=== PATIENT | female | born 1950 | race Caucasian/White ===

== ENCOUNTER 2016-10-10 14:32 | Inpatient (IN) | payer OTHER ==
--- NOTE | 2016-10-10 15:12 | PDOC ---
Attending Attestation - Resident Resident Name: Tj Carvajalson - ED Attending Attestation I have performed the following: I have examined & evaluated the patient, The case was reviewed & discussed with the resident, I agree w/resident's findings & plan, Exceptions are as noted - HPI HPI: 66 yo F history ESRD on HD (, , ), CVA, HTN, HL, GERD, prior kidney transplant (failed in 2011, back on dialysis since then) presents with elevated potassium. She states she was at [facility] yesterday for routine outpatient follow-up , had blood drawn. She was called back this morning with an abnormal value of 7. She states she is asymptomatic. She is due for dialysis tomorrow, but states she does not feel fluid-overloaded. Denies fever, cp, recent illness. - Physicial Exam PE: GENERAL: Awake, alert, and fully oriented, in no acute distress HEAD: No signs of trauma EYES: PERRLA, EOMI, sclera anicteric, conjunctiva clear ENT: Auricles normal inspection, hearing grossly normal, nares patent, oropharynx clear without exudates. Moist mucosa NECK: Normal ROM, supple, no lymphadenopathy, JVD, or masses LUNGS: Breath sounds equal, clear to auscultation bilaterally. No wheezes, and no crackles HEART: Regular rate and rhythm, normal S1 and S2, no murmurs, rubs or gallops ABDOMEN: Soft, nontender, normoactive bowel sounds. No guarding, no rebound. No masses EXTREMITIES: L upper arm with AV fistula, +thrill. Remainder of extremities with normal range of motion, no edema. No clubbing or cyanosis. No cords, erythema, or tenderness NEUROLOGICAL: Cranial nerves II through XII grossly intact. Normal speech, normal gait SKIN: Warm, Dry, normal turgor, no rashes or lesions noted. - Medical Decision Making Pt presents with elevated potassium on outpatient labs. EKG is normal sinus rhythm, possibly slight peaking in V3. Will send labs to recheck electrolytes. If K is elevated, will treat medically and call Dr. Fletcher for HD. Heart Score/ECG Review - ECG Impressions Comment:: EKG read 15:28- NSR 66 bpm, no ST elevations/depression. Slight peaking of T wave in V3.
[2016-10-10 16:06] LABS: MCH 28.2 pg (25.7-33.7); MCHC 31.3 g/dl (32.0-36.0); MEAN CELL VOLUME 90.3 fl (80-96); MEAN PLT VOLUME 8.5 fl (7.5-11.1); PLATELET COUNT 116 K/MM3 (134-434); RDW 15.3 % (11.6-15.6); WHITE BLOOD COUNT 5.5 K/mm3 (4.0-10.0)
--- NOTE | 2016-10-10 16:31 | PDOC ---
History of Present Illness - General Chief Complaint: Revisit, Lab Variance Stated Complaint: POTASSIUM IS VERY HIGH/SENT BY PCP Time Seen by Provider: 10/10/16 15:09 - History of Present Illness Initial Comments: 10/10/16 16:24 66 yo F with HTN, CAD, ESRD, on HD, and s/p right renal kidney transplant ( 2006 ) who presents with hyperkalemia. Pt. reports that she was at [facility] for conference regarding left kidney transplant following transplant kidney failure 2014. and had laboratory blood draw. When she arrived home she received telephone notification that her potassium levels were elevated ( K+ 7 ) and she should go to ED. She is currently asymptomatic and denies N/V, fatigue , SOB, chest pain, blurred vision, DAVILA, urinary, or abdominal complaints. Undergoes dialysis Monday, , and Monday. Takes 2 Units Insulin at night. Past History - Past Medical History Allergies/Adverse Reactions: Allergies Allergy/AdvReac Type Severity Reaction Status Date / Time codeine Allergy Verified 10/10/16 15:00 promethazine HCl Allergy Verified 10/10/16 15:00 [From Phenergan] Home Medications: Ambulatory Orders Atorvastatin Ca [Lipitor] 20 mg PO HS 11/12/15 Insulin Aspart [Novolog Flexpen] 0 unit SQ DAILY 11/12/15 Pantoprazole Sodium [Protonix] 20 mg PO DAILY 11/12/15 Levetiracetam [Keppra -] 250 mg PO BID 30 Days 11/16/15 Aspirin [ASA -] 81 mg PO DAILY #30 tab.chew 11/17/15 Clopidogrel Bisulfate [Plavix -] 75 mg PO DAILY tablet 11/17/15 Metoprolol Tartrate [Lopressor -] 50 mg PO BID #60 tablet 11/17/15 Calcium Acetate [Phoslo -] 667 mg PO TIDCM 12/01/15 Insulin Degludec [Tresiba Flextouch U-100] 10 unit SQ ACBK 12/01/15 Nifedipine [Nifedipine ER] 60 mg PO HS 12/01/15 Anemia: Yes Cancer: No Cardiac Disorders: No CVA: Yes (L sided weakness) COPD: No CHF: No Dementia: No Diabetes: Yes Dialysis: Yes (FISTULA L UPPER ARM, KIDNEY TRANSPLANT) GI Disorders: Yes (GERD) Disorders: No HTN: Yes Hypercholesterolemia: Yes Liver Disease: No Seizures: No Thyroid Disease: No - Surgical History Abdominal Surgery: Yes Appendectomy: Yes Neurologic Surgery: No - Immunization History Immunization Up to Date: Yes - Psycho/Social/Smoking Cessation Hx Anxiety: No Suicidal Ideation: No Smoking Status: No Smoking History: Never smoked Have you smoked in the past 12 months: No Number of Cigarettes Smoked Daily: 0 Hx Alcohol Use: No Drug/Substance Use Hx: No Substance Use Type: None Hx Substance Use Treatment: No Review of Systems - Review of Systems Comments:: 10/10/16 16:32 GENERAL/CONSTITUTIONAL: No fever or chills. No weakness. HEAD, EYES, EARS, NOSE AND THROAT: No change in vision. No ear pain or discharge. No sore throat. CARDIOVASCULAR: No chest pain or shortness of breath RESPIRATORY: No cough, wheezing, or hemoptysis. GASTROINTESTINAL: No nausea, vomiting, diarrhea or constipation. GENITOURINARY: No dysuria, frequency, or change in urination. MUSCULOSKELETAL: No joint or muscle swelling or pain. No neck or back pain. SKIN: No rash NEUROLOGIC: No headache, vertigo, loss of consciousness, or change in strength/ sensation. ENDOCRINE: No increased thirst. No abnormal weight change HEMATOLOGIC/LYMPHATIC: No anemia, easy bleeding, or history of blood clots. ALLERGIC/IMMUNOLOGIC: No hives or skin allergy. *Physical Exam - Vital Signs Last Vital Signs Temp Pulse Resp BP Pulse Ox 97.9 F 66 19 190/87 98 10/10/16 15:00 10/10/16 15:00 10/10/16 15:00 10/10/16 15:00 10/10/16 15:56 - Physical Exam Comments: 10/10/16 16:32 GENERAL: Awake, alert, and fully oriented, in no acute distress HEAD: No signs of trauma, normocephalic, atraumatic EYES: PERRLA, EOMI, sclera anicteric, conjunctiva clear ENT: Auricles normal inspection, hearing grossly normal, nares patent, oropharynx clear without exudates. Moist mucosa NECK: Normal ROM, supple, no lymphadenopathy, JVD, or masses LUNGS: No distress, speaks full sentences, clear to auscultation bilaterally HEART: Regular rate and rhythm, normal S1 and S2, no murmurs, rubs or gallops, peripheral pulses normal and equal bilaterally. ABDOMEN: Soft, nontender, normoactive bowel sounds. No guarding, no rebound. No masses EXTREMITIES: + AV fistula intact left sided antecubital fossa.Normal inspection , Normal range of motion, no edema. No clubbing or cyanosis. NEUROLOGICAL: Cranial nerves II through XII grossly intact. Normal speech, normal gait, no focal sensorimotor deficits SKIN: Warm, Dry, normal turgor, no rashes or lesions noted. Heart Score/ECG Review - History History: Slightly suspicious - Electrocardiogram EKG: Normal - Age Age: 45-65 - Risk Factors Risk Factors Heart Score: Yes Hx Hypercholesterolemia, Yes Hx Hypertension, Yes Hx Diabetes Based on the list above the patient has:: >/=3 risk factors or Hx atherosclerotic disease - ECG Intrepretation Rhythm: Regular Rhythm - [place]: Normal - P and [place] Delta Wave(s) Present: No WPW: No - ST and T T Wave Elevation Suggest: Electrolyte Imbalance Comment:: 10/10/16 17:21 Peaked T wave in V3 - ECG Impressions Normal ECG: No Bradycardia: No Torsades gia Pointes: No WPW: No ED Treatment Course - LABORATORY CBC & Chemistry Diagram: 10/10/16 15:56 10/10/16 15:56 - ADDITIONAL ORDERS Additional order review: 10/10/16 15:56 RBC 4.24 MCV 90.3 MCHC 31.3 L RDW 15.3 D MPV 8.5 Neutrophils % Y Lymphocytes % Y Medical Decision Making - Medical Decision Making 10/10/16 16:33 66 yo F with h/o CAD, HTN, ESRD on HD ( , , ) , S/P renal right sided renal transplant ( 2006) who presents with hyperkalemia. Currently asymptomatic. ED Course: EKG : Peaked T wave in V3 10/10/16 16:38 CBC- Unremarkable 10/10/16 17:00 CMP: K+ 6.6, Cr Calcium Gluconate, Insulin 6 units, Sodium Bicarbonate 10/10/16 17:22 Contacted Nephrology: Dialysis and admit to Med/Tele 10/10/16 17:22 *DC/Admit/Observation/Transfer Diagnosis at time of Disposition: Acute hyperkalemia, ESRD (end stage renal disease) on dialysis, Abnormal ECG - Discharge Dispostion Condition at time of disposition: Good
[2016-10-10 16:35] LABS: PLATELET ESTIMATE DECREASED (NORMAL)
[2016-10-10 16:43] LABS: ALBUMIN 3.8 g/dl (3.4-5.0); ALK PHOS 68 U/L (45-117); ANION GAP 9 (8-16); BILIRUBIN,TOTAL 0.3 mg/dL (0.2-1.0); CALCIUM 8.9 mg/dL (8.5-10.1); CO2 25 mmol/L (21-32); GLUCOSE,RANDOM 150 mg/dL (74-106); SGOT/AST 25 U/L (15-37); SGPT/ALT 29 U/L (12-78); TOT PROT 8.8 g/dl (6.4-8.2)
[2016-10-10] MEDS ORDERED: CALCIUM GLUCONATE 10% - 1,000 MG/10 ML VIAL IVPUSH ONE (16:56)
[2016-10-10] MEDS ORDERED: SODIUM BICARBONATE 8.4% 50 MEQ/50 ML DISP.SYRIN IVPUSH ONE (16:57)
[2016-10-10] MEDS ORDERED: INSULIN REGULAR HUMAN 100 UNITS/ML *VIAL IVPUSH ONE (16:57)
[2016-10-10] MEDS ORDERED: DEXTROSE 50%-WATER - 25 GM/50 ML VIAL IVPUSH ONE (16:58)
[2016-10-10] MEDS ORDERED: DEXTROSE 50%-WATER - 25 GM/50 ML VIAL ONE (17:18)
[2016-10-10] MEDS ORDERED: CALCIUM GLUCONATE 10% - 1,000 MG/10 ML VIAL ONE (17:19)
[2016-10-10] MEDS ORDERED: INSULIN REGULAR HUMAN 100 UNITS/ML *VIAL ONE (17:19)
[2016-10-10] MEDS ORDERED: SODIUM BICARBONATE 8.4% 50 MEQ/50 ML VIAL ONE (17:19)
--- NOTE | 2016-10-10 18:08 | PDOC ---
*Physical Exam - Vital Signs Last Vital Signs Temp Pulse Resp BP Pulse Ox 97.9 F 66 19 190/87 98 10/10/16 15:00 10/10/16 15:00 10/10/16 15:00 10/10/16 15:00 10/10/16 15:56 ED Treatment Course - LABORATORY CBC & Chemistry Diagram: 10/10/16 15:56 10/10/16 15:56 - ADDITIONAL ORDERS Additional order review: Laboratory Results 10/10/16 15:56 Sodium 133 L Potassium 6.4 H* D Chloride 99 Carbon Dioxide 25 Anion Gap 9 BUN 38 H D Creatinine 8.0 H* Creat Clearance w eGFR 5.07 Random Glucose 150 H Calcium 8.9 D Total Bilirubin 0.3 D AST 25 ALT 29 D Alkaline Phosphatase 68 Total Protein 8.8 H Albumin 3.8 10/10/16 15:56 RBC 4.24 MCV 90.3 MCHC 31.3 L RDW 15.3 D MPV 8.5 Neutrophils % 42.0 L D Lymphocytes % 30.0 Monocytes % 6.0 Eosinophils % 22.0 H* - Medications Given in the ED: ED Medications Discontinued Medications Generic Name Dose Route Start Last Admin Trade Name Freq PRN Reason Stop Dose Admin Calcium Gluconate 1,000 mg 10/10/16 16:56 10/10/16 17:33 Calcium Gluconate 10% - IVPUSH 10/10/16 16:57 1,000 mg ONCE ONE Administration Dextrose 50 gm 10/10/16 16:58 10/10/16 17:33 D50w (Vial) - IVPUSH 10/10/16 16:59 50 gm NOW ONE Administration Insulin Human Regular 6 units 10/10/16 16:57 10/10/16 17:33 Novolin R Vial *For Ivpush Or Iv Drip Only* IVPUSH 10/10/16 16:58 6 units ONCE ONE Administration Sodium Bicarbonate 50 meq 10/10/16 16:57 10/10/16 17:33 Sodium Bicarbonate 8.4% - IVPUSH 10/10/16 16:58 50 meq ONCE ONE Administration *DC/Admit/Observation/Transfer Diagnosis at time of Disposition: Acute hyperkalemia, ESRD (end stage renal disease) on dialysis, Abnormal ECG - Discharge Dispostion Condition at time of disposition: Good Admit: Yes
--- NOTE | 2016-10-10 18:27 | HP ---
Admitting History and Physical - Admission Chief Complaint: hyperkalemia History of Present Illness: This is a 66 year old female with HTN, HLD, TIA x2 in 2016 ( no deficits), ESRD on HD , , , kidney transplant 2006, (failed in 2014 resumed HD). Today she was at [place] when [place] were drawn. Following her appt she went home and was called to go to hospital due to hyperkalemia from afternoon blood draw. She denies palpitations, lightheadedness, muscle weakness , weakness. She is very hungry. In may 2016 she was on operating table to receive second transplant when canceled due to cancer found in organ. History Source: Patient, Family Member - Past Medical History BRICK BAKER: Yes: CVA, TIA Cardiovascular: Yes: HTN, Hyperlipdemia Gastrointestinal: Yes: Other Renal/: Yes: Renal Failure (on HD ()), Other (s/p DDRT 2006) Heme/Onc: Yes: Anemia Endocrine: Yes: Diabetes Mellitus - Past Surgical History Past Surgical History: Yes: Appendectomy, , Hysterectomy, Kidney Transplant (2006 DDKT) - Smoking History Smoking history: Never smoked Have you smoked in the past 12 months: No Aproximately how many cigarettes per day: 0 - Alcohol/Substance Use Hx Alcohol Use: No - Social History ADL: Independent History of Recent Travel: No (traveled to [place] in August 2013) Home Medications - Allergies Allergies/Adverse Reactions: Allergies Allergy/AdvReac Type Severity Reaction Status Date / Time codeine Allergy Verified 10/10/16 15:00 promethazine HCl Allergy Verified 10/10/16 15:00 [From Phenergan] - Home Medications Home Medications: Ambulatory Orders Atorvastatin Ca [Lipitor] 20 mg PO HS 11/12/15 Insulin Aspart [Novolog Flexpen] 0 unit SQ DAILY 11/12/15 Pantoprazole Sodium [Protonix] 20 mg PO DAILY 11/12/15 Levetiracetam [Keppra -] 250 mg PO BID 30 Days 11/16/15 Aspirin [ASA -] 81 mg PO DAILY #30 tab.chew 11/17/15 Clopidogrel Bisulfate [Plavix -] 75 mg PO DAILY tablet 11/17/15 Metoprolol Tartrate [Lopressor -] 50 mg PO BID #60 tablet 11/17/15 Calcium Acetate [Phoslo -] 667 mg PO TIDCM 12/01/15 Insulin Degludec [Tresiba Flextouch U-100] 10 unit SQ ACBK 12/01/15 Nifedipine [Nifedipine ER] 60 mg PO HS 12/01/15 Family Disease History - Family Disease History Family Disease History: Diabetes: Mother, Brother, Sister Review of Systems - Review of Systems Constitutional: reports: No Symptoms Eyes: reports: No Symptoms HENT: reports: No Symptoms Neck: reports: No Symptoms Cardiovascular: reports: No Symptoms Respiratory: reports: No Symptoms Gastrointestinal: reports: No Symptoms Genitourinary: reports: No Symptoms Breasts: reports: No Symptoms Reported Musculoskeletal: reports: No Symptoms Integumentary: reports: No Symptoms Neurological: reports: No Symptoms Endocrine: reports: No Symptoms Hematology/Lymphatic: reports: No Symptoms Psychiatric: reports: No Symptoms Physical Examination Vital Signs: Vital Signs Temperature 97.9 F 10/10/16 15:00 Pulse Rate 66 10/10/16 15:00 Respiratory Rate 19 10/10/16 15:00 Blood Pressure 190/87 10/10/16 15:00 O2 Sat by Pulse Oximetry (%) 98 10/10/16 15:56 Constitutional: Yes: No Distress Eyes: Yes: Conjunctiva Clear HENT: Yes: Atraumatic Neck: Yes: Supple Cardiovascular: Yes: Regular Rate and Rhythm, S1, S2 Respiratory: Yes: Regular, CTA Bilaterally Gastrointestinal: Yes: Normal Bowel Sounds, Soft Renal/: Yes: Anuria Musculoskeletal: Yes: WNL Extremities: Yes: WNL, Other (LUE AVF + thrill) Edema: No Peripheral Pulses WNL: Yes Integumentary: Yes: WNL Neurological: Yes: Alert, Oriented, Cran Nerves II-XII Intact Psychiatric: Yes: Alert, Oriented Labs: CBC, BMP 10/10/16 15:56 10/10/16 15:56 Imaging - Results EKG: Other (per ED reading slight peaked T in V3) Problem List - Problems (1) ESRD (end stage renal disease) on dialysis Code(s): N18.6 - END STAGE RENAL DISEASE Z99.2 - DEPENDENCE ON RENAL DIALYSIS (2) HLD (hyperlipidemia) Code(s): E78.5 - HYPERLIPIDEMIA, UNSPECIFIED (3) Diabetes mellitus Code(s): E11.9 - TYPE 2 DIABETES MELLITUS WITHOUT COMPLICATIONS Qualifiers: (4) Hyperkalemia Code(s): E87.5 - HYPERKALEMIA (5) Hypertension Code(s): I10 - ESSENTIAL (PRIMARY) HYPERTENSION (6) Kidney transplant failure Code(s): T86.12 - KIDNEY TRANSPLANT FAILURE (7) TIA (transient ischemic attack) Code(s): G45.9 - TRANSIENT CEREBRAL ISCHEMIC ATTACK, UNSPECIFIED Qualifiers: Transient cerebral ischemia type: carotid artery syndrome (hemispheric) Qualified Code(s): G45.1 - Carotid artery syndrome (hemispheric) Assessment/Plan Assessment: 66 year old female ESRD on HD admitted with hyperkalemia Plan: 1. Hyperkalemia - Insulin, dextrose bicarb, ca gluconate given in ED - For emergent HD tonight - Follow EKG - Admit telemetry - Dr. León nephrology aware 2. ESRD on chronic HD T - Continue HD per renal service - Phos TID 667 TID - 3. HTN - Procardia 60mg HS - Lopressor 50mg TID 4. TIA - Keppra 250mg BID - pt unclear why she takes it, ?empiric seizures - Plavix 75mg daily - ASA 81mg 5. HLD - Lipitor 20mg HS 6. DM II - ISS, BGM ACHS - Levemir 10units AM Visit type - Emergency Visit Emergency Visit: Yes ED Registration Date: 10/10/16 Care time: The patient presented to the Emergency Department on the above date and was hospitalized for further evaluation of their emergent condition. - New Patient This patient is new to me today: Yes Date on this admission: 10/11/16 - Critical Care Critical Care patient: No
[2016-10-10] MEDS ORDERED: METOPROLOL TARTRATE 50 MG TABLET (FP) PO ONE (18:30)
[2016-10-10] MEDS ORDERED: METOPROLOL TARTRATE 50 MG TABLET (FP) ONE (18:50)
[2016-10-10] MEDS: HEPARIN NA (PORCINE) 5,000 UNITS/ML 1ML VIAL SQ SCH (22:00)
[2016-10-10] MEDS ORDERED: NIFEdipine E.R 60 MG TABLET (UD) PO SCH (22:00)
[2016-10-10] MEDS: METOPROLOL TARTRATE 50 MG TABLET (FP) PO SCH (22:00)
[2016-10-10] MEDS ORDERED: ATORVASTATIN CA 20 MG TABLET (FP) PO SCH (22:00)
[2016-10-11] MEDS: INSULIN SLIDING SCALE (NOVOLOG) 1 VIAL SQ SCH ×3 (02:06→11:17)
[2016-10-11] MEDS: levETIRAcetam 250 MG TABLET (FP) PO SCH ×2 (02:08→11:15)
[2016-10-11] MEDS: HEPARIN NA (PORCINE) 5,000 UNITS/ML 1ML VIAL SQ SCH (06:36)
[2016-10-11] MEDS ORDERED: INSULIN DETEMIR 100 UNITS/ML MDV SQ SCH (07:00)
[2016-10-11 08:04] LABS: BASOPHIL 2.4 % (0-2.0); EOSINOPHIL 15.6 % (0-4.5); MCHC 32.4 g/dl (32.0-36.0); MEAN CELL VOLUME 89.5 fl (80-96); MEAN PLT VOLUME 8.8 fl (7.5-11.1); NEUTROPHILS 54.5 % (42.8-82.8); PLATELET COUNT 110 K/MM3 (134-434); RDW 15.5 % (11.6-15.6); WHITE BLOOD COUNT 5.2 K/mm3 (4.0-10.0)
[2016-10-11 08:33] LABS: ANION GAP 10 (8-16); CALCIUM 8.8 mg/dL (8.5-10.1); CO2 29 mmol/L (21-32); CREATININE 4.5 mg/dL (0.55-1.02); GLUCOSE,RANDOM 125 mg/dL (74-106); MAGNESIUM 1.8 mg/dL (1.8-2.4)
[2016-10-11 08:35] LABS: PHOSPHOROUS 3.4 mg/dL (2.5-4.9)
[2016-10-11] MEDS ORDERED: ASPIRIN 81 MG CHEWABLE TABLETS PO SCH (10:00)
[2016-10-11] MEDS ORDERED: PANTOPRAZOLE 20 MG TABLET (FP) PO SCH (10:00)
[2016-10-11] MEDS ORDERED: CLOPIDOGREL BISULFATE 75 MG TABLET (FP) PO SCH (10:00)
[2016-10-11 11:02] VITALS: BP 194/78; PULSE 63; TEMP 97.9
[2016-10-11] MEDS: METOPROLOL TARTRATE 50 MG TABLET (FP) PO SCH (11:14)
[2016-10-11] MEDS: CALCIUM ACETATE 667 MG CAPSULE (FP) PO SCH ×2 (11:15)
[2016-10-11 11:21] VITALS: BMI 25.0
--- NOTE | 2016-10-11 11:21 | CON.NEP ---
Consult Consult Specialty:: Nephrology Referred by:: Dr. Mcdermott Reason for Consultation:: ESRD on HD, Hyperkalemia - History of Present Illness Chief Complaint: Hyperkalemia History of Present Illness: 66 year old woman with PMhx of ESRD on HD, Hx of Renal transplant s/p chronic rejection, Hypertension, Hyperlipidemia who was called to come to the ER by her transplant director of public works because her outpatient labs showed K of 7. Pt had dialysis on Monday w/o any issues. Pt reports having some food at her mothers house that she feels may have had high potassium ingredients but she is not sure. Pt had peaked t waves on admission. s/p urgent HD last night. Pt currently denies any CP, DAVILA, SOB, N/V/D, Muscle weakness. - History Source History Provided By: Patient Limitations to Obtaining History: No Limitations - Past Medical History CUTTER GAS: Yes: CVA, TIA Cardio/Vascular: Yes: HTN, Hyperlipdemia Gastrointestinal: Yes: Other Renal/: Yes: Renal Failure (on HD ()), Other (s/p DDRT 2006) ...: No Endocrine: Yes: Diabetes Mellitus - Past Surgical History Past Surgical History: Yes: Appendectomy, , Hysterectomy, Kidney Transplant (2006 DDKT) - Alcohol/Substance Use Hx Alcohol Use: No - Smoking History Smoking history: Never smoked Have you smoked in the past 12 months: No Aproximately how many cigarettes per day: 0 - Social History Usual Living Arrangement: With Significant Other ADL: Independent History of Recent Travel: No (traveled to [place] in August 2013) Home Medications - Allergies Allergies/Adverse Reactions: Allergies Allergy/AdvReac Type Severity Reaction Status Date / Time codeine Allergy Verified 10/10/16 15:00 promethazine HCl Allergy Verified 10/10/16 15:00 [From Phenergan] - Home Medications Home Medications: Ambulatory Orders Atorvastatin Ca [Lipitor] 20 mg PO HS 11/12/15 Insulin Aspart [Novolog Flexpen] 0 unit SQ DAILY 11/12/15 Pantoprazole Sodium [Protonix] 20 mg PO DAILY 11/12/15 Levetiracetam [Keppra -] 250 mg PO BID 30 Days 11/16/15 Aspirin [ASA -] 81 mg PO DAILY #30 tab.chew 11/17/15 Clopidogrel Bisulfate [Plavix -] 75 mg PO DAILY tablet 11/17/15 Metoprolol Tartrate [Lopressor -] 50 mg PO BID #60 tablet 11/17/15 Calcium Acetate [Phoslo -] 667 mg PO TIDCM 12/01/15 Insulin Degludec [Tresiba Flextouch U-100] 10 unit SQ ACBK 12/01/15 Nifedipine [Nifedipine ER] 60 mg PO HS 12/01/15 Family Disease History - Family Disease History Family Disease History: Diabetes: Mother, Brother, Sister Review of Systems - Review of Systems Constitutional: reports: No Symptoms Eyes: reports: No Symptoms HENT: reports: No Symptoms, Ocular Prosthesis Cardiovascular: reports: No Symptoms Respiratory: reports: No Symptoms Gastrointestinal: reports: No Symptoms Genitourinary: reports: No Symptoms Musculoskeletal: reports: No Symptoms Integumentary: reports: No Symptoms Neurological: reports: No Symptoms Nephrology Consult - Height Height: 5 ft 4 in - Weight Weight: 145 lb 12.8 oz - BMI Body Mass Index (BMI): 25.0 - Lab Results CBC,BMP: CBC, BMP 10/11/16 05:35 10/11/16 08:15 Anion Gap: Anion Gap Anion Gap 10 (8-16) 10/11/16 08:15 - Imaging Chest X-ray: Report Reviewed - Physical Examination Vital Signs: Vital Signs Temperature 97.9 F 10/11/16 08:00 Pulse Rate 63 10/11/16 08:00 Respiratory Rate 18 10/11/16 08:00 Blood Pressure 194/78 10/11/16 08:00 O2 Sat by Pulse Oximetry (%) 98 10/10/16 23:00 Constitutional: Yes: Well Nourished, No Distress HENT: Yes: Atraumatic Neck: Yes: Supple Cardiovascular: Yes: Regular Rate and Rhythm, Murmur, S1, S2. No: JVD Respiratory: Yes: Regular, CTA Bilaterally Gastrointestinal: Yes: Normal Bowel Sounds, Soft Extremities: No: Cold, Cool, Cyanosis Edema: No Neurological: Yes: Alert, Oriented Assessment/Plan 66 year old woman with PMhx of ESRD on HD, Hx of Renal transplant s/p chronic rejection, Hypertension, Hyperlipidemia who was called to come to the ER by her transplant director of public works because her outpatient labs showed K of 7. #ESRD on HD with Hyperkalemia hyperkalemia likely due to dietary indiscretion Access flow during HD was normal and thus less likely a problem with AVF Pt counseled regarding importance of adherence to low k diet s/p HD last night, no indication for further tx today to resume outpatient HD on #Hypertension Continue Nifedipine and Metoprolol #CVA on ASA/Plavix #Renal Osteodystrphy continue phoslo with meals low phos diet Thank you Nicolas Campoverde DO
--- NOTE | 2016-10-11 12:21 | DS ---
Physical Exam: SUBJECTIVE: Patient seen and examined. She tolerated HD overnight, completed around 2-230am. She says she thinks her mother gave her food and thats what made her potassium go up, it was the only change. Currently denies palpitations , sob, weakness. OBJECTIVE: Vital Signs Period Temp Pulse Resp BP Sys/Travis Pulse Ox Last 24 Hr 97.5 F-98.1 F 59-66 16-20 117-222/58-113 96-100 PE Neuro: alert, awake, cn 2-12intact Pulm: left base crackles, no wheezing CV: s1 s2 rrr no mrg Abd: s nt nd +bs Ext: LUE AVF + thrill, no le edema Laboratory Results - last 24 hr 10/10/16 10/11/16 10/11/16 18:47 05:35 05:35 WBC 5.2 RBC 4.03 Hgb 11.7 Hct 36.1 MCV 89.5 MCH 29.0 MCHC 32.4 RDW 15.5 Plt Count 110 L MPV 8.8 Neutrophils % 54.5 D Lymphocytes % 19.0 D Monocytes % 8.5 Eosinophils % 15.6 H Basophils % 2.4 H Sodium Potassium Chloride Carbon Dioxide Anion Gap BUN Creatinine POC Glucometer [phone] Random Glucose Calcium Phosphorus Magnesium Cancelled Triglycerides Cholesterol Total LDL Cholesterol HDL Cholesterol 10/11/16 10/11/16 10/11/16 06:37 08:15 08:15 WBC RBC Hgb Hct MCV MCH MCHC RDW Plt Count MPV Neutrophils % Lymphocytes % Monocytes % Eosinophils % Basophils % Sodium 137 Potassium 4.4 D Chloride 98 Carbon Dioxide 29 Anion Gap 10 BUN 15 D Creatinine 4.5 H D POC Glucometer 118 Random Glucose 125 H Calcium 8.8 Phosphorus 3.4 Magnesium 1.8 Triglycerides 102 D Cholesterol 104 Total LDL Cholesterol 51 HDL Cholesterol 41 HOSPITAL COURSE: Date of Admission:10/10/16 Date of Discharge: 10/11/16 Minutes to complete discharge: 37 Discharge Summary Reason For Visit: END STAGE RENAL FAILURE; DIABETES; HYPERTENSION Current Active Problems Abnormal ECG (Acute) Abnormal blood pressure (Acute) Acute hyperkalemia (Acute) DVT prophylaxis (Acute) ESRD (end stage renal disease) on dialysis (Acute) HLD (hyperlipidemia) (Acute) Valvular heart disease (Acute) Hospital Course: Initial Hospital Course: Briefly, this 66 year old female with HTN, HLD, TIA x2 in 2016 ( no deficits), ESRD on HD T, , S, kidney transplant 2006, (failed in 2014 resumed HD). presented to ED after transplant labs reveled K of 7, needing emergent dialysis. This is her first emergency 1 year. Subsequent Hospital Course/Progress Note/Discharge Summary: Plan: 1. ESRD on HD with hyperkalemia - Hyperkalemia resolved - Tolerated emergent HD - Per Renal flow normal, no issues with fistula - Resume HD on as outpt, no HD today 2. HTN - Continue Nifedipine - Continue Metoprolol 3. CVA/TIA - Continue ASA/Plavix - Keppra 250mg BID 4. Renal Osteodystrphy - Phoslo with meals 5. DM II - Resume home insulin 6. HLD - Statin Dispo: - Home with HD as outpt - PT aware and agrees to above plan Condition: Stable - Instructions Diet, Activity, Other Instructions: Please return to the ED for any new, persistent, or worsening symptoms. Follow up with your PCP in 1 week. Keep scheduled HD appt this Keep away from potassium enriched foods Take home medications as directed on home medication list Follow up with Transplant kidney doctor on and make sure they check your blood levels again Referrals: Loren Lutz MD [Primary Care Provider] - Nicolas Campoverde MD [Staff Physician] - Disposition: HOME - Home Medications Comprehensive Discharge Medication List: Ambulatory Orders Atorvastatin Ca [Lipitor] 20 mg PO HS 11/12/15 Insulin Aspart [Novolog Flexpen] 0 unit SQ DAILY 11/12/15 Pantoprazole Sodium [Protonix] 20 mg PO DAILY 11/12/15 Levetiracetam [Keppra -] 250 mg PO BID 30 Days 11/16/15 Aspirin [ASA -] 81 mg PO DAILY #30 tab.chew 11/17/15 Clopidogrel Bisulfate [Plavix -] 75 mg PO DAILY tablet 11/17/15 Metoprolol Tartrate [Lopressor -] 50 mg PO BID #60 tablet 11/17/15 Calcium Acetate [Phoslo -] 667 mg PO TIDCM 12/01/15 Insulin Degludec [Tresiba Flextouch U-100] 10 unit SQ ACBK 12/01/15 Nifedipine [Nifedipine ER] 60 mg PO HS 12/01/15 Problem List - Problems (1) ESRD (end stage renal disease) on dialysis Code(s): N18.6 - END STAGE RENAL DISEASE Z99.2 - DEPENDENCE ON RENAL DIALYSIS (2) HLD (hyperlipidemia) Code(s): E78.5 - HYPERLIPIDEMIA, UNSPECIFIED (3) Diabetes mellitus Code(s): E11.9 - TYPE 2 DIABETES MELLITUS WITHOUT COMPLICATIONS Qualifiers: (4) Hyperkalemia Code(s): E87.5 - HYPERKALEMIA (5) Hypertension Code(s): I10 - ESSENTIAL (PRIMARY) HYPERTENSION (6) Kidney transplant failure Code(s): T86.12 - KIDNEY TRANSPLANT FAILURE (7) TIA (transient ischemic attack) Code(s): G45.9 - TRANSIENT CEREBRAL ISCHEMIC ATTACK, UNSPECIFIED Qualifiers: Transient cerebral ischemia type: carotid artery syndrome (hemispheric) Qualified Code(s): G45.1 - Carotid artery syndrome (hemispheric) This patient is new to me today: No Emergency Visit: Yes ED Registration Date: 10/10/16 Care time: The patient presented to the Emergency Department on the above date and was hospitalized for further evaluation of their emergent condition. Critical Care patient: No - Discharge Referral Referred to [facility] No
--- NOTE | 2016-10-11 13:58 | EKG ---
Test Reason : Blood Pressure : / mmHG Vent. Rate : 067 BPM Atrial Rate : 067 BPM P-R Int : 182 ms QRS Dur : 094 ms QT Int : 474 ms P-R-T Axes : 012 011 069 degrees QTc Int : 500 ms NORMAL SINUS RHYTHM PROLONGED QT AND U WAVES NON SPECIFIC T WAVE ABNORMALITIES IN aVL ABNORMAL ECG WHEN COMPARED WITH ECG OF 10-OCT-2016 18:58, NO MAJOR CHANGES SEEN Confirmed by PASTORA SHETH MD ([id number]) on 10/11/2016 1:58:17 PM Referred By: Akua PINTO Confirmed By:PASTORA SHETH MD
--- NOTE | 2016-10-11 20:49 | EKG ---
Test Reason : Blood Pressure : / mmHG Vent. Rate : 066 BPM Atrial Rate : 066 BPM P-R Int : 196 ms QRS Dur : 098 ms QT Int : 456 ms P-R-T Axes : 045 021 067 degrees QTc Int : 478 ms NORMAL SINUS RHYTHM NORMAL ECG WHEN COMPARED WITH ECG OF 27-DEC-2015 09:28, T WAVES ARE MORE INVERTED IN aVL REPEAT EKG IF CLINICALLY INDICATED Confirmed by PASTORA SHETH MD ([id number]) on 10/11/2016 8:48:49 PM Referred By: Confirmed By:PASTORA SHETH MD
--- NOTE | 2016-10-12 12:57 | EKG ---
Test Reason : Blood Pressure : / mmHG Vent. Rate : 070 BPM Atrial Rate : 070 BPM P-R Int : 192 ms QRS Dur : 098 ms QT Int : 450 ms P-R-T Axes : 036 011 050 degrees QTc Int : 486 ms NORMAL SINUS RHYTHM NORMAL ECG WHEN COMPARED WITH ECG OF 10-OCT-2016 15:22, NO SIGNIFICANT CHANGE WAS FOUND Confirmed by JOSE WOLF MD ([id number]) on 10/12/2016 12:57:02 PM Referred By: Confirmed By:JOSE WOLF MD
[2016-10-12 14:14] LABS: HEP B SURFACE AB Reactive (.)
== END 2016-10-11 13:38 | disposition home or self-care (01) | DRG 425 ==
LOC: JER 14:32 → JERBED 18:08 → J4W 21:53
PROVIDERS: ADMIT Internal Medicine; ATTEND Nurse Practitioner Acute Care
PROC: 5A1D00Z (ICD-10-PCS; principal; 2016-10-10)
DX: E87.5 Hyperkalemia (principal); I12.0 Hypertensive chronic kidney disease with stage 5 chronic kidney disease or end stage renal disease; E11.22 Type 2 diabetes mellitus with diabetic chronic kidney disease; N18.6 End stage renal disease; D64.9 Anemia, unspecified; E78.5 Hyperlipidemia, unspecified; T86.12 Kidney transplant failure; I25.10 Atherosclerotic heart disease of native coronary artery without angina pectoris; Z94.0 Kidney transplant status; R94.31 Abnormal electrocardiogram [ECG] [EKG]; Z99.2 Dependence on renal dialysis; Z86.73 Personal history of transient ischemic attack (TIA), and cerebral infarction without residual deficits
CPT/HCPCS: 36415; 80048; 80053; 80061; 83721; 83735; 84100; 84484; 85025; 86704; 86706; 86708; 86803; 87340; 93005; 93010; 99283-25; J1644

== ENCOUNTER 2016-10-31 10:40 | Inpatient (IN) | payer OTHER ==
[2016-10-31 10:47] VITALS: BMI 26.4
--- NOTE | 2016-10-31 11:26 | PDOC ---
History of Present Illness - General History Source: Patient Exam Limitations: No Limitations - History of Present Illness Initial Comments: 10/31/16 14:01 The patient is a 66 year old female, with a significant past medical history of HTN, CAD, DM, CVA in 2016 with no residual weakness, ESRD, on HD, who presents to the emergency department with right sided numbness, headache, yesterday at 12 :00pm that resolved. The patient also relates having the onset of nausea/ vomiting this morning. The patients family member notes having the patient has been lethargic and more fatigued today and just not herself. The patient reports having bilateral UE numbness/tingling accompanied by a left sided headache. She endorses right leg numbness and tingling upon ED arrival. She denies recent fevers, chills, or dizziness. She denies recent diarrhea or constipation. She denies recent dysuria, frequency, urgency or hematuria. She denies recent chest pain, back pain, neck pain, abdominlal pain. shortness of breath.She denies any vision changes, dizziness, denes any headache currently. Allergies: See Nursing Notes Past surgical history: Right kidney transplant (2006 and failed transplant in May). Social history: Nonsmoker. Denies EtOH use and recreational drug use. Primary Care Physician: Dr. Loren Hernandez <Keny Mai - Last Filed: 10/31/16 14:59> - General History Source: Patient Exam Limitations: No Limitations, Clinical Condition <Luis Escalona - Last Filed: 11/01/16 12:18> - General Chief Complaint: CVA/TIA Stated Complaint: LT SIDE NUMBNESS, SLURRED SPEECH Time Seen by Provider: 10/31/16 10:51 Past History <Keny Mai - Last Filed: 10/31/16 14:59> - Past Medical History Anemia: Yes Cancer: No Cardiac Disorders: No CVA: Yes (L sided weakness) COPD: No CHF: No Dementia: No Diabetes: Yes Dialysis: Yes (FISTULA L UPPER ARM, KIDNEY TRANSPLANT) GI Disorders: Yes (GERD) Disorders: No HTN: Yes Hypercholesterolemia: Yes Liver Disease: No Seizures: No Thyroid Disease: No - Surgical History Abdominal Surgery: Yes Appendectomy: Yes Neurologic Surgery: No - Immunization History Immunization Up to Date: Yes - Psycho/Social/Smoking Cessation Hx Anxiety: No Suicidal Ideation: No Smoking Status: No Smoking History: Never smoked Have you smoked in the past 12 months: No Number of Cigarettes Smoked Daily: 0 Hx Alcohol Use: No Drug/Substance Use Hx: No Substance Use Type: None Hx Substance Use Treatment: No <Luis Escalona - Last Filed: 11/01/16 12:18> - Past Medical History Allergies/Adverse Reactions: Allergies Allergy/AdvReac Type Severity Reaction Status Date / Time codeine Allergy Verified 10/31/16 10:47 promethazine HCl Allergy Verified 10/31/16 10:47 [From Phenergan] Home Medications: Ambulatory Orders Atorvastatin Ca [Lipitor] 20 mg PO HS 11/12/15 Insulin Aspart [Novolog Flexpen] 0 unit SQ DAILY PRN 11/12/15 Pantoprazole Sodium [Protonix] 20 mg PO DAILY 11/12/15 Levetiracetam [Keppra -] 250 mg PO BID 30 Days 11/16/15 Aspirin [ASA -] 81 mg PO DAILY #30 tab.chew 11/17/15 Clopidogrel Bisulfate [Plavix -] 75 mg PO DAILY tablet 11/17/15 Metoprolol Tartrate [Lopressor -] 50 mg PO BID #60 tablet 11/17/15 Calcium Acetate [Phoslo -] 667 mg PO TIDCM 12/01/15 Insulin Degludec [Tresiba Flextouch U-100] 10 unit SQ ACBK 12/01/15 Nifedipine [Nifedipine ER] 60 mg PO HS 12/01/15 Review of Systems - Review of Systems Able to Perform ROS?: Yes Comments:: 10/31/16 14:01 CONSTITUTIONAL: No reported: Fever, Chills, Diaphoresis, Generalized Weakness, Malaise, Loss of Appetite HEENT: No reported: Rhinorrhea, Nasal Congestion, Throat Pain, Throat Swelling, Difficulty Swallowing, Mouth Swelling, Ear Pain, Eye Pain, Visual Changes CARDIOVASCULAR: No reported: Chest Pain, Syncope, Palpitations, Irregular Heart Rate, Lightheadedness, Peripheral Edema RESPIRATORY: No reported: Cough, Shortness of Breath, SOB with Exertion, Orthopnea, Wheezing , Stridor, Hemoptysis GASTROINTESTINAL: +Nausea, Vomiting. No reported: Abdominal pain, Abdominal Distension, Diarrhea, Constipation, Melena, Hematochezia GENITOURINARY: No reported: Dysuria, Frequency, Urgency, Hesitancy, Flank Pain, Genital Pain MUSCULOSKELETAL: No reported: Myalgia, Arthralgia, Joint Swelling, Back pain, Neck Pain SKIN: No reported: Rash, Itching, Pallor HEMATOLOGIC/IMMUNOLOGIC: No reported: Easy Bleeding, Easy Bruising, Lymphadenopathy, Frequent infections ENDOCRINE: No reported: Unexplained Weight Gain, Unexplained Weight Loss, Heat Intolerance , Cold Intolerance NEUROLOGIC: +left sided numbness, Headache, and slurred speech.No reported: Vertigo, Lightheadedness, Unsteady Gait, Seizure, Mental Status Changes, Incontinence PSYCHIATRIC: No reported: Anxiety, Depression <Keny Mai - Last Filed: 10/31/16 14:59> *Physical Exam - Vital Signs Last Vital Signs Temp Pulse Resp BP Pulse Ox 98.6 F 76 16 154/83 100 10/31/16 10:44 10/31/16 10:44 10/31/16 10:44 10/31/16 10:44 10/31/16 10:44 - Physical Exam Comments: 10/31/16 14:01 GENERAL: The patient is awake, alert, and oriented x 2, Nontoxic - in no acute distress. HEAD: Normocephalic, atraumatic. EYES: extraocular movements intact, sclera anicteric, conjunctiva clear. ENT: Normal voice, Moist mucous membranes. NECK: Normal range of motion, supple LUNGS: Breath sounds equal, clear to auscultation bilaterally. No wheezes, no rhonchi, no rales. HEART: Regular rate and rhythm, normal S1 and S2 without murmur, rub or gallop. ABDOMEN: Soft, nontender, normoactive bowel sounds. No guarding, no rebound. . No CVA tenderness EXTREMITIES: Normal range of motion, no edema. No clubbing or cyanosis. No cords, erythema, or tenderness. PSYCH: Normal mood, normal affect. SKIN: Warm, Dry, normal turgor, NEURO: Mental status: The patient is oriented x2, L sided hemineglect, Cranial nerves: Cranial nerves II through XII are intact otherwise Motor: LUE 4/5, LLE 4/5 with mild drift, RUE/LUE 5/5, assistant county engineer strength 5/5 bilaterally Sensation: Sensation is intact to light touch throughout. romberg negative Cerebellar: Rnxnvf-[id number] is imprecise b/l. Gait: deferred <Keny Mai - Last Filed: 10/31/16 14:59> - Vital Signs Last Vital Signs Temp Pulse Resp BP Pulse Ox 98.6 F 76 16 154/83 100 10/31/16 10:44 10/31/16 10:44 10/31/16 10:44 10/31/16 10:44 10/31/16 10:44 <Luis Escalona - Last Filed: 11/01/16 12:18> NIH Stroke Scale - Last Known Well Date/Time & Onset Date Last Known Well: 10/30/16 Time Last Known Well: 12:00 - Initial Evaluation Level of consciousness: Alert Ask patient the month and their age: Answers both correctly Ask patient to open & close eyes; make fist and let go: Obeys both correctly Best gaze (horizontal eye movement): Normal Visual field testing: No visual field loss Facial paresis (Show teeth/raise eyebrows/close eyes tight): Normal symmetrical movement Motor Function: Left Arm: Normal Motor Function: Right Arm: Normal (extends arm 90 (or 45) degrees for 10 seconds without drift Motor Function: Left Leg: Drift Motor Function: Right Leg: Normal (extends leg 30 degrees for 5 seconds without drift) Limb Ataxia: Present in two limbs Sensory(Use pinprick test arms,legs,trunk,face/side to side): Normal Best language (Describe picture, name items, read sentences): No Aphasia Dysarthria (read several words): Normal articulation Extinction and Inattention: No abnormality - Total Score NIH Stroke Scale Score: 3 <Luis Escalona - Last Filed: 11/01/16 12:18> tPA Exclusion Checklist 0-3hr - Time Elapsed Date last known well: 10/30/16 Time last known well: 12:00 (elapsed time approx 1 day) Elaspsed time: 2 Day(s) and 0 Hour(s) and 18 Minutes - Thrombolytic Therapy Candidate Is the patient eligible for Thrombolytic Therapy?: No - Ineligibility reason(s) Reasons No tPA given: Outside of window - delayed arrival <Luis Escalona - Last Filed: 11/01/16 12:18> Heart Score/ECG Review - ECG Impressions Comment:: 10/31/16 11:35 Twelve-lead EKG was performed and reviewed by me. There is normal sinus rhythm with a normal rate. Rate 76 The axis is normal. QTc interval 492 There is normal R wave progression There are no ST or T wave abnormalities. <Luis Escalona - Last Filed: 11/01/16 12:18> Critical Care Time/MDM Note - Medical Decision Making Note: 10/31/16 14:02 Documentation prepared by Keny Mai, acting as medical office worker for Luis Escalona MD. 10/31/16 14:20 Call made to , awaiting call back. 10/31/16 14:58 Call made again to awaiting call back 10/31/16 14:59 Call back from , case discussed. <Keny Mai - Last Filed: 10/31/16 14:59> - Medical Decision Making Note: 10/31/16 11:24 10/31/16 13:40 66y F hx of HL, CVA (no residual deficits), DM, HTN, HL, s/p renal transplant (s /p rejection, currently back on dialysis, last idalysis on sat) presents with AMS. The family notes the pt had an episode of mild headache yesterday around noon associated with R sided arm numbness that resolved after a few hrs (time was incosistent, pt notes 10 min, family notes a few hrs, improved after oriental orthodox) . The pt was feeling fine during day, but family rought the pt back today as she didnt seem herself. On original exam , the pt was able to mvoe all 4 extremities and had EOMI, with perhaps very slighyt weakness of the LUE and LLE (4/5, mild LLE drift) however on repeat exam the pt appears to have some hemineglect of L side. pts CT head shows old infarct but nothing new concerned for possible evloving cva, although not TPA cnadidate due to symptoms that have een present for approx 24 hrs. pt given ASA will notify neurology and will discuss with dr. Hernandez regarding admission A portion of this note was documented by scribe services under my direction. I have reviewed the details of the note, within reason, and agree with the documentation with the following case summary and management plan written by me 10/31/16 15:[address] hernandez - agree with manageemnt, request consult from dr. Palmer , agreed with management and admission will eval patient will admit pt to noncardiac tele for cva Case discussed in detail with admitting physician including history, physical exam and ancillary studies. Admitting physician has assumed care for the patient, will follow all pending diagnostics and will complete the evaluation and treatment. <Luis Escalona - Last Filed: 11/01/16 12:18> Discharge Disposition <Keny Mai - Last Filed: 10/31/16 14:59> - Discharge Dispostion Last Admission D/C Date: 10/11/16 Admit: Yes <Luis Escalona - Last Filed: 11/01/16 12:18> - Diagnosis Mateus-neglect of left side, ESRD (end stage renal disease) on dialysis - Referrals
[2016-10-31] MEDS ORDERED: ONDANSETRON 4 MG/2 ML VIAL IVPB ONE ×2 (11:36→14:01)
[2016-10-31] MEDS ORDERED: ONDANSETRON 4 MG/2 ML VIAL ONE ×2 (11:37→14:05)
[2016-10-31 11:40] LABS: BASOPHIL 0.4 % (0-2.0); EOSINOPHIL 15.1 % (0-4.5); MCH 29.5 pg (25.7-33.7); MCHC 32.2 g/dl (32.0-36.0); MEAN CELL VOLUME 91.6 fl (80-96); MEAN PLT VOLUME 7.9 fl (7.5-11.1); NEUTROPHILS 54.3 % (42.8-82.8); PLATELET COUNT 207 K/MM3 (134-434); RDW 17.2 % (11.6-15.6); WHITE BLOOD COUNT 6.6 K/mm3 (4.0-10.0)
[2016-10-31 12:04] LABS: INR 1.01 (0.82-1.09); PROTHROMBIN TIME (PATIENT) 11.1 SEC (9.98-11.88)
[2016-10-31 12:35] LABS: ALBUMIN 3.9 g/dl (3.4-5.0); ANION GAP 16 (8-16); BILIRUBIN,TOTAL 0.9 mg/dL (0.2-1.0); CALCIUM 7.8 mg/dL (8.5-10.1); CO2 22 mmol/L (21-32); GLUCOSE,RANDOM 180 mg/dL (74-106); SGOT/AST 14 U/L (15-37); SGPT/ALT 24 U/L (12-78)
[2016-10-31 12:41] LABS: ALK PHOS 70 U/L (45-117); CPK 70 IU/L (26-192); TOT PROT 8.6 g/dl (6.4-8.2); TROPONIN I < 0.02 ng/ml (0.00-0.05)
[2016-10-31] MEDS: ASPIRIN 81 MG CHEWABLE TABLETS PO ONE ×2 (13:49→14:24)
[2016-10-31 13:56] LABS: CREATININE 8.4 mg/dL (0.55-1.02)
[2016-10-31] MEDS ORDERED: ASPIRIN 325 MG ENTERIC COATED TABLET (FP) ONE (14:05)
[2016-10-31] MEDS ORDERED: ACETAMINOPHEN 1000 MG/100 ML VIAL (NON FORMULARY) IVPB ONE (15:59)
[2016-10-31] MEDS: SODIUM POLYSTYRENE SULFONATE 15 GM/60 ML BOTTLE PO ONE ×2 (16:33→18:20)
[2016-10-31] MEDS ORDERED: SODIUM POLYSTYRENE SULFONATE 15 GM/60 ML BOTTLE ONE (16:38)
[2016-10-31 19:05] LABS: THYROID STIMULATING HORMONE 1.52 uIU/ml (0.358-3.74)
[2016-10-31] MEDS: levETIRAcetam 250 MG TABLET (FP) PO SCH (22:00)
[2016-10-31] MEDS: ATORVASTATIN CA 20 MG TABLET (FP) PO SCH (22:00)
[2016-10-31] MEDS: NIFEdipine E.R 60 MG TABLET (UD) PO SCH (22:00)
[2016-10-31] MEDS: METOPROLOL TARTRATE 50 MG TABLET (FP) PO SCH (22:00)
[2016-11-01] MEDS: levETIRAcetam 250 MG TABLET (FP) PO SCH ×3 (06:54→21:22)
[2016-11-01] MEDS: ATORVASTATIN CA 20 MG TABLET (FP) PO SCH ×2 (06:54→21:22)
[2016-11-01] MEDS: METOPROLOL TARTRATE 50 MG TABLET (FP) PO SCH ×3 (06:55→21:22)
[2016-11-01] MEDS: INSULIN SLIDING SCALE (NOVOLOG) 1 VIAL SQ SCH ×2 (06:55→16:40)
[2016-11-01 08:08] LABS: MCH 29.2 pg (25.7-33.7); MCHC 31.8 g/dl (32.0-36.0); MEAN CELL VOLUME 91.9 fl (80-96); MEAN PLT VOLUME 8.1 fl (7.5-11.1); PLATELET COUNT 196 K/MM3 (134-434); RDW 17.4 % (11.6-15.6); WHITE BLOOD COUNT 6.9 K/mm3 (4.0-10.0)
[2016-11-01 08:34] LABS: ALBUMIN 3.4 g/dl (3.4-5.0); ALK PHOS 61 U/L (45-117); ANION GAP 12 (8-16); CALCIUM 7.2 mg/dL (8.5-10.1); CO2 22 mmol/L (21-32); GLUCOSE,RANDOM 117 mg/dL (74-106); PHOSPHOROUS 8.2 mg/dL (2.5-4.9); SGOT/AST 14 U/L (15-37); SGPT/ALT 19 U/L (12-78); TOT PROT 7.8 g/dl (6.4-8.2)
[2016-11-01 08:40] LABS: BILIRUBIN,TOTAL 0.7 mg/dL (0.2-1.0)
[2016-11-01 08:59] LABS: CREATININE 9.9 mg/dL (0.55-1.02)
--- NOTE | 2016-11-01 10:39 | CON.NEURO ---
Consult Consult Specialty:: Neurology Referred by:: Dr. Lutz Reason for Consultation:: Transient Neurologic Deficit - History of Present Illness Chief Complaint: Patient offers no complaint, as per family, transient sensory deficit and altered mentation History of Present Illness: THe patient is a 66 year old female, with a significant past medical history of HTN, CAD, DM, CVA in 2016 with no residual weakness, ESRD, on HD, s/p renal transplant and subsequent rejection, who presents to the emergency department with right sided numbness, headache, the day prior to admission at 12:00pm that resolved. The patient currently is not aware why she is here, but reportedly also related having the onset of nausea/vomiting prior morning. The patients family member notes having the patient had been lethargic and more fatigued yesterday and just not herself. As per prior attending note: "The patient reports having bilateral UE numbness/ tingling accompanied by a left sided headache. She endorses right leg numbness and tingling upon ED arrival. She denies recent fevers, chills, or dizziness. She denies recent diarrhea or constipation. She denies recent dysuria, frequency, urgency or hematuria. She denies recent chest pain, back pain, neck pain, abdominlal pain. shortness of breath.She denies any vision changes, dizziness, denes any headache currently." She is unable to tell me much, and when I asked her about her prior stroke symptoms, she just said, "you know the typical, it just passed by" Although not noted in the chart, the patient is on levetiracetam, suggesting a history of prior seizures. I spoke with the patient's daughter who states that the patient had episodes of visual hallucinations during a prior hospitalization and a neurologist put her on that drug at the time for that reason. 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: Yes: CVA, Dementia, TIA Cardio/Vascular: Yes: HTN, Hyperlipdemia Gastrointestinal: Yes: Other Renal/: Yes: Renal Failure (on HD ()), Hemodialysis, Other (s/p DDRT 2006) Endocrine: Yes: Diabetes Mellitus - Past Surgical History Past Surgical History: Yes: Appendectomy, , Hysterectomy, Kidney Transplant (2006 [facility]) - Alcohol/Substance Use Hx Alcohol Use: No - Smoking History Smoking history: Never smoked Have you smoked in the past 12 months: No Aproximately how many cigarettes per day: 0 - Social History Usual Living Arrangement: With Significant Other ADL: Independent History of Recent Travel: No (traveled to [place] in August 2013) Home Medications - Allergies Allergies/Adverse Reactions: Allergies Allergy/AdvReac Type Severity Reaction Status Date / Time codeine Allergy Verified 10/31/16 10:47 promethazine HCl Allergy Verified 10/31/16 10:47 [From Phenergan] - Home Medications Home Medications: Ambulatory Orders Atorvastatin Ca [Lipitor] 20 mg PO HS 11/12/15 Insulin Aspart [Novolog Flexpen] 0 unit SQ DAILY PRN 11/12/15 Pantoprazole Sodium [Protonix] 20 mg PO DAILY 11/12/15 Levetiracetam [Keppra -] 250 mg PO BID 30 Days 11/16/15 Aspirin [ASA -] 81 mg PO DAILY #30 tab.chew 11/17/15 Clopidogrel Bisulfate [Plavix -] 75 mg PO DAILY tablet 11/17/15 Metoprolol Tartrate [Lopressor -] 50 mg PO BID #60 tablet 11/17/15 Calcium Acetate [Phoslo -] 667 mg PO TIDCM 12/01/15 Insulin Degludec [Tresiba Flextouch U-100] 10 unit SQ ACBK 12/01/15 Nifedipine [Nifedipine ER] 60 mg PO HS 12/01/15 Family Disease History - Family Disease History Family Disease History: Diabetes: Mother, Brother, Sister Physical Exam-Neuro Vital Signs: Vital Signs Temperature 98.8 F 11/01/16 06:40 Pulse Rate 78 11/01/16 09:15 Respiratory Rate 18 11/01/16 09:15 Blood Pressure 141/75 11/01/16 09:15 O2 Sat by Pulse Oximetry (%) 95 10/31/16 22:00 Labs: CBC, BMP 11/01/16 06:45 11/01/16 06:45 INR, PTT INR 1.01 (0.82-1.09) 10/31/16 11:27 - Neuro Exam Level Of Consciousness: Yes: Alert, Oriented to Person, Oriented to Place (she doens't know the date, and doesn't bother to gues) Speech: WNL Cranial Nerves II-XII Intact: Yes DTR's: 0 Left Achilles, 0 Right Achilles, 1+ Left Bicep, 1+ Right Bicep, 1+ Left Tricep, 1+ Right Tricep, 1+ Left Brachioradialis, 1+ Right Brachioradialis Babinski: Absent Response to light touch: Normal (no extinction to double simultaneous stimulation) Motor Strength: 5/5: Left Arm, Right Arm, Left Leg, Right Leg Gait: Deferred Imaging - Results Cat Scan: Report Reviewed, Image Reviewed (Old left UNHAIRING INSPECTOR infarction) Problem List - Problems (1) Mateus-neglect of left side Assessment/Plan: I am not finding this on my exam. Much of the reported deficits appear to be transient. The patient may have had a seizure or transient metabolic derangement that aggravated her old deficits. At this point, I am struck by her cognitive deficits, which I assume are baseline, but as I've not met her before, I cannot be certain. Her daughter will grudgingly acknowedge that she is not quite as sharp as she used to be but didn't readily admit to memory deficits. I would recommend observation, ruling out metabolic abnormalities, and getting an EEG. I'll leave the dose of Keppra as is for now. Code(s): R41.4 - NEUROLOGIC NEGLECT SYNDROME
[2016-11-01] MEDS: CALCIUM ACETATE 667 MG CAPSULE (FP) PO SCH ×3 (10:43→16:40)
--- NOTE | 2016-11-01 11:47 | CON.NEP ---
Consult Consult Specialty:: Nephrology (Ziyad/Gilles) Referred by:: Dr. Saenz Reason for Consultation:: ESRD on HD - History of Present Illness Chief Complaint: Unilateral upper extremity weakness History of Present Illness: This is a 66 year old woman with PMhx of ESRD on HD, Hx of Renal transplant s/p chronic rejection, Hypertension, DM who presented with compliants of unilateral arm weakness and found to have possible unilateral neglect in the ED admitted for r/o CVA. Pt last had dialysis on Monday prior to this AM in the hospital. Now reports symptoms have resolved. 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 Cardio/Vascular: Yes: HTN, Hyperlipdemia Gastrointestinal: Yes: Other Renal/: Yes: Renal Failure (on HD ()), Hemodialysis, Other (s/p DDRT 2006) Endocrine: Yes: Diabetes Mellitus - Past Surgical History Past Surgical History: Yes: Appendectomy, , Hysterectomy, Kidney Transplant (2006 [facility]) - Alcohol/Substance Use Hx Alcohol Use: No - Smoking History Smoking history: Never smoked Have you smoked in the past 12 months: No Aproximately how many cigarettes per day: 0 - Social History Usual Living Arrangement: With Significant Other ADL: Independent History of Recent Travel: No (traveled to [place] in August 2013) Home Medications - Allergies Allergies/Adverse Reactions: Allergies Allergy/AdvReac Type Severity Reaction Status Date / Time codeine Allergy Verified 10/31/16 10:47 promethazine HCl Allergy Verified 10/31/16 10:47 [From Phenergan] - Home Medications Home Medications: Ambulatory Orders Atorvastatin Ca [Lipitor] 20 mg PO HS 11/12/15 Insulin Aspart [Novolog Flexpen] 0 unit SQ DAILY PRN 11/12/15 Pantoprazole Sodium [Protonix] 20 mg PO DAILY 11/12/15 Levetiracetam [Keppra -] 250 mg PO BID 30 Days 11/16/15 Aspirin [ASA -] 81 mg PO DAILY #30 tab.chew 11/17/15 Clopidogrel Bisulfate [Plavix -] 75 mg PO DAILY tablet 11/17/15 Metoprolol Tartrate [Lopressor -] 50 mg PO BID #60 tablet 11/17/15 Calcium Acetate [Phoslo -] 667 mg PO TIDCM 12/01/15 Insulin Degludec [Tresiba Flextouch U-100] 10 unit SQ ACBK 12/01/15 Nifedipine [Nifedipine ER] 60 mg PO HS 12/01/15 Family Disease History - Family Disease History Family Disease History: Diabetes: Mother, Brother, Sister Review of Systems - Review of Systems Constitutional: reports: No Symptoms Eyes: reports: No Symptoms HENT: reports: No Symptoms Neck: reports: No Symptoms Cardiovascular: reports: No Symptoms Respiratory: reports: No Symptoms Gastrointestinal: reports: No Symptoms Genitourinary: reports: No Symptoms Musculoskeletal: reports: No Symptoms Neurological: reports: Weakness Nephrology Consult - Height Height: 5 ft 4 in - Weight Weight: 154 lb - BMI Body Mass Index (BMI): 26.4 - Lab Results CBC,BMP: CBC, BMP 11/01/16 06:45 11/01/16 06:45 Anion Gap: Anion Gap Anion Gap 12 (8-16) 11/01/16 06:45 - Imaging Chest X-ray: Report Reviewed Cat Scan: Report Reviewed - Physical Examination Vital Signs: Vital Signs Temperature 98.8 F 11/01/16 06:40 Pulse Rate 86 11/01/16 10:20 Respiratory Rate 18 11/01/16 10:20 Blood Pressure 130/78 11/01/16 10:20 O2 Sat by Pulse Oximetry (%) 95 10/31/16 22:00 Constitutional: Yes: Well Nourished, No Distress Eyes: Yes: Conjunctiva Clear HENT: Yes: Atraumatic Neck: Yes: Supple Cardiovascular: Yes: Regular Rate and Rhythm, S1, S2. No: JVD, Rub Respiratory: Yes: Regular, CTA Bilaterally Gastrointestinal: Yes: Normal Bowel Sounds, Soft Renal/: Yes: Anuria. No: Bladder Distention Access for Hemodialysis: AV Fistula Musculoskeletal: No: Back Pain Extremities: No: Cold, Cool, Cyanosis Edema: No Peripheral Pulses WNL: No Neurological: Yes: Alert, Oriented, Cran Nerves II-XII Intact. No: Facial Droop , Weakness Problem List - Problems (1) ESRD (end stage renal disease) on dialysis Code(s): N18.6 - END STAGE RENAL DISEASE Z99.2 - DEPENDENCE ON RENAL DIALYSIS (2) HLD (hyperlipidemia) Code(s): E78.5 - HYPERLIPIDEMIA, UNSPECIFIED (3) Mateus-neglect of left side Code(s): R41.4 - NEUROLOGIC NEGLECT SYNDROME (4) Acute hyperkalemia Code(s): E87.5 - HYPERKALEMIA (5) Cerebrovascular accident (CVA) Code(s): I63.9 - CEREBRAL INFARCTION, UNSPECIFIED Qualifiers: CVA mechanism: unspecified Qualified Code(s): I63.9 - Cerebral infarction, unspecified (6) Diabetes mellitus Code(s): E11.9 - TYPE 2 DIABETES MELLITUS WITHOUT COMPLICATIONS Qualifiers: (7) Hyperkalemia Code(s): E87.5 - HYPERKALEMIA Assessment/Plan 66 year old woman with PMhx of ESRD on HD, Hx of Renal transplant s/p chronic rejection, Hypertension, DM who presented with complaints of unilateral arm weakness and found to have possible unilateral neglect in the ED admitted for r/ o CVA. #ESRD on HD with hyperkalemia s/p dialysis this am with 2k bath that the patient tolerated well. Continue intermittent HD Renal Diet Not on JOSSIE/ARB because of history of hyperkalemia #Weakness r/o CVA Neurology consult noted f/u EEG continue Keppra #Hypertension Continue Nifedipine, Metoprolol Goal BP < 140/90 #CKD related Anemia Hgb is at goal no MARITZA at this time Thank you Nicolas Campoverde DO
--- NOTE | 2016-11-01 12:27 | CONSULT ---
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 Cardiovascular: Yes: HTN, Hyperlipdemia Gastrointestinal: Yes: Other Renal/: Yes: Renal Failure (on HD ()), Hemodialysis, Other (s/p DDRT 2006) Heme/Onc: Yes: Anemia Endocrine: Yes: Diabetes Mellitus - Past Surgical History Past Surgical History: Yes: Appendectomy, , Hysterectomy, Kidney Transplant (2006 [facility]) - Smoking History Smoking history: Never smoked Have you smoked in the past 12 months: No Aproximately how many cigarettes per day: 0 - Alcohol/Substance Use Hx Alcohol Use: No - Social History ADL: Independent History of Recent Travel: No (traveled to [place] in August 2013) History - Admission Reason For Visit: ROXANNE-NEGLECT OF LEFT SIDE, ESRF ON DIALYSIS - Diagnostics X-ray: Report Reviewed CT Scan: Report Reviewed - General Mental Status: Alert and Oriented ([facility]), Awake and Alert, Able to Follow Commands Attention: Intact Ability to Follow Directions: Excellent Head/Neck Control: WFL - Hearing Hearing: Normal Speech Evaluation - Communication Primary Language: [place] Communication: Yes: Within Normal Limits Oral Expression Ability: Yes: No Impairment - Speech Production Able to Make Needs Known: Yes: WNL Intelligibility: Yes: WNL - Speech Characteristics Voice Loudness: Normal Voice Pitch: Yes: Normal Voice Phonatory-based Quality: Yes: Normal Speech Pattern: Normal Speech Clarity: < 100% Nasal Resonance: Normal Articulation: Yes: Precise Rate of Speech: Intact - Language/Auditory Comprehension Follows: Yes: 1 Stage Simple Commands Observation: Able to respond to yes/no queries: Yes, Yes/No Confusion: No, Comprehends Conversational Speech: Yes - Language/Verbal Expression Able to Respond to Simple Queries: Yes: WNL Able to Communicate Wants and Needs: Yes: WNL Functional Communication Status: Yes: WNL - Swallow Evaluation/Bedside Assessment Current Nutritional Intake: Regular, Thin Liquids Oral Secretions: Yes: WFL Dentition: Yes: Edentulous Facial Symmetry at Rest: Symmetrical Facial Symmetry on Retraction: Symmetrical Facial Movement: Controlled Sensation: Normal Against Resistance Opening: Normal Against Resistance Closing: Normal Pucker Lips: Normal Smile: Normal Lingual Movement: Normal, Symmetric Lingual Speed of Movement: Normal Lingual Movement Strgth Against Opposition: Normal Lingual Movement Characteristics: Normal Velopharyngeal Movement: Normal Laryngeal Elevation: WFL Laryngeal Movement: Able to Palpate Rate of Intake: WFL Bolus Size: WFL Labial Seal: WFL Chewing: WFL (edentulous but functional) A-P Transit: WFL Pocketing: None Timing of Swallow: WFL Coughing/Throat Clear: No Change in Voice: No Recommendations - Speech Evaluation, Impression/Plan Impression: sp production,language, swallowing WNL. Grossly oriented. - Dysphagia Impressions/Plan Swallowing Skills: WFL Dysphagia Impressions: No Impairment *Silent aspiration: cannot be R/O at bedside Recommendations: Modified Barium Swallow (if congestion, cough, signs of dysphagia noted) - Recommendations Diet Consistency: Regular (soft) Medication Administration: Whole with water Liquids: Thin Liquids
[2016-11-01] MEDS: PANTOPRAZOLE 20 MG TABLET (FP) PO SCH (12:32)
[2016-11-01] MEDS: ASPIRIN 81 MG CHEWABLE TABLETS PO SCH (12:32)
[2016-11-01] MEDS: CLOPIDOGREL BISULFATE 75 MG TABLET (FP) PO SCH (12:32)
[2016-11-01] MEDS ORDERED: INSULIN (NOVOLOG) ASPART 100 UNITS/ML 10ML VIAL ONE (16:39)
--- NOTE | 2016-11-01 18:03 | CONSULT ---
Consult Consult Specialty:: Endocrinology Referred by:: Dr Lutz Reason for Consultation:: Hyperglycemia - History of Present Illness Chief Complaint: AMS History of Present Illness: This is a 66 year old female, with history of HTN, CAD, DM for more than 15 years, on Insulin for 'many" years, s/p amputation of left 3rd toe many years ago, CVA in 2016 with no residual weakness, ESRD, on HD, s/p rejection of renal transplant who presented to the emergency department with right sided numbness, headache, The patients family member notes having the patient has been lethargic and more fatigued yesterday and just not herself. Pt currently awake alert, denies any complaints. Pt referred for management of DM. FS at home 120 to 190. FS up to 60 one to two times per month. No visual symptoms. Saw Ophthalmology <one year ago. No h/o laser treatment or injections to eye. Pt not sure if the renal failure is related to her diabetes. Denies parasthesia of feet. Takes Tresiba 10 units daily in morning and Novolog 2 units TID with meals. Family h/o DM in mother. 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 Cardio/Vascular: Yes: HTN, Hyperlipdemia Gastrointestinal: Yes: Other Renal/: Yes: Renal Failure (on HD (TTS)), Hemodialysis, Other (s/p DDRT 2006) Endocrine: Yes: Diabetes Mellitus - Past Surgical History Past Surgical History: Yes: Appendectomy, , Hysterectomy, Kidney Transplant (2006 [facility]) - Alcohol/Substance Use Hx Alcohol Use: No - Smoking History Smoking history: Never smoked Have you smoked in the past 12 months: No Aproximately how many cigarettes per day: 0 - Social History Usual Living Arrangement: With Significant Other ADL: Independent History of Recent Travel: No (traveled to [place] in August 2013) Home Medications - Allergies Allergies/Adverse Reactions: Allergies Allergy/AdvReac Type Severity Reaction Status Date / Time codeine Allergy Verified 10/31/16 10:47 promethazine HCl Allergy Verified 10/31/16 10:47 [From Phenergan] - Home Medications Home Medications: Ambulatory Orders Atorvastatin Ca [Lipitor] 20 mg PO HS 11/12/15 Insulin Aspart [Novolog Flexpen] 0 unit SQ DAILY PRN 11/12/15 Pantoprazole Sodium [Protonix] 20 mg PO DAILY 11/12/15 Levetiracetam [Keppra -] 250 mg PO BID 30 Days 11/16/15 Aspirin [ASA -] 81 mg PO DAILY #30 tab.chew 11/17/15 Clopidogrel Bisulfate [Plavix -] 75 mg PO DAILY tablet 11/17/15 Metoprolol Tartrate [Lopressor -] 50 mg PO BID #60 tablet 11/17/15 Calcium Acetate [Phoslo -] 667 mg PO TIDCM 12/01/15 Insulin Degludec [Tresiba Flextouch U-100] 10 unit SQ ACBK 12/01/15 Nifedipine [Nifedipine ER] 60 mg PO HS 12/01/15 Family Disease History - Family Disease History Family Disease History: Diabetes: Mother, Brother, Sister Review of Systems - Review of Systems Constitutional: reports: No Symptoms Eyes: reports: No Symptoms HENT: reports: No Symptoms Neck: reports: No Symptoms Cardiovascular: reports: No Symptoms Respiratory: reports: No Symptoms Gastrointestinal: reports: No Symptoms Genitourinary: reports: No Symptoms Musculoskeletal: reports: No Symptoms Integumentary: reports: No Symptoms Neurological: reports: Headache Endocrine: reports: No Symptoms Physical Exam Vital Signs: Vital Signs Temperature 98.1 F 11/01/16 15:50 Pulse Rate 86 11/01/16 15:50 Respiratory Rate 18 11/01/16 15:50 Blood Pressure 140/55 11/01/16 15:50 O2 Sat by Pulse Oximetry (%) 98 11/01/16 10:00 Constitutional: Yes: No Distress, Calm Eyes: Yes: Conjunctiva Clear, EOM Intact HENT: Yes: Atraumatic, Normocephalic Neck: Yes: Supple, Trachea Midline Cardiovascular: Yes: Regular Rate and Rhythm Respiratory: Yes: Regular, CTA Bilaterally Gastrointestinal: Yes: Normal Bowel Sounds, Soft Musculoskeletal: Yes: WNL Extremities: Yes: Other (s/p amputation of left 3rd toe) Edema: No Neurological: Yes: Alert, Oriented Labs: CBC, BMP 11/01/16 06:45 11/01/16 06:45 Assessment/Plan AP: T2DM: ?TIA H/O CVA HTN S/P amputation Left 3rd toe Nutrition consult HBA1c start Levemir 8 units daily in the morning Novolog SS coverage Will f/u
[2016-11-01] MEDS: NIFEdipine E.R 60 MG TABLET (UD) PO SCH (21:22)
[2016-11-02] MEDS: INSULIN SLIDING SCALE (NOVOLOG) 1 VIAL SQ SCH ×3 (06:22→17:02)
[2016-11-02] MEDS: CALCIUM ACETATE 667 MG CAPSULE (FP) PO SCH ×3 (08:13→17:01)
[2016-11-02 08:51] LABS: ANION GAP 10 (8-16); CALCIUM 8.4 mg/dL (8.5-10.1); CO2 30 mmol/L (21-32); CREATININE 6.6 mg/dL (0.55-1.02); GLUCOSE,RANDOM 111 mg/dL (74-106); MAGNESIUM 2.3 mg/dL (1.8-2.4)
[2016-11-02] MEDS: PANTOPRAZOLE 20 MG TABLET (FP) PO SCH (09:31)
[2016-11-02] MEDS: INSULIN DETEMIR 100 UNITS/ML MDV SQ SCH (09:31)
[2016-11-02] MEDS: CLOPIDOGREL BISULFATE 75 MG TABLET (FP) PO SCH (09:31)
[2016-11-02] MEDS: levETIRAcetam 250 MG TABLET (FP) PO SCH ×2 (09:31→23:25)
[2016-11-02] MEDS: ASPIRIN 81 MG CHEWABLE TABLETS PO SCH (09:31)
[2016-11-02] MEDS: METOPROLOL TARTRATE 50 MG TABLET (FP) PO SCH ×2 (09:31→23:26)
--- NOTE | 2016-11-02 09:38 | PN ---
Progress Note (short form) - Note Progress Note: Denies any compaints going for EEG Vital Signs Period Temp Pulse Resp BP Sys/Travis Pulse Ox Last 24 Hr 97.6 F-98.6 F 63-86 18-20 123-147/55-78 97-98 PE: Awake alert Neck: Supple HEENT: EOMI Lungs: CTA CVS: S1S2 Abd: Benign Ext: No edema CMP Sodium 136 mmol/L (136-145) 11/02/16 06:00 Potassium 5.1 mmol/L (3.5-5.1) 11/02/16 06:00 Chloride 96 mmol/L (98-107) L 11/02/16 06:00 Carbon Dioxide 30 mmol/L (21-32) D 11/02/16 06:00 Anion Gap 10 (8-16) 11/02/16 06:00 BUN 27 mg/dL (7-18) H D 11/02/16 06:00 Creatinine 6.6 mg/dL (0.55-1.02) H D 11/02/16 06:00 Creat Clearance w eGFR 3.96 (>60) 11/01/16 06:45 POC Glucometer 156 UNITS (()) 11/02/16 16:31 Random Glucose 111 mg/dL (74-106) H 11/02/16 06:00 Hemoglobin A1c % 8.0 % (4.8-6.0) H D 11/02/16 06:00 Calcium 8.4 mg/dL (8.5-10.1) L 11/02/16 06:00 Phosphorus 8.2 mg/dL (2.5-4.9) H D 11/01/16 06:45 Magnesium 2.3 mg/dL (1.8-2.4) D 11/02/16 06:00 Total Bilirubin 0.7 mg/dL (0.2-1.0) D 11/01/16 06:45 AST 14 U/L (15-37) L 11/01/16 06:45 ALT 19 U/L (12-78) D 11/01/16 06:45 Alkaline Phosphatase 61 U/L (45-117) 11/01/16 06:45 Creatine Kinase 70 IU/L (26-192) 10/31/16 11:27 Troponin I < 0.02 ng/ml (0.00-0.05) 10/31/16 11:27 Total Protein 7.8 g/dl (6.4-8.2) 11/01/16 06:45 Albumin 3.4 g/dl (3.4-5.0) 11/01/16 06:45 TSH 1.52 uIU/ml (0.358-3.74) D 10/31/16 11:27 Current Medications Generic Name Dose Route Start Last Admin Trade Name Lars PRN Reason Stop Dose Admin Aspirin 81 mg 11/01/16 10:00 11/02/16 09:31 Asa - PO 81 mg DAILY NAJMA Administration Atorvastatin Calcium 20 mg 10/31/16 22:00 11/01/16 21:22 Lipitor - PO 20 mg HS NAJMA Administration Calcium Acetate 667 mg 11/01/16 08:00 11/02/16 17:01 Phoslo - PO 667 mg TIDCM NAJMA Administration Clopidogrel Bisulfate 75 mg 11/01/16 10:00 11/02/16 09:31 Plavix - PO 75 mg DAILY NAJMA Administration Insulin Aspart 1 vial 11/02/16 07:00 11/02/16 17:02 Novolog Vial Sliding Scale - SQ 2 units TIDAC NAJMA Administration Protocol Insulin Detemir 8 units 11/02/16 10:00 11/02/16 09:31 Levemir Vial SQ 8 units DAILY NAJMA Administration Levetiracetam 250 mg 10/31/16 22:00 11/02/16 09:31 Keppra - PO 250 mg BID NAJMA Administration Metoprolol Tartrate 50 mg 10/31/16 22:00 11/02/16 09:31 Lopressor - PO 50 mg BID NAJMA Administration Nifedipine 60 mg 10/31/16 22:00 11/01/16 21:22 Procardia Xl - PO 60 mg HS NAJMA Administration Pantoprazole Sodium 20 mg 11/01/16 10:00 11/02/16 09:31 Protonix - PO 20 mg DAILY NAJMA Administration AP: T2DM:A1c 8.0 ?TIA H/O CVA HTN S/P amputation Left 3rd toe Nutrition consult HBA1c Levemir 8 units daily in the morning Novolog SS coverage Will f/u
--- NOTE | 2016-11-02 09:57 | PN ---
Progress Note (short form) - Note Progress Note: 66 year old female, with a significant past medical history of HTN, CAD, DM, CVA in 2016 with no residual weakness, ESRD, on HD, s/p renal transplant and subsequent rejection, who present with right sided numbness, headache, the day prior to admission at 12:00pm that resolved. SX also associated with numbness of her limbs and DAVILA. Although not noted in the chart, the patient is on levetiracetam, suggesting a history of prior seizures. CT HD left parietal cortical infarct. 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 Cardio/Vascular: Yes: HTN, Hyperlipdemia Gastrointestinal: Yes: Other Renal/: Yes: Renal Failure (on HD (TTS)), Hemodialysis, Other (s/p DDRT 2006) Endocrine: Yes: Diabetes Mellitus - Past Surgical History Past Surgical History: Yes: Appendectomy, , Hysterectomy, Kidney Transplant (2006 [facility]) - Alcohol/Substance Use Hx Alcohol Use: No - Smoking History Smoking history: Never smoked Have you smoked in the past 12 months: No Aproximately how many cigarettes per day: 0 - Social History Usual Living Arrangement: With Significant Other ADL: Independent History of Recent Travel: No (traveled to [place] in August 2013) Home Medications - Allergies Allergies/Adverse Reactions: Allergies Allergy/AdvReac Type Severity Reaction Status Date / Time codeine Allergy Verified 10/31/16 10:47 promethazine HCl Allergy Verified 10/31/16 10:47 [From Phenergan] - Home Medications Home Medications: Ambulatory Orders Atorvastatin Ca [Lipitor] 20 mg PO HS 11/12/15 Insulin Aspart [Novolog Flexpen] 0 unit SQ DAILY PRN 11/12/15 Pantoprazole Sodium [Protonix] 20 mg PO DAILY 11/12/15 Levetiracetam [Keppra -] 250 mg PO BID 30 Days 11/16/15 Aspirin [ASA -] 81 mg PO DAILY #30 tab.chew 11/17/15 Clopidogrel Bisulfate [Plavix -] 75 mg PO DAILY tablet 11/17/15 Metoprolol Tartrate [Lopressor -] 50 mg PO BID #60 tablet 11/17/15 Calcium Acetate [Phoslo -] 667 mg PO TIDCM 12/01/15 Insulin Degludec [Tresiba Flextouch U-100] 10 unit SQ ACBK 12/01/15 Nifedipine [Nifedipine ER] 60 mg PO HS 12/01/15 Family Disease History - Family Disease History Family Disease History: Diabetes: Mother, Brother, Sister Physical Exam-Neuro Vital Signs: Vital Signs Temperature 98.2 F 11/02/16 06:00 Pulse Rate 66 11/02/16 06:00 Respiratory Rate 20 11/02/16 06:00 Blood Pressure 129/78 11/02/16 06:00 O2 Sat by Pulse Oximetry (%) 97 11/01/16 20:15 Labs: 11/01/16 06:45 11/02/16 06:00 - Neuro Exam Level Of Consciousness: Yes: Alert, Oriented to Person, Oriented to Place (she doens't know the date, and doesn't bother to gues) Speech: WNL Cranial Nerves II-XII Intact: Yes DTR's: 0 Left Achilles, 0 Right Achilles, 1+ Left Bicep, 1+ Right Bicep, 1+ Left Tricep, 1+ Right Tricep, 1+ Left Brachioradialis, 1+ Right Brachioradialis Babinski: Absent Response to light touch: Normal (no extinction to double simultaneous stimulation) Motor Strength: 5/5: Left Arm, Right Arm, Left Leg, Right Leg Gait: Deferred Imaging - Results Cat Scan: Report Reviewed, Image Reviewed (Old left GERIATRIC ASSISTANT infarction) Problem List - Problems (1) Mateus-neglect of left side Assessment/Plan: ? neglect sx-- though exam looks nonfocal may have mild dementia --vascular, old left sided stroke cont ASA, statin and DM control doubt she ahd seziure, maintain keppra for now, FU EEg as oupt neuro cleared Dr Palmer
--- NOTE | 2016-11-02 12:34 | PN ---
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 Tolerating well. verbal and appropriate.
--- NOTE | 2016-11-02 13:54 | PN ---
Progress Note (short form) - Note Progress Note: Renal Follow up for ESRD on HD Pt seen and examined at the bedside no acute complaints denies any weakness or sensory deficits s/p dialysis yesterday Vital Signs Temperature 98.2 F 11/02/16 06:00 Pulse Rate 66 11/02/16 06:00 Respiratory Rate 20 11/02/16 06:00 Blood Pressure 129/78 11/02/16 06:00 O2 Sat by Pulse Oximetry (%) 97 11/02/16 09:00 Intake & Output 10/30/16 10/31/16 11/01/16 11/02/16 23:59 23:59 23:59 23:59 Intake Total 700 Balance 700 Weight 154 lb 154 lb Gen: NAD CVS: RRR, No M/R Lungs: CTA, no rales or wheeze Abd: soft NT/ND Ext: trace to 1+ edema CBC, BMP 11/01/16 06:45 11/02/16 06:00 Current Medications Aspirin (Asa -) 81 mg PO DAILY [facility] Last Admin: 11/02/16 09:31 Dose: 81 mg Atorvastatin Calcium (Lipitor -) 20 mg PO HS [facility] Last Admin: 11/01/16 21:22 Dose: 20 mg Calcium Acetate (Phoslo -) 667 mg PO TIDCM [facility] Last Admin: 11/02/16 12:27 Dose: 667 mg Clopidogrel Bisulfate (Plavix -) 75 mg PO DAILY [facility] Last Admin: 11/02/16 09:31 Dose: 75 mg Insulin Aspart (Novolog Vial Sliding Scale -) 1 vial SQ TIDAC [facility] PRN Reason: Protocol Last Admin: 11/02/16 12:06 Dose: Not Given Insulin Detemir (Levemir Vial) 8 units SQ DAILY [facility] Last Admin: 11/02/16 09:31 Dose: 8 units Levetiracetam (Keppra -) 250 mg PO BID [facility] Last Admin: 11/02/16 09:31 Dose: 250 mg Metoprolol Tartrate (Lopressor -) 50 mg PO BID [facility] Last Admin: 11/02/16 09:31 Dose: 50 mg Nifedipine (Procardia Xl -) 60 mg PO HS [facility] Last Admin: 11/01/16 21:22 Dose: 60 mg Pantoprazole Sodium (Protonix -) 20 mg PO DAILY [facility] Last Admin: 08/16/17 09:31 Dose: 20 mg A/P 66 year old woman with PMhx of ESRD on HD, Hx of Renal transplant s/p chronic rejection, Hypertension, DM who presented with complaints of unilateral arm weakness and found to have possible unilateral neglect in the ED admitted for r/ o CVA. #ESRD on HD with hyperkalemia no acute indication for dialysis today next treatment in the AM, will UF as tolerated Renal diet #Weakness r/o CVA work up as per neurology #Hypertension Continue Nifedipine, Metoprolol Goal BP < 140/90 #CKD related Anemia Hgb is at goal no MARITZA at this time Thank you Nicolas Campoverde DO Problem List - Problems (1) ESRD (end stage renal disease) on dialysis Code(s): N18.6 - END STAGE RENAL DISEASE Z99.2 - DEPENDENCE ON RENAL DIALYSIS (2) HLD (hyperlipidemia) Code(s): E78.5 - HYPERLIPIDEMIA, UNSPECIFIED (3) Mateus-neglect of left side Code(s): R41.4 - NEUROLOGIC NEGLECT SYNDROME (4) Acute hyperkalemia Code(s): E87.5 - HYPERKALEMIA (5) Cerebrovascular accident (CVA) Code(s): I63.9 - CEREBRAL INFARCTION, UNSPECIFIED Qualifiers: CVA mechanism: unspecified Qualified Code(s): I63.9 - Cerebral infarction, unspecified (6) Diabetes mellitus Code(s): E11.9 - TYPE 2 DIABETES MELLITUS WITHOUT COMPLICATIONS Qualifiers: (7) Hyperkalemia Code(s): E87.5 - HYPERKALEMIA
--- NOTE | 2016-11-02 16:49 | EKG ---
Test Reason : Blood Pressure : / mmHG Vent. Rate : 076 BPM Atrial Rate : 076 BPM P-R Int : 188 ms QRS Dur : 098 ms QT Int : 438 ms P-R-T Axes : 037 015 063 degrees QTc Int : 492 ms NORMAL SINUS RHYTHM PROLONGED QT ABNORMAL ECG WHEN COMPARED WITH ECG OF 11-OCT-2016 09:02, NO SIGNIFICANT CHANGE WAS FOUND Confirmed by PASTORA SHETH MD ([id number]) on 11/02/2016 4:48:29 PM Referred By: Confirmed By:PASTORA SHETH MD
[2016-11-02] MEDS: ATORVASTATIN CA 20 MG TABLET (FP) PO SCH (23:25)
[2016-11-02] MEDS: NIFEdipine E.R 60 MG TABLET (UD) PO SCH (23:26)
[2016-11-03] MEDS: INSULIN SLIDING SCALE (NOVOLOG) 1 VIAL SQ SCH ×2 (06:10→12:20)
[2016-11-03] MEDS: CALCIUM ACETATE 667 MG CAPSULE (FP) PO SCH ×2 (08:00→12:16)
[2016-11-03 09:04] LABS: MCH 29.9 pg (25.7-33.7); MCHC 32.7 g/dl (32.0-36.0); MEAN CELL VOLUME 91.4 fl (80-96); MEAN PLT VOLUME 8.3 fl (7.5-11.1); PLATELET COUNT 192 K/MM3 (134-434); RDW 17.1 % (11.6-15.6); WHITE BLOOD COUNT 7.1 K/mm3 (4.0-10.0)
[2016-11-03 09:09] LABS: ANION GAP 13 (8-16); CALCIUM 7.5 mg/dL (8.5-10.1); CO2 27 mmol/L (21-32); GLUCOSE,RANDOM 147 mg/dL (74-106)
[2016-11-03 09:22] LABS: CREATININE 8.2 mg/dL (0.55-1.02)
[2016-11-03] MEDS: INSULIN DETEMIR 100 UNITS/ML MDV SQ SCH (12:16)
[2016-11-03] MEDS: CLOPIDOGREL BISULFATE 75 MG TABLET (FP) PO SCH (12:16)
[2016-11-03] MEDS: PANTOPRAZOLE 20 MG TABLET (FP) PO SCH (12:16)
[2016-11-03] MEDS: ASPIRIN 81 MG CHEWABLE TABLETS PO SCH (12:16)
[2016-11-03] MEDS: levETIRAcetam 250 MG TABLET (FP) PO SCH (12:16)
[2016-11-03] MEDS: METOPROLOL TARTRATE 50 MG TABLET (FP) PO SCH (12:16)
--- NOTE | 2016-11-03 12:52 | HP ---
Admitting History and Physical - Admission Chief Complaint: left sided weakness History of Present Illness: left sided weakness recurrent, every few months known vasculopath - Past Medical History CROP PEST CONTROL SPECIALIST: Yes: CVA, Dementia, TIA Cardiovascular: Yes: HTN, Hyperlipdemia Gastrointestinal: Yes: Other Renal/: Yes: Renal Failure (on HD ()), Hemodialysis, Other (s/p DDRT 2006) Heme/Onc: Yes: Anemia Endocrine: Yes: Diabetes Mellitus - Past Surgical History Past Surgical History: Yes: Appendectomy, , Hysterectomy, Kidney Transplant (2006 DDKT) - Smoking History Smoking history: Never smoked Have you smoked in the past 12 months: No Aproximately how many cigarettes per day: 0 - Alcohol/Substance Use Hx Alcohol Use: No - Social History ADL: Independent History of Recent Travel: No (traveled to [place] in August 2013) Home Medications - Allergies Allergies/Adverse Reactions: Allergies Allergy/AdvReac Type Severity Reaction Status Date / Time codeine Allergy Verified 10/31/16 10:47 promethazine HCl Allergy Verified 10/31/16 10:47 [From Phenergan] - Home Medications Home Medications: Ambulatory Orders Atorvastatin Ca [Lipitor] 20 mg PO HS 11/12/15 Insulin Aspart [Novolog Flexpen] 0 unit SQ DAILY PRN 11/12/15 Pantoprazole Sodium [Protonix] 20 mg PO DAILY 11/12/15 Levetiracetam [Keppra -] 250 mg PO BID 30 Days 11/16/15 Aspirin [ASA -] 81 mg PO DAILY #30 tab.chew 11/17/15 Clopidogrel Bisulfate [Plavix -] 75 mg PO DAILY tablet 11/17/15 Metoprolol Tartrate [Lopressor -] 50 mg PO BID #60 tablet 11/17/15 Calcium Acetate [Phoslo -] 667 mg PO TIDCM 12/01/15 Insulin Degludec [Tresiba Flextouch U-100] 10 unit SQ ACBK 12/01/15 Nifedipine [Nifedipine ER] 60 mg PO HS 12/01/15 Family Disease History - Family Disease History Family Disease History: Diabetes: Mother, Brother, Sister Physical Examination Vital Signs: Vital Signs Temperature 98.2 F 11/03/16 09:00 Pulse Rate 72 11/03/16 11:05 Respiratory Rate 16 11/03/16 11:05 Blood Pressure 125/70 11/03/16 11:05 O2 Sat by Pulse Oximetry (%) 97 11/02/16 21:00 Constitutional: Yes: Well Nourished, No Distress, Calm Eyes: Yes: WNL, Conjunctiva Clear, EOM Intact HENT: Yes: WNL, Atraumatic, Normocephalic Neck: Yes: WNL, Supple, Trachea Midline Cardiovascular: Yes: WNL, Regular Rate and Rhythm Respiratory: Yes: WNL, Regular, CTA Bilaterally Gastrointestinal: Yes: WNL, Normal Bowel Sounds Musculoskeletal: Yes: WNL Extremities: Yes: WNL Edema: No Integumentary: Yes: WNL Neurological: Yes: Loss of Sensation, Pre-Existing Deficit ...Motor Strength: WNL Psychiatric: Yes: WNL Labs: CBC, BMP 11/03/16 07:00 Assessment/Plan s/p left sided weakness s/p neuro w/u- no new cva s/p speech and swallow eval- tolerating soft reg diet and thin liquids ESRD on HD HTN Plan- d/c today
[2016-11-03 12:55] LABS: CREATININE 2.5 mg/dL (0.55-1.02)
--- NOTE | 2016-11-03 13:03 | PN ---
Progress Note (short form) - Note Progress Note: Renal Follow up for ESRD on HD Pt seen and examined at the bedside no complaints no sob, chest pain, abd pain s/p dialysis this am denies any weakness Vital Signs Temperature 98.2 F 11/03/16 09:00 Pulse Rate 72 11/03/16 11:05 Respiratory Rate 16 11/03/16 11:05 Blood Pressure 125/70 11/03/16 11:05 O2 Sat by Pulse Oximetry (%) 97 11/02/16 21:00 Intake & Output 10/31/16 11/01/16 11/02/16 11/03/16 23:59 23:59 23:59 23:59 Intake Total 700 750 Balance 700 750 Weight 154 lb 154 lb Gen: NAD CVS: RRR, No M/R Lungs: CTA, no rales or wheeze Abd: soft NT/ND Ext: trace to 1+ edema CBC, BMP 11/03/16 07:00 Current Medications Aspirin (Asa -) 81 mg PO DAILY [facility] Last Admin: 11/03/16 12:16 Dose: 81 mg Atorvastatin Calcium (Lipitor -) 20 mg PO HS [facility] Last Admin: 11/02/16 23:25 Dose: 20 mg Calcium Acetate (Phoslo -) 667 mg PO TIDCM [facility] Last Admin: 11/03/16 12:16 Dose: 667 mg Clopidogrel Bisulfate (Plavix -) 75 mg PO DAILY [facility] Last Admin: 11/03/16 12:16 Dose: 75 mg Insulin Aspart (Novolog Vial Sliding Scale -) 1 vial SQ TIDAC [facility] PRN Reason: Protocol Last Admin: 11/03/16 12:20 Dose: 6 units Insulin Detemir (Levemir Vial) 8 units SQ DAILY [facility] Last Admin: 11/03/16 12:16 Dose: 8 units Levetiracetam (Keppra -) 250 mg PO BID [facility] Last Admin: 11/03/16 12:16 Dose: 250 mg Metoprolol Tartrate (Lopressor -) 50 mg PO BID [facility] Last Admin: 11/03/16 12:16 Dose: 50 mg Nifedipine (Procardia Xl -) 60 mg PO HS [facility] Last Admin: 11/02/16 23:26 Dose: 60 mg Pantoprazole Sodium (Protonix -) 20 mg PO DAILY [facility] Last Admin: 11/03/16 12:16 Dose: 20 mg A/P 66 year old woman with PMhx of ESRD on HD, Hx of Renal transplant s/p chronic rejection, Hypertension, DM who presented with complaints of unilateral arm weakness and found to have possible unilateral neglect in the ED admitted for r/ o CVA. #ESRD on HD with hyperkalemia s/p dialysis this am w/o complication to continue HD on TTS schedule as outpatient #Weakness r/o CVA work up as per neurology as outpatient on keppra #Hypertension Continue Nifedipine, Metoprolol Goal BP < 140/90 #CKD related Anemia Hgb is at goal no MARITZA at this time Thank you Nicolas Campoverde DO Problem List - Problems (1) ESRD (end stage renal disease) on dialysis Code(s): N18.6 - END STAGE RENAL DISEASE Z99.2 - DEPENDENCE ON RENAL DIALYSIS (2) HLD (hyperlipidemia) Code(s): E78.5 - HYPERLIPIDEMIA, UNSPECIFIED (3) Mateus-neglect of left side Code(s): R41.4 - NEUROLOGIC NEGLECT SYNDROME (4) Acute hyperkalemia Code(s): E87.5 - HYPERKALEMIA (5) Cerebrovascular accident (CVA) Code(s): I63.9 - CEREBRAL INFARCTION, UNSPECIFIED Qualifiers: CVA mechanism: unspecified Qualified Code(s): I63.9 - Cerebral infarction, unspecified (6) Diabetes mellitus Code(s): E11.9 - TYPE 2 DIABETES MELLITUS WITHOUT COMPLICATIONS Qualifiers: (7) Hyperkalemia Code(s): E87.5 - HYPERKALEMIA
--- NOTE | 2016-11-03 13:11 | DS ---
Physical Examination Vital Signs: Vital Signs Temperature 98.2 F 11/03/16 09:00 Pulse Rate 72 11/03/16 11:05 Respiratory Rate 16 11/03/16 11:05 Blood Pressure 125/70 11/03/16 11:05 O2 Sat by Pulse Oximetry (%) 97 11/02/16 21:00 Constitutional: Yes: Well Nourished, No Distress, Calm Eyes: Yes: WNL, Conjunctiva Clear, EOM Intact HENT: Yes: WNL, Atraumatic, Normocephalic Neck: Yes: WNL, Supple, Trachea Midline Cardiovascular: Yes: WNL, Regular Rate and Rhythm Respiratory: Yes: WNL, Regular, CTA Bilaterally Gastrointestinal: Yes: WNL, Normal Bowel Sounds Extremities: Yes: WNL Edema: No Integumentary: Yes: WNL Neurological: Yes: WNL, Alert, Oriented ...Motor Strength: WNL Psychiatric: Yes: WNL Labs: CBC, BMP 11/03/16 07:00 Discharge Summary Reason For Visit: MATEUS-NEGLECT OF LEFT SIDE, ESRF ON DIALYSIS Current Active Problems Abnormal blood pressure (Acute) DVT prophylaxis (Acute) ESRD (end stage renal disease) on dialysis (Acute) HLD (hyperlipidemia) (Acute) Mateus-neglect of left side (Acute) Valvular heart disease (Acute) Hospital Course: pt reports left sided weakness to me in the chart she has reported right sided weakness to other examiners 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 and r mateus question of seizure she is on keppra will go for eeg as outpatient - Instructions Referrals: Leon Ramsay MD [Primary Care Provider] - - Home Medications Comprehensive Discharge Medication List: Ambulatory Orders Atorvastatin Ca [Lipitor] 20 mg PO HS 11/12/15 Insulin Aspart [Novolog Flexpen] 0 unit SQ DAILY PRN 11/12/15 Pantoprazole Sodium [Protonix] 20 mg PO DAILY 11/12/15 Levetiracetam [Keppra -] 250 mg PO BID 30 Days 11/16/15 Aspirin [ASA -] 81 mg PO DAILY #30 tab.chew 11/17/15 Clopidogrel Bisulfate [Plavix -] 75 mg PO DAILY tablet 11/17/15 Metoprolol Tartrate [Lopressor -] 50 mg PO BID #60 tablet 11/17/15 Calcium Acetate [Phoslo -] 667 mg PO TIDCM 12/01/15 Insulin Degludec [Tresiba Flextouch U-100] 10 unit SQ ACBK 12/01/15 Nifedipine [Nifedipine ER] 60 mg PO HS 12/01/15
[2016-11-03 14:21] VITALS: BP 103/54; PULSE 76; TEMP 97.5
--- NOTE | 2016-11-03 15:09 | PN ---
Progress Note (short form) - Note Progress Note: Denies any compaints BGM 300 today Vital Signs Period Temp Pulse Resp BP Sys/Travis Pulse Ox Last 24 Hr 97.5 F-98.2 F 63-82 14-20 99-174/54-96 97-97 PE: Awake alert Neck: Supple HEENT: EOMI Lungs: CTA CVS: S1S2 Abd: Benign Ext: No edema CMP Sodium 133 mmol/L (136-145) L 11/03/16 07:00 Potassium 4.8 mmol/L (3.5-5.1) 11/03/16 07:00 Chloride 93 mmol/L (98-107) L 11/03/16 07:00 Carbon Dioxide 27 mmol/L (21-32) 11/03/16 07:00 Anion Gap 13 (8-16) 11/03/16 07:00 BUN 9 mg/dL (7-18) D 11/03/16 11:17 Creatinine 2.5 mg/dL (0.55-1.02) H D 11/03/16 11:17 Creat Clearance w eGFR 3.96 (>60) 11/01/16 06:45 POC Glucometer 300 UNITS (()) 11/03/16 12:19 Random Glucose 147 mg/dL (74-106) H D 11/03/16 07:00 Hemoglobin A1c % 8.0 % (4.8-6.0) H D 11/02/16 06:00 Calcium 7.5 mg/dL (8.5-10.1) L 11/03/16 07:00 Phosphorus 7.0 mg/dL (2.5-4.9) H 11/03/16 07:00 Magnesium 2.3 mg/dL (1.8-2.4) D 11/02/16 06:00 Total Bilirubin 0.7 mg/dL (0.2-1.0) D 11/01/16 06:45 AST 14 U/L (15-37) L 11/01/16 06:45 ALT 19 U/L (12-78) D 11/01/16 06:45 Alkaline Phosphatase 61 U/L (45-117) 11/01/16 06:45 Creatine Kinase 70 IU/L (26-192) 10/31/16 11:27 Troponin I < 0.02 ng/ml (0.00-0.05) 10/31/16 11:27 Total Protein 7.8 g/dl (6.4-8.2) 11/01/16 06:45 Albumin 3.4 g/dl (3.4-5.0) 11/01/16 06:45 TSH 1.52 uIU/ml (0.358-3.74) D 10/31/16 11:27 Current Medications Generic Name Dose Route Start Last Admin Trade Name Lars PRN Reason Stop Dose Admin Aspirin 81 mg 11/01/16 10:00 11/03/16 12:16 Asa - PO 81 mg DAILY ANJMA Administration Atorvastatin Calcium 20 mg 10/31/16 22:00 11/02/16 23:25 Lipitor - PO 20 mg HS NAJMA Administration Calcium Acetate 667 mg 11/01/16 08:00 11/03/16 12:16 Phoslo - PO 667 mg TIDCM NAJMA Administration Clopidogrel Bisulfate 75 mg 11/01/16 10:00 11/03/16 12:16 Plavix - PO 75 mg DAILY NAJMA Administration Insulin Aspart 1 vial 11/02/16 07:00 11/03/16 12:20 Novolog Vial Sliding Scale - SQ 6 units TIDAC NAJMA Administration Protocol Insulin Detemir 8 units 11/02/16 10:00 11/03/16 12:16 Levemir Vial SQ 8 units DAILY NAJMA Administration Levetiracetam 250 mg 10/31/16 22:00 11/03/16 12:16 Keppra - PO 250 mg BID NAJMA Administration Metoprolol Tartrate 50 mg 10/31/16 22:00 11/03/16 12:16 Lopressor - PO 50 mg BID NAJMA Administration Nifedipine 60 mg 10/31/16 22:00 11/02/16 23:26 Procardia Xl - PO 60 mg HS NAJMA Administration Pantoprazole Sodium 20 mg 11/01/16 10:00 11/03/16 12:16 Protonix - PO 20 mg DAILY NAJMA Administration AP: T2DM:A1c 8.0 ?TIA H/O CVA HTN S/P amputation Left 3rd toe Didn't get Novolog in the morning as blood sugar was <150 HBA1c 8.0 Levemir 8 units daily in the morning Novolog SS coverage Pt has Tresiba at home. To take 8 units daily and Humalog 3 to 4 units TID with meals F/U in office in one week
== END 2016-11-03 16:29 | disposition home or self-care (01) | DRG 58 ==
LOC: JER 10:40 → JERBED 15:07 → J4W 19:03
PROVIDERS: ADMIT Family Medicine; ATTEND Family Medicine
PROC: 5A1D60Z (ICD-10-PCS; principal; 2016-11-03)
DX: R41.4 Neurologic neglect syndrome (principal); I69.351 Hemiplegia and hemiparesis following cerebral infarction affecting right dominant side; Z89.422 Acquired absence of other left toe(s); I12.0 Hypertensive chronic kidney disease with stage 5 chronic kidney disease or end stage renal disease; E11.22 Type 2 diabetes mellitus with diabetic chronic kidney disease; N18.6 End stage renal disease; Z99.2 Dependence on renal dialysis; E78.5 Hyperlipidemia, unspecified; E87.5 Hyperkalemia; D63.1 Anemia in chronic kidney disease; R53.1 Weakness; F03.90 Unspecified dementia, unspecified severity, without behavioral disturbance, psychotic disturbance, mood disturbance, and anxiety; Z94.0 Kidney transplant status; I25.10 Atherosclerotic heart disease of native coronary artery without angina pectoris; T86.11 Kidney transplant rejection; I38 Endocarditis, valve unspecified; I51.9 Heart disease, unspecified
CPT/HCPCS: 36415; 70450-TC; 71010-TC; 80048; 80053; 82565; 83036; 83735; 84100; 84443; 84484; 84520; 85025; 85027; 85610; 86850; 86900; 86901; 87040; 93005; 93010; 95816; 97116-GP; 97161-GP; 99285-25

== ENCOUNTER 2017-02-23 19:04 | Observation (INO) | payer OTHER ==
--- NOTE | 2017-02-23 19:18 | PDOC ---
Attending Attestation - HPI HPI: 02/23/17 19:22 The patient is a 66 year old female with significant past medical history of hypertension, diabetes, ESRD on HD TTS, brought in by EMS for right sided facial droop and altered mental status that began this evening. The patient completed a dialysis session today. No complaints afterward. Patient was last seen well at approximately 6 PM. Per EMS and daughter at bedside, the patient's symptoms have been waxing and waning since approximately 1 hour prior to ED arrival. No headache or blurred vision. No nausea or vomiting. No numbness or tingling. She had similar symptoms earlier this year, diagnosis at the time was TIA vs. possible seizure vs. transient metabolic derangement. - Physicial Exam PE: 02/23/17 19:25 Constitutional: Awake, alert. Oriented to self and place, but not context. Mildly confused. Head: Normocephalic. Atraumatic Eyes: PERRL. EOMI. Conjunctivae are not pale. ENT: Mucous membranes are moist and intact. Posterior pharynx without exudates or erythema. Uvula midline. Neck: Supple. Full ROM. No lymphadenopathy. Cardiovascular: Regular rate. Regular rhythm. S1, S2 regular. Distal pulses are 2+ and symmetric. Pulmonary/Chest: No evidence of respiratory distress. Clear to auscultation bilaterally No wheezing, rales or rhonchi. Abdominal: Soft and non-distended. There is no tenderness. No rebound, guarding or rigidity. No organomegaly. No palpable masses. Good bowel sounds. Back: No CVA tenderness. Musculoskeletal: No edema. No cyanosis. No clubbing. Full range of motion in all extremities. Nocalf tenderness. +LUE AV fistula. Skin: Skin is warm and dry. No petechiae. No purpura. Neurological: +Mild R facial droop. +Mild confusion. Strength is 5/5 in all four extremity. No sensory deficits. Psychiatric: Good eye contact. - Medical Decision Making 02/23/17 19:29 Documentation prepared by Adalgisa Gale, acting as medical record librarian for Karley Mcdaniel DO. 02/23/17 19:52 Code stewart activated at 21:14. Right sided facial droop improved after administration of glucose. <Adalgisa Gale - Last Filed: 02/23/17 23:35> - Resident Resident Name: Italia Fernandes - ED Attending Attestation I have performed the following: I have examined & evaluated the patient, The case was reviewed & discussed with the resident, I agree w/resident's findings & plan, Exceptions are as noted - Medical Decision Making 02/23/17 19:18 I, Dr. Karley Mcdaniel, DO, attest that this document has been prepared under my direction and personally reviewed by me in its entirety. I further attest, that it accurately reflects all work, treatment, procedures and medical decision -making performed by me. 02/23/17 19:29 a/p: 66yo female with acute onset of confusion and mild R facial droop occuring at 6:10 tonight -was with her home health aid who states the patient was "normal" at 6p and then at 610 had difficulty speaking -waxing/waning MS -CODE FENG called -Pt stat to head ct to r/o bleed vs acute cva -hx of cva in past -last tia vs seizure was in october -no anticoagulants -labs, ekg, cxr 02/23/17 19:31 bedside glucose was 65, giving glucose 02/23/17 21:57 facial droop resolved, but pt still altered ordered MRI brain, but family refusing saying the patient cannot tolerate a closed MRI, but must use an open MRI family understands need for MRI for further eval of AMS, but state even with medicaiton she cannot undergo MRI imaging. understands risks of refusing MRI 02/23/17 23:39 pt back to baseline ms. knows birthday, date, time will keep pt in tele obs pending further ams workup case discussed with dr. aguiar who accepts pt to service <Karley Mcdaniel - Last Filed: 02/23/17 23:39> Heart Score/ECG Review - ECG Intrepretation Comment:: 02/23/17 21:58 sinus at 70, nl axis, nl interval, no acute st/t wave findings <Karley Mcdaniel - Last Filed: 02/23/17 23:39> NIH Stroke Scale - Last Known Well Date/Time & Onset Date Last Known Well: 02/23/17 Time Last Known Well: 18:00 - Initial Evaluation Level of consciousness: Alert Ask patient the month and their age: Both incorrect Ask patient to open & close eyes; make fist and let go: Obeys both correctly Best gaze (horizontal eye movement): Normal Visual field testing: No visual field loss Facial paresis (Show teeth/raise eyebrows/close eyes tight): Minor paralysis ( flattened nasolabial fold, asymmetry on smiling) Motor Function: Left Arm: Normal Motor Function: Right Arm: Normal (extends arm 90 (or 45) degrees for 10 seconds without drift Motor Function: Left Leg: Normal (extends leg 30 degrees for 5 seconds without drift) Motor Function: Right Leg: Normal (extends leg 30 degrees for 5 seconds without drift) Limb Ataxia: No ataxia Sensory(Use pinprick test arms,legs,trunk,face/side to side): Normal Best language (Describe picture, name items, read sentences): No Aphasia Dysarthria (read several words): Normal articulation Extinction and Inattention: No abnormality - Total Score NIH Stroke Scale Score: 3 <Karley Mcdaniel - Last Filed: 02/23/17 23:39>
[2017-02-23] MEDS ORDERED: DEXTROSE 50%-WATER - 25 GM/50 ML VIAL IVPUSH ONE (19:29)
[2017-02-23] MEDS ORDERED: SODIUM CHLORIDE 1,000 ML IV SCH (19:30)
--- NOTE | 2017-02-23 19:30 | PDOC ---
History of Present Illness - General Stated Complaint: POSSIBLE TIA Time Seen by Provider: 02/23/17 19:17 History Source: Patient, EMS, Family Exam Limitations: No Limitations - History of Present Illness Initial Comments: This is a 66 YOF with h/o multiple TIAs (last was about a month ago, dx as TIA vs. possible seizure vs. transient metabolic derangement), ESRD (on HD T//Mon with full uncomplicated treatment today) who is BIBA for altered mental status and right-sided facial droop. The family explain that a neighbor last saw the patient acting normally at 6 pm today, but by 6:10 pm she had developed slurred speech, confusion, and inability to answer simple questions. When EMS arrived on scene at her home they found her to be reportedly acting normal, answering questions, without slurred speech or confusion. She was speaking with them normally en route. However when they arrived here to the ED she had a recurrence of the same confusion and additionally developed the right-sided facial droop. She is only intermittently able to answer simple questions such as her date. She denies any current headache. The family denies that she has had any recent illness. Her primary provider is Mary Lutz. Past History - Past Medical History Allergies/Adverse Reactions: Allergies Allergy/AdvReac Type Severity Reaction Status Date / Time codeine Allergy Verified 10/31/16 10:47 promethazine HCl Allergy Verified 10/31/16 10:47 [From Phenergan] Home Medications: Ambulatory Orders Atorvastatin Ca [Lipitor] 20 mg PO HS 11/12/15 Pantoprazole Sodium [Protonix] 20 mg PO DAILY 11/12/15 Levetiracetam [Keppra -] 250 mg PO BID 30 Days tablet 11/16/15 Aspirin [ASA -] 81 mg PO DAILY #30 tab.chew 11/17/15 Metoprolol Tartrate [Lopressor -] 50 mg PO BID #60 tablet 11/17/15 Calcium Acetate [Phoslo -] 667 mg PO TIDCM 12/01/15 Clopidogrel Bisulfate [Plavix -] 75 mg PO DAILY tablet 11/03/16 Amlodipine Besylate [Norvasc -] 10 mg PO DAILY #30 tablet 01/20/17 Anemia: Yes Asthma: No Cancer: No Cardiac Disorders: No CVA: Yes (L sided weakness) COPD: No CHF: No Dementia: No Diabetes: Yes Dialysis: Yes (FISTULA L UPPER ARM, KIDNEY TRANSPLANT) GI Disorders: Yes (GERD) Disorders: No HTN: Yes Hypercholesterolemia: Yes Liver Disease: No Seizures: No Thyroid Disease: No - Surgical History Abdominal Surgery: Yes Appendectomy: Yes Neurologic Surgery: No - Immunization History Immunization Up to Date: Yes - Suicide/Smoking/Psychosocial Hx Smoking Status: No Smoking History: Unknown if ever smoked Have you smoked in the past 12 months: No Number of Cigarettes Smoked Daily: 0 Hx Alcohol Use: No Drug/Substance Use Hx: No Substance Use Type: None Hx Substance Use Treatment: No Review of Systems - Review of Systems Able to Perform ROS?: Yes Constitutional: No: Chills, Fever, Unexplained wgt Loss HEENTM: No: Nose Congestion, Throat Pain Respiratory: No: Cough, Shortness of Breath Cardiac (ROS): No: Chest Pain, Palpitations ABD/GI: No: Constipated, Diarrhea, Nausea, Vomiting : No: Burning, Dysuria Musculoskeletal: No: Back Pain, Neck Pain Integumentary: No: Bruising, Rash Neurological: Yes: Weakness (right face). No: Headache, Numbness, Tingling, Dizziness Endocrine: No: Unexplained Weight Gain, Unexplained Weight Loss NIH Stroke Scale - Last Known Well Date/Time & Onset Date Last Known Well: 02/23/17 Time Last Known Well: 18:00 (acute onset 1809) - Initial Evaluation Level of consciousness: Alert Ask patient the month and their age: Both incorrect Ask patient to open & close eyes; make fist and let go: Obeys both correctly Best gaze (horizontal eye movement): Normal Visual field testing: No visual field loss Facial paresis (Show teeth/raise eyebrows/close eyes tight): Minor paralysis ( flattened nasolabial fold, asymmetry on smiling) Motor Function: Left Arm: Normal Motor Function: Right Arm: Normal (extends arm 90 (or 45) degrees for 10 seconds without drift Motor Function: Left Leg: Normal (extends leg 30 degrees for 5 seconds without drift) Motor Function: Right Leg: Normal (extends leg 30 degrees for 5 seconds without drift) Limb Ataxia: No ataxia Sensory(Use pinprick test arms,legs,trunk,face/side to side): Normal Best language (Describe picture, name items, read sentences): No Aphasia Dysarthria (read several words): Normal articulation Extinction and Inattention: No abnormality - Total Score NIH Stroke Scale Score: 3 tPA Exclusion Checklist 0-3hr - Time Elapsed Date last known well: 02/23/17 Time last known well: 18:00 Elaspsed time: Day(s) and 5 Hour(s) and 35 Minutes - Thrombolytic Therapy Candidate Is the patient eligible for Thrombolytic Therapy?: Yes - Exclusion Criteria 0-3hr SBP greater than 185 or DBP greater than 110mmHg despite tx: No Recent IC/spinal surgery,head trauma or stroke w/in last 3mo: No Hx of previous IC hemorrhage, IC neoplasm, AVM or aneurysm: No Active internal bleeding: No Blding diathesis(low plt ct, inc PTT,INR>1.7 or use of NOAC): No Symptoms suggest subarachnoid hemorrhage: No CT demonstrates multilobar infarct(>1/3 cerebral hemiphere): No Arterial puncture at noncompressible site in previous 7 days: No Blood glucose concentration less than 50mg/dL (2.7mmol/L): No - Relative Exclusion Criteria 0-3h Life expectancy <1yr/severe co-morbid illness/TRAVEL COORDINATOR on admit: No : No Patient/family refused: No Rapid improvement: No Stroke severity too mild: Yes Recent acute IL (w/in previous 3 months): No Seizure at onset with postictal residual neuro impairments: No Major surgery or serious trauma w/in previous 14 days: No Recent GI or hemorrhage (w/in previous 21 days): No Critical Care Time/MDM Note - Medical Decision Making Note: 66 YOF with h/o TIA, ESRD on HD T//Mon, DM, HTN, HLD p/w confusion, disorientation, r facial droop. Based on timing of last known well, code thompson is activated shortly after the patient arrives to ED. On exam vitals wnl, patient is in no distress but does have significant speech latency, inattention. Answers some questions (knows the year and place but not the month or her own birthday). Also initially has mild right facial droop. These symptoms wax and wane within the department and are noted to have done so pre-hospital too. DDX IBNLT TIA, CVA, seizure, hypoglycemia or other metabolic derangement, toxic ingestion, infection, etc. Patient also given glucose as her BG is measured to be 65. 02/23/17 20:16 Patient with improved facial droop at this time but still question-answer latency. Remains unable to answer some simple questions like month, season, and her birthday. 02/23/17 21:12 Patient remains not answering month or childrens' names. However her children state she was answering month correctly 5 min ago. 02/23/17 21:57 MRI initially was ordered as the patient's aphasia and confusion/disorientation was persisting. However the daughters explain that the patient has not been able to tolerate closed MRI in the past. She has become agitated, combative, unable to tolerate it. The patient herself is unable to weigh in on this decision at this time. The daughters refuse MRI brain at this time as we only have closed MRI here. Patient still to be admitted pending lab results (two sets have hemolyzed). 02/23/17 22:46 Third set of chemistries sent to lab. Patient's repeat blood pressure is 211/108. Ordered are her night time medications (metoprolol, Keppra, Norvasc, Lipitor). Holding off on the ASA and Plavix that she takes regularly d/t risk for hemorrhagic conversion/possibility of ICH. Patient is now A/Ox3 and daughters state acting per normal baseline. 02/23/17 23:32 Dr. Mcdaniel spoke with Dr. Rogel and patient will be admitted to tele obs. Discharge Disposition - Diagnosis ESRD (end stage renal disease) on dialysis Altered mental status Qualifiers: Altered mental status type: unspecified Qualified Code(s): R41.82 - Altered mental status, unspecified - Discharge Dispostion Condition at time of disposition: Guarded Admit: Yes - Referrals Referrals: Loren Lutz MD [Primary Care Provider] - - Patient Instructions - Post Discharge Activity
[2017-02-23] MEDS ORDERED: DEXTROSE 50%-WATER 25 GM/50 ML DISP.SYRIN ONE (19:34)
[2017-02-23] MEDS ORDERED: DEXTROSE 50%-WATER - 25 GM/50 ML VIAL ONE (19:34)
[2017-02-23 19:50] LABS: BASOPHIL 1.9 % (0-2.0); EOSINOPHIL 16.7 % (0-4.5); MCH 30.5 pg (25.7-33.7); MCHC 32.2 g/dl (32.0-36.0); MEAN CELL VOLUME 94.6 fl (80-96); MEAN PLT VOLUME 9.1 fl (7.5-11.1); NEUTROPHILS 48.3 % (42.8-82.8); PLATELET COUNT 174 K/MM3 (134-434); RDW 15.9 % (11.6-15.6); WHITE BLOOD COUNT 9.2 K/mm3 (4.0-10.0)
[2017-02-23 20:00] VITALS: BMI 25.7
[2017-02-23 20:46] LABS: INR 0.98 (0.82-1.09); PROTHROMBIN TIME (PATIENT) 11.1 SEC (9.98-11.88)
[2017-02-23] MEDS ORDERED: METOCLOPRAMIDE HCL INJECTION 10 MG/2 ML VIAL IVPUSH ONE (21:22)
[2017-02-23] MEDS ORDERED: METOCLOPRAMIDE HCL INJECTION 10 MG/2 ML VIAL ONE (22:26)
[2017-02-23] MEDS ORDERED: levETIRAcetam 250 MG TABLET (FP) PO ONE (22:45)
[2017-02-23] MEDS ORDERED: METOPROLOL TARTRATE 50 MG TABLET (FP) PO ONE (22:45)
[2017-02-23] MEDS ORDERED: METOPROLOL TARTRATE 50 MG TABLET (FP) ONE (22:53)
[2017-02-23] MEDS ORDERED: amLODIPine BESYLATE 10 MG TABLET (FP) PO ONE (22:56)
[2017-02-23] MEDS ORDERED: ATORVASTATIN CA 20 MG TABLET (FP) PO ONE (22:57)
[2017-02-23 23:18] LABS: ALBUMIN 3.7 g/dl (3.4-5.0); ANION GAP 11 (8-16); BILIRUBIN,TOTAL 0.4 mg/dL (0.2-1.0); CALCIUM 8.8 mg/dL (8.5-10.1); CHOLESTEROL 133 mg/dL (50-200); CO2 29 mmol/L (21-32); CREATININE 5.6 mg/dL (0.55-1.02); GLUCOSE,RANDOM 139 mg/dL (74-106); SGOT/AST 49 U/L (15-37); SGPT/ALT 41 U/L (12-78); TOT PROT 8.8 g/dl (6.4-8.2)
[2017-02-23 23:21] LABS: ALK PHOS 75 U/L (45-117); CPK 62 IU/L (26-192); TROPONIN I < 0.02 ng/ml (0.00-0.05)
[2017-02-23] MEDS ORDERED: levETIRAcetam 500 MG TABLET (FP) PO ONE (23:46)
[2017-02-23] MEDS ORDERED: amLODIPine BESYLATE 5 MG TABLET (FP) ONE (23:46)
[2017-02-23] MEDS ORDERED: ATORVASTATIN CA 40 MG TABLET (FP) ONE (23:46)
--- NOTE | 2017-02-24 00:36 | HP ---
CHIEF COMPLAINT: Numbness PCP: Mary Lutz HISTORY OF PRESENT ILLNESS: Patient is a 66 yo F with a PMHx of HTN, HLD, TIA ( last one months ago,no deficits), CVA, DM, ESRD (HD ,,), kidney transplant 2006, was BIBA because of right sided arm and face numbness that started at 6pm and lasted for 15 minutes minutes. Patient stated she noticed slurring of her speech and her kids immediately called 911. It is documented the patient was found confused with slurred speech and inability to answer questions by her neighbor. As per ER, when EMS arrived at her home, patient appeared to be acting normal, answering questions, without slurred speech or confusion. However , it is noted that patient developed confusion and a facial droop in the ER which resolved. She had dialysis this morning and patient said she felt well after with no symptoms. She denies chest pain, SOB, dizziness, weakness, headache, nausea, vomiting, fever, and diarrhea. ER course was notable for: (1) Head CT: unremarkable for acute intracranial pathology (2) 200/103 BP (3) Potassium 5.4 Recent Travel: n/a PAST MEDICAL HISTORY: HTN, HLD, TIA , CVA, DM, ESRD (HD ,,S), kidney transplant 2006 PAST SURGICAL HISTORY: appendectomy Social History: Smoking: denies Alcohol: denies Drugs: denies Family History: Allergies codeine Allergy (Verified 10/31/16 10:47) promethazine HCl [From Phenergan] Allergy (Verified 10/31/16 10:47) ANAPHYLAXIS HOME MEDICATIONS: Home Medications Medication Instructions Recorded Atorvastatin Ca [Lipitor] 20 mg PO HS 11/12/15 Pantoprazole Sodium [Protonix] 20 mg PO DAILY 11/12/15 Levetiracetam [Keppra -] 250 mg PO BID 30 Days tablet 11/16/15 Aspirin [ASA -] 81 mg PO DAILY #30 tab.chew 11/17/15 Metoprolol Tartrate [Lopressor -] 50 mg PO BID #60 tablet 11/17/15 Calcium Acetate [Phoslo -] 667 mg PO TIDCM 12/01/15 Clopidogrel Bisulfate [Plavix -] 75 mg PO DAILY tablet 11/03/16 Amlodipine Besylate [Norvasc -] 10 mg PO DAILY #30 tablet 01/20/17 REVIEW OF SYSTEMS CONSTITUTIONAL: Absent: fever, chills, diaphoresis, generalized weakness, malaise, loss of appetite, weight change HEENT: Absent: rhinorrhea, nasal congestion, throat pain, throat swelling, difficulty swallowing, mouth swelling, ear pain, eye pain, visual changes CARDIOVASCULAR: Absent: chest pain, syncope, palpitations, irregular heart rate, lightheadedness , peripheral edema RESPIRATORY: Absent: cough, shortness of breath, dyspnea with exertion, orthopnea, wheezing, stridor, hemoptysis GASTROINTESTINAL: Absent: abdominal pain, abdominal distension, nausea, vomiting, diarrhea, constipation, melena, hematochezia GENITOURINARY: Absent: dysuria, frequency, urgency, hesitancy, hematuria, flank pain, genital pain MUSCULOSKELETAL: Absent: myalgia, arthralgia, joint swelling, back pain, neck pain SKIN: Absent: rash, itching, pallor HEMATOLOGIC/IMMUNOLOGIC: Absent: easy bleeding, easy bruising, lymphadenopathy, frequent infections ENDOCRINE: Absent: unexplained weight gain, unexplained weight loss, heat intolerance, cold intolerance NEUROLOGIC: numbness of right arm and face Absent: headache, focal weakness , dizziness, unsteady gait, seizure, mental status changes, bladder or bowel incontinence PSYCHIATRIC: Absent: anxiety, depression, suicidal or homicidal ideation, hallucinations. PHYSICAL EXAMINATION Vital Signs - 24 hr 02/23/17 02/23/17 02/24/17 19:18 19:54 00:14 Temperature 98.2 F 98.3 F Pulse Rate 65 72 Pulse Rate [ 70 Left Radial] Respiratory 18 18 Rate Blood Pressure 181/89 Blood Pressure 200/103 [Right Arm] O2 Sat by Pulse 98 98 100 Oximetry (%) GENERAL: A/O x 3, appears comfortable, speech latency, inattention HEAD: Normal with no signs of trauma. EYES: PERRL, extraocular movements intact, sclera anicteric, conjunctiva clear. EARS, NOSE, THROAT: oropharynx clear without exudates. Moist mucous membranes. NECK: supple without lymphadenopathy, JVD, or masses. LUNGS: Breath sounds equal, clear to auscultation bilaterally. No wheezes, and no crackles. No accessory muscle use. HEART: Regular rate and rhythm, holosystolic murmur LSB ABDOMEN: Soft, nontender, not distended, normoactive bowel sounds, no guarding, no rebound, no masses. UPPER EXTREMITIES: 2+ pulses, No cyanosis. No clubbing. No peripheral edema. LOWER EXTREMITIES: 2+ pulses. No peripheral edema. NEUROLOGICAL: symmetric face, no facial droop, Cranial nerves II-XII intact, 5/ 5 strength throughout b/l, sensation intact b/l PSYCHIATRIC: Cooperative. Good eye contact. Appropriate mood and affect. SKIN: Warm, dry, normal turgor, no rashes or lesions noted, normal capillary refill. Laboratory Results - last 24 hr 02/23/17 02/23/17 02/23/17 19:37 19:37 19:37 WBC 9.2 RBC 4.48 Hgb 13.6 Hct 42.4 MCV 94.6 MCH 30.5 MCHC 32.2 RDW 15.9 H Plt Count 174 D MPV 9.1 D Neutrophils % 48.3 D Lymphocytes % 24.4 D Monocytes % 8.7 Eosinophils % 16.7 H D Basophils % 1.9 PT with INR Cancelled INR Cancelled PTT (Actin FS) Cancelled Sodium Cancelled Potassium Cancelled Chloride Cancelled Carbon Dioxide Cancelled Anion Gap Cancelled BUN Cancelled Creatinine Cancelled Creat Clearance w eGFR Cancelled Random Glucose Cancelled Calcium Cancelled Total Bilirubin Cancelled AST Cancelled ALT Cancelled Alkaline Phosphatase Cancelled Creatine Kinase Cancelled Troponin I Cancelled Total Protein Cancelled Albumin Cancelled Triglycerides Cancelled Cholesterol Cancelled Total LDL Cholesterol Cancelled HDL Cholesterol Cancelled Blood Type Antibody Screen Spec Expiration Date 02/23/17 02/23/17 02/23/17 19:37 20:20 22:44 WBC RBC Hgb Hct MCV MCH MCHC RDW Plt Count MPV Neutrophils % Lymphocytes % Monocytes % Eosinophils % Basophils % PT with INR 11.10 INR 0.98 PTT (Actin FS) 31.0 Sodium 137 Potassium 5.4 H Chloride 97 L Carbon Dioxide 29 Anion Gap 11 BUN 23 H Creatinine 5.6 H Creat Clearance w eGFR 7.65 Random Glucose 139 H Calcium 8.8 Total Bilirubin 0.4 D AST 49 H D ALT 41 D Alkaline Phosphatase 75 Creatine Kinase 62 Troponin I < 0.02 Total Protein 8.8 H Albumin 3.7 Triglycerides 122 Cholesterol 133 D Total LDL Cholesterol 61 HDL Cholesterol 55 D Blood Type Cancelled Antibody Screen Cancelled Spec Expiration Date Cancelled ASSESSMENT/PLAN: Patient is a 66 yo F with a PMHx of HTN, HLD, TIA , CVA, DM, ESRD (HD T,TH,S), kidney transplant 2006, was BIBA because of right sided arm and face numbness. #TIA -Hx of TIA/CVA -Head CT: unremarkable for acute intracranial pathology -MRI ordered in ED but family refused because patient has not been able to tolerate closed MRI in the past. -Cardiac monitoring -NARESH 10/02: Mild MR, trace TR, Moderate -Carotid doppler 01/02: moderate atherosclerotic dz -Cont Atorvastatin 20mg -Cont. Aspirin 81mg -Neurology Consulted (Dr. Palmer) -Lipid profile -Took her oral medications without difficulty, speech eval not indicated at this time - Keppra 500mg, obtain medication list #Diabetes -was hypoglyemic at 67 on ED arrival. Was given D50w 25gm IV (resolved) -Not on any meds for it, FU outpatient -BGM -ISS #HTN -Amlodipine 10mg -Lopressor 50mg -maintain SBP around 160 DBP below 100 -obtain med list #ESRD -consider HD in am -nephrology consulted #Hyperkalemia -secondary to ESRD -5.4 #FEN -No IV fluids given -WNL -Renal diet #PPX -SCDs Dispo: obs/tele Visit type - Emergency Visit Emergency Visit: Yes ED Registration Date: 02/23/17 Care time: The patient presented to the Emergency Department on the above date and was hospitalized for further evaluation of their emergent condition. - New Patient This patient is new to me today: Yes Date on this admission: 02/24/17 - Critical Care Critical Care patient: No
[2017-02-24] MEDS: LABETALOL HCL 100 MG TABLET (FP) PO ONE ×2 (01:12→01:52)
--- NOTE | 2017-02-24 01:19 | PN ---
Teaching Attending Note Name of Resident: Tay Handy ATTENDING PHYSICIAN STATEMENT I saw and evaluated the patient. I reviewed the resident's note and discussed the case with the resident. I agree with the resident's findings and plan as documented. SUBJECTIVE: 66 year old female noted to have acute onset of right sided arm and face numbness and slurred speech associated with confusion that started at 6:10 PM . Apparently symptoms resolved upon arrival of ambulance, however mild facial droop was reported by EDP uppon arrival to ED . At that time blood glucose was found to be 62 ant patient recieved IV glucose . At the time of exam she is at her baseline mental status with no neurological deficit . She had HD today which was uneventful OBJECTIVE: Vital Signs Temperature 98.3 F 02/24/17 00:14 Pulse Rate 70 02/24/17 00:14 Respiratory Rate 18 02/24/17 00:14 Blood Pressure 200/103 02/24/17 00:14 O2 Sat by Pulse Oximetry (%) 100 02/24/17 00:14 LUNGS: Breath sounds equal, clear to auscultation bilaterally. No wheezes, and no crackles. HEART: Regular rate and rhythm, normal S1 and S2 without murmur, rub or gallop. ABDOMEN: Soft, nontender, not distended, normoactive bowel sounds NEUROLOGICAL: symmetric face, no facial droop, Cranial nerves II-XII intact, 5/ 5 strength throughout b/l, sensation intact b/l CBC, BMP 02/23/17 19:37 02/23/17 22:44 CT brain - no acute findings ASSESSMENT AND PLAN: 1. TIA possible CVA - carotid dopplers - echo - ASA - statin - lipid profile - neurology 2. ESRD - consider HD in am 3 Hyperkalemia - 2/2 ESRD 4 Uncontrolled HTN - PRN labetalol - maintain SBP around 160 DBP below 100
[2017-02-24] MEDS: levETIRAcetam 250 MG TABLET (FP) PO SCH ×2 (09:02→22:55)
[2017-02-24] MEDS: ASPIRIN 81 MG CHEWABLE TABLETS PO SCH (09:02)
[2017-02-24] MEDS: amLODIPine BESYLATE 10 MG TABLET (FP) PO SCH (09:03)
[2017-02-24 09:41] LABS: BASOPHIL 0.2 % (0-2.0); MCH 29.7 pg (25.7-33.7); MCHC 31.4 g/dl (32.0-36.0); MEAN CELL VOLUME 94.8 fl (80-96); MEAN PLT VOLUME 8.7 fl (7.5-11.1); NEUTROPHILS 60.3 % (42.8-82.8); PLATELET COUNT 158 K/MM3 (134-434); RDW 15.7 % (11.6-15.6); WHITE BLOOD COUNT 8.8 K/mm3 (4.0-10.0)
[2017-02-24 09:59] LABS: ALBUMIN 3.5 g/dl (3.4-5.0); ANION GAP 9 (8-16); CALCIUM 8.3 mg/dL (8.5-10.1); CHOLESTEROL 125 mg/dL (50-200); CO2 28 mmol/L (21-32); CREATININE 6.2 mg/dL (0.55-1.02); GLUCOSE,RANDOM 218 mg/dL (74-106); MAGNESIUM 2.1 mg/dL (1.8-2.4); SGOT/AST 27 U/L (15-37); SGPT/ALT 35 U/L (12-78); TOT PROT 8.3 g/dl (6.4-8.2)
[2017-02-24 10:01] LABS: ALK PHOS 74 U/L (45-117); BILIRUBIN,TOTAL 0.5 mg/dL (0.2-1.0); PHOSPHOROUS 5.7 mg/dL (2.5-4.9)
[2017-02-24 10:02] LABS: INR 0.98 (0.82-1.09); PROTHROMBIN TIME (PATIENT) 11.1 SEC (9.98-11.88)
--- NOTE | 2017-02-24 10:24 | EKG ---
Test Reason : Blood Pressure : / mmHG Vent. Rate : 070 BPM Atrial Rate : 070 BPM P-R Int : 174 ms QRS Dur : 102 ms QT Int : 450 ms P-R-T Axes : 015 015 067 degrees QTc Int : 486 ms NORMAL SINUS RHYTHM NONSPECIFIC T WAVE ABNORMALITY WHEN COMPARED WITH ECG OF 19-JAN-2017 06:14, NO SIGNIFICANT CHANGE WAS FOUND Confirmed by MD HELENA, MARLON ([id number]) on 02/24/2017 10:24:35 AM Referred By: Confirmed By:MARLON MALIK MD
--- NOTE | 2017-02-24 11:46 | CON.NEP ---
Consult Consult Specialty:: Nephrology Referred by:: Dr. Simons Reason for Consultation:: ESRD on HD, r/o CVA - History of Present Illness Chief Complaint: Left sided numbness History of Present Illness: This is a 66 year old woman with PMhx of ESRD on HD (TTS at [facility]), Hx of Renal transplant s/p chronic rejection, Hypertension, DM, Hx of TIA who presented with left sided numbness w/o weakness and admitted for TIA r/o CVA. Pt states that the numbness started in the right hand and spread to her right side of her face. In total it lasted about 15 minutes. No weakness. No dysarthria. No flank pain, sob, chest pain. s/p dialysis yesterday w/o complications. No LE swelling. - History Source History Provided By: Patient Limitations to Obtaining History: No Limitations - Past Medical History APARTMENT LOCATOR: Yes: CVA, Dementia, TIA Cardio/Vascular: Yes: HTN, Hyperlipdemia Gastrointestinal: Yes: Other Renal/: Yes: Renal Failure (on HD (TTS)), Hemodialysis, Other (s/p DDRT 2006) Endocrine: Yes: Diabetes Mellitus - Past Surgical History Past Surgical History: Yes: Appendectomy, , Hysterectomy, Kidney Transplant (2006 [facility]) - Alcohol/Substance Use Hx Alcohol Use: No - Smoking History Smoking history: Unknown if ever smoked Have you smoked in the past 12 months: No Aproximately how many cigarettes per day: 0 - Social History Usual Living Arrangement: With Significant Other ADL: Independent History of Recent Travel: No (traveled to [place] in August 2013) Home Medications - Allergies Allergies/Adverse Reactions: Allergies Allergy/AdvReac Type Severity Reaction Status Date / Time codeine Allergy Verified 10/31/16 10:47 promethazine HCl Allergy Verified 10/31/16 10:47 [From Phenergan] - Home Medications Home Medications: Ambulatory Orders Atorvastatin Ca [Lipitor] 20 mg PO HS 11/12/15 Pantoprazole Sodium [Protonix] 20 mg PO DAILY 11/12/15 Levetiracetam [Keppra -] 250 mg PO BID 30 Days tablet 11/16/15 Aspirin [ASA -] 81 mg PO DAILY #30 tab.chew 11/17/15 Metoprolol Tartrate [Lopressor -] 50 mg PO BID #60 tablet 11/17/15 Calcium Acetate [Phoslo -] 667 mg PO TIDCM 12/01/15 Clopidogrel Bisulfate [Plavix -] 75 mg PO DAILY tablet 11/03/16 Amlodipine Besylate [Norvasc -] 10 mg PO DAILY #30 tablet 01/20/17 Family Disease History - Family Disease History Family Disease History: Diabetes: Mother, Brother, Sister Review of Systems - Review of Systems Constitutional: reports: No Symptoms Eyes: reports: No Symptoms HENT: reports: No Symptoms Neck: reports: No Symptoms Cardiovascular: reports: No Symptoms Respiratory: reports: No Symptoms Gastrointestinal: reports: No Symptoms Genitourinary: reports: No Symptoms Musculoskeletal: reports: No Symptoms Integumentary: reports: No Symptoms Neurological: reports: Numbness. denies: Change in LOC, Change in Speech, Confusion, Headache, Incoordination, Parasthesia, Syncope, Unsteady Gait, Weakness Endocrine: reports: No Symptoms Nephrology Consult - Height Height: 5 ft 4 in - Weight Weight: 68.039 kg - BMI Body Mass Index (BMI): 25.7 - Lab Results CBC,BMP: CBC, BMP 02/24/17 09:00 02/24/17 09:00 Anion Gap: Anion Gap Anion Gap 9 (8-16) 02/24/17 09:00 - Imaging Chest X-ray: Report Reviewed Cat Scan: Report Reviewed - Physical Examination Vital Signs: Vital Signs Temperature 99.5 F 02/24/17 10:00 Pulse Rate 66 02/24/17 10:00 Respiratory Rate 18 02/24/17 10:00 Blood Pressure 140/66 02/24/17 10:00 O2 Sat by Pulse Oximetry (%) 98 02/24/17 09:00 Constitutional: Yes: Well Nourished, No Distress, Calm Eyes: Yes: Conjunctiva Clear HENT: Yes: Atraumatic, Normocephalic Neck: Yes: Supple, Trachea Midline Cardiovascular: Yes: Regular Rate and Rhythm, S1, S2. No: JVD, Murmur, Rub Respiratory: Yes: Regular, CTA Bilaterally. No: Rales, Rhonchi, SOB, Wheezes Gastrointestinal: Yes: Normal Bowel Sounds, Soft. No: Tenderness Access for Hemodialysis: AV Fistula Extremities: No: Cold, Cool, Cyanosis Edema: No Neurological: Yes: Alert, Oriented, Cran Nerves II-XII Intact. No: Numbness Assessment/Plan 66 year old woman with PMhx of ESRD on HD (TTS at [facility]), Hx of Renal transplant s/p chronic rejection, Hypertension, DM, Hx of TIA who presented with left sided numbness w/o weakness and admitted for TIA r/o CVA. #Unilateral numbness w/o weakness now resolved/TIA r/o CVA Symptoms now resolved continue Tele monitoring awaiting doppler Neuro Eval as per primary on ASA and Plavix #ESRD on HD with mild hyperkalemia s/p full HD yesterday K is 5.2 today, no acute intervention warranted for dialysis tomorrow in AM Renal diet 1.2 L fluid restriction Dose all meds for intermittent HD #Hypertension Continue Metoprolol and Amlodipine goal BP < 140/90 Thank you Will follow Nicolas Campoverde DO
[2017-02-24] MEDS: CALCIUM ACETATE 667 MG CAPSULE (FP) PO SCH ×2 (12:20→16:57)
--- NOTE | 2017-02-24 16:56 | CON.NEURO ---
Consult Consult Specialty:: Neurology Referred by:: Juan F Reason for Consultation:: Transient Neurological Deficits - History of Present Illness Chief Complaint: Right sided face and arm sensory loss and dysarthria that resolved History of Present Illness: Patient is a 66 yo F with a PMHx of HTN, HLD, TIA (last one months ago,no deficits), CVA, DM, ESRD (HD T,TH,S), kidney transplant 2006, was BIBA because of right sided arm and face numbness that started at 6pm and lasted for 15 minutes minutes. Patient stated she noticed slurring of her speech and her kids immediately called 911. It is documented the patient was found confused with slurred speech and inability to answer questions by her neighbor. As per ER, when EMS arrived at her home, patient appeared to be acting normal, answering questions, without slurred speech or confusion. However, it is noted that patient developed confusion and a facial droop in the ER which resolved. She had dialysis that morning and patient said she felt well after with no symptoms. She denies chest pain, SOB, dizziness, weakness, headache, nausea, vomiting, fever, and diarrhea. 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: CVA, Dementia, TIA Cardio/Vascular: Yes: HTN, Hyperlipdemia Gastrointestinal: Yes: Other Renal/: Yes: Renal Failure (on HD ()), Hemodialysis, Other (s/p DDRT 2006) Endocrine: Yes: Diabetes Mellitus - Past Surgical History Past Surgical History: Yes: Appendectomy, , Hysterectomy, Kidney Transplant (2006 [facility]) - Alcohol/Substance Use Hx Alcohol Use: No - Smoking History Smoking history: Unknown if ever smoked Have you smoked in the past 12 months: No Aproximately how many cigarettes per day: 0 - Social History Usual Living Arrangement: With Significant Other ADL: Independent History of Recent Travel: No (traveled to [place] in August 2013) Home Medications - Allergies Allergies/Adverse Reactions: Allergies Allergy/AdvReac Type Severity Reaction Status Date / Time codeine Allergy Verified 10/31/16 10:47 promethazine HCl Allergy Verified 10/31/16 10:47 [From Phenergan] - Home Medications Home Medications: Ambulatory Orders Atorvastatin Ca [Lipitor] 20 mg PO HS 11/12/15 Pantoprazole Sodium [Protonix] 20 mg PO DAILY 11/12/15 Levetiracetam [Keppra -] 250 mg PO BID 30 Days tablet 11/16/15 Aspirin [ASA -] 81 mg PO DAILY #30 tab.chew 11/17/15 Metoprolol Tartrate [Lopressor -] 50 mg PO BID #60 tablet 11/17/15 Calcium Acetate [Phoslo -] 667 mg PO TIDCM 12/01/15 Clopidogrel Bisulfate [Plavix -] 75 mg PO DAILY tablet 11/03/16 Amlodipine Besylate [Norvasc -] 10 mg PO DAILY #30 tablet 01/20/17 Family Disease History - Family Disease History Family Disease History: Diabetes: Mother, Brother, Sister Physical Exam-Neuro Vital Signs: Vital Signs Temperature 98.6 F 02/24/17 14:00 Pulse Rate 69 02/24/17 14:00 Respiratory Rate 18 02/24/17 14:00 Blood Pressure 141/67 02/24/17 14:00 O2 Sat by Pulse Oximetry (%) 98 02/24/17 09:00 Constitutional: Yes: Well Nourished, No Distress Labs: CBC, BMP 02/24/17 09:00 02/24/17 09:00 INR, PTT INR 0.98 (0.82-1.09) 02/24/17 09:00 - Neuro Exam Level Of Consciousness: Yes: Alert, Oriented to Person, Oriented to Place, Oriented to Time Eyes: Yes: NORAH, Other (EOMI) Speech: WNL Cranial Nerves II-XII Intact: Yes DTR's: 0 Left Achilles, 0 Right Achilles, 2+ Left Bicep, 2+ Right Bicep, 2+ Left Tricep, 2+ Right Tricep, 2+ Left Brachioradialis, 2+ Right Brachioradialis Babinski: Absent Response to light touch: Normal Motor Strength: 5/5: Left Arm, Right Arm, Left Leg, Right Leg (No pronator drift ) Problem List - Problems (1) Cerebrovascular accident (CVA) Code(s): I63.9 - CEREBRAL INFARCTION, UNSPECIFIED Qualifiers: CVA mechanism: unspecified Qualified Code(s): I63.9 - Cerebral infarction, unspecified Assessment/Plan TIA. CT head reviewed which shows old infarcts. She is on Aspirin and statin, and I'd consider changing to Plavix as this event occurred on aspirin. Consider heart monitor to r/o paroxysmal Afib. Patient declined MRI because of claustrophobia.
[2017-02-24] MEDS: INSULIN SLIDING SCALE (NOVOLOG) 1 VIAL SQ SCH ×2 (17:30→22:53)
[2017-02-24] MEDS ORDERED: ATORVASTATIN CA 20 MG TABLET (FP) PO SCH (22:00)
[2017-02-24] MEDS: METOPROLOL TARTRATE 25 MG TABLET (FP) PO SCH (22:55)
[2017-02-25] MEDS: INSULIN SLIDING SCALE (NOVOLOG) 1 VIAL SQ SCH ×2 (06:26→13:02)
[2017-02-25 08:35] LABS: BASOPHIL 2.7 % (0-2.0); EOSINOPHIL 18.9 % (0-4.5); MCH 30.3 pg (25.7-33.7); MCHC 32.2 g/dl (32.0-36.0); NEUTROPHILS 42.7 % (42.8-82.8); PLATELET COUNT 140 K/MM3 (134-434); RDW 15.7 % (11.6-15.6); WHITE BLOOD COUNT 6.5 K/mm3 (4.0-10.0)
[2017-02-25] MEDS: CALCIUM ACETATE 667 MG CAPSULE (FP) PO SCH ×2 (08:43→11:43)
[2017-02-25 09:49] LABS: ALBUMIN 3.1 g/dl (3.4-5.0); ANION GAP 13 (8-16); CALCIUM 7.5 mg/dL (8.5-10.1); CO2 26 mmol/L (21-32); GLUCOSE,RANDOM 145 mg/dL (74-106); MAGNESIUM 2.3 mg/dL (1.8-2.4)
[2017-02-25 09:59] LABS: ALK PHOS 65 U/L (45-117); BILIRUBIN,TOTAL 0.6 mg/dL (0.2-1.0); PHOSPHOROUS 6.5 mg/dL (2.5-4.9); SGOT/AST 22 U/L (15-37); SGPT/ALT 29 U/L (12-78); TOT PROT 7.6 g/dl (6.4-8.2)
[2017-02-25] MEDS ORDERED: CLOPIDOGREL BISULFATE 75 MG TABLET (FP) PO SCH (10:00)
[2017-02-25] MEDS ORDERED: PANTOPRAZOLE 20 MG TABLET (FP) PO SCH (10:00)
[2017-02-25 10:44] LABS: CREATININE 8.2 mg/dL (0.55-1.02)
--- NOTE | 2017-02-25 10:45 | PN ---
Progress Note (short form) - Note Progress Note: Renal follow up for ESRD on HD Pt seen and examined during dialysis BP stable, AVF with good flow UF goal is ~2 pt without complaints no numbness or weakness today Vital Signs Temperature 98 F 02/25/17 07:30 Pulse Rate 62 02/25/17 08:45 Respiratory Rate 18 02/25/17 08:45 Blood Pressure 129/67 02/25/17 08:45 O2 Sat by Pulse Oximetry (%) 97 02/24/17 21:00 Intake & Output 02/22/17 02/23/17 02/24/17 02/25/17 23:59 23:59 23:59 23:59 Intake Total 250 Output Total 2 Balance 248 Weight 68.039 kg 68.039 kg NAD awake and alert RRR No LE edema CBC, BMP 02/25/17 07:30 02/25/17 07:30 Current Medications Amlodipine Besylate (Norvasc -) 10 mg PO DAILY [facility] Last Admin: 02/24/17 09:03 Dose: Not Given Aspirin (Asa -) 81 mg PO DAILY [facility] Last Admin: 02/24/17 09:02 Dose: 81 mg Atorvastatin Calcium (Lipitor -) 20 mg PO HS [facility] Last Admin: 02/24/17 22:55 Dose: 20 mg Calcium Acetate (Phoslo -) 667 mg PO TIDCM [facility] Last Admin: 02/25/17 08:43 Dose: Not Given Clopidogrel Bisulfate (Plavix -) 75 mg PO DAILY [facility] Insulin Aspart (Novolog Vial Sliding Scale -) 1 vial SQ ACHS [facility] PRN Reason: Protocol Last Admin: 02/25/17 06:26 Dose: 2 unit Levetiracetam (Keppra -) 250 mg PO BID [facility] Last Admin: 02/24/17 22:55 Dose: 250 mg Metoprolol Tartrate (Lopressor -) 50 mg PO BID [facility] Last Admin: 02/24/17 22:55 Dose: 50 mg Pantoprazole Sodium (Protonix -) 20 mg PO DAILY [facility] 66 year old woman with PMhx of ESRD on HD (TTS at [facility]), Hx of Renal transplant s/p chronic rejection, Hypertension, DM, Hx of TIA who presented with left sided numbness w/o weakness and admitted for TIA r/o CVA. #Unilateral numbness w/o weakness now resolved/TIA r/o CVA at baseline now f/u carotid doppler Neurology consult noted on Plavix #ESRD on HD with mild hyperkalemia tolerating dialysis well today #Hypertension Continue Metoprolol and Amlodipine goal BP < 140/90 Nicolas Campoverde DO
--- NOTE | 2017-02-25 11:09 | PN ---
Progress Note (short form) - Note Progress Note: CC Episode of TIA HPI 66 year old female history of htn, hld, tia, dm, esrd, kidney transplant, no cad. This is her second tia in one month. Patient also have hsitoyr of epilepsy on keppra. Though she did not tell me that she had seizures, supervisor sound technician told me that she i s not a good historian. Patient came with right arm and face numbness and she was started on plavix, and aspirin was not discontinued. Past Medical History as above. SH,FH,ROS reviewed in chart. Allergies/Adverse Reactions: Allergies Allergy/AdvReac Type Severity Reaction Status Date / Time codeine Allergy Verified 10/31/16 10:47 promethazine HCl Allergy Verified 10/31/16 10:47 [From Phenergan] Home Medications: Atorvastatin Ca [Lipitor] 20 mg PO HS 11/12/15 Pantoprazole Sodium [Protonix] 20 mg PO DAILY 11/12/15 Levetiracetam [Keppra -] 250 mg PO BID 30 Days tablet 11/16/15 Aspirin [ASA -] 81 mg PO DAILY #30 tab.chew 11/17/15 Metoprolol Tartrate [Lopressor -] 50 mg PO BID #60 tablet 11/17/15 Calcium Acetate [Phoslo -] 667 mg PO TIDCM 12/01/15 Clopidogrel Bisulfate [Plavix -] 75 mg PO DAILY tablet 11/03/16 Amlodipine Besylate [Norvasc -] 10 mg PO DAILY #30 tablet 01/20/17 Neurological Examination Alert follow command, eomi, and no face asymmetry moving all extremity sensatioin is gross normal ct head is normal carotid ultrasound done in december 2015 showed moderate carotid disease but no stenosis mri of brain could not be done Assessment- TIA , risk factor include ESRD, HTN, PREVIOUS STROKE, unlikley to be seiuzre and conitnue keppra Plan continue plavix, and stop aspirin repeat carotid ultrasound - continue keppra and no need for EEG Thanks , Call me if any question Eric Shaikh MD
[2017-02-25] MEDS: levETIRAcetam 250 MG TABLET (FP) PO SCH (11:44)
[2017-02-25] MEDS: METOPROLOL TARTRATE 25 MG TABLET (FP) PO SCH (11:44)
[2017-02-25] MEDS: amLODIPine BESYLATE 10 MG TABLET (FP) PO SCH (11:47)
--- NOTE | 2017-02-25 12:56 | DS ---
Physical Exam: SUBJECTIVE: Patient seen and examined OBJECTIVE: Vital Signs Period Temp Pulse Resp BP Sys/Travis Pulse Ox Last 24 Hr 97.5 F-98.6 F 61-69 18-20 108-159/6-79 97 PHYSICAL EXAM GENERAL: The patient is awake, alert, and fully oriented, in no acute distress. HEAD: Normal with no signs of trauma. EYES: PERRL, extraocular movements intact, sclera anicteric, conjunctiva clear. ENT: Ears normal, nares patent, oropharynx clear without exudates, moist mucous membranes. NECK: Trachea midline, full range of motion, supple. LUNGS: Breath sounds equal, clear to auscultation bilaterally, no wheezes, no crackles, no accessory muscle use. HEART: Regular rate and rhythm, S1, S2 without murmur, rub or gallop. ABDOMEN: Soft, nontender, nondistended, normoactive bowel sounds, no guarding, no rebound, no hepatosplenomegaly, no masses. EXTREMITIES: 2+ pulses, warm, well-perfused, no edema. NEUROLOGICAL: Cranial nerves II through XII grossly intact. Normal speech, gait not observed. PSYCH: Normal mood, normal affect. SKIN: Warm, dry, normal turgor, no rashes or lesions noted. LABS Laboratory Results - last 24 hr 02/23/17 02/23/17 02/24/17 19:29 21:33 16:50 WBC RBC Hgb Hct MCV MCH MCHC RDW Plt Count MPV Neutrophils % Lymphocytes % Monocytes % Eosinophils % Basophils % Sodium Potassium Chloride Carbon Dioxide Anion Gap BUN Creatinine Creat Clearance w eGFR POC Glucometer 65.71552 127.36362 236 Random Glucose Calcium Phosphorus Magnesium Total Bilirubin AST ALT Alkaline Phosphatase Total Protein Albumin Hepatitis C Antibody 02/24/17 02/25/17 02/25/17 21:14 06:00 06:18 WBC RBC Hgb Hct MCV MCH MCHC RDW Plt Count MPV Neutrophils % Lymphocytes % Monocytes % Eosinophils % Basophils % Sodium 133 L Potassium 5.4 H Chloride 94 L Carbon Dioxide 26 Anion Gap 13 BUN 44 H D Creatinine 8.2 H* D Creat Clearance w eGFR 4.92 POC Glucometer 123 151 Random Glucose 145 H D Calcium 7.5 L Phosphorus 6.5 H Magnesium 2.3 Total Bilirubin 0.6 AST 22 ALT 29 Alkaline Phosphatase 65 Total Protein 7.6 Albumin 3.1 L Hepatitis C Antibody 02/25/17 02/25/17 02/25/17 07:30 07:30 07:30 WBC 6.5 RBC 3.91 Hgb 11.8 D Hct 36.8 MCV 94.0 MCH 30.3 MCHC 32.2 RDW 15.7 H Plt Count 140 MPV 9.0 Neutrophils % 42.7 L D Lymphocytes % 27.6 D Monocytes % 8.1 Eosinophils % 18.9 H Basophils % 2.7 H D Sodium Cancelled Potassium Cancelled Chloride Cancelled Carbon Dioxide Cancelled Anion Gap Cancelled BUN Cancelled Creatinine Cancelled Creat Clearance w eGFR POC Glucometer Random Glucose Cancelled Calcium Cancelled Phosphorus Cancelled Magnesium Total Bilirubin AST ALT Alkaline Phosphatase Total Protein Albumin Hepatitis C Antibody Cancelled 02/25/17 11:10 WBC RBC Hgb Hct MCV MCH MCHC RDW Plt Count MPV Neutrophils % Lymphocytes % Monocytes % Eosinophils % Basophils % Sodium Potassium Chloride Carbon Dioxide Anion Gap BUN Creatinine Creat Clearance w eGFR POC Glucometer 156 Random Glucose Calcium Phosphorus Magnesium Total Bilirubin AST ALT Alkaline Phosphatase Total Protein Albumin Hepatitis C Antibody HOSPITAL COURSE: Date of Admission:02/23/17 Date of Discharge: 02/25/17 Discharge Summary Reason For Visit: END STAGE RENAL FAILURE ON DIALYSIS Current Active Problems Altered mental status (Acute) ESRD (end stage renal disease) on dialysis (Chronic) Condition: Improved - Instructions Diet, Activity, Other Instructions: It is recommended that you STOP taking a daily aspirin but continue to take Plavix every day along with your other home medications. Your next regularly scheduled dialysis treatment is next Monday. Return to the emergency department for any new or worsening symptoms. Referrals: Loren Lutz MD [Primary Care Provider] - Disposition: HOME - Home Medications Comprehensive Discharge Medication List: Ambulatory Orders Atorvastatin Ca [Lipitor] 20 mg PO HS 11/12/15 Pantoprazole Sodium [Protonix] 20 mg PO DAILY 11/12/15 Levetiracetam [Keppra -] 250 mg PO BID 30 Days tablet 11/16/15 Metoprolol Tartrate [Lopressor -] 50 mg PO BID #60 tablet 11/17/15 Calcium Acetate [Phoslo -] 667 mg PO TIDCM 12/01/15 Clopidogrel Bisulfate [Plavix -] 75 mg PO DAILY tablet 11/03/16 Amlodipine Besylate [Norvasc -] 10 mg PO DAILY #30 tablet 01/20/17
[2017-02-25] MEDS: ASPIRIN 81 MG CHEWABLE TABLETS PO SCH (12:57)
[2017-02-25 13:15] VITALS: BP 131/62; PULSE 67
[2017-02-25 13:16] VITALS: TEMP 98
== END 2017-02-25 14:20 | disposition home or self-care (01) ==
LOC: JER 19:04 → J4S 23:35 → JERBED 02-24 00:02 → UNDOADMOB 02-24 00:02 → J4S 02-24 00:50 → JERBED 02-24 00:50
PROVIDERS: ADMIT Internal Medicine; ATTEND Nurse Practitioner Acute Care
PROC: 3E033GC Introduction of Other Therapeutic Substance into Peripheral Vein, Percutaneous Approach (ICD-10-PCS; principal; 2017-02-23)
PROC: 3E013VG Introduction of Insulin into Subcutaneous Tissue, Percutaneous Approach (ICD-10-PCS; 2017-02-23)
DX: G45.9 Transient cerebral ischemic attack, unspecified (principal); I12.0 Hypertensive chronic kidney disease with stage 5 chronic kidney disease or end stage renal disease; E11.22 Type 2 diabetes mellitus with diabetic chronic kidney disease; N18.6 End stage renal disease; N17.8 Other acute kidney failure; Z99.2 Dependence on renal dialysis; F03.90 Unspecified dementia, unspecified severity, without behavioral disturbance, psychotic disturbance, mood disturbance, and anxiety; E78.5 Hyperlipidemia, unspecified; Z86.73 Personal history of transient ischemic attack (TIA), and cerebral infarction without residual deficits
CPT/HCPCS: 36415; 70450-TC; 80053; 80061; 82550; 83721; 83735; 84100; 84484; 85025; 85610; 85730; 86704; 86706; 86708; 86803; 86850; 86900; 86901; 87340; 93005; 93010; 93880-TC; 96372; 96374; 96375; 99284-25; G0378

== ENCOUNTER 2017-03-22 16:38 | Inpatient (IN) | payer OTHER ==
--- NOTE | 2017-03-22 16:45 | PDOC ---
Attending Attestation - [facility] HPI: 03/22/17 17:15 The patient is a 66 year old female, with a significant past medical history of ESRD( on dialysis T, Th, S), multiple TIAs (last one about 2 months ago), who presents to the emergency department with changes in mental status since approximately 11:00 this morning. Per family, the patient woke up at approximately 09:00 at her baseline. However, at approximately 11:00 the patient began to become confused and experienced several episodes of nausea and emesis (nonbloody/ nonbilious). As per family, they have noted a dry cough for the past 2 days, but no fever. Family denies any diarrhea or constipation. The patient last took Norvasc and Keppra this morning, but not any of her other meds. Per records, patient was in the ER on 02/23/17 with similar symptoms and was admitted to rule out CVA/TIA. Patients history is limited due to changes in mental status. Allergies: Codeine, Promethazine HCl Past Surgical History: Appendectomy Social History: Non smoker. No ETOH or recreational drug use, PCP: Dr. Lutz - Physicial Exam PE: 03/22/17 17:34 Constitutional: Awake and Alert. Noncooperative. Slow to respond to son. No acute distress. Head: Normocephalic. Atraumatic Eyes: Pupils 3 and reactive bilaterally. EOMI. Conjunctivae are not pale. ENT: Mucous membranes are moist and intact. Posterior pharynx without exudates or erythema. Uvula midline. Neck: Supple. Full ROM. No lymphadenopathy. Cardiovascular: Regular rate. Regular rhythm. S1, S2 regular. Distal pulses are 2+ and symmetric. Pulmonary/Chest: Diminished breath sounds at the bases bilaterally, but poor respiratory effort. No wheezing, rales or rhonchi. Abdominal: Soft and non-distended. There is no tenderness. No rebound, guarding or rigidity. No organomegaly. No palpable masses. Good bowel sounds. Back: No CVA tenderness. Musculoskeletal: Left upper extremity AV fistula with bruit and thrill. No edema. No cyanosis. No clubbing. Full range of motion in all extremities, but not following commands. No calf tenderness. Radial/pedal pulses are intact and 2+ bilaterally Skin: Skin is warm and dry. No petechiae. No purpura. Neurological: Alert and orientation difficult to assess. Cranial nerves II- XII are grossly intact. Normal speech. Strength is grossly symmetric. No sensory deficits. Psychiatric: Good eye contact. Slow to respond to son. - Medical Decision Making 03/22/17 17:15 Documentation prepared by Grace Sneed, acting as medical office supervisor for Karley Mcdaniel DO. <Grace Sneed - Last Filed: 03/22/17 17:34> - Resident Resident Name: Angelo Ramirez - ED Attending Attestation I have performed the following: I have examined & evaluated the patient, The case was reviewed & discussed with the resident, I agree w/resident's findings & plan, Exceptions are as noted - Medical Decision Making 03/22/17 16:44 I, Dr. Karley Mcdaniel DO, attest that this document has been prepared under my direction and personally reviewed by me in its entirety. I further attest, that it accurately reflects all work, treatment, procedures and medical decision -making performed by me. 03/22/17 17:02 a/p: 66yo female with AMS that waxes and wanes x 2 days -last normal at 9a -concern given cough, n/v that the patient has an infection as cause of AMS -will obtain head ct given hx of cva, but no focal deficit other than ams, out of window given onset at 9a last normal -will obtain labs, head ct, cxr, ekg, pt does not make urine -will monitor vitals and reassess 03/22/17 20:[address] Willis who accepts pt to obs <Karley Mcdaniel - Last Filed: 03/22/17 20:18> Discharge Disposition - Discharge Dispostion Last Admission D/C Date: 01/20/17 Admit: Yes <Karley Mcdaniel - Last Filed: 03/22/17 20:18> - Diagnosis Altered mental status, Nausea & vomiting, Hypertensive urgency - Discharge Dispostion Condition at time of disposition: Fair - Referrals Referrals: Loren Lutz MD [Primary Care Provider] - - Patient Instructions - Post Discharge Activity Heart Score/ECG Review - ECG Intrepretation Comment:: 03/22/17 20:18 sinus at 90, nl axis, nl interval, hyperacute t waves, no acute changes <Karley Mcdaniel - Last Filed: 03/22/17 20:18>
[2017-03-22] MEDS ORDERED: ONDANSETRON 4 MG/2 ML VIAL IVPUSH ONE (17:08)
[2017-03-22] MEDS ORDERED: FAMOTIDINE 20 MG/50 ML IVPB 20 MG/50 ML MG IVPB ONE ×2 (17:10→18:11)
[2017-03-22 17:54] LABS: BASO % 1.2 % (0-2.0); EOS % 7.5 % (0-4.5); HEMATOCRIT 39.3 % (32.4-45.2); HEMOGLOBIN 12.7 GM/dL (10.7-15.3); LYMPH % 14.1 % (8-40); MCH 30.2 pg (25.7-33.7); MCHC 32.3 g/dl (32.0-36.0); MEAN CELL VOLUME 93.5 fl (80-96); MEAN PLT VOLUME 8.2 fl (7.5-11.1); MONO % 5.7 % (3.8-10.2); NEUT % 71.5 % (42.8-82.8); PLATELET COUNT 195 K/MM3 (134-434); RDW 16.5 % (11.6-15.6)
[2017-03-22] MEDS ORDERED: ONDANSETRON 4 MG/2 ML VIAL ONE (18:11)
[2017-03-22 18:12] LABS: INR 0.92 (0.82-1.09); PROTHROMBIN TIME (PATIENT) 10.4 SEC (9.98-11.88)
[2017-03-22 18:15] LABS: ACTIVATED PTT 30.4 SECONDS (26.9-34.4)
[2017-03-22 18:23] LABS: VENOUS PC02 42.3 mmHg (38-52); VENOUS PH 7.37 (7.32-7.42)
[2017-03-22 18:39] LABS: ALBUMIN 3.6 g/dl (3.4-5.0); ANION GAP 11 (8-16); BLOOD UREA NITROGEN 26 mg/dL (7-18); CALCIUM 8.3 mg/dL (8.5-10.1); CHLORIDE 99 mmol/L (98-107); CO2 22 mmol/L (21-32); CREATININE 6.7 mg/dL (0.55-1.02); GLUCOSE,RANDOM 174 mg/dL (74-106); SGPT/ALT 25 U/L (12-78); SODIUM 132 mmol/L (136-145)
[2017-03-22 18:43] LABS: ALK PHOS 71 U/L (45-117); BILIRUBIN,TOTAL 0.7 mg/dL (0.2-1.0); TOT PROT 8.5 g/dl (6.4-8.2)
[2017-03-22 18:50] LABS: SGOT/AST 20 U/L (15-37)
[2017-03-22] MEDS ORDERED: INSULIN REGULAR HUMAN 100 UNITS/ML *VIAL IVPUSH ONE ×2 (19:27→21:33)
[2017-03-22] MEDS ORDERED: DEXTROSE 50%-WATER - 25 GM/50 ML VIAL IVPUSH ONE ×2 (19:27→21:33)
[2017-03-22] MEDS ORDERED: ALBUTEROL SO4 0.083% IH SOL 2.5 MG/3 ML VIAL.NEB. NEB ONE ×3 (19:28→22:45)
[2017-03-22] MEDS ORDERED: LABETALOL HCL 5 MG/1 ML (100MG/20 ML VIAL) IVPUSH ONE (19:39)
--- NOTE | 2017-03-22 19:43 | PDOC ---
History of Present Illness - General Chief Complaint: Altered Mental Status Stated Complaint: Altered Mental Status Time Seen by Provider: 03/22/17 16:41 History Source: Family Exam Limitations: Clinical Condition - History of Present Illness Initial Comments: 03/22/17 19:43 Patient is a 66F with history of HTN, HLD, TIA (several in the past 2 months), CVA, DM, ESRD (HD T,TH,S), kidney transplant 2006 here today complaining of altered mental status. Last known well was 9am. Patient has had waxing and waning mental status for the past several days according to family. Patient has had several episodes of vomiting in the past day, according to the family. Family is unsure of if she has been having fevers, chill, chest pain, shortness of breath. Patient is unable to give any history. Family reports that she took keppra and metoprolol today. Past History - Past Medical History Allergies/Adverse Reactions: Allergies Allergy/AdvReac Type Severity Reaction Status Date / Time codeine Allergy Verified 10/31/16 10:47 promethazine HCl Allergy Verified 10/31/16 10:47 [From Phenergan] Home Medications: Ambulatory Orders Atorvastatin Ca [Lipitor] 20 mg PO HS 11/12/15 Pantoprazole Sodium [Protonix] 20 mg PO DAILY 11/12/15 Levetiracetam [Keppra -] 250 mg PO BID 30 Days tablet 11/16/15 Metoprolol Tartrate [Lopressor -] 50 mg PO BID #60 tablet 11/17/15 Calcium Acetate [Phoslo -] 667 mg PO TIDCM 12/01/15 Clopidogrel Bisulfate [Plavix -] 75 mg PO DAILY tablet 11/03/16 Amlodipine Besylate [Norvasc -] 10 mg PO DAILY #30 tablet 01/20/17 Anemia: Yes Asthma: No Cancer: No Cardiac Disorders: No CVA: Yes (L sided weakness) COPD: No CHF: No Dementia: No Diabetes: Yes Dialysis: Yes (FISTULA L UPPER ARM, KIDNEY TRANSPLANT) GI Disorders: Yes (GERD) Disorders: No HTN: Yes Hypercholesterolemia: Yes Liver Disease: No Seizures: No Thyroid Disease: No - Surgical History Abdominal Surgery: Yes Appendectomy: Yes Neurologic Surgery: No - Immunization History Immunization Up to Date: Yes - Suicide/Smoking/Psychosocial Hx Smoking Status: No Smoking History: Unknown if ever smoked Have you smoked in the past 12 months: No Number of Cigarettes Smoked Daily: 0 Information on smoking cessation initiated: No Hx Alcohol Use: No Drug/Substance Use Hx: No Substance Use Type: None Hx Substance Use Treatment: No Review of Systems - Review of Systems Able to Perform ROS?: No (2/2 clinical condition.) *Physical Exam - Vital Signs Last Vital Signs Temp Pulse Resp BP Pulse Ox 98.9 F 85 16 216/101 100 03/22/17 17:00 03/22/17 16:49 03/22/17 16:49 03/22/17 16:49 03/22/17 16:49 - Physical Exam Comments: 03/22/17 19:54 GENERAL: Eyes closed, arms held to chest, some coughing, refusing to open eyes, holding eyes shut. HEAD: No signs of trauma, normocephalic, atraumatic EYES: PERRLA, EOMI, sclera anicteric, conjunctiva clear ENT: Auricles normal inspection, hearing grossly normal, nares patent, oropharynx clear without exudates. Moist mucosa LUNGS: No distress, clear to auscultation bilaterally, limited by patient non- compliance with exam HEART: Regular rate and rhythm, normal S1 and S2, no murmurs, rubs or gallops, peripheral pulses normal and equal bilaterally. ABDOMEN: Soft, nontender, normoactive bowel sounds. No guarding, no rebound. No masses EXTREMITIES: Normal inspection, Normal range of motion, no edema. No clubbing or cyanosis. NEUROLOGICAL: Moving all extremities, not complying with exam, squeezes hand, moves feet, moves arms. CN2-12 seem to be intact. SKIN: Warm, Dry, normal turgor, no rashes or lesions noted. ED Treatment Course - LABORATORY CBC & Chemistry Diagram: 03/22/17 17:30 03/22/17 20:16 - ADDITIONAL ORDERS Additional order review: Laboratory Results 03/22/17 03/22/17 03/22/17 17:30 17:30 17:30 PT with INR INR PTT (Actin FS) VBG pH POC VBG pCO2 POC VBG pO2 Mixed VBG HCO3 Sodium 132 L Potassium 6.0 H Chloride 99 Carbon Dioxide 22 Anion Gap 11 BUN 26 H D Creatinine 6.7 H Creat Clearance w eGFR 6.22 Random Glucose 174 H Lactic Acid 1.5 Calcium 8.3 L Total Bilirubin 0.7 AST 20 ALT 25 Alkaline Phosphatase 71 Creatine Kinase 68 Troponin I < 0.02 Total Protein 8.5 H Albumin 3.6 Blood Type A POSITIVE Antibody Screen Negative 03/22/17 03/22/17 17:30 17:21 PT with INR 10.40 INR 0.92 PTT (Actin FS) 30.4 VBG pH 7.37 POC VBG pCO2 42.3 POC VBG pO2 30.0 Mixed VBG HCO3 24.0 Sodium Potassium Chloride Carbon Dioxide Anion Gap BUN Creatinine Creat Clearance w eGFR Random Glucose Lactic Acid Calcium Total Bilirubin AST ALT Alkaline Phosphatase Creatine Kinase Troponin I Total Protein Albumin Blood Type Antibody Screen 03/22/17 17:30 RBC 4.20 MCV 93.5 MCHC 32.3 RDW 16.5 H MPV 8.2 Neutrophils % 71.5 D Lymphocytes % 14.1 D Monocytes % 5.7 Eosinophils % 7.5 H Basophils % 1.2 - RADIOLOGY Radiology Studies Ordered: Category Date Time Status ABDOMEN & PELVIS CT W/O CONTR [CT] Stat CT Scan 03/22/17 19:42 Ordered CHEST X-RAY PORTABLE* [RAD] Stat Radiology 03/22/17 16:50 Taken - Medications Given in the ED: ED Medications Discontinued Medications Generic Name Dose Route Start Last Admin Trade Name Freq PRN Reason Stop Dose Admin Famotidine/Sodium Chloride 20 mg in 50 mls @ 100 mls/hr 03/22/17 17:10 18:07 Pepcid 20 Mg Premixed Ivpb - IVPB 03/22/17 17:39 100 mls/hr ONCE ONE Administration Ondansetron HCl 4 mg 03/22/17 17:08 03/22/17 18:07 Zofran Injection IVPUSH 03/22/17 17:09 4 mg ONCE ONE Administration Medical Decision Making - Medical Decision Making 03/22/17 19:58 Patient is a 66F with history of HTN, HLD, TIA (several in the past 2 months), CVA, DM, ESRD (HD T,,S), kidney transplant 2007 here today complaining of altered mental status. Vital signs notable for SBP of about 220. Patient holding arm flexed during measurement. Redraw shows BP still in 220s. Will treat with 5 of labetalol. Broad workup initated, including CBC, CMP, Blood cultures, cxr, head ct, lactate. Patient does not make urine, no ua/uc. 03/22/17 20:00 Laboratory Tests 03/22/17 03/22/17 03/22/17 17:21 17:30 17:30 WBC 9.0 D Hgb 12.7 Hct 39.3 Plt Count 195 D VBG pH 7.37 Potassium 6.0 H BUN 26 H D Creatinine 6.7 H Lactic Acid Troponin I < 0.02 03/22/17 17:30 WBC Hgb Hct Plt Count VBG pH Potassium BUN Creatinine Lactic Acid 1.5 Troponin I CMP hemolyzed. K not 6.0. CBC normal. CMP shows kidney dysfunction, no gap. Lactate and trop neg. Head CT shows no acute process. 03/22/17 20:03 CXR shows possible small amount of fluid overload. Will admit for ams. 03/22/17 23:56 K 6.3, given insulin and d50. *DC/Admit/Observation/Transfer Diagnosis at time of Disposition: Altered mental status, Nausea & vomiting, Hypertensive urgency - Discharge Dispostion Condition at time of disposition: Fair - Referrals - Patient Instructions - Post Discharge Activity
[2017-03-22] MEDS ORDERED: LABETALOL HCL 5 MG/1 ML (200MG/40ML VIAL) IVPB ONE (20:22)
--- NOTE | 2017-03-22 20:27 | HP ---
CHIEF COMPLAINT: confusion, N/V PCP:Loren Bradley HISTORY OF PRESENT ILLNESS: Patient is a 66 yo F with a PMHx of HTN, HLD, TIA (last 2 months ago,no deficits ), CVA, DM, ESRD (HD ,,S), kidney transplant 2006, presented to Ed with confusion, N/V. last seen on her base line today morning around 9 am, after that she start being confused, non well responding, lethargic fatigue, with non bloody non bilious vomiting. the call ambulance about 3 pm. family reports her mental status has been fluctuation last few weeks , they denies any fever, chills , diarrhea, constipation chest pain , abdominal pain but they reports she was yawning . ROS was obtained from the family, they don't live with her and they don't know much about her, she had an nursing assoc came 5 hours aday 5times a week. ER course was notable for: (1) Head CT negative (2)CXR negative for acute process (3)BP 216/101, K 6, NA 132, BUN/Cr 26/6.7, Glu 174, LA 1.5 Recent Travel:denies PAST MEDICAL HISTORY: HTN, HLD, TIA , CVA, DM, ESRD (HD ,,S), kidney transplant 2006 PAST SURGICAL HISTORY: appendectomy, kidney transplant 2006 Social History: Smokin/2 PPD for 5 year when she was teenage Alcohol:denies Drugs: denies Family History: Allergies codeine Allergy (Verified 10/31/16 10:47) promethazine HCl [From Phenergan] Allergy (Verified 10/31/16 10:47) ANAPHYLAXIS HOME MEDICATIONS: Home Medications Medication Instructions Recorded Atorvastatin Ca [Lipitor] 20 mg PO HS 11/12/15 Pantoprazole Sodium [Protonix] 20 mg PO DAILY 11/12/15 Levetiracetam [Keppra -] 250 mg PO BID 30 Days tablet 11/16/15 Metoprolol Tartrate [Lopressor -] 50 mg PO BID #60 tablet 11/17/15 Calcium Acetate [Phoslo -] 667 mg PO TIDCM 12/01/15 Clopidogrel Bisulfate [Plavix -] 75 mg PO DAILY tablet 11/03/16 Amlodipine Besylate [Norvasc -] 10 mg PO DAILY #30 tablet 01/20/17 REVIEW OF SYSTEMS CONSTITUTIONAL: Absent: fever, chills, diaphoresis, generalized weakness, malaise, loss of appetite, weight change HEENT: Absent: rhinorrhea, nasal congestion, throat pain, throat swelling, difficulty swallowing, mouth swelling, ear pain, eye pain, visual changes CARDIOVASCULAR: Absent: chest pain, syncope, palpitations, irregular heart rate, lightheadedness , peripheral edema RESPIRATORY: Absent: cough, shortness of breath, dyspnea with exertion, orthopnea, wheezing, stridor, hemoptysis GASTROINTESTINAL: Absent: abdominal pain, abdominal distension, nausea, vomiting, diarrhea, constipation, melena, hematochezia GENITOURINARY: Absent: dysuria, frequency, urgency, hesitancy, hematuria, flank pain, genital pain, not making urine MUSCULOSKELETAL: Absent: myalgia, arthralgia, joint swelling, back pain, neck pain SKIN: Absent: rash, itching, pallor HEMATOLOGIC/IMMUNOLOGIC: Absent: easy bleeding, easy bruising, lymphadenopathy, frequent infections ENDOCRINE: Absent: unexplained weight gain, unexplained weight loss, heat intolerance, cold intolerance NEUROLOGIC: Absent: headache, focal weakness or paresthesias, dizziness, unsteady gait, seizure, mental status changes, bladder or bowel incontinence PSYCHIATRIC: Absent: anxiety, depression, suicidal or homicidal ideation, hallucinations. PHYSICAL EXAMINATION Vital Signs - 24 hr 03/22/17 03/22/17 16:49 17:00 Temperature 98.2 F 98.9 F Pulse Rate 85 Respiratory 16 Rate Blood Pressure 216/101 O2 Sat by Pulse 100 Oximetry (%) GENERAL: lethargic, response to physical stimuli only HEAD: Normal with no signs of trauma. EYES: Pupils equal, round and reactive to light, sclera icteric, conjunctiva clear. EARS, NOSE, THROAT: moist mucous membranes. NECK: supple without lymphadenopathy, LUNGS: tachypnech, Breath sounds equal, clear to auscultation bilaterally. No wheezes, and no crackles. No accessory muscle use. HEART: Regular rate and rhythm, normal S1 and S2 without murmur, rub or gallop. ABDOMEN: Soft, nontender, not distended, normoactive bowel sounds, no guarding, no rebound, LOWER EXTREMITIES: 2+ pulses, warm, well-perfused. No calf tenderness. No peripheral edema. NEUROLOGICAL: response only to physical stimuli Laboratory Results - last 24 hr 03/22/17 03/22/17 03/22/17 17:21 17:30 17:30 WBC 9.0 D RBC 4.20 Hgb 12.7 Hct 39.3 MCV 93.5 MCH 30.2 MCHC 32.3 RDW 16.5 H Plt Count 195 D MPV 8.2 Neutrophils % 71.5 D Lymphocytes % 14.1 D Monocytes % 5.7 Eosinophils % 7.5 H Basophils % 1.2 PT with INR 10.40 INR 0.92 PTT (Actin FS) 30.4 VBG pH 7.37 POC VBG pCO2 42.3 POC VBG pO2 30.0 Mixed VBG HCO3 24.0 Sodium Potassium Chloride Carbon Dioxide Anion Gap BUN Creatinine Creat Clearance w eGFR Random Glucose Lactic Acid Calcium Total Bilirubin AST ALT Alkaline Phosphatase Creatine Kinase Troponin I Total Protein Albumin Blood Type Antibody Screen 03/22/17 03/22/17 03/22/17 17:30 17:30 17:30 WBC RBC Hgb Hct MCV MCH MCHC RDW Plt Count MPV Neutrophils % Lymphocytes % Monocytes % Eosinophils % Basophils % PT with INR INR PTT (Actin FS) VBG pH POC VBG pCO2 POC VBG pO2 Mixed VBG HCO3 Sodium 132 L Potassium 6.0 H Chloride 99 Carbon Dioxide 22 Anion Gap 11 BUN 26 H D Creatinine 6.7 H Creat Clearance w eGFR 6.22 Random Glucose 174 H Lactic Acid 1.5 Calcium 8.3 L Total Bilirubin 0.7 AST 20 ALT 25 Alkaline Phosphatase 71 Creatine Kinase 68 Troponin I < 0.02 Total Protein 8.5 H Albumin 3.6 Blood Type A POSITIVE Antibody Screen Negative CBC & Chemistry Diagram: 03/22/17 17:30 03/22/17 17:30 CBC, BMP 03/22/17 17:30 March, Abdomen/pelvic CT No definite CT findings of acute pathology are identified. In comparison to a prior CT exam of 03/27/2011 interval development of marked atrophy is seen involving a renal transplant within the right upper pelvis. The remainder of the exam demonstrates no obvious interval change. Marked atrophy of the [place] kidneys bilaterally. Extensive atherosclerotic vascular calcifications. Possible punctate gallbladder calculus without CT evidence of acute cholecystitis. Partial imaging of cardiomegaly. _ March, Head CT No definite interval change is identified in comparison to a previous CT exam of 02/23/2017. Chronic left occipital cortical infarct. Punctate chronic right cerebellar infarct. Moderate periventricular and subcortical chronic microvascular ischemic changes. Small to moderate amount of left mastoid fluid accumulation. EKG: sinus at 90, nl axis, nl interval, hyperacute t waves, no acute changes ASSESSMENT/PLAN: Patient is a 66 yo F with a PMHx of HTN, HLD, TIA , CVA, DM, ESRD (HD ,,), kidney transplant 2006, presented with one day history of AMS, N/V, was also found to have HTN urgency in ED and was admitted to obs for further evaluation and treatment # AMS liekly 2/2 HTN urgency vs ESRD vs electrolytes abnormality * Drop BP with IV labetolol to 170/87 * HD in AM * Consult neurology * repeat CBC, CMP in AM * Blood Cx * CXR negative for acute process * Head CT scan no changes compare to last CT on 02/23/17 * abdomen /pelvic CT pending reading * Lactic acid # H/O multiple TIA/VCA * Head CT: unremarkable for acute intracranial pathology , same compare to last one in 02/23/17 * NARESH 10/02: Mild MR, trace TR, Moderate * Carotid Doppler 01/02: moderate atherosclerotic dz * Cont Atorvastatin 20mg * Neurology Consulted (Dr. Palmer) * Consider speech/swallow eval when mentally improved * Keppra 500mg, obtain medication list * # HTN urgency * BP 216/101 on admission * Labetolol 5 mg IVpush given in ED * BP improved to 170/78 * continue home meds (Amlodipine 10mg ,Lopressor 50mg) * obtain med list * Monitor BP closely # CKD * On HD ,, * consult nephrology * HD tomorrow AM # DM, * non compliant with her meds * ISS * BGM Q4hr * diabetic diet #Hyperkalemia, Hyponatremia * secondary to ESRD, vs low oral intake * K: 6 , Na 132 * repeat cmp in AM * NS @ 100 cc/hr # FEN * F: NS @ 100 CC/hr * E: Hyperkalemia, hypopnatremia om HD, repeat CMP in AM * N: NPO , for now due to AMS except meds # Proph * DVT: SCDS both legs , on plavix 75 , ASA held in last visit * GI: continue protonix 20 # Dispo * admit to obs * verify home meds * consider parenteral meds Visit type - Emergency Visit Emergency Visit: Yes ED Registration Date: 03/23/17 Care time: The patient presented to the Emergency Department on the above date and was hospitalized for further evaluation of their emergent condition. - New Patient This patient is new to me today: Yes Date on this admission: 03/23/17 - Critical Care Critical Care patient: No
[2017-03-22] MEDS ORDERED: ONDANSETRON 4 MG/2 ML VIAL IVPUSH PRN (21:16)
[2017-03-22 21:20] LABS: ALBUMIN 3.4 g/dl (3.4-5.0); ANION GAP 9 (8-16); BLOOD UREA NITROGEN 30 mg/dL (7-18); CALCIUM 8.1 mg/dL (8.5-10.1); CHLORIDE 99 mmol/L (98-107); CO2 22 mmol/L (21-32); CREATININE 7.1 mg/dL (0.55-1.02); GLUCOSE,RANDOM 226 mg/dL (74-106); SGOT/AST 15 U/L (15-37); SGPT/ALT 23 U/L (12-78); SODIUM 130 mmol/L (136-145)
[2017-03-22 21:22] LABS: ALK PHOS 71 U/L (45-117); BILIRUBIN,TOTAL 0.7 mg/dL (0.2-1.0); TOT PROT 8.1 g/dl (6.4-8.2)
[2017-03-22] MEDS ORDERED: DEXTROSE 5%-NORMAL SALINE 1,000 ML IV SCH (21:30)
[2017-03-22 21:32] LABS: POTASSIUM 6.3 mmol/L (3.5-5.1)
[2017-03-22] MEDS ORDERED: levETIRAcetam 250 MG TABLET (FP) PO SCH (22:00)
[2017-03-22] MEDS ORDERED: ATORVASTATIN CA 20 MG TABLET (FP) PO SCH (22:00)
[2017-03-22] MEDS ORDERED: INSULIN SLIDING SCALE (NOVOLOG) 1 VIAL SQ SCH (22:00)
[2017-03-22] MEDS ORDERED: LABETALOL HCL 5 MG/1 ML (100MG/20 ML VIAL) IVPUSH PRN (22:13)
--- NOTE | 2017-03-22 22:19 | PN ---
Teaching Attending Note Name of Resident: Erich Crawford ATTENDING PHYSICIAN STATEMENT I saw and evaluated the patient. I reviewed the resident's note and discussed the case with the resident. I agree with the resident's findings and plan as documented. SUBJECTIVE:HPI by son present at bedside 66yo M with PMH HTN, HLD, TIA (last 2 months ago,no deficits), CVA, DM, ESRD ( HD T,,S), kidney transplant 2006 brought to Er with AMS. as per son she was last seen well at 0900 this AM. since then mental status continued to deteriorate then developed profuse bilious vomiting. As per them mental status has been fluctuating over the past week. have also noticed that she is not taking all her medications, often see many pills in the pill boxes. no reports of seizure activity. 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 at baseline she is A&Ox3, ambulates with RW , performs her own ADL's. Does not make urine. no recent changes to medications since last hospitalization. has not been able to f/u [facility] PMD or neurologist since last seen did receive full HD session yesterday. tolerated well OBJECTIVE: Last Vital Signs Temp Pulse Resp BP Pulse Ox 98.9 F 90 16 167/70 98 03/22/17 17:00 03/22/17 20:43 03/22/17 20:43 03/22/17 21:00 03/22/17 20:43 General lethargic, responsive to painful stimuli HEENT PERR, neck supple, negative meningeal signs CV S1 S2 RRR no murmur/rub/gallop Lungs CTA B/L anteriorly Abdomen soft NT/ND obese normoactive BS Extremities no pedal edema, LUE AV fistula with +thrill ASSESSMENT AND PLAN: 66 yo F with a PMHx of HTN, HLD, TIA (last 2 months ago,no deficits), seizures, CVA, DM, ESRD (HD ,,S), kidney transplant 2006 brought to the Er for AMS 1. HTN urgency- likely due to non-compliance. tele observation. received labetolol 5mg IVP with good affect. will cont lopressor IVP as needed to maintain SBP < 170. will be unable to take medications po due to poor mental status 2. Acute metabolic encephalopathy- possible unwitnessed seizure vs TIA vs HTN urgency vs abdominal pathology. no signs of infection. NPO for now. Head CT negative for acute pathology, RPR last year was negative. TSH WNL. consider Brain MRI if mental status does not improve. Neurology consulted. frequent neurochecks. elevate HOB, aspiration precautions 3. Hyperkalemia- perstent on repeat read. 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 will give insulin and D50. will repeat 4. Nausea and vomiting- can be due to HTN urgency. no abdominal pain on exam. CT abdomen/pelvis pending 5. Hyponatremia- likely dehydration. give IVF. trend. unlikely to explain current mental status 6. DM- check A1c. BGM Q6H. iss 7. TIA- on plaivx. asa held last admission 8. seizures- on keppra 9. ESRD on HD- s/p renal transplant that failed. does not appear uremic. nephrology for continued HD 10. DVT ppx- scd
[2017-03-22 22:37] LABS: PHOSPHOROUS 4.2 mg/dL (2.5-4.9)
[2017-03-22] MEDS ORDERED: DEXTROSE 50%-WATER 25 GM/50 ML DISP.SYRIN ONE (22:45)
[2017-03-22] MEDS ORDERED: INSULIN REGULAR HUMAN 100 UNITS/ML *VIAL ONE (22:55)
[2017-03-22] MEDS: INSULIN SLIDING SCALE (NOVOLOG) 1 VIAL SQ SCH (23:02)
[2017-03-22] MEDS ORDERED: METOPROLOL TARTRATE 50 MG TABLET (FP) ONE (23:12)
[2017-03-22] MEDS ORDERED: ATORVASTATIN CA 40 MG TABLET (FP) ONE (23:15)
[2017-03-22] MEDS ORDERED: levETIRAcetam 500 MG/5 ML INJECTION VIAL IVPB ONE (23:15)
[2017-03-23] MEDS ORDERED: HEPARIN NA (PORCINE) 5,000 UNITS/ML 1ML VIAL SQ SCH (02:00)
[2017-03-23 02:09] LABS: ANION GAP 14 (8-16); BLOOD UREA NITROGEN 32 mg/dL (7-18); CALCIUM 8.2 mg/dL (8.5-10.1); CHLORIDE 98 mmol/L (98-107); CO2 22 mmol/L (21-32); GLUCOSE,RANDOM 253 mg/dL (74-106); POTASSIUM 5.8 mmol/L (3.5-5.1); SODIUM 134 mmol/L (136-145)
[2017-03-23 02:25] VITALS: BMI 27.8
[2017-03-23 02:25] LABS: CREATININE 7.7 mg/dL (0.55-1.02)
[2017-03-23] MEDS ORDERED: levETIRAcetam 500 MG/5 ML INJECTION VIAL IVPB ONE (02:43)
[2017-03-23] MEDS: levETIRAcetam 500 MG/5 ML INJECTION VIAL IVPB SCH ×2 (03:00→11:16)
[2017-03-23] MEDS: SODIUM CHLORIDE 1,000 ML IV SCH ×2 (03:00→23:05)
[2017-03-23] MEDS: METOPROLOL TARTRATE 50 MG TABLET (FP) PO SCH ×2 (04:05→11:16)
[2017-03-23] MEDS: INSULIN SLIDING SCALE (NOVOLOG) 1 VIAL SQ SCH ×4 (06:27→23:14)
[2017-03-23 06:56] LABS: BASO % 1.3 % (0-2.0); EOS % 0.7 % (0-4.5); HEMATOCRIT 35.4 % (32.4-45.2); LYMPH % 18.3 % (8-40); MCH 29.4 pg (25.7-33.7); MCHC 31.2 g/dl (32.0-36.0); MEAN CELL VOLUME 94.3 fl (80-96); MEAN PLT VOLUME 8.4 fl (7.5-11.1); MONO % 11.5 % (3.8-10.2); NEUT % 68.2 % (42.8-82.8); PLATELET COUNT 167 K/MM3 (134-434); RBC 3.76 M/mm3 (3.60-5.2); RDW 15.7 % (11.6-15.6); WHITE BLOOD COUNT 8.8 K/mm3 (4.0-10.0)
[2017-03-23 07:08] LABS: ANION GAP 12 (8-16); BLOOD UREA NITROGEN 33 mg/dL (7-18); CALCIUM 8.1 mg/dL (8.5-10.1); CHLORIDE 99 mmol/L (98-107); CO2 25 mmol/L (21-32); GLUCOSE,RANDOM 100 mg/dL (74-106); POTASSIUM 5.3 mmol/L (3.5-5.1); SGOT/AST 13 U/L (15-37); SGPT/ALT 18 U/L (12-78); SODIUM 136 mmol/L (136-145)
[2017-03-23 07:16] LABS: ALK PHOS 59 U/L (45-117); BILIRUBIN,TOTAL 0.5 mg/dL (0.2-1.0); TOT PROT 7.2 g/dl (6.4-8.2)
[2017-03-23] MEDS ORDERED: amLODIPine BESYLATE 10 MG TABLET (FP) PO SCH (10:00)
[2017-03-23] MEDS ORDERED: CLOPIDOGREL BISULFATE 75 MG TABLET (FP) PO SCH (10:00)
[2017-03-23] MEDS ORDERED: PANTOPRAZOLE 20 MG TABLET (FP) PO SCH (10:00)
[2017-03-23] MEDS ORDERED: VANCOMYCIN 500 MG/100 ML PRE-DOCKED IVPB ONE (10:06)
[2017-03-23] MEDS ORDERED: VANCOMYCIN 500 MG in DEXTROSE 5%-WATER - 100 ML IVPB ONE (10:15)
--- NOTE | 2017-03-23 10:22 | CON.NEP ---
Consult Consult Specialty:: Nephrology Referred by:: Dr. Walker Reason for Consultation:: ESRD on HD - History of Present Illness Chief Complaint: AMS History of Present Illness: This is a 66 year old woman with PMhx of ESRD on HD, Hypertension, CVA/TIA, Hx of Renal Transplant now back on dialysis who presented with AMS that was progressively worsening. Pt is very lethargic and not able to provide history. 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: CVA, Dementia, TIA Cardio/Vascular: Yes: HTN, Hyperlipdemia Gastrointestinal: Yes: Other Renal/: Yes: Renal Failure (on HD (TTS)), Hemodialysis, Other (s/p DDRT 2006) ...: No Endocrine: Yes: Diabetes Mellitus - Past Surgical History Past Surgical History: Yes: Appendectomy, , Hysterectomy, Kidney Transplant (2006 DDKT) - Alcohol/Substance Use Hx Alcohol Use: No - Smoking History Smoking history: Unknown if ever smoked Have you smoked in the past 12 months: No Aproximately how many cigarettes per day: 0 - Social History Usual Living Arrangement: With Significant Other ADL: Independent History of Recent Travel: No (traveled to [place] in August 2013) Home Medications - Allergies Allergies/Adverse Reactions: Allergies Allergy/AdvReac Type Severity Reaction Status Date / Time codeine Allergy Verified 10/31/16 10:47 promethazine HCl Allergy Verified 10/31/16 10:47 [From Phenergan] - Home Medications Home Medications: Ambulatory Orders Atorvastatin Ca [Lipitor] 20 mg PO HS 11/12/15 Pantoprazole Sodium [Protonix] 20 mg PO DAILY 11/12/15 Levetiracetam [Keppra -] 250 mg PO BID 30 Days tablet 11/16/15 Metoprolol Tartrate [Lopressor -] 50 mg PO BID #60 tablet 11/17/15 Calcium Acetate [Phoslo -] 667 mg PO TIDCM 12/01/15 Clopidogrel Bisulfate [Plavix -] 75 mg PO DAILY tablet 11/03/16 Amlodipine Besylate [Norvasc -] 10 mg PO DAILY #30 tablet 01/20/17 Family Disease History - Family Disease History Family Disease History: Diabetes: Mother, Brother, Sister Nephrology Consult - Height Height: 5 ft 3 in - Weight Weight: 71.305 kg - BMI Body Mass Index (BMI): 27.8 - Lab Results CBC,BMP: CBC, BMP 03/23/17 06:05 03/23/17 06:05 Anion Gap: Anion Gap Anion Gap 12 (8-16) 03/23/17 06:05 - Physical Examination Vital Signs: Vital Signs Temperature 97.9 F 03/23/17 05:16 Pulse Rate 76 03/23/17 05:16 Respiratory Rate 20 03/23/17 05:16 Blood Pressure 126/66 03/23/17 05:16 O2 Sat by Pulse Oximetry (%) 96 03/23/17 04:00 Assessment/Plan 66 year old woman with PMhx of ESRD on HD, Hypertension, CVA/TIA, Hx of Renal Transplant now back on dialysis who presented with AMS that was progressively worsening. #AMS etiology uncertin CT head w/o obvious new CVA Check Blood and urine cultures Emperic Abx for now Neurology consult NPO for now #ESRD on Dialysis for dialysis today as inpatient dose all meds for intermittent HD #Lactic acidosis on IVF, will decrease rate BP better trend lactic acid #Hypertension continue PRN IV labetalol if BP not controlled can given IV Enalapril (would given only after dialysis given mildly elevated K) Thank you Full consult to follow Nicolas Campoverde DO
--- NOTE | 2017-03-23 10:26 | CON.CARD ---
Consult Consult Specialty:: Cardiology Referred by:: Hospitalist Reason for Consultation:: HTN urgency - History of Present Illness Chief Complaint: AMS History of Present Illness: 66 year old woman with a history of HTN, HLD, CAD, valvular heart disease, Renal transplant 2006, ESRD on HD, CVAs/TIAs, multiple admissions for AMS pt was started on ASA in addition to her chronic plavix therapy on 11/17/15 based on spontaneous echo contrast that was seen on NARESH (not thrombus) and in the setting of prior CVA again admitted with AMS. Pt seen and examined today, groaning, but not purposefully responding. not following commands. NAD. No reported complaints of chest pain, sob, palpitations. 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 Cardio/Vascular: Yes: HTN, Hyperlipdemia Gastrointestinal: Yes: Other Renal/: Yes: Renal Failure (on HD (TTS)), Hemodialysis, Other (s/p DDRT 2006) ...: No Endocrine: Yes: Diabetes Mellitus - Past Surgical History Past Surgical History: Yes: Appendectomy, , Hysterectomy, Kidney Transplant (2006 DDKT) - Alcohol/Substance Use Hx Alcohol Use: No - Smoking History Smoking history: Unknown if ever smoked Have you smoked in the past 12 months: No Aproximately how many cigarettes per day: 0 - Social History Usual Living Arrangement: With Significant Other ADL: Independent History of Recent Travel: No (traveled to [place] in August 2013) Home Medications - Allergies Allergies/Adverse Reactions: Allergies Allergy/AdvReac Type Severity Reaction Status Date / Time codeine Allergy Verified 10/31/16 10:47 promethazine HCl Allergy Verified 10/31/16 10:47 [From Phenergan] - Home Medications Home Medications: Ambulatory Orders Atorvastatin Ca [Lipitor] 20 mg PO HS 11/12/15 Pantoprazole Sodium [Protonix] 20 mg PO DAILY 11/12/15 Levetiracetam [Keppra -] 250 mg PO BID 30 Days tablet 11/16/15 Metoprolol Tartrate [Lopressor -] 50 mg PO BID #60 tablet 11/17/15 Calcium Acetate [Phoslo -] 667 mg PO TIDCM 12/01/15 Clopidogrel Bisulfate [Plavix -] 75 mg PO DAILY tablet 11/03/16 Amlodipine Besylate [Norvasc -] 10 mg PO DAILY #30 tablet 01/20/17 Family Disease History - Family Disease History Family Disease History: Diabetes: Mother, Brother, Sister Review of Systems - Review of Systems Constitutional: reports: Lethargy. denies: No Symptoms, Chills, Diaphoresis, Fever, Loss of Appetite, Malaise, Night Sweats, Unintentional Wgt. Loss, Weakness, Other Eyes: denies: No Symptoms, Blind Spots, Blurred Vision, Double Vision, Eye Pain , Floaters, Photophobia, Recent Change in Vision, Other HENT: denies: No Symptoms, Difficult Swallowing, Ear Discharge, Ear Pain, Epistaxis, Gingival Bleeding, Hearing Loss, Mouth Swelling, Nasal Congestion, Ocular Prosthesis, Throat Pain, Toothache, Ringing in Ears, Other Neck: denies: No Symptoms, Decreased ROM, Lumps, Pain on Movement, Stiffness, Swollen Glands, Tenderness, Other Cardiovascular: denies: No Symptoms, Chest Pain, Edema, Palpitations, Shortness of Breath, Other Respiratory: denies: No Symptoms, Cough, Exercise Intolerance, Hemoptysis, Orthopnea, PND, Snoring, SOB, SOB on Exertion, Wheezing, Other Gastrointestinal: reports: Vomiting. denies: No Symptoms, Abdominal Pain, Bloating, Constipation, Diarrhea, Dysphagia, Indigestion, Melena, Nausea, Rectal Bleeding, Vomiting Blood, Other Genitourinary: denies: No Symptoms, Burning, Discharge, Dysuria, Flank Pain, Frequency, Hematuria, Incontinence, Lesions, Menses, Pain, Testicular Mass, Testicular Pain, Testicular Swelling, Urgency, Vaginal Bleeding, Other Breasts: denies: No Symptoms Reported, See HPI, Breast Implants, Discharge from Nipple, Lumps, Pain, Skin Changes, Other Musculoskeletal: denies: No Symptoms, Back Pain, Crepitus, Decreased ROM, Extremity Pain, Joint Pain, Joint Swelling, Muscle Pain, Muscle Cramps, Muscle Weakness, Other Integumentary: denies: No Symptoms, Blister, Bruising, Change in Color, Eczema, Erythema, Incision, Lesions, Lump, Pallor, Pruritis, Rash, Wound, Other Neurological: reports: Change in LOC, Confusion, Pre-Existing Deficit. denies: No Symptoms, Change in Speech, Dizziness, Headache, Incoordination, Numbness, Parasthesia, Seizure, Syncope, Tremors, Unsteady Gait, Weakness, Other Endocrine: denies: No Symptoms, Excessive Sweating, Flushing, Increased Hunger, Increased Thirst, Intolerance to Cold, Intolerance to Heat, Unexplained Weight Gain, Unexplained Weight Loss, Other Hematology/Lymphatic: denies: No Symptoms, Easily Bruised, Excessive Bleeding, Swollen Glands, Other Psychiatric: denies: No Symptoms, Altered Sleep Pattern, Anxiety, Depression, Hallucinations, Panic, Paranoia, Suicidal, Other - Risk Factors Known Risk Factors: Yes: Hypercholesterolemia, Hypertension Vital Signs: Vital Signs Temperature 97.9 F 03/23/17 05:16 Pulse Rate 76 03/23/17 05:16 Respiratory Rate 20 03/23/17 05:16 Blood Pressure 126/66 03/23/17 05:16 O2 Sat by Pulse Oximetry (%) 96 03/23/17 04:00 Constitutional: Yes: Other (minimally responsive) Eyes: Yes: Conjunctiva Clear Respiratory: Yes: Regular, CTA Bilaterally. No: Rales, Rhonchi, Wheezes Gastrointestinal: Yes: Normal Bowel Sounds, Soft. No: Distention, Tenderness Cardiovascular: Yes: Regular Rate and Rhythm. No: Bradycardia, Tachycardia, Pulse Irregular, Gallop, Rub, Varicosities JVD: No Carotid Bruit: No PMI: Non-Displaced Heart Sounds: Yes: S1, S2. No: Split S2, S3, S4, Clicks, Gallop, Rub, Bruit Murmur: Yes: Diastolic Murmur, Grade 3 Extremities: Yes: WNL Edema: No Peripheral Pulses WNL: Yes Neurological: Yes: Unresponsive (groaning, not following commands). No: Alert, Oriented Psychiatric: No: Alert, Oriented - Other Data Labs, Other Data: CBC, BMP 03/23/17 06:05 03/23/17 06:05 INR, PTT INR 0.92 (0.82-1.09) 03/22/17 17:30 Troponin, BNP 03/22/17 17:30 Troponin I < 0.02 Troponin, BNP 03/22/17 17:30 Troponin I < 0.02 ekg-nsr 90bpm, no sig st abnl Echo: Report Reviewed Imaging - Results Chest X-ray: Report Reviewed, Image Reviewed EKG: Report Reviewed, Image Reviewed Other: Report Reviewed, Image Reviewed (tele-nsr, no events recorded) Assessment/Plan 66 year old woman with a history of HTN, HLD, CAD, valvular heart disease, Renal transplant 2006, ESRD on HD, CVAs/TIAs, multiple admissions for AMS pt was started on ASA in addition to her chronic plavix therapy on 11/17/15 based on spontaneous echo contrast that was seen on NARESH (not thrombus) and in the setting of prior CVA again admitted with AMS. HTN-severely uncontrolled on presentation, adequately controlled currently -if pt taking po (currently NPO) resume home meds -for now can cont with prn Labetalol -likely needs to stay on tele to allow for prn IV HTN meds, once tolerating po can likely go off tele AMS/weakness-unclear etiology, multiple prior admissions with similar presentation -neurology to evaluate -full work up completed in past for cardiac source of embolism -NARESH was done 09/2015 to evaluate valvular abnormality and was felt to not be endocarditis or mass on MV but more likely a ruptured chordae therefore unlikely to be responsible for CVA -tele and ekgs on prior admissions have shown NSR, no arrhythmia -no events on tele on this admission so far Valvular heart disease-stable -can repeat echo to re-evaluate CAD-stable -outpatient follow up
[2017-03-23] MEDS: ACETAMINOPHEN 1000 MG/100 ML VIAL (NON FORMULARY) IVPB PRN ×2 (10:45→17:53)
[2017-03-23] MEDS: CALCIUM ACETATE 667 MG CAPSULE (FP) PO SCH ×2 (11:16→11:19)
[2017-03-23] MEDS: PANTOPRAZOLE SODIUM 40 MG VIAL IVPB SCH (11:17)
--- NOTE | 2017-03-23 12:29 | EKG ---
Test Reason : Blood Pressure : / mmHG Vent. Rate : 090 BPM Atrial Rate : 090 BPM P-R Int : 186 ms QRS Dur : 096 ms QT Int : 390 ms P-R-T Axes : 052 056 075 degrees QTc Int : 477 ms NORMAL SINUS RHYTHM NORMAL ECG WHEN COMPARED WITH ECG OF 23-FEB-2017 19:29, NO SIGNIFICANT CHANGE WAS FOUND Confirmed by CARLI JIMENEZ MD ([id number]) on 03/23/2017 12:29:27 PM Referred By: Confirmed By:CARLI JIMENEZ MD
--- NOTE | 2017-03-23 12:29 | EKG ---
Test Reason : Blood Pressure : / mmHG Vent. Rate : 093 BPM Atrial Rate : 093 BPM P-R Int : 180 ms QRS Dur : 098 ms QT Int : 404 ms P-R-T Axes : 068 066 083 degrees QTc Int : 502 ms NORMAL SINUS RHYTHM PROLONGED QT ABNORMAL ECG WHEN COMPARED WITH ECG OF 22-MAR-2017 19:30, NO SIGNIFICANT CHANGE WAS FOUND Confirmed by CARLI JIMENEZ MD ([id number]) on 03/23/2017 12:29:07 PM Referred By: Confirmed By:CARLI JIMENEZ MD
[2017-03-23] MEDS ORDERED: METOPROLOL TARTRATE 5 MG/5 ML VIAL IVPUSH PRN ×2 (12:51→17:57)
[2017-03-23] MEDS ORDERED: THIAMINE HCL 200 MG/2 ML VIAL IVPB SCH (13:00)
[2017-03-23] MEDS ORDERED: LEVETIRACETAM INJECTION 500 MG in DEXTROSE 5%-WATER - 100 ML IVPB SCH (13:15)
[2017-03-23] MEDS ORDERED: DEXTROSE 5% IM ONE (14:00)
[2017-03-23] MEDS ORDERED: THIAMINE HCL IM ONE (14:00)
[2017-03-23] MEDS ORDERED: WATER IM ONE (14:00)
[2017-03-23] MEDS: CEFTRIAXONE 1 G/50 ML PREMIX 50 ML IVPB SCH (15:00)
[2017-03-23 15:13] LABS: ANION GAP 11 (8-16); BLOOD UREA NITROGEN 31 mg/dL (7-18); CALCIUM 7.8 mg/dL (8.5-10.1); CHLORIDE 102 mmol/L (98-107); CO2 23 mmol/L (21-32); CREATININE 7.2 mg/dL (0.55-1.02); GLUCOSE,RANDOM 175 mg/dL (74-106); POTASSIUM 5.3 mmol/L (3.5-5.1); SODIUM 136 mmol/L (136-145)
--- NOTE | 2017-03-23 16:27 | PN ---
Physical Exam: SUBJECTIVE: Patient seen and examined Pt unresponsive to verbal or physical stimuli, and she makes grunting noises. OBJECTIVE: Vital Signs Period Temp Pulse Resp BP Sys/Travis Pulse Ox Last 24 Hr 97.9 F-101 F 76-114 16-20 106-216/56-101 96-100 GENERAL: elderly female, lying in bed curled up, unresponsive but awake HEENT: AT, NC, [place] NECK: Trachea midline, full range of motion, supple. LUNGS: Breath sounds equal, clear to auscultation bilaterally, no wheezes, no crackles, no accessory muscle use. HEART: Regular rate and rhythm, S1, S2 without murmur, rub or gallop. ABDOMEN: Soft, nontender, nondistended, normoactive bowel sounds, no guarding, no rebound, no hepatosplenomegaly, no masses. EXTREMITIES: 2+ pulses, warm, well-perfused, no edema. NEUROLOGICAL: unable to fully assess Laboratory Results - last 24 hr 03/22/17 03/22/17 03/22/17 17:21 17:30 17:30 WBC 9.0 D RBC 4.20 Hgb 12.7 Hct 39.3 MCV 93.5 MCH 30.2 MCHC 32.3 RDW 16.5 H Plt Count 195 D MPV 8.2 Neutrophils % 71.5 D Lymphocytes % 14.1 D Monocytes % 5.7 Eosinophils % 7.5 H Basophils % 1.2 PT with INR 10.40 INR 0.92 PTT (Actin FS) 30.4 VBG pH 7.37 POC VBG pCO2 42.3 POC VBG pO2 30.0 Mixed VBG HCO3 24.0 Sodium Potassium Chloride Carbon Dioxide Anion Gap BUN Creatinine Creat Clearance w eGFR POC Glucometer Random Glucose Hemoglobin A1c % Lactic Acid Calcium Phosphorus Magnesium Total Bilirubin AST ALT Alkaline Phosphatase Ammonia Creatine Kinase Troponin I C-Reactive Protein Total Protein Albumin TSH Hepatitis C Antibody Blood Type Antibody Screen 03/22/17 03/22/17 03/22/17 17:30 17:30 17:30 WBC RBC Hgb Hct MCV MCH MCHC RDW Plt Count MPV Neutrophils % Lymphocytes % Monocytes % Eosinophils % Basophils % PT with INR INR PTT (Actin FS) VBG pH POC VBG pCO2 POC VBG pO2 Mixed VBG HCO3 Sodium 132 L Potassium 6.0 H Chloride 99 Carbon Dioxide 22 Anion Gap 11 BUN 26 H D Creatinine 6.7 H Creat Clearance w eGFR 6.22 POC Glucometer Random Glucose 174 H Hemoglobin A1c % Lactic Acid 1.5 Calcium 8.3 L Phosphorus Magnesium Total Bilirubin 0.7 AST 20 ALT 25 Alkaline Phosphatase 71 Ammonia Creatine Kinase 68 Troponin I < 0.02 C-Reactive Protein Total Protein 8.5 H Albumin 3.6 TSH Hepatitis C Antibody Blood Type A POSITIVE Antibody Screen Negative 03/22/17 03/22/17 03/22/17 20:16 20:16 21:45 WBC RBC Hgb Hct MCV MCH MCHC RDW Plt Count MPV Neutrophils % Lymphocytes % Monocytes % Eosinophils % Basophils % PT with INR INR PTT (Actin FS) VBG pH POC VBG pCO2 POC VBG pO2 Mixed VBG HCO3 Sodium 130 L Potassium 6.3 H* Chloride 99 Carbon Dioxide 22 Anion Gap 9 BUN 30 H Creatinine 7.1 H Creat Clearance w eGFR 5.81 POC Glucometer Random Glucose 226 H D Hemoglobin A1c % Lactic Acid Calcium 8.1 L Phosphorus 4.2 D Magnesium 2.0 Total Bilirubin 0.7 AST 15 D ALT 23 Alkaline Phosphatase 71 Ammonia 31.2 Creatine Kinase Troponin I C-Reactive Protein Total Protein 8.1 Albumin 3.4 TSH Hepatitis C Antibody Blood Type Antibody Screen 03/23/17 03/23/17 03/23/17 01:27 01:27 05:48 WBC RBC Hgb Hct MCV MCH MCHC RDW Plt Count MPV Neutrophils % Lymphocytes % Monocytes % Eosinophils % Basophils % PT with INR INR PTT (Actin FS) VBG pH POC VBG pCO2 POC VBG pO2 Mixed VBG HCO3 Sodium 134 L Potassium 5.8 H Chloride 98 Carbon Dioxide 22 Anion Gap 14 BUN 32 H Creatinine 7.7 H* Creat Clearance w eGFR POC Glucometer 84 Random Glucose 253 H Hemoglobin A1c % Lactic Acid 3.1 H* Calcium 8.2 L Phosphorus Magnesium Total Bilirubin AST ALT Alkaline Phosphatase Ammonia Creatine Kinase Troponin I C-Reactive Protein Total Protein Albumin TSH Hepatitis C Antibody Blood Type Antibody Screen 03/23/17 03/23/17 03/23/17 06:05 06:05 06:05 WBC 8.8 RBC 3.76 Hgb 11.0 D Hct 35.4 MCV 94.3 MCH 29.4 MCHC 31.2 L RDW 15.7 H Plt Count 167 MPV 8.4 Neutrophils % 68.2 Lymphocytes % 18.3 D Monocytes % 11.5 H D Eosinophils % 0.7 D Basophils % 1.3 PT with INR INR PTT (Actin FS) VBG pH POC VBG pCO2 POC VBG pO2 Mixed VBG HCO3 Sodium 136 Potassium 5.3 H Chloride 99 Carbon Dioxide 25 Anion Gap 12 BUN 33 H Creatinine 8.0 H* Creat Clearance w eGFR 5.07 POC Glucometer Random Glucose 100 D Hemoglobin A1c % 9.7 H D Lactic Acid Calcium 8.1 L Phosphorus Magnesium Total Bilirubin 0.5 D AST 13 L ALT 18 D Alkaline Phosphatase 59 Ammonia Creatine Kinase Troponin I C-Reactive Protein Total Protein 7.2 Albumin 3.0 L TSH Hepatitis C Antibody Blood Type Antibody Screen 03/23/17 03/23/17 03/23/17 06:05 10:04 10:05 WBC RBC Hgb Hct MCV MCH MCHC RDW Plt Count MPV Neutrophils % Lymphocytes % Monocytes % Eosinophils % Basophils % PT with INR INR PTT (Actin FS) VBG pH POC VBG pCO2 POC VBG pO2 Mixed VBG HCO3 Sodium Potassium Chloride Carbon Dioxide Anion Gap BUN Creatinine Creat Clearance w eGFR POC Glucometer 148 Random Glucose Hemoglobin A1c % Lactic Acid 2.2 H* Calcium Phosphorus Magnesium Total Bilirubin AST ALT Alkaline Phosphatase Ammonia 19.19 Creatine Kinase Troponin I C-Reactive Protein Total Protein Albumin TSH Hepatitis C Antibody Blood Type Antibody Screen 03/23/17 03/23/17 03/23/17 10:05 10:05 14:30 WBC RBC Hgb Hct MCV MCH MCHC RDW Plt Count MPV Neutrophils % Lymphocytes % Monocytes % Eosinophils % Basophils % PT with INR INR PTT (Actin FS) VBG pH POC VBG pCO2 POC VBG pO2 Mixed VBG HCO3 Sodium 136 Potassium 5.3 H Chloride 102 Carbon Dioxide 23 Anion Gap 11 BUN 31 H Creatinine 7.2 H Creat Clearance w eGFR POC Glucometer Random Glucose 175 H D Hemoglobin A1c % Lactic Acid Calcium 7.8 L Phosphorus Magnesium Total Bilirubin AST ALT Alkaline Phosphatase Ammonia Creatine Kinase Troponin I C-Reactive Protein 0.9 H D Cancelled Total Protein Albumin TSH 1.13 D Hepatitis C Antibody Blood Type Antibody Screen 03/23/17 03/23/17 14:30 15:51 WBC RBC Hgb Hct MCV MCH MCHC RDW Plt Count MPV Neutrophils % Lymphocytes % Monocytes % Eosinophils % Basophils % PT with INR INR PTT (Actin FS) VBG pH POC VBG pCO2 POC VBG pO2 Mixed VBG HCO3 Sodium Potassium Chloride Carbon Dioxide Anion Gap BUN Creatinine Creat Clearance w eGFR POC Glucometer 174 Random Glucose Hemoglobin A1c % Lactic Acid Calcium Phosphorus Magnesium Total Bilirubin AST ALT Alkaline Phosphatase Ammonia Creatine Kinase Troponin I C-Reactive Protein Total Protein Albumin TSH Hepatitis C Antibody Cancelled Blood Type Antibody Screen Active Medications Generic Name Dose Route Start Last Admin Trade Name Freq PRN Reason Stop Dose Admin Acetaminophen 1,000 mg 03/23/17 10:06 Ofirmev Injection - IVPB Q6H PRN FEVER OR PAIN Sodium Chloride 1,000 mls @ 100 mls/hr 03/22/17 23:00 03/23/17 03:00 Normal Saline - IV 100 mls/hr ASDIR NAJMA Administration CEFTRIAXONE 1 G/50 ML PREMIX 50 mls @ 100 mls/hr 03/23/17 10:15 03/23/17 15: 00 Ceftriaxone 1 Gm-D5w Bag IVPB 100 mls/hr DAILY NAJMA Administration Levetiracetam 250 mg/ Dextrose 102.5 mls @ 420 mls/hr 03/23/17 13:15 IVPB BID NAJMA Insulin Aspart 1 vial 03/22/17 22:00 03/23/17 11:17 Novolog Vial Sliding Scale - SQ Not Given ACHS NAJMA Protocol Metoprolol Tartrate 2.5 mg 03/23/17 12:51 Lopressor Injection - IVPUSH Q4H PRN HYPERTENSION Ondansetron HCl 4 mg 03/22/17 21:16 Zofran Injection IVPUSH Q6H PRN NAUSEA Pantoprazole Sodium 20 mg 03/23/17 10:00 03/23/17 11:17 Protonix Iv IVPB Not Given DAILY NAJMA ASSESSMENT/PLAN: 66F with a PMHx of HTN, HLD, TIA , CVA, DM, ESRD (HD T,TH,S), kidney transplant 2006, who presented with one day history of AMS, N/V, and was found to have hypertensive emergency. # AMS * likely multifactorial from hypertensive emergency, UTI, and metabolic * BP treated with IV labetalol * neurology consulted, f/u recs * CXR negative for acute process * Head CT scan no changes compare to last CT on 02/23/17 * abdomen /pelvic CT: no acute changes. marked atrophy of renal transplant and [place] kidneys. possible punctate gallbladder calculus. * Lactic acid: 1.5 --> 3.1 --> 2.2. f/u repeat lactic acid * f/u UA * f/u urine drug screen * ammonia: normal * pt not tolerating po meds, so being given lopressor IV 2.5mg q4h PRN for systolic BP > 140 * start thiamine * restart po meds once tolerating * per cards, can d/c tele once tolerating po * started ceftriaxone empirically # H/O multiple TIA/CVA * Head CT: unremarkable for acute intracranial pathology , same compare to last one in 02/23/17 * NARESH 10/02: Mild MR, trace TR, Moderate * Carotid Doppler 01/02: moderate atherosclerotic dz * Cont Atorvastatin 20mg * Neurology Consulted * Consider speech/swallow eval when mentally improved * Keppra 500mg, obtain medication list # CKD * On HD * nephrology consulted, recs appreciated. * HD today # DM, * non compliant with her meds * ISS * BGM Q4hr * NPO for now #Hyperkalemia, Hyponatremia * secondary to ESRD, vs low oral intake * K: 6 , Na 132 * NS @ 100 cc/hr # FEN * F: NS @ 100 CC/hr * E: Hyperkalemia, hypopnatremia om HD * N: NPO , for now due to AMS # Proph * DVT: SCDS both legs , on plavix 75 , ASA held in last visit * GI: continue protonix 20 Tried to confirm home meds, but no one picked up. Will try again candy. Case discussed with attending, Dr. Hess. -Christian Foster MD PGY1 Visit type - Emergency Visit Emergency Visit: Yes ED Registration Date: 03/23/17 Care time: The patient presented to the Emergency Department on the above date and was hospitalized for further evaluation of their emergent condition. - New Patient This patient is new to me today: Yes Date on this admission: 03/24/17 - Critical Care Critical Care patient: No
[2017-03-23 16:58] LABS: CREATININE 3.4 mg/dL (0.55-1.02)
--- NOTE | 2017-03-23 17:12 | PN ---
Teaching Attending Note Name of Resident: Christian Foster ATTENDING PHYSICIAN STATEMENT I saw and evaluated the patient. I reviewed the resident's note and discussed the case with the resident. I agree with the resident's findings and plan as documented. SUBJECTIVE: Patient is a 66yo female presented to the hospital with acute change of mental status. Patient is unresponsive, does not follow any commands at this time. OBJECTIVE: Vital Signs Temperature 98.6 F 03/23/17 12:50 Pulse Rate 88 03/23/17 16:22 Respiratory Rate 18 03/23/17 16:22 Blood Pressure 166/74 03/23/17 16:22 O2 Sat by Pulse Oximetry (%) 96 03/23/17 09:26 CBCD WBC 8.8 K/mm3 (4.0-10.0) 03/23/17 06:05 RBC 3.76 M/mm3 (3.60-5.2) 03/23/17 06:05 Hgb 11.0 GM/dL (10.7-15.3) D 03/23/17 06:05 Hct 35.4 % (32.4-45.2) 03/23/17 06:05 MCV 94.3 fl (80-96) 03/23/17 06:05 MCHC 31.2 g/dl (32.0-36.0) L 03/23/17 06:05 RDW 15.7 % (11.6-15.6) H 03/23/17 06:05 Plt Count 167 K/MM3 (134-434) 03/23/17 06:05 MPV 8.4 fl (7.5-11.1) 03/23/17 06:05 CMP Sodium 136 mmol/L (136-145) 03/23/17 14:30 Potassium 5.3 mmol/L (3.5-5.1) H 03/23/17 14:30 Chloride 102 mmol/L (98-107) 03/23/17 14:30 Carbon Dioxide 23 mmol/L (21-32) 03/23/17 14:30 Anion Gap 11 (8-16) 03/23/17 14:30 BUN 31 mg/dL (7-18) H 03/23/17 14:30 Creatinine 7.2 mg/dL (0.55-1.02) H 03/23/17 14:30 Creat Clearance w eGFR 5.07 (>60) 03/23/17 06:05 Random Glucose 175 mg/dL (74-106) H D 03/23/17 14:30 Calcium 7.8 mg/dL (8.5-10.1) L 03/23/17 14:30 Total Bilirubin 0.5 mg/dL (0.2-1.0) D 03/23/17 06:05 AST 13 U/L (15-37) L 03/23/17 06:05 ALT 18 U/L (12-78) D 03/23/17 06:05 Alkaline Phosphatase 59 U/L (45-117) 03/23/17 06:05 Total Protein 7.2 g/dl (6.4-8.2) 03/23/17 06:05 Albumin 3.0 g/dl (3.4-5.0) L 03/23/17 06:05 CARDIAC ENZYMES Creatine Kinase 68 IU/L (26-192) 03/22/17 17:30 Troponin I < 0.02 ng/ml (0.00-0.05) 03/22/17 17:30 Current Medications Generic Name Dose Route Start Last Admin Trade Name Freq PRN Reason Stop Dose Admin Acetaminophen 1,000 mg 03/23/17 10:06 Ofirmev Injection - IVPB Q6H PRN FEVER OR PAIN Heparin Sodium (Porcine) 5,000 unit 03/23/17 22:00 Heparin - SQ TID NAJMA Sodium Chloride 1,000 mls @ 100 mls/hr 03/22/17 23:00 03/23/17 03:00 Normal Saline - IV 100 mls/hr ASDIR NAJMA Administration CEFTRIAXONE 1 G/50 ML PREMIX 50 mls @ 100 mls/hr 03/23/17 10:15 03/23/17 15: 00 Ceftriaxone 1 Gm-D5w Bag IVPB 100 mls/hr DAILY NAJMA Administration Levetiracetam 250 mg/ Dextrose 102.5 mls @ 420 mls/hr 03/23/17 13:15 IVPB BID NAJMA Insulin Aspart 1 vial 03/22/17 22:00 03/23/17 11:17 Novolog Vial Sliding Scale - SQ Not Given ACHS NAJMA Protocol Metoprolol Tartrate 2.5 mg 03/23/17 12:51 Lopressor Injection - IVPUSH Q4H PRN HYPERTENSION Ondansetron HCl 4 mg 03/22/17 21:16 Zofran Injection IVPUSH Q6H PRN NAUSEA Pantoprazole Sodium 20 mg 03/23/17 10:00 03/23/17 11:17 Protonix Iv IVPB Not Given DAILY NAJMA Home Medications Medication Instructions Recorded Atorvastatin Ca [Lipitor] 20 mg PO HS 11/12/15 Pantoprazole Sodium [Protonix] 20 mg PO DAILY 11/12/15 Levetiracetam [Keppra -] 250 mg PO BID 30 Days tablet 11/16/15 Metoprolol Tartrate [Lopressor -] 50 mg PO BID #60 tablet 11/17/15 Calcium Acetate [Phoslo -] 667 mg PO TIDCM 12/01/15 Clopidogrel Bisulfate [Plavix -] 75 mg PO DAILY tablet 11/03/16 Amlodipine Besylate [Norvasc -] 10 mg PO DAILY #30 tablet 01/20/17 PE: per resident's note unresponsive. Doesn't follow any commands. ASSESSMENT AND PLAN: Patient is a 66 year old woman with a history of HTN, HLD, CAD, valvular heart disease, Renal transplant 2006, ESRD on HD, CVAs/TIAs, presented to ED. with having acute change of mental status, with elevated systolic blood pressure of over 200's. # Acute change of mental status multifactorial r/o sepsis, r/o UTI, straight cath. strong culture was send. CT of head no bleed, patient has a hx of CVA/TIAs. will get neurology consult . As per building carpenter NARESH was done on 2015 , no mass or endocarditis was reported. will repeat the echo. On Rocephin daily and vancomycin post HD. If no improvement will get MRI of the head. Discussed with and [place] who knows the patient from the previous admission. will start the patient on rectal aspirin since patient is unresponsive and Plavix is on hold. # HTN emergency , controlled now, on IV lopressor to give above SBP 140 . Patient is NPO now since not following any commands. Once patient becomes responsive will place her back to her home meds. # Hx of CVA/TIA on Plavix is on hold since patient is unresponsive. # ESRD on HD , on the case, further management by nephro. #Valvular heart disease-stable . will repeat echo to re-evaluate # CAD-stable outpatient follow up # Hx of Seizure on Keppra continue IV . DVT Px: Heparin sq
[2017-03-23] MEDS ORDERED: levETIRAcetam 500 MG/5 ML INJECTION VIAL IVPB SCH (22:00)
[2017-03-23] MEDS: ASPIRIN 300 MG SUPP.RECT RC SCH (23:04)
[2017-03-23] MEDS: HEPARIN NA (PORCINE) 5,000 UNITS/ML 1ML VIAL SQ SCH (23:04)
[2017-03-23] MEDS: LEVETIRACETAM IVPB SCH (23:05)
[2017-03-23] MEDS: DEXTROSE 5% IVPB SCH (23:05)
[2017-03-23] MEDS: WATER IVPB SCH (23:05)
[2017-03-24] MEDS: HEPARIN NA (PORCINE) 5,000 UNITS/ML 1ML VIAL SQ SCH ×3 (06:08→22:32)
[2017-03-24] MEDS: INSULIN SLIDING SCALE (NOVOLOG) 1 VIAL SQ SCH ×4 (06:08→22:31)
[2017-03-24 08:19] LABS: EOS % 11.6 % (0-4.5); HEMATOCRIT 29.5 % (32.4-45.2); HEMOGLOBIN 9.3 GM/dL (10.7-15.3); LYMPH % 18.7 % (8-40); MCH 29.8 pg (25.7-33.7); MCHC 31.6 g/dl (32.0-36.0); MEAN CELL VOLUME 94.3 fl (80-96); MEAN PLT VOLUME 8.4 fl (7.5-11.1); MONO % 7.6 % (3.8-10.2); NEUT % 61.1 % (42.8-82.8); PLATELET COUNT 131 K/MM3 (134-434); RBC 3.13 M/mm3 (3.60-5.2); RDW 15.6 % (11.6-15.6); WHITE BLOOD COUNT 7.7 K/mm3 (4.0-10.0)
[2017-03-24 08:58] LABS: ANION GAP 7 (8-16); BLOOD UREA NITROGEN 20 mg/dL (7-18); CALCIUM 7.3 mg/dL (8.5-10.1); CHLORIDE 100 mmol/L (98-107); CO2 28 mmol/L (21-32); GLUCOSE,RANDOM 148 mg/dL (74-106); POTASSIUM 4.7 mmol/L (3.5-5.1); SGOT/AST 12 U/L (15-37); SGPT/ALT 16 U/L (12-78); SODIUM 135 mmol/L (136-145)
[2017-03-24 09:01] LABS: ALK PHOS 50 U/L (45-117); BILIRUBIN,TOTAL 0.8 mg/dL (0.2-1.0); CREATININE 5.6 mg/dL (0.55-1.02); TOT PROT 6.6 g/dl (6.4-8.2)
--- NOTE | 2017-03-24 09:49 | PN ---
Progress Note, Physician Chief Complaint: TELE: NSR No acute distress - Current Medication List Current Medications: Active Medications Acetaminophen (Ofirmev Injection -) 1,000 mg IVPB Q6H PRN PRN Reason: FEVER OR PAIN Last Admin: 03/23/17 17:53 Dose: 1,000 mg Aspirin (Asa -) 300 mg RC DAILY [facility] Last Admin: 03/23/17 23:04 Dose: 300 mg Heparin Sodium (Porcine) (Heparin -) 5,000 unit SQ TID [facility] Last Admin: 03/24/17 06:08 Dose: 5,000 unit Sodium Chloride (Normal Saline -) 1,000 mls @ 100 mls/hr IV ASDIR [facility] Last Admin: 03/23/17 23:05 Dose: 100 mls/hr CEFTRIAXONE 1 G/50 ML PREMIX (Ceftriaxone 1 Gm-D5w Bag) 50 mls @ 100 mls/hr IVPB DAILY [facility] Last Admin: 03/23/17 15:00 Dose: 100 mls/hr Levetiracetam 250 mg/ Dextrose 102.5 mls @ 420 mls/hr IVPB BID [facility] Last Admin: 03/23/17 23:05 Dose: 420 mls/hr Insulin Aspart (Novolog Vial Sliding Scale -) 1 vial SQ ACHS [facility] PRN Reason: Protocol Last Admin: 03/24/17 06:08 Dose: Not Given Metoprolol Tartrate (Lopressor Injection -) 5 mg IVPUSH Q4H PRN PRN Reason: HYPERTENSION Pantoprazole Sodium (Protonix Iv) 20 mg IVPB DAILY [facility] Last Admin: 03/23/17 11:17 Dose: Not Given - Objective Vital Signs: Vital Signs Temperature 98.8 F 03/24/17 05:33 Pulse Rate 90 03/24/17 05:33 Respiratory Rate 20 03/24/17 05:33 Blood Pressure 174/86 03/24/17 05:33 O2 Sat by Pulse Oximetry (%) 93 L 03/24/17 00:44 Constitutional: Yes: Calm Cardiovascular: Yes: Regular Rate and Rhythm Respiratory: Yes: CTA Bilaterally Gastrointestinal: Yes: Soft Edema: No Neurological: Yes: Alert, Oriented Labs: CBC, BMP 03/24/17 05:25 03/24/17 05:25 INR, PTT INR 0.92 (0.82-1.09) 03/22/17 17:30 Microbiology 03/22/17 17:30 Blood - Peripheral Venous Blood Culture - Preliminary NO GROWTH OBTAINED AFTER 24 HOURS, INCUBATION TO CONTINUE FOR 4 DAYS. 03/22/17 17:30 Blood - Peripheral Venous Blood Culture - Preliminary NO GROWTH OBTAINED AFTER 24 HOURS, INCUBATION TO CONTINUE FOR 4 DAYS. Laboratory Tests 03/24/17 03/24/17 05:25 05:25 WBC 7.7 Hgb 9.3 L D Plt Count 131 L D Sodium 135 L Creatinine 5.6 H D Assessment/Plan Assessment/Plan 66 year old woman with a history of HTN, HLD, CAD, valvular heart disease, Renal transplant 2006, ESRD on HD, CVAs/TIAs, multiple admissions for AMS pt was started on ASA in addition to her chronic plavix therapy on 11/17/15 based on spontaneous echo contrast that was seen on NARESH (not thrombus) and in the setting of prior CVA again admitted with AMS. HTN-severely uncontrolled on presentation, now mildly elevated -if pt taking po (currently NPO) resume home meds -for now can cont with prn Labetalol -likely needs to stay on tele to allow for prn IV HTN meds, once tolerating po can likely go off tele AMS/weakness-unclear etiology, multiple prior admissions with similar presentation -neurology to evaluate -full work up completed in past for cardiac source of embolism -NARESH was done 09/2015 to evaluate valvular abnormality and was felt to not be endocarditis or mass on MV but more likely a ruptured chordae therefore unlikely to be responsible for CVA -tele and ekgs on prior admissions have shown NSR, no arrhythmia -no events on tele on this admission so far
[2017-03-24] MEDS: DEXTROSE 5% IVPB SCH (10:25)
[2017-03-24] MEDS: LEVETIRACETAM IVPB SCH (10:25)
[2017-03-24] MEDS: WATER IVPB SCH (10:25)
[2017-03-24] MEDS: ASPIRIN 300 MG SUPP.RECT RC SCH (10:25)
[2017-03-24] MEDS: CEFTRIAXONE 1 G/50 ML PREMIX 50 ML IVPB SCH (10:25)
[2017-03-24] MEDS: PANTOPRAZOLE SODIUM 40 MG VIAL IVPB SCH (10:26)
--- NOTE | 2017-03-24 11:23 | PN ---
<Christian Foster - Last Filed: 03/24/17 11:36> Physical Exam: SUBJECTIVE: Patient seen and examined Per nursing note, pt agitated overnight. This am, pt significantly more alert and communicative compared to yesterday. She denies headache, blurry vision, chest pain, SOB, abdominal pain, n/v/d/c, and dysuria. OBJECTIVE: Vital Signs Period Temp Pulse Resp BP Sys/Travis Pulse Ox Last 24 Hr 97.1 F-98.8 F 86-114 14-20 106-192/56-96 93 GENERAL: The patient is awake, alert, AAOx1 (name), in no acute distress. HEENT: NC, AT NECK: Trachea midline, full range of motion, supple. LUNGS: Breath sounds equal, clear to auscultation bilaterally, no wheezes, no crackles, no accessory muscle use. HEART: systolic murmur ABDOMEN: Soft, nontender, nondistended, normoactive bowel sounds, no guarding, no rebound, no hepatosplenomegaly, no masses. EXTREMITIES: 2+ pulses, warm, well-perfused, no edema. NEUROLOGICAL: Cranial nerves II through XII grossly intact. Normal speech, gait not observed. AAOx1 (name) Laboratory Results - last 24 hr 03/23/17 03/23/17 03/23/17 14:30 14:30 14:30 WBC RBC Hgb Hct MCV MCH MCHC RDW Plt Count MPV Neutrophils % Lymphocytes % Monocytes % Eosinophils % Basophils % Sodium 136 Potassium 5.3 H Chloride 102 Carbon Dioxide 23 Anion Gap 11 BUN 31 H Creatinine 7.2 H Creat Clearance w eGFR POC Glucometer Random Glucose 175 H D Calcium 7.8 L Total Bilirubin AST ALT Alkaline Phosphatase Total Protein Albumin Hepatitis C Antibody Cancelled <0.1 03/23/17 03/23/17 03/23/17 15:51 16:05 23:11 WBC RBC Hgb Hct MCV MCH MCHC RDW Plt Count MPV Neutrophils % Lymphocytes % Monocytes % Eosinophils % Basophils % Sodium Potassium Chloride Carbon Dioxide Anion Gap BUN 13 D Creatinine 3.4 H D Creat Clearance w eGFR POC Glucometer 174 156 Random Glucose Calcium Total Bilirubin AST ALT Alkaline Phosphatase Total Protein Albumin Hepatitis C Antibody 03/24/17 03/24/17 03/24/17 05:25 05:25 05:29 WBC 7.7 RBC 3.13 L Hgb 9.3 L D Hct 29.5 L D MCV 94.3 MCH 29.8 MCHC 31.6 L RDW 15.6 Plt Count 131 L D MPV 8.4 Neutrophils % 61.1 Lymphocytes % 18.7 Monocytes % 7.6 Eosinophils % 11.6 H D Basophils % 1.0 Sodium 135 L Potassium 4.7 Chloride 100 Carbon Dioxide 28 D Anion Gap 7 L BUN 20 H D Creatinine 5.6 H D Creat Clearance w eGFR 7.65 POC Glucometer 147 Random Glucose 148 H Calcium 7.3 L Total Bilirubin 0.8 D AST 12 L ALT 16 Alkaline Phosphatase 50 Total Protein 6.6 Albumin 3.0 L Hepatitis C Antibody Active Medications Generic Name Dose Route Start Last Admin Trade Name Freq PRN Reason Stop Dose Admin Acetaminophen 1,000 mg 03/23/17 10:06 03/23/17 17:53 Ofirmev Injection - IVPB 1,000 mg Q6H PRN Administration FEVER OR PAIN Aspirin 300 mg 03/23/17 18:00 03/24/17 10:25 Asa - RC 300 mg DAILY NAJMA Administration Heparin Sodium (Porcine) 5,000 unit 03/23/17 22:00 03/24/17 06:08 Heparin - SQ 5,000 unit TID NAJMA Administration Sodium Chloride 1,000 mls @ 100 mls/hr 03/22/17 23:00 03/23/17 23:05 Normal Saline - IV 100 mls/hr ASDIR NJAMA Administration CEFTRIAXONE 1 G/50 ML PREMIX 50 mls @ 100 mls/hr 03/23/17 10:15 03/24/17 10: 25 Ceftriaxone 1 Gm-D5w Bag IVPB 100 mls/hr DAILY NAJMA Administration Levetiracetam 250 mg/ Dextrose 102.5 mls @ 420 mls/hr 03/23/17 13:15 10:25 IVPB 420 mls/hr BID NAJMA Administration Insulin Aspart 1 vial 03/22/17 22:00 03/24/17 06:08 Novolog Vial Sliding Scale - SQ Not Given ACHS COUNTS INCLUDE 234 BEDS AT THE [facility] Protocol Metoprolol Tartrate 5 mg 03/23/17 17:57 03/24/17 10:26 Lopressor Injection - IVPUSH 5 mg Q4H PRN Administration HYPERTENSION Pantoprazole Sodium 20 mg 03/23/17 10:00 01/05/18 10:26 Protonix Iv IVPB 20 mg DAILY NAJMA Administration ASSESSMENT/PLAN: 66F with a PMHx of HTN, HLD, TIA , CVA, DM, ESRD (HD ,,), kidney transplant 2006, who presented with one day history of AMS, N/V, and was found to have hypertensive emergency. # AMS- improving, pt alert and communicative today * likely multifactorial from hypertensive emergency, UTI, and metabolic * continue lopressor IV 5mg q4h PRN until pt able to tolerate po. restart home meds once able to tolerate po * neurology consulted, f/u recs * Head CT and CT abd/pelvis show no acute changes * Lactic acid: 1.5 --> 3.1 --> 2.2. f/u repeat lactic acid * f/u UA * f/u urine drug screen * continue thiamine * per cards, can d/c tele once tolerating po * continue empiric ceftriaxone * f/u S&S #HTN emergency- improving -BP of 150-180/75-85 overnight -continue lopressor IV 5mg q4h PRN until pt able to tolerate po. restart home meds once able to tolerate po # H/O multiple TIA/CVA * Head CT: unremarkable for acute intracranial pathology , same compare to last one in 02/23/17 * NARESH 10/02: Mild MR, trace TR, Moderate * Carotid Doppler 01/02: moderate atherosclerotic dz * Cont Atorvastatin 20mg * ASA started * Neurology Consulted * Matthew # CKD * On HD ,, * nephrology consulted, recs appreciated. # DM, * non compliant with her meds * ISS * BGM Q4hr * NPO for now until able to tolerate po #Hyperkalemia, Hyponatremia * secondary to ESRD, vs low oral intake * K: 4.7 , Na 135 * NS @ 100 cc/hr # FEN * F: NS @ 100 CC/hr * E: Hyperkalemia, hypopnatremia * N: NPO , for now due to AMS # Proph * DVT: heparin * GI: protonix Will try to confirm home meds again today. Case discussed with attending, Dr. Hess. -Christian Foster MD PGY1 Visit type - Emergency Visit Emergency Visit: Yes ED Registration Date: 03/23/17 Care time: The patient presented to the Emergency Department on the above date and was hospitalized for further evaluation of their emergent condition. - New Patient This patient is new to me today: No - Critical Care Critical Care patient: No <Claire Hess - Last Filed: 03/24/17 20:24> Physical Exam: SUBJECTIVE: Patient seen and examined Laboratory Results - last 24 hr 03/23/17 03/23/17 03/24/17 14:30 23:11 05:25 WBC 7.7 RBC 3.13 L Hgb 9.3 L D Hct 29.5 L D MCV 94.3 MCH 29.8 MCHC 31.6 L RDW 15.6 Plt Count 131 L D MPV 8.4 Neutrophils % 61.1 Lymphocytes % 18.7 Monocytes % 7.6 Eosinophils % 11.6 H D Basophils % 1.0 Sodium Potassium Chloride Carbon Dioxide Anion Gap BUN Creatinine Creat Clearance w eGFR POC Glucometer 156 Random Glucose Lactic Acid Calcium Total Bilirubin AST ALT Alkaline Phosphatase Total Protein Albumin Hep A IgM Ab Confirm Negative Hepatitis A Ab Total Positive H Hep Bs Antigen Negative Hep Bs Antibody Non reactive Hep B Core Total Ab Negative Hepatitis C Antibody <0.1 03/24/17 03/24/17 03/24/17 05:25 05:29 11:00 WBC RBC Hgb Hct MCV MCH MCHC RDW Plt Count MPV Neutrophils % Lymphocytes % Monocytes % Eosinophils % Basophils % Sodium 135 L Potassium 4.7 Chloride 100 Carbon Dioxide 28 D Anion Gap 7 L BUN 20 H D Creatinine 5.6 H D Creat Clearance w eGFR 7.65 POC Glucometer 147 Random Glucose 148 H Lactic Acid 0.9 Calcium 7.3 L Total Bilirubin 0.8 D AST 12 L ALT 16 Alkaline Phosphatase 50 Total Protein 6.6 Albumin 3.0 L Hep A IgM Ab Confirm Hepatitis A Ab Total Hep Bs Antigen Hep Bs Antibody Hep B Core Total Ab Hepatitis C Antibody 03/24/17 03/24/17 11:32 17:26 WBC RBC Hgb Hct MCV MCH MCHC RDW Plt Count MPV Neutrophils % Lymphocytes % Monocytes % Eosinophils % Basophils % Sodium Potassium Chloride Carbon Dioxide Anion Gap BUN Creatinine Creat Clearance w eGFR POC Glucometer 155 232 Random Glucose Lactic Acid Calcium Total Bilirubin AST ALT Alkaline Phosphatase Total Protein Albumin Hep A IgM Ab Confirm Hepatitis A Ab Total Hep Bs Antigen Hep Bs Antibody Hep B Core Total Ab Hepatitis C Antibody Active Medications Generic Name Dose Route Start Last Admin Trade Name Freq PRN Reason Stop Dose Admin Amlodipine Besylate 10 mg 03/25/17 10:00 Norvasc - PO DAILY COUNTS INCLUDE 234 BEDS AT THE [facility] Aspirin 81 mg 03/25/17 10:00 Ecotrin - PO DAILY COUNTS INCLUDE 234 BEDS AT THE [facility] Atorvastatin Calcium 20 mg 03/24/17 22:00 Lipitor - PO HS NAJMA Clopidogrel Bisulfate 75 mg 03/25/17 10:00 Plavix - PO DAILY COUNTS INCLUDE 234 BEDS AT THE [facility] Epoetin Twan 6,000 unit 03/25/17 06:00 Procrit - IVPUSH 03/25/17 06:01 ONCE ONE Heparin Sodium (Porcine) 5,000 unit 03/23/17 22:00 03/24/17 15:31 Heparin - SQ 5,000 unit TID NAJMA Administration CEFTRIAXONE 1 G/50 ML PREMIX 50 mls @ 100 mls/hr 03/23/17 10:15 03/24/17 10: 25 Ceftriaxone 1 Gm-D5w Bag IVPB 100 mls/hr DAILY NAJMA Administration Vancomycin HCl 1,000 mg/ 250 mls @ 250 mls/hr 03/25/17 06:00 Dextrose IVPB 03/25/17 06:59 ONCE ONE Protocol Insulin Aspart 1 vial 03/22/17 22:00 03/24/17 17:29 Novolog Vial Sliding Scale - SQ 4 units ACHS NAJMA Administration Protocol Levetiracetam 250 mg 03/24/17 22:00 Keppra - PO BID COUNTS INCLUDE 234 BEDS AT [facility] Metoprolol Tartrate 5 mg 03/23/17 17:57 03/24/17 10:26 Lopressor Injection - IVPUSH 5 mg Q4H PRN Administration HYPERTENSION Metoprolol Tartrate 50 mg 03/24/17 22:00 Lopressor - PO BID COUNTS INCLUDE 234 BEDS AT [facility] Pantoprazole Sodium 20 mg 03/25/17 10:00 Protonix - PO DAILY COUNTS INCLUDE 234 BEDS AT THE [facility] Patient seen and examined with the resident. agree as above
[2017-03-24] MEDS ORDERED: NIFEdipine E.R 60 MG TABLET (UD) PO SCH (11:45)
[2017-03-24] MEDS ORDERED: ASPIRIN 81 MG CHEWABLE TABLETS PO SCH (11:45)
--- NOTE | 2017-03-24 12:42 | CON.NEURO ---
Consult - Past Medical History BAG REPAIRER: Yes: CVA, Dementia, TIA Cardio/Vascular: Yes: HTN, Hyperlipdemia Gastrointestinal: Yes: Other Renal/: Yes: Renal Failure (on HD ()), Hemodialysis, Other (s/p DDRT 2006) ...: No Endocrine: Yes: Diabetes Mellitus - Past Surgical History Past Surgical History: Yes: Appendectomy, , Hysterectomy, Kidney Transplant (2006 [facility]) - Alcohol/Substance Use Hx Alcohol Use: No - Smoking History Smoking history: Unknown if ever smoked Have you smoked in the past 12 months: No Aproximately how many cigarettes per day: 0 - Social History Usual Living Arrangement: With Significant Other ADL: Independent History of Recent Travel: No (traveled to [place] in August 2013) Home Medications - Allergies Allergies/Adverse Reactions: Allergies Allergy/AdvReac Type Severity Reaction Status Date / Time codeine Allergy Verified 10/31/16 10:47 promethazine HCl Allergy Verified 10/31/16 10:47 [From Phenergan] - Home Medications Home Medications: Ambulatory Orders Atorvastatin Ca [Lipitor] 20 mg PO HS 11/12/15 Pantoprazole Sodium [Protonix] 20 mg PO DAILY 11/12/15 Levetiracetam [Keppra -] 250 mg PO BID 30 Days tablet 11/16/15 Metoprolol Tartrate [Lopressor -] 50 mg PO BID #60 tablet 11/17/15 Calcium Acetate [Phoslo -] 667 mg PO TIDCM 12/01/15 Clopidogrel Bisulfate [Plavix -] 75 mg PO DAILY tablet 11/03/16 Amlodipine Besylate [Norvasc -] 10 mg PO DAILY #30 tablet 01/20/17 Aspirin 81 mg PO DAILY 03/24/17 Nifedipine ER [Procardia XL -] 60 mg PO DAILY 03/24/17 Sodium Polystyrene Sulfonate [Kayexalate -] 30 grams PO 03/24/17 Family Disease History - Family Disease History Family Disease History: Diabetes: Mother, Brother, Sister Physical Exam-Neuro Vital Signs: Vital Signs Temperature 98.4 F 03/24/17 08:15 Pulse Rate 88 03/24/17 10:26 Respiratory Rate 14 03/24/17 08:15 Blood Pressure 182/92 03/24/17 10:26 O2 Sat by Pulse Oximetry (%) 93 L 03/24/17 00:44 Labs: CBC, BMP 03/24/17 05:25 03/24/17 05:25 INR, PTT INR 0.92 (0.82-1.09) 03/22/17 17:30 Assessment/Plan cc confusion x 5-6 days HPI 66 year old female hsitory of hypertension, hld, tia and stroke, esrd ( on hemodialysis ), kidney transplant 2006. Patinet came with confusion. Patient was very lethargic and she has improved. Her blood pressure was very high and she was admitted for hypertensive urgency. Patient has been more alert but confused. She has no fever and no headhace. Family was at bed side and as per her mother, she do have memory problem and do get ocnfused at home. She has admission in past for similar problem Past Medical History as above PFH,FSH,ROS reviewe din chart PAST SURGICAL HISTORY: appendectomy, kidney transplant 2006 Social History: Smokin/2 PPD for 5 year at younger agei, denies drugs or alcohl Allergies codeine Allergy (Verified 10/31/16 10:47) promethazine HCl [From Phenergan] Allergy (Verified 10/31/16 10:47) ANAPHYLAXIS HOME MEDICATIONS: Home Medications Medication Instructions Recorded Atorvastatin Ca [Lipitor] 20 mg PO HS 11/12/15 Pantoprazole Sodium [Protonix] 20 mg PO DAILY 11/12/15 Levetiracetam [Keppra -] 250 mg PO BID 30 Days tablet 11/16/15 Metoprolol Tartrate [Lopressor -] 50 mg PO BID #60 tablet 11/17/15 Calcium Acetate [Phoslo -] 667 mg PO TIDCM 12/01/15 Clopidogrel Bisulfate [Plavix -] 75 mg PO DAILY tablet 11/03/16 Amlodipine Besylate [Norvasc -] 10 mg PO DAILY #30 tablet 01/20/17 Neurological Examination Alert follow command, speech is normal, orietned x 1 EOMI, pupils is reactive and face no asymmetry passed bedside swallow and three ounce of water moving all extremity reflex are generalized dimnished ct head unremarkable, multiple old stroke and white matter disease identified Assessment- AMS due to hypertensive encephalopathy and also she may be developing multi -infarct dementia leading to cogntiive dysfunction. Clinically Unlikely to be meningitis or seizure. She can not mri of brain. She is already on maximum medical therapy for stroke prevention, recently had carotid ultrasound was unremarkable. Plan- b12,foalte tsh were normal done recently - Mental status may recover once bp is back to normal, though prognosis is guarded as I suspect she may be developing multi infarct dementia - mri of brain cant be done - speech eval - pending - may start puree diet as she passed bedside swallowing - no need for eeg at thistime - follow up outpatient and consider adding aricept and namenda outpatient - thanks for consult Eric Shaikh MD
[2017-03-24 14:10] LABS: HBSAG SCREEN Negative (Negative); HEP A AB, IGM Negative (Negative); HEP B CORE AB, TOT Negative (Negative)
--- NOTE | 2017-03-24 15:16 | PN ---
Progress Note (short form) - Note Progress Note: Renal follow up for ESRD on HD with AMS Pt seen and examined at the bedside is awake and responds to questions today still confused s/p dialysis yesterday had fever yesterday Vital Signs Temperature 98 F 03/24/17 14:15 Pulse Rate 89 03/24/17 14:15 Respiratory Rate 18 03/24/17 14:15 Blood Pressure 170/86 03/24/17 14:15 O2 Sat by Pulse Oximetry (%) 93 L 03/24/17 00:44 Intake & Output 03/21/17 03/22/17 03/23/17 03/24/17 23:59 23:59 23:59 23:59 Intake Total 550 1100 Balance 550 1100 Weight 63.503 kg 71.305 kg NAD alert but groggy RRR CTA soft NT/ND No LE edema CBC, BMP 03/24/17 05:25 03/24/17 05:25 Current Medications Amlodipine Besylate (Norvasc -) 10 mg PO DAILY [facility] Aspirin (Ecotrin -) 81 mg PO DAILY [facility] Atorvastatin Calcium (Lipitor -) 20 mg PO HS [facility] Clopidogrel Bisulfate (Plavix -) 75 mg PO DAILY [facility] Heparin Sodium (Porcine) (Heparin -) 5,000 unit SQ TID [facility] Last Admin: 03/24/17 06:08 Dose: 5,000 unit CEFTRIAXONE 1 G/50 ML PREMIX (Ceftriaxone 1 Gm-D5w Bag) 50 mls @ 100 mls/hr IVPB DAILY [facility] Last Admin: 03/24/17 10:25 Dose: 100 mls/hr Insulin Aspart (Novolog Vial Sliding Scale -) 1 vial SQ ACHS [facility] PRN Reason: Protocol Last Admin: 03/24/17 12:10 Dose: Not Given Levetiracetam (Keppra -) 250 mg PO BID [facility] Metoprolol Tartrate (Lopressor Injection -) 5 mg IVPUSH Q4H PRN PRN Reason: HYPERTENSION Last Admin: 03/24/17 10:26 Dose: 5 mg Metoprolol Tartrate (Lopressor -) 50 mg PO BID [facility] Nifedipine (Procardia Xl -) 60 mg PO DAILY [facility] Pantoprazole Sodium (Protonix -) 20 mg PO DAILY [facility] 66 year old woman with PMhx of ESRD on HD, Hypertension, CVA/TIA, Hx of Renal Transplant now back on dialysis who presented with AMS that was progressively worsening. #AMS mental status improved today unlikely uremia related AMS given BUN was only 30 yesterday before dialysis continue empiric abx, follow up cultures #ESRD on Dialysis s/p dialysis yesterday, had infiltration doppler of AVF showed patent AVF next dialysis tomorrow #Lactic acidosis improved #Hypertension has not gotten oral BP meds until now given Nifedpine 60mg now d/c amlodpine as that is also a CCB can consider addition of BB such as labetalol or atenolol if bp still not well controlled Thank you Full consult to follow Nicolas Campoverde DO
--- NOTE | 2017-03-24 17:12 | CONSULT ---
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: CVA, Dementia, TIA Cardiovascular: Yes: HTN, Hyperlipdemia Gastrointestinal: Yes: Other Renal/: Yes: Renal Failure (on HD ()), Hemodialysis, Other (s/p DDRT 2006) ...: No Heme/Onc: Yes: Anemia Endocrine: Yes: Diabetes Mellitus - Past Surgical History Past Surgical History: Yes: Appendectomy, , Hysterectomy, Kidney Transplant (2006 [facility]) - Smoking History Smoking history: Unknown if ever smoked Have you smoked in the past 12 months: No Aproximately how many cigarettes per day: 0 - Alcohol/Substance Use Hx Alcohol Use: No - Social History ADL: Independent History of Recent Travel: No (traveled to [place] in August 2013) History - Admission Reason For Visit: HYPERTENSIVE URGENCY - Hearing Hearing: Normal Hearing Aide: No With Patient: No Speech Evaluation - Communication Primary Language: KINYARWANDA - Speech Characteristics Articulation: Yes: Precise - Language/Auditory Comprehension Observation: Comprehends Conversational Speech: Yes - Swallow Evaluation/Bedside Assessment Current Nutritional Intake: Dysphagia Pureed Oral Secretions: Yes: Dryness Tracheostomy Present: No Patient on Ventilator: No Dentition: Yes: Missing Teeth, Dental Appliance Upper Facial Symmetry at Rest: Symmetrical Facial Symmetry on Retraction: Symmetrical Sensation: Normal Jaw Position: Closed at Rest Pucker Lips: Normal Smile: Normal Lingual Movement: Normal Lingual Speed of Movement: Normal Lingual Movement Strgth Against Opposition: Normal Soft Palate Description: Normal Color Hard Palate Description: Normal Color Gag Reflex: Strong Bite Reflex: Absent Velopharyngeal Movement: Hypernasality Laryngeal Elevation: WFL Laryngeal Movement: Able to Palpate Rate of Intake: WFL Bolus Size: WFL Labial Seal: WFL Chewing: WFL Oral Prep Time: WFL A-P Transit: WFL Pocketing: None Timing of Swallow: WFL Coughing/Throat Clear: No Change in Voice: No Recommendations - Dysphagia Impressions/Plan Dysphagia Impressions: Minimal Impairment Dysphagia Evaluation Summary: This 65 year old female is able to tolerate thin liquids and soft chewable solids without signs of aspiration. 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 - Recommendations Diet Consistency: Dysphagia Whole Medication Administration: Crushed with applesauce Liquids: Thin Liquids
[2017-03-24] MEDS: METOPROLOL TARTRATE 50 MG TABLET (FP) PO SCH (22:32)
[2017-03-24] MEDS: levETIRAcetam 250 MG TABLET (FP) PO SCH (22:32)
[2017-03-24] MEDS: ATORVASTATIN CA 20 MG TABLET (FP) PO SCH (22:32)
[2017-03-25] MEDS ORDERED: VANCOMYCIN 1,000 MG in DEXTROSE 5%-WATER - 250 ML IVPB ONE (06:00)
[2017-03-25] MEDS: HEPARIN NA (PORCINE) 5,000 UNITS/ML 1ML VIAL SQ SCH ×3 (06:50→21:32)
[2017-03-25] MEDS: INSULIN SLIDING SCALE (NOVOLOG) 1 VIAL SQ SCH ×4 (06:50→21:37)
--- NOTE | 2017-03-25 09:26 | PN ---
Progress Note, Physician Chief Complaint: comfortable, no distress - Current Medication List Current Medications: Active Medications Amlodipine Besylate (Norvasc -) 10 mg PO DAILY [facility] Aspirin (Ecotrin -) 81 mg PO DAILY [facility] Atorvastatin Calcium (Lipitor -) 20 mg PO HS [facility] Last Admin: 03/24/17 22:32 Dose: 20 mg Clopidogrel Bisulfate (Plavix -) 75 mg PO DAILY [facility] Epoetin Twan (Procrit -) 6,000 unit IVPUSH ONCE ONE Stop: 03/25/17 06:01 Heparin Sodium (Porcine) (Heparin -) 5,000 unit SQ TID [facility] Last Admin: 03/25/17 06:50 Dose: 5,000 unit CEFTRIAXONE 1 G/50 ML PREMIX (Ceftriaxone 1 Gm-D5w Bag) 50 mls @ 100 mls/hr IVPB DAILY [facility] Last Admin: 03/24/17 10:25 Dose: 100 mls/hr Vancomycin HCl 1,000 mg/ (Dextrose) 250 mls @ 250 mls/hr IVPB ONCE ONE PRN Reason: Protocol Stop: 03/25/17 06:59 Insulin Aspart (Novolog Vial Sliding Scale -) 1 vial SQ ACHS [facility] PRN Reason: Protocol Last Admin: 03/25/17 06:50 Dose: 2 units Levetiracetam (Keppra -) 250 mg PO BID [facility] Last Admin: 03/24/17 22:32 Dose: 250 mg Metoprolol Tartrate (Lopressor Injection -) 5 mg IVPUSH Q4H PRN PRN Reason: HYPERTENSION Last Admin: 03/24/17 10:26 Dose: 5 mg Metoprolol Tartrate (Lopressor -) 50 mg PO BID [facility] Last Admin: 03/24/17 22:32 Dose: 50 mg Pantoprazole Sodium (Protonix -) 20 mg PO DAILY [facility] - Objective Vital Signs: Vital Signs Temperature 98.4 F 03/25/17 06:00 Pulse Rate 72 03/25/17 06:00 Respiratory Rate 18 03/25/17 06:00 Blood Pressure 137/68 03/25/17 06:00 O2 Sat by Pulse Oximetry (%) 92 L 03/24/17 21:00 Constitutional: Yes: No Distress Cardiovascular: Yes: Regular Rate and Rhythm Respiratory: Yes: CTA Bilaterally Gastrointestinal: Yes: Soft Edema: No Neurological: Yes: Alert, Oriented Labs: CBC, BMP 03/24/17 05:25 03/24/17 05:25 INR, PTT INR 0.92 (0.82-1.09) 03/22/17 17:30 - ....Imaging EKG: Image Reviewed (TELE:NSR with artifact) Assessment/Plan Assessment/Plan 66 year old woman with a history of HTN, HLD, CAD, valvular heart disease, Renal transplant 2006, ESRD on HD, CVAs/TIAs, multiple admissions for AMS pt was started on ASA in addition to her chronic plavix therapy on 11/17/15 based on spontaneous echo contrast that was seen on NARESH (not thrombus) and in the setting of prior CVA again admitted with AMS. HTN-severely uncontrolled on presentation, now well controlled -continue present therapy AMS/weakness-unclear etiology, multiple prior admissions with similar presentation -neurology to evaluate -full work up completed in past for cardiac source of embolism -NARESH was done 09/2015 to evaluate valvular abnormality and was felt to not be endocarditis or mass on MV but more likely a ruptured chordae therefore unlikely to be responsible for CVA -tele and ekgs on prior admissions have shown NSR, no arrhythmia -no events on tele on this admission so far
[2017-03-25] MEDS ORDERED: EPOETIN ALFA 3,000 UNIT/1 ML ML IVPUSH ONE (11:00)
[2017-03-25 11:51] LABS: HEMATOCRIT 30.2 % (32.4-45.2); HEMOGLOBIN 9.5 GM/dL (10.7-15.3); MCH 29.9 pg (25.7-33.7); MCHC 31.6 g/dl (32.0-36.0); MEAN CELL VOLUME 94.7 fl (80-96); MEAN PLT VOLUME 8.1 fl (7.5-11.1); PLATELET COUNT 148 K/MM3 (134-434); RBC 3.19 M/mm3 (3.60-5.2); RDW 16.2 % (11.6-15.6); WHITE BLOOD COUNT 9.1 K/mm3 (4.0-10.0)
[2017-03-25 12:16] LABS: ANION GAP 8 (8-16); BLOOD UREA NITROGEN 31 mg/dL (7-18); CALCIUM 7.2 mg/dL (8.5-10.1); CHLORIDE 101 mmol/L (98-107); CO2 27 mmol/L (21-32); GLUCOSE,RANDOM 94 mg/dL (74-106); PHOSPHOROUS 4.4 mg/dL (2.5-4.9); POTASSIUM 4.6 mmol/L (3.5-5.1); SODIUM 136 mmol/L (136-145)
[2017-03-25 12:38] LABS: CREATININE 7.8 mg/dL (0.55-1.02)
--- NOTE | 2017-03-25 13:20 | PN ---
Progress Note, Physician Chief Complaint: 66 year old woman with PMhx of ESRD on HD, Hypertension, CVA/TIA, Hx of Renal Transplant now back on dialysis who presented with altered mentation. The etiology of the change in mentation is obscure. She is back to normal mentation. Refuses to eat pureed food. demands regular food. Also noted that she is getting pureed potatoes, and this is contraindicated in her. She and her family knows everything that she can and she can't eat. Daughter visiting. - Current Medication List Current Medications: Active Medications Amlodipine Besylate (Norvasc -) 10 mg PO DAILY [facility] Aspirin (Ecotrin -) 81 mg PO DAILY [facility] Atorvastatin Calcium (Lipitor -) 20 mg PO HS [facility] Last Admin: 03/24/17 22:32 Dose: 20 mg Clopidogrel Bisulfate (Plavix -) 75 mg PO DAILY [facility] Heparin Sodium (Porcine) (Heparin -) 5,000 unit SQ TID [facility] Last Admin: 03/25/17 06:50 Dose: 5,000 unit CEFTRIAXONE 1 G/50 ML PREMIX (Ceftriaxone 1 Gm-D5w Bag) 50 mls @ 100 mls/hr IVPB DAILY [facility] Last Admin: 03/24/17 10:25 Dose: 100 mls/hr Insulin Aspart (Novolog Vial Sliding Scale -) 1 vial SQ ACHS [facility] PRN Reason: Protocol Last Admin: 03/25/17 11:55 Dose: Not Given Levetiracetam (Keppra -) 250 mg PO BID [facility] Last Admin: 03/24/17 22:32 Dose: 250 mg Metoprolol Tartrate (Lopressor Injection -) 5 mg IVPUSH Q4H PRN PRN Reason: HYPERTENSION Last Admin: 03/24/17 10:26 Dose: 5 mg Metoprolol Tartrate (Lopressor -) 50 mg PO BID [facility] Last Admin: 03/24/17 22:32 Dose: 50 mg Pantoprazole Sodium (Protonix -) 20 mg PO DAILY [facility] - Objective Vital Signs: Vital Signs Temperature 98.4 F 03/25/17 11:10 Pulse Rate 71 03/25/17 12:45 Respiratory Rate 18 03/25/17 12:45 Blood Pressure 144/103 03/25/17 12:45 O2 Sat by Pulse Oximetry (%) 99 03/25/17 09:10 Constitutional: Yes: No Distress, Calm Eyes: Yes: Conjunctiva Clear HENT: Yes: Normocephalic Neck: Yes: Supple Cardiovascular: Yes: S2 Respiratory: Yes: CTA Bilaterally, Diminished Gastrointestinal: Yes: Normal Bowel Sounds, Soft. No: Tenderness, Tenderness, Epigastrium Genitourinary: No: CVA Tenderness - Left, CVA Tenderness - Right Edema: No Neurological: Yes: Alert, Oriented. No: Confusion, Facial Droop, Lethargy, Tingling, Weakness Psychiatric: Yes: Alert, Oriented Labs: CBC, BMP 03/25/17 11:15 03/25/17 11:15 INR, PTT INR 0.92 (0.82-1.09) 03/22/17 17:30 Problem List - Problems (1) Altered mental status Code(s): R41.82 - ALTERED MENTAL STATUS, UNSPECIFIED (2) Arteriosclerotic heart disease (ASHD) Code(s): I25.10 - ATHSCL HEART DISEASE OF [place] CORONARY ARTERY W/O ANG PCTRS (3) Cerebrovascular accident (CVA) Code(s): I63.9 - CEREBRAL INFARCTION, UNSPECIFIED Qualifiers: CVA mechanism: unspecified Qualified Code(s): I63.9 - Cerebral infarction, unspecified (4) Diabetes mellitus Code(s): E11.9 - TYPE 2 DIABETES MELLITUS WITHOUT COMPLICATIONS Qualifiers: Diabetes mellitus type: type 1 Diabetes mellitus complication status: with unspecified complications Qualified Code(s): E10.8 - Type 1 diabetes mellitus with unspecified complications (5) ESRD (end stage renal disease) on dialysis Code(s): N18.6 - END STAGE RENAL DISEASE; Z99.2 - DEPENDENCE ON RENAL DIALYSIS (6) HLD (hyperlipidemia) Code(s): E78.5 - HYPERLIPIDEMIA, UNSPECIFIED (7) Valvular heart disease Code(s): I38 - ENDOCARDITIS, VALVE UNSPECIFIED Assessment/Plan 66 year old woman with PMhx of ESRD on HD, Hypertension, CVA/TIA, Hx of Renal Transplant rejection, now back on dialysis who presented with altered mentation. the mental status has improved. The patient is awake, alert and fully oriented. This menta change is highly unlikelely to be related to uremia given BUN was only 30 yesterday before dialysis. continue empiric abx, follow up cultures ESRD on Dialysis...On dialysis now. Orders reviewed with the RN. Access working well. Lactic acidosis improved Hypertension On Amlodipine and Lopressor. BP seems reasonably well controlled. The patient looks and feels normal now. Refuses to eat pureed diet. Will change to her usual diet. Julienne Lackey MD
[2017-03-25] MEDS: METOPROLOL TARTRATE 50 MG TABLET (FP) PO SCH ×2 (15:28→21:32)
[2017-03-25] MEDS: CEFTRIAXONE 1 G/50 ML PREMIX 50 ML IVPB SCH (15:28)
[2017-03-25] MEDS: PANTOPRAZOLE 20 MG TABLET (FP) PO SCH (15:28)
[2017-03-25] MEDS: CLOPIDOGREL BISULFATE 75 MG TABLET (FP) PO SCH (15:28)
[2017-03-25] MEDS: amLODIPine BESYLATE 10 MG TABLET (FP) PO SCH (15:28)
[2017-03-25] MEDS: ASPIRIN COATED 81 MG TABLET.EC PO SCH (15:28)
[2017-03-25] MEDS: levETIRAcetam 250 MG TABLET (FP) PO SCH ×2 (15:30→21:31)
--- NOTE | 2017-03-25 17:06 | PN ---
Physical Exam: SUBJECTIVE: Patient seen and examined Patient is alert awake with no acute distress. lying in her bed comfortably. OBJECTIVE: Vital Signs Temperature 98.2 F 03/25/17 15:27 Pulse Rate 78 03/25/17 15:27 Respiratory Rate 18 03/25/17 15:27 Blood Pressure 145/67 03/25/17 15:27 O2 Sat by Pulse Oximetry (%) 99 03/25/17 09:10 GENERAL: The patient is awake, alert, and fully oriented, in no acute distress. HEAD: Normal with no signs of trauma. EYES: PERRL, extraocular movements intact, sclera anicteric, conjunctiva clear. ENT: Ears normal, oropharynx clear without exudates, moist mucous membranes. NECK: Trachea midline, full range of motion, supple. LUNGS: Breath sounds equal, clear to auscultation bilaterally, no wheezes, no crackles, no accessory muscle use. HEART: Regular rate and rhythm, S1, S2 positive, NIRAV 3/6 ABDOMEN: Soft, nontender, nondistended, normoactive bowel sounds, no guarding, no rebound, no masses appreciated.. EXTREMITIES: 2+ pulses, warm, well-perfused, no edema. NEUROLOGICAL: Cranial nerves II through XII grossly intact. Normal speech, gait is not observed. PSYCH: Normal mood, normal affect. SKIN: Warm, dry, normal turgor, no rashes or lesions noted CBCD WBC 9.1 K/mm3 (4.0-10.0) 03/25/17 11:15 RBC 3.19 M/mm3 (3.60-5.2) L 03/25/17 11:15 Hgb 9.5 GM/dL (10.7-15.3) L 03/25/17 11:15 Hct 30.2 % (32.4-45.2) L 03/25/17 11:15 MCV 94.7 fl (80-96) 03/25/17 11:15 MCHC 31.6 g/dl (32.0-36.0) L 03/25/17 11:15 RDW 16.2 % (11.6-15.6) H 03/25/17 11:15 Plt Count 148 K/MM3 (134-434) 03/25/17 11:15 MPV 8.1 fl (7.5-11.1) 03/25/17 11:15 CMP Sodium 136 mmol/L (136-145) 03/25/17 11:15 Potassium 4.6 mmol/L (3.5-5.1) 03/25/17 11:15 Chloride 101 mmol/L (98-107) 03/25/17 11:15 Carbon Dioxide 27 mmol/L (21-32) 03/25/17 11:15 Anion Gap 8 (8-16) 03/25/17 11:15 BUN 31 mg/dL (7-18) H D 03/25/17 11:15 Creatinine 7.8 mg/dL (0.55-1.02) H* D 03/25/17 11:15 Creat Clearance w eGFR 7.65 (>60) 03/24/17 05:25 Random Glucose 94 mg/dL (74-106) D 03/25/17 11:15 Calcium 7.2 mg/dL (8.5-10.1) L 03/25/17 11:15 Total Bilirubin 0.8 mg/dL (0.2-1.0) D 03/24/17 05:25 AST 12 U/L (15-37) L 03/24/17 05:25 ALT 16 U/L (12-78) 03/24/17 05:25 Alkaline Phosphatase 50 U/L (45-117) 03/24/17 05:25 Total Protein 6.6 g/dl (6.4-8.2) 03/24/17 05:25 Albumin 3.0 g/dl (3.4-5.0) L 03/24/17 05:25 CARDIAC ENZYMES Creatine Kinase 68 IU/L (26-192) 03/22/17 17:30 Troponin I < 0.02 ng/ml (0.00-0.05) 03/22/17 17:30 Active Medications Generic Name Dose Route Start Last Admin Trade Name Freq PRN Reason Stop Dose Admin Amlodipine Besylate 10 mg 03/25/17 10:00 03/25/17 15:28 Norvasc - PO 10 mg DAILY [facility] Administration Aspirin 81 mg 03/25/17 10:00 03/25/17 15:28 Ecotrin - PO 81 mg DAILY [facility] Administration Atorvastatin Calcium 20 mg 03/24/17 22:00 03/24/17 22:32 Lipitor - PO 20 mg HS [facility] Administration Clopidogrel Bisulfate 75 mg 03/25/17 10:00 03/25/17 15:28 Plavix - PO 75 mg DAILY [facility] Administration Heparin Sodium (Porcine) 5,000 unit 03/23/17 22:00 03/25/17 15:28 Heparin - SQ 5,000 unit TID [facility] Administration CEFTRIAXONE 1 G/50 ML PREMIX 50 mls @ 100 mls/hr 03/23/17 10:15 03/25/17 15: 28 Ceftriaxone 1 Gm-D5w Bag IVPB 100 mls/hr DAILY [facility] Administration Insulin Aspart 1 vial 03/22/17 22:00 03/25/17 11:55 Novolog Vial Sliding Scale - SQ Not Given ACHS [facility] Protocol Levetiracetam 250 mg 03/24/17 22:00 03/25/17 15:30 Keppra - PO 250 mg BID [facility] Administration Metoprolol Tartrate 5 mg 03/23/17 17:57 03/24/17 10:26 Lopressor Injection - IVPUSH 5 mg Q4H PRN Administration HYPERTENSION Metoprolol Tartrate 50 mg 03/24/17 22:00 03/25/17 15:28 Lopressor - PO 50 mg BID [facility] Administration Pantoprazole Sodium 20 mg 03/25/17 10:00 03/25/17 15:28 Protonix - PO 20 mg DAILY [facility] Administration Home Medications Medication Instructions Recorded Atorvastatin Ca [Lipitor] 20 mg PO HS 11/12/15 Pantoprazole Sodium [Protonix] 20 mg PO DAILY 11/12/15 Levetiracetam [Keppra -] 250 mg PO BID 30 Days tablet 11/16/15 Metoprolol Tartrate [Lopressor -] 50 mg PO BID #60 tablet 11/17/15 Calcium Acetate [Phoslo -] 667 mg PO TIDCM 12/01/15 Clopidogrel Bisulfate [Plavix -] 75 mg PO DAILY tablet 11/03/16 Amlodipine Besylate [Norvasc -] 10 mg PO DAILY #30 tablet 01/20/17 Aspirin 81 mg PO DAILY 03/24/17 Nifedipine ER [Procardia XL -] 60 mg PO DAILY 03/24/17 Sodium Polystyrene Sulfonate 30 grams PO 03/24/17 [Kayexalate -] Microbiology 03/22/17 17:30 Blood - Peripheral Venous Blood Culture - Preliminary NO GROWTH OBTAINED AFTER 48 HOURS, INCUBATION TO CONTINUE FOR 3 DAYS. 03/22/17 17:30 Blood - Peripheral Venous Blood Culture - Preliminary NO GROWTH OBTAINED AFTER 48 HOURS, INCUBATION TO CONTINUE FOR 3 DAYS. ASSESSMENT/PLAN: Patient is a 66 year old woman with a history of HTN, HLD, CAD, valvular heart disease, Renal transplant 2006, ESRD on HD, CVAs/TIAs, presented to ED. with having acute change of mental status, with elevated systolic blood pressure of over 200's. # s/p Acute change of mental status multifactorial ; improved most likely due to metabolic encephalophy. CT of head no bleed, patient has a hx of CVA/TIAs. seen by neurologist and appreciated. As per char filter tank tender NARESH was done on 09/2015 , no mass or endocarditis was reported. will repeat the echo. Patient was started on Rocephin daily continue for now and vancomycin post HD for possible infection source, negative blood culture so far and patient does not make any urine. Discussed with and [place] who knows the patient from the previous admission. # HTN emergency improved BP now, will switch her back to her po meds. # Hx of CVA/TIA continue Plavix and aspirin 81mgpo daily continue # ESRD on HD , on the case, further management by nephro. #Valvular heart disease-stable . # CAD-stable outpatient follow up # Hx of Seizure on Keppra with po now. DVT Px: Heparin sq Visit type - Emergency Visit Emergency Visit: Yes ED Registration Date: 03/23/17 Care time: The patient presented to the Emergency Department on the above date and was hospitalized for further evaluation of their emergent condition. - New Patient This patient is new to me today: No - Critical Care Critical Care patient: No
[2017-03-25] MEDS: ATORVASTATIN CA 20 MG TABLET (FP) PO SCH (21:31)
[2017-03-26] MEDS: HEPARIN NA (PORCINE) 5,000 UNITS/ML 1ML VIAL SQ SCH (06:43)
[2017-03-26] MEDS: INSULIN SLIDING SCALE (NOVOLOG) 1 VIAL SQ SCH ×2 (06:47→11:06)
--- NOTE | 2017-03-26 09:50 | PN ---
Progress Note, Physician Chief Complaint: no distress or new complaints History of Present Illness: TELE: NSR - Current Medication List Current Medications: Active Medications Amlodipine Besylate (Norvasc -) 10 mg PO DAILY [facility] Last Admin: 03/25/17 15:28 Dose: 10 mg Aspirin (Ecotrin -) 81 mg PO DAILY [facility] Last Admin: 03/25/17 15:28 Dose: 81 mg Atorvastatin Calcium (Lipitor -) 20 mg PO HS [facility] Last Admin: 03/25/17 21:31 Dose: 20 mg Clopidogrel Bisulfate (Plavix -) 75 mg PO DAILY [facility] Last Admin: 03/25/17 15:28 Dose: 75 mg Heparin Sodium (Porcine) (Heparin -) 5,000 unit SQ TID [facility] Last Admin: 03/26/17 06:43 Dose: 5,000 unit CEFTRIAXONE 1 G/50 ML PREMIX (Ceftriaxone 1 Gm-D5w Bag) 50 mls @ 100 mls/hr IVPB DAILY [facility] Last Admin: 03/25/17 15:28 Dose: 100 mls/hr Insulin Aspart (Novolog Vial Sliding Scale -) 1 vial SQ ACHS [facility] PRN Reason: Protocol Last Admin: 03/26/17 06:47 Dose: Not Given Levetiracetam (Keppra -) 250 mg PO BID [facility] Last Admin: 03/25/17 21:31 Dose: 250 mg Metoprolol Tartrate (Lopressor Injection -) 5 mg IVPUSH Q4H PRN PRN Reason: HYPERTENSION Last Admin: 03/24/17 10:26 Dose: 5 mg Metoprolol Tartrate (Lopressor -) 50 mg PO BID [facility] Last Admin: 03/25/17 21:32 Dose: 50 mg Pantoprazole Sodium (Protonix -) 20 mg PO DAILY [facility] Last Admin: 03/25/17 15:28 Dose: 20 mg - Objective Vital Signs: Vital Signs Temperature 98.6 F 03/26/17 08:50 Pulse Rate 72 03/26/17 08:50 Respiratory Rate 18 03/26/17 08:50 Blood Pressure 167/72 03/26/17 08:50 O2 Sat by Pulse Oximetry (%) 99 03/26/17 08:50 Constitutional: Yes: No Distress Cardiovascular: Yes: Regular Rate and Rhythm Respiratory: Yes: CTA Bilaterally Gastrointestinal: Yes: Soft Edema: No Neurological: Yes: Alert Labs: CBC, BMP 03/25/17 11:15 03/25/17 11:15 INR, PTT INR 0.92 (0.82-1.09) 03/22/17 17:30 - ....Imaging EKG: Image Reviewed Assessment/Plan Assessment/Plan 66 year old woman with a history of HTN, HLD, CAD, valvular heart disease, Renal transplant 2006, ESRD on HD, CVAs/TIAs, multiple admissions for AMS pt was started on ASA in addition to her chronic plavix therapy on 11/17/15 based on spontaneous echo contrast that was seen on NARESH (not thrombus) and in the setting of prior CVA again admitted with AMS. HTN-severely uncontrolled on presentation, now well controlled -continue present therapy AMS/weakness-unclear etiology, multiple prior admissions with similar presentation -full work up completed in past for cardiac source of embolism -NARESH was done 09/2015 to evaluate valvular abnormality and was felt to not be endocarditis or mass on MV but more likely a ruptured chordae therefore unlikely to be responsible for CVA -tele and ekgs on prior admissions have shown NSR, no arrhythmia -no events on tele on this admission so far Further work up and dispo as per PMD
[2017-03-26] MEDS: levETIRAcetam 250 MG TABLET (FP) PO SCH (10:16)
[2017-03-26] MEDS: PANTOPRAZOLE 20 MG TABLET (FP) PO SCH (10:16)
[2017-03-26] MEDS: METOPROLOL TARTRATE 50 MG TABLET (FP) PO SCH (10:16)
[2017-03-26] MEDS: CLOPIDOGREL BISULFATE 75 MG TABLET (FP) PO SCH (10:16)
[2017-03-26] MEDS: CEFTRIAXONE 1 G/50 ML PREMIX 50 ML IVPB SCH (10:17)
[2017-03-26] MEDS: ASPIRIN COATED 81 MG TABLET.EC PO SCH (10:17)
[2017-03-26] MEDS: amLODIPine BESYLATE 10 MG TABLET (FP) PO SCH (10:17)
--- NOTE | 2017-03-26 12:28 | PN ---
Progress Note, Physician Chief Complaint: 66 year old woman with PMhx of ESRD on HD, Hypertension, CVA/TIA, Hx of Renal Transplant now back on dialysis who presented with altered mentation. The etiology of the change in mentation is obscure. But she is back to her normal mentation. Tolerates regular food. IV antibioics infusing. Had uneventful hemodialysis yesterday. - Current Medication List Current Medications: Active Medications Amlodipine Besylate (Norvasc -) 10 mg PO DAILY [facility] Last Admin: 03/26/17 10:17 Dose: 10 mg Aspirin (Ecotrin -) 81 mg PO DAILY [facility] Last Admin: 03/26/17 10:17 Dose: 81 mg Atorvastatin Calcium (Lipitor -) 20 mg PO HS [facility] Last Admin: 03/25/17 21:31 Dose: 20 mg Clopidogrel Bisulfate (Plavix -) 75 mg PO DAILY [facility] Last Admin: 03/26/17 10:16 Dose: 75 mg Heparin Sodium (Porcine) (Heparin -) 5,000 unit SQ TID [facility] Last Admin: 03/26/17 06:43 Dose: 5,000 unit CEFTRIAXONE 1 G/50 ML PREMIX (Ceftriaxone 1 Gm-D5w Bag) 50 mls @ 100 mls/hr IVPB DAILY [facility] Last Admin: 03/26/17 10:17 Dose: 100 mls/hr Insulin Aspart (Novolog Vial Sliding Scale -) 1 vial SQ ACHS [facility] PRN Reason: Protocol Last Admin: 03/26/17 11:06 Dose: Not Given Levetiracetam (Keppra -) 250 mg PO BID [facility] Last Admin: 03/26/17 10:16 Dose: 250 mg Metoprolol Tartrate (Lopressor Injection -) 5 mg IVPUSH Q4H PRN PRN Reason: HYPERTENSION Last Admin: 03/24/17 10:26 Dose: 5 mg Metoprolol Tartrate (Lopressor -) 50 mg PO BID [facility] Last Admin: 03/26/17 10:16 Dose: 50 mg Pantoprazole Sodium (Protonix -) 20 mg PO DAILY [facility] Last Admin: 03/26/17 10:16 Dose: 20 mg - Objective Vital Signs: Vital Signs Temperature 98.6 F 03/26/17 08:50 Pulse Rate 72 03/26/17 08:50 Respiratory Rate 18 03/26/17 08:50 Blood Pressure 167/72 03/26/17 08:50 O2 Sat by Pulse Oximetry (%) 99 03/26/17 08:50 Constitutional: Yes: No Distress, Calm Eyes: Yes: Conjunctiva Clear HENT: Yes: Atraumatic, Normocephalic Neck: Yes: Trachea Midline Cardiovascular: Yes: S1, S2 Respiratory: Yes: CTA Bilaterally, Diminished Gastrointestinal: Yes: Normal Bowel Sounds, Soft Edema: No Neurological: Yes: Alert Psychiatric: Yes: Alert, Oriented Labs: CBC, BMP 03/25/17 11:15 03/25/17 11:15 INR, PTT INR 0.92 (0.82-1.09) 03/22/17 17:30 Problem List - Problems (1) Altered mental status Code(s): R41.82 - ALTERED MENTAL STATUS, UNSPECIFIED (2) Arteriosclerotic heart disease (ASHD) Code(s): I25.10 - ATHSCL HEART DISEASE OF [place] CORONARY ARTERY W/O ANG PCTRS (3) Cerebrovascular accident (CVA) Code(s): I63.9 - CEREBRAL INFARCTION, UNSPECIFIED Qualifiers: CVA mechanism: unspecified Qualified Code(s): I63.9 - Cerebral infarction, unspecified (4) Diabetes mellitus Code(s): E11.9 - TYPE 2 DIABETES MELLITUS WITHOUT COMPLICATIONS Qualifiers: Diabetes mellitus type: type 1 Diabetes mellitus complication status: with unspecified complications Qualified Code(s): E10.8 - Type 1 diabetes mellitus with unspecified complications (5) ESRD (end stage renal disease) on dialysis Code(s): N18.6 - END STAGE RENAL DISEASE; Z99.2 - DEPENDENCE ON RENAL DIALYSIS (6) HLD (hyperlipidemia) Code(s): E78.5 - HYPERLIPIDEMIA, UNSPECIFIED (7) Valvular heart disease Code(s): I38 - ENDOCARDITIS, VALVE UNSPECIFIED Assessment/Plan 66 year old woman with PMhx of ESRD on HD, Hypertension, CVA/TIA, Hx of Renal Transplant rejection, now back on dialysis who presented with altered mentation. The mental status has improved. The patient is awake, alert and fully oriented. ESRD on Dialysis...Had uneventful HD yesterday. Next dialysis onTuesday. Access working well. Lactic acidosis. Has improved Hypertension On Amlodipine and Lopressor. BP seems reasonably well controlled. The patient looks and feels normal now. To complete Abx course. Will follow with you. Julienne Lackey MD
--- NOTE | 2017-03-26 12:41 | PN ---
Teaching Attending Note Name of Resident: Christian Foster ATTENDING PHYSICIAN STATEMENT I saw and evaluated the patient. I reviewed the resident's note and discussed the case with the resident. I agree with the resident's findings and plan as documented. SUBJECTIVE: Patient is feeling better today, awake, alert comfortably sitting on the chair having her lunch. OBJECTIVE: Vital Signs Temperature 98.6 F 03/26/17 08:50 Pulse Rate 72 03/26/17 08:50 Respiratory Rate 18 03/26/17 08:50 Blood Pressure 167/72 03/26/17 08:50 O2 Sat by Pulse Oximetry (%) 99 03/26/17 08:50 CBCD WBC 9.1 K/mm3 (4.0-10.0) 03/25/17 11:15 RBC 3.19 M/mm3 (3.60-5.2) L 03/25/17 11:15 Hgb 9.5 GM/dL (10.7-15.3) L 03/25/17 11:15 Hct 30.2 % (32.4-45.2) L 03/25/17 11:15 MCV 94.7 fl (80-96) 03/25/17 11:15 MCHC 31.6 g/dl (32.0-36.0) L 03/25/17 11:15 RDW 16.2 % (11.6-15.6) H 03/25/17 11:15 Plt Count 148 K/MM3 (134-434) 03/25/17 11:15 MPV 8.1 fl (7.5-11.1) 03/25/17 11:15 CMP Sodium 136 mmol/L (136-145) 03/25/17 11:15 Potassium 4.6 mmol/L (3.5-5.1) 03/25/17 11:15 Chloride 101 mmol/L (98-107) 03/25/17 11:15 Carbon Dioxide 27 mmol/L (21-32) 03/25/17 11:15 Anion Gap 8 (8-16) 03/25/17 11:15 BUN 31 mg/dL (7-18) H D 03/25/17 11:15 Creatinine 7.8 mg/dL (0.55-1.02) H* D 03/25/17 11:15 Creat Clearance w eGFR 7.65 (>60) 03/24/17 05:25 Random Glucose 94 mg/dL (74-106) D 03/25/17 11:15 Calcium 7.2 mg/dL (8.5-10.1) L 03/25/17 11:15 Total Bilirubin 0.8 mg/dL (0.2-1.0) D 03/24/17 05:25 AST 12 U/L (15-37) L 03/24/17 05:25 ALT 16 U/L (12-78) 03/24/17 05:25 Alkaline Phosphatase 50 U/L (45-117) 03/24/17 05:25 Total Protein 6.6 g/dl (6.4-8.2) 03/24/17 05:25 Albumin 3.0 g/dl (3.4-5.0) L 03/24/17 05:25 CARDIAC ENZYMES Creatine Kinase 68 IU/L (26-192) 03/22/17 17:30 Troponin I < 0.02 ng/ml (0.00-0.05) 03/22/17 17:30 Current Medications Generic Name Dose Route Start Last Admin Trade Name Lars PRN Reason Stop Dose Admin Amlodipine Besylate 10 mg 03/25/17 10:00 03/26/17 10:17 Norvasc - PO 10 mg DAILY [facility] Administration Aspirin 81 mg 03/25/17 10:00 03/26/17 10:17 Ecotrin - PO 81 mg DAILY [facility] Administration Atorvastatin Calcium 20 mg 03/24/17 22:00 03/25/17 21:31 Lipitor - PO 20 mg HS [facility] Administration Clopidogrel Bisulfate 75 mg 03/25/17 10:00 03/26/17 10:16 Plavix - PO 75 mg DAILY [facility] Administration Heparin Sodium (Porcine) 5,000 unit 03/23/17 22:00 03/26/17 06:43 Heparin - SQ 5,000 unit TID [facility] Administration CEFTRIAXONE 1 G/50 ML PREMIX 50 mls @ 100 mls/hr 03/23/17 10:15 03/26/17 10: 17 Ceftriaxone 1 Gm-D5w Bag IVPB 100 mls/hr DAILY [facility] Administration Insulin Aspart 1 vial 03/22/17 22:00 03/26/17 11:06 Novolog Vial Sliding Scale - SQ Not Given ACHS [facility] Protocol Levetiracetam 250 mg 03/24/17 22:00 03/26/17 10:16 Keppra - PO 250 mg BID [facility] Administration Metoprolol Tartrate 5 mg 03/23/17 17:57 03/24/17 10:26 Lopressor Injection - IVPUSH 5 mg Q4H PRN Administration HYPERTENSION Metoprolol Tartrate 50 mg 03/24/17 22:00 03/26/17 10:16 Lopressor - PO 50 mg BID [facility] Administration Pantoprazole Sodium 20 mg 03/25/17 10:00 03/26/17 10:16 Protonix - PO 20 mg DAILY [facility] Administration Home Medications Medication Instructions Recorded Atorvastatin Ca [Lipitor] 20 mg PO HS 11/12/15 Pantoprazole Sodium [Protonix] 20 mg PO DAILY 11/12/15 Levetiracetam [Keppra -] 250 mg PO BID 30 Days tablet 11/16/15 Metoprolol Tartrate [Lopressor -] 50 mg PO BID #60 tablet 11/17/15 Calcium Acetate [Phoslo -] 667 mg PO TIDCM 12/01/15 Clopidogrel Bisulfate [Plavix -] 75 mg PO DAILY tablet 11/03/16 Amlodipine Besylate [Norvasc -] 10 mg PO DAILY #30 tablet 01/20/17 Aspirin 81 mg PO DAILY 03/24/17 Nifedipine ER [Procardia XL -] 60 mg PO DAILY 03/24/17 Sodium Polystyrene Sulfonate 30 grams PO 03/24/17 [Kayexalate -] Microbiology 03/22/17 17:30 Blood - Peripheral Venous Blood Culture - Preliminary NO GROWTH OBTAINED AFTER 72 HOURS, INCUBATION TO CONTINUE FOR 2 DAYS. 03/22/17 17:30 Blood - Peripheral Venous Blood Culture - Preliminary NO GROWTH OBTAINED AFTER 72 HOURS, INCUBATION TO CONTINUE FOR 2 DAYS. ASSESSMENT AND PLAN: Patient is a 66 year old woman with a history of HTN, HLD, CAD, valvular heart disease, Renal transplant 2006, ESRD on HD, CVAs/TIAs, presented to ED. with having acute change of mental status, with elevated systolic blood pressure of over 200's. # s/p Acute change of mental status multifactorial ; improved most likely due to metabolic encephalopathy. CT of head no bleed, patient has a hx of CVA/ TIAs. seen by neurologist and appreciated. As per ed manager NARESH was done on 09/2015 , no mass or endocarditis was reported. will repeat the echo. Patient was started on Rocephin will discontinue and discharge her on oral ceftin x 4 more days, negative blood culture so far and patient does not make any urine. Discussed with Antoni gonzalez for , is ok to discharge the patient and [place] who knows the patient from the previous admission. # HTN emergency improved BP now, will switch her back to her po meds and discharge the patient home. # Hx of CVA/TIA continue Plavix and aspirin 81mg po daily continue # ESRD on HD , on the case, further management by nephro. #Valvular heart disease-stable . # CAD-stable outpatient follow up # Hx of Seizure on Keppra with po now. DVT Px: Heparin sq will discharge the patient home today.
--- NOTE | 2017-03-26 13:01 | DS ---
Physical Exam: SUBJECTIVE: Patient seen and examined No acute events overnight. She denies headache, blurry vision, chest pain, SOB, abdominal pain, n/v/d/c, and dysuria. OBJECTIVE: Vital Signs Period Temp Pulse Resp BP Sys/Travis Pulse Ox Last 24 Hr 98.1 F-98.8 F 61-80 17-18 133-167/66-80 99-99 PHYSICAL EXAM GENERAL: The patient is awake, alert, AAOx3, in no acute distress. HEENT: NC, AT NECK: Trachea midline, full range of motion, supple. LUNGS: Breath sounds equal, clear to auscultation bilaterally, no wheezes, no crackles, no accessory muscle use. HEART: systolic murmur ABDOMEN: Soft, nontender, nondistended, normoactive bowel sounds, no guarding, no rebound, no hepatosplenomegaly, no masses. EXTREMITIES: 2+ pulses, warm, well-perfused, no edema. NEUROLOGICAL: Cranial nerves II through XII grossly intact. Normal speech, gait not observed. LABS Laboratory Results - last 24 hr 03/25/17 03/25/17 03/26/17 17:40 21:29 06:45 POC Glucometer 122 174 139 03/26/17 10:59 POC Glucometer 137 Microbiology 03/22/17 17:30 Blood - Peripheral Venous Blood Culture - Preliminary NO GROWTH OBTAINED AFTER 72 HOURS, INCUBATION TO CONTINUE FOR 2 DAYS. 03/22/17 17:30 Blood - Peripheral Venous Blood Culture - Preliminary NO GROWTH OBTAINED AFTER 72 HOURS, INCUBATION TO CONTINUE FOR 2 DAYS. HOSPITAL COURSE: Date of Admission:03/23/17 Date of Discharge: 03/26/17 66F with a PMHx of HTN, HLD, TIA , CVA, DM, ESRD (HD T,TH,S), kidney transplant 2006, who presented with one day history of AMS, N/V, and was found to have hypertensive emergency. Her AMS was likely multifactorial from hypertensive emergency, UTI, and metabolic abnormalities. She was treated with IV lopressor and started on empiric ceftriaxone for suspected UTI. A head CT and abdominal CT showed no acute abnormalities. Pt refused straight cath for UA , Ucx, and urine tox screen. Pt seen by cardiology, neurology, and nephrology. Pt's mental status improved dramatically on medications and BP decreased to within normal limits. Once able to tolerate po, her meds were all changed back to po. Today, pt is hemodynamically stable, without subjective complaints, a benign physical exam, and is ready for discharge home with VNS. Pt instructed to finish course of abx and to f/u with PCP, cardiology, nephrology, and neurology. -Christian Foster MD PGY1 Minutes to complete discharge: 36 Discharge Summary Reason For Visit: HYPERTENSIVE URGENCY Current Active Problems Altered mental status (Acute) Hypertensive urgency (Acute) Nausea & vomiting (Acute) Cerebrovascular accident (CVA) (Chronic) Diabetes mellitus (Chronic) ESRD (end stage renal disease) on dialysis (Chronic) HLD (hyperlipidemia) (Chronic) Renal failure (Chronic) Seizure disorder as sequela of cerebrovascular accident (Chronic) Valvular heart disease (Chronic) Condition: Stable - Instructions Diet, Activity, Other Instructions: You presented with confusion and profuse vomiting and were found to have extremely high blood pressure. Your blood pressure was treated with IV medications and you were given antibiotics for a possible infection. Your confusion resolved, and you were switched back to your home regimen of blood pressure medications. Medications: Continue taking all previous medications except: 1. Take ceftin 250mg twice a day for 3 more days Followups: 1. Please visit your PCP, Dr. Lutz, within one week. 2. Please visit your recorder of deeds, Dr. Campoverde, within one week. 3. Please visit your manager oncology, Dr. Moctezuma, within one week. 4. Please visit your neurologist, Dr. Shaikh, within one week. Make sure to take all your medications as prescribed to prevent recurrent episodes of severely high blood pressure! If you develop any confusion, fevers, chills, chest pain, shortness of breath, or any other concerning symptoms, return to the ED. Referrals: Eric Shaikh MD [Staff Physician] - 1 Week Loren Lutz MD [Primary Care Provider] - 1 Week Joselito Tovar MD [Staff Physician] - 1 Week Nicolas Campoverde MD [Staff Physician] - 1 Week Disposition: VNS/HOME HEALTH CARE - Home Medications Comprehensive Discharge Medication List: Ambulatory Orders Atorvastatin Ca [Lipitor] 20 mg PO HS 11/12/15 Pantoprazole Sodium [Protonix] 20 mg PO DAILY 11/12/15 Levetiracetam [Keppra -] 250 mg PO BID 30 Days tablet 11/16/15 Metoprolol Tartrate [Lopressor -] 50 mg PO BID #60 tablet 11/17/15 Calcium Acetate [Phoslo -] 667 mg PO TIDCM 12/01/15 Clopidogrel Bisulfate [Plavix -] 75 mg PO DAILY tablet 11/03/16 Amlodipine Besylate [Norvasc -] 10 mg PO DAILY #30 tablet 01/20/17 Aspirin 81 mg PO DAILY 03/24/17 Nifedipine ER [Procardia XL -] 60 mg PO DAILY 03/24/17 Sodium Polystyrene Sulfonate [Kayexalate -] 30 grams PO 03/24/17 Cefuroxime Axetil [Ceftin -] 250 mg PO BID #6 tablet 03/26/17 This patient is new to me today: No Emergency Visit: Yes ED Registration Date: 03/23/17 Care time: The patient presented to the Emergency Department on the above date and was hospitalized for further evaluation of their emergent condition. Critical Care patient: No - Discharge Referral Referred to [facility] Med [facility] No
[2017-03-26 14:40] VITALS: BP 148/68; PULSE 71; TEMP 98.4
== END 2017-03-26 17:57 | disposition home health service (06) | DRG 52 ==
LOC: JER 16:38 → JERBED 20:18 → J4W 03-23 02:14 → OBSVTOIN 03-23 09:59
PROVIDERS: ADMIT Internal Medicine; ATTEND Internal Medicine
PROC: 5A1D90Z Performance of Urinary Filtration, Continuous, Greater than 18 hours Per Day (ICD-10-PCS; principal; 2017-03-25)
DX: I67.4 Hypertensive encephalopathy (principal); I12.0 Hypertensive chronic kidney disease with stage 5 chronic kidney disease or end stage renal disease; E11.22 Type 2 diabetes mellitus with diabetic chronic kidney disease; N18.6 End stage renal disease; Z99.2 Dependence on renal dialysis; N39.0 Urinary tract infection, site not specified; R41.82 Altered mental status, unspecified; E78.5 Hyperlipidemia, unspecified; I25.10 Atherosclerotic heart disease of native coronary artery without angina pectoris; E87.2 Acidosis; Z86.73 Personal history of transient ischemic attack (TIA), and cerebral infarction without residual deficits; E87.5 Hyperkalemia; E87.1 Hypo-osmolality and hyponatremia; I16.1 Hypertensive emergency; Z91.14 Patient's other noncompliance with medication regimen; G93.41 Metabolic encephalopathy
CPT/HCPCS: 36415; 70450-TC; 71045-TC; 74176-TC; 80048; 80053; 82140; 82550; 82565; 82803; 82962; 83036; 83605; 83735; 84100; 84443; 84484; 84520; 85025; 85027; 85610; 85730; 86140; 86704; 86706; 86708; 86803; 86850; 86900; 86901; 87040; 87340; 93005; 93010; 93306-TC; 93971; 99284-25; G0378; G0480; J0885; J1644

== ENCOUNTER 2017-05-02 10:36 | Inpatient (IN) | payer OTHER ==
[2017-05-02 10:52] VITALS: BMI 25.3
[2017-05-02] MEDS ORDERED: LABETALOL HCL 5 MG/1 ML (100MG/20 ML VIAL) IVPUSH ONE (11:07)
--- NOTE | 2017-05-02 11:07 | PDOC ---
History of Present Illness - History of Present Illness Initial Comments: 05/02/17 13:23 The patient is a 66 year old female with a significant PMH of ESRD (on dialysis T, Th, S), multiple TIAs,HTN, HL, GERD, prior failed kidney transplant in the past who presents to the emergency department via EMS for evaluation of AMS after finishing dialysis today. It is unclear when the AMS started. The patient is not responding to commands and occasionally nods her head to questions. On arrival she also seem to be ignoring her L side. The patient was last seen at our facility on 03/22/17 for altered mental status. The patient is primarily looking to the right. Code thompson was activated. Unclear excact time of onset as EMS noted cheif complaint was hypertension The patient denies abdominal pain, chest pain, shortness of breath, headache and dizziness. Denies fever, chills, nausea, vomit, diarrhea and constipation. Denies dysuria, frequency, urgency and hematuria. Allergies: NKA Past surgical history: appendectomy, failed kidney transplant in 2006 Social history: No reported alcohol, cigarette or drug use. PCP: Dr. Loren Lutz <Breanna Alcocer - Last Filed: 05/02/17 13:34> - General History Source: Patient, EMS Exam Limitations: Clinical Condition <Luis Escalona - Last Filed: 05/02/17 18:40> - General Chief Complaint: Weakness Stated Complaint: hypertension after dialysis Time Seen by Provider: 05/02/17 10:45 NIH Stroke Scale - Last Known Well Date/Time & Onset Date Last Known Well: 05/02/17 Time Last Known Well: 08:30 - Initial Evaluation Level of consciousness: Alert Ask patient the month and their age: Answers both correctly Ask patient to open & close eyes; make fist and let go: Obeys both correctly Best gaze (horizontal eye movement): Normal Visual field testing: No visual field loss Facial paresis (Show teeth/raise eyebrows/close eyes tight): Normal symmetrical movement Motor Function: Left Arm: Untestable (Joint fused orlimb amputated), explain: ( pt noncooperaative, not lifting for entire 10 seconds, but moving spontaneously) Motor Function: Right Arm: Untestable (Joint fused or limb amputated), explain : (pt noncooperaative, not lifting for entire 10 seconds, but moving spontaneously) Motor Function: Left Leg: Untestable (Joint fused or limb amputated), explain: (pt noncooperaative, not lifting for entire 5 seconds, but moving spontaneously) Motor Function: Right Leg: Untestable )Joint fused orlimb amputated), explain: (pt noncooperaative, not lifting for entire 5 seconds, but moving spontaneously) Limb Ataxia: Untestable (Joint fused or limb amputated), explain: ( noncooperative) Sensory(Use pinprick test arms,legs,trunk,face/side to side): Normal Best language (Describe picture, name items, read sentences): No Aphasia Dysarthria (read several words): Normal articulation Extinction and Inattention: No abnormality - Total Score NIH Stroke Scale Score: 0 <Luis Escalona - Last Filed: 05/02/17 18:40> tPA Exclusion Checklist 0-3hr - Time Elapsed Date last known well: 05/02/17 Time last known well: 08:30 Elaspsed time: Day(s) and 10 Hour(s) and 9 Minutes - Thrombolytic Therapy Candidate Is the patient eligible for Thrombolytic Therapy?: No - Exclusion Criteria 0-3hr SBP greater than 185 or DBP greater than 110mmHg despite tx: Yes - Relative Exclusion Criteria 0-3h Rapid improvement: Yes - Ineligibility reason(s) Reasons No tPA given: See reason(s) noted above <Luis Escalona - Last Filed: 05/02/17 18:40> Past History <Breanna Alcocer - Last Filed: 05/02/17 13:34> - Past Medical History Anemia: Yes Asthma: No Cancer: No Cardiac Disorders: Yes (chronic ischemic heart ds,) CVA: Yes (L sided weakness) COPD: No CHF: No Dementia: No Diabetes: Yes Dialysis: Yes (FISTULA L UPPER ARM, KIDNEY TRANSPLANT) GI Disorders: Yes (GERD) Disorders: Yes (ESRD dyalisis on MON,WED,FRI) HTN: Yes Hypercholesterolemia: Yes Liver Disease: No Seizures: Yes (hyper) Thyroid Disease: No Other medical history: hyperkalemia,vit D deficiency - Surgical History Abdominal Surgery: Yes Appendectomy: Yes Neurologic Surgery: No - Immunization History Immunization Up to Date: Yes - Suicide/Smoking/Psychosocial Hx Smoking Status: No Smoking History: Unknown if ever smoked Have you smoked in the past 12 months: No Number of Cigarettes Smoked Daily: 0 Information on smoking cessation initiated: No Hx Alcohol Use: No Drug/Substance Use Hx: No Substance Use Type: None Hx Substance Use Treatment: No <IqraLuis leon - Last Filed: 05/02/17 18:40> - Past Medical History Allergies/Adverse Reactions: Allergies Allergy/AdvReac Type Severity Reaction Status Date / Time codeine Allergy Verified 05/02/17 10:51 promethazine HCl Allergy Verified 05/02/17 10:51 [From Phenergan] Home Medications: Ambulatory Orders Atorvastatin Ca [Lipitor] 20 mg PO HS 11/12/15 Pantoprazole Sodium [Protonix] 20 mg PO DAILY 11/12/15 levETIRAcetam [Keppra -] 250 mg PO BID 30 Days tablet 11/16/15 Metoprolol Tartrate [Lopressor -] 50 mg PO BID #60 tablet 11/17/15 Calcium Acetate [Phoslo -] 667 mg PO TIDCM 12/01/15 Clopidogrel Bisulfate [Plavix -] 75 mg PO DAILY tablet 11/03/16 Amlodipine Besylate [Norvasc -] 10 mg PO DAILY #30 tablet 01/20/17 Aspirin 81 mg PO DAILY 03/24/17 Nifedipine ER [Procardia XL -] 60 mg PO DAILY 03/24/17 Sodium Polystyrene Sulfonate [Kayexalate -] 30 grams PO 03/24/17 Cefuroxime Axetil [Ceftin -] 250 mg PO BID #6 tablet 03/26/17 Epoetin Twan [Epogen] 4,000 unit IV WEEKLY 05/02/17 Review of Systems - Review of Systems Able to Perform ROS?: No (Limited to clinical cond.) <Breanna Alcocer - Last Filed: 05/02/17 13:34> *Physical Exam - Vital Signs Last Vital Signs Temp Pulse Resp BP Pulse Ox 97.9 F 86 24 187/109 99 05/02/17 10:39 05/02/17 13:20 05/02/17 13:20 05/02/17 13:20 05/02/17 13:20 - Physical Exam Comments: 05/02/17 13:33 Constitutional: Awake and Alert. x 2 Noncooperative. No acute distress. Head: Normocephalic. Atraumatic Eyes: Pupils at 4mm and reactive bilaterally. EOMI. Conjunctivae not pale. ENT: Mucous membranes are moist and intact. Neck: Supple. Full ROM. No lymphadenopathy. Cardiovascular: Regular rate. Regular rhythm. S1, S2 regular. Distal pulses are 2+ and symmetric. Pulmonary/Chest: Diminished breath sounds at the bases bilaterally, No wheezing , rales or rhonchi. Abdominal: Soft and non-distended. There is no tenderness. No rebound, guarding or rigidity. No organomegaly. No palpable masses. Good bowel sounds. Back: No CVA tenderness. Musculoskeletal: Left upper extremity AV fistula with bruit and thrill. No edema. No cyanosis. not following commands. No calf tenderness. Radial/pedal pulses are intact and 2+ bilaterally Skin: Skin is warm and dry. No petechiae. No purpura. Neurological: Alert and orientation x2 (self, place) Cranial nerves II-XII are grossly intact. Normal speech. Strength is grossly intact, however pt is not cooperative with exam. sensation intact bilaterally Psychiatric: Good eye contact. Slow to respond <Breanna Alcocer - Last Filed: 05/02/17 13:34> - Vital Signs Last Vital Signs Temp Pulse Resp BP Pulse Ox 97.9 F 74 18 200/95 100 05/02/17 10:39 05/02/17 10:39 05/02/17 10:39 05/02/17 10:39 05/02/17 10:39 <Luis Escalona - Last Filed: 05/02/17 18:40> Heart Score/ECG Review - ECG Impressions Comment:: 05/02/17 18:39 Twelve-lead EKG was performed and reviewed by me. There is normal sinus rhythm with a normal rate. Rate of 82 PACs with aberrency artifacts present <Luis Escalona - Last Filed: 05/02/17 18:40> ED Treatment Course - LABORATORY CBC & Chemistry Diagram: 05/02/17 11:40 05/02/17 11:40 - ADDITIONAL ORDERS Additional order review: Laboratory Results 05/02/17 05/02/17 05/02/17 11:40 11:40 11:40 PT with INR INR Sodium 134 L Cancelled Potassium 5.2 H Cancelled Chloride 99 Cancelled Carbon Dioxide 25 Cancelled Anion Gap 10 Cancelled BUN 13 Cancelled Creatinine 4.5 H Cancelled Creat Clearance w eGFR 9.84 Cancelled Random Glucose 185 H Cancelled Calcium 8.6 Cancelled Total Bilirubin 0.6 D Cancelled AST 26 Cancelled ALT 33 Cancelled Alkaline Phosphatase 70 Cancelled Creatine Kinase 65 Cancelled Troponin I < 0.02 Cancelled Total Protein 8.5 H Cancelled Albumin 4.1 Cancelled Triglycerides 156 Cancelled Cholesterol 140 Cancelled Total LDL Cholesterol 72 Cancelled HDL Cholesterol 55 Cancelled Blood Type Cancelled Antibody Screen Cancelled 05/02/17 11:40 PT with INR 11.00 INR 0.97 Sodium Potassium Chloride Carbon Dioxide Anion Gap BUN Creatinine Creat Clearance w eGFR Random Glucose Calcium Total Bilirubin AST ALT Alkaline Phosphatase Creatine Kinase Troponin I Total Protein Albumin Triglycerides Cholesterol Total LDL Cholesterol HDL Cholesterol Blood Type Antibody Screen 05/02/17 11:40 RBC 4.36 D MCV 96.8 H MCHC 32.4 RDW 17.4 H MPV 8.1 Neutrophils % 64.5 Lymphocytes % 15.1 Monocytes % 9.1 Eosinophils % 10.9 H Basophils % 0.4 - Medications Given in the ED: ED Medications Discontinued Medications Generic Name Dose Route Start Last Admin Trade Name Freq PRN Reason Stop Dose Admin Labetalol HCl 10 mg 05/02/17 11:07 05/02/17 12:32 Normodyne Injection - IVPUSH 05/02/17 11:08 10 mg ONCE ONE Administration <Breanna Alcocer - Last Filed: 05/02/17 13:34> - LABORATORY CBC & Chemistry Diagram: 05/02/17 11:40 05/02/17 11:40 - RADIOLOGY Radiology Studies Ordered: Category Date Time Status HEAD CT (STROKE) [CT] Stat CT Scan 05/02/17 11:05 Ordered <Luis Escalona - Last Filed: 05/02/17 18:40> Medical Decision Making - Medical Decision Making 05/02/17 11:18 66y F hx of ESRD (dialysis ,,), mulitple TIAs, HTN, HL, GERD, prior failed kidney transplant, presents with hypertension and AMS. Per EMS, pt completed her dialysis today.Unclear when her AMS started. pt notably hypertensive to 200/95 here Code donna called upon initial evalution clive dwyer when this started, but i will confirm with dialysis center ct head/labs will treat her BP 05/02/17 11:40 Speaking with nurse Jeffery Jaeger at [facility] pt was noted to be altered around ~8:30-8:45, after completing her dialysis. he saw her looking around and confused, did not notice any unilateral weakness or hemineglect. bp was normal as far as he remembers.EMs was dalled for her confusion. He also recalls her being able to take 2 steps over from a seat to a stretcher. No bleed on CT head Pt is combative though, ao x 2 with me, and no longer shows heminegect upon returning from CT bp slightly improved pt not cooperative with exam though. ddx hypertensive encephalopathy vs cva/tia case was dw dr. Johnson will defer TPA for now due to rapidly improving sypmtoms, significant HTN 05/02/17 12:25 LImited NIHSS due to noncoperation 05/02/17 14:33 cased w [facility] Reg agree with admission for further management of hypertensive encelopathy vs TIA will admit to noncardiac tele unit Case discussed in detail with admitting physician including history, physical exam and ancillary studies. Admitting physician has assumed care for the patient, will follow all pending diagnostics and will complete the evaluation and treatment. CRITICAL CARE DOCUMENTATION: I spent ~35 minutes of Critical Care time, excluding separately billable procedures, involving high complexity decision making to assess, manipulate and support vital system function(s) to treat single or multiple vital organ system failure and/or to prevent further life threatening deterioration of the patient' s condition. <Luis Escalona - Last Filed: 05/02/17 18:40> *DC/Admit/Observation/Transfer - Attestations Scribe Attestion: 05/02/17 13:32 Documentation prepared by Breanna Alcocer, acting as medical writer for Luis Escalona MD. <Breanna Alcocer - Last Filed: 05/02/17 13:34> - Discharge Dispostion Admit: Yes <Luis Escalona - Last Filed: 05/02/17 18:40> Diagnosis at time of Disposition: ESRD (end stage renal disease), Hypertensive emergency Altered mental status Qualifiers: Altered mental status type: unspecified Qualified Code(s): R41.82 - Altered mental status, unspecified - Discharge Dispostion Condition at time of disposition: Stable
[2017-05-02] MEDS ORDERED: SODIUM CHLORIDE 1,000 ML IV SCH (11:15)
[2017-05-02 11:46] LABS: BASO % 0.4 % (0-2.0); EOS % 10.9 % (0-4.5); HEMATOCRIT 42.1 % (32.4-45.2); HEMOGLOBIN 13.7 GM/dL (10.7-15.3); LYMPH % 15.1 % (8-40); MCH 31.4 pg (25.7-33.7); MCHC 32.4 g/dl (32.0-36.0); MEAN CELL VOLUME 96.8 fl (80-96); MEAN PLT VOLUME 8.1 fl (7.5-11.1); MONO % 9.1 % (3.8-10.2); NEUT % 64.5 % (42.8-82.8); PLATELET COUNT 232 K/MM3 (134-434); RBC 4.36 M/mm3 (3.60-5.2); RDW 17.4 % (11.6-15.6); WHITE BLOOD COUNT 5.5 K/mm3 (4.0-10.0)
[2017-05-02 11:58] LABS: INR 0.97 (0.82-1.09)
[2017-05-02] MEDS ORDERED: LABETALOL HCL 5 MG/1 ML (200MG/40ML VIAL) IVPB ONE (12:12)
[2017-05-02 12:38] LABS: ALBUMIN 4.1 g/dl (3.4-5.0); ALK PHOS 70 U/L (45-117); ANION GAP 10 (8-16); BILIRUBIN,TOTAL 0.6 mg/dL (0.2-1.0); BLOOD UREA NITROGEN 13 mg/dL (7-18); CALCIUM 8.6 mg/dL (8.5-10.1); CHLORIDE 99 mmol/L (98-107); CHOLESTEROL 140 mg/dL (50-200); CO2 25 mmol/L (21-32); CREATININE 4.5 mg/dL (0.55-1.02); GLUCOSE,RANDOM 185 mg/dL (74-106); HDL CHOLESTEROL 55 mg/dL (40-60); LDL CHOLESTEROL (ONLY SJRH) 72 mg/dL (5-100); POTASSIUM 5.2 mmol/L (3.5-5.1); SGOT/AST 26 U/L (15-37); SGPT/ALT 33 U/L (12-78); SODIUM 134 mmol/L (136-145); TOT PROT 8.5 g/dl (6.4-8.2); TRIGLYCERIDES 156 mg/dL (35-160)
--- NOTE | 2017-05-02 14:06 | HP ---
CHIEF COMPLAINT: I was confused. PCP: Dr. Mary Lutz/ICU REGISTERED NURSE Darlene HISTORY OF PRESENT ILLNESS: 66 year-old woman with a PMH significant for HTN, HLD, CVA/TIAs, NIDDM, ESRD on HD (T,,S), s/p renal transplant 2006, failed and back on HD. Multiple admissions for altered mental status thought to be secondary to hypertensive encephalopathy, most recently 03/23-03/26/17. Patient went to her regularly scheduled dialysis session today. She remembers being at dialysis, and the next thing she remembers she was in the ED. The patient's children report they were told patient was confused following completion of the session and an ambulance was called. They cannot provide any further details. The patient states she is told not to take her anti-hypertensives on the morning of dialysis. She also forgot to take her anti-hypertensives for the past three nights. Patient denies headache, dizziness, lightheadedness or visual changes; chest pain, palpitations , SOB, BOWERS, or lower extremity edema; fever, sweats, chills; nausea, vomiting, diarrhea. In the ED patient was combative and demonstrated left side-neglect. ER course was notable for: (1) BP 200/95-->216/106 (2) CT head negative for acute process Recent Travel: No PAST MEDICAL HISTORY: Hypertension Hyperlipidemia CVA/TIAs ESRD on HD NIDDM PAST SURGICAL HISTORY: Appendectomy Hysterectomy Renal transplant 2006 Social History: Smoking: no Alcohol: no Drugs: no Family History: Allergies codeine Allergy (Verified 05/02/17 10:51) promethazine HCl [From Phenergan] Allergy (Verified 05/02/17 10:51) ANAPHYLAXIS HOME MEDICATIONS: Home Medications Medication Instructions Recorded Atorvastatin Ca [Lipitor] 20 mg PO HS 11/12/15 Pantoprazole Sodium [Protonix] 20 mg PO DAILY 11/12/15 levETIRAcetam [Keppra -] 250 mg PO BID 30 Days tablet 11/16/15 Metoprolol Tartrate [Lopressor -] 50 mg PO BID #60 tablet 11/17/15 Calcium Acetate [Phoslo -] 667 mg PO TIDCM 12/01/15 Clopidogrel Bisulfate [Plavix -] 75 mg PO DAILY tablet 11/03/16 Amlodipine Besylate [Norvasc -] 10 mg PO DAILY #30 tablet 01/20/17 Aspirin 81 mg PO DAILY 03/24/17 Nifedipine ER [Procardia XL -] 60 mg PO DAILY 03/24/17 Sodium Polystyrene Sulfonate 30 grams PO 03/24/17 [Kayexalate -] Cefuroxime Axetil [Ceftin -] 250 mg PO BID #6 tablet 03/26/17 Epoetin Twan [Epogen] 4,000 unit IV WEEKLY 05/02/17 REVIEW OF SYSTEMS CONSTITUTIONAL: +confusion Absent: fever, chills, diaphoresis, generalized weakness, malaise, loss of appetite, weight change HEENT: Absent: rhinorrhea, nasal congestion, throat pain, throat swelling, difficulty swallowing, mouth swelling, ear pain, eye pain, visual changes CARDIOVASCULAR: Absent: chest pain, syncope, palpitations, irregular heart rate, lightheadedness , peripheral edema RESPIRATORY: Absent: cough, shortness of breath, dyspnea with exertion, orthopnea, wheezing, stridor, hemoptysis GASTROINTESTINAL: Absent: abdominal pain, abdominal distension, nausea, vomiting, diarrhea, constipation, melena, hematochezia GENITOURINARY: Absent: dysuria, frequency, urgency, hesitancy, hematuria, flank pain, genital pain MUSCULOSKELETAL: Absent: myalgia, arthralgia, joint swelling, back pain, neck pain SKIN: Absent: rash, itching, pallor HEMATOLOGIC/IMMUNOLOGIC: Absent: easy bleeding, easy bruising, lymphadenopathy, frequent infections ENDOCRINE: Absent: unexplained weight gain, unexplained weight loss, heat intolerance, cold intolerance NEUROLOGIC: Absent: headache, focal weakness or paresthesias, dizziness, unsteady gait, seizure, mental status changes, bladder or bowel incontinence PSYCHIATRIC: Absent: anxiety, depression, suicidal or homicidal ideation, hallucinations. PHYSICAL EXAMINATION Vital Signs - 24 hr 05/02/17 05/02/17 05/02/17 10:39 12:30 13:20 Temperature 97.9 F Pulse Rate 74 Pulse Rate [ 86 Apical] Pulse Rate [ 78 Left Radial] Respiratory 18 22 24 Rate Blood Pressure 200/95 Blood Pressure 216/106 187/109 [Right Arm] O2 Sat by Pulse 100 99 99 Oximetry (%) NEURO: Awake, alert, and fully oriented, in no acute distress. Name, [facility] , April 2016. Calm, smiling, cooperative. Mild right-sided facial droop. EYES: Pupils equal, round and reactive to light, does not move eyes to left, laterally, upward, or downward; left-sided neglect; no peripheral vision on left side; sclera anicteric, conjunctiva clear. No lid lag. EARS, NOSE, THROAT: Ears normal, nares patent, oropharynx clear without exudates. Moist mucous membranes. NECK: Normal range of motion, supple without lymphadenopathy, JVD, or masses. LUNGS: Breath sounds equal, clear to auscultation bilaterally. No wheezes, and no crackles. No accessory muscle use. HEART: Regular rate and rhythm, normal S1 and S2, +murmur ABDOMEN: Soft, nontender, not distended, normoactive bowel sounds, no guarding, no rebound, no masses. MUSCULOSKELETAL: Normal range of motion at all joints. No bony deformities or tenderness. No CVA tenderness. UPPER EXTREMITIES: 2+ pulses, warm, well-perfused. No cyanosis. No clubbing. No peripheral edema. LOWER EXTREMITIES: 2+ pulses, warm, well-perfused. No calf tenderness. No peripheral edema. Laboratory Results - last 24 hr 05/02/17 05/02/17 05/02/17 11:40 11:40 11:40 WBC 5.5 D RBC 4.36 D Hgb 13.7 D Hct 42.1 D MCV 96.8 H MCH 31.4 MCHC 32.4 RDW 17.4 H Plt Count 232 D MPV 8.1 Neutrophils % 64.5 Lymphocytes % 15.1 Monocytes % 9.1 Eosinophils % 10.9 H Basophils % 0.4 PT with INR 11.00 INR 0.97 Sodium Cancelled Potassium Cancelled Chloride Cancelled Carbon Dioxide Cancelled Anion Gap Cancelled BUN Cancelled Creatinine Cancelled Creat Clearance w eGFR Cancelled Random Glucose Cancelled Calcium Cancelled Total Bilirubin Cancelled AST Cancelled ALT Cancelled Alkaline Phosphatase Cancelled Creatine Kinase Cancelled Troponin I Cancelled Total Protein Cancelled Albumin Cancelled Triglycerides Cancelled Cholesterol Cancelled Total LDL Cholesterol Cancelled HDL Cholesterol Cancelled Blood Type Antibody Screen 05/02/17 05/02/17 11:40 11:40 WBC RBC Hgb Hct MCV MCH MCHC RDW Plt Count MPV Neutrophils % Lymphocytes % Monocytes % Eosinophils % Basophils % PT with INR INR Sodium 134 L Potassium 5.2 H Chloride 99 Carbon Dioxide 25 Anion Gap 10 BUN 13 Creatinine 4.5 H Creat Clearance w eGFR 9.84 Random Glucose 185 H Calcium 8.6 Total Bilirubin 0.6 D AST 26 ALT 33 Alkaline Phosphatase 70 Creatine Kinase 65 Troponin I < 0.02 Total Protein 8.5 H Albumin 4.1 Triglycerides 156 Cholesterol 140 Total LDL Cholesterol 72 HDL Cholesterol 55 Blood Type Cancelled Antibody Screen Cancelled ASSESSMENT/PLAN 66 year-old woman with a PMH significant for HTN, HLD, CVA/TIAs, NIDDM, and ESRD on HD (T,Th,S). Placed on observation for altered mental status. Altered mental status of uncertain etiology h/o CVA/TIAs --symptoms of confusion, combativeness resolved --left-sided neglect continues --mild right-sided facial droop but family states this is chronic --patient missed the past three evening doses and this morning's dose of anti -hypertensives; hypertensive encephalopathy has been suspected in patient's previous admissions for AMS --TIA v. CVA: CT head is negative; discussed MRI brain with family; patient becomes very agitated in closed MRI and mild sedation has not worked in the past to relieve her of her anxiety; needs open MRI --neuro consult: patient has appt next week to see Dr. Shaikh, will ask him to consult Hypertension --continue amlodipine, metoprolol BID, and nifedipine Hyperlipidemia --continue Lipitor NIDDM --Hgb A1C 9.7 on 03/22/2017 --Novolog sliding scale coverage ESRD on HD --HD today --renal consult
[2017-05-02] MEDS ORDERED: CLOPIDOGREL BISULFATE 75 MG TABLET (FP) PO SCH (15:30)
[2017-05-02] MEDS ORDERED: ASPIRIN 81 MG CHEWABLE TABLETS PO SCH (15:30)
--- NOTE | 2017-05-02 16:31 | EKG ---
Test Reason : Blood Pressure : / mmHG Vent. Rate : 082 BPM Atrial Rate : 082 BPM P-R Int : 164 ms QRS Dur : 090 ms QT Int : 398 ms P-R-T Axes : 032 054 086 degrees QTc Int : 464 ms Significant artifact; cannot accurately asses rhythm but likely sinus Nonspecific T wave abnormalities ABNORMAL ECG Confirmed by MD Abdulaziz, Hemant ([id number]) on 05/02/2017 4:30:49 PM Referred By: Confirmed By:eHmant Cintron MD
[2017-05-02] MEDS ORDERED: ASPIRIN 81 MG CHEWABLE TABLETS ONE (16:52)
[2017-05-02] MEDS ORDERED: CLOPIDOGREL BISULFATE 75 MG TABLET (FP) ONE (16:52)
[2017-05-02] MEDS ORDERED: amLODIPine BESYLATE 5 MG TABLET (FP) ONE (16:52)
[2017-05-02] MEDS ORDERED: HEPARIN NA (PORCINE) 5,000 UNITS/ML 1ML VIAL ONE (16:52)
[2017-05-02] MEDS: HEPARIN NA (PORCINE) 5,000 UNITS/ML 1ML VIAL SQ SCH ×2 (17:19→21:47)
[2017-05-02] MEDS: amLODIPine BESYLATE 10 MG TABLET (FP) PO SCH (17:19)
[2017-05-02] MEDS: NIFEdipine E.R 60 MG TABLET (UD) PO SCH (17:20)
[2017-05-02] MEDS: CALCIUM ACETATE 667 MG CAPSULE (FP) PO SCH (20:21)
[2017-05-02] MEDS ORDERED: ATORVASTATIN CA 40 MG TABLET (FP) PO SCH (22:00)
[2017-05-02] MEDS: levETIRAcetam 250 MG TABLET (FP) PO SCH (22:13)
[2017-05-02] MEDS: METOPROLOL TARTRATE 25 MG TABLET (FP) PO SCH (22:13)
[2017-05-02] MEDS: INSULIN SLIDING SCALE (NOVOLOG) 1 VIAL SQ SCH (22:13)
[2017-05-02] MEDS ORDERED: PT OWN MED DRAWER 7, Y5N ONE (22:17)
--- NOTE | 2017-05-02 22:43 | HP ---
CHIEF COMPLAINT: I was confused. PCP: Dr. Mary Lutz HISTORY OF PRESENT ILLNESS: 66 year-old woman with a PMH significant for HTN, HLD, CVA/TIAs, NIDDM, ESRD on HD (T,Th,S). Multiple admissions for altered mental status, most recently 03/23-03/26/17 thought to be secondary to TIAs v. hypertensive encephalopathy. Patient's family reports home health aide told them patient has missed last three evening doses of anti-hypertensive medications. Patient also did not take her medication this morning. Patient went to HD today as scheduled. According to the nurse at the dialysis center, after patient's session was completed, she was observed walking around confused. EMS was called. In the ED patient was agitated and combative with the staff. Patient denies headache, visual changes, lightheadedness, or dizziness; denies chest pain, palpitations, CJ, BOWERS, or lower extremity edema; denies fever, sweats, chills; denies nausea, vomiting, diarrhea. ER course was notable for: (1) BP 216/106 (2) CT negative for acute process Recent Travel: No PAST MEDICAL HISTORY: Hypertension Hyperlipidemia CVA/TIAs NIDDM ESRD on HD PAST SURGICAL HISTORY: Social History: Smoking: Alcohol: Drugs: Family History: Allergies codeine Allergy (Verified 05/02/17 10:51) promethazine HCl [From Phenergan] Allergy (Verified 05/02/17 10:51) ANAPHYLAXIS HOME MEDICATIONS: Home Medications Medication Instructions Recorded Atorvastatin Ca [Lipitor] 20 mg PO HS 11/12/15 levETIRAcetam [Keppra -] 250 mg PO BID 30 Days tablet 11/16/15 Metoprolol Tartrate [Lopressor -] 50 mg PO BID #60 tablet 11/17/15 Calcium Acetate [Phoslo -] 667 mg PO TIDCM 12/01/15 Clopidogrel Bisulfate [Plavix -] 75 mg PO DAILY tablet 11/03/16 Aspirin 81 mg PO DAILY 03/24/17 Nifedipine ER [Procardia XL -] 60 mg PO DAILY 03/24/17 Epoetin Twan [Epogen] 4,000 unit IV WEEKLY 05/02/17 REVIEW OF SYSTEMS CONSTITUTIONAL: Absent: fever, chills, diaphoresis, generalized weakness, malaise, loss of appetite, weight change HEENT: Absent: rhinorrhea, nasal congestion, throat pain, throat swelling, difficulty swallowing, mouth swelling, ear pain, eye pain, visual changes CARDIOVASCULAR: Absent: chest pain, syncope, palpitations, irregular heart rate, lightheadedness , peripheral edema RESPIRATORY: Absent: cough, shortness of breath, dyspnea with exertion, orthopnea, wheezing, stridor, hemoptysis GASTROINTESTINAL: Absent: abdominal pain, abdominal distension, nausea, vomiting, diarrhea, constipation, melena, hematochezia GENITOURINARY: Absent: dysuria, frequency, urgency, hesitancy, hematuria, flank pain, genital pain MUSCULOSKELETAL: Absent: myalgia, arthralgia, joint swelling, back pain, neck pain SKIN: Absent: rash, itching, pallor HEMATOLOGIC/IMMUNOLOGIC: Absent: easy bleeding, easy bruising, lymphadenopathy, frequent infections ENDOCRINE: Absent: unexplained weight gain, unexplained weight loss, heat intolerance, cold intolerance NEUROLOGIC: Absent: headache, focal weakness or paresthesias, dizziness, unsteady gait, seizure, mental status changes, bladder or bowel incontinence PSYCHIATRIC: Absent: anxiety, depression, suicidal or homicidal ideation, hallucinations. PHYSICAL EXAMINATION Vital Signs - 24 hr 05/02/17 05/02/17 05/02/17 10:39 12:30 13:20 Temperature 97.9 F Pulse Rate 74 Pulse Rate [ 86 Apical] Pulse Rate [ 78 Left Radial] Respiratory 18 22 24 Rate Blood Pressure 200/95 Blood Pressure 216/106 187/109 [Right Arm] O2 Sat by Pulse 100 99 99 Oximetry (%) 05/02/17 05/02/17 05/02/17 14:34 15:40 17:20 Temperature Pulse Rate Pulse Rate [ 72 78 82 Apical] Pulse Rate [ Left Radial] Respiratory 22 22 26 H Rate Blood Pressure Blood Pressure 192/100 174/90 166/78 [Right Arm] O2 Sat by Pulse 98 99 100 Oximetry (%) GENERAL: Awake, alert, and fully oriented, in no acute distress. HEAD: Normal with no signs of trauma. EYES: Pupils equal, round and reactive to light, extraocular movements intact, sclera anicteric, conjunctiva clear. No lid lag. EARS, NOSE, THROAT: Ears normal, nares patent, oropharynx clear without exudates. Moist mucous membranes. NECK: Normal range of motion, supple without lymphadenopathy, JVD, or masses. LUNGS: Breath sounds equal, clear to auscultation bilaterally. No wheezes, and no crackles. No accessory muscle use. HEART: Regular rate and rhythm, normal S1 and S2 without murmur, rub or gallop. ABDOMEN: Soft, nontender, not distended, normoactive bowel sounds, no guarding, no rebound, no masses. No hepatomegaly or splenomegaly. MUSCULOSKELETAL: Normal range of motion at all joints. No bony deformities or tenderness. No CVA tenderness. UPPER EXTREMITIES: 2+ pulses, warm, well-perfused. No cyanosis. No clubbing. No peripheral edema. LOWER EXTREMITIES: 2+ pulses, warm, well-perfused. No calf tenderness. No peripheral edema. NEUROLOGICAL: Cranial nerves II-XII intact. Normal speech. Normal gait. PSYCHIATRIC: Cooperative. Good eye contact. Appropriate mood and affect. SKIN: Warm, dry, normal turgor, no rashes or lesions noted, normal capillary refill. Laboratory Results - last 24 hr 05/02/17 05/02/17 05/02/17 11:40 11:40 11:40 WBC 5.5 D RBC 4.36 D Hgb 13.7 D Hct 42.1 D MCV 96.8 H MCH 31.4 MCHC 32.4 RDW 17.4 H Plt Count 232 D MPV 8.1 Neutrophils % 64.5 Lymphocytes % 15.1 Monocytes % 9.1 Eosinophils % 10.9 H Basophils % 0.4 PT with INR 11.00 INR 0.97 Sodium Cancelled Potassium Cancelled Chloride Cancelled Carbon Dioxide Cancelled Anion Gap Cancelled BUN Cancelled Creatinine Cancelled Creat Clearance w eGFR Cancelled Random Glucose Cancelled Calcium Cancelled Total Bilirubin Cancelled AST Cancelled ALT Cancelled Alkaline Phosphatase Cancelled Creatine Kinase Cancelled Troponin I Cancelled Total Protein Cancelled Albumin Cancelled Triglycerides Cancelled Cholesterol Cancelled Total LDL Cholesterol Cancelled HDL Cholesterol Cancelled Blood Type Antibody Screen 05/02/17 05/02/17 05/02/17 11:40 11:40 14:30 WBC RBC Hgb Hct MCV MCH MCHC RDW Plt Count MPV Neutrophils % Lymphocytes % Monocytes % Eosinophils % Basophils % PT with INR INR Sodium 134 L Cancelled Potassium 5.2 H Cancelled Chloride 99 Cancelled Carbon Dioxide 25 Cancelled Anion Gap 10 Cancelled BUN 13 Cancelled Creatinine 4.5 H Cancelled Creat Clearance w eGFR 9.84 Cancelled Random Glucose 185 H Cancelled Calcium 8.6 Cancelled Total Bilirubin 0.6 D Cancelled AST 26 Cancelled ALT 33 Cancelled Alkaline Phosphatase 70 Cancelled Creatine Kinase 65 Cancelled Troponin I < 0.02 Cancelled Total Protein 8.5 H Cancelled Albumin 4.1 Cancelled Triglycerides 156 Cholesterol 140 Total LDL Cholesterol 72 HDL Cholesterol 55 Blood Type Cancelled Antibody Screen Cancelled 05/02/17 21:39 WBC RBC Hgb Hct MCV MCH MCHC RDW Plt Count MPV Neutrophils % Lymphocytes % Monocytes % Eosinophils % Basophils % PT with INR INR Sodium Potassium Chloride Carbon Dioxide Anion Gap BUN Creatinine Creat Clearance w eGFR Random Glucose Calcium Total Bilirubin AST ALT Alkaline Phosphatase Creatine Kinase Troponin I < 0.02 Total Protein Albumin Triglycerides Cholesterol Total LDL Cholesterol HDL Cholesterol Blood Type Antibody Screen ASSESSMENT/PLAN: 66 year-old woman with a PMH significant for HTN, HLD, CVA/TIAs, NIDDM, ESRD on HD (T,,S). Multiple admissions for altered mental status. Altered mental status of uncertain etiology --TIA v. hypertensive encephalopathy v. multi-infarct dementia --seen and evaluated in March by Dr. Shaikh; MRI not an option; on maximum medical therapy for stroke prevention; recent US carotids unremarkable Hypertensive emergency --BP 216/106 with altered mental status on admission --AMS has resolved, back to baseline --continue amlodipine, metoprolol, nifedipine Hyperlipidemia --continue Lipitor h/o CVA/TIAs --continue ASA, Plavix NIDDM --Hgb A1C 9.7 on 03/23/2017 --Novolog sliding scale coverage ESRD on HD --HD today --renal consult FEN Fluids: PO intake adequate Electrolytes: replete as indicated Nutrition: diabetic low sodium Physical therapy evaluation DVT prophylaxis: subq heparin Dispo: continues to require observation. Full code.
--- NOTE | 2017-05-02 23:33 | HP ---
CHIEF COMPLAINT: I was confused PCP: Dr. Mary Lutz HISTORY OF PRESENT ILLNESS: 66 year-old female with a PMH significant for HTN, HLD, CVA/TIAs, NIDDM, and ESRD on HD (T,Th,S). With multiple admissions for altered mental status, most recently 03/23 - 03/26/2017. Per history provided by patient's children, patient missed the last three evening doses of her anti-hypertensive medications and missed this morning's dose as well. She went to dialysis today as scheduled. At the conclusion of the session she appeared confused to the staff who activated EMS. When patient got to the ED she was severely hypertensive and combative. Her symptoms abated as her BP improved and she returned to baseline functioning. ER course was notable for: (1) BP 216/106 (2) CT head negative for acute process Recent Travel: No PAST MEDICAL HISTORY: Hypertension Hyperlipidemia CVA/TIAs NIDDM ESRD on HD PAST SURGICAL HISTORY: Appendectomy Hysterectomy Kidney Transplant (2006 [facility]) Social History: Smoking: no Alcohol: no Drugs: no Family History: Allergies codeine Allergy (Verified 05/02/17 10:51) promethazine HCl [From Phenergan] Allergy (Verified 05/02/17 10:51) ANAPHYLAXIS HOME MEDICATIONS: Home Medications Medication Instructions Recorded Atorvastatin Ca [Lipitor] 20 mg PO HS 11/12/15 levETIRAcetam [Keppra -] 250 mg PO BID 30 Days tablet 11/16/15 Metoprolol Tartrate [Lopressor -] 50 mg PO BID #60 tablet 11/17/15 Calcium Acetate [Phoslo -] 667 mg PO TIDCM 12/01/15 Clopidogrel Bisulfate [Plavix -] 75 mg PO DAILY tablet 11/03/16 Aspirin 81 mg PO DAILY 03/24/17 Nifedipine ER [Procardia XL -] 60 mg PO DAILY 03/24/17 Epoetin Twan [Epogen] 4,000 unit IV WEEKLY 05/02/17 REVIEW OF SYSTEMS CONSTITUTIONAL: +confusion Absent: fever, chills, diaphoresis, generalized weakness, malaise, loss of appetite, weight change HEENT: Absent: rhinorrhea, nasal congestion, throat pain, throat swelling, difficulty swallowing, mouth swelling, ear pain, eye pain, visual changes CARDIOVASCULAR: Absent: chest pain, syncope, palpitations, irregular heart rate, lightheadedness , peripheral edema RESPIRATORY: Absent: cough, shortness of breath, dyspnea with exertion, orthopnea, wheezing, stridor, hemoptysis GASTROINTESTINAL: Absent: abdominal pain, abdominal distension, nausea, vomiting, diarrhea, constipation, melena, hematochezia GENITOURINARY: Absent: dysuria, frequency, urgency, hesitancy, hematuria, flank pain, genital pain MUSCULOSKELETAL: Absent: myalgia, arthralgia, joint swelling, back pain, neck pain SKIN: Absent: rash, itching, pallor HEMATOLOGIC/IMMUNOLOGIC: Absent: easy bleeding, easy bruising, lymphadenopathy, frequent infections ENDOCRINE: Absent: unexplained weight gain, unexplained weight loss, heat intolerance, cold intolerance NEUROLOGIC: Absent: headache, focal weakness or paresthesias, dizziness, unsteady gait, seizure, mental status changes, bladder or bowel incontinence PSYCHIATRIC: Absent: anxiety, depression, suicidal or homicidal ideation, hallucinations. PHYSICAL EXAMINATION Vital Signs - 24 hr 05/02/17 05/02/17 05/02/17 10:39 12:30 13:20 Temperature 97.9 F Pulse Rate 74 Pulse Rate [ 86 Apical] Pulse Rate [ 78 Left Radial] Respiratory 18 22 24 Rate Blood Pressure 200/95 Blood Pressure 216/106 187/109 [Right Arm] O2 Sat by Pulse 100 99 99 Oximetry (%) 05/02/17 05/02/17 05/02/17 14:34 15:40 17:20 Temperature Pulse Rate Pulse Rate [ 72 78 82 Apical] Pulse Rate [ Left Radial] Respiratory 22 22 26 H Rate Blood Pressure Blood Pressure 192/100 174/90 166/78 [Right Arm] O2 Sat by Pulse 98 99 100 Oximetry (%) GENERAL/NEURO: Awake, alert, and fully oriented, in no acute distress. Knows name, [facility], April 2016 HEAD: mild right-sided facial droop EYES: Pupils equal, round and reactive to light; no left lateral eye movement; negative left-sided fishbowl; demonstrates left sided neglect EARS, NOSE, THROAT: Ears normal, nares patent, oropharynx clear without exudates. Moist mucous membranes. NECK: Normal range of motion, supple without lymphadenopathy, JVD, or masses. LUNGS: Breath sounds equal, clear to auscultation bilaterally. No wheezes, and no crackles. No accessory muscle use. HEART: Regular rate and rhythm, normal S1 and S2 ABDOMEN: Soft, nontender, not distended, normoactive bowel sounds, no guarding, no rebound, no masses. UPPER EXTREMITIES: 2+ pulses, warm, well-perfused. No cyanosis. No clubbing. No peripheral edema. LOWER EXTREMITIES: 2+ pulses, warm, well-perfused. No calf tenderness. No peripheral edema. Laboratory Results - last 24 hr 05/02/17 05/02/17 05/02/17 11:40 11:40 11:40 WBC 5.5 D RBC 4.36 D Hgb 13.7 D Hct 42.1 D MCV 96.8 H MCH 31.4 MCHC 32.4 RDW 17.4 H Plt Count 232 D MPV 8.1 Neutrophils % 64.5 Lymphocytes % 15.1 Monocytes % 9.1 Eosinophils % 10.9 H Basophils % 0.4 PT with INR 11.00 INR 0.97 Sodium Cancelled Potassium Cancelled Chloride Cancelled Carbon Dioxide Cancelled Anion Gap Cancelled BUN Cancelled Creatinine Cancelled Creat Clearance w eGFR Cancelled POC Glucometer Random Glucose Cancelled Calcium Cancelled Total Bilirubin Cancelled AST Cancelled ALT Cancelled Alkaline Phosphatase Cancelled Creatine Kinase Cancelled Troponin I Cancelled Total Protein Cancelled Albumin Cancelled Triglycerides Cancelled Cholesterol Cancelled Total LDL Cholesterol Cancelled HDL Cholesterol Cancelled Blood Type Antibody Screen 05/02/17 05/02/17 05/02/17 11:40 11:40 14:30 WBC RBC Hgb Hct MCV MCH MCHC RDW Plt Count MPV Neutrophils % Lymphocytes % Monocytes % Eosinophils % Basophils % PT with INR INR Sodium 134 L Cancelled Potassium 5.2 H Cancelled Chloride 99 Cancelled Carbon Dioxide 25 Cancelled Anion Gap 10 Cancelled BUN 13 Cancelled Creatinine 4.5 H Cancelled Creat Clearance w eGFR 9.84 Cancelled POC Glucometer Random Glucose 185 H Cancelled Calcium 8.6 Cancelled Total Bilirubin 0.6 D Cancelled AST 26 Cancelled ALT 33 Cancelled Alkaline Phosphatase 70 Cancelled Creatine Kinase 65 Cancelled Troponin I < 0.02 Cancelled Total Protein 8.5 H Cancelled Albumin 4.1 Cancelled Triglycerides 156 Cholesterol 140 Total LDL Cholesterol 72 HDL Cholesterol 55 Blood Type Cancelled Antibody Screen Cancelled 05/02/17 05/02/17 21:39 22:02 WBC RBC Hgb Hct MCV MCH MCHC RDW Plt Count MPV Neutrophils % Lymphocytes % Monocytes % Eosinophils % Basophils % PT with INR INR Sodium Potassium Chloride Carbon Dioxide Anion Gap BUN Creatinine Creat Clearance w eGFR POC Glucometer 164 Random Glucose Calcium Total Bilirubin AST ALT Alkaline Phosphatase Creatine Kinase Troponin I < 0.02 Total Protein Albumin Triglycerides Cholesterol Total LDL Cholesterol HDL Cholesterol Blood Type Antibody Screen ASSESSMENT/PLAN 66 year-old female with a PMH significant for HTN, HLD, CVA/TIAs, NIDDM, and ESRD on HD (T,Th,S). With multiple admissions for altered mental status, most recently 03/23 - 03/26/2017. Placed on observation for AMS now resolved. Altered mental status, multifactorial --hypertensive encephalopathy: patient missed three days of anti- hypertensive medications; mental status improved in ED with lowering of BP; multiple past admissions demonstrated same pattern --TIA v. CVA: CT head negative for acute process; apparently MRI is not an option for this patient due to extreme anxiety --multi-infarct dementia: seen and evaluated by Dr. Shaikh on last admission ; consider starting Aricept and Namenda Hypertensive emergency --BP 216/106 on admission with AMS --continue amlodipine, metoprolol, nifedipine Hyperlipidemia --continue Lipitor h/o CVA/TIAs --continue ASA, Plavix, Keppra NIDDM --HgbA1C 9.7 on 03/23/2017 --Novolog sliding scale coverage ESRD on HD --HD today --renal consult FEN Fluids: PO intake adequate Electrolytes: replete as indicated Nutrition: low sodium, diabetic DVT prophylaxis: subq heparin Physical therapy evaluation Dispo: continues to require observation. Visit type - Emergency Visit Emergency Visit: Yes ED Registration Date: 05/02/17 Care time: The patient presented to the Emergency Department on the above date and was hospitalized for further evaluation of their emergent condition. - New Patient This patient is new to me today: Yes Date on this admission: 05/02/17 - Critical Care Critical Care patient: No
[2017-05-03] MEDS: INSULIN SLIDING SCALE (NOVOLOG) 1 VIAL SQ SCH ×3 (06:13→17:05)
[2017-05-03] MEDS: HEPARIN NA (PORCINE) 5,000 UNITS/ML 1ML VIAL SQ SCH ×2 (06:14→14:24)
[2017-05-03 07:13] LABS: BASO % 2.7 % (0-2.0); EOS % 5.5 % (0-4.5); HEMOGLOBIN 14.1 GM/dL (10.7-15.3); LYMPH % 22.5 % (8-40); MCH 31.5 pg (25.7-33.7); MCHC 32.2 g/dl (32.0-36.0); MEAN PLT VOLUME 8.3 fl (7.5-11.1); NEUT % 60.3 % (42.8-82.8); PLATELET COUNT 223 K/MM3 (134-434); RBC 4.49 M/mm3 (3.60-5.2); RDW 17.8 % (11.6-15.6); WHITE BLOOD COUNT 6.1 K/mm3 (4.0-10.0)
[2017-05-03 07:45] LABS: CHLORIDE 96 mmol/L (98-107); POTASSIUM 4.9 mmol/L (3.5-5.1); SODIUM 136 mmol/L (136-145)
[2017-05-03] MEDS: CALCIUM ACETATE 667 MG CAPSULE (FP) PO SCH ×3 (07:55→17:53)
[2017-05-03 08:00] LABS: ALBUMIN 3.7 g/dl (3.4-5.0); ALK PHOS 72 U/L (45-117); ANION GAP 16 (8-16); BILIRUBIN,TOTAL 0.7 mg/dL (0.2-1.0); BLOOD UREA NITROGEN 22 mg/dL (7-18); CALCIUM 9.1 mg/dL (8.5-10.1); CO2 24 mmol/L (21-32); CREATININE 6.5 mg/dL (0.55-1.02); GLUCOSE,RANDOM 162 mg/dL (74-106); MAGNESIUM 2.2 mg/dL (1.8-2.4); PHOSPHOROUS 6.3 mg/dL (2.5-4.9); SGOT/AST 25 U/L (15-37); SGPT/ALT 34 U/L (12-78); TOT PROT 8.7 g/dl (6.4-8.2)
--- NOTE | 2017-05-03 11:02 | EKG ---
Test Reason : Blood Pressure : / mmHG Vent. Rate : 068 BPM Atrial Rate : 068 BPM P-R Int : 188 ms QRS Dur : 098 ms QT Int : 478 ms P-R-T Axes : 016 014 070 degrees QTc Int : 508 ms NORMAL SINUS RHYTHM PROLONGED QT ABNORMAL ECG WHEN COMPARED WITH ECG OF 02-MAY-2017 15:06, PREVIOUS ECG HAS UNDETERMINED RHYTHM, NEEDS REVIEW Confirmed by MARYANN DICK, JOSE ([id number]) on 05/03/2017 11:02:20 AM Referred By: Elenita COLIN Confirmed By:JOSE WOLF MD
[2017-05-03] MEDS: levETIRAcetam 250 MG TABLET (FP) PO SCH (11:25)
[2017-05-03] MEDS: amLODIPine BESYLATE 10 MG TABLET (FP) PO SCH (11:26)
[2017-05-03] MEDS: METOPROLOL TARTRATE 25 MG TABLET (FP) PO SCH (11:26)
[2017-05-03] MEDS: NIFEdipine E.R 60 MG TABLET (UD) PO SCH (11:26)
--- NOTE | 2017-05-03 12:18 | CONSULT ---
Consult - text type - Consultation Consultation Note: Renal Consult for ESRD on HD/Uncontrolled hypertension This is a 66 year old woman with PMhx of ESRD on HD, Hypertension, CVA/TIA, Hx of Renal Transplant now back on dialysis presented s/p dialysis with AMS and hypertensive urgency. Pt is now awake and alert at her baseline MS. BP is better controlled. Pt cannot recall the events from yesterday. Currently denies any DAVILA, CP, SOB, fever, chills, N/V. S/p complete dialysis yesterday. PMhx: as above Allergies: NKDA Family Hx: NC Social Hx: No T/A/D ROS: As per HPI, all other pertinent ros negative Home Meds Medication Instructions Recorded Atorvastatin Ca [Lipitor] 20 mg PO HS 11/12/15 levETIRAcetam [Keppra -] 250 mg PO BID 30 Days tablet 11/16/15 Metoprolol Tartrate [Lopressor -] 50 mg PO BID #60 tablet 11/17/15 Calcium Acetate [Phoslo -] 667 mg PO TIDCM 12/01/15 Clopidogrel Bisulfate [Plavix -] 75 mg PO DAILY tablet 11/03/16 Aspirin 81 mg PO DAILY 03/24/17 Nifedipine ER [Procardia XL -] 60 mg PO DAILY 03/24/17 Epoetin Twna [Epogen] 4,000 unit IV WEEKLY 05/02/17 Vital Signs Temperature 97.3 F L 05/03/17 06:00 Pulse Rate 65 05/03/17 06:00 Respiratory Rate 20 05/03/17 06:00 Blood Pressure 176/84 05/03/17 06:00 O2 Sat by Pulse Oximetry (%) 100 05/02/17 21:00 NAD, awake and alert Neck supple, no JVD, MMM RRR, No M/R CTA, no rales or wheeze soft NT/ND, no rebound or gurading No LE edmea, clubbing or cyanosis left ARM AVF CN 2-12 grossly intact, no focal defects CBC, BMP 05/03/17 05:30 05/03/17 05:30 Current Medications Amlodipine Besylate (Norvasc -) 10 mg PO DAILY [facility] Last Admin: 05/03/17 11:26 Dose: 10 mg Aspirin (Asa -) 81 mg PO DAILY [facility] Last Admin: 05/02/17 17:19 Dose: 81 mg Atorvastatin Calcium (Lipitor -) 20 mg PO HS [facility] Last Admin: 05/02/17 22:13 Dose: 20 mg Calcium Acetate (Phoslo -) 667 mg PO TIDCM [facility] Last Admin: 05/03/17 11:26 Dose: 667 mg Clopidogrel Bisulfate (Plavix -) 75 mg PO DAILY [facility] Last Admin: 05/02/17 17:19 Dose: 75 mg Heparin Sodium (Porcine) (Heparin -) 5,000 unit SQ TID [facility] Last Admin: 05/03/17 06:14 Dose: 5,000 unit Insulin Aspart (Novolog Vial Sliding Scale -) 1 vial SQ ACHS [facility] PRN Reason: Protocol Last Admin: 05/03/17 11:58 Dose: 2 units Levetiracetam (Keppra -) 250 mg PO BID [facility] Last Admin: 05/03/17 11:25 Dose: 250 mg Metoprolol Tartrate (Lopressor -) 50 mg PO BID [facility] Last Admin: 05/03/17 11:26 Dose: 50 mg Nifedipine (Procardia Xl -) 60 mg PO DAILY [facility] Last Admin: 05/03/17 11:26 Dose: 60 mg 66 year old woman with PMhx of ESRD on HD, Hypertension, CVA/TIA, Hx of Renal Transplant now back on dialysis presented s/p dialysis with AMS and hypertensive urgency. #AMS/Hypertensive Urgency Mental status is now at baseline BP is also well controlled given pt required minimal doses of medication to get BP under control likely pt is non-compliant with meds at home goal BP < 140/90 AM BP is high, will trend into the afternoon #ESRD on HD s/p dialysis yesterday, no acute indication for dialysis today next treatment planned for tomorrow renal diet, 1.2L fluid restriction dose all meds for intermittent HD #Renal Osteodystrophy check Phos levels start phoslo 667 TID with meals Low phos diet Thank you Will follow Nicolas Campoverde DO
[2017-05-03 15:11] VITALS: BP 112/57; PULSE 74; TEMP 98.2
--- NOTE | 2017-05-03 16:02 | PN ---
Physical Exam: SUBJECTIVE: Patient seen and examined oob to chair. No further episodes of confusion. Still does not recall what occured in the dialysis center. Does not remember ambulance trip to ED. OBJECTIVE: Vital Signs Period Temp Pulse Resp BP Sys/Travis Pulse Ox Last 24 Hr 97.3 F-98.6 F 65-82 16-26 112-176/57-90 99-100 GENERAL/NEURO: Awake, alert, and fully oriented, in no acute distress. HEAD: mild right-sided facial droop EYES: Pupils equal, round and reactive to light; +left lateral eye movement today, improved from yesterday; restricted left-sided visual field EARS, NOSE, THROAT: Ears normal, nares patent, oropharynx clear without exudates. Moist mucous membranes. NECK: Normal range of motion, supple without lymphadenopathy, JVD, or masses. LUNGS: Breath sounds equal, clear to auscultation bilaterally. No wheezes, and no crackles. No accessory muscle use. HEART: Regular rate and rhythm, normal S1 and S2 ABDOMEN: Soft, nontender, not distended, normoactive bowel sounds, no guarding, no rebound, no masses. UPPER EXTREMITIES: 2+ pulses, warm, well-perfused. No cyanosis. No clubbing. No peripheral edema. LOWER EXTREMITIES: 2+ pulses, warm, well-perfused. No calf tenderness. No peripheral edema. Laboratory Results - last 24 hr 05/02/17 05/02/17 05/02/17 14:30 21:39 22:02 WBC RBC Hgb Hct MCV MCH MCHC RDW Plt Count MPV Neutrophils % Lymphocytes % Monocytes % Eosinophils % Basophils % Sodium Cancelled Potassium Cancelled Chloride Cancelled Carbon Dioxide Cancelled Anion Gap Cancelled BUN Cancelled Creatinine Cancelled Creat Clearance w eGFR Cancelled POC Glucometer 164 Random Glucose Cancelled Calcium Cancelled Phosphorus Magnesium Total Bilirubin Cancelled AST Cancelled ALT Cancelled Alkaline Phosphatase Cancelled Creatine Kinase Cancelled Troponin I Cancelled < 0.02 Total Protein Cancelled Albumin Cancelled 05/03/17 05/03/17 05/03/17 05:12 05:30 05:30 WBC 6.1 RBC 4.49 Hgb 14.1 Hct 44.0 MCV 98.0 H MCH 31.5 MCHC 32.2 RDW 17.8 H Plt Count 223 MPV 8.3 Neutrophils % 60.3 Lymphocytes % 22.5 D Monocytes % 9.0 Eosinophils % 5.5 H Basophils % 2.7 H D Sodium 136 Potassium 4.9 Chloride 96 L Carbon Dioxide 24 Anion Gap 16 BUN 22 H Creatinine 6.5 H Creat Clearance w eGFR 6.44 POC Glucometer 141 Random Glucose 162 H Calcium 9.1 Phosphorus 6.3 H Magnesium 2.2 Total Bilirubin 0.7 AST 25 ALT 34 Alkaline Phosphatase 72 Creatine Kinase Troponin I Total Protein 8.7 H Albumin 3.7 05/03/17 05/03/17 09:20 11:56 WBC RBC Hgb Hct MCV MCH MCHC RDW Plt Count MPV Neutrophils % Lymphocytes % Monocytes % Eosinophils % Basophils % Sodium Potassium Chloride Carbon Dioxide Anion Gap BUN Creatinine Creat Clearance w eGFR POC Glucometer 164 Random Glucose Calcium Phosphorus Magnesium Total Bilirubin AST ALT Alkaline Phosphatase Creatine Kinase Troponin I < 0.02 Total Protein Albumin Active Medications Generic Name Dose Route Start Last Admin Trade Name Freq PRN Reason Stop Dose Admin Amlodipine Besylate 10 mg 05/02/17 15:30 05/03/17 11:26 Norvasc - PO 10 mg DAILY NAJMA Administration Aspirin 81 mg 05/02/17 15:30 05/02/17 17:19 Asa - PO 81 mg DAILY NAJMA Administration Atorvastatin Calcium 20 mg 05/02/17 22:00 05/02/17 22:13 Lipitor - PO 20 mg HS NAJMA Administration Calcium Acetate 667 mg 05/02/17 17:30 05/03/17 11:26 Phoslo - PO 667 mg TIDCM NAJMA Administration Clopidogrel Bisulfate 75 mg 05/02/17 15:30 05/02/17 17:19 Plavix - PO 75 mg DAILY NAJMA Administration Heparin Sodium (Porcine) 5,000 unit 05/02/17 15:30 05/03/17 14:24 Heparin - SQ 5,000 unit TID NAJMA Administration Insulin Aspart 1 vial 05/02/17 22:00 05/03/17 11:58 Novolog Vial Sliding Scale - SQ 2 units ACHS NAJMA Administration Protocol Levetiracetam 250 mg 05/02/17 22:00 05/03/17 11:25 Keppra - PO 250 mg BID NAJMA Administration Metoprolol Tartrate 50 mg 05/02/17 22:00 05/03/17 11:26 Lopressor - PO 50 mg BID NAJAM Administration Nifedipine 60 mg 05/02/17 15:30 05/03/17 11:26 Procardia Xl - PO 60 mg DAILY NAJMA Administration ASSESSMENT/PLAN 66 year-old female with a PMH significant for HTN, HLD, CVA/TIAs, NIDDM, and ESRD on HD (T,Th,S). With multiple admissions for altered mental status, most recently 03/23 - 03/26/2017. Placed on observation for AMS, now resolved. Altered mental status, multifactorial --hypertensive encephalopathy: patient missed three days of anti- hypertensive medications; mental status improved in ED with lowering of BP; multiple past admissions demonstrated same pattern --TIA v. CVA: CT head negative for acute process; apparently MRI is not an option for this patient due to extreme anxiety --multi-infarct dementia: seen and evaluated by Dr. Shaikh on last admission ; consider starting Aricept and Namenda Hypertensive emergency --BP 216/106 on admission with AMS --BP under good control with restarting of home meds --continue amlodipine, metoprolol, nifedipine Hyperlipidemia --continue Lipitor h/o CVA/TIAs --continue ASA, Plavix, Keppra NIDDM --HgbA1C 9.7 on 03/23/2017 --Novolog sliding scale coverage ESRD on HD --next HD treatment tomorrow --fluid restrict 1.2L --renal following FEN Fluids: PO intake adequate Electrolytes: replete as indicated Nutrition: low sodium, diabetic DVT prophylaxis: subq heparin Physical therapy evaluation Dispo: continues to require observation. Visit type - Emergency Visit Emergency Visit: Yes ED Registration Date: 05/02/17 Care time: The patient presented to the Emergency Department on the above date and was hospitalized for further evaluation of their emergent condition. - New Patient This patient is new to me today: No - Critical Care Critical Care patient: No
--- NOTE | 2017-05-03 16:05 | DS ---
Physical Exam: SUBJECTIVE: Patient seen and examined oob to chair. OBJECTIVE: Vital Signs Period Temp Pulse Resp BP Sys/Travis Pulse Ox Last 24 Hr 97.3 F-98.6 F 65-82 16-26 112-176/57-84 100-100 PHYSICAL EXAM GENERAL/NEURO: Awake, alert, and fully oriented, in no acute distress. HEAD: mild right-sided facial droop EYES: Pupils equal, round and reactive to light; +left lateral eye movement today, improved from yesterday; restricted left-sided visual field EARS, NOSE, THROAT: Ears normal, nares patent, oropharynx clear without exudates. Moist mucous membranes. NECK: Normal range of motion, supple without lymphadenopathy, JVD, or masses. LUNGS: Breath sounds equal, clear to auscultation bilaterally. No wheezes, and no crackles. No accessory muscle use. HEART: Regular rate and rhythm, normal S1 and S2 ABDOMEN: Soft, nontender, not distended, normoactive bowel sounds, no guarding, no rebound, no masses. UPPER EXTREMITIES: 2+ pulses, warm, well-perfused. No cyanosis. No clubbing. No peripheral edema. LOWER EXTREMITIES: 2+ pulses, warm, well-perfused. No calf tenderness. No peripheral edema. LABS Laboratory Results - last 24 hr 05/02/17 05/02/17 05/02/17 14:30 21:39 22:02 WBC RBC Hgb Hct MCV MCH MCHC RDW Plt Count MPV Neutrophils % Lymphocytes % Monocytes % Eosinophils % Basophils % Sodium Cancelled Potassium Cancelled Chloride Cancelled Carbon Dioxide Cancelled Anion Gap Cancelled BUN Cancelled Creatinine Cancelled Creat Clearance w eGFR Cancelled POC Glucometer 164 Random Glucose Cancelled Calcium Cancelled Phosphorus Magnesium Total Bilirubin Cancelled AST Cancelled ALT Cancelled Alkaline Phosphatase Cancelled Creatine Kinase Cancelled Troponin I Cancelled < 0.02 Total Protein Cancelled Albumin Cancelled 05/03/17 05/03/17 05/03/17 05:12 05:30 05:30 WBC 6.1 RBC 4.49 Hgb 14.1 Hct 44.0 MCV 98.0 H MCH 31.5 MCHC 32.2 RDW 17.8 H Plt Count 223 MPV 8.3 Neutrophils % 60.3 Lymphocytes % 22.5 D Monocytes % 9.0 Eosinophils % 5.5 H Basophils % 2.7 H D Sodium 136 Potassium 4.9 Chloride 96 L Carbon Dioxide 24 Anion Gap 16 BUN 22 H Creatinine 6.5 H Creat Clearance w eGFR 6.44 POC Glucometer 141 Random Glucose 162 H Calcium 9.1 Phosphorus 6.3 H Magnesium 2.2 Total Bilirubin 0.7 AST 25 ALT 34 Alkaline Phosphatase 72 Creatine Kinase Troponin I Total Protein 8.7 H Albumin 3.7 05/03/17 05/03/17 09:20 11:56 WBC RBC Hgb Hct MCV MCH MCHC RDW Plt Count MPV Neutrophils % Lymphocytes % Monocytes % Eosinophils % Basophils % Sodium Potassium Chloride Carbon Dioxide Anion Gap BUN Creatinine Creat Clearance w eGFR POC Glucometer 164 Random Glucose Calcium Phosphorus Magnesium Total Bilirubin AST ALT Alkaline Phosphatase Creatine Kinase Troponin I < 0.02 Total Protein Albumin HOSPITAL COURSE: Date of Admission:05/02/17 Date of Discharge: 05/03/17 Pre hospital course 66 year-old female with a PMH significant for HTN, HLD, CVA/TIAs, NIDDM, and ESRD on HD (T,Th,S). With multiple admissions for altered mental status, most recently 03/23 - 03/26/2017. Per history provided by patient's children, patient missed the last three evening doses of her anti-hypertensive medications and missed this morning's dose as well. She went to dialysis today as scheduled. At the conclusion of the session she appeared confused to the staff who activated EMS. When patient got to the ED she was severely hypertensive and combative. Her symptoms abated as her BP improved and she returned to baseline functioning. ER course was notable for: (1) BP 216/106 (2) CT head negative for acute process Subsequent hospital course by problem list Altered mental status, multifactorial --hypertensive encephalopathy: patient missed three days of anti- hypertensive medications; mental status improved in ED with lowering of BP; multiple past admissions demonstrated same pattern --TIA v. CVA: CT head negative for acute process; apparently MRI is not an option for this patient due to extreme anxiety --multi-infarct dementia: seen and evaluated by Dr. Shaikh on last admission ; consider starting Aricept and Namenda; has follow up appointment with Dr. Shaikh next week Hypertensive emergency --BP 216/106 on admission with AMS --BP under good control with restarting of home meds --continued amlodipine, metoprolol, nifedipine Hyperlipidemia --continued Lipitor h/o CVA/TIAs --continued ASA, Plavix, Keppra NIDDM --HgbA1C 9.7 on 03/23/2017 --Novolog sliding scale coverage while inpatient ESRD on HD --next HD treatment tomorrow --fluid restrict 1.2L FEN Fluids: PO intake adequate Electrolytes: repleted as indicated Nutrition: low sodium, diabetic DVT prophylaxis: subq heparin Minutes to complete discharge: 35 Discharge Summary Reason For Visit: END STAGE RENAL FAILURE ON DIALYSIS,AMS Current Active Problems Altered mental status (Acute) ESRD (end stage renal disease) (Acute) Hypertensive emergency (Acute) Condition: Improved - Instructions Diet, Activity, Other Instructions: It is VERY IMPORTANT that you take your blood pressure medications every day as directed. We have prescribed an extended release form of metoprolol for you which only needs to be taken once daily. It is called Toprol XL. Take this medication with your other medications in the morning. STOP taking the twice daily metoprolol. You should follow up with Dr. Shakih for your scheduled appointment next week. You should also check in with Dr. Lutz/NICHOLAS Colon to have your blood pressure checked regularly. Advise them you were changed to Toprol XL. Return to the emergency department for any new or worsening symptoms. Referrals: Eric Shaikh MD [Staff Physician] - 1 Week Loren Lutz MD [Staff Physician] - Disposition: HOME - Home Medications Comprehensive Discharge Medication List: Ambulatory Orders Atorvastatin Ca [Lipitor] 20 mg PO HS 11/12/15 levETIRAcetam [Keppra -] 250 mg PO BID 30 Days tablet 11/16/15 Metoprolol Tartrate [Lopressor -] 50 mg PO BID #60 tablet 11/17/15 Calcium Acetate [Phoslo -] 667 mg PO TIDCM 12/01/15 Clopidogrel Bisulfate [Plavix -] 75 mg PO DAILY tablet 11/03/16 Aspirin 81 mg PO DAILY 03/24/17 Nifedipine ER [Procardia XL -] 60 mg PO DAILY 03/24/17 Epoetin Twan [Epogen] 4,000 unit IV WEEKLY 05/02/17 This patient is new to me today: No Emergency Visit: Yes ED Registration Date: 05/02/17 Care time: The patient presented to the Emergency Department on the above date and was hospitalized for further evaluation of their emergent condition. Critical Care patient: No - Discharge Referral Referred to [facility] No
== END 2017-05-03 18:27 | disposition home or self-care (01) | DRG 199 ==
LOC: JER 10:36 → JERBED 14:34 → J4S 20:59
PROVIDERS: ADMIT Internal Medicine; ATTEND Nurse Practitioner Acute Care
DX: I16.1 Hypertensive emergency (principal); I67.4 Hypertensive encephalopathy; I25.9 Chronic ischemic heart disease, unspecified; I69.354 Hemiplegia and hemiparesis following cerebral infarction affecting left non-dominant side; K21.9 Gastro-esophageal reflux disease without esophagitis; E87.5 Hyperkalemia; F01.51 Vascular dementia, unspecified severity, with behavioral disturbance; E78.00 Pure hypercholesterolemia, unspecified; D64.9 Anemia, unspecified; E55.9 Vitamin D deficiency, unspecified; I12.0 Hypertensive chronic kidney disease with stage 5 chronic kidney disease or end stage renal disease; N18.6 End stage renal disease; N25.0 Renal osteodystrophy; T86.12 Kidney transplant failure; Z86.73 Personal history of transient ischemic attack (TIA), and cerebral infarction without residual deficits
CPT/HCPCS: 36415; 70450-TC; 71045-TC-FY; 80053; 82465; 82550; 82962; 83718; 83721; 83735; 84100; 84478; 84484; 85025; 85610; 93005; 93010; 99285-25; J1644

== ENCOUNTER 2017-05-31 12:17 | Emergency (ER) | payer OTHER ==
[2017-05-31 12:23] VITALS: PULSE 64; TEMP 97.6; BMI 26.4
--- NOTE | 2017-05-31 13:12 | PDOC ---
History of Present Illness - General History Source: Patient Exam Limitations: No Limitations - History of Present Illness Initial Comments: 05/31/17 16:19 The patient is a 66 year old female, with a significant past medical history of Anemia, Dementia, DM, GERD, HTN, HLD, Hx of seizures, ESRD (s/p renal transplant , on HD Tue,Callie,Sat) who presents to the emergency department with lower abdominal pain for the past month. Patient reports pain is localized to the suprapubic region, intermittent in nature associated with nausea and vomiting ( nonbilious,nonbloody). Patient denied taking any medications for relief. Patient also reports routine visit at PCPs office however and was sent to the ED for worsening symptoms. Patient is unable to tolerate PO solids or liquids and presents to the ED for further evaluation. Patient denies chest pain, headache or dizziness. Patient denies fever, chills, diarrhea or constipation. Patient denies dysuria, frequency, urgency or hematuria. Patient denies sick contacts or recent travel. Allergies: codeine, promethazine HCl Past surgical history: Appendectomy Social history: None reported PCP: Dr. Loren Lutz <Azra Ramos - Last Filed: 05/31/17 17:10> <Miranda Arroyo - Last Filed: 06/01/17 13:43> - General Chief Complaint: Pain, Acute Stated Complaint: ABD PAIN Time Seen by Provider: 05/31/17 13:12 Past History <Azra Ramos - Last Filed: 05/31/17 17:10> - Past Medical History Anemia: Yes Asthma: No Cancer: No Cardiac Disorders: Yes (angina) CVA: Yes (L sided weakness) COPD: No CHF: No Dementia: Yes (AMS) Diabetes: Yes Dialysis: Yes ([facility], [facility]PL[facility]) GI Disorders: Yes (GERD) Disorders: No HTN: Yes Hypercholesterolemia: Yes Liver Disease: No Seizures: Yes Thyroid Disease: No - Surgical History Abdominal Surgery: Yes Appendectomy: Yes Neurologic Surgery: No - Immunization History Immunization Up to Date: Yes - Suicide/Smoking/Psychosocial Hx Smoking Status: No Smoking History: Never smoked Have you smoked in the past 12 months: No Number of Cigarettes Smoked Daily: 0 Information on smoking cessation initiated: No Hx Alcohol Use: No Drug/Substance Use Hx: No Substance Use Type: None Hx Substance Use Treatment: No <Miranda Arroyo Last Filed: 06/01/17 13:43> - Past Medical History Allergies/Adverse Reactions: Allergies Allergy/AdvReac Type Severity Reaction Status Date / Time codeine Allergy Verified 05/02/17 10:51 promethazine HCl Allergy Verified 05/02/17 10:51 [From Phenergan] Home Medications: Ambulatory Orders Atorvastatin Ca [Lipitor] 20 mg PO HS 11/12/15 levETIRAcetam [Keppra -] 250 mg PO BID 30 Days tablet 11/16/15 Clopidogrel Bisulfate [Plavix -] 75 mg PO DAILY tablet 11/03/16 Amlodipine Besylate [Norvasc -] 10 mg PO DAILY 05/31/17 Calcium Acetate 667 mg PO TID 05/31/17 Donepezil HCl [Aricept] 10 mg PO HS 05/31/17 Insulin Degludec [Tresiba Flextouch U-100] 10 units SQ AM 05/31/17 Insulin Lispro [Humalog] 1 unit SCJ PRN PRN 05/31/17 Memantine HCl 10 mg PO DAILY 05/31/17 Metoprolol Succinate [Toprol Xl] 50 mg PO BID 05/31/17 Ondansetron HCl [Zofran] 4 mg PO BID PRN #10 tablet 05/31/17 Review of Systems - Review of Systems Able to Perform ROS?: Yes Comments:: 05/31/17 16:22 GENERAL/CONSTITUTIONAL: No: fever, chills, weakness, loss of appetite. HEAD, EYES, EARS, NOSE AND THROAT: No: change in vision, ear pain, discharge, sore throat, throat swelling. CARDIOVASCULAR: No: chest pain, lightheadedness, palpitations, syncope RESPIRATORY: No: cough, shortness of breath, wheezing, hemoptysis, stridor. GASTROINTESTINAL: +nausea, vomiting, abdominal pain. No: diarrhea, rectal bleeding, constipation. GENITOURINARY: No: dysuria, hematuria, frequency, urgency, flank pain. MUSCULOSKELETAL: No: back pain, neck pain, joint pain, muscle swelling or pain SKIN: No: lesions, pallor, rash or easy bruising. NEUROLOGIC: No: headache, vertigo, paresthesias, weakness ENDOCRINE: No: unexplained weight gain or loss HEMATOLOGIC/LYMPHATIC: No: anemia, easy bleeding, swelling nodes <Richard,Azra - Last Filed: 05/31/17 17:10> *Physical Exam - Vital Signs Last Vital Signs Temp Pulse Resp BP Pulse Ox 97.6 F 64 15 182/72 98 05/31/17 12:20 05/31/17 12:20 05/31/17 12:20 05/31/17 12:20 05/31/17 12:20 - Physical Exam Comments: 05/31/17 16:22 GENERAL: The patient is in no acute distress. HEAD: Normal with no signs of trauma. EYES: PERRLA, EOMI, sclera anicteric, conjunctiva clear. ENT: Ears normal, nares patent, oropharynx clear without exudates. Moist mucous membranes. NECK: Normal range of motion, supple without lymphadenopathy, JVD, or masses. LUNGS: Breath sounds equal, clear to auscultation bilaterally. No wheezes, and no crackles. HEART:Regular rate and rhythm, normal S1 and S2 without murmur, rub or gallop. ABDOMEN: +Suprapubic tenderness. Soft, nontender, normoactive bowel sounds. No guarding, no rebound. EXTREMITIES: + LUE fistula with (+) thrill and (+) bruit. Normal range of motion , no edema. No clubbing or cyanosis. No erythema, or tenderness. NEUROLOGICAL: Cranial nerves II through XII grossly intact. Normal speech. No focal neurological deficits. MUSCULOSKELETAL: Back nontender to palpation, no CVA tenderness SKIN: Warm, Dry, normal turgor, no rashes or lesions noted. <Azra Ramos - Last Filed: 05/31/17 17:10> - Vital Signs Last Vital Signs Temp Pulse Resp BP Pulse Ox 97.6 F 64 15 182/72 98 05/31/17 12:20 05/31/17 12:20 05/31/17 12:20 05/31/17 12:20 05/31/17 12:20 <Miranda Arroyo - Last Filed: 06/01/17 13:43> ED Treatment Course - LABORATORY CBC & Chemistry Diagram: 05/31/17 13:45 05/31/17 13:45 - ADDITIONAL ORDERS Additional order review: Laboratory Results 05/31/17 13:45 Sodium 133 L Potassium 5.3 H Chloride 95 L Carbon Dioxide 26 Anion Gap 12 BUN 39 H Creatinine 6.8 H Creat Clearance w eGFR 6.11 Random Glucose 232 H Calcium 8.6 Total Bilirubin 0.4 D AST 35 ALT 53 Alkaline Phosphatase 74 Total Protein 8.5 H Albumin 3.6 Total Amylase 68 Lipase 320 05/31/17 13:45 RBC 4.10 MCV 96.2 H MCHC 33.2 RDW 15.1 D MPV 10.2 D Neutrophils % 60.6 Lymphocytes % 18.0 Monocytes % 7.5 Eosinophils % 12.4 H D Basophils % 1.5 - Medications Given in the ED: ED Medications Discontinued Medications Generic Name Dose Route Start Last Admin Trade Name Freq PRN Reason Stop Dose Admin Sodium Chloride 1,000 mls @ 125 mls/hr 05/31/17 13:13 05/31/17 14:10 Normal Saline - IV 05/31/17 21:12 Not Given ASDIR STA <Azra Ramos - Last Filed: 05/31/17 17:10> - LABORATORY CBC & Chemistry Diagram: 05/31/17 13:45 05/31/17 13:45 <Miranda Arroyo - Last Filed: 06/01/17 13:43> Medical Decision Making - Medical Decision Making 05/31/17 17:39 Ms Murphy is a 66 yo F with a history of ESRD on HD, HTN, HLD She has had abdominal pain for 1-2 months INtermittent vomiting No fevers or chills No diarrhea Pt was seen by PMD today and sent to the ER for evaluation On examination: Lower abdominal tenderness to palpation No epigastric tenderness No RUQ tenderness No abdominal distention Will do: Labs CT Re assess 05/31/17 17:42 Laboratory Tests 05/31/17 05/31/17 13:45 13:45 WBC 7.9 Hgb 13.1 Hct 39.5 Plt Count 139 D Sodium 133 L Potassium 5.3 H Chloride 95 L Carbon Dioxide 26 BUN 39 H Creatinine 6.8 H Random Glucose 232 H Total Amylase [address]: 1) RLL nodule (new) 2) No diverticulitis, (+) diverticulosis Case reviewed with PMD - MANAGER FLEET Darlene I have reviewed all findings including nodule with her I have reviewed these findings with the patient and her daughter They understand the importance of prompt follow up Pt given copies of CT and labs Pt has follow up with GI and Surgery Pt will be discharged on Zantac and Zofran Clinical Impression: Abdominal pain, initial presentation <Miranda Arroyo - Last Filed: 06/01/17 13:43> *DC/Admit/Observation/Transfer - Attestations Scribe Attestion: 05/31/17 16:23 Documentation prepared by Azra Ramos, acting as director biomedical engineering for Miranda Arroyo MD <Azra Ramos - Last Filed: 05/31/17 17:10> - Discharge Dispostion Admit: No <Miranda Arroyo - Last Filed: 06/01/17 13:43> Diagnosis at time of Disposition: Nausea & vomiting Qualifiers: Vomiting type: unspecified Vomiting Intractability: non-intractable Qualified Code(s): R11.2 - Nausea with vomiting, unspecified - Discharge Dispostion Disposition: HOME Condition at time of disposition: Stable - Prescriptions Prescriptions: Ondansetron HCl [Zofran] 4 mg PO BID PRN #10 tablet PRN Reason: Nausea - Referrals Referrals: Loren Lutz MD [Primary Care Provider] - - Patient Instructions Printed Discharge Instructions: DI for Abdominal Pain-Adult, DI for Nausea -- Adult Additional Instructions: Ms Murphy Thank you for coming in to the ER today Please take Zofran as needed for nausea Please monitor for fevers, increased pain, abdominal pain that is severe Please modify diet to director quality assurance foods, no heavy meals, avoid salty, spicy, acidic foods Please keep your follow up appointment Return to the ER for any other concerns or complaints
[2017-05-31] MEDS ORDERED: SODIUM CHLORIDE 1,000 ML IV STA (13:13)
[2017-05-31 14:10] LABS: BASO % 1.5 % (0-2.0); EOS % 12.4 % (0-4.5); HEMATOCRIT 39.5 % (32.4-45.2); HEMOGLOBIN 13.1 GM/dL (10.7-15.3); MCHC 33.2 g/dl (32.0-36.0); MEAN CELL VOLUME 96.2 fl (80-96); MEAN PLT VOLUME 10.2 fl (7.5-11.1); MONO % 7.5 % (3.8-10.2); NEUT % 60.6 % (42.8-82.8); PLATELET COUNT 139 K/MM3 (134-434); RDW 15.1 % (11.6-15.6); WHITE BLOOD COUNT 7.9 K/mm3 (4.0-10.0)
[2017-05-31 14:34] LABS: ALBUMIN 3.6 g/dl (3.4-5.0); ALK PHOS 74 U/L (45-117); AMYLASE 68 U/L (25-115); ANION GAP 12 (8-16); BILIRUBIN,TOTAL 0.4 mg/dL (0.2-1.0); BLOOD UREA NITROGEN 39 mg/dL (7-18); CALCIUM 8.6 mg/dL (8.5-10.1); CHLORIDE 95 mmol/L (98-107); CO2 26 mmol/L (21-32); CREATININE 6.8 mg/dL (0.55-1.02); GLUCOSE,RANDOM 232 mg/dL (74-106); SGPT/ALT 53 U/L (12-78); SODIUM 133 mmol/L (136-145); TOT PROT 8.5 g/dl (6.4-8.2)
[2017-05-31 14:35] LABS: LIPASE 320 U/L (73-393); POTASSIUM 5.3 mmol/L (3.5-5.1)
[2017-05-31 14:36] LABS: SGOT/AST 35 U/L (15-37)
[2017-05-31 18:16] VITALS: BP 186/87
== END 2017-05-31 15:16 | disposition home or self-care (01) ==
LOC: JER 12:17
DX: R11.2 Nausea with vomiting, unspecified (principal); E78.5 Hyperlipidemia, unspecified; E11.22 Type 2 diabetes mellitus with diabetic chronic kidney disease; N18.6 End stage renal disease; Z79.4 Long term (current) use of insulin
CPT/HCPCS: 36415; 74176-TC; 80053; 82150; 83690; 85025; 99283-25

== ENCOUNTER 2017-06-22 02:20 | Emergency (ER) | payer OTHER ==
[2017-06-22 02:26] VITALS: PULSE 73; TEMP 97.8; BMI 25.7
--- NOTE | 2017-06-22 02:48 | PDOC ---
Attending Attestation - HPI HPI: 06/22/17 04:02 Patient is a 66 year old female with a significant past medical history of HTN, HLD, CVA/TIAs, NIDDM, and ESRD on HD (T,Th,S) who presents to the ED with complaints of high blood pressure that she says began yesterday morning. Patient reports checking her blood pressure this morning and noticed it was high at 200 systolic. She reports experiencing associated chest pressure yesterday night at 10pm that she states quickly subsided, prompting her to come into the ED for further evaluation. Patient's BP was checked in the ED and was found to be 200/78 followed by secondary test of 191/80, with a BGL of 330. . Denies nausea, vomiting. Denies contact with sick individuals, out of state traveling. Denies any other symptoms. Allergies: Codeine, Promethazine Social history: No smoking. No alcohol. No illicit drugs. Surgical history: Appendectomy, , Hysterectomy, Kidney Transplant ( 2006 [facility]) PMD: None <Chance Molina - Last Filed: 06/22/17 04:02> - Resident Resident Name: Angelo Ramirez - ED Attending Attestation I have performed the following: I have examined & evaluated the patient, The case was reviewed & discussed with the resident, I agree w/resident's findings & plan, Exceptions are as noted - Physicial Exam PE: 06/22/17 19:34 *Physical Exam General Appearance: Yes: Appropriately Dressed. No: Apparent Distress, Intoxicated HEENT: positive: EOMI, NORAH, Normal ENT Inspection, Normal Voice, TMs Normal, Pharynx Normal. negative: Pale Conjunctivae, Photophobia, Scleral Icterus (R), Scleral Icterus (L) Neck: positive: Trachea midline, Normal Thyroid, Supple. negative: Tender, Rigid, Carotid bruit, Stridor, Lymphadenopathy (R), Lymphadenopathy (L), Thyromegaly Respiratory/Chest: positive: Lungs Clear, Normal Breath Sounds. negative: Chest Tender, Respiratory Distress, Accessory Muscle Use, Labored Respiration, RES, Crackles, Rales, Rhonchi, Stridor, Wheezing, Dullness Cardiovascular: positive: Regular Rhythm, Regular Rate, S1, S2. negative: Edema , JVD, Murmur, Bradycardia, Tachycardia Vascular Pulses: Dorsalis-Pedis (R): 2+, Doralis-Pedis (L): 2+ Gastrointestinal/Abdominal: positive: Normal Bowel Sounds, Flat, Soft. negative : Tender, Organomegaly, Pulsatile Mass, Increased Bowel Sounds, Decreased BS, Distended, Guarding, Rebound, Hernia, Hepatomegaly, Spleenomegaly Lymphatic: negative: Adenopathy, Tenderness Musculoskeletal: positive: Normal Inspection. negative: CVA Tenderness, Decreased Range of Motion Extremity: positive: Normal Capillary Refill, Normal Inspection, Normal Range of Motion, Pelvis Stable. negative: Tender, Pedal Edema, Swelling, Erythema Integumentary: positive: Normal Color, Dry, Warm. negative: Cyanotic, Erythema , Jaundice, Rash Neurologic: positive: [facility] II-XII NML intact, Fully Oriented, Alert, Normal Mood/ Affect, Motor Strength 5/5. negative: EOM Palsy, Facial Droop, Sensory Deficit - Medical Decision Making 06/22/17 19:34 Pt treated and released <Sotero Fishman - Last Filed: 06/22/17 19:34>
[2017-06-22] MEDS ORDERED: amLODIPine BESYLATE 10 MG TABLET (FP) PO ONE (02:52)
--- NOTE | 2017-06-22 02:59 | PDOC ---
History of Present Illness - General Chief Complaint: Blood Pressure Problem Stated Complaint: BLOOD SUGAR PROBLEM Time Seen by Provider: 06/22/17 02:25 History Source: Patient Exam Limitations: No Limitations - History of Present Illness Initial Comments: 06/22/17 02:54 Patient is a 66F with history anemia, dementia, DM, GERD, HLD, Seizures, ESRD on TThS dialysis here today complaining of high blood pressure to 220 at home. She reports compliance with medications but does not know what she takes for her blood pressure. She states that 4 hours ago she had an episode of chest pain that she describes as a substernal pressure that quickly resolved. Denies associated shortness of breath, nausea, vomiting, fevers, chills, diaphoresis, leg swelling and history of blood clots. EMS reports blood sugar was 330. Past History - Past Medical History Allergies/Adverse Reactions: Allergies Allergy/AdvReac Type Severity Reaction Status Date / Time codeine Allergy Verified 06/22/17 02:21 promethazine HCl Allergy Verified 06/22/17 02:21 [From Phenergan] Home Medications: Ambulatory Orders Atorvastatin Ca [Lipitor] 20 mg PO HS 11/12/15 levETIRAcetam [Keppra -] 250 mg PO BID 30 Days tablet 11/16/15 Clopidogrel Bisulfate [Plavix -] 75 mg PO DAILY tablet 11/03/16 Amlodipine Besylate [Norvasc -] 10 mg PO DAILY 05/31/17 Calcium Acetate 667 mg PO TID 05/31/17 Donepezil HCl [Aricept] 10 mg PO HS 05/31/17 Insulin Degludec [Tresiba Flextouch U-100] 10 units SQ AM 05/31/17 Insulin Lispro [Humalog] 0 unit SCJ PRN PRN 05/31/17 Memantine HCl 10 mg PO DAILY 05/31/17 Metoprolol Succinate [Toprol Xl] 50 mg PO BID 05/31/17 Anemia: Yes Asthma: No Cancer: No Cardiac Disorders: Yes (angina) CVA: Yes (L sided weakness) COPD: No CHF: No Dementia: Yes (AMS) Diabetes: Yes Dialysis: Yes (FISTULA L UPPER ARM, KIDNEY TRANSPLANT) GI Disorders: Yes (GERD) Disorders: No HTN: Yes Hypercholesterolemia: Yes Liver Disease: No Seizures: Yes Thyroid Disease: No Other medical history: dialysis Tues,Thurs,Sat - Surgical History Abdominal Surgery: Yes Appendectomy: Yes Neurologic Surgery: No - Immunization History Immunization Up to Date: Yes - Suicide/Smoking/Psychosocial Hx Smoking Status: No Smoking History: Never smoked Have you smoked in the past 12 months: No Number of Cigarettes Smoked Daily: 0 Hx Alcohol Use: No Drug/Substance Use Hx: No Substance Use Type: None Hx Substance Use Treatment: No Review of Systems - Review of Systems Comments:: 06/22/17 02:56 GENERAL/CONSTITUTIONAL: No fever or chills. No weakness. HEAD, EYES, EARS, NOSE AND THROAT: No change in vision. No sore throat. CARDIOVASCULAR: Positive for chest pain. Negative for shortness of breath RESPIRATORY: No cough, wheezing, or hemoptysis. GASTROINTESTINAL: No nausea, vomiting, diarrhea or constipation. GENITOURINARY: No dysuria, frequency, or change in urination. MUSCULOSKELETAL: No joint or muscle swelling or pain. No neck or back pain. SKIN: No rash NEUROLOGIC: No headache, vertigo, loss of consciousness, or change in strength/ sensation. ENDOCRINE: No increased thirst. No abnormal weight change HEMATOLOGIC/LYMPHATIC: Positive for anemia, no history of blood clots. ALLERGIC/IMMUNOLOGIC: No hives or skin allergy. *Physical Exam - Vital Signs Last Vital Signs Temp Pulse Resp BP Pulse Ox 97.8 F 73 18 200/78 98 06/22/17 02:20 06/22/17 02:20 06/22/17 02:20 06/22/17 02:20 06/22/17 02:20 - Physical Exam Comments: 06/22/17 02:56 GENERAL: Awake, alert, and fully oriented, in no acute distress HEAD: No signs of trauma, normocephalic, atraumatic EYES: PERRLA, EOMI, sclera anicteric, conjunctiva clear ENT: Auricles normal inspection, hearing grossly normal, nares patent, oropharynx clear without exudates. Moist mucosa NECK: Normal ROM, supple, no lymphadenopathy, JVD, or masses LUNGS: No distress, speaks full sentences, clear to auscultation bilaterally HEART: Regular rate and rhythm, normal S1 and S2, 3/6 diastolic blowing murmur ABDOMEN: Soft, nontender, normoactive bowel sounds. No guarding, no rebound. No masses EXTREMITIES: Normal inspection, Normal range of motion, no edema. No clubbing or cyanosis. NEUROLOGICAL: Cranial nerves II through XII grossly intact. Normal speech, no focal sensorimotor deficits SKIN: Warm, Dry, normal turgor, no rashes or lesions noted. ED Treatment Course - LABORATORY CBC & Chemistry Diagram: 06/22/17 03:00 06/22/17 03:00 - RADIOLOGY Radiology Studies Ordered: Category Date Time Status CHEST X-RAY PORTABLE* [RAD] Stat Radiology 06/22/17 02:47 Ordered Medical Decision Making - Medical Decision Making 06/22/17 02:57 Patient is a 66F with history of anemia, dementia, DM, GERD, HLD, Seizures, ESRD TThS here today complaining of high blood pressure and an episode of chest pain. Patient reports taking her medication as directed, suspect patient has not been fully compliant given blood sugar and prior visit history. Will give home dose of amlodipine. Patient currently symptom free and initial pain atypical. Will evaluate with cbc, cmp, trop, ekg, pt/inr, cxr. Will discharge after one troponin if normal. 06/22/17 03:09 CXR shows cardiomegaly, mild pulmonary vascular congestion. 06/22/17 03:37 EKG shows normal sinus rhythm with rate of 73. No st elevations/depressions. Normal axis. No significant t wave abnormalities. Normal MS/QRS/QTc intervals. 06/22/17 03:45 Laboratory Tests 06/22/17 06/22/17 06/22/17 03:00 03:00 03:00 WBC 9.0 Hgb 12.1 Hct 36.7 Plt Count 143 VBG pH 7.36 Potassium 4.6 Random Glucose 357 H* Troponin I < 0.02 Acetone, Qual 06/22/17 03:00 WBC Hgb Hct Plt Count VBG pH Potassium Random Glucose Troponin I Acetone, Qual Negative L CBC normal. VBG pH normal. Glucose elevated to 357, not in DKA/HHS. Acetone negative. Troponin undetectable. Patient reassessed, remains asymptomatic. BP 191/77. Dialysis due at 6am. Believe best treatment for patient's hypertension is dialysis. Per ACEP guidelines, do not need to normalize patient's BP today. Will monitor in the ED then discharge to dialysis. *DC/Admit/Observation/Transfer Diagnosis at time of Disposition: Hypertension - Discharge Dispostion Disposition: HOME Condition at time of disposition: Good Admit: No - Referrals Referrals: Loren Lutz MD [Primary Care Provider] - - Patient Instructions Printed Discharge Instructions: DI for High Blood Pressure Additional Instructions: You were seen today in the ED for high blood pressure. Please return if you have any new, worsening, or concerning symptoms. Please go to dialysis today at 6am as we discussed. Please follow up with your primary care physician this week. Print Language: MOSOTHO - Post Discharge Activity
[2017-06-22] MEDS ORDERED: amLODIPine BESYLATE 5 MG TABLET (FP) ONE (03:00)
[2017-06-22 03:07] LABS: BASO % 1.2 % (0-2.0); HEMATOCRIT 36.7 % (32.4-45.2); HEMOGLOBIN 12.1 GM/dL (10.7-15.3); LYMPH % 9.2 % (8-40); MCH 31.2 pg (25.7-33.7); MCHC 32.9 g/dl (32.0-36.0); MEAN CELL VOLUME 94.9 fl (80-96); MEAN PLT VOLUME 8.7 fl (7.5-11.1); MONO % 5.5 % (3.8-10.2); NEUT % 75.1 % (42.8-82.8); PLATELET COUNT 143 K/MM3 (134-434); RBC 3.87 M/mm3 (3.60-5.2); RDW 14.9 % (11.6-15.6); VENOUS PH 7.36 (7.32-7.42); VENOUS PO2 46.9 mmHg (28-48)
[2017-06-22 03:22] LABS: INR 0.94 (0.82-1.09); PROTHROMBIN TIME (PATIENT) 10.6 SEC (9.98-11.88)
[2017-06-22 03:30] LABS: ALBUMIN 3.7 g/dl (3.4-5.0); ANION GAP 10 (8-16); BILIRUBIN,TOTAL 0.3 mg/dL (0.2-1.0); BLOOD UREA NITROGEN 38 mg/dL (7-18); CALCIUM 8.8 mg/dL (8.5-10.1); CHLORIDE 96 mmol/L (98-107); CO2 28 mmol/L (21-32); MAGNESIUM 1.9 mg/dL (1.8-2.4); POTASSIUM 4.6 mmol/L (3.5-5.1); SGOT/AST 61 U/L (15-37); SGPT/ALT 62 U/L (12-78); SODIUM 134 mmol/L (136-145); TOT PROT 8.2 g/dl (6.4-8.2)
[2017-06-22 03:36] LABS: ALK PHOS 76 U/L (45-117); CREATININE 7.4 mg/dL (0.55-1.02)
[2017-06-22 03:42] LABS: GLUCOSE,RANDOM 357 mg/dL (74-106)
[2017-06-22 05:13] VITALS: BP 195/74
--- NOTE | 2017-06-22 11:04 | EKG ---
Test Reason : Blood Pressure : / mmHG Vent. Rate : 073 BPM Atrial Rate : 073 BPM P-R Int : 180 ms QRS Dur : 098 ms QT Int : 420 ms P-R-T Axes : 051 026 058 degrees QTc Int : 462 ms NORMAL SINUS RHYTHM NORMAL ECG WHEN COMPARED WITH ECG OF 03-MAY-2017 09:21, NON-SPECIFIC CHANGE IN ST SEGMENT IN LATERAL LEADS Confirmed by TONY DICK, CARLI ([id number]) on 06/22/2017 11:04:21 AM Referred By: Confirmed By:CARLI JIMENEZ MD
== END 2017-06-22 05:41 | disposition home or self-care (01) ==
LOC: JER 02:20
DX: I10 Essential (primary) hypertension (principal); I13.11 Hypertensive heart and chronic kidney disease without heart failure, with stage 5 chronic kidney disease, or end stage renal disease; E11.22 Type 2 diabetes mellitus with diabetic chronic kidney disease; N18.6 End stage renal disease; N17.8 Other acute kidney failure; Z99.2 Dependence on renal dialysis; Z79.4 Long term (current) use of insulin; F03.90 Unspecified dementia, unspecified severity, without behavioral disturbance, psychotic disturbance, mood disturbance, and anxiety; D64.9 Anemia, unspecified; I20.9 Angina pectoris, unspecified; K21.9 Gastro-esophageal reflux disease without esophagitis; I69.854 Hemiplegia and hemiparesis following other cerebrovascular disease affecting left non-dominant side; Z86.69 Personal history of other diseases of the nervous system and sense organs
CPT/HCPCS: 36415; 71045-TC-FY; 80053; 82009; 82550; 82803; 83735; 84484; 85025; 85610; 93005; 93010; 99283-25

== ENCOUNTER 2017-07-17 10:18 | Day surgery (SDC) | payer OTHER ==
[2017-07-17 11:20] VITALS: TEMP 97.7
--- NOTE | 2017-07-17 12:19 | PROC ---
Endoscopy Procedure Endoscopy procedure completed. Please see scanned procedure report.
[2017-07-17 13:14] VITALS: BP 159/74; PULSE 62
--- NOTE | 2017-07-18 16:46 | PATH ---
Surgical Pathology Report Patient Name: KOSTAS HOLT [facility]. Rec. #: [id number] /Age/Gender: 1950 (Age: 66) / F Account: [id number] Location: U-ENDOSCOPY Taken: 07/17/2017 Received: 07/17/2017 Reported: 07/18/2017 Physicians: Milton Lancaster M.D. Specimen(s) Received A: SECOND PORTION SMALL BOWEL, BIOPSY B: BX ANTRUM BODY C: BX OF FUNDUS Clinical History Dysphagia, nausea with vomiting Postoperative diagnosis: Gastritis Final Diagnosis A. JEJUNUM, SECOND PORTION, BIOPSY: SMALL BOWEL MUCOSA WITHOUT SIGNIFICANT PATHOLOGIC FINDINGS. B. STOMACH, BODY, BIOPSY: GASTRIC BODY MUCOSA WITH MILD CHRONIC GASTRITIS. IMMUNOHISTOCHEMICAL STAIN FOR H. PYLORI IS NEGATIVE. C. STOMACH, FUNDUS, BIOPSY: GASTRIC OXYNTIC MUCOSA WITH MILD CHRONIC GASTRITIS. IMMUNOHISTOCHEMICAL STAIN FOR H. PYLORI IS NEGATIVE. Electronically Signed Melva Shipley M.D. Gross Description A. Received in formalin, labeled "second portion of jejunum" are 2 hill, irregular portions of soft tissue averaging 0.2 cm. in greatest dimension. The specimens are submitted in toto in one cassette. B. Received in formalin, labeled "interim body" are 2 hill, irregular portions of soft tissue measuring 0.2 and 0.4 cm. in greatest dimension. The specimens are submitted in toto in one cassette. C. Received in formalin, labeled "fundus" is a hill, irregular portion of soft tissue measuring 0.5 cm. in greatest dimension. The specimen is submitted in toto in one cassette. 07/17/2017 [facility]07/17/2017
== END 2017-07-17 13:15 | disposition home or self-care (01) ==
LOC: JASU-ENDO 10:18
PROVIDERS: ATTEND Internal Medicine Gastroenterology
PROC: 0DB68ZX Excision of Stomach, Via Natural or Artificial Opening Endoscopic, Diagnostic (ICD-10-PCS; 2017-07-17)
PROC: 0DB98ZX Excision of Duodenum, Via Natural or Artificial Opening Endoscopic, Diagnostic (ICD-10-PCS; principal; 2017-07-17 12:00)
DX: K29.70 Gastritis, unspecified, without bleeding (principal); R11.2 Nausea with vomiting, unspecified
CPT/HCPCS: 36415; 82962; 84132; 88305-TC; 88342-TC

== ENCOUNTER 2017-07-31 16:31 | Emergency (ER) | payer OTHER ==
[2017-07-31 17:00] VITALS: BP 175/72; PULSE 69; TEMP 97.4; BMI 26.4
--- NOTE | 2017-07-31 17:25 | PDOC ---
History of Present Illness - General Chief Complaint: Shortness of Breath Stated Complaint: SOB Time Seen by Provider: 07/31/17 16:51 History Source: Patient Exam Limitations: No Limitations - History of Present Illness Initial Comments: 07/31/17 17:21 The patient is a 66F with a PMH of anemia, dementia, DM, GERD, HTN, HLD, Hx of seizures, ESRD (s/p renal transplant, on HD Mon,Callie,Mon) who presents to the ER with complaints of shortness of breath. The patient states that at 4pm, she began to feel shortness of breath with chest discomfort. This was associated with a buzzing sensation in her ears. She states that both of these went away and now has no acute complaints. She denies any current CP, SOB, fever, chills, nausea, vomiting, headache, numbness, tingling, or weakness. Past History - Past Medical History Allergies/Adverse Reactions: Allergies Allergy/AdvReac Type Severity Reaction Status Date / Time codeine Allergy Verified 07/31/17 17:00 promethazine HCl Allergy Verified 07/31/17 17:00 [From Phenergan] Home Medications: Ambulatory Orders Atorvastatin Ca [Lipitor] 20 mg PO HS 11/12/15 levETIRAcetam [Keppra -] 250 mg PO BID 30 Days tablet 11/16/15 Clopidogrel Bisulfate [Plavix -] 75 mg PO DAILY tablet 11/03/16 Amlodipine Besylate [Norvasc -] 10 mg PO DAILY 05/31/17 Calcium Acetate 667 mg PO TID 05/31/17 Donepezil HCl [Aricept] 10 mg PO HS 05/31/17 Insulin Degludec [Tresiba Flextouch U-100] 10 units SQ AM 05/31/17 Insulin Lispro [Humalog] 0 unit SCJ PRN PRN 05/31/17 Memantine HCl 10 mg PO DAILY 05/31/17 Metoprolol Succinate [Toprol Xl] 50 mg PO BID 05/31/17 Pantoprazole Sodium [Protonix -] 40 mg PO DAILY #30 tablet.ec 07/17/17 Guaifenesin [Robitussin] 100 mg PO Q8H #1 bottle 07/31/17 Anemia: Yes Asthma: No Cancer: No Cardiac Disorders: Yes (angina) CVA: Yes (L sided weakness) COPD: No CHF: No Dementia: Yes (AMS) Diabetes: Yes Dialysis: Yes (FISTULA L UPPER ARM, KIDNEY TRANSPLANT) GI Disorders: Yes (GERD) Disorders: No HTN: Yes Hypercholesterolemia: Yes Liver Disease: No Seizures: Yes Thyroid Disease: No - Surgical History Abdominal Surgery: Yes Appendectomy: Yes Neurologic Surgery: No - Immunization History Immunization Up to Date: Yes - Suicide/Smoking/Psychosocial Hx Smoking Status: No Smoking History: Never smoked Have you smoked in the past 12 months: No Number of Cigarettes Smoked Daily: 0 Information on smoking cessation initiated: No Hx Alcohol Use: No Drug/Substance Use Hx: No Substance Use Type: None Hx Substance Use Treatment: No Review of Systems - Review of Systems Able to Perform ROS?: Yes Comments:: 07/31/17 18:11 GENERAL/CONSTITUTIONAL: No fever or chills. No weakness. HEAD, EYES, EARS, NOSE AND THROAT: No change in vision. No ear pain or discharge. No sore throat. CARDIOVASCULAR: Positive for resolved chest pain. No palpitations, or lightheadedness. RESPIRATORY: Positive for resolved shortness of breath. No cough, wheezing, or hemoptysis. GASTROINTESTINAL: No nausea, vomiting, diarrhea, constipation, or abdominal pain. GENITOURINARY: No dysuria, frequency, hematuria, or change in urination. MUSCULOSKELETAL: No joint or muscle swelling or pain. No neck or back pain. SKIN: No rash or lesions. NEUROLOGIC: Positive for resolved buzzing in ear sensation. No headache, numbness, tingling, weakness, loss of consciousness, or change in strength/ sensation. ENDOCRINE: No increased thirst. No abnormal weight change. HEMATOLOGIC/LYMPHATIC: No anemia, easy bleeding, or history of blood clots. ALLERGIC/IMMUNOLOGIC: No hives or skin allergy. Is the patient limited Danish proficient: No *Physical Exam - Vital Signs Last Vital Signs Temp Pulse Resp BP Pulse Ox 97.4 F L 69 18 175/72 100 07/31/17 16:35 07/31/17 16:35 07/31/17 16:35 07/31/17 16:35 07/31/17 16:35 - Physical Exam Comments: 07/31/17 18:12 GENERAL: Well developed, well nourished. Awake and alert. No acute distress. HEENT: Normocephalic, atraumatic. Hearing grossly normal. Moist mucous membranes. PERRLA, EOMI. No conjunctival pallor. Sclera are non-icteric. NECK: Supple. Full ROM. CARDIOVASCULAR: Regular rate and rhythm. No murmurs, rubs, or gallops. PULMONARY: No evidence of respiratory distress. Lungs clear to auscultation bilaterally. No wheezing, rales or rhonchi. ABDOMINAL: Soft. Non-tender. Non-distended. No rebound or guarding. GENITOURINARY: No CVA tenderness bilaterally. MUSCULOSKELETAL: Normal range of motion at all joints. No bony deformities or tenderness. EXTREMITIES: No cyanosis. No clubbing. No edema. No calf tenderness. SKIN: Warm and dry. Normal capillary refill. No rashes. No jaundice. NEUROLOGICAL: Alert, awake, appropriate. Cranial nerves 2-12 intact. Normal speech. Gait is normal without ataxia. PSYCHIATRIC: Cooperative. Good eye contact. Appropriate mood and affect. Heart Score/ECG Review #1 ECG reviewed & interpreted by me at: 17:25 General ECG Interpretation: Sinus Rhythm, Normal Rate, Normal Intervals, No acute ischemic changes Compared to previous ECG there are: No significant change 07/31/17 18:16 NSR Vent rate 64 QRS 94 QTc 486 No acute ischemic changes No STD/JAMI ED Treatment Course - LABORATORY CBC & Chemistry Diagram: 07/31/17 18:28 07/31/17 18:28 - RADIOLOGY Radiology Studies Ordered: Category Date Time Status CHEST X-RAY PORTABLE* [RAD] Stat Radiology 07/31/17 17:13 Ordered Medical Decision Making - Medical Decision Making 07/31/17 18:17 The patient is a 66F with an extensive PMH who presents to the ER with resolved CP and SOB. Patient is negative for Well's Criteria and is not hypoxic, not tachycardic, and not tachypneic. Will r/o ACS with EKG and troponins. Will do CXR for possible PNA. Pt is afebrile and looks well otherwise. PE negative. Will monitor closely. 07/31/17 18:21 XR negative on preliminary read. Pending labs. 07/31/17 18:39 Pt has a heart score of 3. Will 2 trop and d/c home if everything is negative. 07/31/17 18:57 Pt signed out to Dr. Fernandes, night team. Pending trop x 2. *DC/Admit/Observation/Transfer Diagnosis at time of Disposition: Chest pain, Hyperkalemia, Shortness of breath - Discharge Dispostion Disposition: HOME Condition at time of disposition: Stable - Prescriptions Prescriptions: Guaifenesin [Robitussin] 100 mg PO Q8H #1 bottle - Referrals Referrals: Loren Lutz MD [Primary Care Provider] - Pramod Mata MD [Staff Physician] - - Patient Instructions Printed Discharge Instructions: DI for Shortness of Breath Additional Instructions: You were seen in the ER for shortness of breath and chest pressure. We did lab work on your blood and urine, an electrocardiogram, and a chest x-ray, and we did not find any concerning abnormalities other than slightly high potassium, and we gave you a medication in the ER for this. After our assessment, we do not believe you are having a medical emergency at this time, and we believe you are safe to go home. Please go to your dialysis appointment as scheduled tomorrow. Please follow up with your regular PCP doctor in 1-3 days. Call their clinic as soon as possible, tell them you were seen in the ER, and tell them you need an appointment. We are also giving you referral information for a customer sales distributor in case you need a new one. If you have any new or worsening symptoms, especially worsening chest pain, jaw pain, shoulder/arm pain, shortness of breath, sweats, nausea, loss of consciousness, palpitations, or other symptoms, please come back to the ER at any time (24 hours a day). If you are having severe or life threatening symptoms, or symptoms that make it unsafe to drive or have someone drive you, please call 911. Print Language: KAZAKH - Post Discharge Activity
--- NOTE | 2017-07-31 18:58 | PDOC ---
Attending Attestation - Resident Resident Name: Pramod Richardson - ED Attending Attestation I have performed the following: I have examined & evaluated the patient, The case was reviewed & discussed with the resident, I agree w/resident's findings & plan, Exceptions are as noted - HPI HPI: 07/31/17 18:52 The patient is a 70 year old female with significant history of hypertension, hyperlipidemia, ESRD on HD TuThSa who presents to the ED complaining of transient episode of chest pain and shortness of breath. Pt states that she was at home when she suddenly felt a tightness in her chest accompanied by shortness of breath. The episode lasted about 15 minutes before resolving on its own. Pt states that she feels back to baseline at this time. Denies any complaints. Denies leg swelling. Denies F/C. Denies cough. Pt does endorse sore throat. - Physicial Exam PE: 07/31/17 18:55 "GENERAL: Awake, alert, and fully oriented, in no acute distress. HEAD: No signs of trauma EYES: PERRLA, EOMI, sclera anicteric, conjunctiva clear ENT: + erythema to posterior oropharynx, Auricles normal inspection, hearing grossly normal, nares patent. Moist mucosa NECK: Nontender, no stepoffs, Normal ROM, supple, no lymphadenopathy, JVD, or masses LUNGS: Breath sounds equal, clear to auscultation bilaterally. No wheezes, and no crackles HEART: Regular rate and rhythm, normal S1 and S2, no murmurs, rubs or gallops ABDOMEN: Soft, nontender, normoactive bowel sounds. No guarding, no rebound. No masses EXTREMITIES: Normal range of motion, no edema. No clubbing or cyanosis. No cords, erythema, or tenderness NEUROLOGICAL: Cranial nerves II through XII intact. 5/5 strength and sensation in all extremities, Normal speech, normal gait, normal cerebellar function SKIN: Warm, Dry, normal turgor, no rashes or lesions noted. " - Medical Decision Making 07/31/17 18:56 66 F with transient episode of chest pain and shortness of breath. EKG is nonischemic, making ACS unlikely. HEART score if trop negative is 3. Pt with no clinical signs of DVT. No pleuritic chest pain to suggest PE. Vitals wnl. Pt's symptoms may be anxiety related, or possibly 2/2 viral pharyngitis as pt has mildly erythematous oropharynx on exam. - Labs, serial trops - CXR - Reassess - Recheck BP (HTN on arrival) Pt signed out to oncoming team at 7PM, pending labs, serial troponins, and re- evaluation of clinical exam and vitals Heart Score/ECG Review - History History: Slightly suspicious - Electrocardiogram EKG: Normal - Age Age: 45-65 - Risk Factors Risk Factors Heart Score: Yes Hx Hypercholesterolemia, Yes Hx Hypertension, Yes Hx Diabetes Based on the list above the patient has:: >/=3 risk factors or Hx atherosclerotic disease - Troponin Troponin: </= normal limit - Score Heart Score - Total: 3 - ECG Impressions Comment:: 07/31/17 18:58 NSR, no JAMI/STDs, no TWIs, axis wnl, intervals wnl, rate 66
[2017-07-31 19:05] LABS: BASO % 2.4 % (0-2.0); EOS % 22.3 % (0-4.5); HEMATOCRIT 37.4 % (32.4-45.2); LYMPH % 13.1 % (8-40); MCH 29.9 pg (25.7-33.7); MEAN CELL VOLUME 93.5 fl (80-96); MEAN PLT VOLUME 9.1 fl (7.5-11.1); MONO % 8.2 % (3.8-10.2); PLATELET COUNT 197 K/MM3 (134-434); RDW 15.2 % (11.6-15.6); WHITE BLOOD COUNT 6.9 K/mm3 (4.0-10.0)
[2017-07-31 19:26] LABS: ALBUMIN 3.5 g/dl (3.4-5.0); ANION GAP 8 (8-16); BILIRUBIN,TOTAL 0.5 mg/dL (0.2-1.0); BLOOD UREA NITROGEN 32 mg/dL (7-18); CALCIUM 7.4 mg/dL (8.5-10.1); CHLORIDE 101 mmol/L (98-107); CO2 23 mmol/L (21-32); GLUCOSE,RANDOM 197 mg/dL (74-106); SGPT/ALT 25 U/L (12-78); SODIUM 132 mmol/L (136-145); TOT PROT 8.2 g/dl (6.4-8.2)
[2017-07-31 19:32] LABS: ALK PHOS 75 U/L (45-117)
--- NOTE | 2017-07-31 19:42 | PDOC ---
*Physical Exam - Vital Signs Last Vital Signs Temp Pulse Resp BP Pulse Ox 97.4 F L 69 18 175/72 100 07/31/17 16:35 07/31/17 16:35 07/31/17 16:35 07/31/17 16:35 07/31/17 16:35 07/31/17 19:39 Care endorsed to me by Dr. Richardson at the end of his shift. Patient is a 66 YOF with h/o ESRD (HD T//Mon), HTN, HLD, DM, COPD who p/w acute onset CP and SOB this afternoon while walking around at home, now resolved and asymptomatic. No n /v or diaphoresis during the episode. EKG NSR rate 64 nl axis, QTc 486, no ischemic changes. Pending first set labs, will calculate HEART score when first troponin results (it will be at least 4), will repeat troponins at 4 hours. Heart Score/ECG Review - History History: Slightly suspicious - Electrocardiogram EKG: Normal - Age Age: 45-65 - Risk Factors Risk Factors Heart Score: Yes Hx Hypercholesterolemia, Yes Hx Hypertension, Yes Hx Diabetes Based on the list above the patient has:: >/=3 risk factors or Hx atherosclerotic disease - Troponin Troponin: </= normal limit - Score Heart Score - Total: 3 #1 NSR rate 64 nl axis, QTc 486, no ischemic changes. ED Treatment Course - LABORATORY CBC & Chemistry Diagram: 07/31/17 18:28 07/31/17 18:28 - ADDITIONAL ORDERS Additional order review: 07/31/17 18:28 RBC 4.00 MCV 93.5 MCHC 32.0 RDW 15.2 MPV 9.1 Neutrophils % 54.0 D Lymphocytes % 13.1 D Monocytes % 8.2 Eosinophils % 22.3 H* D Basophils % 2.4 H Medical Decision Making - Medical Decision Making 07/31/17 22:13 Repeat troponin is negative as well as initial. HEART score: 3 Repeat VS: Reassessment: Patient feels well, normal heart and lung exams, normal abdominal exam, wants to go home. DISCHARGE Repeat cardiac enzymes are negative. No new abnormal rhythms have been observed on the rn cardiac rehab. On last reassessment VS are stable, patients pain is resolved, and exam is benign. The patients HEART score indicates they are low risk and do not require admission currently. The patient is appropriate for discharge with close outpatient follow up. They are comfortable with this plan and will follow up with their PCP in 1-3 days. Referral info given for front services agent in case patient needs one. Return precautions are discussed and they will come back to the ER if necessary. *DC/Admit/Observation/Transfer Diagnosis at time of Disposition: Hyperkalemia, Shortness of breath Chest pain Qualifiers: Chest pain type: unspecified Qualified Code(s): R07.9 - Chest pain, unspecified - Discharge Dispostion Disposition: HOME Condition at time of disposition: Stable Decision to Admit order: No - Prescriptions Prescriptions: Guaifenesin [Robitussin] 100 mg PO Q8H #1 bottle - Referrals Referrals: Loren Lutz MD [Primary Care Provider] - Pramod Mata MD [Staff Physician] - - Patient Instructions Printed Discharge Instructions: DI for Shortness of Breath Additional Instructions: You were seen in the ER for shortness of breath and chest pressure. We did lab work on your blood and urine, an electrocardiogram, and a chest x-ray, and we did not find any concerning abnormalities other than slightly high potassium, and we gave you a medication in the ER for this. After our assessment, we do not believe you are having a medical emergency at this time, and we believe you are safe to go home. Please go to your dialysis appointment as scheduled tomorrow. Please follow up with your regular PCP doctor in 1-3 days. Call their clinic as soon as possible, tell them you were seen in the ER, and tell them you need an appointment. We are also giving you referral information for a front services agent in case you need a new one. If you have any new or worsening symptoms, especially worsening chest pain, jaw pain, shoulder/arm pain, shortness of breath, sweats, nausea, loss of consciousness, palpitations, or other symptoms, please come back to the ER at any time (24 hours a day). If you are having severe or life threatening symptoms, or symptoms that make it unsafe to drive or have someone drive you, please call 911. Print Language: NEPALESE - Post Discharge Activity
[2017-07-31 19:56] LABS: CREATININE 8.1 mg/dL (0.55-1.02); POTASSIUM 6.3 mmol/L (3.5-5.1)
[2017-07-31 19:57] LABS: SGOT/AST 23 U/L (15-37)
[2017-07-31] MEDS ORDERED: SODIUM POLYSTYRENE SULFONATE 15 GM/60 ML BOTTLE PO ONE (22:15)
[2017-07-31] MEDS ORDERED: SODIUM POLYSTYRENE SULFONATE 15 GM/60 ML BOTTLE ONE (22:34)
--- NOTE | 2017-08-01 11:55 | EKG ---
Test Reason : Blood Pressure : / mmHG Vent. Rate : 064 BPM Atrial Rate : 064 BPM P-R Int : 208 ms QRS Dur : 094 ms QT Int : 472 ms P-R-T Axes : 036 026 066 degrees QTc Int : 486 ms NORMAL SINUS RHYTHM NORMAL ECG WHEN COMPARED WITH ECG OF 22-JUN-2017 03:35, NON-SPECIFIC CHANGE IN ST SEGMENT IN LATERAL LEADS Confirmed by MD HELENA, MARLON ([id number]) on 08/01/2017 11:55:02 AM Referred By: Confirmed By:MARLON MALIK MD
== END 2017-07-31 22:40 | disposition home or self-care (01) ==
LOC: JER 16:31
DX: R07.89 Other chest pain (principal); E87.5 Hyperkalemia; I12.0 Hypertensive chronic kidney disease with stage 5 chronic kidney disease or end stage renal disease; E11.22 Type 2 diabetes mellitus with diabetic chronic kidney disease; N18.6 End stage renal disease; N17.8 Other acute kidney failure; Z99.2 Dependence on renal dialysis; Z79.4 Long term (current) use of insulin; D64.9 Anemia, unspecified; K21.9 Gastro-esophageal reflux disease without esophagitis; Z86.69 Personal history of other diseases of the nervous system and sense organs
CPT/HCPCS: 36415; 71045-TC-FY; 80053; 82550; 83880; 84484; 85025; 93005; 93010; 99284-25

== ENCOUNTER 2017-10-27 22:43 | Emergency (ER) | payer OTHER ==
[2017-10-27 22:55] VITALS: BP 140/57; PULSE 55; TEMP 97.1; BMI 26.4
--- NOTE | 2017-10-28 | PDOC ---
History of Present Illness - General Chief Complaint: Chest Pain Stated Complaint: CHEST PAIN Time Seen by Provider: 10/27/17 23:44 - History of Present Illness Initial Comments: 10/28/17 00:00 67F w/ pmhx of ESRD (/Mon/Mon, last dialysis on earlier today), CVA, HLD, hypocalcemia, DM, 2x failed renal transplants (2006, 2016), multiple admissions for AMS/weakness presents to the hospital for generalized weakness. [place] alsostates that she feels a weight on her chest but denies difficulty breathing , as well as muscle cramps. Had multipl visits in this ER for similar symptoms but she says she never fell that weak. 10/28/17 00:16 Past History - Past Medical History Allergies/Adverse Reactions: Allergies Allergy/AdvReac Type Severity Reaction Status Date / Time codeine Allergy Verified 10/10/17 06:28 promethazine HCl Allergy Verified 10/10/17 06:28 [From Phenergan] Home Medications: Ambulatory Orders Atorvastatin Ca [Lipitor] 20 mg PO HS 11/12/15 Clopidogrel Bisulfate [Plavix -] 75 mg PO DAILY tablet 11/03/16 Amlodipine Besylate [Norvasc -] 10 mg PO HS 05/31/17 Calcium Acetate 667 mg PO TID 05/31/17 Donepezil HCl [Aricept] 10 mg PO HS 05/31/17 Insulin Degludec [Tresiba Flextouch U-100] 10 units SQ AM 05/31/17 Insulin Lispro [Humalog] 0 unit SCJ PRN PRN 05/31/17 Memantine HCl 5 mg PO DAILY 05/31/17 Metoprolol Succinate [Toprol XL -] 25 mg PO BID #60 tab.sr.24h 10/11/17 Anemia: Yes Asthma: No Cancer: No Cardiac Disorders: Yes (angina) CVA: Yes (L sided weakness) COPD: No CHF: No DVT: No Dementia: No (AMS) Diabetes: Yes Dialysis: Yes (FISTULA L UPPER ARM, KIDNEY TRANSPLANT) GI Disorders: Yes (GERD) Disorders: Yes (ESRD, HD) HTN: Yes Hypercholesterolemia: Yes Liver Disease: No Seizures: Yes Thyroid Disease: No - Surgical History Abdominal Surgery: Yes Appendectomy: Yes Neurologic Surgery: No - Immunization History Immunization Up to Date: Yes - Suicide/Smoking/Psychosocial Hx Smoking Status: No Smoking History: Never smoked Have you smoked in the past 12 months: No Number of Cigarettes Smoked Daily: 0 Information on smoking cessation initiated: No Hx Alcohol Use: No Drug/Substance Use Hx: No Substance Use Type: None Hx Substance Use Treatment: No Review of Systems - Review of Systems Constitutional: Yes: Malaise, Weakness HEENTM: No: Symptoms Reported Respiratory: Yes: See HPI Cardiac (ROS): No: Symptoms Reported ABD/GI: No: Symptoms Reported : No: Symptoms Reported Musculoskeletal: Yes: Muscle Weakness Integumentary: No: Symptoms Reported Neurological: No: Symptoms reported All Other Systems: Reviewed and Negative *Physical Exam - Vital Signs Last Vital Signs Temp Pulse Resp BP Pulse Ox 97.1 F L 55 L 20 140/57 100 10/27/17 22:53 10/27/17 22:53 10/27/17 22:53 10/27/17 22:53 10/27/17 22:53 - Physical Exam General Appearance: Yes: Appropriately Dressed, Moderate Distress, Thin HEENT: positive: EOMI, NORAH, Scleral Icterus (R), Scleral Icterus (L) Respiratory/Chest: positive: Lungs Clear, Normal Breath Sounds. negative: Chest Tender, Respiratory Distress Cardiovascular: positive: Regular Rhythm, S1, S2, Bradycardia Gastrointestinal/Abdominal: positive: Normal Bowel Sounds, Flat, Soft. negative : Tender Musculoskeletal: positive: Normal Inspection. negative: CVA Tenderness Extremity: positive: Normal Capillary Refill, Normal Inspection, Normal Range of Motion Integumentary: positive: Normal Color, Dry, Warm, Jaundice Neurologic: positive: Fully Oriented, Alert ED Treatment Course - LABORATORY CBC & Chemistry Diagram: 10/28/17 00:30 10/28/17 00:30 Medical Decision Making - Medical Decision Making 10/28/17 00:23 Will check basic labs, ekg and cxr *DC/Admit/Observation/Transfer Diagnosis at time of Disposition: Fatigue - Discharge Dispostion Disposition: HOME Condition at time of disposition: Improved Decision to Admit order: No - Referrals Referrals: Loren Lutz MD [Primary Care Provider] - - Patient Instructions Printed Discharge Instructions: DI for Atypical Chest Pain Additional Instructions: Get to your dialysis appointment today. Come back to the ER for any new worsening or concerning symptom. - Post Discharge Activity
[2017-10-28 00:57] LABS: EOS % 13.4 % (0-4.5); LYMPH % 13.5 % (8-40); MCH 30.6 pg (25.7-33.7); MCHC 32.4 g/dl (32.0-36.0); MEAN CELL VOLUME 94.6 fl (80-96); MEAN PLT VOLUME 8.8 fl (7.5-11.1); MONO % 9.3 % (3.8-10.2); NEUT % 60.8 % (42.8-82.8); PLATELET COUNT 180 K/MM3 (134-434); RBC 3.91 M/mm3 (3.60-5.2); RDW 15.7 % (11.6-15.6); WHITE BLOOD COUNT 6.8 K/mm3 (4.0-10.0)
[2017-10-28 01:08] LABS: ALBUMIN 3.8 g/dl (3.4-5.0); ANION GAP 10 (8-16); BILIRUBIN,TOTAL 0.5 mg/dL (0.2-1.0); BLOOD UREA NITROGEN 35 mg/dL (7-18); CALCIUM 8.1 mg/dL (8.5-10.1); CHLORIDE 100 mmol/L (98-107); CO2 26 mmol/L (21-32); CREATININE 7.4 mg/dL (0.55-1.02); GLUCOSE,RANDOM 199 mg/dL (74-106); SGPT/ALT 43 U/L (12-78); SODIUM 136 mmol/L (136-145); TOT PROT 8.6 g/dl (6.4-8.2)
[2017-10-28 01:10] LABS: ALK PHOS 77 U/L (45-117)
[2017-10-28 01:16] LABS: POTASSIUM 5.8 mmol/L (3.5-5.1); SGOT/AST 45 U/L (15-37)
--- NOTE | 2017-10-28 05:10 | PDOC ---
Attending Attestation - HPI HPI: 10/28/17 05:12 The patient is a 67 year old male with a significant PMH of end stage renal failure who presents to the emergency department with chest pain since earlier today. The patient states that he had his dialysis treatment today. He subsequently began to experience an episode of weakness and chest pain. He describes it as something was pressing on his chest. The patient denies any other symptoms. He denies any shortness of breath, headache and dizziness. He denies any fever, chills, nausea, vomit, diarrhea , constipation or urinary symptoms. The patient denies any other complaints. PCP: Dr. Lutz Documentation prepared by Yifan Lazcano, acting as biomedical specialist for Laxmi Amaya MD. - Physicial Exam PE: 10/28/17 05:12 Refer to resident note <Yifan Lazcano - Last Filed: 10/28/17 05:12> - Resident Resident Name: Vu Valentin - ED Attending Attestation I have performed the following: I have examined & evaluated the patient, The case was reviewed & discussed with the resident, I agree w/resident's findings & plan - Medical Decision Making 10/28/17 05:15 Pt has two normal cardiac enzymes and she is feeling improved. She will be discharged, as she is stable, and as she has dialysis at 5:30AM today at her outpatient dialysis. <Laxmi Amaya - Last Filed: 10/28/17 05:16>
--- NOTE | 2017-10-29 08:54 | EKG ---
Test Reason : Blood Pressure : / mmHG Vent. Rate : 055 BPM Atrial Rate : 055 BPM P-R Int : 212 ms QRS Dur : 102 ms QT Int : 538 ms P-R-T Axes : 070 031 077 degrees QTc Int : 514 ms SINUS BRADYCARDIA WITH 1ST DEGREE A-V BLOCK PROLONGED QT ABNORMAL ECG WHEN COMPARED WITH ECG OF 10-OCT-2017 15:29, MD INTERVAL HAS INCREASED NONSPECIFIC T WAVE ABNORMALITY NO LONGER EVIDENT IN INFERIOR LEADS NONSPECIFIC T WAVE ABNORMALITY, IMPROVED IN LATERAL LEADS Confirmed by CARLI JIMENEZ MD ([id number]) on 10/29/2017 8:53:43 AM Referred By: Confirmed By:CARLI JIMENEZ MD
== END 2017-10-28 05:20 | disposition home or self-care (01) ==
LOC: JER 22:43
DX: R53.83 Other fatigue (principal); E78.00 Pure hypercholesterolemia, unspecified; R56.9 Unspecified convulsions; E11.22 Type 2 diabetes mellitus with diabetic chronic kidney disease; I12.0 Hypertensive chronic kidney disease with stage 5 chronic kidney disease or end stage renal disease; N18.6 End stage renal disease; Z79.4 Long term (current) use of insulin
CPT/HCPCS: 36415; 71045-TC-FY; 80053; 84100; 84484; 85025; 93005; 93010; 99282-25

== ENCOUNTER 2017-10-31 05:33 | Inpatient (IN) | payer OTHER ==
[2017-10-31 05:56] VITALS: BMI 26.6
--- NOTE | 2017-10-31 06:28 | PDOC ---
History of Present Illness - General Chief Complaint: Chest Pain Stated Complaint: CHEST PAIN Time Seen by Provider: 10/31/17 06:28 - History of Present Illness Initial Comments: 67 year old female with PMH of ESRD (/Mon 2 failed renal transplants ), CVA (on plavix), HLD, hypocalcemia, and DM presenting with chest pressure since waking up this AM. She was on her way to dialysis this morning and felt worsening chest pressure with difficulty breathing so she had the van drop her off in the ED. Describes the pressure as non-radiating, central, non-pleuritic, non-exertional, and not co-presenting with nausea, diaphoresis or other symptoms. Denies fevers, chills, nausea, vomiting, diarrhea, constipation, headache, or other symptoms. 10/31/17 06:49 Past History - Past Medical History Allergies/Adverse Reactions: Allergies Allergy/AdvReac Type Severity Reaction Status Date / Time codeine Allergy Verified 10/31/17 05:56 promethazine HCl Allergy Verified 10/31/17 05:56 [From Phenergan] Home Medications: Ambulatory Orders Atorvastatin Ca [Lipitor] 20 mg PO HS 11/12/15 Clopidogrel Bisulfate [Plavix -] 75 mg PO DAILY tablet 11/03/16 Amlodipine Besylate [Norvasc -] 10 mg PO HS 05/31/17 Calcium Acetate 667 mg PO TID 05/31/17 Donepezil HCl [Aricept] 10 mg PO HS 05/31/17 Insulin Degludec [Tresiba Flextouch U-100] 10 units SQ AM 05/31/17 Insulin Lispro [Humalog] 0 unit SCJ PRN PRN 05/31/17 Memantine HCl 5 mg PO DAILY 05/31/17 Metoprolol Succinate [Toprol XL -] 25 mg PO BID #60 tab.sr.24h 10/11/17 Anemia: Yes Asthma: No Cancer: No Cardiac Disorders: Yes (angina) CVA: Yes (L sided weakness) COPD: No CHF: No DVT: No Dementia: Yes (AMS) Diabetes: Yes Dialysis: Yes () GI Disorders: Yes (GERD) Disorders: No HTN: Yes Hypercholesterolemia: Yes Liver Disease: No Seizures: Yes Thyroid Disease: No - Surgical History Abdominal Surgery: Yes Appendectomy: Yes Neurologic Surgery: No - Immunization History Immunization Up to Date: Yes - Suicide/Smoking/Psychosocial Hx Smoking Status: No Smoking History: Never smoked Have you smoked in the past 12 months: No Number of Cigarettes Smoked Daily: 0 Information on smoking cessation initiated: No Hx Alcohol Use: No Drug/Substance Use Hx: No Substance Use Type: None Hx Substance Use Treatment: No Review of Systems - Review of Systems Constitutional: No: Chills, Diaphoresis, Fever HEENTM: No: Blurred Vision, Tearing Respiratory: Yes: Shortness of Breath. No: Cough, Orthopnea, Wheezing Cardiac (ROS): Yes: Chest Tightness. No: Edema, Lightheadedness, Palpitations, Syncope ABD/GI: No: Constipated, Diarrhea, Nausea, Vomiting : No: Flank Pain, Hematuria, Incontinence Musculoskeletal: Yes: Back Pain. No: Joint Pain, Joint Swelling *Physical Exam - Vital Signs Last Vital Signs Temp Pulse Resp BP Pulse Ox 98.7 F 63 20 182/81 100 10/31/17 05:54 10/31/17 05:54 10/31/17 05:54 10/31/17 05:54 10/31/17 06:17 - Physical Exam General Appearance: Yes: Nourished, Appropriately Dressed. No: Apparent Distress HEENT: positive: EOMI, NORAH, Normal ENT Inspection, Normal Voice Neck: positive: Trachea midline, Normal Thyroid, Supple. negative: Tender, Rigid Respiratory/Chest: negative: Chest Tender, Lungs Clear, Normal Breath Sounds ( Bilateral Lower lung field faint crackles), Respiratory Distress, Accessory Muscle Use Cardiovascular: positive: Regular Rate. negative: Regular Rhythm (Vistula bruit superimposed on top of heart sounds) Gastrointestinal/Abdominal: positive: Normal Bowel Sounds, Flat, Soft. negative : Tender Lymphatic: negative: Adenopathy, Tenderness Musculoskeletal: positive: Normal Inspection (With AVF in left bicep). negative : CVA Tenderness Extremity: positive: Normal Capillary Refill, Normal Inspection (AVF per above) , Normal Range of Motion. negative: Tender Integumentary: positive: Normal Color, Dry, Warm Neurologic: positive: Fully Oriented, Alert, Normal Mood/Affect, Normal Response , Motor Strength 5/5 Heart Score/ECG Review - History History: Moderately suspicious - Electrocardiogram EKG: Normal - Age Age: >/= 65 - Risk Factors Risk Factors Heart Score: Yes Hx Hypercholesterolemia, Yes Hx Hypertension, Yes Hx Diabetes Based on the list above the patient has:: >/=3 risk factors or Hx atherosclerotic disease ED Treatment Course - LABORATORY CBC & Chemistry Diagram: 10/31/17 06:30 10/31/17 06:30 Medical Decision Making - Medical Decision Making 67 year old ESRD T, Th, Sat and TIA (on Plavix) presenting with chest pressure concerning for ACS given history (heart score of 5 prior to Troponin return). Patient signed out to Dr. Lee pending labs and further workup. 10/31/17 07:05 *DC/Admit/Observation/Transfer Diagnosis at time of Disposition: Chest pressure - Discharge Dispostion Condition at time of disposition: Fair - Referrals Referrals: Loren Lutz MD [Primary Care Provider] - - Patient Instructions - Post Discharge Activity
--- NOTE | 2017-10-31 06:36 | PDOC ---
Attending Attestation - HPI HPI: 10/31/17 06:53 The patient is a 67 year old female with a significant PMH of end stage renal failure, ESRD (TUTHS[place]) who presents to the emergency department with chest pain since earlier today. The patient reports that she was on her way to dialysis this morning in a cab when she felt an onset of chest pain. . she reports some associated shortness of breath with her chest pain. the patient reports a similar episode like this in the past by which she was diagnosed with hypocalcemia. The patient denies any other symptoms. She denies any fever, chills, nausea, vomit, diarrhea, constipation or urinary symptoms. She denies any headache and dizziness. The patient denies any other complaints. Documentation prepared by Yifan Lazcano, acting as medical services manager for Sotero Fishman DO. <Yifan Lazcano - Last Filed: 10/31/17 06:53> - Resident Resident Name: Yolanda Lopez - ED Attending Attestation I have performed the following: I have examined & evaluated the patient, The case was reviewed & discussed with the resident, I agree w/resident's findings & plan, Exceptions are as noted - HPI HPI: 10/31/17 06:46 chest pressure - Physicial Exam PE: 10/31/17 19:29 *Physical Exam General Appearance: Yes: Appropriately Dressed. No: Apparent Distress, Intoxicated HEENT: positive: EOMI, NORAH, Normal ENT Inspection, Normal Voice, TMs Normal, Pharynx Normal. negative: Pale Conjunctivae, Photophobia, Scleral Icterus (R), Scleral Icterus (L) Neck: positive: Trachea midline, Normal Thyroid, Supple. negative: Tender, Rigid, Carotid bruit, Stridor, Lymphadenopathy (R), Lymphadenopathy (L), Thyromegaly Respiratory/Chest: positive: Lungs Clear, Normal Breath Sounds. negative: Chest Tender, Respiratory Distress, Accessory Muscle Use, Labored Respiration, RES, Crackles, Rales, Rhonchi, Stridor, Wheezing, Dullness Cardiovascular: positive: Regular Rhythm, Regular Rate, S1, S2. negative: Edema , JVD, Murmur, Bradycardia, Tachycardia Vascular Pulses: Dorsalis-Pedis (R): 2+, Doralis-Pedis (L): 2+ Gastrointestinal/Abdominal: positive: Normal Bowel Sounds, Flat, Soft. negative : Tender, Organomegaly, Pulsatile Mass, Increased Bowel Sounds, Decreased BS, Distended, Guarding, Rebound, Hernia, Hepatomegaly, Spleenomegaly Lymphatic: negative: Adenopathy, Tenderness Musculoskeletal: positive: Normal Inspection. negative: CVA Tenderness, Decreased Range of Motion Extremity: positive: Normal Capillary Refill, Normal Inspection, Normal Range of Motion, Pelvis Stable. negative: Tender, Pedal Edema, Swelling, Erythema Integumentary: positive: Normal Color, Dry, Warm. negative: Cyanotic, Erythema , Jaundice, Rash Neurologic: positive: lead carpenter II-XII NML intact, Fully Oriented, Alert, Normal Mood/ Affect, Motor Strength 5/5. negative: EOM Palsy, Facial Droop, Sensory Deficit - Medical Decision Making 10/31/17 19:30 Pt will be admitted for further evaluation and care <Sotero Fishman - Last Filed: 10/31/17 19:30>
[2017-10-31 06:56] LABS: BASO % 2.3 % (0-2.0); EOS % 15.8 % (0-4.5); HEMOGLOBIN 11.9 GM/dL (10.7-15.3); LYMPH % 13.5 % (8-40); MCH 31.1 pg (25.7-33.7); MEAN CELL VOLUME 94.4 fl (80-96); MEAN PLT VOLUME 8.6 fl (7.5-11.1); MONO % 6.1 % (3.8-10.2); NEUT % 62.3 % (42.8-82.8); PLATELET COUNT 198 K/MM3 (134-434); RBC 3.82 M/mm3 (3.60-5.2); RDW 15.6 % (11.6-15.6); WHITE BLOOD COUNT 7.7 K/mm3 (4.0-10.0)
--- NOTE | 2017-10-31 07:10 | PDOC ---
*Physical Exam - Vital Signs Last Vital Signs Temp Pulse Resp BP Pulse Ox 98.7 F 63 20 182/81 100 10/31/17 05:54 10/31/17 05:54 10/31/17 05:54 10/31/17 05:54 10/31/17 06:17 - Physical Exam General Appearance: Yes: Appropriately Dressed. No: Apparent Distress HEENT: positive: Normal Voice, Hearing Grossly Normal. negative: Pale Conjunctivae, Muffled/Hoarse voice, Rhinorrhea Neck: positive: Trachea midline, Supple Respiratory/Chest: positive: Lungs Clear, Normal Breath Sounds. negative: Chest Tender, Respiratory Distress, Accessory Muscle Use, Labored Respiration Extremity: positive: Normal Inspection. negative: Tender, Coldness, Cyanosis, Pedal Edema, Calf Tenderness Integumentary: positive: Normal Color, Dry, Warm Neurologic: positive: Fully Oriented, Alert, Normal Mood/Affect, Normal Response ED Treatment Course - LABORATORY CBC & Chemistry Diagram: 10/31/17 13:00 10/31/17 13:00 Medical Decision Making - Medical Decision Making Received sign out from Dr. Lopez. Reviewed nursing notes and prior visit records. In brief, pt is a 67 y/o female presenting with chest tightness in center of chest present since waking this morning. Worse with deep inspiration. No radiation to neck, arms, or abdomen. Endorses experiencing similar symptoms; was last evaluated here for similar on 10/28/17 (discharged home) and on 10/11/17 (found to be hypocalcemic). Health Occupations Teacher: Dr. Ziyad Robins Patients chemistry rebuild hyperkalemia; no EKG changes noted on 12 lead. Patient immediately placed on continuous cardiac monitoring. Calcium gluconate, insulin, dextrose, and bicarb were ordered. 10/31/17 09:[address] Robins to arrange dialysis. Awaiting call back. Covering attending for Dr. Robins returned page and agreed the patient needed emergent dialysis. Stated he would make arrangements. Pt admitted to [facility] on telemetry for hyperkalemia and ACS rule out. Pt first transported to inpatient dialysis. *DC/Admit/Observation/Transfer Diagnosis at time of Disposition: Chest pressure - Discharge Dispostion Condition at time of disposition: Fair Decision to Admit order: Yes - Referrals - Patient Instructions - Post Discharge Activity
[2017-10-31 07:25] LABS: INR 0.98 (0.83-1.09); PROTHROMBIN TIME (PATIENT) 11.1 SEC (9.7-13.0)
[2017-10-31 08:31] LABS: ALBUMIN 4.4 g/dl (3.4-5.0); ALK PHOS 91 U/L (45-117); ANION GAP 12 (8-16); BILIRUBIN,TOTAL 0.6 mg/dL (0.2-1.0); BLOOD UREA NITROGEN 43 mg/dL (7-18); CALCIUM 8.7 mg/dL (8.5-10.1); CHLORIDE 99 mmol/L (98-107); CO2 24 mmol/L (21-32); GLUCOSE,RANDOM 144 mg/dL (74-106); SGPT/ALT 48 U/L (12-78); SODIUM 135 mmol/L (136-145); TOT PROT 9.6 g/dl (6.4-8.2)
[2017-10-31 08:43] LABS: CREATININE 8.9 mg/dL (0.55-1.02); POTASSIUM 7.2 mmol/L (3.5-5.1); SGOT/AST 41 U/L (15-37)
[2017-10-31] MEDS ORDERED: CALCIUM GLUCONATE 10% - 1,000 MG/10 ML VIAL IVPUSH ONE (08:57)
[2017-10-31] MEDS ORDERED: SODIUM BICARBONATE 4.2% 5 MEQ/10 ML DISP.SYRIN IVPUSH ONE (09:04)
[2017-10-31] MEDS ORDERED: DEXTROSE 50%-WATER - 25 GM/50 ML VIAL IVPUSH ONE (09:04)
[2017-10-31] MEDS ORDERED: INSULIN REGULAR HUMAN 100 UNITS/ML *VIAL IVPUSH ONE (09:04)
[2017-10-31] MEDS ORDERED: SODIUM CHLORIDE 250 ML IV PRN ×2 (09:31→09:33)
[2017-10-31] MEDS ORDERED: HEPARIN NA (PORCINE) 5,000 UNITS/ML 1ML VIAL IVPUSH ONE (09:33)
--- NOTE | 2017-10-31 09:58 | HP ---
CHIEF COMPLAINT: chest pressure , sweating , muscle cramps PCP:Dr Melany Lutz HISTORY OF PRESENT ILLNESS: 67 year old femlae with pmhx of DM, HTN, HLD, CVA, ESRD (, mon, Mon) , failed kidney transplant x2 who presented to the hospital today due due to med sternal chest pressure , diaphoresis and muscle spasm in her LE . The chest pressure is 10/10 , started today at 4.30 AM associated with diaphoresis , local non radiating, comes and goes , last 15 min ,she denies any orthopnea, dyspnea on exertion , she had similar pain in the past , she denies any heart racing , couph , recent cold or sick contact. denies any fever, chills, headache, blurry vision , cough, abdominal pain , V/D/ C, urinary symptoms. at my present pt denies any chest pain , but reports nausea. Her flooring mechanic is Dr Satish lion [phone] , was supposed to have stress test for possible kidney transplant. ER course was notable for: (1)EKG prolonged QTC 531 (2)CBC, CMP (3)CXR Recent Travel:denies PAST MEDICAL HISTORY: ESRD (/Mon/Mon, last dialysis Mon), CVA, HLD, hypocalcemia, DM, 2x failed renal transplants (2006, 2016), multiple admissions for AMS/weakness PAST SURGICAL HISTORY: 2x R renal transplant, L fistula placement, tubal ligation , appendics rupture Social History: Smoking:denies Alcohol:denies Drugs: denies Family History:DM, HTN Allergies codeine Allergy (Verified 10/31/17 05:56) promethazine HCl [From Phenergan] Allergy (Verified 10/31/17 05:56) ANAPHYLAXIS REVIEW OF SYSTEMS CONSTITUTIONAL: diaphoresis, Absent: fever, chills, generalized weakness, malaise, HEENT: left ear difficulty hearing with tinnitus Absent: rhinorrhea, nasal congestion, throat pain, throat swelling, difficulty swallowing, mouth swelling, ear pain, eye pain, visual changes CARDIOVASCULAR: chest pain, peripheral edema Absent: palpitations, irregular heart rate, lightheadedness, RESPIRATORY: Absent: cough, shortness of breath, dyspnea with exertion, orthopnea, wheezing, stridor, hemoptysis GASTROINTESTINAL: nausea, diarrhea, Absent: abdominal pain, abdominal distension, vomiting, constipation, melena, hematochezia GENITOURINARY: Absent: dysuria, frequency, urgency, hesitancy, hematuria, flank pain, genital pain MUSCULOSKELETAL: Absent: myalgia, arthralgia, joint swelling, back pain, neck pain SKIN: Absent: rash, itching, pallor HEMATOLOGIC/IMMUNOLOGIC: Absent: easy bleeding, easy bruising, lymphadenopathy, frequent infections ENDOCRINE: Absent: unexplained weight gain, unexplained weight loss, heat intolerance, cold intolerance NEUROLOGIC: Absent: headache, focal weakness or paresthesias, dizziness, unsteady gait, seizure, mental status changes, bladder or bowel incontinence PSYCHIATRIC: Absent: anxiety, depression, suicidal or homicidal ideation, hallucinations. PHYSICAL EXAMINATION Vital Signs - 24 hr 10/31/17 10/31/17 05:54 06:17 Temperature 98.7 F Pulse Rate 63 Respiratory 20 Rate Blood Pressure 182/81 O2 Sat by Pulse 100 100 Oximetry (%) GENERAL: AAOx3 in NAD HEAD: NC/AT EYES: EOMI, Conjunctiva clear, sclera anicteric ENT: moist mucous membrane NECK: Supple, no JVD LUNGS: CTA B/L, minimal basilar crackles no wheezing no accessory muscle use. HEART: RRR, NSR, normal s1, s2,2/6 systolic murmur LUSB ,no R/G ABDOMEN: Soft, ND, NT, +BS 4 Q, no CVA Tenderness LOWER EXTREMITIES: no edema, +2DP pulse, NEUROLOGICAL: No focal deficit. Normal speech. gait not observed. PSYCHIATRIC: Cooperative. Good eye contact. Appropriate mood and affect. SKIN: Warm, dry, Laboratory Results - last 24 hr 10/31/17 10/31/17 10/31/17 06:30 06:30 06:30 WBC 7.7 RBC 3.82 Hgb 11.9 Hct 36.0 MCV 94.4 MCH 31.1 MCHC 33.0 RDW 15.6 Plt Count 198 MPV 8.6 Absolute Neuts (auto) 4.8 Neutrophils % 62.3 Lymphocytes % 13.5 Monocytes % 6.1 Eosinophils % 15.8 H Basophils % 2.3 H Nucleated RBC % 0 PT with INR 11.10 INR 0.98 Sodium Cancelled Potassium Cancelled Chloride Cancelled Carbon Dioxide Cancelled Anion Gap Cancelled BUN Cancelled Creatinine Cancelled Creat Clearance w eGFR Cancelled POC Glucometer Random Glucose Cancelled Calcium Cancelled Total Bilirubin Cancelled AST Cancelled ALT Cancelled Alkaline Phosphatase Cancelled Creatine Kinase Cancelled Troponin I Cancelled Total Protein Cancelled Albumin Cancelled 10/31/17 10/31/17 07:56 09:38 WBC RBC Hgb Hct MCV MCH MCHC RDW Plt Count MPV Absolute Neuts (auto) Neutrophils % Lymphocytes % Monocytes % Eosinophils % Basophils % Nucleated RBC % PT with INR INR Sodium 135 L Potassium 7.2 H* Chloride 99 Carbon Dioxide 24 Anion Gap 12 BUN 43 H Creatinine 8.9 H* Creat Clearance w eGFR 4.46 POC Glucometer [phone] Random Glucose 144 H Calcium 8.7 Total Bilirubin 0.6 AST 41 H ALT 48 Alkaline Phosphatase 91 D Creatine Kinase Troponin I < 0.02 Total Protein 9.6 H Albumin 4.4 CBC, BMP 10/31/17 06:30 10/31/17 07:56 Ambulatory Orders Atorvastatin Ca [Lipitor] 20 mg PO HS 11/12/15 Clopidogrel Bisulfate [Plavix -] 75 mg PO DAILY tablet 11/03/16 Amlodipine Besylate [Norvasc -] 10 mg PO HS 05/31/17 Calcium Acetate 667 mg PO TID 05/31/17 Donepezil HCl [Aricept] 10 mg PO HS 05/31/17 Insulin Degludec [Tresiba Flextouch U-100] 10 units SQ AM 05/31/17 Insulin Lispro [Humalog] 0 unit SCJ PRN PRN 05/31/17 Memantine HCl 5 mg PO DAILY 05/31/17 Metoprolol Succinate [Toprol XL -] 25 mg PO BID #60 tab.sr.24h 10/11/17 ECHO September 2017 : no significant changes compare to Mar 2017 , normal LV size and thickness , impaired LV relaxation , mild mitral thickening and regurgittaion , mild Aortic sclerosis , mild LA dilated. CXR 10/31/2017 mild congestive changes , fluids in the fissure, no atelectasis . ASSESSMENT/PLAN: 67 year old female with a history of ESRD (/Mon/Mon, last dialysis Sat), CVA, HLD, hypocalcemia, DM, 2x failed renal transplants (2006, 2016), multiple admissions for AMS/weakness presents to the hospital for weakness # chest pressure R/O ACS vs NSTEMI * started this AM with 10/10 pressure likey symptoms local non radiating assoiated with diaphoresis and nausea * EKG with no changes , trop I negative , will trend and repeat EKG * ASA * Cardiology consult Dr Herron * tele monitor * Last [facility] in september 2017 with no significnt changes * resume home meds Plavix, lipitor , # Hyperkalemia , Acute on chronic likey due to ESRD * K 7.2 this AM * EKG no T, wave changes but has chronic QTC prolongotion * HD today * repeat in AM * Gluconate ca and D50 with insulin was given in ED # HTN , uncontrolled * BP 182/81 * likley due to ESRD * for HD today * cont to monitor * resume home meds Norvasc 10 mg po daily and Toprol XL 25 mg PO BID #ESRD (/Mon/): * missed this morning's appointment due to chest pressure * Dr. Campoverde consult appreciated, for urgent dialysis this AM # Prolonged QTC * 531 this AM * Avoid meds that prolonged QTC , avoid zofran * monitor on tele #Diabetes Mellitus: * patient's sugars are controlled * patient is on 10U of insulin degludec, a long acting (42hr) insulin, conversion is 1:1 with levemir * will start 10U levemir in the morning tomorrow * add sliding scale insulin ACHS * BGMs ACHS * low NA diabetic, renal diet #Hyperlipidemia: stable * continue Lipitor 20mg po HS #Hypocalcemia: stable * calcium 8.7 * continue home Calcium Acetate 667mg PO TID #Dementia: stable * continue memantine, donezepil #FEN * no standing fluids * replete calcium with home CaAcetate * renal diet #Prophylaxis * heparin 5000 subq TID #Disposition * admit telemetry inpatient services Visit type - Emergency Visit Emergency Visit: Yes ED Registration Date: 10/31/17 Care time: The patient presented to the Emergency Department on the above date and was hospitalized for further evaluation of their emergent condition. - New Patient This patient is new to me today: Yes Date on this admission: 10/31/17 - Critical Care Critical Care patient: No Hospitalist Screening - Colonoscopy Questionnaire Colonoscopy Questionnaire: Colonoscopy Questionnaire - Patient: 50 - 75 years old and never had a screening colonoscopy: Unknown History of colon or rectal polyps, or CA: Unknown History of IBD, Crohn's disease or UC: Unknown History of abdominal radiation therapy as a child: Unknown - Relative: 1 with colon or rectal CA, or polyps at age 60 or younger: Unknown Colon or rectal CA diagnosed at age 45 or younger: Unknown Multiple relatives with colon or rectal CA: Unknown - Outcome: Screening Result: Negative Screen
[2017-10-31] MEDS ORDERED: CALCIUM GLUCONATE 10% - 1,000 MG/10 ML VIAL ONE (10:18)
--- NOTE | 2017-10-31 10:42 | EKG ---
Test Reason : Blood Pressure : / mmHG Vent. Rate : 061 BPM Atrial Rate : 061 BPM P-R Int : 186 ms QRS Dur : 100 ms QT Int : 528 ms P-R-T Axes : 038 026 069 degrees QTc Int : 531 ms NORMAL SINUS RHYTHM PROLONGED QT ABNORMAL ECG WHEN COMPARED WITH ECG OF 27-OCT-2017 22:54, NO SIGNIFICANT CHANGE WAS FOUND Confirmed by Deep Danielle MD ([id number]) on 10/31/2017 10:42:08 AM Referred By: Confirmed By:Deep Danielle MD
[2017-10-31] MEDS ORDERED: ASPIRIN 81 MG CHEWABLE TABLETS PO ONE (11:00)
[2017-10-31] MEDS ORDERED: METOCLOPRAMIDE HCL INJECTION 10 MG/2 ML VIAL IVPUSH ONE (11:38)
--- NOTE | 2017-10-31 12:49 | PN ---
Teaching Attending Note Name of Resident: Erich Crawford ATTENDING PHYSICIAN STATEMENT I saw and evaluated the patient. I reviewed the resident's note and discussed the case with the resident. I agree with the resident's findings and plan as documented with exceptions below. SUBJECTIVE: 67 yof with PMHx of ESRD (/Callie/Mon, last dialysis Sat), CVA, HLD, hypocalcemia , type 2 DM, HTN, 2x failed renal transplants (2006, 2016), multiple admissions for AMS/weakness, woke up this morning around 4:30 with sudden onset of substernal chest pressure, non exertional non radiating, with no clear exacerbating or relieving factors. Went for her HD but given her chest pain, was sent to the ED. While in ED, noted with K of 7.2, planned for emergent HD. Currently patient in HD, reports chest pressure resolved on its own after coming to ED. Denies active symptoms. Reports has chronic nausea and intermittent loose stools with no recent worsening. Was nauseous earlier with some clear vomitus. No fevers, chills, abdominal pain, dark or bloody stools, dyspnea, dizziness, arm or jaw pain or diaphoresis. Not very active at baseline but no prior c/o exertional chest pain or dyspnea. Reports had 2D echo 3 weeks ago with her pick pulling machine tender in [place] (?Dr. Covarrubias) and was planned for stress test for possible future renal transplant. 12 point ROS done, chronic decreased intake, neg except above. OBJECTIVE: Vital Signs Period Temp Pulse Resp BP Sys/Travis Pulse Ox Last 24 Hr 97.8 F-98.7 F 63-79 18-20 153-182/75-103 98-100 Intake & Output 10/28/17 10/29/17 10/30/17 10/31/17 23:59 23:59 23:59 23:59 Weight 155 lb GENERAL: Awake, alert, and fully oriented, in no acute distress. HEAD: Normal with no signs of trauma. EYES: Pupils equal, round and reactive to light, extraocular movements intact, sclera anicteric, conjunctiva clear. No lid lag. EARS, NOSE, THROAT: Ears normal, nares patent, oropharynx clear without exudates. Moist mucous membranes. NECK: soft, supple, no JVD LUNGS: Breath sounds equal, clear to auscultation bilaterally. No wheezes, and no crackles. No accessory muscle use. HEART: S1S2 regular ABDOMEN: Soft, nontender, not distended, normoactive bowel sounds, no guarding, no rebound, no masses. Obese MUSCULOSKELETAL: Normal range of motion at all joints. No bony deformities or tenderness. No CVA tenderness. UPPER EXTREMITIES: 2+ pulses, warm, well-perfused. No cyanosis. No clubbing. No peripheral edema. LOWER EXTREMITIES: 2+ pulses, warm, well-perfused. No calf tenderness. No peripheral edema. NEUROLOGICAL: Cranial nerves II-XII intact. Normal speech. gait deferred, facial symmetry, tongue midline, power 5/5 generalized, sensation intact to light touch PSYCHIATRIC: Cooperative. Good eye contact. Appropriate mood and affect. SKIN: Warm, dry, normal turgor, no rashes or lesions noted, normal capillary refill. Home Medications Medication Instructions Recorded Atorvastatin Ca [Lipitor] 20 mg PO HS 11/12/15 Clopidogrel Bisulfate [Plavix -] 75 mg PO DAILY tablet 11/03/16 Amlodipine Besylate [Norvasc -] 10 mg PO HS 05/31/17 Calcium Acetate 667 mg PO TID 05/31/17 Donepezil HCl [Aricept] 10 mg PO HS 05/31/17 Insulin Degludec [Tresiba 10 units SQ AM 05/31/17 Flextouch U-100] Insulin Lispro [Humalog] 0 unit SCJ PRN PRN 05/31/17 Memantine HCl 5 mg PO DAILY 05/31/17 Metoprolol Succinate [Toprol XL -] 25 mg PO BID #60 tab.sr.24h 10/11/17 Active Medications Amlodipine Besylate (Norvasc -) 10 mg PO HS [facility] Atorvastatin Calcium (Lipitor -) 20 mg PO HS [facility] Calcium Acetate (Phoslo -) 667 mg PO TIDCM [facility] Clopidogrel Bisulfate (Plavix -) 75 mg PO DAILY [facility] Donepezil HCl (Aricept -) 10 mg PO HS [facility] Heparin Sodium (Porcine) (Heparin -) 5,000 unit SQ TID [facility] Sodium Chloride (Normal Saline -) 250 mls @ 3,000 mls/hr IV PRN PRN PRN Reason: Hypotension during Dialysis Stop: 11/01/17 09:31 Sodium Chloride (Normal Saline -) 250 mls @ 3,000 mls/hr IV PRN PRN PRN Reason: Hypotension during Dialysis Stop: 11/01/17 09:33 Insulin Aspart (Novolog Vial Sliding Scale -) 1 vial SQ ACHS [facility]; Protocol Insulin Detemir (Levemir Vial) 10 units SQ AM [facility] Memantine (Namenda -) 5 mg PO DAILY [facility] Metoprolol Succinate (Toprol Xl -) 25 mg PO BID [facility] Laboratory Results - last 24 hr 10/31/17 10/31/17 10/31/17 06:30 06:30 06:30 WBC 7.7 RBC 3.82 Hgb 11.9 Hct 36.0 MCV 94.4 MCH 31.1 MCHC 33.0 RDW 15.6 Plt Count 198 MPV 8.6 Absolute Neuts (auto) 4.8 Neutrophils % 62.3 Lymphocytes % 13.5 Monocytes % 6.1 Eosinophils % 15.8 H Basophils % 2.3 H Nucleated RBC % 0 PT with INR 11.10 INR 0.98 Sodium Cancelled Potassium Cancelled Chloride Cancelled Carbon Dioxide Cancelled Anion Gap Cancelled BUN Cancelled Creatinine Cancelled Creat Clearance w eGFR Cancelled POC Glucometer Random Glucose Cancelled Calcium Cancelled Total Bilirubin Cancelled AST Cancelled ALT Cancelled Alkaline Phosphatase Cancelled Creatine Kinase Cancelled Troponin I Cancelled Total Protein Cancelled Albumin Cancelled 10/31/17 10/31/17 07:56 09:38 WBC RBC Hgb Hct MCV MCH MCHC RDW Plt Count MPV Absolute Neuts (auto) Neutrophils % Lymphocytes % Monocytes % Eosinophils % Basophils % Nucleated RBC % PT with INR INR Sodium 135 L Potassium 7.2 H* Chloride 99 Carbon Dioxide 24 Anion Gap 12 BUN 43 H Creatinine 8.9 H* Creat Clearance w eGFR 4.46 POC Glucometer [phone] Random Glucose 144 H Calcium 8.7 Total Bilirubin 0.6 AST 41 H ALT 48 Alkaline Phosphatase 91 D Creatine Kinase Troponin I < 0.02 Total Protein 9.6 H Albumin 4.4 EKG NSR, QTC 531 (prior prolonged QTc on EKG) CXR - mild congestive changes ASSESSMENT AND PLAN: 67 yof with ESRD (/Mon/Mon, last dialysis Sat), CVA, HLD, HTN, hypocalcemia, DM, 2x failed renal transplants (2006, 2016), multiple admissions for AMS/ weakness, admitted with chest pain and hyperkalemia -Hyperkalemia -Chest pain, from hyperkalemia, r/o ACS/underlying CAD -ESRD on HD -CVA -HTN -IDDM -Hypocalcemia -Failed renal transplant -Prolonged QTc PLan: For emergent HD current, monitor. Interval EKG, check Mg/Phos. Cardiology consult Dr. Tovar. Telemetry, cycle cardiac enzymes. Retrieve recent 2D echo results from outpatient pick pulling machine tender WIll likely need stress test once ACS ruled out, will follow up with cardiology. ISS, diabetic diet. Continue Plavix/statin/metoprolol/amlodipine. Add ASA. Check Lipid panel. Continue aricept/namenda DVTPPX with heparin Dispo pending resolution of medical issues and cardiac work up. Plan discussed with patient in detail, all questions answered. Patient relays understanding and in agreement. Total admit time spent 65 min.
[2017-10-31 13:32] LABS: BASO % 0.5 % (0-2.0); EOS % 8.4 % (0-4.5); HEMATOCRIT 34.8 % (32.4-45.2); HEMOGLOBIN 11.4 GM/dL (10.7-15.3); LYMPH % 11.1 % (8-40); MCH 30.5 pg (25.7-33.7); MCHC 32.8 g/dl (32.0-36.0); MEAN PLT VOLUME 8.4 fl (7.5-11.1); MONO % 5.1 % (3.8-10.2); NEUT % 74.9 % (42.8-82.8); PLATELET COUNT 185 K/MM3 (134-434); RBC 3.74 M/mm3 (3.60-5.2); RDW 15.9 % (11.6-15.6); WHITE BLOOD COUNT 5.6 K/mm3 (4.0-10.0)
[2017-10-31 14:21] LABS: INR 0.99 (0.83-1.09); PROTHROMBIN TIME (PATIENT) 11.2 SEC (9.7-13.0)
[2017-10-31 14:22] LABS: ALBUMIN 3.6 g/dl (3.4-5.0); ANION GAP 8 (8-16); BILIRUBIN,TOTAL 0.6 mg/dL (0.2-1.0); BLOOD UREA NITROGEN 16 mg/dL (7-18); CHLORIDE 105 mmol/L (98-107); CHOLESTEROL 98 mg/dL (50-200); CO2 31 mmol/L (21-32); CREATININE 4.2 mg/dL (0.55-1.02); GLUCOSE,RANDOM 170 mg/dL (74-106); POTASSIUM 3.5 mmol/L (3.5-5.1); SGOT/AST 26 U/L (15-37); SGPT/ALT 36 U/L (12-78); SODIUM 144 mmol/L (136-145); TOT PROT 7.9 g/dl (6.4-8.2); TRIGLYCERIDES 55 mg/dL (35-160)
[2017-10-31 14:24] LABS: ALK PHOS 73 U/L (45-117); HDL CHOLESTEROL 51 mg/dL (40-60); N-TERMINAL BNP 31146.94 pg/ml (5-125)
[2017-10-31] MEDS ORDERED: NAPH,MB-DB/K PH,MBDB POWDER PACKET PO ONE (14:45)
--- NOTE | 2017-10-31 16:42 | PN ---
Progress Note, Physician Chief Complaint: Well known to me from prior hospitalizations: 67 year old woman with a history of HTN, HLD,mild , Renal transplant 2006, ESRD on HD, CVAs/TIAs, multiple admissions for AMS. Today presented to ER with diffuse body cramps and sensation of central substernal chest pressure which lasted approximately 5 minutes associated with diaphoresis. She does walk around her home and denies chest pressure with exertion, but reports occasional episodes of chest pressure in the morning. She does not have CP at HD. Denies palpitations, syncope. Denies PND, orthopnea. - Current Medication List Current Medications: Active Medications Amlodipine Besylate (Norvasc -) 10 mg PO HS [facility] Aspirin (Asa -) 81 mg PO DAILY [facility] Atorvastatin Calcium (Lipitor -) 20 mg PO HS [facility] Calcium Acetate (Phoslo -) 667 mg PO TIDCM [facility] Clopidogrel Bisulfate (Plavix -) 75 mg PO DAILY [facility] Donepezil HCl (Aricept -) 10 mg PO HS [facility] Heparin Sodium (Porcine) (Heparin -) 5,000 unit SQ TID [facility] Sodium Chloride (Normal Saline -) 250 mls @ 3,000 mls/hr IV PRN PRN PRN Reason: Hypotension during Dialysis Stop: 11/01/17 09:31 Sodium Chloride (Normal Saline -) 250 mls @ 3,000 mls/hr IV PRN PRN PRN Reason: Hypotension during Dialysis Stop: 11/01/17 09:33 Insulin Aspart (Novolog Vial Sliding Scale -) 1 vial SQ ACHS [facility]; Protocol Insulin Detemir (Levemir Vial) 10 units SQ AM [facility] Memantine (Namenda -) 5 mg PO DAILY [facility] Metoprolol Succinate (Toprol Xl -) 25 mg PO BID [facility] - Objective Vital Signs: Vital Signs Temperature 97.8 F 10/31/17 11:05 Pulse Rate 69 10/31/17 15:15 Respiratory Rate 18 10/31/17 15:15 Blood Pressure 163/67 10/31/17 15:15 O2 Sat by Pulse Oximetry (%) 98 10/31/17 10:00 Constitutional: Yes: No Distress, Calm Eyes: Yes: Conjunctiva Clear, EOM Intact HENT: Yes: Normocephalic Cardiovascular: Yes: Regular Rate and Rhythm, Other (2/6 NIRAV rsb c/w mild .) Respiratory: Yes: CTA Bilaterally (no rales or wheezing.) Gastrointestinal: Yes: Soft (nontender.) Edema: No Neurological: Yes: Alert, Oriented ...Motor Strength: WNL Labs: CBC, BMP 10/31/17 13:00 10/31/17 13:00 INR, PTT INR 0.99 (0.83-1.09) 10/31/17 13:00 Laboratory Tests 10/10/17 10/10/17 10/10/17 06:25 14:00 18:00 WBC Hgb Plt Count Sodium Potassium BUN Creatinine Magnesium Alkaline Phosphatase Troponin I < 0.02 < 0.02 < 0.02 B-Natriuretic Peptide 10/11/17 10/11/17 10/31/17 06:00 06:00 07:56 WBC 5.9 Hgb 9.9 L Plt Count 168 Sodium 135 L Potassium 4.1 7.2 H* BUN 43 H Creatinine 8.9 H* Magnesium Alkaline Phosphatase 91 D Troponin I < 0.02 B-Natriuretic Peptide 10/31/17 10/31/17 13:00 13:00 WBC 5.6 Hgb 11.4 Plt Count 185 Sodium 144 Potassium 3.5 BUN 16 D Creatinine 4.2 H Magnesium 2.0 Alkaline Phosphatase 73 D Troponin I < 0.02 B-Natriuretic Peptide 01532.94 H - ....Imaging Chest X-ray: Image Reviewed EKG: Image Reviewed Problem List - Problems (1) ESRD (end stage renal disease) on dialysis Code(s): N18.6 - END STAGE RENAL DISEASE; Z99.2 - DEPENDENCE ON RENAL DIALYSIS (2) Chest pressure Code(s): R07.89 - OTHER CHEST PAIN (3) Diabetes mellitus Code(s): E11.9 - TYPE 2 DIABETES MELLITUS WITHOUT COMPLICATIONS Qualifiers: Diabetes mellitus type: type 1 Diabetes mellitus complication status: with unspecified complications Qualified Code(s): E10.8 - Type 1 diabetes mellitus with unspecified complications (4) Prolonged QT interval Code(s): R94.31 - ABNORMAL ELECTROCARDIOGRAM [ECG] [EKG] (5) Abnormal ECG Code(s): R94.31 - ABNORMAL ELECTROCARDIOGRAM [ECG] [EKG] (6) Cerebrovascular accident (CVA) Code(s): I63.9 - CEREBRAL INFARCTION, UNSPECIFIED Qualifiers: CVA mechanism: unspecified Qualified Code(s): I63.9 - Cerebral infarction, unspecified (7) HLD (hyperlipidemia) Code(s): E78.5 - HYPERLIPIDEMIA, UNSPECIFIED (8) Valvular heart disease Code(s): I38 - ENDOCARDITIS, VALVE UNSPECIFIED Assessment/Plan IMP: ESRD DM H/o CVAs Hyperkalemia prior to HD Prolonged QT Atypical chest pain REC: 1. Telemetry x 24 hours 2. Obtain 3rd set cardiac enzymes 3. Repeat echo, r/o pericardial disease occasionally seen in HD patients. 4. ASA 5. Plan for exercise nuclear stress in AM. Patient refuses vasodilator due to prior side effects
[2017-10-31] MEDS: INSULIN SLIDING SCALE (NOVOLOG) 1 VIAL SQ SCH ×2 (17:05→21:15)
[2017-10-31] MEDS: HEPARIN NA (PORCINE) 5,000 UNITS/ML 1ML VIAL SQ SCH ×2 (17:57→21:15)
[2017-10-31] MEDS: CALCIUM ACETATE 667 MG CAPSULE (FP) PO SCH ×2 (17:58)
[2017-10-31] MEDS: CLOPIDOGREL BISULFATE 75 MG TABLET (FP) PO SCH (17:59)
[2017-10-31] MEDS ORDERED: INSULIN (NOVOLOG) ASPART 100 UNITS/ML 10ML VIAL ONE (20:50)
[2017-10-31] MEDS: ATORVASTATIN CA 20 MG TABLET (FP) PO SCH (21:15)
[2017-10-31] MEDS: DONEPEZIL HCL 10 MG TABLET (FP) PO SCH (21:15)
[2017-10-31] MEDS: amLODIPine BESYLATE 10 MG TABLET (FP) PO SCH (21:15)
[2017-10-31] MEDS: metoPROLOL SUCCINATE 25 MG TAB.SR.24H (FP) PO SCH (21:16)
[2017-11-01] MEDS: HEPARIN NA (PORCINE) 5,000 UNITS/ML 1ML VIAL SQ SCH ×3 (06:08→21:13)
[2017-11-01] MEDS: INSULIN SLIDING SCALE (NOVOLOG) 1 VIAL SQ SCH ×4 (06:09→21:38)
[2017-11-01] MEDS ORDERED: INSULIN (LEVEMIR) 100 UNITS/ML UNITS SQ SCH (07:00)
--- NOTE | 2017-11-01 08:00 | PN ---
Teaching Attending Note Name of Resident: Ismael Diaz ATTENDING PHYSICIAN STATEMENT I saw and evaluated the patient. I reviewed the resident's note and discussed the case with the resident. I agree with the resident's findings and plan as documented with exceptions below. SUBJECTIVE: Patient seen and examined. No chest pain overnight. Awaiting stress imaging studies. No complaints otherwise. OBJECTIVE: Vital Signs Period Temp Pulse Resp BP Sys/Travis Pulse Ox Last 24 Hr 97.8 F-99.1 F 60-79 18-20 134-188/67-103 94-98 Intake & Output 10/29/17 10/30/17 10/31/17 11/01/17 23:59 23:59 23:59 23:59 Intake Total 320 0 Balance 320 0 Weight 155 lb 146 lb 6 oz General: sitting in stretcher, no acute distress Chest: CTAB, no rales or wheezing Abdomen: soft, NT Extremities: no edema Active Medications Amlodipine Besylate (Norvasc -) 10 mg PO HS [facility] Last Admin: 10/31/17 21:15 Dose: 10 mg Aspirin (Asa -) 81 mg PO DAILY [facility] Atorvastatin Calcium (Lipitor -) 20 mg PO HS [facility] Last Admin: 10/31/17 21:15 Dose: 20 mg Calcium Acetate (Phoslo -) 667 mg PO TIDCM [facility] Last Admin: 10/31/17 17:58 Dose: 667 mg Clopidogrel Bisulfate (Plavix -) 75 mg PO DAILY [facility] Last Admin: 10/31/17 17:59 Dose: 75 mg Donepezil HCl (Aricept -) 10 mg PO HS [facility] Last Admin: 10/31/17 21:15 Dose: 10 mg Heparin Sodium (Porcine) (Heparin -) 5,000 unit SQ TID [facility] Last Admin: 11/01/17 06:08 Dose: 5,000 unit Sodium Chloride (Normal Saline -) 250 mls @ 3,000 mls/hr IV PRN PRN PRN Reason: Hypotension during Dialysis Stop: 11/01/17 09:31 Sodium Chloride (Normal Saline -) 250 mls @ 3,000 mls/hr IV PRN PRN PRN Reason: Hypotension during Dialysis Stop: 11/01/17 09:33 Insulin Aspart (Novolog Vial Sliding Scale -) 1 vial SQ ACHS [facility]; Protocol Last Admin: 11/01/17 06:09 Dose: Not Given Insulin Detemir (Levemir Vial) 10 units SQ AM [facility] Last Admin: 11/01/17 06:08 Dose: Not Given Memantine (Namenda -) 5 mg PO DAILY [facility] Metoprolol Succinate (Toprol Xl -) 25 mg PO BID [facility] Last Admin: 10/31/17 21:16 Dose: 25 mg ASSESSMENT AND PLAN: 67 yof with ESRD (/Callie/Mon, last dialysis Sat), CVA, HLD, HTN, hypocalcemia, DM, 2x failed renal transplants (2006, 2016), multiple admissions for AMS/ weakness, admitted with chest pain and hyperkalemia -Hyperkalemia -Chest pain, from hyperkalemia, r/o ACS/underlying CAD -ESRD on HD -CVA -HTN -IDDM -Hypocalcemia -Failed renal transplant -Prolonged QTc -Eosinophilia, intermittent PLan: s/p emergent HD on 10/31, K stable. . Interval EKG to monitor QTc. Cardiology input appreciated. ACS ruled out, follow up stress test results. ASA/plavix/statin/metoprolol/amlodipine. Lipid panel noted. Recent 2D echo in 09/2017. ISS, diabetic diet, levemir as tolerated. Outpatient CBC monitoring and work up for eosinophilia if recurrent. Continue aricept/namenda DVTPPX with heparin Dispo pending cardiac work up above. Plan discussed with patient in detail, all questions answered.
--- NOTE | 2017-11-01 08:44 | PN ---
Progress Note, Physician Chief Complaint: No further CP TELE: NSR TnI negative x 3 - Current Medication List Current Medications: Active Medications Amlodipine Besylate (Norvasc -) 10 mg PO HS REPLACED BY [facility] Last Admin: 10/31/17 21:15 Dose: 10 mg Aspirin (Asa -) 81 mg PO DAILY REPLACED BY [facility] Atorvastatin Calcium (Lipitor -) 20 mg PO HS REPLACED BY [facility] Last Admin: 10/31/17 21:15 Dose: 20 mg Calcium Acetate (Phoslo -) 667 mg PO TIDCM REPLACED BY [facility] Last Admin: 10/31/17 17:58 Dose: 667 mg Clopidogrel Bisulfate (Plavix -) 75 mg PO DAILY REPLACED BY [facility] Last Admin: 10/31/17 17:59 Dose: 75 mg Donepezil HCl (Aricept -) 10 mg PO HS REPLACED BY [facility] Last Admin: 10/31/17 21:15 Dose: 10 mg Heparin Sodium (Porcine) (Heparin -) 5,000 unit SQ TID REPLACED BY [facility] Last Admin: 11/01/17 06:08 Dose: 5,000 unit Sodium Chloride (Normal Saline -) 250 mls @ 3,000 mls/hr IV PRN PRN PRN Reason: Hypotension during Dialysis Stop: 11/01/17 09:31 Sodium Chloride (Normal Saline -) 250 mls @ 3,000 mls/hr IV PRN PRN PRN Reason: Hypotension during Dialysis Stop: 11/01/17 09:33 Insulin Aspart (Novolog Vial Sliding Scale -) 1 vial SQ ACHS REPLACED BY [facility]; Protocol Last Admin: 11/01/17 06:09 Dose: Not Given Insulin Detemir (Levemir Vial) 10 units SQ AM REPLACED BY [facility] Last Admin: 11/01/17 06:08 Dose: Not Given Memantine (Namenda -) 5 mg PO DAILY REPLACED BY [facility] Metoprolol Succinate (Toprol Xl -) 25 mg PO BID REPLACED BY [facility] Last Admin: 10/31/17 21:16 Dose: 25 mg - Objective Vital Signs: Vital Signs Temperature 98.5 F 11/01/17 05:24 Pulse Rate 68 11/01/17 05:24 Respiratory Rate 20 11/01/17 05:24 Blood Pressure 168/80 11/01/17 05:24 O2 Sat by Pulse Oximetry (%) 94 L 10/31/17 21:00 Constitutional: Yes: Calm Eyes: Yes: Conjunctiva Clear Cardiovascular: Yes: Regular Rate and Rhythm Respiratory: Yes: CTA Bilaterally Gastrointestinal: Yes: Soft Edema: No Neurological: Yes: Alert, Oriented ...Motor Strength: WNL Labs: CBC, BMP 10/31/17 13:00 10/31/17 13:00 INR, PTT INR 0.99 (0.83-1.09) 10/31/17 13:00 Laboratory Tests 10/31/17 10/31/17 10/31/17 07:56 13:00 19:00 Troponin I < 0.02 < 0.02 < 0.02 - ....Imaging EKG: Image Reviewed Problem List - Problems (1) ESRD (end stage renal disease) on dialysis Code(s): N18.6 - END STAGE RENAL DISEASE; Z99.2 - DEPENDENCE ON RENAL DIALYSIS (2) Chest pressure Code(s): R07.89 - OTHER CHEST PAIN (3) Diabetes mellitus Code(s): E11.9 - TYPE 2 DIABETES MELLITUS WITHOUT COMPLICATIONS Qualifiers: Diabetes mellitus type: type 1 Diabetes mellitus complication status: with unspecified complications Qualified Code(s): E10.8 - Type 1 diabetes mellitus with unspecified complications (4) Prolonged QT interval Code(s): R94.31 - ABNORMAL ELECTROCARDIOGRAM [ECG] [EKG] (5) Abnormal ECG Code(s): R94.31 - ABNORMAL ELECTROCARDIOGRAM [ECG] [EKG] (6) Cerebrovascular accident (CVA) Code(s): I63.9 - CEREBRAL INFARCTION, UNSPECIFIED Qualifiers: CVA mechanism: unspecified Qualified Code(s): I63.9 - Cerebral infarction, unspecified (7) HLD (hyperlipidemia) Code(s): E78.5 - HYPERLIPIDEMIA, UNSPECIFIED (8) Valvular heart disease Code(s): I38 - ENDOCARDITIS, VALVE UNSPECIFIED Assessment/Plan IMP: ESRD DM H/o CVAs Hyperkalemia prior to HD Prolonged QT Atypical chest pain REC: 1. Telemetry thus far unremarkable. 2. Serial enzymes negative x 3 3. Repeat echo, r/o pericardial disease occasionally seen in HD patients. 4. ASA 5. Plan for exercise nuclear stress today. Repeat K+ ordered.
[2017-11-01] MEDS: CALCIUM ACETATE 667 MG CAPSULE (FP) PO SCH ×3 (08:46→17:24)
[2017-11-01] MEDS ORDERED: ASPIRIN 81 MG CHEWABLE TABLETS PO SCH (10:00)
[2017-11-01] MEDS ORDERED: MEMANTINE HCL 5 MG TABLET (UD) PO SCH (10:00)
[2017-11-01 10:47] LABS: BASO % 2.6 % (0-2.0); EOS % 20.2 % (0-4.5); HEMATOCRIT 38.7 % (32.4-45.2); HEMOGLOBIN 12.7 GM/dL (10.7-15.3); LYMPH % 18.6 % (8-40); MCH 30.7 pg (25.7-33.7); MCHC 32.8 g/dl (32.0-36.0); MEAN CELL VOLUME 93.5 fl (80-96); MEAN PLT VOLUME 8.2 fl (7.5-11.1); MONO % 7.7 % (3.8-10.2); NEUT % 50.9 % (42.8-82.8); PLATELET COUNT 201 K/MM3 (134-434); RBC 4.14 M/mm3 (3.60-5.2); RDW 16.1 % (11.6-15.6); WHITE BLOOD COUNT 5.2 K/mm3 (4.0-10.0)
[2017-11-01 11:12] LABS: ALBUMIN 3.9 g/dl (3.4-5.0); ALK PHOS 82 U/L (45-117); ANION GAP 10 (8-16); BILIRUBIN,TOTAL 0.7 mg/dL (0.2-1.0); BLOOD UREA NITROGEN 19 mg/dL (7-18); CHLORIDE 100 mmol/L (98-107); CO2 30 mmol/L (21-32); CREATININE 6.2 mg/dL (0.55-1.02); GLUCOSE,RANDOM 141 mg/dL (74-106); MAGNESIUM 2.1 mg/dL (1.8-2.4); PHOSPHOROUS 4.2 mg/dL (2.5-4.9); POTASSIUM 4.8 mmol/L (3.5-5.1); SGOT/AST 23 U/L (15-37); SGPT/ALT 35 U/L (12-78); SODIUM 140 mmol/L (136-145); TOT PROT 8.7 g/dl (6.4-8.2)
[2017-11-01] MEDS: metoPROLOL SUCCINATE 25 MG TAB.SR.24H (FP) PO SCH ×2 (12:48→21:13)
[2017-11-01] MEDS: CLOPIDOGREL BISULFATE 75 MG TABLET (FP) PO SCH (12:48)
--- NOTE | 2017-11-01 12:57 | PN ---
Physical Exam: SUBJECTIVE: Patient seen and examined at bedside. No acute events overnight. emergent HD yesterday. NPO for stress test today. No chest pain overnight. denies fever, chills, sob, n/v/d, urinary sxs. Tele NSR OBJECTIVE: Vital Signs Period Temp Pulse Resp BP Sys/Travis Pulse Ox Last 24 Hr 98.5 F-99.1 F 60-76 18-20 126-188/60-82 94-94 GENERAL: AAOx3 in NAD HEAD: NCAT EYES: EOMI, Conjunctiva clear, sclera anicteric ENT: MMM NECK: Supple, no JVD LUNGS: CTA B/L, no crackles no wheezing no accessory muscle use. 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 no ulcers noted NEUROLOGICAL: No focal deficit. Normal speech. gait not observed. sensation grossly intact PSYCHIATRIC: Cooperative. Good eye contact. Appropriate mood and affect. SKIN: Warm, dry, Laboratory Results - last 24 hr 10/31/17 10/31/17 10/31/17 13:00 13:00 13:00 WBC 5.6 RBC 3.74 Hgb 11.4 Hct 34.8 MCV 93.0 MCH 30.5 MCHC 32.8 RDW 15.9 H Plt Count 185 MPV 8.4 Absolute Neuts (auto) 4.2 Neutrophils % 74.9 D Lymphocytes % 11.1 Monocytes % 5.1 Eosinophils % 8.4 H Basophils % 0.5 Nucleated RBC % 0 PT with INR 11.20 INR 0.99 PTT (Actin FS) 38.0 H Sodium 144 Potassium 3.5 Chloride 105 Carbon Dioxide 31 Anion Gap 8 BUN 16 D Creatinine 4.2 H Creat Clearance w eGFR 10.62 POC Glucometer Random Glucose 170 H Calcium 8.0 L Phosphorus Magnesium 2.0 Total Bilirubin 0.6 AST 26 ALT 36 Alkaline Phosphatase 73 D Creatine Kinase 71 Troponin I < 0.02 B-Natriuretic Peptide 93313.94 H Total Protein 7.9 Albumin 3.6 Triglycerides 55 Cholesterol 98 Total LDL Cholesterol 41 HDL Cholesterol 51 08/14/18 08/14/18 08/14/18 13:00 13:00 17:05 WBC RBC Hgb Hct MCV MCH MCHC RDW Plt Count MPV Absolute Neuts (auto) Neutrophils % Lymphocytes % Monocytes % Eosinophils % Basophils % Nucleated RBC % PT with INR INR PTT (Actin FS) Sodium Potassium Chloride Carbon Dioxide Anion Gap BUN Creatinine Creat Clearance w eGFR POC Glucometer 120 Random Glucose Calcium Phosphorus 2.3 L Magnesium Total Bilirubin AST ALT Alkaline Phosphatase Creatine Kinase Troponin I B-Natriuretic Peptide Total Protein Albumin Triglycerides Cholesterol 96 Total LDL Cholesterol HDL Cholesterol 10/31/17 10/31/17 11/01/17 19:00 20:42 06:05 WBC RBC Hgb Hct MCV MCH MCHC RDW Plt Count MPV Absolute Neuts (auto) Neutrophils % Lymphocytes % Monocytes % Eosinophils % Basophils % Nucleated RBC % PT with INR INR PTT (Actin FS) Sodium Potassium Chloride Carbon Dioxide Anion Gap BUN Creatinine Creat Clearance w eGFR POC Glucometer 193 124 Random Glucose Calcium Phosphorus Magnesium Total Bilirubin AST ALT Alkaline Phosphatase Creatine Kinase Troponin I < 0.02 B-Natriuretic Peptide Total Protein Albumin Triglycerides Cholesterol Total LDL Cholesterol HDL Cholesterol 11/01/17 11/01/17 10:35 10:35 WBC 5.2 RBC 4.14 Hgb 12.7 Hct 38.7 MCV 93.5 MCH 30.7 MCHC 32.8 RDW 16.1 H Plt Count 201 MPV 8.2 Absolute Neuts (auto) 2.7 Neutrophils % 50.9 D Lymphocytes % 18.6 D Monocytes % 7.7 Eosinophils % 20.2 H* D Basophils % 2.6 H D Nucleated RBC % 0 PT with INR INR PTT (Actin FS) Sodium 140 Potassium 4.8 Chloride 100 Carbon Dioxide 30 Anion Gap 10 BUN 19 H Creatinine 6.2 H Creat Clearance w eGFR 6.78 POC Glucometer Random Glucose 141 H Calcium 8.0 L Phosphorus 4.2 Magnesium 2.1 Total Bilirubin 0.7 AST 23 ALT 35 Alkaline Phosphatase 82 Creatine Kinase Troponin I B-Natriuretic Peptide Total Protein 8.7 H Albumin 3.9 Triglycerides Cholesterol Total LDL Cholesterol HDL Cholesterol Active Medications Generic Name Dose Route Start Last Admin Trade Name Freq PRN Reason Stop Dose Admin Amlodipine Besylate 10 mg 10/31/17 22:00 10/31/17 21:15 Norvasc - PO 10 mg HS NAJMA Administration Aspirin 81 mg 11/01/17 10:00 11/01/17 12:48 Asa - PO 81 mg DAILY NAJMA Administration Atorvastatin Calcium 20 mg 10/31/17 22:00 10/31/17 21:15 Lipitor - PO 20 mg HS NAJMA Administration Calcium Acetate 667 mg 10/31/17 12:00 11/01/17 12:48 Phoslo - PO 667 mg TIDCM NAJMA Administration Clopidogrel Bisulfate 75 mg 10/31/17 11:15 11/01/17 12:48 Plavix - PO 75 mg DAILY NAJMA Administration Donepezil HCl 10 mg 10/31/17 22:00 10/31/17 21:15 Aricept - PO 10 mg HS NAJMA Administration Heparin Sodium (Porcine) 5,000 unit 10/31/17 14:00 11/01/17 06:08 Heparin - SQ 5,000 unit TID NAJMA Administration Insulin Aspart 1 vial 10/31/17 16:30 11/01/17 11:45 Novolog Vial Sliding Scale - SQ Not Given ACHS [facility] Protocol Insulin Detemir 10 units 11/01/17 07:00 11/01/17 06:08 Levemir Vial SQ Not Given AM NAJMA Memantine 5 mg 11/01/17 10:00 11/01/17 12:48 Namenda - PO 5 mg DAILY NAJMA Administration Metoprolol Succinate 25 mg 10/31/17 22:00 11/01/17 12:48 Toprol Xl - PO 25 mg BID NAJMA Administration ASSESSMENT/PLAN: 67 year old female with a history of ESRD (/Mon/Mon, last dialysis Sat), CVA, HLD, hypocalcemia, DM, 2x failed renal transplants (2006, 2016), multiple admissions for AMS/weakness presents to the hospital for weakness # chest pressure R/O ACS vs NSTEMI - stress test today * started this AM with 10/10 pressure likey symptoms local non radiating associated with diaphoresis and nausea * EKG with no changes , trop I negative x3 * ASA * Cardiology consult Dr Herron * tele monitor * Last [facility] in september 2017 with no significnt changes * c/w home meds Plavix, lipitor * rpt echo w/ mod pulm HTN, RV 30-40, LVEF nl, impaired LV relaxation * Stress submax with anteroapical ischemia (prelim), Recommended [facility] for definitive assessment of cor anatomy. Patient agrees to transfer to [facility] for LHC. # Hyperkalemia , Acute on chronic likey due to ESRD - resolved, s/p emergent HD yesterday * K 4.8 * EKG no T, wave changes but has chronic QTC prolongotion * Gluconate ca and D50 with insulin was given in ED # HTN controlled - s/p HD * likley due to ESRD * resume home meds Norvasc 10 mg po daily and Toprol XL 25 mg PO BID * start imdur 30 #ESRD (/Mon/): * Dr. Campoverde consult appreciated, for urgent dialysis yesterday # Prolonged QTC * 531 this AM * Avoid meds that prolonged QTC , avoid zofran * monitor on tele #Diabetes Mellitus: * patient's sugars are controlled * patient is on 10U of insulin degludec, a long acting (42hr) insulin, conversion is 1:1 with levemir * c/w 10U levemir in the morning * add sliding scale insulin ACHS * BGMs ACHS * low NA diabetic, renal diet #Hyperlipidemia: stable * continue Lipitor 20mg po HS #Hypocalcemia: * calcium 8.0 * continue home Calcium Acetate 667mg PO TID #Dementia: stable * continue memantine, donezepil #FEN * no standing fluids * replete calcium with home CaAcetate * renal diet #Prophylaxis * heparin 5000 subq TID #Disposition * telemetry * Patient agrees to transfer to [facility] for [facility]. Visit type - Emergency Visit Emergency Visit: Yes ED Registration Date: 10/31/17 Care time: The patient presented to the Emergency Department on the above date and was hospitalized for further evaluation of their emergent condition. - New Patient This patient is new to me today: Yes Date on this admission: 11/01/17 - Critical Care Critical Care patient: No
[2017-11-01 13:57] LABS: ANISOCYTOSIS 1+; MACROCYTOSIS 0; PLATELET ESTIMATE NORMAL
--- NOTE | 2017-11-01 15:07 | ECHO ---
Name: KOSTAS HOLT Exam:Adult Echocardiogram Study Date: 11/01/2017 08:33 AM Age: 67 yrs Reason For Study: CHEST PRESSURE PAIN Height: 64 in Weight: 155 lb BSA: 1.8 m2 MMode/2D Measurements & Calculations IVSd: 1.5 cm Ao root diam: 2.3 cm LVIDd: 4.4 cm LA dimension: 3.7 cm LVIDs: 3.0 cm LVPWd: 1.3 cm EDV(Teich): 88.1 ml LAV (MOD-bp): 98.1 ml ESV(Teich): 34.3 ml Doppler Measurements & Calculations MV E max pavan: 164.0 cm/sec Ao V2 max: 244.3 cm/sec MV A max pavan: 116.3 cm/sec Ao max P.9 mmHg MV E/A: 1.4 Ao V2 mean: 165.0 cm/sec MV dec time: 0.46 sec Ao mean P.7 mmHg Ao V2 VTI: 58.7 cm LV V1 max P.8 mmHg MR max pavan: 547.4 cm/sec LV V1 mean P.2 mmHg MR max P.5 mmHg LV V1 max: 97.0 cm/sec LV V1 mean: 69.1 cm/sec LV V1 VTI: 25.8 cm TR max pavan: 267.4 cm/sec Med Peak E' Pavan: 6.5 cm/sec TR max P.7 mmHg Med E/e': 25.1 Lat Peak E' Pavan: 7.5 cm/sec Lat E/e': 21.8 Left Ventricle The left ventricle is normal in size. The left ventricular ejection fraction is normal. The transmitr al spectral Doppler flow pattern is suggestive of impaired LV relaxation. Right Ventricle The right ventricular systolic function is normal. Atria The left atrium is mildly dilated. Mitral Valve There is moderate to severe mitral annular calcification. There is moderate mitral regurgitation. Tricuspid Valve There is moderate tricuspid regurgitation. Right ventricular systolic pressure is elevated at 30-40mm Hg. There is mild pulmonary hypertension. Aortic Valve There is moderate aortic valve thickening. Mild valvular aortic stenosis. Great Vessels The aortic root is normal size. Pericardium/Pleura There is no pericardial effusion. Interpretation Summary The left ventricle is normal in size. The left ventricular ejection fraction is normal. The transmitral spectral Doppler flow pattern is suggestive of impaired LV relaxation. The left atrium is mildly dilated. There is moderate mitral regurgitation. There is moderate tricuspid regurgitation. Right ventricular systolic pressure is elevated at 30-40mmHg. There is mild pulmonary hypertension. There is moderate aortic valve thickening. Mild valvular aortic stenosis. The aortic root is normal size. Huey Moeller MD 11/01/2017 03:06 PM
[2017-11-01] MEDS ORDERED: PANTOPRAZOLE 20 MG TABLET (FP) PO SCH (15:45)
[2017-11-01] MEDS ORDERED: ISOSORBIDE MONONITRATE 30 MG TAB.SR.24H (FP) PO SCH (16:15)
--- NOTE | 2017-11-01 16:54 | PN ---
Progress Note (short form) - Note Progress Note: Stress submax with anteroapical ischemia (prelim) D/w pt. Recommended LHC for definitive assessment of cor anatomy. Alternative of med Rx alone also reviewed. Risks/benefits of both approaches discussed in detail. Patient agrees to transfer to [facility] for LHC. Problem List - Problems (1) ESRD (end stage renal disease) on dialysis Code(s): N18.6 - END STAGE RENAL DISEASE; Z99.2 - DEPENDENCE ON RENAL DIALYSIS (2) Chest pressure Code(s): R07.89 - OTHER CHEST PAIN (3) Diabetes mellitus Code(s): E11.9 - TYPE 2 DIABETES MELLITUS WITHOUT COMPLICATIONS Qualifiers: Diabetes mellitus type: type 1 Diabetes mellitus complication status: with unspecified complications Qualified Code(s): E10.8 - Type 1 diabetes mellitus with unspecified complications (4) Prolonged QT interval Code(s): R94.31 - ABNORMAL ELECTROCARDIOGRAM [ECG] [EKG] (5) Abnormal ECG Code(s): R94.31 - ABNORMAL ELECTROCARDIOGRAM [ECG] [EKG] (6) Cerebrovascular accident (CVA) Code(s): I63.9 - CEREBRAL INFARCTION, UNSPECIFIED Qualifiers: CVA mechanism: unspecified Qualified Code(s): I63.9 - Cerebral infarction, unspecified (7) HLD (hyperlipidemia) Code(s): E78.5 - HYPERLIPIDEMIA, UNSPECIFIED (8) Valvular heart disease Code(s): I38 - ENDOCARDITIS, VALVE UNSPECIFIED
[2017-11-01] MEDS: ATORVASTATIN CA 20 MG TABLET (FP) PO SCH (21:12)
[2017-11-01] MEDS: DONEPEZIL HCL 10 MG TABLET (FP) PO SCH (21:13)
[2017-11-01] MEDS: amLODIPine BESYLATE 10 MG TABLET (FP) PO SCH (21:13)
[2017-11-01] MEDS ORDERED: INSULIN (NOVOLOG) ASPART 100 UNITS/ML 10ML VIAL ONE (21:17)
[2017-11-01 23:27] VITALS: BP 157/76; PULSE 73; TEMP 98.2
--- NOTE | 2017-11-02 07:54 | DS ---
Physical Exam: SUBJECTIVE: Patient seen and examined at bedside. No acute events overnight. emergent HD yesterday. NPO for stress test today. No chest pain overnight. denies fever, chills, sob, n/v/d, urinary sxs. Tele NSR. Will transfered to [facility] for cath OBJECTIVE: Vital Signs Period Temp Pulse Resp BP Sys/Travis Pulse Ox Last 24 Hr 98.2 F-99.2 F 72-77 18-20 126-174/60-79 93-94 PHYSICAL EXAM GENERAL: AAOx3 in NAD HEAD: NCAT EYES: EOMI, Conjunctiva clear, sclera anicteric ENT: MMM NECK: Supple, no JVD LUNGS: CTA B/L, no crackles no wheezing no accessory muscle use. 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 no ulcers noted NEUROLOGICAL: No focal deficit. Normal speech. gait not observed. sensation grossly intact PSYCHIATRIC: Cooperative. Good eye contact. Appropriate mood and affect. SKIN: Warm, dry, LABS Laboratory Results - last 24 hr 10/31/17 11/01/17 11/01/17 13:00 10:35 10:35 WBC 5.2 RBC 4.14 Hgb 12.7 Hct 38.7 MCV 93.5 MCH 30.7 MCHC 32.8 RDW 16.1 H Plt Count 201 MPV 8.2 Absolute Neuts (auto) 2.7 Neutrophils % 50.9 D Neutrophils % (Manual) 53.1 Band Neutrophils % 0.0 Lymphocytes % 18.6 D Lymphocytes % (Manual) 14.6 D Monocytes % 7.7 Monocytes % (Manual) 8 Eosinophils % 20.2 H* D Eosinophils % (Manual) 20.9 H Basophils % 2.6 H D Basophils % (Manual) 3.1 H Myelocytes % (Man) 0 Promyelocytes % (Man) 0 Blast Cells % (Manual) 0 Nucleated RBC % 0 Metamyelocytes 0 Hypochromia 0 Platelet Estimate Normal Polychromasia 1+ Poikilocytosis 0 Anisocytosis 1+ Macrocytosis 0 Sodium 140 Potassium 4.8 Chloride 100 Carbon Dioxide 30 Anion Gap 10 BUN 19 H Creatinine 6.2 H Creat Clearance w eGFR 6.78 POC Glucometer Random Glucose 141 H Hemoglobin A1c % 7.5 H Calcium 8.0 L Phosphorus 4.2 Magnesium 2.1 Total Bilirubin 0.7 AST 23 ALT 35 Alkaline Phosphatase 82 Total Protein 8.7 H Albumin 3.9 11/01/17 11/01/17 17:22 21:14 WBC RBC Hgb Hct MCV MCH MCHC RDW Plt Count MPV Absolute Neuts (auto) Neutrophils % Neutrophils % (Manual) Band Neutrophils % Lymphocytes % Lymphocytes % (Manual) Monocytes % Monocytes % (Manual) Eosinophils % Eosinophils % (Manual) Basophils % Basophils % (Manual) Myelocytes % (Man) Promyelocytes % (Man) Blast Cells % (Manual) Nucleated RBC % Metamyelocytes Hypochromia Platelet Estimate Polychromasia Poikilocytosis Anisocytosis Macrocytosis Sodium Potassium Chloride Carbon Dioxide Anion Gap BUN Creatinine Creat Clearance w eGFR POC Glucometer 173 156 Random Glucose Hemoglobin A1c % Calcium Phosphorus Magnesium Total Bilirubin AST ALT Alkaline Phosphatase Total Protein Albumin HOSPITAL COURSE: Date of Admission:10/31/17 Date of Discharge: 11/02/17 67 year old female with a history of ESRD (/Mon/Mon), CVA, HLD, hypocalcemia, DM, 2x failed renal transplants (2006, 2016), multiple admissions for AMS/ weakness presents to the hospital for weakness, chest pain, and hyperkalemia Admitted for r/o ACS, hyperkalemia, HTN urgency, and emergent HD. Pt found w/ Elevated BP 180/80s, all other vitals were stable. EKG with no T, wave changes but has chronic QTC prolongation, QTC 531 , trop negative x3, hyperkalemia of 7.2, CXR showed mild congestive changes. Pt went for emergent HD w/ subsequent resolution of HTN urgency, sxs, and electrolyte abnormalities. Pt was monitored on tele showing NSR and underwent echo and and stress test. echo w/ mod pulm HTN, RV 30-40, LVEF nl, impaired LV relaxation and Stress test w/ submax with anteroapical ischemia (prelim), Recommended [facility] for definitive assessment of cor anatomy. Pt was started on imdur, per cardio, and was transferred to [facility] for LHC. Pt is stable and ready for transfer. Minutes to complete discharge: 35 Discharge Summary Reason For Visit: SENSATION OF CHEST PRESSURE, HYPERKALEMIA Condition: Stable - Instructions Diet, Activity, Other Instructions: You were admitted for chest pain and high levels of your potassium. We gave you emergent dialysis and your chest pain improved and your potassium levels corrected. In the hospital we did a stress test of your heart which showed some areas of the heart that might be weak due to clogged arteries. We will need to do another test called a Left Heart Catheterization that will give us a better look at the arteries of the heart and potentially relieve some of the blockage. Your Blood counts showed high eosinophil count. Please follow up with your primary care physician to monitor your Blood counts ( CBC) for persistent high eosinophil count and further testing accordingly. Please resume your home meds as prior to coming to the hospital. Please continue going to your dialysis appointments Please avoid fatty foods. 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 If you experience any chest pain, shortness of breath, abdominal pain, nausea, vomiting, please call 911 or come to the ER Referrals: Loren Lutz MD [Primary Care Provider] - 1 Week Joselito Tovar MD [Staff Physician] - 1 Week Disposition: TRANSFER ACUTE CARE/OTHER HOSP - Home Medications Comprehensive Discharge Medication List: Ambulatory Orders Atorvastatin Ca [Lipitor] 20 mg PO HS 11/12/15 Clopidogrel Bisulfate [Plavix -] 75 mg PO DAILY tablet 11/03/16 Amlodipine Besylate [Norvasc -] 10 mg PO HS 05/31/17 Calcium Acetate 667 mg PO TID 05/31/17 Donepezil HCl [Aricept] 10 mg PO HS 05/31/17 Insulin Degludec [Tresiba Flextouch U-100] 10 units SQ AM 05/31/17 Insulin Lispro [Humalog] 0 unit SCJ PRN PRN 05/31/17 Memantine HCl 5 mg PO DAILY 05/31/17 Metoprolol Succinate [Toprol XL -] 25 mg PO BID #60 tab.sr.24h 10/11/17 Metoprolol Tartrate 50 mg PO BID 11/01/17 Pantoprazole Sodium [Protonix] 40 mg PO 0600 11/01/17 levETIRAcetam [Keppra -] 250 mg PO BID 11/01/17 This patient is new to me today: Yes Date on this admission: 11/02/17 Emergency Visit: Yes ED Registration Date: 10/31/17 Care time: The patient presented to the Emergency Department on the above date and was hospitalized for further evaluation of their emergent condition. Critical Care patient: No - Discharge Referral Referred to [facility] Med P.C.: No
== END 2017-11-01 23:30 | disposition short-term general hospital (02) | DRG 311 ==
LOC: JER 05:33 → JERBED 09:47 → OBSVTOIN 11:02 → J4S 16:27
PROVIDERS: ADMIT Hospitalist; ATTEND Hospitalist
PROC: 5A1D90Z Performance of Urinary Filtration, Continuous, Greater than 18 hours Per Day (ICD-10-PCS; principal; 2017-10-31)
DX: I20.9 Angina pectoris, unspecified (principal); N18.6 End stage renal disease; I12.0 Hypertensive chronic kidney disease with stage 5 chronic kidney disease or end stage renal disease; R07.89 Other chest pain; E87.5 Hyperkalemia; E78.5 Hyperlipidemia, unspecified; Z99.2 Dependence on renal dialysis; E11.22 Type 2 diabetes mellitus with diabetic chronic kidney disease; Z79.4 Long term (current) use of insulin; E83.51 Hypocalcemia; F03.90 Unspecified dementia, unspecified severity, without behavioral disturbance, psychotic disturbance, mood disturbance, and anxiety; I16.0 Hypertensive urgency
CPT/HCPCS: 36415; 71045-TC-FY; 78452-TC; 80053; 80061; 82465; 82550; 82962; 83036; 83721; 83735; 83880; 84100; 84484; 85025; 85610; 85730; 93005; 93010; 93017; 93306-TC; 99282-25; 99285-25; A9502; G0378; J1644

== ENCOUNTER 2018-03-07 16:53 | Emergency (ER) | payer OTHER ==
--- NOTE | 2018-03-07 17:24 | PDOC ---
Attending Attestation - HPI HPI: 03/07/18 18:18 The patient is a 67 year old female with a past medical history of ESRD (/Callie/ Mon 2 failed renal transplants ), HTN, CVA (on plavix), HLD, hypocalcemia , and DM here today for evaluation of an episode of weakness and shortness of breath. The patient reports that she felt some weakness, shortness of breath, cough, throat tickle, and tongue numbness in the shower this morning. The patient reports checking her blood sugar and notes that it was in the 50s. The patient ate and reports feeling slightly better. Patient denies headache, lightheadedness, blurry vision. Denies fever, chills. Denies chest pain. Denies nausea, vomiting, diarrhea, abdominal pain. Denies lower extremity edema. Allergies: codeine, promethazine HCL Surgical history: AV fistula PCP: none reported - Physicial Exam PE: 03/07/18 18:18 Constitutional: Awake, alert, oriented. No acute distress. Head: Normocephalic. Atraumatic Eyes: PERRL. EOMI. Conjunctivae are not pale. ENT: +dentures upper teeth. Mucous membranes are moist and intact. Posterior pharynx without exudates or erythema. Uvula midline. Neck: Supple. Full ROM. No lymphadenopathy. Cardiovascular: +Bruits heard in left forearm. Regular rate. Regular rhythm. S1, S2 regular. Distal pulses are 2+ and symmetric. Pulmonary/Chest: No evidence of respiratory distress. Clear to auscultation bilaterally No wheezing, rales or rhonchi. Abdominal: Soft and non-distended. There is no tenderness. No rebound, guarding or rigidity. No organomegaly. No palpable masses. Good bowel sounds. Back: No CVA tenderness. Extremities: +left upper extremity AV fistula. Musculoskeletal: No edema. No cyanosis. No clubbing. Full range of motion in all extremities. No calf tenderness. Radial/pedal pulses are intact and 2+ bilaterally Skin: Skin is warm and dry. No petechiae. No purpura. Neurological: Alert and oriented to person, place, and time. Cranial nerves II -XII are grossly intact. Normal speech. Strength is grossly symmetric. No sensory deficits. Psychiatric: Good eye contact. Normal interaction, affect and behavior. <Richard Oneal - Last Filed: 12/19/18 19:10> - Resident Resident Name: Jeffery Nunez - ED Attending Attestation I have performed the following: I have examined & evaluated the patient, The case was reviewed & discussed with the resident, I agree w/resident's findings & plan, Exceptions are as noted - Medical Decision Making 03/07/18 17:24 I, Dr. Karley Mcdaniel, DO, attest that this document has been prepared under my direction and personally reviewed by me in its entirety. I further attest, that it accurately reflects all work, treatment, procedures and medical decision -making performed by me. 03/07/18 18:11 a/p: 67yo female with an episode of feeling weak, lightheaded, and tongue tingling -at the time her glucose was 55, all symptoms improved with sugar intake -newly start januvia 3 weeks ago, but still following old sliding scale - suspect overdose of short acting insulin earlier - gave herself 7 units for a glucose of 351. -will send labs -baseline temp 96 -denies all complaints at this time -will monitor, will reassess -glucose 177 upon arrival -nontoxic in appearance -had full hd yesterday -family at the bedside states she was told to change her sliding scale since starting januvia - but still following old scale. 03/07/18 19:47 cxr with mild cephalization 03/07/18 19:47 cbc without elevated wbc 03/07/18 20:57 labs reviewed mildly elevated k - will give kayexelate and then pt has HD tomorrow no ekg changes pt feeling better suspect episode earlier from glucose being low stable for d/c to home and follow up with endocrine <Karley Mcdaniel - Last Filed: 03/07/18 20:58> Heart Score/ECG Review - ECG Intrepretation Comment:: 03/07/18 17:41 sinus at 73, nl axis, nl interval, qtc 513, no acute st/t wave findings <Karley Mcdaniel - Last Filed: 03/07/18 20:58>
[2018-03-07 17:43] VITALS: BMI 25.9
--- NOTE | 2018-03-07 17:43 | PDOC ---
History of Present Illness - General Chief Complaint: Weakness Stated Complaint: WEAKNESS Time Seen by Provider: 03/07/18 17:02 History Source: Patient Exam Limitations: No Limitations - History of Present Illness Initial Comments: 67 year old female with PMH of ESRD (/Mon/Mon 2 failed renal transplants ), HTN, CVA (on plavix), HLD, hypocalcemia, and DM presents to the ER after an episode earlier today in the shower where she felt dizzy, weak and lightheaded. She also endorses having an episode of the chills earlier today, a dry cough, and occasional throat discomfort. She thinks this all happened because she was "low on sugar" than she drank some juice at home and felt better. She denies any recent fevers, infections, chest pain, SOB, difficulty breathing , back pain, abdominal pain, headache, neck pain, numbness, tingling, chills, or producing urine. PCP: Loren Lutz Allergies: Codeine, phenergan Social Hx: Denies using cigarettes, alcohol, or illicit drug usage. Past History - Past Medical History Allergies/Adverse Reactions: Allergies Allergy/AdvReac Type Severity Reaction Status Date / Time codeine Allergy Verified 03/07/18 18:15 promethazine HCl Allergy Verified 03/07/18 18:15 [From Phenergan] Home Medications: Ambulatory Orders Atorvastatin Ca [Lipitor] 20 mg PO HS 11/12/15 Clopidogrel Bisulfate [Plavix -] 75 mg PO DAILY tablet 11/03/16 Amlodipine Besylate [Norvasc -] 10 mg PO HS 05/31/17 Calcium Acetate 667 mg PO TID 05/31/17 Donepezil HCl [Aricept] 10 mg PO HS 05/31/17 Insulin Lispro [Humalog] 0 unit SCJ PRN PRN 05/31/17 Memantine HCl 5 mg PO DAILY 05/31/17 Metoprolol Tartrate 50 mg PO BID 11/01/17 Pantoprazole Sodium [Protonix] 40 mg PO 0600 11/01/17 Anemia: Yes Asthma: No Cancer: No Cardiac Disorders: Yes (angina) CVA: Yes (L sided weakness) COPD: No CHF: No DVT: No Dementia: Yes (AMS) Diabetes: Yes Dialysis: Yes () GI Disorders: Yes (GERD) Disorders: No HTN: Yes Hypercholesterolemia: Yes Liver Disease: No Seizures: Yes Thyroid Disease: No - Surgical History Abdominal Surgery: Yes Appendectomy: Yes Neurologic Surgery: No - Immunization History Immunization Up to Date: Yes - Suicide/Smoking/Psychosocial Hx Smoking Status: No Smoking History: Never smoked Have you smoked in the past 12 months: No Number of Cigarettes Smoked Daily: 0 Hx Alcohol Use: No Drug/Substance Use Hx: No Substance Use Type: None Hx Substance Use Treatment: No Review of Systems - Review of Systems Able to Perform ROS?: Yes Comments:: CONSTITUTIONAL: Present: Chills Absent: fever, no fatigue EYES: Absent: visual changes ENT: Absent: ear pain, no sore throat CARDIOVASCULAR: Absent: chest pain, no palpitations RESPIRATORY: Present: Cough Absent: no SOB GI: Absent: abdominal pain, no nausea, no vomiting, no constipation, no diarrhea GENITOURINARY: Absent: dysuria, no frequency, no hematuria MUSKULOSKELETAL: Absent: back pain, no arthralgia, no myalgia SKIN: Absent: rash NEURO: Absent: headache *Physical Exam - Vital Signs Last Vital Signs Temp Pulse Resp BP Pulse Ox 93.5 F L 73 18 132/65 100 03/07/18 17:22 03/07/18 17:22 03/07/18 17:22 03/07/18 17:22 03/07/18 17:22 - Physical Exam General Appearance: Yes: Nourished, Appropriately Dressed. No: Apparent Distress HEENT: positive: EOMI, NORAH, Normal ENT Inspection, Normal Voice. negative: Rhinorrhea Neck: positive: Supple. negative: Decreased range of motion, Lymphadenopathy (R ), Lymphadenopathy (L) Respiratory/Chest: positive: Crackles (Left sided). negative: Respiratory Distress, Accessory Muscle Use, Labored Respiration, Rapid RR Cardiovascular: positive: Regular Rhythm, Regular Rate, Systolic Murmur ( Holosystolic) Vascular Pulses: Dorsalis-Pedis (R): 2+, Doralis-Pedis (L): 2+ Gastrointestinal/Abdominal: positive: Normal Bowel Sounds, Flat, Soft. negative : Guarding, Rebound Rectal Exam: positive: normal exam, normal rectal tone Lymphatic: negative: Adenopathy Musculoskeletal: positive: Normal Inspection. negative: CVA Tenderness Extremity: positive: Normal Capillary Refill, Normal Inspection, Normal Range of Motion Integumentary: positive: Normal Color, Dry, Cold Neurologic: positive: burn center nurse II-XII NML intact, Fully Oriented, Alert, Normal Mood/ Affect Moderate Sedation - Procedure Monitoring Vital Signs: Procedure Monitoring Vital Signs Temperature 93.5 F L 03/07/18 17:22 Pulse Rate 73 03/07/18 17:22 Respiratory Rate 18 03/07/18 17:22 Blood Pressure 132/65 03/07/18 17:22 O2 Sat by Pulse Oximetry (%) 100 03/07/18 17:22 Procedures - Bedside Ultrasound Other: Vascular Access Remarks: 20 gauge IV placed in Right AC under ultrasound guidance. Confirmed by US picture, blood return, easy flush. Heart Score/ECG Review - ECG Intrepretation Rhythm: Regular Rhythm - [place]: Normal - P and IN Delta Wave(s) Present: No WPW: No - ST and T Prolonged Q-T Interval: Yes - ECG Impressions Normal ECG: No Bradycardia: No (Prolonged QT) ED Treatment Course - LABORATORY CBC & Chemistry Diagram: 03/07/18 18:00 03/07/18 18:00 - ADDITIONAL ORDERS Additional order review: Laboratory Results 03/07/18 17:21 POC Glucometer 176.90614 03/07/18 17:21 POC Glucometer 176.12538 Medical Decision Making - Medical Decision Making 67 year old female with PMH of ESRD (/Callie/Sat 2 failed renal transplants ), HTN, CVA (on plavix), HLD, hypocalcemia, and DM presents to the ER after an episode earlier today in the shower where she felt dizzy, weak and lightheaded. - hypothermic temperature - Crackles on exam - Systolic murmur DDx IBNLT: PNA, Arrhythmia, hypoglycemia, electrolyte abnormality, CVA/stroke, ACS, dehydration, Sepsis, other infection. Plan: Cbc, Cmp, Trop, Mag, Phos, lactic, blood cultures, CXR, EKG, re-assess. Patient was difficult to obtain IV Access I placed a 20 gauge IV in the Right AC. Signing patient out to night team. *DC/Admit/Observation/Transfer Diagnosis at time of Disposition: Dizziness - Referrals - Patient Instructions - Post Discharge Activity
[2018-03-07 18:41] LABS: BASO % 0.9 % (0-2.0); EOS % 18.7 % (0-4.5); HEMOGLOBIN 12.8 GM/dL (10.7-15.3); MCH 31.4 pg (25.7-33.7); MCHC 33.7 g/dl (32.0-36.0); MEAN CELL VOLUME 93.3 fl (80-96); MEAN PLT VOLUME 9.1 fl (7.5-11.1); MONO % 6.5 % (3.8-10.2); NEUT % 60.9 % (42.8-82.8); PLATELET COUNT 224 K/MM3 (134-434); RBC 4.07 M/mm3 (3.60-5.2); WHITE BLOOD COUNT 7.4 K/mm3 (4.0-10.0)
[2018-03-07 20:13] LABS: ALBUMIN 3.4 g/dl (3.4-5.0); ALK PHOS 70 U/L (45-117); ANION GAP 7 MMOL/L (8-16); BILIRUBIN,TOTAL 0.4 mg/dL (0.2-1); BLOOD UREA NITROGEN 31 mg/dL (7-18); CALCIUM 7.8 mg/dL (8.5-10.1); CHLORIDE 103 mmol/L (98-107); CO2 25 mmol/L (21-32); GLUCOSE,RANDOM 270 mg/dL (74-106); MAGNESIUM 1.9 mg/dL (1.8-2.4); PHOSPHOROUS 5.2 mg/dL (2.5-4.9); POTASSIUM 5.6 mmol/L (3.5-5.1); SGOT/AST 27 U/L (15-37); SGPT/ALT 36 U/L (13-61); SODIUM 135 mmol/L (136-145); TOT PROT 7.7 g/dl (6.4-8.2)
[2018-03-07] MEDS ORDERED: SODIUM POLYSTYRENE SULFONATE 15 GM/60 ML BOTTLE PO ONE (20:49)
--- NOTE | 2018-03-07 20:51 | PDOC ---
*Physical Exam - Vital Signs Last Vital Signs Temp Pulse Resp BP Pulse Ox 97.3 F L 85 18 146/77 99 03/07/18 20:13 03/07/18 20:13 03/07/18 17:22 03/07/18 20:13 03/07/18 20:13 ED Treatment Course - LABORATORY CBC & Chemistry Diagram: 03/07/18 18:00 03/07/18 19:35 - ADDITIONAL ORDERS Additional order review: Laboratory Results 03/07/18 03/07/18 03/07/18 19:35 18:00 18:00 Sodium 135 L Cancelled Potassium 5.6 H Cancelled Chloride 103 Cancelled Carbon Dioxide 25 Cancelled Anion Gap 7 L Cancelled BUN 31 H Cancelled Creatinine 7.0 H Cancelled Creat Clearance w eGFR 5.89 Cancelled POC Glucometer Random Glucose 270 H Cancelled Lactic Acid 1.0 Calcium 7.8 L Cancelled Phosphorus 5.2 H Cancelled Magnesium 1.9 Cancelled Total Bilirubin 0.4 Cancelled AST 27 Cancelled ALT 36 Cancelled Alkaline Phosphatase 70 Cancelled Troponin I < 0.02 Cancelled Total Protein 7.7 Cancelled Albumin 3.4 Cancelled 03/07/18 17:21 Sodium Potassium Chloride Carbon Dioxide Anion Gap BUN Creatinine Creat Clearance w eGFR POC Glucometer 176.55845 Random Glucose Lactic Acid Calcium Phosphorus Magnesium Total Bilirubin AST ALT Alkaline Phosphatase Troponin I Total Protein Albumin 03/07/18 03/07/18 18:00 17:21 RBC 4.07 MCV 93.3 MCHC 33.7 RDW 16.0 H MPV 9.1 D Neutrophils % 60.9 Lymphocytes % 13.0 D Monocytes % 6.5 Eosinophils % 18.7 H Basophils % 0.9 POC Glucometer 176.44724 Medical Decision Making - Medical Decision Making 03/07/18 20:56 Pt signed out by Dr. Workman Presented for dizziness and weakness, believes she was hypoglycemic Drank juice while in the ED and states symptoms have resolved Blood work done showing sugar of 270 normal mg K of 5.6, given 1 dose of kayexalate Pt has dialysis tomorrow at 6 am and an appointment with Nephro (Dr. Lackey) Pt reassessed and feels back to baseline. No current complaints or concerns DC with PCP follow up and Nephro appointment in the morning. *DC/Admit/Observation/Transfer Diagnosis at time of Disposition: Dizziness - Discharge Dispostion Disposition: HOME Condition at time of disposition: Stable Decision to Admit order: No - Referrals - Patient Instructions Printed Discharge Instructions: DI for Hypoglycemia, DI for Dizziness- Nonvertigo Additional Instructions: Please make appointment with your Primary Car Doctor within the next 48 hours regarding your visit today. Make it to your dialysis appointment tomorrow at 6 am and discuss your ED visit with your Test Facility Engineer, Dr. Lackey. Return to the Emergency Room for new or concerning symptoms including but not limited to: continued dizziness, fatigue, weakness, lose of consciousness, headaches, fevers, chest pain or shortness of breath. Continue taking your home dosed medications as prescribed by your Primary Care Provider. Thank you - Post Discharge Activity
[2018-03-07 21:23] VITALS: BP 138/72; PULSE 86; TEMP 98.1
--- NOTE | 2018-03-08 12:03 | EKG ---
Test Reason : Blood Pressure : / mmHG Vent. Rate : 073 BPM Atrial Rate : 073 BPM P-R Int : 186 ms QRS Dur : 108 ms QT Int : 466 ms P-R-T Axes : 062 039 070 degrees QTc Int : 513 ms NORMAL SINUS RHYTHM PROLONGED QT ABNORMAL ECG WHEN COMPARED WITH ECG OF 31-OCT-2017 05:49, NO SIGNIFICANT CHANGE WAS FOUND Confirmed by CARLI JIMENEZ MD ([id number]) on 03/08/2018 12:03:37 PM Referred By: Confirmed By:CARLI JIMENEZ MD
== END 2018-03-07 21:05 | disposition home or self-care (01) ==
LOC: JER 16:53
DX: R42 Dizziness and giddiness (principal); I12.0 Hypertensive chronic kidney disease with stage 5 chronic kidney disease or end stage renal disease; E11.22 Type 2 diabetes mellitus with diabetic chronic kidney disease; N18.6 End stage renal disease; N17.8 Other acute kidney failure; Z99.2 Dependence on renal dialysis; Z79.4 Long term (current) use of insulin; E87.5 Hyperkalemia; E78.5 Hyperlipidemia, unspecified; I69.854 Hemiplegia and hemiparesis following other cerebrovascular disease affecting left non-dominant side; Z79.01 Long term (current) use of anticoagulants
CPT/HCPCS: 36415; 71046-TC-FY; 80053; 82962; 83605; 83735; 84100; 84484; 85025; 87040; 93005; 93010; 99285-25

== ENCOUNTER 2018-06-25 17:12 | Emergency (ER) | payer OTHER ==
--- NOTE | 2018-06-25 17:32 | PDOC ---
History of Present Illness - General Chief Complaint: Weakness Stated Complaint: WEAKNESS Time Seen by Provider: 06/25/18 17:29 History Source: Patient Exam Limitations: No Limitations - History of Present Illness Initial Comments: 06/25/18 19:11 67 year old female with PMH of ESRD (/Mon 2 failed renal transplants ), HTN, CVA (on plavix), HLD, hypocalcemia, and DM presents to the ER from [facility] with feelings of fatigue and feeling hot. She reports some chest tightness but denies chest pain. She reports that she has not drank many fluids today due to her ESRD. She denies dizziness, lightheadedness, shortness of breath, abdominal pain, n/v/d/c, diarrhea, constipation. She has no other complaints at bedside. She does not make urine Past History - Past Medical History Allergies/Adverse Reactions: Allergies Allergy/AdvReac Type Severity Reaction Status Date / Time codeine Allergy Verified 06/25/18 17:50 promethazine HCl Allergy Verified 06/25/18 17:50 [From Phenergan] Home Medications: Ambulatory Orders Atorvastatin Ca [Lipitor] 20 mg PO HS 11/12/15 Clopidogrel Bisulfate [Plavix -] 75 mg PO DAILY tablet 11/03/16 Amlodipine Besylate [Norvasc -] 10 mg PO HS 05/31/17 Calcium Acetate 667 mg PO TID 05/31/17 Donepezil HCl [Aricept] 10 mg PO HS 05/31/17 Insulin Lispro [Humalog] 0 unit SCJ PRN PRN 05/31/17 Memantine HCl 5 mg PO DAILY 05/31/17 Metoprolol Tartrate 50 mg PO BID 11/01/17 Pantoprazole Sodium [Protonix] 40 mg PO 0600 11/01/17 Anemia: Yes Asthma: No Cancer: No Cardiac Disorders: Yes (angina) CVA: Yes (L sided weakness) COPD: No CHF: No DVT: No Dementia: Yes (AMS) Diabetes: Yes Dialysis: Yes () GI Disorders: Yes (GERD) Disorders: No HTN: Yes Hypercholesterolemia: Yes Liver Disease: No Seizures: Yes Thyroid Disease: No - Surgical History Abdominal Surgery: Yes Appendectomy: Yes Neurologic Surgery: No - Immunization History Immunization Up to Date: Yes - Suicide/Smoking/Psychosocial Hx Smoking Status: No Smoking History: Never smoked Have you smoked in the past 12 months: No Number of Cigarettes Smoked Daily: 0 Hx Alcohol Use: No Drug/Substance Use Hx: No Substance Use Type: None Hx Substance Use Treatment: No Review of Systems - Review of Systems Able to Perform ROS?: Yes ED Treatment Course - LABORATORY CBC & Chemistry Diagram: 06/25/18 18:25 06/25/18 18:13 Medical Decision Making - Medical Decision Making 06/25/18 19:14 67 year old female with PMH of ESRD (/Callie/Mon 2 failed renal transplants ), HTN, CVA (on plavix), HLD, hypocalcemia, and DM presents to the ER from [facility] with feelings of fatigue and feeling hot. She reports some chest tightness but denies chest pain. She reports that she has not drank many fluids today due to her ESRD. She denies dizziness, lightheadedness, shortness of breath, abdominal pain, n/v/d/c, diarrhea, constipation. She has no other complaints at bedside. ED Course: consider ddx ibnlt: electrolyte derangement vs pna r/o acs vs arrythmia cbc, cmp, trop, cxr HEART score 3 EKG: normal sinus rhythm HR 84, no interval abnormalities, narrow QRS, ST and T wave segments and morphology normal, QTC 501 K 5.6 calcium gluconate, albuterol, insulin 10, kayexylate, sodium bicarb repeat 3hr trop CXR: midline airway, appropriate vascular markings, no blunting of costophrenic angle, no cardiomegaly repeat trop - negative D/C 06/25/18 21:54 *DC/Admit/Observation/Transfer Diagnosis at time of Disposition: Fatigue - Discharge Dispostion Disposition: HOME Condition at time of disposition: Stable Decision to Admit order: No - Referrals Referrals: Loren Lutz MD [Primary Care Provider] - - Patient Instructions Printed Discharge Instructions: DI for Fatigue Additional Instructions: You were seen in the ED for complaints of fatigue. In the ED you were evaluated with labwork and imaging. Your results were largely unremarkable. There does not appear to be an acute need for immediate hospitalization. You are advised to follow up with your Primary Care Physician within 1 week Return to the ED immediately if you experience chest pain, shortness of breath, headache, nausea,vomiting, fevers, loss of consciousness, abdominal pain, dizziness or lightheadedness. - Post Discharge Activity
[2018-06-25 17:50] VITALS: TEMP 98.1; BMI 26.4
[2018-06-25] MEDS: SODIUM CHLORIDE 1,000 ML IV SCH ×2 (18:42→18:46)
[2018-06-25 19:10] LABS: BASO % 2.1 % (0-2.0); EOS % 15.5 % (0-4.5); HEMATOCRIT 36.4 % (32.4-45.2); HEMOGLOBIN 11.8 GM/dL (10.7-15.3); LYMPH % 19.8 % (8-40); MCH 31.1 pg (25.7-33.7); MCHC 32.5 g/dl (32.0-36.0); MEAN CELL VOLUME 95.8 fl (80-96); MEAN PLT VOLUME 8.5 fl (7.5-11.1); MONO % 8.9 % (3.8-10.2); NEUT % 53.7 % (42.8-82.8); PLATELET COUNT 195 K/MM3 (134-434); RDW 14.3 % (11.6-15.6); WHITE BLOOD COUNT 6.1 K/mm3 (4.0-10.0)
[2018-06-25] MEDS ORDERED: CALCIUM GLUCONATE 10% - 1,000 MG/10 ML VIAL IVPUSH ONE (19:20)
[2018-06-25] MEDS ORDERED: ALBUTEROL SO4 2.5/IPRATROPIUM 0.5 INH SOL 3 ML VIAL.NEB. NEB ONE (19:21)
[2018-06-25] MEDS ORDERED: SODIUM POLYSTYRENE SULFONATE 15 GM/60 ML BOTTLE PO ONE (19:21)
[2018-06-25] MEDS ORDERED: INSULIN REGULAR HUMAN 100 UNITS/ML *VIAL IVPUSH ONE (19:22)
[2018-06-25] MEDS ORDERED: SODIUM BICARBONATE 8.4% 50 MEQ/50 ML DISP.SYRIN IVPUSH ONE (19:25)
[2018-06-25] MEDS ORDERED: DEXTROSE 50%-WATER - 25 GM/50 ML VIAL IVPUSH ONE (19:33)
--- NOTE | 2018-06-25 19:34 | PDOC ---
Attending Attestation - HPI HPI: 06/25/18 19:59 The patient is a 67 year old female, with a significant past medical history of ESRD (/Callie/Sat 2 failed renal transplants , ), HTN, CVA (on plavix), HLD, hypocalcemia, and DM, who presents to the emergency department with, a transient episode of chest pressure and full body warmth, not resolved. She denies recent fevers, chills, headache or dizziness. She denies recent nausea, vomit, diarrhea or constipation. She denies recent dysuria, frequency, urgency or hematuria. She denies recent shortness of breath. Allergies: codeine, promethazine HCl Past surgical history: AV fistula Primary Care Physician: Dr. Lutz - Physicial Exam PE: 06/25/18 20:00 GENERAL: Well-appearing, well-nourished. No apparent distress. HEENT: Normocephalic, atraumatic. PERRL, EOM intact. CARDIOVASCULAR: +Systolic murmur. PULMONARY: Clear to auscultation bilaterally. ABDOMEN: Soft, non-distended, non-tender. EXTREMITIES: +LUE AV fistula with thrill. Normal ROM in all four extremities. SKIN: Warm, dry. No rash NEUROLOGICAL: No focal neurological deficits. <Jaqueline Stokes - Last Filed: 06/25/18 19:46> - Resident Resident Name: Shelby Santos - ED Attending Attestation I have performed the following: I have examined & evaluated the patient, The case was reviewed & discussed with the resident, I agree w/resident's findings & plan, Exceptions are as noted - Medical Decision Making 06/25/18 19:31 dialysis //Sat c/o "feeling weak " /denies sob,[place],dizziness,abd ,vomiting,no fever 06/25/18 20:29 ekg is nsr without any evidence of ischemia first troponin is negative cbc unremarkable chemistries elevated bun/cr but this pt is ESRD and has dialysis tomorrow 06/25/18 20:38 plan second trop ,if negative will d/c home <Lisa Stephens - Last Filed: 06/25/18 20:38> Attestations - Attestations 06/25/18 20:01 Documentation prepared by Jaqueline Stokes, acting as medical social worker for Lisa Stephens MD. <Jaqueline Stokes - Last Filed: 06/25/18 19:46>
[2018-06-25 20:03] LABS: ALBUMIN 3.8 g/dl (3.4-5.0); ALK PHOS 71 U/L (45-117); ANION GAP 12 MMOL/L (8-16); BILIRUBIN,TOTAL 0.4 mg/dL (0.2-1); BLOOD UREA NITROGEN 59 mg/dL (7-18); CALCIUM 8.6 mg/dL (8.5-10.1); CHLORIDE 96 mmol/L (98-107); CO2 25 mmol/L (21-32); GLUCOSE,RANDOM 287 mg/dL (74-106); SGOT/AST 22 U/L (15-37); SGPT/ALT 20 U/L (13-61); SODIUM 133 mmol/L (136-145); TOT PROT 8.7 g/dl (6.4-8.2)
[2018-06-25 21:12] VITALS: BP 132/68; PULSE 82
--- NOTE | 2018-06-26 14:26 | EKG ---
Test Reason : Blood Pressure : / mmHG Vent. Rate : 084 BPM Atrial Rate : 084 BPM P-R Int : 194 ms QRS Dur : 100 ms QT Int : 424 ms P-R-T Axes : 014 014 056 degrees QTc Int : 501 ms NORMAL SINUS RHYTHM PROLONGED QT ABNORMAL ECG WHEN COMPARED WITH ECG OF 07-MAR-2018 17:21, NO SIGNIFICANT CHANGE WAS FOUND Confirmed by MD Cintron Edward ([id number]) on 06/26/2018 2:26:01 PM Referred By: Confirmed By:Hemant Cintron MD
== END 2018-06-25 22:00 | disposition home or self-care (01) ==
LOC: JER 17:12
DX: R53.83 Other fatigue (principal); I12.0 Hypertensive chronic kidney disease with stage 5 chronic kidney disease or end stage renal disease; E11.22 Type 2 diabetes mellitus with diabetic chronic kidney disease; N18.6 End stage renal disease; N17.8 Other acute kidney failure; Z99.2 Dependence on renal dialysis; Z79.4 Long term (current) use of insulin; E78.00 Pure hypercholesterolemia, unspecified; F03.90 Unspecified dementia, unspecified severity, without behavioral disturbance, psychotic disturbance, mood disturbance, and anxiety; I69.854 Hemiplegia and hemiparesis following other cerebrovascular disease affecting left non-dominant side; E83.51 Hypocalcemia
CPT/HCPCS: 36415; 71045-TC-FY; 80053; 84484; 85025; 93005; 93010; 99283-25; J7030

== ENCOUNTER 2018-11-06 06:13 | Emergency (ER) | payer OTHER | END 2018-11-06 11:38 | disposition home or self-care (01) | LOC: JER 06:13 ==

== ENCOUNTER 2018-11-07 18:47 | Inpatient (IN) | payer OTHER ==
--- NOTE | 2018-11-07 18:57 | PDOC ---
History of Present Illness - General Chief Complaint: Weakness Stated Complaint: Weakness Time Seen by Provider: 11/07/18 18:57 History Source: Patient, Family Exam Limitations: No Limitations - History of Present Illness Initial Comments: Pt is a 68 yo F, with PMH of HTN, HLD, CVA, ESRD (T/R/Sat), b/l cataracts, who is presenting with worsening L eye swelling, and generalized weakness. Pt states for the past 2-3 days, she has felt "weak all over", with multiple falls to the ground today after "feeling like my legs couldn't hold me". Pt denies any LOC or hitting her head, and denies any symptoms prior to the fall. Pt states she has also had nausea/vomiting and diarrhea over the past 3 days, but denies those symptoms now. Pt no longer makes urine. Pt was seen at [facility] and saw ophthalmology for the swelling of her eye, and was prescribed valacyclovir PO for herpes zoster (V1 with dendrites). She endorses floaters. Pt denies any fevers/chills, headache, vision changes, syncope, chest pain, palpitations, SOB , abdominal pain, urinary symptoms, or leg swelling. Allergies: NKDA PCP: Loern Lutz Renal: Julienne Corrales Social: Pt denies any cigarette, alcohol, or drug use. Pt denies any recent travel or sick contacts. Surgical: no relevant history. Family: no relevant history. 11/07/18 20:02 Past History - Travel Traveled outside of the country in the last 30 days: No Close contact w/someone who was outside of country & ill: No - Past Medical History Allergies/Adverse Reactions: Allergies Allergy/AdvReac Type Severity Reaction Status Date / Time codeine Allergy Verified 11/07/18 18:49 promethazine HCl Allergy Verified 11/07/18 18:49 [From Phenergan] Home Medications: Ambulatory Orders Acetaminophen [Tylenol Extra Strength] 500 mg PO PRN PRN 11/07/18 Aspirin [ASA -] 81 mg PO DAILY 11/07/18 Atorvastatin Ca [Lipitor] 40 mg PO HS 11/07/18 Carvedilol [Coreg -] 6.25 mg PO BID 11/07/18 Donepezil HCl [Aricept -] 10 mg PO DAILY 11/07/18 Losartan Potassium [Cozaar -] 25 mg PO DAILY 11/07/18 Memantine HCl [Namenda -] 10 mg PO BID 11/07/18 Nifedipine [Procardia Xl] 90 mg PO DAILY 11/07/18 Valacyclovir HCl [Valtrex -] 500 mg PO BID 11/07/18 Anemia: Yes Asthma: No Cancer: No Cardiac Disorders: Yes (angina) CVA: Yes (L sided weakness) COPD: No CHF: No DVT: No Dementia: Yes (AMS) Diabetes: Yes Dialysis: Yes () GI Disorders: Yes (GERD) Disorders: No HTN: Yes Hypercholesterolemia: Yes Liver Disease: No Seizures: Yes Thyroid Disease: No - Surgical History Abdominal Surgery: Yes Appendectomy: Yes Neurologic Surgery: No - Immunization History Immunization Up to Date: Yes - Suicide/Smoking/Psychosocial Hx Smoking Status: No Smoking History: Never smoked Have you smoked in the past 12 months: No Number of Cigarettes Smoked Daily: 0 Hx Alcohol Use: No Drug/Substance Use Hx: No Substance Use Type: None Hx Substance Use Treatment: No Review of Systems - Review of Systems Able to Perform ROS?: Yes Is the patient limited Frisian proficient: No Constitutional: Yes: Loss of Appetite, Malaise, Weakness, Weight Stable. No: Chills, Diaphoresis, Fever HEENTM: Yes: See HPI, Eye Pain, Cataracts. No: Blurred Vision, Recent change in vision, Double Vision, Nose Pain, Nose Congestion, Throat Pain, Throat Swelling, Difficulty Swallowing Respiratory: No: Cough, Orthopnea, Shortness of Breath Cardiac (ROS): No: Chest Pain, Edema, Irregular Heart Rate, Lightheadedness, Palpitations, Syncope, Chest Tightness ABD/GI: Yes: Diarrhea, Nausea, Poor Appetite, Poor Fluid Intake, Vomiting. No: Constipated, Rectal Bleeding, Abdominal cramping, Tarry Stools : No: Burning, Dysuria, Discharge, Frequency, Hematuria, Pain Musculoskeletal: Yes: Muscle Weakness. No: Back Pain, Joint Pain, Muscle Pain Integumentary: No: Rash Neurological: No: Headache, Numbness, Weakness, Unsteady Gait, Dizziness Psychiatric: No: Sleep Pattern Change, Change in Appetite Endocrine: No: Increased Urine, Change in Weight Hematologic/Lymphatic: No: Anemia, Blood Clots, Easy Bleeding, Easy Bruising All Other Systems: Reviewed and Negative *Physical Exam - Physical Exam Comments: HTN (systolic 220), pt afebrile. Pt in NAD, normal body habitus. Pt alert and oriented x3. 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 Cerebellar exam WNL No midline spinal tenderness, step-offs, or crepitus. AVF in place, L AC, palpable thrill, no erythema or drainage Head normocephalic, atraumatic. Eyes PERRLA, EOMI. L conjunctival redness with small amount of purulent drainage. Vesicles on forehead with edema around L eye. Oropharynx without erythema or exudates, no LAD b/l. No nasal congestion, hearing intact. Clear heart sounds, S1/S2, no JVD, b/l pedal edema, or heart murmur. Clear lung sounds, no respiratory distress, wheezes, crackles, or accessory muscle use. No abdominal or CVA tenderness to palpation, no rebound, no guarding. Abdomen soft, non-distended, and with normoactive bowel sounds. Skin without jaundice or rash. 11/07/18 20:07 ED Treatment Course - LABORATORY CBC & Chemistry Diagram: 11/07/18 19:33 11/07/18 19:33 Medical Decision Making - Medical Decision Making Pt was seen at bedside, also will be seen by attending Dr. Kelley. Pt presenting with worsening eye swelling and generalized weakness. Evaluate for toxic/metabolic vs disseminated herpes zoster vs ACS vs infectious. No meningeal signs on exam. Pt had stopped taking nifedipine ER and losartan, will provide for BP control. Provided 700 mg IV acyclovir, topical polymyxin eye ointment, and PO nifedipine (home dose) for improvement of BP control and abx/anti-viral coverage. Will continue to reassess pt and monitor for symptomatic improvement. 11/07/18 20:14 ECG: NSR, intervals WNL. No TWIs or significant ST segment changes. No significant changes from prior ECG (06/25/2018). CBC WNL 11/07/18 21:30 CMP WNL for pt baseline -- will place pt in dialysis bed for dialysis tomorrow Head CT and orbit without any acute pathology (edema of L eye only, no septal involvement) Paging hospitalist team for admission. 11/07/18 22:17 Pt accepted to hospitalist team (Dr. Swanson). 11/07/18 23:13 *DC/Admit/Observation/Transfer Diagnosis at time of Disposition: Herpes zoster ophthalmicus of left eye, ESRD (end stage renal disease) on dialysis Fatigue Qualifiers: Fatigue type: unspecified Qualified Code(s): R53.83 - Other fatigue - Discharge Dispostion Condition at time of disposition: Stable Decision to Admit order: Yes - Referrals - Patient Instructions - Post Discharge Activity
[2018-11-07 19:01] VITALS: BMI 27.4
[2018-11-07] MEDS ORDERED: LOSARTAN POTASSIUM 25 MG TABLET PO ONE (19:40)
[2018-11-07] MEDS ORDERED: ACYCLOVIR INJECTION 700 MG in DEXTROSE 5%-WATER - 100 ML IVPB ONE (19:47)
[2018-11-07 19:57] LABS: BASO % 1.6 % (0-2.0); EOS % 2.1 % (0-4.5); HEMATOCRIT 35.5 % (32.4-45.2); HEMOGLOBIN 11.7 GM/dL (10.7-15.3); LYMPH % 18.9 % (8-40); MCH 30.8 pg (25.7-33.7); MCHC 33.1 g/dl (32.0-36.0); MEAN CELL VOLUME 93.1 fl (80-96); MEAN PLT VOLUME 8.6 fl (7.5-11.1); MONO % 16.3 % (3.8-10.2); NEUT % 61.1 % (42.8-82.8); PLATELET COUNT 195 K/MM3 (134-434); RBC 3.81 M/mm3 (3.60-5.2); RDW 13.6 % (11.6-15.6); WHITE BLOOD COUNT 5.2 K/mm3 (4.0-10.0)
[2018-11-07] MEDS ORDERED: NIFEdipine E.R. 30 MG TABLET (FP) ONE (19:58)
[2018-11-07] MEDS ORDERED: NIFEdipine E.R. 30 MG TABLET (FP) PO SCH (20:00)
[2018-11-07] MEDS: NIFEdipine E.R. 90 MG TABLET (FP) PO SCH ×2 (20:01)
[2018-11-07 20:06] LABS: INR 0.99 (0.83-1.09); PROTHROMBIN TIME (PATIENT) 11.7 SEC (9.7-13.0)
[2018-11-07 20:23] LABS: ALBUMIN 3.8 g/dl (3.4-5.0); BILIRUBIN,TOTAL 0.5 mg/dL (0.2-1); BLOOD UREA NITROGEN 32.5 mg/dL (7-18); CALCIUM 9.2 mg/dL (8.5-10.1); MAGNESIUM 2.1 mg/dL (1.8-2.4); PHOSPHOROUS 5.4 mg/dL (2.5-4.9); POTASSIUM 5.9 mmol/L (3.5-5.1); TOT PROT 8.7 g/dl (6.4-8.2)
[2018-11-07 20:27] LABS: CREATININE 7.7 mg/dL (0.55-1.3)
[2018-11-07] MEDS ORDERED: POLYMYXIN B SULFATE/TMP 10 ML OPHTHALMIC SOLUTION OU STA (20:27)
--- NOTE | 2018-11-07 20:28 | PDOC ---
Documentation entered by Hayden Hughes SCRIBE, acting as scribe for David Cabrera MD. David Cabrera MD: This documentation has been prepared by the Ellen benito Elijah, SCRIBE, under my direction and personally reviewed by me in its entirety. I confirm that the documentation accurately reflects all work, treatment, procedures, and medical decision making performed by me. Attending Attestation - Resident Resident Name: Liset Suazo - ED Attending Attestation I have performed the following: I have examined & evaluated the patient, The case was reviewed & discussed with the resident, I agree w/resident's findings & plan - HPI HPI: 11/07/18 19:47 Patient is a 68 year old female with a significant past medical history of ESRD (/Mon/Mon 2 failed renal transplants , ), HTN, CVA (on plavix), HLD, hypocalcemia, and DM who presents to the ED with Generalized Weakness lasting for x2-3 days. Patient associates nausea, vomiting and diarrhea each day and notes that she has fell secondary to her weakness. Patient was seen in the ED yesterday for evaluation of swelling and tearing of the eyes. Allergies: Codeine, Promethazine HCL PCP: Dr. Lutz - Physicial Exam PE: 11/07/18 20:23 Patient is alert, frail-appearing, no distress normocephalic, atraumatic b/l cataract, + edema with numerous vesicles to the left periorbital area with purulent occular discharge no meningismus cta rrr no focal deficits - Medical Decision Making 11/07/18 20:26 Patient is 68-year-old female with multiple comorbidities, history of end-stage renal disease on hemodialysis who presents with generalized weakness, history of frequent falls and worsening left. Orbital erythema/rash which was previously diagnosed as herpes zoster and treated with by mouth valacyclovir. Patient is noted to be hypertensive without focal neurological deficits. Vesicular rashes noted to the V1 dermatomal distribution on the left with purulent ocular discharge. Will obtain CT of head/orbits to rule out subdural hematoma given frequent falls. Will treat with IV acyclovir and will treat with topical ocular antibiotics for suspected superinfected bacterial conjunctivitis. 11/08/18 01:15 pt with unwitnessed fall in the ed. no overt evidence of head injury/ will obtain ct head.
[2018-11-07 20:33] LABS: PLATELET ESTIMATE ADEQUATE
[2018-11-08] MEDS ORDERED: INSULIN REGULAR HUMAN 100 UNITS/ML *VIAL SQ ONE (00:07)
--- NOTE | 2018-11-08 00:26 | HP ---
CHIEF COMPLAINT: weakness PCP: Loren Lutz HISTORY OF PRESENT ILLNESS: 68 y/o F, pmh of htn, dm type 2, hld, cva, esrd on dialysis via left arm fistula presents to the ED c/o of eye infection and weakness of one day duration associated with nausea, nbnb vomiting and nonbloody diarrhea. Pt reports that she was in the hospital yesterday for a herpes zoster eye infection but was sent to the ophthalmologists office, who prescribed her valacyclovir and polymixin eye drops. Her symptoms began few hours after taking her antiviral and has persisted since. She reports she does dialysis // Mon and her last dialysis was yesterday afternoon. Currently, she no longer has n/v/d but still c/o of weakness and eye discharge and pain. In the ED, pt was hypertensive at 218/103 which was controlled after administration of losartan and nifedipine. Pt is a poor historian and has multiple admissions for AMS and confusion. In the past dr. Correia has suggested hypertensive encephalopathy which could be the cause of pt's worsening cognition. Denies f/c/n/v/d/ sob, chest pain, facial pain or numbness, paresthesia, abdominal pain. ER course was notable for: (1)CT head- negative for acute changes (2)CT orbit: left periorbital soft tissue edema (3)losartan and nifedipine given for elevated bp- 218/103 Recent Travel: denies PAST MEDICAL HISTORY: HTN, HLD, CVA, ESRD (T/R/Sat), b/l cataracts PAST SURGICAL HISTORY: renal transplant- 1st transplant failed after 5 years, still in the body. 2nd attempt- donor kidney failed and was never transplanted CAD s/p Cath- Dr. Mcleod as per chart Social History: Smoking: denies Alcohol: denies Drugs: denies Family History: denies Allergies codeine Allergy (Verified 11/07/18 18:49) promethazine HCl [From Phenergan] Allergy (Verified 11/07/18 18:49) ANAPHYLAXIS HOME MEDICATIONS: Home Medications Medication Instructions Recorded Acetaminophen [Tylenol Extra 500 mg PO PRN PRN 11/07/18 Strength] Aspirin [ASA -] 81 mg PO DAILY 11/07/18 Atorvastatin Ca [Lipitor] 40 mg PO HS 11/07/18 Carvedilol [Coreg -] 6.25 mg PO BID 11/07/18 Donepezil HCl [Aricept -] 10 mg PO DAILY 11/07/18 Losartan Potassium [Cozaar -] 25 mg PO DAILY 11/07/18 Memantine HCl [Namenda -] 10 mg PO BID 11/07/18 Nifedipine [Procardia Xl] 90 mg PO DAILY 11/07/18 Valacyclovir HCl [Valtrex -] 500 mg PO BID 11/07/18 REVIEW OF SYSTEMS CONSTITUTIONAL: Admits: generalized weakness Absent: fever, chills, diaphoresis,, weight change HEENT: admits: eye pain, eye discharge and redness Absent: ear pain, visual changes CARDIOVASCULAR: Absent: chest pain, syncope, palpitations, irregular heart rate, lightheadedness , RESPIRATORY: Absent: cough, shortness of breath, dyspnea with exertion, orthopnea, wheezing, stridor, hemoptysis GASTROINTESTINAL: Absent: abdominal pain, abdominal distension, nausea, vomiting, diarrhea, constipation, melena, GENITOURINARY: Absent: dysuria, frequency, hematuria, flank pain, genital pain MUSCULOSKELETAL: Absent: myalgia, arthralgia, back pain, neck pain SKIN: Admits: b/l leg itching Absent: rash, pallor HEMATOLOGIC/IMMUNOLOGIC: Absent: lymphadenopathy, frequent infections ENDOCRINE: Absent: unexplained weight gain/ loss, NEUROLOGIC: Absent: headache, paresthesias, dizziness, unsteady gait, seizure, mental status changes, bladder or bowel incontinence PSYCHIATRIC: Absent: anxiety, PHYSICAL EXAMINATION Vital Signs - 24 hr Last Vital Signs Temp Pulse Resp BP Pulse Ox 98.1 F 78 18 218/103 H 98 11/07/18 18:56 11/07/18 20:00 11/07/18 20:00 11/07/18 20:00 11/07/18 20:00 Recent BP 153/76 GENERAL: Awake, alert, and fully oriented, in mild distress and lethargic EYES: Left eye discharge- dry and crusted, redness, mild superficial swelling and difficult to keep open. Pupils equal, round and reactive to light, extraocular movements intact, EARS, NOSE, THROAT: Vesicular rash on the left forehead present. Oropharynx clear without exudates. Moist mucous membranes. NECK: Normal range of motion, supple without lymphadenopathy, JVD, or masses. LUNGS: Breath sounds equal, clear to auscultation bilaterally. No wheezes, and no crackles. No accessory muscle use. HEART: Regular rate and rhythm, normal S1 and S2 without murmur, rub or gallop. ABDOMEN: Soft, nontender, not distended, normoactive bowel sounds, no guarding, no rebound, no masses. No hepatomegaly or splenomegaly. MUSCULOSKELETAL: No CVA tenderness. UPPER EXTREMITIES: 2+ pulses, warm, well-perfused. No cyanosis. No peripheral edema. LOWER EXTREMITIES: 2+ pulses, warm, well-perfused. No peripheral edema. NEUROLOGICAL: Normal speech. PSYCHIATRIC: Cooperative. Good eye contact. Appropriate mood and affect. Laboratory Results - last 24 hr CBC, BMP 11/07/18 19:33 11/07/18 19:33 ASSESSMENT/PLAN: 68 y/o F, pmh of htn, dm type 2, hld, cva, esrd on dialysis via left arm fistula presents to the ED c/o of eye infection and weakness of one day duration associated with nausea, nbnb vomiting and nonbloody diarrhea likely 2/ 2 to medication adverse reaction leading to dehydration in dialysis pt, worsening weakness #Herpes Ophthalmicus PE vesicular rash on forehead, crusted discharge and redness Started pt on Acyclovir 700mg Q8H continue daily eye exam continue home med- polymixin consult ID- Dr. Terrazas #Weakness ESRD pt Dialysis in the am TSH ordered Nephro consulted- Dr. Campoverde #GI Distress symptoms have resolved right now continue monitoring symptomatic tx #DM BGM ISS #HTN continue home meds- losartan and nifedipine Monitor BP- now 153/76 #HLD continue home meds- atorvastatin #DVT ppx heparin sq FEN: sodium/diabetic diet Dispo: f/u w/ ID and Nephro in am, dialysis in the morning, continue monitor BP ATTENDING PHYSICIAN STATEMENT I saw and evaluated the patient. I reviewed the resident's note and discussed the case with the resident. I agree with the resident's findings and plan as documented. SUBJECTIVE: OBJECTIVE: ASSESSMENT AND PLAN:
[2018-11-08] MEDS ORDERED: SODIUM CHLORIDE 1,000 ML IV SCH ×2 (00:45→02:51)
[2018-11-08] MEDS: POLYMYXIN B SULFATE/TMP 10 ML OPHTHALMIC SOLUTION OS SCH ×2 (02:10→12:49)
--- NOTE | 2018-11-08 03:11 | PN ---
Teaching Attending Note ATTENDING PHYSICIAN STATEMENT I saw and evaluated the patient. I reviewed the resident's note and discussed the case with the resident. I agree with the resident's findings and plan as documented. Seen and examined; please refer to resident note for further historical information. History limited by patient beig poor historian (documented history of dementia on medication, multiple admits for AMS, etc.). She was unable to tolerate her PO medications that were Rx yesterday for opthalmic zoster (seen in optho clinic as documented in yesterday's ER note); it was felt that she did not require admission at that juncture. There was concern for worsening swelling over the eye and edema is noted on orbital CT (no prior studies to compare). Patient denies that the swelling is worse but as stated is a limited historian; will confirm with family as they have left by the time I assessed the patient. She had no pain with eye movement, was able to see the appropriate # of fingers out of all 4 quadrants b/l, and didn't have any excess crusting or drainage. She is able to close and open her eye without difficulty. CT head without abnormalities. Was intermittently owning (has been documented with AMS, also associated with HTN that was present with HTN urgency vs. emergency on presentation). HD yday with Dr. Valenzuela VS, labs, imaging reviewed NAD, AAO, resting in bed NC AT EOMI PERRLA RRR s1/2 no mgr NT ND +BS CN2-12 wnl without fnd; intermittently got place wrong (hospital then home then didn't know); moves all 4 ext with no deficiencies in sensorium apparent. Follows instructions. No pain on eye movement. Not agitated CT head and orbit reviewed Prior ER visit reviewed Echo 10/2017 reviewed; LVEF wnl, RVSP 30-40 with suggested LV relaxation impairment Prior EEGs reviewed Prior Neurology Consultation reviewed (Dr. Correia 2018; likely hypertensive encephalopathy with multi-infarct dementia likely causing worsening cognitive dysfunction) Prior CV consultations reviewed (Dr. Moctezuma; last transferred for cardiac cath 2017) Prior stress test reviewed ASSESSMENT AND PLAN: Patient is a 68 y/o female presenting to the ER with multiple issues; a) continued optic zoster on valcyclovir (? not tolerating PO but currently asx), b ) nausea/vomiting/diarrhea, c) AMS d) Hypertensive Emergency causing hypertensive encephalopathy (resolved) # Optic Zoster on valtrex, not tolerating PO (given IV acyclovir, followup when to convert, consulting optho, followup imaging) # Nausea/Vomiting/Diarrhea (none observed here, lactoferrin and fecal wbc pending0 # Hypertensive emergency (resolved with home meds, likely contributing to hypertensive encephalopahty as documented by Dr. Shaikh on prior admits0 # ESRD on HD (nephrology consulted, monitor is/os and BMP, renal adjustment to meds) # Dementia with sundowning, repeated episodes of AMS # HyperK
[2018-11-08] MEDS ORDERED: LORazepam 2 MG/ML SDV VIAL IVPUSH ONE (03:32)
[2018-11-08] MEDS ORDERED: ACYCLOVIR INJECTION 700 MG in DEXTROSE 5%-WATER - 100 ML IVPB SCH (04:00)
[2018-11-08] MEDS ORDERED: LORazepam 2 MG/ML SDV VIAL ONE (04:41)
[2018-11-08] MEDS ORDERED: HEPARIN NA (PORCINE) 5,000 UNITS/ML 1ML VIAL ONE ×2 (05:50→08:06)
[2018-11-08] MEDS: INSULIN SLIDING SCALE (NOVOLOG) 1 VIAL SQ SCH ×2 (06:12→23:59)
[2018-11-08] MEDS: HEPARIN NA (PORCINE) 5,000 UNITS/ML 1ML VIAL SQ SCH ×2 (06:12→23:57)
[2018-11-08] MEDS ORDERED: ASPIRIN 81 MG CHEWABLE TABLETS ONE (08:05)
[2018-11-08] MEDS ORDERED: NIFEdipine E.R. 30 MG TABLET (FP) ONE (08:06)
[2018-11-08] MEDS ORDERED: CARVEDILOL 3.125 MG TABLET (FP) ONE (08:06)
[2018-11-08] MEDS ORDERED: LOSARTAN POTASSIUM 50 MG TABLET (FP) ONE (08:06)
[2018-11-08] MEDS ORDERED: valACYclovir HCL 500 MG TABLET (FP) ONE (08:46)
[2018-11-08 09:29] LABS: BASO % 1.3 % (0-2.0); EOS % 2.3 % (0-4.5); HEMATOCRIT 34.6 % (32.4-45.2); HEMOGLOBIN 11.6 GM/dL (10.7-15.3); LYMPH % 18.9 % (8-40); MCH 31.2 pg (25.7-33.7); MCHC 33.5 g/dl (32.0-36.0); MEAN CELL VOLUME 93.2 fl (80-96); MONO % 11.6 % (3.8-10.2); NEUT % 65.9 % (42.8-82.8); PLATELET COUNT 196 K/MM3 (134-434); RBC 3.72 M/mm3 (3.60-5.2); RDW 13.4 % (11.6-15.6); WHITE BLOOD COUNT 6.1 K/mm3 (4.0-10.0)
[2018-11-08] MEDS ORDERED: PT OWN MED DRAWER 7, Y5N ONE ×2 (09:31→14:51)
[2018-11-08] MEDS ORDERED: valACYclovir HCL 500 MG TABLET (FP) PO SCH (10:00)
[2018-11-08 10:20] LABS: ALBUMIN 3.6 g/dl (3.4-5.0); BILIRUBIN,TOTAL 0.4 mg/dL (0.2-1); BLOOD UREA NITROGEN 41.7 mg/dL (7-18); POTASSIUM 4.8 mmol/L (3.5-5.1); TOT PROT 8.5 g/dl (6.4-8.2)
[2018-11-08 10:35] LABS: CREATININE 8.7 mg/dL (0.55-1.3)
--- NOTE | 2018-11-08 10:59 | PN ---
Progress Note (short form) - Note Progress Note: ID CONSULT DICTATED HERPES ZOSTER L V1 DISTRIBUTION ? HERPES OPHTHALMICUS ESRD ACV, ADJUSTED FOR ESRD OPHTHO EVAL
[2018-11-08] MEDS ORDERED: ACYCLOVIR INJECTION 350 MG in DEXTROSE 5%-WATER - 100 ML IVPB SCH (11:00)
--- NOTE | 2018-11-08 11:37 | EKG ---
Test Reason : Blood Pressure : / mmHG Vent. Rate : 077 BPM Atrial Rate : 077 BPM P-R Int : 182 ms QRS Dur : 102 ms QT Int : 426 ms P-R-T Axes : 024 033 066 degrees QTc Int : 482 ms NORMAL SINUS RHYTHM NORMAL ECG WHEN COMPARED WITH ECG OF 25-JUN-2018 17:47, NO SIGNIFICANT CHANGE WAS FOUND Confirmed by CARLI JIMENEZ MD ([id number]) on 11/08/2018 11:37:06 AM Referred By: Confirmed By:CARLI JIMENEZ MD
[2018-11-08] MEDS: MEMANTINE HCL 10 MG TABLET (FP) PO SCH ×2 (12:49→23:59)
[2018-11-08] MEDS: CARVEDILOL 6.25 MG TABLET (FP) PO SCH ×2 (12:49→23:58)
[2018-11-08] MEDS: LOSARTAN POTASSIUM 25 MG TABLET PO SCH (12:49)
[2018-11-08] MEDS: ASPIRIN 81 MG CHEWABLE TABLETS PO SCH (12:49)
[2018-11-08] MEDS: NIFEdipine E.R. 90 MG TABLET (FP) PO SCH (12:51)
--- NOTE | 2018-11-08 13:19 | PN ---
Teaching Attending Note Name of Resident: Shelby Cervantes ATTENDING PHYSICIAN STATEMENT I saw and evaluated the patient. I reviewed the resident's note and discussed the case with the resident. I agree with the resident's findings and plan as documented. SUBJECTIVE:lethargic at the moment and slow to respond but offer no complaints, was agitated early this AM and was given ativan OBJECTIVE: Last Vital Signs Temp Pulse Resp BP Pulse Ox 97.9 F 96 H 18 148/78 98 11/08/18 05:31 11/08/18 05:31 11/08/18 05:31 11/08/18 05:31 11/08/18 05:30 General lethargic, easily arrousable to verbal stimuli HEENT L eye periorbial swelling and erythema with vessicles in the V1 distribution, green custing noted at the edges. injected conjunctiva. R eye clear CV S1 s2 RRR +murmur Lungs CTA B/L No wheezing/rales/rhonchi Abdomen soft NT/ND extremiteis +LUE palpable thrill Neuro due to mental status does not follow all commands. follow some commands, move all extremities ASSESSMENT AND PLAN: 68yo F wtih PMH DM, ESRD on HD (TTS), CVA, and recently diagnosed zoster opthalmicus which she was started on valtrex and vomited and developed diarrhea. Became agitated last night and received ativan which she subsequently fell afterwards. 1. Acute metabolic encephalopathy- likely due to ativan administration. as my initial encounter and then subsequent 20 mins later there was improvement in neurological status. head CT x2 negative for acute disease. frequent neurochecks 2. Nausea and vomiting- could be due to valtrex intolerance vs HTN urgency. no reports here in the Er. will cont with gentle hydration until mental status improves and then can trial diet 3. Zoster opthalmicus- switched to acyclovir IV with plan to swtich to po when able to. monitor for signs of vessicles crusting. place on contact precautions. ID and optho consulted 4. HTN urgency- home meds re-iniaited. unclear if doses were missed. can ttirate as needed 5. hyponatremia- due to dehydration from vomiting. now resolved 6. Hyperkalemia- resolved 7. Mechanical fall- possible due to ativan dose. PT eval 8. ESRD on HD- tolerated HD on antoine. resume normal schedule. nephro on board 9. DM- hold oral agents. Iss and bgm 10. CVA 11. DVT ppx- hep sq
[2018-11-08] MEDS ORDERED: ACYCLOVIR 800 MG TABLET PO SCH (14:00)
--- NOTE | 2018-11-08 14:44 | PN ---
Physical Exam: SUBJECTIVE: Patient seen and examined. Pt verbalizing 1 word sentences. Speech & reaction time was slow this morning, however improving gradually; initial assessment was done after Ativan was administered for agitation. OBJECTIVE: Vital Signs Period Temp Pulse Resp BP Sys/Travis Pulse Ox Last 24 Hr 97.6 F-98.1 F 78-99 18-20 143-220/70-103 96-100 GENERAL: The patient is awake, alert, could not assess orientation today d/t minimal verbalizations. HEAD: L forehead herpetic lesion in V1 distribution EYES: L sided periorbital edema with yellow/ green crusting present. Conjunctival injection present to left orbit. Right eye: no conj injection, no icterus, no edema. ENT: Oropharynx clear without exudates, moist mucous membranes. NECK: No lymphadenopathy LUNGS: CTABL, no wheezes, no crackles, no accessory muscle use. HEART: Regular rate and rhythm, S1, S2 without murmurs ABDOMEN: Soft, nontender, nondistended, normoactive bowel sounds, no guarding EXTREMITIES: 2+ pulses, warm, well-perfused, no edema. HD fistula intact to LUE ; no signs of infection surrounding fistula site Laboratory Results - last 24 hr 11/07/18 11/07/18 11/07/18 19:33 19:33 19:33 WBC 5.2 RBC 3.81 Hgb 11.7 Hct 35.5 MCV 93.1 MCH 30.8 MCHC 33.1 RDW 13.6 Plt Count 195 MPV 8.6 Absolute Neuts (auto) 3.2 Total Counted 100 Neutrophils % 61.1 Neutrophils % (Manual) 64.0 Lymphocytes % 18.9 Lymphocytes % (Manual) 18.0 D Monocytes % 16.3 H D Monocytes % (Manual) 16 H D Eosinophils % 2.1 D Eosinophils % (Manual) 2.0 D Basophils % 1.6 Nucleated RBC % 0 Platelet Estimate Adequate Platelet Comment No clumping noted PT with INR INR Sodium 130 L Potassium 5.9 H Chloride 96 L Carbon Dioxide 23 Anion Gap 11 BUN 32.5 H Creatinine 7.7 H* Est GFR (CKD-EPI)AfAm 5.76 Est GFR (CKD-EPI)NonAf 4.97 POC Glucometer Random Glucose 220 H Calcium 9.2 Phosphorus 5.4 H Magnesium 2.1 Total Bilirubin 0.5 AST 19 ALT 18 Alkaline Phosphatase 64 Creatine Kinase 58 Troponin I < 0.02 Total Protein 8.7 H Albumin 3.8 TSH 11/07/18 11/08/18 11/08/18 19:33 00:30 06:06 WBC RBC Hgb Hct MCV MCH MCHC RDW Plt Count MPV Absolute Neuts (auto) Total Counted Neutrophils % Neutrophils % (Manual) Lymphocytes % Lymphocytes % (Manual) Monocytes % Monocytes % (Manual) Eosinophils % Eosinophils % (Manual) Basophils % Nucleated RBC % Platelet Estimate Platelet Comment PT with INR 11.70 INR 0.99 Sodium Potassium Chloride Carbon Dioxide Anion Gap BUN Creatinine Est GFR (CKD-EPI)AfAm Est GFR (CKD-EPI)NonAf POC Glucometer 248 177 Random Glucose Calcium Phosphorus Magnesium Total Bilirubin AST ALT Alkaline Phosphatase Creatine Kinase Troponin I Total Protein Albumin [facility] 11/08/18 11/08/18 11/08/18 08:50 08:50 13:55 WBC 6.1 RBC 3.72 Hgb 11.6 Hct 34.6 MCV 93.2 MCH 31.2 MCHC 33.5 RDW 13.4 Plt Count 196 MPV 8.0 Absolute Neuts (auto) 4.0 Total Counted Neutrophils % 65.9 Neutrophils % (Manual) Lymphocytes % 18.9 Lymphocytes % (Manual) Monocytes % 11.6 H Monocytes % (Manual) Eosinophils % 2.3 Eosinophils % (Manual) Basophils % 1.3 Nucleated RBC % 0 Platelet Estimate Platelet Comment PT with INR INR Sodium 132 L Potassium 4.8 Chloride 98 Carbon Dioxide 22 Anion Gap 12 BUN 41.7 H Creatinine 8.7 H* Est GFR (CKD-EPI)AfAm 4.97 Est GFR (CKD-EPI)NonAf 4.29 POC Glucometer 77 Random Glucose 138 H Calcium 9.0 Phosphorus Magnesium Total Bilirubin 0.4 AST 17 ALT 15 Alkaline Phosphatase 65 Creatine Kinase Troponin I Total Protein 8.5 H Albumin 3.6 TSH 2.41 Active Medications Generic Name Dose Route Start Last Admin Trade Name Freq PRN Reason Stop Dose Admin Aspirin 81 mg 11/08/18 10:00 11/08/18 12:49 Asa - PO Not Given DAILY [facility] Atorvastatin Calcium 40 mg 11/08/18 22:00 Lipitor - PO HS [facility] Carvedilol 6.25 mg 11/08/18 10:00 11/08/18 12:49 Coreg - PO Not Given BID [facility] Donepezil HCl 10 mg 11/08/18 22:00 Aricept - PO HS [facility] Heparin Sodium (Porcine) 5,000 unit 11/08/18 06:00 11/08/18 06:12 Heparin - SQ 5,000 unit TID [facility] Administration Sodium Chloride 1,000 mls @ 32 mls/hr 11/08/18 02:51 11/08/18 03:00 Normal Saline - IV 32 mls/hr ASDIR [facility] Administration Sodium Chloride 250 mls @ 3,000 mls/hr 11/08/18 08:05 Normal Saline - IV 11/09/18 08:05 PRN PRN Hypotension during Dialysis Acyclovir 350 mg/ Dextrose 107 mls @ 107 mls/hr 11/08/18 11:00 IVPB Q24H [facility] Insulin Aspart 1 vial 11/08/18 07:00 11/08/18 06:12 Novolog Vial Sliding Scale - SQ 2 unit ACHS [facility] Administration Protocol Losartan Potassium 25 mg 11/08/18 10:00 11/08/18 12:49 Cozaar - PO Not Given DAILY [facility] Memantine 10 mg 11/08/18 10:00 11/08/18 12:49 Namenda - PO Not Given BID [facility] Nifedipine 90 mg 11/08/18 10:00 11/08/18 12:51 Procardia Xl - PO Not Given DAILY [facility] Polymyxin/Trimethoprim Sulfate 1 drop 11/08/18 00:45 11/08/18 12:49 Polytrim Opthalmic Solution - OS Not Given DAILY [facility] ASSESSMENT/PLAN: 68 y.o. F PMH HTN, HLD, DM2, CVA, ESRD on HD //Mon, recent diagnosis of herpes opthalmicus (started on acyclovir) presented for generalized weakness , nausea, NBNB emesis and diarrhea. #Generalized nausea/ vomiting/ diarrhea -Pt has not had N/V/D since prior to admission -sxs began post- acyclovir -gentle hydration w/ NS @32mL/hr -Monitor vitals #Acute metabolic encephalopathy -Sxs began post- Ativan administration last night after pt was agitated -Pt had fallen in ED last night; CT head (x2) negative for acute pathology -Neuro checks -F/u UA -EKG: qtc 482, NSR #Herpes ophthalmicus -C/w IV acyclovir 350mg IV daily -ID on board (Dr. Dinero) -F/u ophtho (Dr. Locke) -Left CT orbit results appreciated -Contact precautions #Hypertensive urgency -S/p Nifedipine, losartan in ED -Pt has been missing PO doses d/t AMS (home meds: carvedilol 6.25mg BID, losartan 25mg daily, nifedipine 90 daily) -Spoke w/ pharmacy, most meds cannot be switched to IV -Started Metoprolol 5mg IV q6h #Hyperkalemia -Resolved #Hyponatremia -Improving #HLD -Atorvastatin 40mg PO daily #DM -Holding home meds -ISS -BGM #ESRD -C/w hemodialysis -Nephro following (Dr. Campoverde) #FEN -NS @32mL/ hr -Trend lytes -Soft Na controlled diet #DVT PPX -Heparin 5,000 SQ TID Visit type - Emergency Visit Emergency Visit: Yes ED Registration Date: 11/07/18 Care time: The patient presented to the Emergency Department on the above date and was hospitalized for further evaluation of their emergent condition. - New Patient This patient is new to me today: Yes Date on this admission: 11/08/18 - Critical Care Critical Care patient: No ATTENDING PHYSICIAN STATEMENT I saw and evaluated the patient. I reviewed the resident's note and discussed the case with the resident. I agree with the resident's findings and plan as documented. SUBJECTIVE: OBJECTIVE: ASSESSMENT AND PLAN:
--- NOTE | 2018-11-08 15:53 | CONSULT ---
Consult - text type - Consultation Consultation Note: Renal consult for ESRD on HD This is a 68 year old woman with history of ESRD on HD (TTS), hypertension, CAD, CVA, DM who presented from home with generalized weakness/ lethargy, 4 day history of diarrhea/poor oral intake and found to have hyperkalemia and AMS. PMHx: as above Allergies: NKDA Family Hx:NC Social Hx: No T/A/D ROS: limited due to AMS Vital Signs Temperature 97.9 F 11/08/18 05:31 Pulse Rate 96 H 11/08/18 05:31 Respiratory Rate 18 11/08/18 05:31 Blood Pressure 148/78 11/08/18 05:31 O2 Sat by Pulse Oximetry (%) 98 11/08/18 05:30 Intake & Output 11/05/18 11/06/18 11/07/18 11/08/18 23:59 23:59 23:59 23:59 Weight 72.575 kg Lethargic, opens eyes to verbal stimuli but goes back to sleep NAD neck supple, no JVD RRR, no M/R CTA (anterior examination) soft NT/ND, no organomegaly no extremity edema or cyanosis left arm AVF + thrill CBC, BMP 11/08/18 08:50 11/08/18 08:50 Current Medications Aspirin (Asa -) 81 mg PO DAILY [facility] Last Admin: 11/08/18 12:49 Dose: Not Given Atorvastatin Calcium (Lipitor -) 40 mg PO HS [facility] Carvedilol (Coreg -) 6.25 mg PO BID [facility] Last Admin: 11/08/18 12:49 Dose: Not Given Donepezil HCl (Aricept -) 10 mg PO HS [facility] Heparin Sodium (Porcine) (Heparin -) 5,000 unit SQ TID [facility] Last Admin: 11/08/18 06:12 Dose: 5,000 unit Sodium Chloride (Normal Saline -) 1,000 mls @ 32 mls/hr IV ASDIR [facility] Last Admin: 11/08/18 03:00 Dose: 32 mls/hr Sodium Chloride (Normal Saline -) 250 mls @ 3,000 mls/hr IV PRN PRN PRN Reason: Hypotension during Dialysis Stop: 11/09/18 08:05 Acyclovir 350 mg/ Dextrose 107 mls @ 107 mls/hr IVPB Q24H [facility] Insulin Aspart (Novolog Vial Sliding Scale -) 1 vial SQ ACHS [facility]; Protocol Last Admin: 11/08/18 06:12 Dose: 2 unit Losartan Potassium (Cozaar -) 25 mg PO DAILY [facility] Last Admin: 11/08/18 12:49 Dose: Not Given Memantine (Namenda -) 10 mg PO BID [facility] Last Admin: 11/08/18 12:49 Dose: Not Given Nifedipine (Procardia Xl -) 90 mg PO DAILY [facility] Last Admin: 11/08/18 12:51 Dose: Not Given Polymyxin/Trimethoprim Sulfate (Polytrim Opthalmic Solution -) 1 drop OS DAILY [facility] Last Admin: 11/08/18 12:49 Dose: Not Given 68 year old woman with history of ESRD on HD (TTS), hypertension, CAD, CVA, DM who presented from home with generalized weakness/lethargy, 4 day history of diarrhea/poor oral intake and found to have hyperkalemia and AMS. 1. ESRD on HD 2. Hyperkalemia 3. Altered mental status of unclear etiology (CT of the head showed no acute infacts but several older infacts) 5. Hypertension 6. Diarrhea Hyperkalemia improved s/p medical management. Awaiting Tele bed to have dialysis tx done today. no evidence of volume overload. Unlikely that AMS is due to uremia as BUN is only in the 40's. Consider neurology evaluation ? MANAGER CARD manifestations of zoster infection, consider possible LP Consider ID consult as pt may need adjusted dose of Acyclovir if encephalitis is suspected continue losartan, nifedpine for hypertension Thank you Will follow Nicolas Campoverde DO
[2018-11-08] MEDS ORDERED: METOPROLOL TARTRATE 5 MG/5 ML VIAL IVPUSH PRN (16:49)
[2018-11-08] MEDS ORDERED: SODIUM CHLORIDE 250 ML IV PRN (16:59)
[2018-11-08] MEDS: SODIUM CHLORIDE 1,000 ML IV SCH (20:15)
[2018-11-08 20:38] LABS: ARTERIAL BLD GAS O2 SATURATION 94.2 % (95-98); ARTERIAL BLOOD GAS BASE EXCESS 0.1 meq/l (-2-2); ARTERIAL BLOOD GAS PCO2 42.3 mmHg (35-45); ARTERIAL BLOOD GAS PO2 73.5 mmHg (80-100); ARTERIAL BLOOD GAS pH 7.38 (7.35-7.45)
[2018-11-08 20:42] LABS: ALLENS TEST POSITIVE
[2018-11-08 20:53] LABS: BASO % 0.6 % (0-2.0); EOS % 1.3 % (0-4.5); HEMATOCRIT 33.5 % (32.4-45.2); HEMOGLOBIN 11.2 GM/dL (10.7-15.3); MCH 30.9 pg (25.7-33.7); MCHC 33.5 g/dl (32.0-36.0); MEAN CELL VOLUME 92.4 fl (80-96); MEAN PLT VOLUME 8.2 fl (7.5-11.1); MONO % 4.4 % (3.8-10.2); NEUT % 85.7 % (42.8-82.8); PLATELET COUNT 172 K/MM3 (134-434); RBC 3.62 M/mm3 (3.60-5.2); RDW 13.4 % (11.6-15.6); WHITE BLOOD COUNT 9.5 K/mm3 (4.0-10.0)
--- NOTE | 2018-11-08 20:55 | RAPID ---
Physical Examination Vital Signs: Rapid response called to 6S at 20:00. BELT BUILDER HELPER arrived and told by nurses that pt was found to be lethargic and hypoxic in the 80s. Vitals: BP: 109/58 HR: 100 RR: 21 O2: 80s on RA, 99 on non-rebreather PE: General: non-arousable to sternal rub Heart: RRR, S1, S2, no murmurs Lungs: CTAB, no crackles Abd: soft, non-distended Ext: no edema, 2+ pulses FS Ordered CBC, CMP, lactic acid, ABG, coags. Started IV NS @ 42ml/hr. ABG was unremarkable Lactic acid: 3.5. Gave 500ml bolus NS and continued the NS 42ml/hr. Will repeat lactic acid in 4 hours. Repeat lactic acid: 0.6. Pt now arousable and clinically stable.
[2018-11-08 20:57] LABS: INR 0.98 (0.83-1.09); PROTHROMBIN TIME (PATIENT) 11.6 SEC (9.7-13.0)
[2018-11-08 21:10] LABS: ALBUMIN 3.1 g/dl (3.4-5.0); BILIRUBIN,TOTAL 0.4 mg/dL (0.2-1); BLOOD UREA NITROGEN 23.2 mg/dL (7-18); CALCIUM 8.2 mg/dL (8.5-10.1); CREATININE 5.1 mg/dL (0.55-1.3); POTASSIUM 3.6 mmol/L (3.5-5.1); TOT PROT 7.2 g/dl (6.4-8.2)
[2018-11-08] MEDS ORDERED: SODIUM CHLORIDE 500 ML IV STA (22:33)
[2018-11-08] MEDS: METOPROLOL TARTRATE 5 MG/5 ML VIAL IVPUSH SCH (23:57)
[2018-11-08] MEDS: ATORVASTATIN CA 40 MG TABLET (FP) PO SCH (23:58)
[2018-11-08] MEDS: DONEPEZIL HCL 10 MG TABLET (FP) PO SCH (23:58)
[2018-11-09 08:12] LABS: BASO % 1.3 % (0-2.0); EOS % 3.7 % (0-4.5); HEMATOCRIT 34.4 % (32.4-45.2); HEMOGLOBIN 11.7 GM/dL (10.7-15.3); MCH 31.3 pg (25.7-33.7); MCHC 33.9 g/dl (32.0-36.0); MEAN CELL VOLUME 92.4 fl (80-96); MEAN PLT VOLUME 8.2 fl (7.5-11.1); MONO % 5.1 % (3.8-10.2); NEUT % 74.9 % (42.8-82.8); PLATELET COUNT 193 K/MM3 (134-434); RBC 3.73 M/mm3 (3.60-5.2); RDW 13.6 % (11.6-15.6); WHITE BLOOD COUNT 9.3 K/mm3 (4.0-10.0)
[2018-11-09 08:38] LABS: ALBUMIN 3.6 g/dl (3.4-5.0); BILIRUBIN,TOTAL 0.4 mg/dL (0.2-1); BLOOD UREA NITROGEN 33.2 mg/dL (7-18); CALCIUM 8.6 mg/dL (8.5-10.1); MAGNESIUM 2.2 mg/dL (1.8-2.4); PHOSPHOROUS 6.3 mg/dL (2.5-4.9); POTASSIUM 4.9 mmol/L (3.5-5.1); TOT PROT 8.2 g/dl (6.4-8.2)
[2018-11-09 08:51] LABS: CREATININE 7.4 mg/dL (0.55-1.3)
--- NOTE | 2018-11-09 09:39 | CONSULT ---
Consult - text type - Consultation Consultation Note: Neurology CHIEF COMPLAINT: weakness HISTORY OF PRESENT ILLNESS: 68 y/o F, pmh of htn, dm type 2, hld, cva, esrd on dialysis via left arm fistula presents to the ED c/o of eye infection and weakness of one day duration associated with nausea, nbnb vomiting and nonbloody diarrhea. Pt reports that she was in the hospital yesterday for a herpes zoster eye infection but was sent to the ophthalmologists office, who prescribed her valacyclovir and polymixin eye drops. Her symptoms began few hours after taking her antiviral and has persisted since. She reports she does dialysis // Mon and her last dialysis was yesterday afternoon. Currently, she no longer has n/v/d but still c/o of weakness and eye discharge and pain. In the ED, pt was hypertensive at 218/103 which was controlled after administration of losartan and nifedipine. Pt is a poor historian and has multiple admissions for AMS and confusion. In the past dr. Correia has suggested hypertensive encephalopathy which could be the cause of pt's worsening cognition. Denies f/c/n/v/d/ sob, chest pain, facial pain or numbness, paresthesia, abdominal pain. Ct head was completed and did not show any acute changes. Patient seen this morning with resident at bedside and is more awake and alert, follows simple commands as she is able to squeeze my hand Discussed with son who was outside room and he reported that she was completely lethargic last night so it seems her mental status is improving. Certainly, only blood pressure can lead to status changes as well as underlying infection and she does seem fatigued Do recommend continuing optimization of infection. Recent Travel: denies PAST MEDICAL HISTORY: HTN, HLD, CVA, ESRD (T/R/Sat), b/l cataracts PAST SURGICAL HISTORY: renal transplant- 1st transplant failed after 5 years, still in the body. 2nd attempt- donor kidney failed and was never transplanted CAD s/p Cath- Dr. Mcleod as per chart Social History: Smoking: denies Alcohol: denies Drugs: denies Family History: denies Allergies codeine Allergy (Verified 11/07/18 18:49) promethazine HCl [From Phenergan] Allergy (Verified 11/07/18 18:49) ANAPHYLAXIS HOME MEDICATIONS: Home Medications Medication Instructions Recorded Acetaminophen [Tylenol Extra 500 mg PO PRN PRN 11/07/18 Strength] Aspirin [ASA -] 81 mg PO DAILY 11/07/18 Atorvastatin Ca [Lipitor] 40 mg PO HS 11/07/18 Carvedilol [Coreg -] 6.25 mg PO BID 11/07/18 Donepezil HCl [Aricept -] 10 mg PO DAILY 11/07/18 Losartan Potassium [Cozaar -] 25 mg PO DAILY 11/07/18 Memantine HCl [Namenda -] 10 mg PO BID 11/07/18 Nifedipine [Procardia Xl] 90 mg PO DAILY 11/07/18 Valacyclovir HCl [Valtrex -] 500 mg PO BID 11/07/18 REVIEW OF SYSTEMS CONSTITUTIONAL: Admits: generalized weakness Absent: fever, chills, diaphoresis,, weight change HEENT: admits: eye pain, eye discharge and redness Absent: ear pain, visual changes CARDIOVASCULAR: Absent: chest pain, syncope, palpitations, irregular heart rate, lightheadedness , RESPIRATORY: Absent: cough, shortness of breath, dyspnea with exertion, orthopnea, wheezing, stridor, hemoptysis GASTROINTESTINAL: Absent: abdominal pain, abdominal distension, nausea, vomiting, diarrhea, constipation, melena, GENITOURINARY: Absent: dysuria, frequency, hematuria, flank pain, genital pain MUSCULOSKELETAL: Absent: myalgia, arthralgia, back pain, neck pain SKIN: Admits: b/l leg itching Absent: rash, pallor HEMATOLOGIC/IMMUNOLOGIC: Absent: lymphadenopathy, frequent infections ENDOCRINE: Absent: unexplained weight gain/ loss, NEUROLOGIC: Absent: headache, paresthesias, dizziness, unsteady gait, seizure, mental status changes, bladder or bowel incontinence PSYCHIATRIC: Absent: anxiety, PHYSICAL EXAMINATION Vital Signs Period Temp Pulse Resp BP Sys/Travis Pulse Ox Last 24 Hr 97.5 F-98.2 F 82-111 16-20 93-194/55-102 97-97 GENERAL: Awake, alert, and fully oriented, in mild distress and lethargic EYES: Left eye discharge- dry and crusted, redness, mild superficial swelling and difficult to keep open. Pupils equal, round and reactive to light, extraocular movements intact, EARS, NOSE, THROAT: Vesicular rash on the left forehead present. Oropharynx clear without exudates. Moist mucous membranes. NECK: Normal range of motion, supple without lymphadenopathy, JVD, or masses. LUNGS: Breath sounds equal, clear to auscultation bilaterally. No wheezes, and no crackles. No accessory muscle use. HEART: Regular rate and rhythm, normal S1 and S2 without murmur, rub or gallop. ABDOMEN: Soft, nontender, not distended, normoactive bowel sounds, no guarding, no rebound, no masses. No hepatomegaly or splenomegaly. MUSCULOSKELETAL: No CVA tenderness. UPPER EXTREMITIES: 2+ pulses, warm, well-perfused. No cyanosis. No peripheral edema. LOWER EXTREMITIES: 2+ pulses, warm, well-perfused. No peripheral edema. NEUROLOGICAL: AWake, alert, not participating in confrontation testing but moves extremities grossly, sensory intact PSYCHIATRIC: Cooperative. Good eye contact. Appropriate mood and affect. CBCD WBC 9.3 K/mm3 (4.0-10.0) 11/09/18 07:45 RBC 3.73 M/mm3 (3.60-5.2) 11/09/18 07:45 Hgb 11.7 GM/dL (10.7-15.3) 11/09/18 07:45 Hct 34.4 % (32.4-45.2) 11/09/18 07:45 MCV 92.4 fl (80-96) 11/09/18 07:45 MCHC 33.9 g/dl (32.0-36.0) 11/09/18 07:45 RDW 13.6 % (11.6-15.6) 11/09/18 07:45 Plt Count 193 K/MM3 (134-434) 11/09/18 07:45 MPV 8.2 fl (7.5-11.1) 11/09/18 07:45 CMP Sodium 135 mmol/L (136-145) L 11/09/18 07:45 Potassium 4.9 mmol/L (3.5-5.1) 11/09/18 07:45 Chloride 97 mmol/L (98-107) L 11/09/18 07:45 Carbon Dioxide 23 mmol/L (21-32) 11/09/18 07:45 Anion Gap 15 MMOL/L (8-16) 11/09/18 07:45 BUN 33.2 mg/dL (7-18) H 11/09/18 07:45 Creatinine 7.4 mg/dL (0.55-1.3) H* 11/09/18 07:45 Random Glucose 209 mg/dL (74-106) H 11/09/18 07:45 Calcium 8.6 mg/dL (8.5-10.1) 11/09/18 07:45 Total Bilirubin 0.4 mg/dL (0.2-1) 11/09/18 07:45 AST 14 U/L (15-37) L 11/09/18 07:45 ALT 14 U/L (13-61) 11/09/18 07:45 Alkaline Phosphatase 68 U/L (45-117) 11/09/18 07:45 Total Protein 8.2 g/dl (6.4-8.2) 11/09/18 07:45 Albumin 3.6 g/dl (3.4-5.0) 11/09/18 07:45 CARDIAC ENZYMES Creatine Kinase 58 U/L (26-192) 11/07/18 19:33 Troponin I < 0.02 ng/ml (0.00-0.05) 11/07/18 19:33 ASSESSMENT/PLAN: 68 y/o F, pmh of htn, dm type 2, hld, cva, esrd on dialysis via left arm fistula presents to the ED c/o of eye infection and weakness of one day duration associated with nausea, nbnb vomiting and nonbloody diarrhea. Pt reports that she was in the hospital yesterday for a herpes zoster eye infection but was sent to the ophthalmologists office, who prescribed her valacyclovir and polymixin eye drops. Her symptoms began few hours after taking her antiviral and has persisted since. She reports she does dialysis // Mon and her last dialysis was yesterday afternoon. Currently, she no longer has n/v/d but still c/o of weakness and eye discharge and pain. In the ED, pt was hypertensive at 218/103 which was controlled after administration of losartan and nifedipine. Pt is a poor historian and has multiple admissions for AMS and confusion. In the past dr. Correia has suggested hypertensive encephalopathy which could be the cause of pt's worsening cognition. Denies f/c/n/v/d/ sob, chest pain, facial pain or numbness, paresthesia, abdominal pain. Ct head was completed and did not show any acute changes. Patient seen this morning with resident at bedside and is more awake and alert, follows simple commands as she is able to squeeze my hand Discussed with son who was outside room and he reported that she was completely lethargic last night so it seems her mental status is improving. Certainly, only blood pressure can lead to status changes as well as underlying infection and she does seem fatigued Do recommend continuing optimization of infection. Patient on acyclovir, ID follow-up. Continue hemodialysis, optimize renal status. monitor glucose, maintain euglycemic range. Monitor LDL, continue statin.
--- NOTE | 2018-11-09 10:39 | CONS ---
INFECTIOUS DISEASE CONSULTATION DATE OF CONSULTATION: DATE OF DICTATION: 11/08/2018 HISTORY: The patient is a 68-year-old female who is evaluated for herpes zoster. She presented to the hospital on November 07, 2018, with 2- to 3-day history of left periorbital swelling, generalized weakness, nausea, vomiting, and diarrhea. She had been diagnosed with herpes zoster and prescribed Valtrex. A CT of the head and orbits was ordered to rule out subdural hematoma because of history of recent falls. CAT scan was unremarkable. She was treated with IV acyclovir and topical ocular antibiotics for possible superinfected bacterial conjunctivitis. The patient had reported generalized weakness as well as nausea, vomiting, and diarrhea for approximately 2-3 days prior to admission. She denies any associated fever or chills. She was evaluated in the emergency room where a CAT scan of the head was negative for acute infarct or bleed. There was left periorbital soft tissue edema noted. PAST MEDICAL HISTORY: Positive for diabetes mellitus, hypertension, end-stage renal disease on dialysis, hyperlipidemia, stroke, cataracts. ALLERGIES: CODEINE and PROMETHAZINE. MEDICATIONS: Aspirin, Lipitor, Coreg, Aricept, Namenda, Procardia. SOCIAL HISTORY: Patient lives in the community. She is a nonsmoker, nondrinker. SYSTEMS REVIEW: Neurologic: No loss of consciousness, seizure activity, or focal weakness. Cardiac: Negative chest pain or palpitations. Respiratory: Negative cough or sputum production. Gastrointestinal: Negative vomiting or diarrhea. Genitourinary: Negative for urinary tract infection. LABORATORY DATA: White count 5.2, hematocrit 35.5, platelets 195, BUN 13, creatinine 5.1. PHYSICAL EXAMINATION: General: She is awake and alert. She is not acutely toxic appearing. Vital Signs: Temperature 98.2, blood pressure 153/82, pulse 82 regular, respirations 18 per minute. HEENT: Vesicular rash is noted involving the left periorbital area in the distribution of V1. No conjunctival injection. Lesions do not appear to be secondarily infected. Heart: Sounds S1, S2. Lungs: Clear. Abdomen: Soft, nontender. Extremities: Negative for edema. IMPRESSION: 1. Herpes zoster left V1 distribution. 2. Rule out herpes opthalmicus. 3. End-stage renal disease on hemodialysis. PLAN: Continue acyclovir adjusted for end-stage renal disease. Ophthalmology evaluation. Thank you for the kind referral. FLORI VIDAL M.D. SHASHA/[id number]
[2018-11-09] MEDS: POLYMYXIN B SULFATE/TMP 10 ML OPHTHALMIC SOLUTION OS SCH (11:10)
[2018-11-09] MEDS: NIFEdipine E.R. 90 MG TABLET (FP) PO SCH (11:38)
[2018-11-09] MEDS: MEMANTINE HCL 10 MG TABLET (FP) PO SCH ×2 (11:38→22:39)
[2018-11-09] MEDS: ASPIRIN 81 MG CHEWABLE TABLETS PO SCH (11:38)
[2018-11-09] MEDS: CARVEDILOL 6.25 MG TABLET (FP) PO SCH ×2 (11:38→22:38)
[2018-11-09] MEDS: LOSARTAN POTASSIUM 25 MG TABLET PO SCH (11:38)
[2018-11-09] MEDS ORDERED: SODIUM CHLORIDE 250 ML IV PRN (11:58)
--- NOTE | 2018-11-09 11:58 | PN ---
Progress Note (short form) - Note Progress Note: Renal follow up for ESRD Pt seen and examined at the bedside remains groggy and confused family at the bedside yesterday dialysis was terminated early due to low BP and change in breathing BP is better today Vital Signs Temperature 97.6 F 11/09/18 06:56 Pulse Rate 102 H 11/09/18 06:56 Respiratory Rate 20 11/09/18 06:56 Blood Pressure 148/74 11/09/18 06:56 O2 Sat by Pulse Oximetry (%) 97 11/08/18 21:00 Intake & Output 11/06/18 11/07/18 11/08/18 11/09/18 23:59 23:59 23:59 23:59 Intake Total 800 972 Output Total 500 Balance 300 972 Weight 72.575 kg 72.575 kg 72.575 kg Lethargic NAD neck supple, no JVD RRR, no M/R CTA (anterior examination) soft NT/ND, no organomegaly no extremity edema or cyanosis left arm AVF + thrill CBC, BMP 11/09/18 07:45 11/09/18 07:45 Current Medications Aspirin (Asa -) 81 mg PO DAILY [facility] Last Admin: 11/09/18 11:38 Dose: Not Given Atorvastatin Calcium (Lipitor -) 40 mg PO HS [facility] Last Admin: 11/08/18 23:58 Dose: Not Given Carvedilol (Coreg -) 6.25 mg PO BID [facility] Last Admin: 11/09/18 11:38 Dose: Not Given Donepezil HCl (Aricept -) 10 mg PO HS [facility] Last Admin: 11/08/18 23:58 Dose: Not Given Heparin Sodium (Porcine) (Heparin -) 5,000 unit SQ TID [facility] Last Admin: 11/08/18 23:57 Dose: Not Given Sodium Chloride (Normal Saline -) 250 mls @ 3,000 mls/hr IV PRN PRN PRN Reason: Hypotension during Dialysis Stop: 11/09/18 16:58 Sodium Chloride (Normal Saline -) 1,000 mls @ 42 mls/hr IV ASDIR [facility] Last Admin: 11/08/18 20:15 Dose: 42 mls/hr Acyclovir 350 mg/ Dextrose 107 mls @ 107 mls/hr IVPB Q24H [facility] Insulin Aspart (Novolog Vial Sliding Scale -) 1 vial SQ ACHS [facility]; Protocol Last Admin: 11/08/18 23:59 Dose: Not Given Losartan Potassium (Cozaar -) 25 mg PO DAILY [facility] Last Admin: 11/09/18 11:38 Dose: Not Given Memantine (Namenda -) 10 mg PO BID [facility] Last Admin: 11/09/18 11:38 Dose: Not Given Metoprolol Tartrate (Lopressor Injection -) 5 mg IVPUSH Q4H PRN PRN Reason: SYSTOLIC BP >140 Metoprolol Tartrate (Lopressor Injection -) 5 mg IVPUSH Q6H [facility] Last Admin: 11/08/18 23:57 Dose: Not Given Nifedipine (Procardia Xl -) 90 mg PO DAILY [facility] Last Admin: 11/09/18 11:38 Dose: Not Given Polymyxin/Trimethoprim Sulfate (Polytrim Opthalmic Solution -) 1 drop OS DAILY [facility] Last Admin: 11/08/18 12:49 Dose: Not Given 68 year old woman with history of ESRD on HD (TTS), hypertension, CAD, CVA, DM who presented from home with generalized weakness/lethargy, 4 day history of diarrhea/poor oral intake and found to have hyperkalemia and AMS. 1. ESRD on HD 2. Hyperkalemia 3. Altered mental status of unclear etiology (CT of the head showed no acute infacts but several older infacts) 5. Hypertension 6. Diarrhea mental status w/o signifincat improvement thus far. Neurology consult appericated. To get MRI. will not plan on giving dialysis today as K, BUN/Cr are stable. Do not suspect uremia as cause of AMS Will plan on next dialysis in AM continue Acyclovir as per ID continue supportive care Nicolas Campoverde DO
--- NOTE | 2018-11-09 12:22 | PN ---
Teaching Attending Note Name of Resident: Shelby Cervantes ATTENDING PHYSICIAN STATEMENT I saw and evaluated the patient. I reviewed the resident's note and discussed the case with the resident. I agree with the resident's findings and plan as documented. SUBJECTIVE:EXHIBIT TECHNICIAN called last night due to unresponsiveness. state Head CT done. this AM offered no complaints OBJECTIVE: Last Vital Signs Temp Pulse Resp BP Pulse Ox 97.6 F 102 H 20 148/74 97 11/09/18 06:56 11/09/18 06:56 11/09/18 06:56 11/09/18 06:56 11/08/18 21:00 General alert slow to respond. states name and no to pain but does not respond to other questions HEENT L eye vessicles medial and scattered on lateral aspect. eye is not injected or swollen. CV S1 s2 RRR +murmur Lungs CTA B/L No wheezing/rales/rhonchi Abdomen soft NT/ND extremiteis +LUE palpable thrill Neuro due to mental status does not follow all commands. follow some commands, move all extremities ASSESSMENT AND PLAN: 68yo F wtih PMH DM, ESRD on HD (TTS), CVA, and recently diagnosed zoster opthalmicus which she was started on valtrex and vomited and developed diarrhea. Became agitated last night and received ativan which she subsequently fell afterwards. 1. Acute metabolic encephalopathy- likely due to ativan administration vs herpetic encephalopthy. mental status seems to be waxing and waning. Neuro consult. consider LP. will f/u read on 3rd head CT. Frequent neurochecks 2. Nausea and vomiting- could be due to valtrex intolerance vs HTN urgency. no reports here in the Er. will cont with gentle hydration until mental status improves and then can trial diet 3. Zoster opthalmicus- on acylovir day 2. will need to be given after HD. optho and ID consulted. contact precautions. 4. HTN urgency- improved. titrate meds to optimize control 5. hyponatremia- due to dehydration from vomiting. now resolved 6. Hyperkalemia- resolved 7. Mechanical fall- possible due to ativan dose. PT eval 8. ESRD on HD- TTS schedule. did not tolerate HD yesterday due to hypoxia and session cut short. pt is confused but doubt uremia is factor here. HD per nephro. 9. DM- hold oral agents. Iss and bgm 10. CVA 11. DVT ppx- hep sq
--- NOTE | 2018-11-09 13:06 | PN ---
Progress Note, Physician History of Present Illness: AWAKE BUT LETHARGIC IN BED DAUGHTER REPORTS PT CONFUSED WHICH IS NOT HER BASELINE NO C/O PAIN AFEBRILE - Current Medication List Current Medications: Active Medications Aspirin (Asa -) 81 mg PO DAILY [facility] Last Admin: 11/09/18 11:38 Dose: Not Given Atorvastatin Calcium (Lipitor -) 40 mg PO HS [facility] Last Admin: 11/08/18 23:58 Dose: Not Given Carvedilol (Coreg -) 6.25 mg PO BID [facility] Last Admin: 11/09/18 11:38 Dose: Not Given Donepezil HCl (Aricept -) 10 mg PO HS [facility] Last Admin: 11/08/18 23:58 Dose: Not Given Heparin Sodium (Porcine) (Heparin -) 5,000 unit SQ TID [facility] Last Admin: 11/08/18 23:57 Dose: Not Given Sodium Chloride (Normal Saline -) 250 mls @ 3,000 mls/hr IV PRN PRN PRN Reason: Hypotension during Dialysis Stop: 11/09/18 16:58 Sodium Chloride (Normal Saline -) 1,000 mls @ 42 mls/hr IV ASDIR [facility] Last Admin: 11/08/18 20:15 Dose: 42 mls/hr Acyclovir 350 mg/ Dextrose 107 mls @ 107 mls/hr IVPB Q24H [facility] Sodium Chloride (Normal Saline -) 250 mls @ 3,000 mls/hr IV PRN PRN PRN Reason: Hypotension during Dialysis Stop: 11/10/18 11:58 Insulin Aspart (Novolog Vial Sliding Scale -) 1 vial SQ ACHS [facility]; Protocol Last Admin: 11/08/18 23:59 Dose: Not Given Losartan Potassium (Cozaar -) 25 mg PO DAILY [facility] Last Admin: 11/09/18 11:38 Dose: Not Given Memantine (Namenda -) 10 mg PO BID [facility] Last Admin: 11/09/18 11:38 Dose: Not Given Metoprolol Tartrate (Lopressor Injection -) 5 mg IVPUSH Q4H PRN PRN Reason: SYSTOLIC BP >140 Metoprolol Tartrate (Lopressor Injection -) 5 mg IVPUSH Q6H [facility] Last Admin: 11/08/18 23:57 Dose: Not Given Nifedipine (Procardia Xl -) 90 mg PO DAILY [facility] Last Admin: 11/09/18 11:38 Dose: Not Given Polymyxin/Trimethoprim Sulfate (Polytrim Opthalmic Solution -) 1 drop OS DAILY [facility] Last Admin: 11/08/18 12:49 Dose: Not Given - Objective Vital Signs: Vital Signs Temperature 97.6 F 11/09/18 06:56 Pulse Rate 102 H 11/09/18 06:56 Respiratory Rate 20 11/09/18 06:56 Blood Pressure 148/74 11/09/18 06:56 O2 Sat by Pulse Oximetry (%) 97 11/08/18 21:00 Eyes: Yes: Other (SL CONJUCTIVAL INJECTION) HENT: Yes: Other (MILD L PERIORBITAL SWELLING; DRY PAPULAR LESIONS) Cardiovascular: Yes: Regular Rate and Rhythm, S1, S2 Gastrointestinal: Yes: Normal Bowel Sounds, Soft. No: Tenderness Edema: No Labs: CBC, BMP 11/09/18 07:45 11/09/18 07:45 INR, PTT INR 0.98 (0.83-1.09) 11/08/18 20:00 Assessment/Plan VZV L V1 DISTRIBUTION ? TOXIC / METABOLIC ENCEPHALOPATHY ? VZV ENCEPHALITIS ESRD CONT ACV ADJUSTED FOR ESRD AGREE WITH LP IF IMPROVEMENT IN MENTAL STATUS NOT FORTHCOMING
[2018-11-09 15:02] LABS: ARTERIAL BLD GAS O2 SATURATION 98.8 % (95-98); ARTERIAL BLOOD GAS BASE EXCESS -3.2 meq/l (-2-2); ARTERIAL BLOOD GAS PCO2 39.2 mmHg (35-45); ARTERIAL BLOOD GAS PO2 139 mmHg (80-100); ARTERIAL BLOOD GAS pH 7.36 (7.35-7.45)
[2018-11-09 15:08] LABS: ALLENS TEST POSITIVE
[2018-11-09] MEDS: INSULIN SLIDING SCALE (NOVOLOG) 1 VIAL SQ SCH ×2 (15:14→22:40)
[2018-11-09] MEDS: METOPROLOL TARTRATE 5 MG/5 ML VIAL IVPUSH SCH (15:14)
[2018-11-09] MEDS: HEPARIN NA (PORCINE) 5,000 UNITS/ML 1ML VIAL SQ SCH ×2 (15:15→22:38)
--- NOTE | 2018-11-09 16:19 | PN ---
Physical Exam: SUBJECTIVE: Patient seen and examined. Patient's alertness waxing/ waning throughout day. L eye irritation improving. Pt did not complete dialysis last night d/t hypoxia. Will resume dialysis tomorrow. OBJECTIVE: Vital Signs Period Temp Pulse Resp BP Sys/Travis Pulse Ox Last 24 Hr 97.5 F-98.2 F 88-111 18-20 93-194/55-102 97-97 GENERAL: The patient is awake, alert, unable to assess orientation HEAD: L forehead herpetic lesion in V1 distribution EYES: L sided periorbital edema with mild yellow/ green crusting present. Conjunctival injection present to left orbit. Right eye: no conj injection, no icterus, no edema. ENT: Oropharynx clear without exudates, moist mucous membranes. NECK: No lymphadenopathy LUNGS: CTABL, no wheezes, no crackles, no accessory muscle use. HEART: Regular rate and rhythm, S1, S2 without murmurs ABDOMEN: Soft, nontender, nondistended, normoactive bowel sounds, no guarding EXTREMITIES: 2+ pulses, warm, well-perfused, no edema. HD fistula intact to LUE ; no signs of infection to fistula site Laboratory Results - last 24 hr 11/08/18 11/08/18 11/08/18 17:12 19:14 20:00 WBC 9.5 RBC 3.62 Hgb 11.2 Hct 33.5 MCV 92.4 MCH 30.9 MCHC 33.5 RDW 13.4 Plt Count 172 MPV 8.2 Absolute Neuts (auto) 8.2 H Neutrophils % 85.7 H D Lymphocytes % 8.0 D Monocytes % 4.4 Eosinophils % 1.3 Basophils % 0.6 Nucleated RBC % 0 PT with INR INR Anticoagulation Therapy Puncture Site ABG pH ABG pCO2 at Pt Temp ABG pO2 at Pt Temp ABG HCO3 ABG O2 Sat (Measured) ABG O2 Content ABG Base Excess Lauri Test O2 Delivery Device Oxygen Flow Rate Vent Mode Vent Rate Mechanical Rate Pressure Support Vent Sodium Potassium Chloride Carbon Dioxide Anion Gap BUN Creatinine Est GFR (CKD-EPI)AfAm Est GFR (CKD-EPI)NonAf POC Glucometer 194 235 Random Glucose Lactic Acid Calcium Phosphorus Magnesium Total Bilirubin AST ALT Alkaline Phosphatase Total Protein Albumin 11/08/18 11/08/18 11/08/18 20:00 20:00 20:00 WBC RBC Hgb Hct MCV MCH MCHC RDW Plt Count MPV Absolute Neuts (auto) Neutrophils % Lymphocytes % Monocytes % Eosinophils % Basophils % Nucleated RBC % PT with INR 11.60 INR 0.98 Anticoagulation Therapy Puncture Site ABG pH ABG pCO2 at Pt Temp ABG pO2 at Pt Temp ABG HCO3 ABG O2 Sat (Measured) ABG O2 Content ABG Base Excess Lauri Test O2 Delivery Device Oxygen Flow Rate Vent Mode Vent Rate Mechanical Rate Pressure Support Vent Sodium 136 Potassium 3.6 Chloride 98 Carbon Dioxide 25 Anion Gap 13 BUN 23.2 H Creatinine 5.1 H Est GFR (CKD-EPI)AfAm 9.48 Est GFR (CKD-EPI)NonAf 8.18 POC Glucometer Random Glucose 202 H Lactic Acid 3.5 H* Calcium 8.2 L Phosphorus Magnesium Total Bilirubin 0.4 AST 16 ALT 12 L Alkaline Phosphatase 56 Total Protein 7.2 Albumin 3.1 L 11/08/18 11/08/18 11/09/18 20:13 20:15 03:07 WBC RBC Hgb Hct MCV MCH MCHC RDW Plt Count MPV Absolute Neuts (auto) Neutrophils % Lymphocytes % Monocytes % Eosinophils % Basophils % Nucleated RBC % PT with INR INR Anticoagulation Therapy No Result Required. Puncture Site Right brachial ABG pH 7.38 ABG pCO2 at Pt Temp 42.3 ABG pO2 at Pt Temp 73.5 L ABG HCO3 24.7 ABG O2 Sat (Measured) 94.2 L ABG O2 Content 15.4 ABG Base Excess 0.1 Lauri Test Positive O2 Delivery Device Non rebreathable Oxygen Flow Rate 100% Vent Mode No Result Required. Vent Rate No Result Required. Mechanical Rate No Result Required. Pressure Support Vent No Result Required. Sodium Potassium Chloride Carbon Dioxide Anion Gap BUN Creatinine Est GFR (CKD-EPI)AfAm Est GFR (CKD-EPI)NonAf POC Glucometer 194 Random Glucose Lactic Acid 0.6 Calcium Phosphorus Magnesium Total Bilirubin AST ALT Alkaline Phosphatase Total Protein Albumin 11/09/18 11/09/18 11/09/18 06:29 07:45 07:45 WBC 9.3 RBC 3.73 Hgb 11.7 Hct 34.4 MCV 92.4 MCH 31.3 MCHC 33.9 RDW 13.6 Plt Count 193 MPV 8.2 Absolute Neuts (auto) 7.0 Neutrophils % 74.9 Lymphocytes % 15.0 D Monocytes % 5.1 Eosinophils % 3.7 D Basophils % 1.3 Nucleated RBC % 0 PT with INR INR Anticoagulation Therapy Puncture Site ABG pH ABG pCO2 at Pt Temp ABG pO2 at Pt Temp ABG HCO3 ABG O2 Sat (Measured) ABG O2 Content ABG Base Excess Lauri Test O2 Delivery Device Oxygen Flow Rate Vent Mode Vent Rate Mechanical Rate Pressure Support Vent Sodium 135 L Potassium 4.9 Chloride 97 L Carbon Dioxide 23 Anion Gap 15 BUN 33.2 H Creatinine 7.4 H* Est GFR (CKD-EPI)AfAm 6.05 Est GFR (CKD-EPI)NonAf 5.22 POC Glucometer 205 Random Glucose 209 H Lactic Acid Calcium 8.6 Phosphorus 6.3 H Magnesium 2.2 Total Bilirubin 0.4 AST 14 L ALT 14 Alkaline Phosphatase 68 Total Protein 8.2 Albumin 3.6 11/09/18 14:50 WBC RBC Hgb Hct MCV MCH MCHC RDW Plt Count MPV Absolute Neuts (auto) Neutrophils % Lymphocytes % Monocytes % Eosinophils % Basophils % Nucleated RBC % PT with INR INR Anticoagulation Therapy Puncture Site Right radial ABG pH 7.36 ABG pCO2 at Pt Temp 39.2 ABG pO2 at Pt Temp 139 H ABG HCO3 21.4 L ABG O2 Sat (Measured) 98.8 H ABG O2 Content 17.3 ABG Base Excess -3.2 L Lauri Test Positive O2 Delivery Device Oxygen Flow Rate Yes Vent Mode Vent Rate Mechanical Rate Pressure Support Vent Sodium Potassium Chloride Carbon Dioxide Anion Gap BUN Creatinine Est GFR (CKD-EPI)AfAm Est GFR (CKD-EPI)NonAf POC Glucometer Random Glucose Lactic Acid Calcium Phosphorus Magnesium Total Bilirubin AST ALT Alkaline Phosphatase Total Protein Albumin Active Medications Generic Name Dose Route Start Last Admin Trade Name Freq PRN Reason Stop Dose Admin Aspirin 81 mg 11/08/18 10:00 11/09/18 11:38 Asa - PO Not Given DAILY [facility] Atorvastatin Calcium 40 mg 11/08/18 22:00 11/08/18 23:58 Lipitor - PO Not Given HS [facility] Carvedilol 6.25 mg 11/08/18 10:00 11/09/18 11:38 Coreg - PO Not Given BID [facility] Donepezil HCl 10 mg 11/08/18 22:00 11/08/18 23:58 Aricept - PO Not Given HS [facility] Heparin Sodium (Porcine) 5,000 unit 11/08/18 06:00 11/09/18 15:15 Heparin - SQ Not Given TID [facility] Sodium Chloride 250 mls @ 3,000 mls/hr 11/08/18 16:59 Normal Saline - IV 11/09/18 16:58 PRN PRN Hypotension during Dialysis Sodium Chloride 1,000 mls @ 42 mls/hr 11/08/18 20:15 11/08/18 20:15 Normal Saline - IV 42 mls/hr ASDIR [facility] Administration Acyclovir 350 mg/ Dextrose 107 mls @ 107 mls/hr 11/10/18 20:00 IVPB Q24H [facility] Sodium Chloride 250 mls @ 3,000 mls/hr 11/09/18 11:58 Normal Saline - IV 11/10/18 11:58 PRN PRN Hypotension during Dialysis Insulin Aspart 1 vial 11/08/18 07:00 11/09/18 15:14 Novolog Vial Sliding Scale - SQ Not Given ACHS [facility] Protocol Losartan Potassium 25 mg 11/08/18 10:00 11/09/18 11:38 Cozaar - PO Not Given DAILY [facility] Memantine 10 mg 11/08/18 10:00 11/09/18 11:38 Namenda - PO Not Given BID [facility] Metoprolol Tartrate 5 mg 11/08/18 16:49 Lopressor Injection - IVPUSH Q4H PRN SYSTOLIC BP >140 Metoprolol Tartrate 5 mg 11/08/18 17:30 11/09/18 15:14 Lopressor Injection - IVPUSH Not Given Q6H [facility] Nifedipine 90 mg 11/08/18 10:00 11/09/18 11:38 Procardia Xl - PO Not Given DAILY [facility] Polymyxin/Trimethoprim Sulfate 1 drop 11/08/18 00:45 11/08/18 12:49 Polytrim Opthalmic Solution - OS Not Given DAILY [facility] ASSESSMENT/PLAN: 68 y.o. F PMH HTN, HLD, DM2, CVA, ESRD on HD //Mon, recent diagnosis of herpes opthalmicus (started on acyclovir) presented for generalized weakness , nausea, NBNB emesis and diarrhea. #Generalized nausea/ vomiting/ diarrhea -Resolved -Gentle hydration w/ NS @42mL/hr -Monitor vitals #Acute metabolic encephalopathy -Sxs began post- Ativan administration in ED -Pt had fallen in ED 11/07; CT head (x2) negative for acute pathology -EKG: qtc 482, NSR -F/u MRI brain to r/o new infarcts -Consider LP -F/u UA, hep panel -Neuro checks #Herpes ophthalmicus -C/w IV acyclovir 350mg IV daily in evenings -ID on board (Dr. Dinero) -F/u ophtho (Dr. Locke) -Left CT orbit results appreciated -Contact precautions #Hypertensive urgency -S/p Nifedipine, losartan in ED -Metoprolol 5mg IV q6h #Hyperkalemia -Resolved #Hyponatremia -Improving #HLD -Atorvastatin 40mg PO daily #DM -Holding home meds -ISS -BGM #ESRD -C/w hemodialysis / / Sat -Nephro following (Dr. Campoverde) #FEN -NS @42mL/ hr -Trend lytes -Soft Na controlled diet #DVT PPX -Heparin 5,000 SQ TID Visit type - Emergency Visit Emergency Visit: No - New Patient This patient is new to me today: No - Critical Care Critical Care patient: No ATTENDING PHYSICIAN STATEMENT I saw and evaluated the patient. I reviewed the resident's note and discussed the case with the resident. I agree with the resident's findings and plan as documented. SUBJECTIVE: OBJECTIVE: ASSESSMENT AND PLAN:
[2018-11-09] MEDS: ATORVASTATIN CA 40 MG TABLET (FP) PO SCH (22:38)
[2018-11-09] MEDS: DONEPEZIL HCL 10 MG TABLET (FP) PO SCH (22:39)
[2018-11-09] MEDS ORDERED: hydrALAZINE HCL 20 MG/ML VIAL IVPB ONE ×2 (23:12→23:30)
--- NOTE | 2018-11-10 08:41 | PN ---
Progress Note (short form) - Note Progress Note: currently asymptomatic. denies CP, SOb, fever, chills, N/V/C/D Current Medications Generic Name Dose Route Start Last Admin Trade Name Lars PRN Reason Stop Dose Admin Aspirin 81 mg 11/08/18 10:00 11/09/18 11:38 Asa - PO Not Given DAILY [facility] Atorvastatin Calcium 40 mg 11/08/18 22:00 11/09/18 22:38 Lipitor - PO 40 mg HS [facility] Administration Carvedilol 6.25 mg 11/08/18 10:00 11/09/18 22:38 Coreg - PO 6.25 mg BID [facility] Administration Donepezil HCl 10 mg 11/08/18 22:00 11/09/18 22:39 Aricept - PO 10 mg HS [facility] Administration Heparin Sodium (Porcine) 5,000 unit 11/08/18 06:00 11/09/18 22:38 Heparin - SQ 5,000 unit TID [facility] Administration Acyclovir 350 mg/ Dextrose 107 mls @ 107 mls/hr 11/10/18 20:00 IVPB Q24H [facility] Sodium Chloride 250 mls @ 3,000 mls/hr 11/09/18 11:58 Normal Saline - IV 11/10/18 11:58 PRN PRN Hypotension during Dialysis Insulin Aspart 1 vial 11/08/18 07:00 11/09/18 22:40 Novolog Vial Sliding Scale - SQ 2 unit ACHS [facility] Administration Protocol Losartan Potassium 25 mg 11/08/18 10:00 11/09/18 11:38 Cozaar - PO Not Given DAILY [facility] Memantine 10 mg 11/08/18 10:00 11/09/18 22:39 Namenda - PO 10 mg BID [facility] Administration Metoprolol Tartrate 5 mg 11/08/18 16:49 Lopressor Injection - IVPUSH Q4H PRN SYSTOLIC BP >140 Metoprolol Tartrate 5 mg 11/08/18 17:30 11/09/18 15:14 Lopressor Injection - IVPUSH Not Given Q6H [facility] Nifedipine 90 mg 11/08/18 10:00 11/09/18 11:38 Procardia Xl - PO Not Given [facility]ILY [facility] Polymyxin/Trimethoprim Sulfate 1 drop 11/08/18 00:45 11/09/18 11:10 Polytrim Opthalmic Solution - OS 1 drop DAILY [facility] Administration Last Vital Signs Temp Pulse Resp BP Pulse Ox 98.4 F 88 20 156/71 97 11/10/18 07:00 11/10/18 07:00 11/10/18 07:00 11/10/18 07:00 11/08/18 21:00 General alert but quickly falls asleep. states she does not know her name today HEENT L eye vessicles medial and scattered on lateral aspect. no active drainage. are not crusted CV S1 s2 RRR +murmur Lungs CTA B/L No wheezing/rales/rhonchi Abdomen soft NT/ND extremiteis +LUE palpable thrill Neuro due to mental status does not follow all commands. follow some commands, move all extremities CBCD WBC 7.1 K/mm3 (4.0-10.0) 11/10/18 07:15 RBC 3.41 M/mm3 (3.60-5.2) L 11/10/18 07:15 Hgb 10.6 GM/dL (10.7-15.3) L 11/10/18 07:15 Hct 31.7 % (32.4-45.2) L 11/10/18 07:15 MCV 93.1 fl (80-96) 11/10/18 07:15 MCHC 33.5 g/dl (32.0-36.0) 11/10/18 07:15 RDW 13.3 % (11.6-15.6) 11/10/18 07:15 Plt Count 173 K/MM3 (134-434) 11/10/18 07:15 MPV 8.2 fl (7.5-11.1) 11/10/18 07:15 CMP Sodium 136 mmol/L (136-145) 11/10/18 07:15 Potassium 4.4 mmol/L (3.5-5.1) 11/10/18 07:15 Chloride 100 mmol/L (98-107) 11/10/18 07:15 Carbon Dioxide 24 mmol/L (21-32) 11/10/18 07:15 Anion Gap 13 MMOL/L (8-16) 11/10/18 07:15 BUN 39.8 mg/dL (7-18) H 11/10/18 07:15 Creatinine 8.3 mg/dL (0.55-1.3) H* 11/10/18 07:15 Calcium 7.8 mg/dL (8.5-10.1) L 11/10/18 07:15 Total Bilirubin 0.4 mg/dL (0.2-1) 11/10/18 07:15 AST 13 U/L (15-37) L 11/10/18 07:15 ALT 11 U/L (13-61) L 11/10/18 07:15 Alkaline Phosphatase 60 U/L (45-117) 11/10/18 07:15 Total Protein 7.4 g/dl (6.4-8.2) 11/10/18 07:15 Albumin 3.1 g/dl (3.4-5.0) L 11/10/18 07:15 Microbiology 11/08/18 20:00 Blood Culture - Preliminary Blood - Arterial NO GROWTH OBTAINED AFTER 24 HOURS, INCUBATION TO CONTINUE FOR 4 DAYS. 11/08/18 20:00 Blood Culture - Preliminary Blood - Arterial NO GROWTH OBTAINED AFTER 24 HOURS, INCUBATION TO CONTINUE FOR 4 DAYS. ASSESSMENT AND PLAN: 68yo F wtih PMH DM, ESRD on HD (TTS), CVA, and recently diagnosed zoster opthalmicus which she was started on valtrex and vomited and developed diarrhea. Became agitated last night and received ativan which she subsequently fell afterwards. 1. Acute metabolic encephalopathy- likely due to ativan administration vs herpetic encephalopthy. mental status seems to be waxing and waning. MRI done, awaiting read. may need LP if mental status does not improve. Neuro consult. Frequent neurochecks 2. Nausea and vomiting- could be due to valtrex intolerance vs HTN urgency. no reports here in the Er. will cont with gentle hydration until mental status improves and then can trial diet 3. Zoster opthalmicus- on acylovir day 3. will need to be given after HD. optho and ID consulted. contact precautions. 4. HTN urgency- labile. has not been consistently get her medications. will need to monitor closely 5. hyponatremia- due to dehydration from vomiting. now resolved 6. Hyperkalemia- resolved 7. Mechanical fall- possible due to ativan dose. PT eval 8. ESRD on HD- TTS schedule. did not tolerate HD yesterday due to hypoxia and session cut short. pt is confused but doubt uremia is factor here. HD per nephro. 9. DM- hold oral agents. Iss and bgm 10. CVA 11. DVT ppx- hep sq Visit type - Emergency Visit Emergency Visit: Yes ED Registration Date: 11/07/18 Care time: The patient presented to the Emergency Department on the above date and was hospitalized for further evaluation of their emergent condition. - New Patient This patient is new to me today: No - Critical Care Critical Care patient: No - Discharge Referral Referred to [facility] Med [facility] No
[2018-11-10 08:46] LABS: BASO % 1.5 % (0-2.0); EOS % 8.9 % (0-4.5); HEMATOCRIT 31.7 % (32.4-45.2); HEMOGLOBIN 10.6 GM/dL (10.7-15.3); LYMPH % 20.8 % (8-40); MCH 31.2 pg (25.7-33.7); MCHC 33.5 g/dl (32.0-36.0); MEAN CELL VOLUME 93.1 fl (80-96); MEAN PLT VOLUME 8.2 fl (7.5-11.1); MONO % 5.9 % (3.8-10.2); NEUT % 62.9 % (42.8-82.8); PLATELET COUNT 173 K/MM3 (134-434); RBC 3.41 M/mm3 (3.60-5.2); RDW 13.3 % (11.6-15.6); WHITE BLOOD COUNT 7.1 K/mm3 (4.0-10.0)
[2018-11-10 09:14] LABS: ALBUMIN 3.1 g/dl (3.4-5.0); BILIRUBIN,TOTAL 0.4 mg/dL (0.2-1); BLOOD UREA NITROGEN 39.8 mg/dL (7-18); CALCIUM 7.8 mg/dL (8.5-10.1); POTASSIUM 4.4 mmol/L (3.5-5.1); TOT PROT 7.4 g/dl (6.4-8.2)
[2018-11-10 09:17] LABS: CREATININE 8.3 mg/dL (0.55-1.3)
[2018-11-10] MEDS ORDERED: ACYCLOVIR INJECTION 350 MG in DEXTROSE 5%-WATER - 100 ML IVPB SCH (10:00)
--- NOTE | 2018-11-10 10:35 | PN ---
Progress Note (short form) - Note Progress Note: Neurology CHIEF COMPLAINT: weakness HISTORY OF PRESENT ILLNESS: 68 y/o F, pmh of htn, dm type 2, hld, cva, esrd on dialysis via left arm fistula presents to the ED c/o of eye infection and weakness of one day duration associated with nausea, nbnb vomiting and nonbloody diarrhea. Pt reports that she was in the hospital yesterday for a herpes zoster eye infection but was sent to the ophthalmologists office, who prescribed her valacyclovir and polymixin eye drops. Her symptoms began few hours after taking her antiviral and has persisted since. She reports she does dialysis // Mon and her last dialysis was yesterday afternoon. Currently, she no longer has n/v/d but still c/o of weakness and eye discharge and pain. In the ED, pt was hypertensive at 218/103 which was controlled after administration of losartan and nifedipine. Pt is a poor historian and has multiple admissions for AMS and confusion. In the past dr. Correia has suggested hypertensive encephalopathy which could be the cause of pt's worsening cognition. Denies f/c/n/v/d/ sob, chest pain, facial pain or numbness, paresthesia, abdominal pain. Ct head was completed and did not show any acute changes. Patient seen monday morning with resident at bedside and is more awake and alert, follows simple commands as she is able to squeeze my hand Discussed with son who was outside room and he reported that she was completely lethargic last night so it seems her mental status is improving. Certainly, only blood pressure can lead to status changes as well as underlying infection and she does seem fatigued Do recommend continuing optimization of infection. Brain MRI completed, report pending. Discussed with hospitalized, mental status waxes and wanes. Can be alert at times but other times somnolent, not consistent with herpes encephalitis in which case patient would be persistently lethargic, not communicative. Is on Acylclovir, advised checking with ID if other cyclovir medications are stronger. Active Medications Aspirin (Asa -) 81 mg PO DAILY [facility] Last Admin: 11/09/18 11:38 Dose: Not Given Atorvastatin Calcium (Lipitor -) 40 mg PO HS [facility] Last Admin: 11/09/18 22:38 Dose: 40 mg Carvedilol (Coreg -) 6.25 mg PO BID [facility] Last Admin: 11/09/18 22:38 Dose: 6.25 mg Donepezil HCl (Aricept -) 10 mg PO HS [facility] Last Admin: 11/09/18 22:39 Dose: 10 mg Heparin Sodium (Porcine) (Heparin -) 5,000 unit SQ TID [facility] Last Admin: 11/09/18 22:38 Dose: 5,000 unit Acyclovir 350 mg/ Dextrose 107 mls @ 107 mls/hr IVPB Q24H [facility] Sodium Chloride (Normal Saline -) 250 mls @ 3,000 mls/hr IV PRN PRN PRN Reason: Hypotension during Dialysis Stop: 11/10/18 11:58 Insulin Aspart (Novolog Vial Sliding Scale -) 1 vial SQ ACHS [facility]; Protocol Last Admin: 11/09/18 22:40 Dose: 2 unit Losartan Potassium (Cozaar -) 25 mg PO DAILY [facility] Last Admin: 11/09/18 11:38 Dose: Not Given Memantine (Namenda -) 10 mg PO BID [facility] Last Admin: 11/09/18 22:39 Dose: 10 mg Metoprolol Tartrate (Lopressor Injection -) 5 mg IVPUSH Q4H PRN PRN Reason: SYSTOLIC BP >140 Metoprolol Tartrate (Lopressor Injection -) 5 mg IVPUSH Q6H [facility] Last Admin: 11/09/18 15:14 Dose: Not Given Nifedipine (Procardia Xl -) 90 mg PO DAILY [facility] Last Admin: 11/09/18 11:38 Dose: Not Given Polymyxin/Trimethoprim Sulfate (Polytrim Opthalmic Solution -) 1 drop OS DAILY [facility] Last Admin: 11/09/18 11:10 Dose: 1 drop PHYSICAL EXAMINATION Vital Signs Period Temp Pulse Resp BP Sys/Travis Pulse Ox Last 24 Hr 98.4 F-98.8 F 88-109 20-20 156-199/71-105 GENERAL: Awake, alert, and fully oriented, in mild distress and lethargic EYES: Left eye discharge- dry and crusted, redness, mild superficial swelling and difficult to keep open. Pupils equal, round and reactive to light, extraocular movements intact, EARS, NOSE, THROAT: Vesicular rash on the left forehead present. Oropharynx clear without exudates. Moist mucous membranes. NECK: Normal range of motion, supple without lymphadenopathy, JVD, or masses. LUNGS: Breath sounds equal, clear to auscultation bilaterally. No wheezes, and no crackles. No accessory muscle use. HEART: Regular rate and rhythm, normal S1 and S2 without murmur, rub or gallop. ABDOMEN: Soft, nontender, not distended, normoactive bowel sounds, no guarding, no rebound, no masses. No hepatomegaly or splenomegaly. MUSCULOSKELETAL: No CVA tenderness. UPPER EXTREMITIES: 2+ pulses, warm, well-perfused. No cyanosis. No peripheral edema. LOWER EXTREMITIES: 2+ pulses, warm, well-perfused. No peripheral edema. NEUROLOGICAL: AWake, alert, not participating in confrontation testing but moves extremities grossly, sensory intact PSYCHIATRIC: Cooperative. Good eye contact. Appropriate mood and affect. CBCD WBC 7.1 K/mm3 (4.0-10.0) 11/10/18 07:15 RBC 3.41 M/mm3 (3.60-5.2) L 11/10/18 07:15 Hgb 10.6 GM/dL (10.7-15.3) L 11/10/18 07:15 Hct 31.7 % (32.4-45.2) L 11/10/18 07:15 MCV 93.1 fl (80-96) 11/10/18 07:15 MCHC 33.5 g/dl (32.0-36.0) 11/10/18 07:15 RDW 13.3 % (11.6-15.6) 11/10/18 07:15 Plt Count 173 K/MM3 (134-434) 11/10/18 07:15 MPV 8.2 fl (7.5-11.1) 11/10/18 07:15 CMP Sodium 136 mmol/L (136-145) 11/10/18 07:15 Potassium 4.4 mmol/L (3.5-5.1) 11/10/18 07:15 Chloride 100 mmol/L (98-107) 11/10/18 07:15 Carbon Dioxide 24 mmol/L (21-32) 11/10/18 07:15 Anion Gap 13 MMOL/L (8-16) 11/10/18 07:15 BUN 39.8 mg/dL (7-18) H 11/10/18 07:15 Creatinine 8.3 mg/dL (0.55-1.3) H* 11/10/18 07:15 Random Glucose 155 mg/dL (74-106) H 11/10/18 07:15 Calcium 7.8 mg/dL (8.5-10.1) L 11/10/18 07:15 Total Bilirubin 0.4 mg/dL (0.2-1) 11/10/18 07:15 AST 13 U/L (15-37) L 11/10/18 07:15 ALT 11 U/L (13-61) L 11/10/18 07:15 Alkaline Phosphatase 60 U/L (45-117) 11/10/18 07:15 Total Protein 7.4 g/dl (6.4-8.2) 11/10/18 07:15 Albumin 3.1 g/dl (3.4-5.0) L 11/10/18 07:15 CARDIAC ENZYMES Creatine Kinase 58 U/L (26-192) 11/07/18 19:33 Troponin I < 0.02 ng/ml (0.00-0.05) 11/07/18 19:33 ASSESSMENT/PLAN: 68 y/o F, pmh of htn, dm type 2, hld, cva, esrd on dialysis via left arm fistula presents to the ED c/o of eye infection and weakness of one day duration associated with nausea, nbnb vomiting and nonbloody diarrhea. Pt reports that she was in the hospital yesterday for a herpes zoster eye infection but was sent to the ophthalmologists office, who prescribed her valacyclovir and polymixin eye drops. Her symptoms began few hours after taking her antiviral and has persisted since. She reports she does dialysis // Mon and her last dialysis was yesterday afternoon. Currently, she no longer has n/v/d but still c/o of weakness and eye discharge and pain. In the ED, pt was hypertensive at 218/103 which was controlled after administration of losartan and nifedipine. Pt is a poor historian and has multiple admissions for AMS and confusion. In the past dr. Correia has suggested hypertensive encephalopathy which could be the cause of pt's worsening cognition. Denies f/c/n/v/d/ sob, chest pain, facial pain or numbness, paresthesia, abdominal pain. Ct head was completed and did not show any acute changes. Patient seen monday morning with resident at bedside and is more awake and alert, follows simple commands as she is able to squeeze my hand Discussed with son who was outside room and he reported that she was completely lethargic last night so it seems her mental status is improving. Certainly, only blood pressure can lead to status changes as well as underlying infection and she does seem fatigued. Brain MRI completed , report pending. Discussed with hospitalized, mental status waxes and wanes. Can be alert at times but other times somnolent, not consistent with herpes encephalitis in which case patient would be persistently lethargic, not communicative. Is on Acylclovir, advised checking with ID if other cyclovir medications are stronger. Do recommend continuing optimization of infection. Patient on acyclovir, ID follow-up. Continue hemodialysis, optimize renal status. monitor glucose, maintain euglycemic range. Monitor LDL, continue statin.
[2018-11-10] MEDS: NIFEdipine E.R. 90 MG TABLET (FP) PO SCH (11:00)
[2018-11-10] MEDS: CARVEDILOL 6.25 MG TABLET (FP) PO SCH ×2 (11:00→21:32)
[2018-11-10] MEDS: ASPIRIN 81 MG CHEWABLE TABLETS PO SCH (11:00)
[2018-11-10] MEDS: MEMANTINE HCL 10 MG TABLET (FP) PO SCH ×2 (11:00→21:32)
[2018-11-10] MEDS: LOSARTAN POTASSIUM 25 MG TABLET PO SCH (11:00)
[2018-11-10] MEDS: POLYMYXIN B SULFATE/TMP 10 ML OPHTHALMIC SOLUTION OS SCH (11:03)
--- NOTE | 2018-11-10 11:51 | PN ---
Progress Note (short form) - Note Progress Note: alert but appears confused- seen by neurology opens eyes follows simple commands Vital Signs Period Temp Pulse Resp BP Sys/Travis Pulse Ox Last 24 Hr 98 F-98.8 F 60-109 18-20 106-199/54-105 cor-rrr lungs decreased bs at bases abd soft,nt ext no edema rash on left forehead is drying CBC, BMP 11/10/18 07:15 11/10/18 07:15 Microbiology 11/08/18 20:00 Blood - Arterial Blood Culture - Preliminary NO GROWTH OBTAINED AFTER 24 HOURS, INCUBATION TO CONTINUE FOR 4 DAYS. 11/08/18 20:00 Blood - Arterial Blood Culture - Preliminary NO GROWTH OBTAINED AFTER 24 HOURS, INCUBATION TO CONTINUE FOR 4 DAYS. Current Medications Aspirin (Asa -) 81 mg PO DAILY [facility] Last Admin: 11/10/18 11:00 Dose: 81 mg Atorvastatin Calcium (Lipitor -) 40 mg PO HS [facility] Last Admin: 11/09/18 22:38 Dose: 40 mg Carvedilol (Coreg -) 6.25 mg PO BID [facility] Last Admin: 11/10/18 11:00 Dose: 6.25 mg Donepezil HCl (Aricept -) 10 mg PO HS [facility] Last Admin: 11/09/18 22:39 Dose: 10 mg Heparin Sodium (Porcine) (Heparin -) 5,000 unit SQ TID [facility] Last Admin: 11/09/18 22:38 Dose: 5,000 unit Acyclovir 350 mg/ Dextrose 107 mls @ 107 mls/hr IVPB Q24H [facility] Sodium Chloride (Normal Saline -) 250 mls @ 3,000 mls/hr IV PRN PRN PRN Reason: Hypotension during Dialysis Stop: 11/10/18 11:58 Insulin Aspart (Novolog Vial Sliding Scale -) 1 vial SQ ACHS [facility]; Protocol Last Admin: 11/09/18 22:40 Dose: 2 unit Losartan Potassium (Cozaar -) 25 mg PO DAILY [facility] Last Admin: 11/10/18 11:00 Dose: 25 mg Memantine (Namenda -) 10 mg PO BID [facility] Last Admin: 11/10/18 11:00 Dose: 10 mg Metoprolol Tartrate (Lopressor Injection -) 5 mg IVPUSH Q4H PRN PRN Reason: SYSTOLIC BP >140 Metoprolol Tartrate (Lopressor Injection -) 5 mg IVPUSH Q6H [facility] Last Admin: 11/09/18 15:14 Dose: Not Given Nifedipine (Procardia Xl -) 90 mg PO DAILY [facility] Last Admin: 11/10/18 11:00 Dose: Not Given Polymyxin/Trimethoprim Sulfate (Polytrim Opthalmic Solution -) 1 drop OS DAILY [facility] Last Admin: 11/10/18 11:03 Dose: 1 drop a/p herpes zoster- continue acyclovir adjusted for renal failure per dr stevie wheatley consult seen by neurology -MRI pending, t/c LP if she remains confused
--- NOTE | 2018-11-10 14:58 | PN ---
Progress Note, Physician History of Present Illness: Pt seen and examined at bedside. She remains confused. - Current Medication List Current Medications: Active Medications Aspirin (Asa -) 81 mg PO DAILY [facility] Last Admin: 11/10/18 11:00 Dose: 81 mg Atorvastatin Calcium (Lipitor -) 40 mg PO HS [facility] Last Admin: 11/09/18 22:38 Dose: 40 mg Carvedilol (Coreg -) 6.25 mg PO BID [facility] Last Admin: 11/10/18 11:00 Dose: 6.25 mg Donepezil HCl (Aricept -) 10 mg PO HS [facility] Last Admin: 11/09/18 22:39 Dose: 10 mg Heparin Sodium (Porcine) (Heparin -) 5,000 unit SQ TID [facility] Last Admin: 11/09/18 22:38 Dose: 5,000 unit Acyclovir 350 mg/ Dextrose 107 mls @ 107 mls/hr IVPB Q24H [facility] Sodium Chloride (Normal Saline -) 250 mls @ 3,000 mls/hr IV PRN PRN PRN Reason: Hypotension during Dialysis Stop: 11/10/18 11:58 Insulin Aspart (Novolog Vial Sliding Scale -) 1 vial SQ [facility]; Protocol Last Admin: 11/09/18 22:40 Dose: 2 unit Losartan Potassium (Cozaar -) 25 mg PO DAILY [facility] Last Admin: 11/10/18 11:00 Dose: 25 mg Memantine (Namenda -) 10 mg PO BID [facility] Last Admin: 11/10/18 11:00 Dose: 10 mg Metoprolol Tartrate (Lopressor Injection -) 5 mg IVPUSH Q4H PRN PRN Reason: SYSTOLIC BP >140 Metoprolol Tartrate (Lopressor Injection -) 5 mg IVPUSH Q6H [facility] Last Admin: 11/09/18 15:14 Dose: Not Given Nifedipine (Procardia Xl -) 90 mg PO DAILY [facility] Last Admin: 11/10/18 11:00 Dose: Not Given Polymyxin/Trimethoprim Sulfate (Polytrim Opthalmic Solution -) 1 drop OS DAILY [facility] Last Admin: 11/10/18 11:03 Dose: 1 drop - Objective Vital Signs: Vital Signs Temperature 98 F 11/10/18 07:10 Pulse Rate 64 11/10/18 11:15 Respiratory Rate 19 11/10/18 11:15 Blood Pressure 162/94 11/10/18 11:15 O2 Sat by Pulse Oximetry (%) 97 11/08/18 21:00 Constitutional: Yes: Calm Eyes: Yes: Conjunctiva Clear HENT: Yes: Atraumatic Neck: Yes: Supple Cardiovascular: Yes: S1, S2 Respiratory: Yes: CTA Bilaterally Genitourinary: Yes: Incontinence Edema: Yes Edema: LLE: Trace, RLE: Trace Integumentary: Yes: WNL Neurological: Yes: Confusion Labs: CBC, BMP 11/10/18 07:15 11/10/18 07:15 INR, PTT INR 0.98 (0.83-1.09) 11/08/18 20:00 Assessment/Plan Current Medications Generic Name Dose Route Start Last Admin Trade Name Freq PRN Reason Stop Dose Admin Aspirin 81 mg 11/08/18 10:00 11/10/18 11:00 Asa - PO 81 mg DAILY [facility] Administration Atorvastatin Calcium 40 mg 11/08/18 22:00 11/09/18 22:38 Lipitor - PO 40 mg HS [facility] Administration Carvedilol 6.25 mg 11/08/18 10:00 11/10/18 11:00 Coreg - PO 6.25 mg BID [facility] Administration Donepezil HCl 10 mg 11/08/18 22:00 11/09/18 22:39 Aricept - PO 10 mg HS [facility] Administration Heparin Sodium (Porcine) 5,000 unit 11/08/18 06:00 11/09/18 22:38 Heparin - SQ 5,000 unit TID [facility] Administration Acyclovir 350 mg/ Dextrose 107 mls @ 107 mls/hr 11/10/18 20:00 IVPB Q24H [facility] Sodium Chloride 250 mls @ 3,000 mls/hr 11/09/18 11:58 Normal Saline - IV 11/10/18 11:58 PRN PRN Hypotension during Dialysis Insulin Aspart 1 vial 11/08/18 07:00 11/09/18 22:40 Novolog Vial Sliding Scale - SQ 2 unit ACHS [facility] Administration Protocol Losartan Potassium 25 mg 11/08/18 10:00 11/10/18 11:00 Cozaar - PO 25 mg DAILY [facility] Administration Memantine 10 mg 11/08/18 10:00 11/10/18 11:00 Namenda - PO 10 mg BID [facility] Administration Metoprolol Tartrate 5 mg 11/08/18 16:49 Lopressor Injection - IVPUSH Q4H PRN SYSTOLIC BP >140 Metoprolol Tartrate 5 mg 11/08/18 17:30 11/09/18 15:14 Lopressor Injection - IVPUSH Not Given Q6H [facility] Nifedipine 90 mg 11/08/18 10:00 11/10/18 11:00 Procardia Xl - PO Not Given DAILY [facility] Polymyxin/Trimethoprim Sulfate 1 drop 11/08/18 00:45 11/10/18 11:03 Polytrim Opthalmic Solution - OS 1 drop DAILY [facility] Administration Impression 1. ESRD on HD 2. Hyperkalemia 3. Altered mental status of unclear etiology (CT of the head showed no acute infacts but several older infacts) 5. Hypertension 6. Diarrhea Plan - HD today - mental status does not seem to be changed after HD - continue Acyclovir as per ID - continue supportive care - renal diet
[2018-11-10] MEDS: ACYCLOVIR INJECTION 350 MG in DEXTROSE 5%-WATER - 100 ML IVPB SCH (20:15)
[2018-11-10] MEDS ORDERED: INSULIN (NOVOLOG) ASPART 100 UNITS/ML 10ML VIAL ONE (21:13)
[2018-11-10] MEDS: INSULIN SLIDING SCALE (NOVOLOG) 1 VIAL SQ SCH (21:27)
[2018-11-10] MEDS: HEPARIN NA (PORCINE) 5,000 UNITS/ML 1ML VIAL SQ SCH (21:29)
[2018-11-10] MEDS: DONEPEZIL HCL 10 MG TABLET (FP) PO SCH (21:32)
[2018-11-10] MEDS: ATORVASTATIN CA 40 MG TABLET (FP) PO SCH (21:32)
[2018-11-10] MEDS: METOPROLOL TARTRATE 5 MG/5 ML VIAL IVPUSH SCH (23:15)
[2018-11-11] MEDS: HEPARIN NA (PORCINE) 5,000 UNITS/ML 1ML VIAL SQ SCH ×4 (06:11→22:35)
[2018-11-11] MEDS: INSULIN SLIDING SCALE (NOVOLOG) 1 VIAL SQ SCH ×6 (06:11→21:18)
[2018-11-11] MEDS: METOPROLOL TARTRATE 5 MG/5 ML VIAL IVPUSH SCH ×4 (06:12→23:40)
[2018-11-11 06:20] LABS: HEMATOCRIT 31.7 % (32.4-45.2); HEMOGLOBIN 10.6 GM/dL (10.7-15.3); MCH 31.5 pg (25.7-33.7); MCHC 33.5 g/dl (32.0-36.0); MEAN PLT VOLUME 7.6 fl (7.5-11.1); PLATELET COUNT 172 K/MM3 (134-434); RBC 3.37 M/mm3 (3.60-5.2); RDW 13.9 % (11.6-15.6); WHITE BLOOD COUNT 7.2 K/mm3 (4.0-10.0)
[2018-11-11 06:52] LABS: BLOOD UREA NITROGEN 29.7 mg/dL (7-18); CALCIUM 8.3 mg/dL (8.5-10.1); CREATININE 6.1 mg/dL (0.55-1.3); PHOSPHOROUS 3.7 mg/dL (2.5-4.9)
[2018-11-11] MEDS: ASPIRIN 81 MG CHEWABLE TABLETS PO SCH (10:09)
[2018-11-11] MEDS: LOSARTAN POTASSIUM 25 MG TABLET PO SCH (10:09)
[2018-11-11] MEDS: CARVEDILOL 6.25 MG TABLET (FP) PO SCH ×2 (10:09→21:17)
[2018-11-11] MEDS: NIFEdipine E.R. 90 MG TABLET (FP) PO SCH (10:10)
[2018-11-11] MEDS: POLYMYXIN B SULFATE/TMP 10 ML OPHTHALMIC SOLUTION OS SCH (10:12)
--- NOTE | 2018-11-11 10:38 | PN ---
Teaching Attending Note Name of Resident: Shelby Cervantes ATTENDING PHYSICIAN STATEMENT I saw and evaluated the patient. I reviewed the resident's note and discussed the case with the resident. I agree with the resident's findings and plan as documented. SUBJECTIVE:asymptomatic. does not admit to having blurred vision or vision issues but according to daughter she had blurred vision yesterday. denies CP, SOB, fever, chills, N/V/C/D OBJECTIVE: Last Vital Signs Temp Pulse Resp BP Pulse Ox 98.3 F 82 24 H 168/90 97 11/11/18 04:00 11/11/18 06:12 11/11/18 04:00 11/11/18 06:12 11/08/18 21:00 General A&O x3 however asks repeatively why in the hospital. speaking clear Syrian today HEENT L eye vessicles medial and scattered on lateral aspect. appear dry but not fully crusted. some greenish drainage from eye CV S1 s2 RRR +murmur Lungs CTA B/L No wheezing/rales/rhonchi Abdomen soft NT/ND extremiteis +LUE palpable thrill Neuro follow simple commands vision decreased acuity to L eye ASSESSMENT AND PLAN: 68yo F wtih PMH DM, ESRD on HD (TTS), CVA, and recently diagnosed zoster opthalmicus which she was started on valtrex and vomited and developed diarrhea. Became agitated last night and received ativan which she subsequently fell afterwards. 1. Acute metabolic encephalopathy- likely due to ativan administration vs herpetic encephalopthy. mental status seems to be improved this am and speech more fluid. MRI done, awaiting read. may need LP if mental status does not improve. Neuro consult. Frequent neurochecks 2. Nausea and vomiting- could be due to valtrex intolerance vs HTN urgency. no reports here in the Er. will cont with gentle hydration until mental status improves and then can trial diet 3. blurred vision- liekly due to active infection surrounding eye. E eye grossly intact on Snellen chart. will follow L eye. optho consult 4. 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 will need to be given after HD. optho and ID consulted. contact precautions. 5. HTN urgency- labile. has not been consistently get her medications. encourage to give all meds and notify MD if unable to give. will need to monitor closely 6. hyponatremia- due to dehydration from vomiting. now resolved 7. Hyperkalemia- resolved 8. Mechanical fall- possible due to ativan dose. PT eval 9. ESRD on HD- TTS schedule. did not tolerate HD yesterday due to hypoxia and session cut short. pt is confused but doubt uremia is factor here. HD per nephro. 10. DM- hold oral agents. Iss and bgm 11. CVA 12. DVT ppx- hep sq
--- NOTE | 2018-11-11 11:24 | PN ---
Physical Exam: SUBJECTIVE: Patient seen and examined. AMS appears to be improving. Pt is verbalizing more in korean and welsh. Able to answer most questions but confused as to why she is in the hospital, although AOx3. Denies CP/ SOB/ N/V/ D. Afebrile. Tolerating PO diet and meds. As per nursing note pt's family visited last night, being verbally abusive to nursing staff and refusing to comply w/ contact precautions. OBJECTIVE: Vital Signs Period Temp Pulse Resp BP Sys/Travis Pulse Ox Last 24 Hr 98.3 F-98.8 F 64-99 19-24 160-191/89-94 GENERAL: AOx3, oriented to self, location & year. HEAD: L forehead herpetic lesion in V1 distribution no crusting visible EYES: L sided periorbital edema with mild yellow/ green crusting present. Conjunctival injection present to left orbit. Right eye: no conj injection, no icterus, no edema. ENT: Oropharynx clear without exudates, moist mucous membranes. Dry cracking present periorally. NECK: No lymphadenopathy LUNGS: CTABL, no wheezes, no crackles, no accessory muscle use. HEART: Regular rate and rhythm, S1, S2 without murmurs ABDOMEN: Soft, nontender, nondistended, normoactive bowel sounds, no guarding EXTREMITIES: 2+ pulses, warm, well-perfused, no edema. HD fistula intact to LUE ; no signs of infection to fistula site Laboratory Results - last 24 hr 11/10/18 11/10/18 11/11/18 11:12 21:26 05:57 WBC 7.2 RBC 3.37 L Hgb 10.6 L Hct 31.7 L MCV 94.0 MCH 31.5 MCHC 33.5 RDW 13.9 Plt Count 172 MPV 7.6 Sodium Potassium Chloride Carbon Dioxide Anion Gap BUN Creatinine Est GFR (CKD-EPI)AfAm Est GFR (CKD-EPI)NonAf POC Glucometer 170 249 Random Glucose Calcium Phosphorus 11/11/18 11/11/18 05:57 06:09 WBC RBC Hgb Hct MCV MCH MCHC RDW Plt Count MPV Sodium 143 Potassium 4.0 Chloride 105 Carbon Dioxide 29 Anion Gap 9 BUN 29.7 H Creatinine 6.1 H Est GFR (CKD-EPI)AfAm 7.64 Est GFR (CKD-EPI)NonAf 6.59 POC Glucometer 153 Random Glucose 158 H Calcium 8.3 L Phosphorus 3.7 Active Medications Generic Name Dose Route Start Last Admin Trade Name Lars PRN Reason Stop Dose Admin Aspirin 81 mg 11/08/18 10:00 11/11/18 10:09 Asa - PO 81 mg DAILY [facility] Administration Atorvastatin Calcium 40 mg 11/08/18 22:00 11/10/18 21:32 Lipitor - PO 40 mg HS [facility] Administration Carvedilol 6.25 mg 11/08/18 10:00 11/11/18 10:09 Coreg - PO 6.25 mg BID [facility] Administration Heparin Sodium (Porcine) 5,000 unit 11/08/18 06:00 11/11/18 06:11 Heparin - SQ 5,000 unit TID [facility] Administration Acyclovir 350 mg/ Dextrose 107 mls @ 107 mls/hr 11/10/18 20:00 11/10/18 20:15 IVPB 107 mls/hr Q24H [facility] Administration Sodium Chloride 250 mls @ 3,000 mls/hr 11/09/18 11:58 Normal Saline - IV 11/10/18 11:58 PRN PRN Hypotension during Dialysis Insulin Aspart 1 vial 11/08/18 07:00 11/11/18 06:11 Novolog Vial Sliding Scale - SQ 2 unit ACHS [facility] Administration Protocol Losartan Potassium 25 mg 11/08/18 10:00 11/11/18 10:09 Cozaar - PO 25 mg DAILY [facility] Administration Metoprolol Tartrate 5 mg 11/08/18 16:49 Lopressor Injection - IVPUSH Q4H PRN SYSTOLIC BP >140 Metoprolol Tartrate 5 mg 11/08/18 17:30 11/11/18 06:12 Lopressor Injection - IVPUSH 5 mg Q6H [facility] Administration Nifedipine 90 mg 11/08/18 10:00 11/11/18 10:10 Procardia Xl - PO 90 mg DAILY [facility] Administration Polymyxin/Trimethoprim Sulfate 1 drop 11/08/18 00:45 11/11/18 10:12 Polytrim Opthalmic Solution - OS 1 drop DAILY [facility] Administration ASSESSMENT/PLAN: 68 y.o. F PMH HTN, HLD, DM2, CVA, ESRD on HD Tu//Sat, recent diagnosis of herpes opthalmicus (started on acyclovir) presented for generalized weakness , nausea, NBNB emesis and diarrhea. #Acute metabolic encephalopathy -Sxs began post- Ativan administration in ED -Pt had fallen in ED 11/07; CT head (x2) negative for acute pathology -EKG: qtc 482, NSR -F/u MRI brain to r/o new infarcts- completed, pending read -Consider LP if no improvement in mental status -Hep panel neg -Frequent neuro checks -Dr. Johnson (neuro) following: does not believe this to be herpes encephalitis as AMS is improving #Herpes ophthalmicus -C/w IV acyclovir 350mg IV daily in evenings, adjusted for ESRD -ID on board (Dr. Dinero) -F/u ophtho (Dr. Locke) -Left CT orbit results appreciated -Contact precautions #Generalized nausea/ vomiting/ diarrhea -Resolved -Monitor vitals #Hypertensive urgency -S/p Nifedipine, losartan in ED -Metoprolol 5mg IV q6h -C/w Coreg 6.25mg PO BID, losartan 25mg PO daily, nifedipine 90mg PO daily #Hyperkalemia -Resolved #Hyponatremia -Improving #HLD -Atorvastatin 40mg PO daily #DM -Holding home meds -ISS -BGM #ESRD -C/w hemodialysis Tues/ Th/ Sat -Nephro following (Dr. Campoverde, Dr. Tan) #FEN -No standing fluids -Trend lytes -Soft Na controlled diet #DVT PPX -Heparin 5,000 SQ TID Visit type - Emergency Visit Emergency Visit: No - New Patient This patient is new to me today: No - Critical Care Critical Care patient: No ATTENDING PHYSICIAN STATEMENT I saw and evaluated the patient. I reviewed the resident's note and discussed the case with the resident. I agree with the resident's findings and plan as documented. SUBJECTIVE: OBJECTIVE: ASSESSMENT AND PLAN:
--- NOTE | 2018-11-11 11:35 | PN ---
Progress Note (short form) - Note Progress Note: Neurology CHIEF COMPLAINT: weakness HISTORY OF PRESENT ILLNESS: 68 y/o F, pmh of htn, dm type 2, hld, cva, esrd on dialysis via left arm fistula presents to the ED c/o of eye infection and weakness of one day duration associated with nausea, nbnb vomiting and nonbloody diarrhea. Pt reports that she was in the hospital yesterday for a herpes zoster eye infection but was sent to the ophthalmologists office, who prescribed her valacyclovir and polymixin eye drops. Her symptoms began few hours after taking her antiviral and has persisted since. She reports she does dialysis // Mon and her last dialysis was yesterday afternoon. Currently, she no longer has n/v/d but still c/o of weakness and eye discharge and pain. In the ED, pt was hypertensive at 218/103 which was controlled after administration of losartan and nifedipine. Pt is a poor historian and has multiple admissions for AMS and confusion. In the past dr. Correia has suggested hypertensive encephalopathy which could be the cause of pt's worsening cognition. Denies f/c/n/v/d/ sob, chest pain, facial pain or numbness, paresthesia, abdominal pain. Ct head was completed and did not show any acute changes. Patient seen monday morning with resident at bedside and is more awake and alert, follows simple commands as she is able to squeeze my hand Discussed with son who was outside room and he reported that she was completely lethargic last night so it seems her mental status is improving. Certainly, only blood pressure can lead to status changes as well as underlying infection and she does seem fatigued Do recommend continuing optimization of infection. Brain MRI completed, report pending at this time. Discussed with hospitalized, mental status waxes and wanes. Can be alert at times but other times somnolent, not consistent with herpes encephalitis in which case patient would be persistently lethargic, not communicative. Is on Acylclovir, advised checking with ID if other cyclovir medications are stronger. Today, more awake and alert. Can tell me she's at [facility] as well as month is October and year is 2019. Mental status seems considerably better to me. Daughter at bedside during encounter and discussed with her as well. Active Medications Aspirin (Asa -) 81 mg PO DAILY [facility] Last Admin: 11/11/18 10:09 Dose: 81 mg Atorvastatin Calcium (Lipitor -) 40 mg PO HS [facility] Last Admin: 11/10/18 21:32 Dose: 40 mg Carvedilol (Coreg -) 6.25 mg PO BID [facility] Last Admin: 11/11/18 10:09 Dose: 6.25 mg Heparin Sodium (Porcine) (Heparin -) 5,000 unit SQ TID [facility] Last Admin: 11/11/18 06:11 Dose: 5,000 unit Acyclovir 350 mg/ Dextrose 107 mls @ 107 mls/hr IVPB Q24H [facility] Last Admin: 11/10/18 20:15 Dose: 107 mls/hr Sodium Chloride (Normal Saline -) 250 mls @ 3,000 mls/hr IV PRN PRN PRN Reason: Hypotension during Dialysis Stop: 11/10/18 11:58 Insulin Aspart (Novolog Vial Sliding Scale -) 1 vial SQ ACHS [facility]; Protocol Last Admin: 11/11/18 06:11 Dose: 2 unit Losartan Potassium (Cozaar -) 25 mg PO DAILY [facility] Last Admin: 11/11/18 10:09 Dose: 25 mg Metoprolol Tartrate (Lopressor Injection -) 5 mg IVPUSH Q4H PRN PRN Reason: SYSTOLIC BP >140 Metoprolol Tartrate (Lopressor Injection -) 5 mg IVPUSH Q6H [facility] Last Admin: 11/11/18 06:12 Dose: 5 mg Nifedipine (Procardia Xl -) 90 mg PO DAILY [facility] Last Admin: 11/11/18 10:10 Dose: 90 mg Polymyxin/Trimethoprim Sulfate (Polytrim Opthalmic Solution -) 1 drop OS DAILY [facility] Last Admin: 11/11/18 10:12 Dose: 1 drop PHYSICAL EXAMINATION Vital Signs Period Temp Pulse Resp BP Sys/Travis Pulse Ox Last 24 Hr 98.3 F-98.8 F 82-99 20-24 160-191/89-92 GENERAL: Awake, alert, and fully oriented, in mild distress and lethargic EYES: Left eye discharge- dry and crusted, redness, mild superficial swelling and difficult to keep open. Pupils equal, round and reactive to light, extraocular movements intact, EARS, NOSE, THROAT: Vesicular rash on the left forehead present. Oropharynx clear without exudates. Moist mucous membranes. NECK: Normal range of motion, supple without lymphadenopathy, JVD, or masses. LUNGS: Breath sounds equal, clear to auscultation bilaterally. No wheezes, and no crackles. No accessory muscle use. HEART: Regular rate and rhythm, normal S1 and S2 without murmur, rub or gallop. ABDOMEN: Soft, nontender, not distended, normoactive bowel sounds, no guarding, no rebound, no masses. No hepatomegaly or splenomegaly. MUSCULOSKELETAL: No CVA tenderness. UPPER EXTREMITIES: 2+ pulses, warm, well-perfused. No cyanosis. No peripheral edema. LOWER EXTREMITIES: 2+ pulses, warm, well-perfused. No peripheral edema. NEUROLOGICAL: AWake, alert, not participating in confrontation testing but moves extremities grossly, sensory intact PSYCHIATRIC: Cooperative. Good eye contact. Appropriate mood and affect. CBCD WBC 7.2 K/mm3 (4.0-10.0) 11/11/18 05:57 RBC 3.37 M/mm3 (3.60-5.2) L 11/11/18 05:57 Hgb 10.6 GM/dL (10.7-15.3) L 11/11/18 05:57 Hct 31.7 % (32.4-45.2) L 11/11/18 05:57 MCV 94.0 fl (80-96) 11/11/18 05:57 MCHC 33.5 g/dl (32.0-36.0) 11/11/18 05:57 RDW 13.9 % (11.6-15.6) 11/11/18 05:57 Plt Count 172 K/MM3 (134-434) 11/11/18 05:57 MPV 7.6 fl (7.5-11.1) 11/11/18 05:57 CMP Sodium 143 mmol/L (136-145) 11/11/18 05:57 Potassium 4.0 mmol/L (3.5-5.1) 11/11/18 05:57 Chloride 105 mmol/L (98-107) 11/11/18 05:57 Carbon Dioxide 29 mmol/L (21-32) 11/11/18 05:57 Anion Gap 9 MMOL/L (8-16) 11/11/18 05:57 BUN 29.7 mg/dL (7-18) H 11/11/18 05:57 Creatinine 6.1 mg/dL (0.55-1.3) H 11/11/18 05:57 Calcium 8.3 mg/dL (8.5-10.1) L 11/11/18 05:57 Total Bilirubin 0.4 mg/dL (0.2-1) 11/10/18 07:15 AST 13 U/L (15-37) L 11/10/18 07:15 ALT 11 U/L (13-61) L 11/10/18 07:15 Alkaline Phosphatase 60 U/L (45-117) 11/10/18 07:15 Total Protein 7.4 g/dl (6.4-8.2) 11/10/18 07:15 Albumin 3.1 g/dl (3.4-5.0) L 11/10/18 07:15 ASSESSMENT/PLAN: 68 y/o F, pmh of htn, dm type 2, hld, cva, esrd on dialysis via left arm fistula presents to the ED c/o of eye infection and weakness of one day duration associated with nausea, nbnb vomiting and nonbloody diarrhea. Pt reports that she was in the hospital yesterday for a herpes zoster eye infection but was sent to the ophthalmologists office, who prescribed her valacyclovir and polymixin eye drops. Her symptoms began few hours after taking her antiviral and has persisted since. She reports she does dialysis Tu/Th/ Sat and her last dialysis was yesterday afternoon. Currently, she no longer has n/v/d but still c/o of weakness and eye discharge and pain. In the ED, pt was hypertensive at 218/103 which was controlled after administration of losartan and nifedipine. Pt is a poor historian and has multiple admissions for AMS and confusion. In the past dr. Correia has suggested hypertensive encephalopathy which could be the cause of pt's worsening cognition. Denies f/c/n/v/d/ sob, chest pain, facial pain or numbness, paresthesia, abdominal pain. Ct head was completed and did not show any acute changes. Patient seen monday morning with resident at bedside and is more awake and alert, follows simple commands as she is able to squeeze my hand Discussed with son who was outside room and he reported that she was completely lethargic last night so it seems her mental status is improving. Certainly, only blood pressure can lead to status changes as well as underlying infection and she does seem fatigued. Brain MRI completed , report at this time. Discussed with hospitalized, mental status waxes and wanes. Can be alert at times but other times somnolent, not consistent with herpes encephalitis in which case patient would be persistently lethargic, not communicative. Is on Acylclovir, advised checking with ID if other cyclovir medications are stronger. Today, more awake and alert. Can tell me she's at [facility] as well as month is October and year is 2018. Mental status seems considerably better to me. Daughter at bedside during encounter and discussed with her as well. Do recommend continuing optimization of infection. Patient on acyclovir, ID follow-up. Continue hemodialysis, optimize renal status. monitor glucose, maintain euglycemic range. Monitor LDL, continue statin.
[2018-11-11] MEDS ORDERED: INSULIN (NOVOLOG) ASPART 100 UNITS/ML 10ML VIAL ONE ×2 (11:36→21:08)
--- NOTE | 2018-11-11 13:01 | PN ---
Progress Note (short form) - Note Progress Note: much more alert today grad daughter at bedside she spoke to all her kids by phone and recognized everyone just ate lunch Vital Signs Period Temp Pulse Resp BP Sys/Travis Pulse Ox Last 24 Hr 98.3 F-98.8 F 82-99 20-24 160-191/89-92 cor-rrr lungs clear abd soft,nt rash on left forehead is drying Microbiology 11/08/18 20:00 Blood - Arterial Blood Culture - Preliminary NO GROWTH OBTAINED AFTER 48 HOURS, INCUBATION TO CONTINUE FOR 3 DAYS. 11/08/18 20:00 Blood - Arterial Blood Culture - Preliminary NO GROWTH OBTAINED AFTER 48 HOURS, INCUBATION TO CONTINUE FOR 3 DAYS. Current Medications Aspirin (Asa -) 81 mg PO DAILY [facility] Last Admin: 11/11/18 10:09 Dose: 81 mg Atorvastatin Calcium (Lipitor -) 40 mg PO HS [facility] Last Admin: 11/10/18 21:32 Dose: 40 mg Carvedilol (Coreg -) 6.25 mg PO BID [facility] Last Admin: 11/11/18 10:09 Dose: 6.25 mg Heparin Sodium (Porcine) (Heparin -) 5,000 unit SQ TID [facility] Last Admin: 11/11/18 06:11 Dose: 5,000 unit Acyclovir 350 mg/ Dextrose 107 mls @ 107 mls/hr IVPB Q24H [facility] Last Admin: 11/10/18 20:15 Dose: 107 mls/hr Sodium Chloride (Normal Saline -) 250 mls @ 3,000 mls/hr IV PRN PRN PRN Reason: Hypotension during Dialysis Stop: 11/10/18 11:58 Insulin Aspart (Novolog Vial Sliding Scale -) 1 vial SQ ACHS [facility]; Protocol Last Admin: 11/11/18 11:48 Dose: 2 unit Losartan Potassium (Cozaar -) 25 mg PO DAILY [facility] Last Admin: 11/11/18 10:09 Dose: 25 mg Metoprolol Tartrate (Lopressor Injection -) 5 mg IVPUSH Q4H PRN PRN Reason: SYSTOLIC BP >140 Metoprolol Tartrate (Lopressor Injection -) 5 mg IVPUSH Q6H [facility] Last Admin: 11/11/18 11:53 Dose: Not Given Nifedipine (Procardia Xl -) 90 mg PO DAILY [facility] Last Admin: 11/11/18 10:10 Dose: 90 mg Polymyxin/Trimethoprim Sulfate (Polytrim Opthalmic Solution -) 1 drop OS DAILY [facility] Last Admin: 11/11/18 10:12 Dose: 1 drop a/p herpes zoster- continue acyclovir adjusted for renal failure optho consult mental status improved seen by neurology -MRI pending, t/c LP if she remains confused
--- NOTE | 2018-11-11 15:12 | PN ---
Progress Note, Physician History of Present Illness: Pt seen and examined at bedside. She is more awake and interactive today. Family at bedside. - Current Medication List Current Medications: Active Medications Aspirin (Asa -) 81 mg PO DAILY [facility] Last Admin: 11/11/18 10:09 Dose: 81 mg Atorvastatin Calcium (Lipitor -) 40 mg PO HS [facility] Last Admin: 11/10/18 21:32 Dose: 40 mg Carvedilol (Coreg -) 6.25 mg PO BID [facility] Last Admin: 11/11/18 10:09 Dose: 6.25 mg Heparin Sodium (Porcine) (Heparin -) 5,000 unit SQ TID [facility] Last Admin: 11/11/18 14:21 Dose: 5,000 unit Acyclovir 350 mg/ Dextrose 107 mls @ 107 mls/hr IVPB Q24H [facility] Last Admin: 11/10/18 20:15 Dose: 107 mls/hr Sodium Chloride (Normal Saline -) 250 mls @ 3,000 mls/hr IV PRN PRN PRN Reason: Hypotension during Dialysis Stop: 11/10/18 11:58 Insulin Aspart (Novolog Vial Sliding Scale -) 1 vial SQ [facility]; Protocol Last Admin: 11/11/18 11:48 Dose: 2 unit Losartan Potassium (Cozaar -) 25 mg PO DAILY [facility] Last Admin: 11/11/18 10:09 Dose: 25 mg Metoprolol Tartrate (Lopressor Injection -) 5 mg IVPUSH Q4H PRN PRN Reason: SYSTOLIC BP >140 Metoprolol Tartrate (Lopressor Injection -) 5 mg IVPUSH Q6H [facility] Last Admin: 11/11/18 11:53 Dose: Not Given Nifedipine (Procardia Xl -) 90 mg PO DAILY [facility] Last Admin: 11/11/18 10:10 Dose: 90 mg Polymyxin/Trimethoprim Sulfate (Polytrim Opthalmic Solution -) 1 drop OS DAILY [facility] Last Admin: 11/11/18 10:12 Dose: 1 drop - Objective Vital Signs: Vital Signs Temperature 98.5 F 11/11/18 10:00 Pulse Rate 77 11/11/18 10:00 Respiratory Rate 20 11/11/18 10:00 Blood Pressure 134/64 11/11/18 10:00 O2 Sat by Pulse Oximetry (%) 100 11/11/18 09:00 Constitutional: Yes: Calm Eyes: Yes: Conjunctiva Clear HENT: Yes: Atraumatic Neck: Yes: Supple Cardiovascular: Yes: S1, S2 Respiratory: Yes: CTA Bilaterally Gastrointestinal: Yes: Normal Bowel Sounds, Soft Genitourinary: Yes: Incontinence Musculoskeletal: Yes: WNL Edema: No Neurological: Yes: Other (awake) Labs: CBC, BMP 11/11/18 05:57 11/11/18 05:57 INR, PTT INR 0.98 (0.83-1.09) 11/08/18 20:00 Assessment/Plan Current Medications Generic Name Dose Route Start Last Admin Trade Name Freq PRN Reason Stop Dose Admin Aspirin 81 mg 11/08/18 10:00 11/11/18 10:09 Asa - PO 81 mg DAILY [facility] Administration Atorvastatin Calcium 40 mg 11/08/18 22:00 11/10/18 21:32 Lipitor - PO 40 mg HS [facility] Administration Carvedilol 6.25 mg 11/08/18 10:00 11/11/18 10:09 Coreg - PO 6.25 mg BID [facility] Administration Heparin Sodium (Porcine) 5,000 unit 11/08/18 06:00 11/11/18 14:21 Heparin - SQ 5,000 unit TID [facility] Administration Acyclovir 350 mg/ Dextrose 107 mls @ 107 mls/hr 11/10/18 20:00 11/10/18 20:15 IVPB 107 mls/hr Q24H [facility] Administration Sodium Chloride 250 mls @ 3,000 mls/hr 11/09/18 11:58 Normal Saline - IV 11/10/18 11:58 PRN PRN Hypotension during Dialysis Insulin Aspart 1 vial 11/08/18 07:00 11/11/18 11:48 Novolog Vial Sliding Scale - SQ 2 unit ACHS [facility] Administration Protocol Losartan Potassium 25 mg 11/08/18 10:00 11/11/18 10:09 Cozaar - PO 25 mg DAILY [facility] Administration Metoprolol Tartrate 5 mg 11/08/18 16:49 Lopressor Injection - IVPUSH Q4H PRN SYSTOLIC BP >140 Metoprolol Tartrate 5 mg 11/08/18 17:30 11/11/18 11:53 Lopressor Injection - IVPUSH Not Given Q6H [facility] Nifedipine 90 mg 11/08/18 10:00 11/11/18 10:10 Procardia Xl - PO 90 mg DAILY [facility] Administration Polymyxin/Trimethoprim Sulfate 1 drop 11/08/18 00:45 11/11/18 10:12 Polytrim Opthalmic Solution - OS 1 drop DAILY [facility] Administration Impression 1. ESRD on HD 2. Hyperkalemia 3. Altered mental status of unclear etiology (CT of the head showed no acute infacts but several older infacts) 5. Hypertension 6. Diarrhea Plan - next HD on Monday - mental status is improving - continue Acyclovir as per ID - renal diet
[2018-11-11] MEDS: ATORVASTATIN CA 40 MG TABLET (FP) PO SCH (21:17)
[2018-11-11] MEDS: ACYCLOVIR INJECTION 350 MG in DEXTROSE 5%-WATER - 100 ML IVPB SCH (21:19)
[2018-11-12] MEDS: METOPROLOL TARTRATE 5 MG/5 ML VIAL IVPUSH SCH ×2 (06:03→11:37)
[2018-11-12] MEDS: HEPARIN NA (PORCINE) 5,000 UNITS/ML 1ML VIAL SQ SCH ×4 (06:08→21:01)
[2018-11-12] MEDS: INSULIN SLIDING SCALE (NOVOLOG) 1 VIAL SQ SCH ×6 (06:09→21:02)
[2018-11-12 07:35] LABS: HEMATOCRIT 29.8 % (32.4-45.2); HEMOGLOBIN 9.9 GM/dL (10.7-15.3); MCH 31.3 pg (25.7-33.7); MCHC 33.1 g/dl (32.0-36.0); MEAN CELL VOLUME 94.4 fl (80-96); MEAN PLT VOLUME 8.3 fl (7.5-11.1); PLATELET COUNT 179 K/MM3 (134-434); RBC 3.16 M/mm3 (3.60-5.2); RDW 13.5 % (11.6-15.6); WHITE BLOOD COUNT 7.3 K/mm3 (4.0-10.0)
[2018-11-12 07:46] LABS: BLOOD UREA NITROGEN 44.6 mg/dL (7-18); CALCIUM 7.8 mg/dL (8.5-10.1); MAGNESIUM 2.2 mg/dL (1.8-2.4); PHOSPHOROUS 3.7 mg/dL (2.5-4.9)
[2018-11-12 07:47] LABS: CREATININE 8.1 mg/dL (0.55-1.3)
--- NOTE | 2018-11-12 09:42 | PN ---
Progress Note (short form) - Note Progress Note: Neurology CHIEF COMPLAINT: weakness HISTORY OF PRESENT ILLNESS: 68 y/o F, pmh of htn, dm type 2, hld, cva, esrd on dialysis via left arm fistula presents to the ED c/o of eye infection and weakness of one day duration associated with nausea, nbnb vomiting and nonbloody diarrhea. Pt reports that she was in the hospital yesterday for a herpes zoster eye infection but was sent to the ophthalmologists office, who prescribed her valacyclovir and polymixin eye drops. Her symptoms began few hours after taking her antiviral and has persisted since. She reports she does dialysis // Mon and her last dialysis was yesterday afternoon. Currently, she no longer has n/v/d but still c/o of weakness and eye discharge and pain. In the ED, pt was hypertensive at 218/103 which was controlled after administration of losartan and nifedipine. Pt is a poor historian and has multiple admissions for AMS and confusion. In the past dr. Correia has suggested hypertensive encephalopathy which could be the cause of pt's worsening cognition. Denies f/c/n/v/d/ sob, chest pain, facial pain or numbness, paresthesia, abdominal pain. Ct head was completed and did not show any acute changes. Patient seen monday morning with resident at bedside and is more awake and alert, follows simple commands as she is able to squeeze my hand Discussed with son who was outside room and he reported that she was completely lethargic last night so it seems her mental status is improving. Certainly, only blood pressure can lead to status changes as well as underlying infection and she does seem fatigued Do recommend continuing optimization of infection. Mental status waxes and wanes. Can be alert at times but other times somnolent, not consistent with herpes encephalitis in which case patient would be persistently lethargic, not communicative. Is on Acylclovir, advised checking with ID if other cyclovir medications are stronger. Today, more awake and alert. Can tell me she's at [facility] as well as month is October and year is 2019. Mental status seems considerably better to me. MRI brain completed, noted R degroot radiata and L fronal infarcts, no comment as to acute vs subacute vs chronic. Remains on ASA along with statin. Active Medications Aspirin (Asa -) 81 mg PO DAILY [facility] Last Admin: 11/11/18 10:09 Dose: 81 mg Atorvastatin Calcium (Lipitor -) 40 mg PO HS [facility] Last Admin: 11/10/18 21:32 Dose: 40 mg Carvedilol (Coreg -) 6.25 mg PO BID [facility] Last Admin: 11/11/18 10:09 Dose: 6.25 mg Heparin Sodium (Porcine) (Heparin -) 5,000 unit SQ TID [facility] Last Admin: 11/11/18 06:11 Dose: 5,000 unit Acyclovir 350 mg/ Dextrose 107 mls @ 107 mls/hr IVPB Q24H [facility] Last Admin: 11/10/18 20:15 Dose: 107 mls/hr Sodium Chloride (Normal Saline -) 250 mls @ 3,000 mls/hr IV PRN PRN PRN Reason: Hypotension during Dialysis Stop: 11/10/18 11:58 Insulin Aspart (Novolog Vial Sliding Scale -) 1 vial SQ [facility]; Protocol Last Admin: 11/11/18 06:11 Dose: 2 unit Losartan Potassium (Cozaar -) 25 mg PO DAILY [facility] Last Admin: 11/11/18 10:09 Dose: 25 mg Metoprolol Tartrate (Lopressor Injection -) 5 mg IVPUSH Q4H PRN PRN Reason: SYSTOLIC BP >140 Metoprolol Tartrate (Lopressor Injection -) 5 mg IVPUSH Q6H [facility] Last Admin: 11/11/18 06:12 Dose: 5 mg Nifedipine (Procardia Xl -) 90 mg PO DAILY [facility] Last Admin: 11/11/18 10:10 Dose: 90 mg Polymyxin/Trimethoprim Sulfate (Polytrim Opthalmic Solution -) 1 drop OS DAILY [facility] Last Admin: 11/11/18 10:12 Dose: 1 drop PHYSICAL EXAMINATION Vital Signs Period Temp Pulse Resp BP Sys/Travis Pulse Ox Last 24 Hr 98.3 F-98.8 F 82-99 20-24 160-191/89-92 GENERAL: Awake, alert, and fully oriented, in mild distress and lethargic EYES: Left eye discharge- dry and crusted, redness, mild superficial swelling and difficult to keep open. Pupils equal, round and reactive to light, extraocular movements intact, EARS, NOSE, THROAT: Vesicular rash on the left forehead present. Oropharynx clear without exudates. Moist mucous membranes. NECK: Normal range of motion, supple without lymphadenopathy, JVD, or masses. LUNGS: Breath sounds equal, clear to auscultation bilaterally. No wheezes, and no crackles. No accessory muscle use. HEART: Regular rate and rhythm, normal S1 and S2 without murmur, rub or gallop. ABDOMEN: Soft, nontender, not distended, normoactive bowel sounds, no guarding, no rebound, no masses. No hepatomegaly or splenomegaly. MUSCULOSKELETAL: No CVA tenderness. UPPER EXTREMITIES: 2+ pulses, warm, well-perfused. No cyanosis. No peripheral edema. LOWER EXTREMITIES: 2+ pulses, warm, well-perfused. No peripheral edema. NEUROLOGICAL: AWake, alert, not participating in confrontation testing but moves extremities grossly, sensory intact PSYCHIATRIC: Cooperative. Good eye contact. Appropriate mood and affect. CBCD WBC 7.2 K/mm3 (4.0-10.0) 11/11/18 05:57 RBC 3.37 M/mm3 (3.60-5.2) L 11/11/18 05:57 Hgb 10.6 GM/dL (10.7-15.3) L 11/11/18 05:57 Hct 31.7 % (32.4-45.2) L 11/11/18 05:57 MCV 94.0 fl (80-96) 11/11/18 05:57 MCHC 33.5 g/dl (32.0-36.0) 11/11/18 05:57 RDW 13.9 % (11.6-15.6) 11/11/18 05:57 Plt Count 172 K/MM3 (134-434) 11/11/18 05:57 MPV 7.6 fl (7.5-11.1) 11/11/18 05:57 CMP Sodium 143 mmol/L (136-145) 11/11/18 05:57 Potassium 4.0 mmol/L (3.5-5.1) 11/11/18 05:57 Chloride 105 mmol/L (98-107) 11/11/18 05:57 Carbon Dioxide 29 mmol/L (21-32) 11/11/18 05:57 Anion Gap 9 MMOL/L (8-16) 11/11/18 05:57 BUN 29.7 mg/dL (7-18) H 11/11/18 05:57 Creatinine 6.1 mg/dL (0.55-1.3) H 11/11/18 05:57 Calcium 8.3 mg/dL (8.5-10.1) L 11/11/18 05:57 Total Bilirubin 0.4 mg/dL (0.2-1) 11/10/18 07:15 AST 13 U/L (15-37) L 11/10/18 07:15 ALT 11 U/L (13-61) L 11/10/18 07:15 Alkaline Phosphatase 60 U/L (45-117) 11/10/18 07:15 Total Protein 7.4 g/dl (6.4-8.2) 11/10/18 07:15 Albumin 3.1 g/dl (3.4-5.0) L 11/10/18 07:15 ASSESSMENT/PLAN: 68 y/o F, pmh of htn, dm type 2, hld, cva, esrd on dialysis via left arm fistula presents to the ED c/o of eye infection and weakness of one day duration associated with nausea, nbnb vomiting and nonbloody diarrhea. Pt reports that she was in the hospital yesterday for a herpes zoster eye infection but was sent to the ophthalmologists office, who prescribed her valacyclovir and polymixin eye drops. Her symptoms began few hours after taking her antiviral and has persisted since. She reports she does dialysis Tues/Th/ Sat and her last dialysis was yesterday afternoon. Currently, she no longer has n/v/d but still c/o of weakness and eye discharge and pain. In the ED, pt was hypertensive at 218/103 which was controlled after administration of losartan and nifedipine. Pt is a poor historian and has multiple admissions for AMS and confusion. In the past dr. Correia has suggested hypertensive encephalopathy which could be the cause of pt's worsening cognition. Denies f/c/n/v/d/ sob, chest pain, facial pain or numbness, paresthesia, abdominal pain. Ct head was completed and did not show any acute changes. Patient seen monday morning with resident at bedside and is more awake and alert, follows simple commands as she is able to squeeze my hand Discussed with son who was outside room and he reported that she was completely lethargic last night so it seems her mental status is improving. Certainly, only blood pressure can lead to status changes as well as underlying infection and she does seem fatigued. Brain MRI completed , report at this time. Discussed with hospitalized, mental status waxes and wanes. Can be alert at times but other times somnolent, not consistent with herpes encephalitis in which case patient would be persistently lethargic, not communicative. Is on Acylclovir, advised checking with ID if other cyclovir medications are stronger. Today, more awake and alert. Can tell me she's at [facility] as well as month is October and year is 2018. Mental status seems considerably better to me. Do recommend continuing optimization of infection. Patient on acyclovir, ID follow-up. Continue hemodialysis, optimize renal status. monitor glucose, maintain euglycemic range.. MRI brain completed, noted R degroot radiata and L fronal infarcts, no comment as to acute vs subacute vs chronic. Remains on ASA along with statin. Recommend carotid dopplers, echo for further CVA work up.
[2018-11-12] MEDS ORDERED: INSULIN (NOVOLOG) ASPART 100 UNITS/ML 10ML VIAL ONE (10:33)
[2018-11-12] MEDS: CARVEDILOL 6.25 MG TABLET (FP) PO SCH ×2 (10:45→21:01)
[2018-11-12] MEDS: POLYMYXIN B SULFATE/TMP 10 ML OPHTHALMIC SOLUTION OS SCH (10:45)
[2018-11-12] MEDS: ASPIRIN 81 MG CHEWABLE TABLETS PO SCH (10:45)
[2018-11-12] MEDS: LOSARTAN POTASSIUM 25 MG TABLET PO SCH (10:45)
[2018-11-12] MEDS: NIFEdipine E.R. 90 MG TABLET (FP) PO SCH (10:46)
--- NOTE | 2018-11-12 12:27 | PN ---
Progress Note, Physician History of Present Illness: AWAKE, ALERT IN BED NO COMPLAINTS DENIES L PERIORBITAL PAIN NO EYE PAIN OR CHANGE IN VISUAL ACUITY WAS ABLE TO STAND WITH PT ASSISTANCE AFEBRILE - Current Medication List Current Medications: Active Medications Aspirin (Asa -) 81 mg PO DAILY [facility] Last Admin: 11/12/18 10:45 Dose: 81 mg Atorvastatin Calcium (Lipitor -) 40 mg PO HS [facility] Last Admin: 11/11/18 21:17 Dose: 40 mg Carvedilol (Coreg -) 6.25 mg PO BID [facility] Last Admin: 11/12/18 10:45 Dose: 6.25 mg Heparin Sodium (Porcine) (Heparin -) 5,000 unit SQ TID [facility] Last Admin: 11/12/18 06:08 Dose: 5,000 unit Acyclovir 350 mg/ Dextrose 107 mls @ 107 mls/hr IVPB Q24H [facility] Last Admin: 11/11/18 21:19 Dose: 107 mls/hr Sodium Chloride (Normal Saline -) 250 mls @ 3,000 mls/hr IV PRN PRN PRN Reason: Hypotension during Dialysis Stop: 11/10/18 11:58 Insulin Aspart (Novolog Vial Sliding Scale -) 1 vial SQ ACHS [facility]; Protocol Last Admin: 11/12/18 11:42 Dose: Not Given Losartan Potassium (Cozaar -) 25 mg PO DAILY [facility] Last Admin: 11/12/18 10:45 Dose: 25 mg Metoprolol Tartrate (Lopressor Injection -) 5 mg IVPUSH Q4H PRN PRN Reason: SYSTOLIC BP >140 Metoprolol Tartrate (Lopressor Injection -) 5 mg IVPUSH Q6H [facility] Last Admin: 11/12/18 11:37 Dose: Not Given Nifedipine (Procardia Xl -) 90 mg PO DAILY [facility] Last Admin: 11/12/18 10:46 Dose: 90 mg Polymyxin/Trimethoprim Sulfate (Polytrim Opthalmic Solution -) 1 drop OS DAILY [facility] Last Admin: 11/12/18 10:45 Dose: 1 drop - Objective Vital Signs: Vital Signs Temperature 98.1 F 11/12/18 05:52 Pulse Rate 82 11/12/18 05:52 Respiratory Rate 20 11/12/18 05:52 Blood Pressure 120/56 L 11/12/18 05:52 O2 Sat by Pulse Oximetry (%) 100 11/11/18 20:39 Constitutional: Yes: No Distress Eyes: Yes: Other (DRYING L PERIORBITAL RASH; SL CONJUNCTIVITIS O.S.) Cardiovascular: Yes: Regular Rate and Rhythm, S1, S2 Respiratory: Yes: CTA Bilaterally Gastrointestinal: Yes: Normal Bowel Sounds, Soft. No: Tenderness Labs: CBC, BMP 11/12/18 06:47 11/12/18 06:47 INR, PTT INR 0.98 (0.83-1.09) 11/08/18 20:00 Assessment/Plan VZV L V1 DISTRIBUTION IMPROVED ? TOXIC / METABOLIC ENCEPHALOPATHY RESOLVED ESRD CONT ACV ADJUSTED FOR ESRD DAY #5 OPHTHO F/U PT FOR AMBULATION
--- NOTE | 2018-11-12 13:26 | PN ---
Teaching Attending Note Name of Resident: Trina Mata ATTENDING PHYSICIAN STATEMENT I saw and evaluated the patient. I reviewed the resident's note and discussed the case with the resident. I agree with the resident's findings and plan as documented. SUBJECTIVE:states she feels better today. denies CP, SOb, fever, chills, N/V/C/ D states she does not have any blurred vision OBJECTIVE: Last Vital Signs Temp Pulse Resp BP Pulse Ox 98.1 F 82 20 120/56 L 100 11/12/18 05:52 11/12/18 05:52 11/12/18 05:52 11/12/18 05:52 11/11/18 20:39 General A&O x3 HEENT L eye vessicles medial and scattered on lateral aspect. appear dry but not fully crusted. CV S1 s2 RRR +murmur Lungs CTA B/L No wheezing/rales/rhonchi Abdomen soft NT/ND extremiteis +LUE palpable thrill Neuro follow simple commands vision decreased acuity to L eye, although better than yesterday ASSESSMENT AND PLAN: 68yo F wtih PMH DM, ESRD on HD (TTS), CVA, and recently diagnosed zoster opthalmicus which she was started on valtrex and vomited and developed diarrhea. Became agitated last night and received ativan which she subsequently fell afterwards. 1. Acute metabolic encephalopathy- likely due to ativan. also +Subacute infarct seen on MRI. mental status is improved at this time. cont neurochecks. no need for LP at this time. neuro on board 2. Subacute lacunar infarct L frontal cortex and R degroot radiata- unable to do full neuro exam. will check lipids, check carotid doppler, echo. will need to start plavix and likely upgrade lipitor dosing. will move to tele for cardiac monitoring 3. blurred vision- liekly due to active infection surrounding eye. E eye grossly intact on Snellen chart. will follow L eye. optho consult 4. 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 lesions are dry and starting to crust. will need optho eval due to blurred vision out of same eye although this seems better today. will need to be given after HD. optho and ID consulted. contact precautions. 5. HTN urgency- labile. overall improved as been more compliant with meds here. will need tight BP control given CVA. titrate as needed 6. hyponatremia- due to dehydration from vomiting. now resolved 7. Hyperkalemia- resolved 8. Mechanical fall- possible due to ativan dose. PT eval 9. ESRD on HD- TTS schedule. HD per nephro. 10. DM- hold oral agents. Iss and bgm 11. CVA 12. DVT ppx- hep sq 13. PT eval. will liekly require AUBREY when medically optimized for discharge
[2018-11-12] MEDS ORDERED: ATORVASTATIN CA 80 MG TABLET (FP) PO SCH (13:34)
[2018-11-12] MEDS ORDERED: CLOPIDOGREL BISULFATE 300 MG TABLET PO ONE (13:34)
--- NOTE | 2018-11-12 17:20 | PN ---
Progress Note (short form) - Note Progress Note: Renal follow up for ESRD Pt seen and examined at the bedside awake and alert has no acute complaints no sob, cp, abd pain, fever or chills last dialysis was Monday Vital Signs Temperature 98.6 F 11/12/18 09:00 Pulse Rate 80 11/12/18 09:00 Respiratory Rate 19 11/12/18 09:00 Blood Pressure 117/57 L 11/12/18 09:00 O2 Sat by Pulse Oximetry (%) 100 11/12/18 09:00 Intake & Output 11/09/18 11/10/18 11/11/18 11/12/18 23:59 23:59 23:59 23:59 Intake Total 1802 800 300 495 Output Total 2400 Balance 1802 -1600 300 495 Weight 72.575 kg NAD neck supple, no JVD RRR, no M/R CTA (anterior examination) soft NT/ND, no organomegaly no extremity edema or cyanosis left arm AVF + thrill CBC, BMP 11/12/18 06:47 11/12/18 06:47 Current Medications Aspirin (Asa -) 81 mg PO DAILY [facility] Last Admin: 11/12/18 10:45 Dose: 81 mg Atorvastatin Calcium (Lipitor -) 80 mg PO HS [facility] Carvedilol (Coreg -) 6.25 mg PO BID [facility] Last Admin: 11/12/18 10:45 Dose: 6.25 mg Clopidogrel Bisulfate (Plavix -) 75 mg PO DAILY [facility] Heparin Sodium (Porcine) (Heparin -) 5,000 unit SQ TID [facility] Last Admin: 11/12/18 06:08 Dose: 5,000 unit Acyclovir 350 mg/ Dextrose 107 mls @ 107 mls/hr IVPB Q24H [facility] Last Admin: 11/11/18 21:19 Dose: 107 mls/hr Sodium Chloride (Normal Saline -) 250 mls @ 3,000 mls/hr IV PRN PRN PRN Reason: Hypotension during Dialysis Stop: 11/10/18 11:58 Insulin Aspart (Novolog Vial Sliding Scale -) 1 vial SQ ACHS [facility]; Protocol Last Admin: 11/12/18 11:42 Dose: Not Given Losartan Potassium (Cozaar -) 25 mg PO DAILY [facility] Last Admin: 11/12/18 10:45 Dose: 25 mg Metoprolol Tartrate (Lopressor Injection -) 5 mg IVPUSH Q4H PRN PRN Reason: SYSTOLIC BP >140 Nifedipine (Procardia Xl -) 90 mg PO DAILY [facility] Last Admin: 11/12/18 10:46 Dose: 90 mg Polymyxin/Trimethoprim Sulfate (Polytrim Opthalmic Solution -) 1 drop OS DAILY [facility] Last Admin: 11/12/18 10:45 Dose: 1 drop 68 year old woman with history of ESRD on HD (TTS), hypertension, CAD, CVA, DM who presented from home with generalized weakness/lethargy, 4 day history of diarrhea/poor oral intake and found to have hyperkalemia and AMS. 1. ESRD on HD 2. Hyperkalemia 3. Altered mental status with MRI evidence of cerebral infarction 5. Hypertension 6. Diarrhea no acute need for dialysis today, next tx planned for tomorrow continue iv acyclovir as per ID recs Neurology follow up Clinically improving Nicolas Campoverde DO
--- NOTE | 2018-11-12 17:39 | PN ---
Physical Exam: SUBJECTIVE: Patient seen and examined. No events overnight. Pt reports feeling good today. OBJECTIVE: Vital Signs Period Temp Pulse Resp BP Sys/Travis Pulse Ox Last 24 Hr 98.1 F-98.6 F 80-82 19-20 117-126/56-65 100-100 GENERAL: The patient is awake, alert, and fully oriented, in no acute distress. HEAD: Normal with no signs of trauma. EYES: PERRL, extraocular movements intact, sclera anicteric, conjunctiva clear. No ptosis. Crusting of upper and lower lids on left side. ENT: Ears normal, nares patent, dry mucous membranes, lips crusting NECK: Trachea midline, full range of motion, supple. LUNGS: Diffuse rhonchi HEART: Regular rate and rhythm, 3/6 systolic murmur. ABDOMEN: Soft, nontender, nondistended, normoactive bowel sounds, no guarding EXTREMITIES: 2+ pulses, warm, well-perfused, +1 pitting edema bilateral feet NEUROLOGICAL: Cranial nerves II through XII grossly intact. Normal speech, gait not observed. PSYCH: Normal mood, normal affect. SKIN: Warm, dry, normal turgor, no rashes or lesions noted Laboratory Results - last 24 hr 11/11/18 11/11/18 11/12/18 17:47 21:16 06:07 WBC RBC Hgb Hct MCV MCH MCHC RDW Plt Count MPV Sodium Potassium Chloride Carbon Dioxide Anion Gap BUN Creatinine Est GFR (CKD-EPI)AfAm Est GFR (CKD-EPI)NonAf POC Glucometer 300 207 189 Random Glucose Calcium Phosphorus Magnesium 11/12/18 11/12/18 11/12/18 06:47 06:47 11:39 WBC 7.3 RBC 3.16 L Hgb 9.9 L Hct 29.8 L MCV 94.4 MCH 31.3 MCHC 33.1 RDW 13.5 Plt Count 179 MPV 8.3 Sodium 141 Potassium 4.0 Chloride 101 Carbon Dioxide 30 Anion Gap 10 BUN 44.6 H Creatinine 8.1 H* Est GFR (CKD-EPI)AfAm 5.42 Est GFR (CKD-EPI)NonAf 4.68 POC Glucometer 137 Random Glucose 201 H Calcium 7.8 L Phosphorus 3.7 Magnesium 2.2 11/12/18 16:26 WBC RBC Hgb Hct MCV MCH MCHC RDW Plt Count MPV Sodium Potassium Chloride Carbon Dioxide Anion Gap BUN Creatinine Est GFR (CKD-EPI)AfAm Est GFR (CKD-EPI)NonAf POC Glucometer 269 Random Glucose Calcium Phosphorus Magnesium Active Medications Generic Name Dose Route Start Last Admin Trade Name Freq PRN Reason Stop Dose Admin Aspirin 81 mg 11/08/18 10:00 11/12/18 10:45 Asa - PO 81 mg DAILY [facility] Administration Atorvastatin Calcium 80 mg 11/12/18 13:34 Lipitor - PO HS [facility] Carvedilol 6.25 mg 11/08/18 10:00 11/12/18 10:45 Coreg - PO 6.25 mg BID [facility] Administration Clopidogrel Bisulfate 75 mg 11/13/18 10:00 Plavix - PO DAILY [facility] Epoetin Twan 6,000 unit 11/13/18 08:00 Epogen - IVPUSH 11/13/18 08:01 ONCE ONE Heparin Sodium (Porcine) 5,000 unit 11/08/18 06:00 11/12/18 06:08 Heparin - SQ 5,000 unit TID [facility] Administration Acyclovir 350 mg/ Dextrose 107 mls @ 107 mls/hr 11/10/18 20:00 11/11/18 21:19 IVPB 107 mls/hr Q24H [facility] Administration Sodium Chloride 250 mls @ 3,000 mls/hr 11/09/18 11:58 Normal Saline - IV 11/10/18 11:58 PRN PRN Hypotension during Dialysis Sodium Chloride 250 mls @ 3,000 mls/hr 11/12/18 17:20 Normal Saline - IV 11/13/18 17:21 PRN PRN Hypotension during Dialysis Insulin Aspart 1 vial 11/08/18 07:00 11/12/18 11:42 Novolog Vial Sliding Scale - SQ Not Given ACHS [facility] Protocol Losartan Potassium 25 mg 11/08/18 10:00 11/12/18 10:45 Cozaar - PO 25 mg DAILY [facility] Administration Metoprolol Tartrate 5 mg 11/08/18 16:49 Lopressor Injection - IVPUSH Q4H PRN SYSTOLIC BP >140 Nifedipine 90 mg 11/08/18 10:00 11/12/18 10:46 Procardia Xl - PO 90 mg DAILY [facility] Administration Polymyxin/Trimethoprim Sulfate 1 drop 11/08/18 00:45 11/12/18 10:45 Polytrim Opthalmic Solution - OS 1 drop DAILY [facility] Administration ASSESSMENT/PLAN: Ms. Murphy is a 68yo female with HTN, DM type 2, HLD, CVA, ESRD on dialysis ( , , ) who presents with weakness, vesicular rash on left forehead, and HTN urgency. #CVA Pt was alert and oriented this morning. CT showed right periventricular chronic lacunar infarct and MRI showed acute lacunar infarcts right degroot radiata and left frontal lobe. Carotid doppler showed right common carotid bifurcation 50-69 % stenosis. 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 Vesicular rash in V1 distribution. -continue acyclovir -continue Polytrim -ophtho Dr. Medina consulted because Dr. Locke is not available -will d/c contact precautions when vesicles crust over -consider rehab center on d/c #ESRD on dialysis BUN ranges 20s-40s, today 44.6 -continue dialysis #DM type 2 BG 200s average -continue SSI -BGM #HTN 110s/50s, stable -continue losartan -continue nifedipine -continue carvedilol -Lopressor push PRN #HLD -lipid profile ordered -atorvastatin increased to 80mg following CVA FEN -no standing fluids -monitor BUN, electrolytes -Na restricted diet DVT Ppe Heparin Visit type - Emergency Visit Emergency Visit: Yes ED Registration Date: 11/07/18 Care time: The patient presented to the Emergency Department on the above date and was hospitalized for further evaluation of their emergent condition. - New Patient This patient is new to me today: Yes Date on this admission: 11/12/18 - Critical Care Critical Care patient: No - Discharge Referral Referred to [facility] Med P.C.: No ATTENDING PHYSICIAN STATEMENT I saw and evaluated the patient. I reviewed the resident's note and discussed the case with the resident. I agree with the resident's findings and plan as documented. SUBJECTIVE: OBJECTIVE: ASSESSMENT AND PLAN:
[2018-11-12] MEDS ORDERED: METOPROLOL TARTRATE 5 MG/5 ML VIAL IVPUSH PRN (18:55)
[2018-11-12] MEDS ORDERED: SODIUM CHLORIDE 250 ML IV PRN (18:55)
[2018-11-12] MEDS: ACYCLOVIR INJECTION 350 MG in DEXTROSE 5%-WATER - 100 ML IVPB SCH (21:46)
[2018-11-13] MEDS: NYSTATIN 500,000 UNITS/5 ML SUSPENSION PO SCH ×3 (05:36→18:14)
[2018-11-13] MEDS: HEPARIN NA (PORCINE) 5,000 UNITS/ML 1ML VIAL SQ SCH ×4 (05:37→21:03)
[2018-11-13 06:32] LABS: CHOLESTEROL 139 mg/dL (50-200); HDL CHOLESTEROL 39 mg/dL (40-60); TRIGLYCERIDES 136 mg/dL (0-150)
[2018-11-13] MEDS: INSULIN SLIDING SCALE (NOVOLOG) 1 VIAL SQ SCH ×5 (06:38→21:03)
--- NOTE | 2018-11-13 08:53 | PN ---
Physical Exam: SUBJECTIVE: Patient seen and examined. Reports feeling "good" today. Denies any eye pain or vision changes. Tele showed occasional PVCs. OBJECTIVE: Vital Signs Period Temp Pulse Resp BP Sys/Travis Pulse Ox Last 24 Hr 97.5 F-98.6 F 78-83 18-20 103-117/53-87 100-100 GENERAL: The patient is awake and alert HEAD: Normal with no signs of trauma. EYES: PERRL, extraocular movements intact, sclera anicteric, left conjunctiva injected with eyelid swelling, discharge with some crusting, decreased vision, bilateral purulent discharge ENT: Ears normal, nares patent, dry mucous membranes NECK: Trachea midline, full range of motion, supple. LUNGS: Breath sounds equal, clear to auscultation bilaterally, no wheezes, no crackles, no accessory muscle use. HEART: Regular rate and rhythm, 3/6 systolic murmur ABDOMEN: Soft, nontender, nondistended, normoactive bowel sounds EXTREMITIES: 2+ pulses, warm, well-perfused, no edema. NEUROLOGICAL: Cranial nerves II through XII grossly intact. Normal speech, gait not observed. PSYCH: Normal mood, normal affect. SKIN: Warm, dry, normal turgor, herpetic lesions on left upper eyelid and just above the brow with no crossing of midline, with erythema and mild crusting Laboratory Results - last 24 hr 11/12/18 11/12/18 11/12/18 11:39 16:26 21:00 POC Glucometer 137 269 211 Triglycerides Cholesterol Total LDL Cholesterol HDL Cholesterol 11/13/18 11/13/18 05:20 05:36 POC Glucometer 201 Triglycerides 136 Cholesterol 139 Total LDL Cholesterol 77 HDL Cholesterol 39 L Active Medications Generic Name Dose Route Start Last Admin Trade Name Freq PRN Reason Stop Dose Admin Aspirin 81 mg 11/13/18 10:00 Asa - PO DAILY [facility] Atorvastatin Calcium 80 mg 11/12/18 13:34 11/12/18 21:01 Lipitor - PO 80 mg HS [facility] Administration Carvedilol 6.25 mg 11/12/18 22:00 11/12/18 21:01 Coreg - PO 6.25 mg BID [facility] Administration Clopidogrel Bisulfate 75 mg 11/13/18 10:00 Plavix - PO DAILY [facility] Epoetin Twan 6,000 unit 11/13/18 08:00 Epogen - IVPUSH 11/13/18 08:01 ONCE ONE Heparin Sodium (Porcine) 5,000 unit 11/12/18 22:00 11/13/18 05:37 Heparin - SQ 5,000 unit TID [facility] Administration Sodium Chloride 250 mls @ 3,000 mls/hr 11/12/18 17:20 Normal Saline - IV 11/13/18 17:21 PRN PRN Hypotension during Dialysis Acyclovir 350 mg/ Dextrose 107 mls @ 107 mls/hr 11/12/18 20:00 11/12/18 21:46 IVPB 107 mls/hr Q24H [facility] Administration Insulin Aspart 1 vial 11/12/18 22:00 11/13/18 06:38 Novolog Vial Sliding Scale - SQ 4 units ACHS [facility] Administration Protocol Losartan Potassium 25 mg 11/13/18 10:00 Cozaar - PO DAILY [facility] Metoprolol Tartrate 5 mg 11/12/18 18:55 Lopressor Injection - IVPUSH Q4H PRN SYSTOLIC BP >140 Nifedipine 90 mg 11/13/18 10:00 Procardia Xl - PO DAILY [facility] Nystatin 500,000 units 11/13/18 06:00 11/13/18 05:36 Nystatin Oral Suspension - PO 500,000 units Q6HPO [facility] Administration Polymyxin/Trimethoprim Sulfate 1 drop 11/13/18 10:00 Polytrim Opthalmic Solution - OS DAILY [facility] ASSESSMENT/PLAN: Ms. Murphy is a 68yo female with HTN, DM type 2, HLD, CVA, ESRD on dialysis (T , , ) who presents with weakness, vesicular rash on left eyelid and HTN urgency. #AMS Pt had rapid response today because she was difficult to wake. BG was 129. 103/ 58, 72p, 100%. Pt became responsive to sternal rub. Her BUN increased from yesterday 44.6-->74.8 just prior to dialysis. She was fully responsive during dialysis and afterward as well as agitated and wanting to go home. She began having right arm tremor intermittently late this afternoon. [employer] strength 3/5 right side, 4/5 left side unchanged from early afternoon. Spoke with Dr. Johnson about tremor, may be from agitation, will continue to monitor. -ammonia normal 24.5 -ABG pH 7.38 -Neuro reported unlikely herpes encephalitis because pt would be chronically altered. MRI showed acute lacunar infarcts right degroot radiata and left frontal lobe per radiology report. -CT showed right periventricular chronic lacunar infarct -Carotid doppler showed right common carotid bifurcation 50-69% stenosis. Vascular consult with Dr. Norton ordered. 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 Vesicular rash on upper lid and above brow not crossing midline. -continue acyclovir -continue Polytrim- now apply to both eyes -ophtho Dr. Medina consult ordered -will d/c contact precautions when vesicles crust over #ESRD on dialysis BUN ranges 20s-40s, today 74.8 prior to dialysis. -continue dialysis -nephro Dr. Campoverde following #DM type 2 BG 200s average -continue SSI -BGM #HTN 110s/50s, stable -continue to monitor BP -continue losartan -continue nifedipine -continue carvedilol -Lopressor push PRN #HLD -lipid profile HDL 39, LDL 77, total 139, triglycerides 136 -atorvastatin decreased back to home dose 40mg after speaking with neuro Dr. Johnson because LDL is 77 FEN -no standing fluids -monitor BUN, electrolytes -Na restricted diet DVT Ppe Heparin Visit type - Emergency Visit Emergency Visit: Yes ED Registration Date: 11/07/18 Care time: The patient presented to the Emergency Department on the above date and was hospitalized for further evaluation of their emergent condition. - New Patient This patient is new to me today: No - Critical Care Critical Care patient: No ATTENDING PHYSICIAN STATEMENT I saw and evaluated the patient. I reviewed the resident's note and discussed the case with the resident. I agree with the resident's findings and plan as documented. SUBJECTIVE: OBJECTIVE: ASSESSMENT AND PLAN:
--- NOTE | 2018-11-13 09:24 | PN ---
Progress Note (short form) - Note Progress Note: Neurology CHIEF COMPLAINT: weakness HISTORY OF PRESENT ILLNESS: 68 y/o F, pmh of htn, dm type 2, hld, cva, esrd on dialysis via left arm fistula presents to the ED c/o of eye infection and weakness of one day duration associated with nausea, nbnb vomiting and nonbloody diarrhea. Pt reports that she was in the hospital yesterday for a herpes zoster eye infection but was sent to the ophthalmologists office, who prescribed her valacyclovir and polymixin eye drops. Her symptoms began few hours after taking her antiviral and has persisted since. She reports she does dialysis // Mon and her last dialysis was yesterday afternoon. Currently, she no longer has n/v/d but still c/o of weakness and eye discharge and pain. In the ED, pt was hypertensive at 218/103 which was controlled after administration of losartan and nifedipine. Pt is a poor historian and has multiple admissions for AMS and confusion. In the past dr. Correia has suggested hypertensive encephalopathy which could be the cause of pt's worsening cognition. Denies f/c/n/v/d/ sob, chest pain, facial pain or numbness, paresthesia, abdominal pain. Ct head was completed and did not show any acute changes. Patient seen monday morning with resident at bedside and is more awake and alert, follows simple commands as she is able to squeeze my hand Discussed with son who was outside room and he reported that she was completely lethargic last night so it seems her mental status is improving. Certainly, only blood pressure can lead to status changes as well as underlying infection and she does seem fatigued Do recommend continuing optimization of infection. Mental status waxes and wanes. Can be alert at times but other times somnolent, not consistent with herpes encephalitis in which case patient would be persistently lethargic, not communicative. Is on Acylclovir, advised checking with ID if other cyclovir medications are stronger. Today, more awake and alert. Can tell me she's at [facility] as well as month is October and year is 2019. Mental status seems considerably better to me. MRI brain completed, noted R degroot radiata and L fronal infarcts, no comment as to acute vs subacute vs chronic. Remains on ASA along with statin. carotid Dopplers completed and reviewed, moderate plaques 50- 69% stenosis of the right common carotid. Consider vascular evaluation, most likely medical management but we'll defer to vascular specialist Active Medications Aspirin (Asa -) 81 mg PO DAILY [facility] Atorvastatin Calcium (Lipitor -) 80 mg PO HS [facility] Last Admin: 11/12/18 21:01 Dose: 80 mg Carvedilol (Coreg -) 6.25 mg PO BID [facility] Last Admin: 11/12/18 21:01 Dose: 6.25 mg Clopidogrel Bisulfate (Plavix -) 75 mg PO DAILY [facility] Epoetin Twan (Epogen -) 6,000 unit IVPUSH ONCE ONE Stop: 11/13/18 08:01 Heparin Sodium (Porcine) (Heparin -) 5,000 unit SQ TID [facility] Last Admin: 11/13/18 05:37 Dose: 5,000 unit Sodium Chloride (Normal Saline -) 250 mls @ 3,000 mls/hr IV PRN PRN PRN Reason: Hypotension during Dialysis Stop: 11/13/18 17:21 Acyclovir 350 mg/ Dextrose 107 mls @ 107 mls/hr IVPB Q24H [facility] Last Admin: 11/12/18 21:46 Dose: 107 mls/hr Insulin Aspart (Novolog Vial Sliding Scale -) 1 vial SQ ACHS [facility]; Protocol Last Admin: 11/13/18 06:38 Dose: 4 units Losartan Potassium (Cozaar -) 25 mg PO DAILY [facility] Metoprolol Tartrate (Lopressor Injection -) 5 mg IVPUSH Q4H PRN PRN Reason: SYSTOLIC BP >140 Nifedipine (Procardia Xl -) 90 mg PO DAILY [facility] Nystatin (Nystatin Oral Suspension -) 500,000 units PO Q6HPO [facility] Last Admin: 11/13/18 05:36 Dose: 500,000 units Polymyxin/Trimethoprim Sulfate (Polytrim Opthalmic Solution -) 1 drop OS DAILY [facility] PHYSICAL EXAMINATION Vital Signs Period Temp Pulse Resp BP Sys/Travis Pulse Ox Last 24 Hr 97.5 F-98.6 F 78-83 18-20 103-116/53-87 100 GENERAL: Awake, alert, and fully oriented, in mild distress and lethargic EYES: Left eye discharge- dry and crusted, redness, mild superficial swelling and difficult to keep open. Pupils equal, round and reactive to light, extraocular movements intact, EARS, NOSE, THROAT: Vesicular rash on the left forehead present. Oropharynx clear without exudates. Moist mucous membranes. NECK: Normal range of motion, supple without lymphadenopathy, JVD, or masses. LUNGS: Breath sounds equal, clear to auscultation bilaterally. No wheezes, and no crackles. No accessory muscle use. HEART: Regular rate and rhythm, normal S1 and S2 without murmur, rub or gallop. ABDOMEN: Soft, nontender, not distended, normoactive bowel sounds, no guarding, no rebound, no masses. No hepatomegaly or splenomegaly. MUSCULOSKELETAL: No CVA tenderness. UPPER EXTREMITIES: 2+ pulses, warm, well-perfused. No cyanosis. No peripheral edema. LOWER EXTREMITIES: 2+ pulses, warm, well-perfused. No peripheral edema. NEUROLOGICAL: AWake, alert, not participating in confrontation testing but moves extremities grossly, sensory intact PSYCHIATRIC: Cooperative. Good eye contact. Appropriate mood and affect. CBCD WBC 7.3 K/mm3 (4.0-10.0) 11/12/18 06:47 RBC 3.16 M/mm3 (3.60-5.2) L 11/12/18 06:47 Hgb 9.9 GM/dL (10.7-15.3) L 11/12/18 06:47 Hct 29.8 % (32.4-45.2) L 11/12/18 06:47 MCV 94.4 fl (80-96) 11/12/18 06:47 MCHC 33.1 g/dl (32.0-36.0) 11/12/18 06:47 RDW 13.5 % (11.6-15.6) 11/12/18 06:47 Plt Count 179 K/MM3 (134-434) 11/12/18 06:47 MPV 8.3 fl (7.5-11.1) 11/12/18 06:47 CMP Sodium 141 mmol/L (136-145) 11/12/18 06:47 Potassium 4.0 mmol/L (3.5-5.1) 11/12/18 06:47 Chloride 101 mmol/L (98-107) 11/12/18 06:47 Carbon Dioxide 30 mmol/L (21-32) 11/12/18 06:47 Anion Gap 10 MMOL/L (8-16) 11/12/18 06:47 BUN 44.6 mg/dL (7-18) H 11/12/18 06:47 Creatinine 8.1 mg/dL (0.55-1.3) H* 11/12/18 06:47 Random Glucose 201 mg/dL (74-106) H 11/12/18 06:47 Calcium 7.8 mg/dL (8.5-10.1) L 11/12/18 06:47 Total Bilirubin 0.4 mg/dL (0.2-1) 11/10/18 07:15 AST 13 U/L (15-37) L 11/10/18 07:15 ALT 11 U/L (13-61) L 11/10/18 07:15 Alkaline Phosphatase 60 U/L (45-117) 11/10/18 07:15 Total Protein 7.4 g/dl (6.4-8.2) 11/10/18 07:15 Albumin 3.1 g/dl (3.4-5.0) L 11/10/18 07:15 CARDIAC ENZYMES Creatine Kinase 58 U/L (26-192) 11/07/18 19:33 Troponin I < 0.02 ng/ml (0.00-0.05) 11/07/18 19:33 ASSESSMENT/PLAN: 68 y/o F, pmh of htn, dm type 2, hld, cva, esrd on dialysis via left arm fistula presents to the ED c/o of eye infection and weakness of one day duration associated with nausea, nbnb vomiting and nonbloody diarrhea. Pt reports that she was in the hospital yesterday for a herpes zoster eye infection but was sent to the ophthalmologists office, who prescribed her valacyclovir and polymixin eye drops. Her symptoms began few hours after taking her antiviral and has persisted since. She reports she does dialysis Tu// Mon and her last dialysis was yesterday afternoon. Currently, she no longer has n/v/d but still c/o of weakness and eye discharge and pain. In the ED, pt was hypertensive at 218/103 which was controlled after administration of losartan and nifedipine. Pt is a poor historian and has multiple admissions for AMS and confusion. In the past dr. Correia has suggested hypertensive encephalopathy which could be the cause of pt's worsening cognition. Denies f/c/n/v/d/ sob, chest pain, facial pain or numbness, paresthesia, abdominal pain. Ct head was completed and did not show any acute changes. Patient seen crystal morning with resident at bedside and is more awake and alert, follows simple commands as she is able to squeeze my hand Discussed with son who was outside room and he reported that she was completely lethargic last night so it seems her mental status is improving. Certainly, only blood pressure can lead to status changes as well as underlying infection and she does seem fatigued. Brain MRI completed , report at this time. Discussed with hospitalized, mental status waxes and wanes. Can be alert at times but other times somnolent, not consistent with herpes encephalitis in which case patient would be persistently lethargic, not communicative. Is on Acylclovir, advised checking with ID if other cyclovir medications are stronger. Today, more awake and alert. Can tell me she's at [facility] as well as month is October and year is 2018. Mental status seems considerably better to me. Do recommend continuing optimization of infection. Patient on acyclovir, ID follow-up. Continue hemodialysis, optimize renal status. monitor glucose, maintain euglycemic range.. MRI brain completed, noted R degroot radiata and L fronal infarcts, no comment as to acute vs subacute vs chronic. Remains on ASA along with statin. carotid Dopplers completed and reviewed, moderate plaques 50-69% stenosis of the right common carotid. Consider vascular evaluation, most likely medical management but we'll defer to vascular specialist, echo pending for further CVA work up.
[2018-11-13] MEDS ORDERED: NIFEdipine E.R. 90 MG TABLET (FP) PO SCH (10:00)
[2018-11-13] MEDS ORDERED: LOSARTAN POTASSIUM 25 MG TABLET PO SCH (10:00)
[2018-11-13] MEDS ORDERED: POLYMYXIN B SULFATE/TMP 10 ML OPHTHALMIC SOLUTION OS SCH (10:00)
--- NOTE | 2018-11-13 10:10 | RAPID ---
Physical Examination Vital Signs: Vital Signs Temperature 97.5 F L 11/13/18 05:46 Pulse Rate 78 11/13/18 05:46 Respiratory Rate 20 11/13/18 05:46 Blood Pressure 103/53 L 11/13/18 05:46 O2 Sat by Pulse Oximetry (%) 100 11/12/18 21:00 Labs: CBC, BMP 11/12/18 06:47 11/12/18 06:47 Rapid Response - Rapid Response Assessment: 68yo female with HTN, DM type 2, HLD, CVA, ESRD on dialysis (T, Th, Sa) was found difficult to arouse. Pt verbally responded to sternal rub. Continued to be somnolent immediately following but was stable. vital signs: 103/58 72P 100% 97.3T labs: BG 129 ABG Results ABG pH 7.38 (7.35-7.45) 11/13/18 10:10 ABG pCO2 at Pt Temp 45.3 mmHg (35-45) H 11/13/18 10:10 ABG pO2 at Pt Temp 108 mmHg (80-100) H 11/13/18 10:10 ABG HCO3 26.1 mmol/L (22-27) 11/13/18 10:10 ABG O2 Sat (Measured) 98.1 % (95-98) H 11/13/18 10:10 ABG O2 Content 12.7 % vol 11/13/18 10:10 ABG Base Excess 1.3 meq/l (-2-2) 11/13/18 10:10 Continue to monitor pt for mental status changes and lethargy.
--- NOTE | 2018-11-13 10:21 | ECHO ---
Name: KOSTAS HOLT Exam:Adult Echocardiogram Study Date: 11/13/2018 08:09 AM Age: 68 yrs Reason For Study: CVA Height: 64 in Weight: 160 lb BSA: 1.8 m2 MMode/2D Measurements & Calculations IVSd: 1.6 cm Ao root diam: 2.2 cm LVIDd: 2.5 cm LA dimension: 3.4 cm LVIDs: 2.0 cm LVPWd: 1.3 cm EDV(Teich): 22.2 ml LVOT diam: 2.0 cm ESV(Teich): 12.6 ml LAV (MOD-bp): 87.5 ml Doppler Measurements & Calculations MV E max abdulkadir: 147.0 cm/sec Ao V2 max: 235.6 cm/sec MV A max abdulkadir: 103.5 cm/sec Ao max P.2 mmHg MV E/A: 1.4 Ao V2 mean: 174.3 cm/sec MV dec time: 0.20 sec Ao mean P.5 mmHg Ao V2 VTI: 54.3 cm RANDY(I,D): 1.3 cm2 RANDY(V,D): 1.2 cm2 LV V1 max P.4 mmHg MR max abdulkadir: 444.7 cm/sec LV V1 mean P.0 mmHg MR max P.7 mmHg LV V1 max: 92.2 cm/sec LV V1 mean: 66.3 cm/sec LV V1 VTI: 22.9 cm SV(LVOT): 69.1 ml TR max abdulkadir: 225.7 cm/sec TR max P.7 mmHg PA V2 max: 124.9 cm/sec Med Peak E' Abdulkadir: 6.3 cm/sec PA max P.2 mmHg Med E/e': 23.3 Lat Peak E' Abdulkadir: 7.4 cm/sec Lat E/e': 19.9 Procedure A complete two-dimensional transthoracic echocardiogram was performed (2D, M-mode, Doppler and color flow Doppler). Left Ventricle The left ventricle is normal in size. There is mild concentric left ventricular hypertrophy. Left hany tricular systolic function is normal. Ejection Fraction = 65%. E/A reversal consistent with but not diagnostic of poor LV compliance. The left ventricular wall motion is normal. Right Ventricle The right ventricle is normal in size and function. Atria Normal left and right atrial size and function. Mitral Valve There is mild mitral valve thickening. There is mild mitral regurgitation. Tricuspid Valve There is trace tricuspid regurgitation. Right ventricular systolic pressure is normal. Aortic Valve There is moderate aortic valve thickening. Mild valvular aortic stenosis. Pulmonic Valve The pulmonic valve is not well visualized. Great Vessels The aortic root is normal size. Pericardium/Pleura There is no pericardial effusion. There is no pleural effusion. Interpretation Summary Compared to the prior echo report on 11/01/17, there is no significant change. There is mild concentri c left ventricular hypertrophy. Left ventricular systolic function is normal. Ejection Fraction = 65%. The right ventricle is normal in size and function. Normal left and right atrial size and function. There is mild mitral valve thickening. There is mild mitral regurgitation. There is trace tricuspid regurgitation. Right ventricular systolic pressure is normal. There is moderate aortic valve thickening. Mild valvular aortic stenosis. MD Deep Danielle 11/13/2018 10:20 AM
[2018-11-13 10:39] LABS: ARTERIAL BLD GAS O2 SATURATION 98.1 % (95-98); ARTERIAL BLOOD GAS BASE EXCESS 1.3 meq/l (-2-2); ARTERIAL BLOOD GAS PCO2 45.3 mmHg (35-45); ARTERIAL BLOOD GAS PO2 108 mmHg (80-100); ARTERIAL BLOOD GAS pH 7.38 (7.35-7.45)
[2018-11-13 10:48] LABS: ALLENS TEST POSITIVE
[2018-11-13] MEDS: CARVEDILOL 6.25 MG TABLET (FP) PO SCH ×2 (11:00→21:02)
--- NOTE | 2018-11-13 11:20 | PN ---
Progress Note, Physician History of Present Illness: AWAKE, ORIENTED SLOW TO RESPOND TO QUESTIONS RAPID RESPONSE CALLED THIS AM - PT POORLY RESPONSIVE NO COMPLAINTS DENIES L PERIORBITAL PAIN NO EYE PAIN OR CHANGE IN VISUAL ACUITY AFEBRILE - Current Medication List Current Medications: Active Medications Aspirin (Asa -) 81 mg PO DAILY [facility] Atorvastatin Calcium (Lipitor -) 80 mg PO HS [facility] Last Admin: 11/12/18 21:01 Dose: 80 mg Carvedilol (Coreg -) 6.25 mg PO BID [facility] Last Admin: 11/12/18 21:01 Dose: 6.25 mg Clopidogrel Bisulfate (Plavix -) 75 mg PO DAILY [facility] Epoetin Twan (Epogen -) 6,000 unit IVPUSH ONCE ONE Stop: 11/13/18 08:01 Heparin Sodium (Porcine) (Heparin -) 5,000 unit SQ TID [facility] Last Admin: 11/13/18 05:37 Dose: 5,000 unit Sodium Chloride (Normal Saline -) 250 mls @ 3,000 mls/hr IV PRN PRN PRN Reason: Hypotension during Dialysis Stop: 11/13/18 17:21 Acyclovir 350 mg/ Dextrose 107 mls @ 107 mls/hr IVPB Q24H [facility] Last Admin: 11/12/18 21:46 Dose: 107 mls/hr Insulin Aspart (Novolog Vial Sliding Scale -) 1 vial SQ ACHS [facility]; Protocol Last Admin: 11/13/18 06:38 Dose: 4 units Losartan Potassium (Cozaar -) 25 mg PO DAILY [facility] Metoprolol Tartrate (Lopressor Injection -) 5 mg IVPUSH Q4H PRN PRN Reason: SYSTOLIC BP >140 Nifedipine (Procardia Xl -) 90 mg PO DAILY [facility] Nystatin (Nystatin Oral Suspension -) 500,000 units PO Q6HPO [facility] Last Admin: 11/13/18 05:36 Dose: 500,000 units Polymyxin/Trimethoprim Sulfate (Polytrim Opthalmic Solution -) 1 drop OS DAILY [facility] - Objective Vital Signs: Vital Signs Temperature 97.5 F L 11/13/18 05:46 Pulse Rate 78 11/13/18 05:46 Respiratory Rate 20 11/13/18 05:46 Blood Pressure 103/53 L 11/13/18 05:46 O2 Sat by Pulse Oximetry (%) 100 11/12/18 21:00 Constitutional: Yes: No Distress Eyes: Yes: Other (MILD L CONJUNCTIVAL INJECTION). No: Conjunctiva Clear HENT: Yes: Other (ULCERATED LESIONS L PERIORBITAL AREA) Cardiovascular: Yes: Regular Rate and Rhythm, S1, S2 Respiratory: Yes: CTA Bilaterally Gastrointestinal: Yes: Normal Bowel Sounds, Soft. No: Tenderness Labs: CBC, BMP 11/12/18 06:47 11/12/18 06:47 INR, PTT INR 0.98 (0.83-1.09) 11/08/18 20:00 Assessment/Plan VZV L V1 DISTRIBUTION IMPROVED ? TOXIC / METABOLIC ENCEPHALOPATHY RESOLVED ESRD CONT ACV ADJUSTED FOR ESRD DAY #6 OPHTHO F/U PT FOR AMBULATION
[2018-11-13] MEDS ORDERED: SODIUM CHLORIDE 250 ML IV PRN (12:23)
[2018-11-13] MEDS ORDERED: EPOETIN ALFA 3,000 UNIT/1 ML ML IVPUSH ONE (12:30)
[2018-11-13 12:48] LABS: HEMATOCRIT 27.9 % (32.4-45.2); HEMOGLOBIN 9.1 GM/dL (10.7-15.3); MCH 30.9 pg (25.7-33.7); MCHC 32.5 g/dl (32.0-36.0); MEAN CELL VOLUME 95.3 fl (80-96); MEAN PLT VOLUME 8.6 fl (7.5-11.1); PLATELET COUNT 190 K/MM3 (134-434); RBC 2.93 M/mm3 (3.60-5.2); RDW 13.4 % (11.6-15.6); WHITE BLOOD COUNT 7.2 K/mm3 (4.0-10.0)
[2018-11-13 13:25] LABS: BLOOD UREA NITROGEN 74.8 mg/dL (7-18); CALCIUM 7.8 mg/dL (8.5-10.1); PHOSPHOROUS 4.9 mg/dL (2.5-4.9); POTASSIUM 4.6 mmol/L (3.5-5.1)
[2018-11-13 13:36] LABS: CREATININE 10.2 mg/dL (0.55-1.3)
--- NOTE | 2018-11-13 15:06 | PN ---
Progress Note (short form) - Note Progress Note: Renal follow up for ESRD Pt seen and examined at the bedside Vital Signs Temperature 98.6 F 11/12/18 09:00 Pulse Rate 80 11/12/18 09:00 Respiratory Rate 19 11/12/18 09:00 Blood Pressure 117/57 L 11/12/18 09:00 O2 Sat by Pulse Oximetry (%) 100 11/12/18 09:00 Intake & Output 11/09/18 11/10/18 11/11/18 11/12/18 23:59 23:59 23:59 23:59 Intake Total 1802 800 300 495 Output Total 2400 Balance 1802 -1600 300 495 Weight 72.575 kg NAD neck supple, no JVD RRR, no M/R CTA (anterior examination) soft NT/ND, no organomegaly no extremity edema or cyanosis left arm AVF + thrill CBC, BMP 11/12/18 06:47 11/12/18 06:47 Current Medications Aspirin (Asa -) 81 mg PO DAILY [facility] Last Admin: 11/12/18 10:45 Dose: 81 mg Atorvastatin Calcium (Lipitor -) 80 mg PO [facility] Carvedilol (Coreg -) 6.25 mg PO BID [facility] Last Admin: 11/12/18 10:45 Dose: 6.25 mg Clopidogrel Bisulfate (Plavix -) 75 mg PO DAILY [facility] Heparin Sodium (Porcine) (Heparin -) 5,000 unit SQ TID [facility] Last Admin: 11/12/18 06:08 Dose: 5,000 unit Acyclovir 350 mg/ Dextrose 107 mls @ 107 mls/hr IVPB Q24H [facility] Last Admin: 11/11/18 21:19 Dose: 107 mls/hr Sodium Chloride (Normal Saline -) 250 mls @ 3,000 mls/hr IV PRN PRN PRN Reason: Hypotension during Dialysis Stop: 11/10/18 11:58 Insulin Aspart (Novolog Vial Sliding Scale -) 1 vial SQ ACHS [facility]; Protocol Last Admin: 11/12/18 11:42 Dose: Not Given Losartan Potassium (Cozaar -) 25 mg PO DAILY [facility] Last Admin: 11/12/18 10:45 Dose: 25 mg Metoprolol Tartrate (Lopressor Injection -) 5 mg IVPUSH Q4H PRN PRN Reason: SYSTOLIC BP >140 Nifedipine (Procardia Xl -) 90 mg PO DAILY [facility] Last Admin: 11/12/18 10:46 Dose: 90 mg Polymyxin/Trimethoprim Sulfate (Polytrim Opthalmic Solution -) 1 drop OS DAILY [facility] Last Admin: 11/12/18 10:45 Dose: 1 drop 68 year old woman with history of ESRD on HD (TTS), hypertension, CAD, CVA, DM who presented from home with generalized weakness/lethargy, 4 day history of diarrhea/poor oral intake and found to have hyperkalemia and AMS. 1. ESRD on HD 2. Hyperkalemia 3. Altered mental status with MRI evidence of cerebral infarction 4. Hypertension 5. Diarrhea 6. Herpes zoster Tolerating dialysis well today. BP is marginal so UF goal reduced to 2L Continued neurology follow up and work up for AMS/CVA Renal diet Continue current antihypertensives Continue IV acyclovir as per ID Next planned dialysis is Nicolas Campoverde DO
--- NOTE | 2018-11-13 15:54 | PN ---
Progress Note (short form) - Note Progress Note: VAscular Surgery Carotid doppler reviewed. All velocities within normal limits No need for any surgery Medical management. Se Norton DO
[2018-11-13] MEDS ORDERED: PT OWN MED DRAWER 7, Y5N ONE ×3 (16:05→20:30)
[2018-11-13] MEDS: CLOPIDOGREL BISULFATE 75 MG TABLET (FP) PO SCH (17:36)
[2018-11-13] MEDS: ASPIRIN 81 MG CHEWABLE TABLETS PO SCH (17:36)
--- NOTE | 2018-11-13 19:32 | PN ---
Teaching Attending Note Name of Resident: Trina Mata ATTENDING PHYSICIAN STATEMENT I saw and evaluated the patient. I reviewed the resident's note and discussed the case with the resident. I agree with the resident's findings and plan as documented. SUBJECTIVE: Patient is arousable, rapid response was called since patient had difficulty opening her eyes and looked very tired, but knew where she was and answering the questions. OBJECTIVE: Vital Signs Temperature 98.6 F 11/13/18 18:00 Pulse Rate 83 11/13/18 18:00 Respiratory Rate 18 11/13/18 18:00 Blood Pressure 130/56 L 11/13/18 18:00 O2 Sat by Pulse Oximetry (%) 100 11/13/18 09:00 GENERAL: The patient is awake, alert, and fully oriented, in no acute distress. HEAD: Normal with no signs of trauma. EYES: PERRL, extraocular movements intact, sclera anicteric, conjunctiva clear. ENT: Ears normal, oropharynx clear without exudates, moist mucous membranes. NECK: Trachea midline, full range of motion, supple. LUNGS: decreased Breath sounds bl, no wheezes, no crackles, no accessory muscle use. HEART: NIRAV 2/6 , LSB 3/6 murmur , S1S2 positive , no rub or gallop. ABDOMEN: Soft, nontender, nondistended, normoactive bowel sounds, no guarding, no rebound, no hepatosplenomegaly, no masses. EXTREMITIES: 2+ pulses, warm, positive for AVF left side NEUROLOGICAL: Cranial nerves II through XII grossly intact. Normal speech, gait not observed. PSYCH: Normal mood, normal affect. SKIN: Warm, dry, normal turgor, no rashes or lesions noted CBCD WBC 7.2 K/mm3 (4.0-10.0) 11/13/18 11:00 RBC 2.93 M/mm3 (3.60-5.2) L 11/13/18 11:00 Hgb 9.1 GM/dL (10.7-15.3) L 11/13/18 11:00 Hct 27.9 % (32.4-45.2) L 11/13/18 11:00 MCV 95.3 fl (80-96) 11/13/18 11:00 MCHC 32.5 g/dl (32.0-36.0) 11/13/18 11:00 RDW 13.4 % (11.6-15.6) 11/13/18 11:00 Plt Count 190 K/MM3 (134-434) 11/13/18 11:00 MPV 8.6 fl (7.5-11.1) 11/13/18 11:00 CMP Sodium 139 mmol/L (136-145) 11/13/18 11:00 Potassium 4.6 mmol/L (3.5-5.1) 11/13/18 11:00 Chloride 100 mmol/L (98-107) 11/13/18 11:00 Carbon Dioxide 26 mmol/L (21-32) 11/13/18 11:00 Anion Gap 14 MMOL/L (8-16) 11/13/18 11:00 BUN 74.8 mg/dL (7-18) H 11/13/18 11:00 Creatinine 10.2 mg/dL (0.55-1.3) H* 11/13/18 11:00 Random Glucose 154 mg/dL (74-106) H 11/13/18 11:00 Calcium 7.8 mg/dL (8.5-10.1) L 11/13/18 11:00 Total Bilirubin 0.4 mg/dL (0.2-1) 11/10/18 07:15 AST 13 U/L (15-37) L 11/10/18 07:15 ALT 11 U/L (13-61) L 11/10/18 07:15 Alkaline Phosphatase 60 U/L (45-117) 11/10/18 07:15 Total Protein 7.4 g/dl (6.4-8.2) 11/10/18 07:15 Albumin 3.1 g/dl (3.4-5.0) L 11/10/18 07:15 CARDIAC ENZYMES Creatine Kinase 58 U/L (26-192) 11/07/18 19:33 Troponin I < 0.02 ng/ml (0.00-0.05) 11/07/18 19:33 Current Medications Generic Name Dose Route Start Last Admin Trade Name Freq PRN Reason Stop Dose Admin Aspirin 81 mg 11/13/18 10:00 11/13/18 17:36 Asa - PO 81 mg DAILY [facility] Administration Atorvastatin Calcium 40 mg 11/13/18 19:00 Lipitor - PO HS [facility] Carvedilol 6.25 mg 11/13/18 19:03 Coreg - PO BID [facility] Clopidogrel Bisulfate 75 mg 11/13/18 10:00 11/13/18 17:36 Plavix - PO 75 mg DAILY [facility] Administration Heparin Sodium (Porcine) 5,000 unit 11/12/18 22:00 11/13/18 15:50 Heparin - SQ Not Given TID [facility] Acyclovir 350 mg/ Dextrose 107 mls @ 107 mls/hr 11/12/18 20:00 11/12/18 21:46 IVPB 107 mls/hr Q24H [facility] Administration Insulin Aspart 1 vial 11/12/18 22:00 11/13/18 17:44 Novolog Vial Sliding Scale - SQ 4 units ACHS [facility] Administration Protocol Losartan Potassium 25 mg 11/13/18 19:05 Cozaar - PO DAILY [facility] Metoprolol Tartrate 5 mg 11/12/18 18:55 Lopressor Injection - IVPUSH Q4H PRN SYSTOLIC BP >140 Nifedipine 90 mg 11/13/18 19:05 Procardia Xl - PO DAILY [facility] Nystatin 500,000 units 11/13/18 06:00 11/13/18 18:14 Nystatin Oral Suspension - PO 500,000 units Q6HPO [facility] Administration Polymyxin/Trimethoprim Sulfate 1 drop 11/14/18 10:00 Polytrim Opthalmic Solution - OU DAILY [facility] Home Medications Medication Instructions Recorded Acetaminophen [Tylenol Extra 500 mg PO PRN PRN 11/07/18 Strength] Aspirin [ASA -] 81 mg PO DAILY 11/07/18 Atorvastatin Ca [Lipitor] 40 mg PO HS 11/07/18 Carvedilol [Coreg -] 6.25 mg PO BID 11/07/18 Donepezil HCl [Aricept -] 10 mg PO DAILY 11/07/18 Losartan Potassium [Cozaar -] 25 mg PO DAILY 11/07/18 Memantine HCl [Namenda -] 10 mg PO BID 11/07/18 Nifedipine [Procardia Xl] 90 mg PO DAILY 11/07/18 Valacyclovir HCl [Valtrex -] 500 mg PO BID 11/07/18 Linagliptin [Tradjenta] 5 mg PO DAILY 11/08/18 Pantoprazole Sodium [Protonix] 40 mg PO DAILY 11/08/18 Sodium Polystyrene Sulfonate 30 gm PO DAILY 11/08/18 [Kayexalate -] Microbiology 11/08/18 20:00 Blood - Arterial Blood Culture - Preliminary NO GROWTH OBTAINED AFTER 96 HOURS, INCUBATION TO CONTINUE FOR 1 DAYS. 11/08/18 20:00 Blood - Arterial Blood Culture - Preliminary NO GROWTH OBTAINED AFTER 96 HOURS, INCUBATION TO CONTINUE FOR 1 DAYS. ASSESSMENT AND PLAN: Patient is a 68yo F with PMHx T2DM, ESRD on HD (TTS), CVA, and recently diagnosed zoster opthalmicus which she was started on valtrex and vomited and developed diarrhea. # Acute lacunar infarct L frontal lobe and R degroot radiata- patient is lethargic with waxing and weaning ymptoms unable to do neuro exam, with chronic encephalomalsia , carotid doppler : moderate plaques on the right common carotid 50-69% , echo: with EJF 65% , On plavix/asa/lipitor 40mg , continue tele for cardiac monitoring # Acute metabolic encephalopathy- possible due to acute stroke with encephalomalsia , seen on MRI. mental status is on and off, cont neurochecks. no need for LP at this time. neuro on board. 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 ophthalmo consult requested, will follow the recomendations. lesions are dry and starting to crust. to be given post HD. optho and ID consulted. contact precautions. # HTN urgency- improved, monitor # s/p acute hyponatremia- resolved # Hyperkalemia- resolved # Mechanical fall- possible due to ativan dose. PT eval # ESRD on HD- TTS schedule. HD per nephro. # T2DM- hold oral agents. Iss and bgm DVT ppx- hep sq
[2018-11-13] MEDS: METOPROLOL TARTRATE 5 MG/5 ML VIAL IVPUSH SCH ×2 (20:22→20:23)
[2018-11-13] MEDS: SODIUM CHLORIDE 1,000 ML IV SCH (20:22)
[2018-11-13] MEDS: ATORVASTATIN CA 40 MG TABLET (FP) PO SCH (21:02)
[2018-11-13] MEDS: ACYCLOVIR INJECTION 350 MG in DEXTROSE 5%-WATER - 100 ML IVPB SCH (21:03)
[2018-11-14] MEDS: NYSTATIN 500,000 UNITS/5 ML SUSPENSION PO SCH ×4 (00:36→18:45)
[2018-11-14] MEDS ORDERED: ACETAMINOPHEN 325 MG TABLET (FP) PO ONE (01:53)
[2018-11-14] MEDS: HEPARIN NA (PORCINE) 5,000 UNITS/ML 1ML VIAL SQ SCH ×3 (05:52→21:35)
[2018-11-14] MEDS: INSULIN SLIDING SCALE (NOVOLOG) 1 VIAL SQ SCH ×4 (06:10→21:42)
[2018-11-14 08:00] LABS: BLOOD UREA NITROGEN 37.1 mg/dL (7-18); CALCIUM 8.1 mg/dL (8.5-10.1); CREATININE 5.2 mg/dL (0.55-1.3); POTASSIUM 3.7 mmol/L (3.5-5.1)
--- NOTE | 2018-11-14 09:22 | PN ---
Progress Note (short form) - Note Progress Note: Neurology CHIEF COMPLAINT: weakness HISTORY OF PRESENT ILLNESS: 68 y/o F, pmh of htn, dm type 2, hld, cva, esrd on dialysis via left arm fistula presents to the ED c/o of eye infection and weakness of one day duration associated with nausea, nbnb vomiting and nonbloody diarrhea. In the ED , pt was hypertensive at 218/103 which was controlled after administration of losartan and nifedipine. Pt is a poor historian and has multiple admissions for AMS and confusion. In the past dr. Correia has suggested hypertensive encephalopathy which could be the cause of pt's worsening cognition. apid response note from yesterday reviewed, discussed with resident over the phone. Mental status waxes and wanes. Can be alert at times but other times somnolent. Is on Acylclovir, his a.m. somnolent butquickly arousable and alert. Can tell me she's at [facility] as well as month is October and year is 2018. MRI brain with R degroot radiata and L fronal infarcts, no comment as to acute vs subacute vs chronic. Remains on ASA, plavix along with statin. carotid Dopplers completed and reviewed, moderate plaques 50-69% stenosis of the right common carotid. Active Medications Aspirin (Asa -) 81 mg PO DAILY [facility] Last Admin: 11/13/18 17:36 Dose: 81 mg Atorvastatin Calcium (Lipitor -) 40 mg PO HS [facility] Last Admin: 11/13/18 21:02 Dose: 40 mg Carvedilol (Coreg -) 6.25 mg PO BID [facility] Last Admin: 11/13/18 21:02 Dose: 6.25 mg Clopidogrel Bisulfate (Plavix -) 75 mg PO DAILY [facility] Last Admin: 11/13/18 17:36 Dose: 75 mg Heparin Sodium (Porcine) (Heparin -) 5,000 unit SQ TID [facility] Last Admin: 11/14/18 05:52 Dose: 5,000 unit Acyclovir 350 mg/ Dextrose 107 mls @ 107 mls/hr IVPB Q24H [facility] Last Admin: 11/13/18 21:03 Dose: 107 mls/hr Insulin Aspart (Novolog Vial Sliding Scale -) 1 vial SQ ACHS [facility]; Protocol Last Admin: 11/14/18 06:10 Dose: 6 units Losartan Potassium (Cozaar -) 25 mg PO DAILY [facility] Metoprolol Tartrate (Lopressor Injection -) 5 mg IVPUSH Q4H PRN PRN Reason: SYSTOLIC BP >140 Nifedipine (Procardia Xl -) 90 mg PO DAILY [facility] Nystatin (Nystatin Oral Suspension -) 500,000 units PO Q6HPO [facility] Last Admin: 11/14/18 05:52 Dose: 500,000 units Polymyxin/Trimethoprim Sulfate (Polytrim Opthalmic Solution -) 1 drop OU DAILY [facility] PHYSICAL EXAMINATION Vital Signs Period Temp Pulse Resp BP Sys/Travis Pulse Ox Last 24 Hr 97.3 F-100.7 F 72-99 17-20 91-141/54-65 95 GENERAL: Awake, alert EYES: Left eye discharge- dry and crusted, redness, mild superficial swelling and difficult to keep open. Pupils equal, round and reactive to light, extraocular movements intact, EARS, NOSE, THROAT: Vesicular rash on the left forehead present. Oropharynx clear without exudates. Moist mucous membranes. NECK: Normal range of motion, supple without lymphadenopathy, JVD, or masses. LUNGS: Breath sounds equal, clear to auscultation bilaterally. No wheezes, and no crackles. No accessory muscle use. HEART: Regular rate and rhythm, normal S1 and S2 without murmur, rub or gallop. ABDOMEN: Soft, nontender, not distended, normoactive bowel sounds, no guarding, no rebound, no masses. No hepatomegaly or splenomegaly. MUSCULOSKELETAL: No CVA tenderness. UPPER EXTREMITIES: 2+ pulses, warm, well-perfused. No cyanosis. No peripheral edema. LOWER EXTREMITIES: 2+ pulses, warm, well-perfused. No peripheral edema. NEUROLOGICAL: AWake, alert, not participating in confrontation testing but moves extremities grossly, sensory intact PSYCHIATRIC: Cooperative. Good eye contact. Appropriate mood and affect. CBCD WBC 7.2 K/mm3 (4.0-10.0) 11/13/18 11:00 RBC 2.93 M/mm3 (3.60-5.2) L 11/13/18 11:00 Hgb 9.1 GM/dL (10.7-15.3) L 11/13/18 11:00 Hct 27.9 % (32.4-45.2) L 11/13/18 11:00 MCV 95.3 fl (80-96) 11/13/18 11:00 MCHC 32.5 g/dl (32.0-36.0) 11/13/18 11:00 RDW 13.4 % (11.6-15.6) 11/13/18 11:00 Plt Count 190 K/MM3 (134-434) 11/13/18 11:00 MPV 8.6 fl (7.5-11.1) 11/13/18 11:00 CMP Sodium 137 mmol/L (136-145) 11/14/18 05:20 Potassium 3.7 mmol/L (3.5-5.1) 11/14/18 05:20 Chloride 97 mmol/L (98-107) L 11/14/18 05:20 Carbon Dioxide 32 mmol/L (21-32) 11/14/18 05:20 Anion Gap 8 MMOL/L (8-16) 11/14/18 05:20 BUN 37.1 mg/dL (7-18) H 11/14/18 05:20 Creatinine 5.2 mg/dL (0.55-1.3) H 11/14/18 05:20 Random Glucose 301 mg/dL (74-106) H* 11/14/18 05:20 Calcium 8.1 mg/dL (8.5-10.1) L 11/14/18 05:20 Total Bilirubin 0.4 mg/dL (0.2-1) 11/10/18 07:15 AST 13 U/L (15-37) L 11/10/18 07:15 ALT 11 U/L (13-61) L 11/10/18 07:15 Alkaline Phosphatase 60 U/L (45-117) 11/10/18 07:15 Total Protein 7.4 g/dl (6.4-8.2) 11/10/18 07:15 Albumin 3.1 g/dl (3.4-5.0) L 11/10/18 07:15 CARDIAC ENZYMES Creatine Kinase 58 U/L (26-192) 11/07/18 19:33 Troponin I < 0.02 ng/ml (0.00-0.05) 11/07/18 19:33 ASSESSMENT/PLAN: 68 y/o F, pmh of htn, dm type 2, hld, cva, esrd on dialysis via left arm fistula presents to the ED c/o of eye infection and weakness of one day duration associated with nausea, nbnb vomiting and nonbloody diarrhea. In the ED , pt was hypertensive at 218/103 which was controlled after administration of losartan and nifedipine. Pt is a poor historian and has multiple admissions for AMS and confusion. In the past dr. Correia has suggested hypertensive encephalopathy which could be the cause of pt's worsening cognition. apid response note from yesterday reviewed, discussed with resident over the phone. Mental status waxes and wanes. Can be alert at times but other times somnolent. Is on Acylclovir, his a.m. somnolent butquickly arousable and alert. Can tell me she's at [facility] as well as month is October and year is 2018. MRI brain with R degroot radiata and L fronal infarcts, no comment as to acute vs subacute vs chronic. Remains on ASA, plavix along with statin. carotid Dopplers completed and reviewed, moderate plaques 50-69% stenosis of the right common carotid. Continue hemodialysis, optimize renal status. monitor glucose, maintain euglycemic range. Continue infectious mgmt. Multiple CVAss also leading to limitation in patient's functionality.
[2018-11-14] MEDS ORDERED: PT OWN MED DRAWER 7, Y5N ONE ×3 (09:45→21:26)
[2018-11-14] MEDS: CARVEDILOL 6.25 MG TABLET (FP) PO SCH ×2 (10:09→21:35)
[2018-11-14] MEDS: NIFEdipine E.R. 90 MG TABLET (FP) PO SCH (10:09)
[2018-11-14] MEDS: ASPIRIN 81 MG CHEWABLE TABLETS PO SCH (10:09)
[2018-11-14] MEDS: LOSARTAN POTASSIUM 25 MG TABLET PO SCH (10:09)
[2018-11-14] MEDS: CLOPIDOGREL BISULFATE 75 MG TABLET (FP) PO SCH (10:10)
[2018-11-14] MEDS: POLYMYXIN B SULFATE/TMP 10 ML OPHTHALMIC SOLUTION OU SCH (10:10)
--- NOTE | 2018-11-14 10:49 | CONSULT ---
Admitting History and Physical - Primary Care Physician PCP: Long Lei - Admission History of Present Illness: This is a 68 year old woman with history of ESRD on HD (TTS), hypertension, CAD, CVA, DM who presented from home with generalized weakness/ lethargy, 4 day history of diarrhea/poor oral intake and found to have hyperkalemia and AMS. Rapid response for lethargy yesterday. Acute lacunar infarct L frontal lobe and R degroot radiata- patient is lethargic with waxing and waning Acute metabolic encephalopathy Zoster opthalmicus Selected Entries 11/13/18 11/13/18 11/13/18 12:06 14:00 21:33 Breakfast 0 Diet Tolerated Poor Poor Lunch 25% Supper 25% 11/14/18 10:43 Breakfast 0 Diet Tolerated Refused Lunch Supper Laboratory Tests 11/13/18 11/14/18 11:00 05:20 WBC 7.2 Random Glucose 301 H* Known to me from 2016 and 2017 evaluations. History Source: Medical Record Limitations to Obtaining History: Clinical Condition - Past Medical History SCRAP BALER: Yes: CVA, Dementia, TIA Cardiovascular: Yes: HTN, Hyperlipdemia Gastrointestinal: Yes: Other Renal/: Yes: Renal Failure (on HD ()), Hemodialysis, Other (s/p DDRT 2006) ...: No Heme/Onc: Yes: Anemia Endocrine: Yes: Diabetes Mellitus - Past Surgical History Past Surgical History: Yes: Appendectomy, , Hysterectomy, Kidney Transplant (2006 [facility]) - Smoking History Smoking history: Never smoked Have you smoked in the past 12 months: No Aproximately how many cigarettes per day: 0 - Alcohol/Substance Use Hx Alcohol Use: No - Social History ADL: Independent History of Recent Travel: No (traveled to [place] in August 2013) History - Admission Reason For Visit: FATIGUE, HERPES ZOSTER OPHTHALMICUS OF LEFT EYE, - Diagnostics X-ray: Report Reviewed CT Scan: Report Reviewed MRI: Report Reviewed - General Mental Status: Alert and Oriented, Awake and Alert, Able to Follow Commands, Forgetful, Intermittently Confused Attention: Intact Ability to Follow Directions: Good Head/Neck Control: Good - Hearing Hearing: Normal Hearing Aide: No With Patient: No Speech Evaluation - Communication Primary Language: MALAWIAN Communication: Yes: Within Normal Limits Oral Expression Ability: Yes: No Impairment - Speech Production Able to Make Needs Known: Yes: WNL Intelligibility: Yes: WNL - Speech Characteristics Voice Loudness: Normal Voice Pitch: Yes: Normal Voice Phonatory-based Quality: Yes: Normal Speech Pattern: Normal Speech Clarity: < 100% Nasal Resonance: Normal Articulation: Yes: Precise - Language/Auditory Comprehension Follows: Yes: 1 Stage Simple Commands Observation: Able to respond to yes/no queries: Yes, Comprehends Conversational Speech: Yes - Language/Verbal Expression Able to Respond to Simple Queries: Yes: WNL Able to Communicate Wants and Needs: Yes: WNL Functional Communication Status: Yes: WNL - Swallow Evaluation/Bedside Assessment Current Nutritional Intake: Soft, Thin Liquids, Other (Dislikes hospital food.) Oral Secretions: Yes: WFL Dentition: Yes: Edentulous (lower), Dental Appliance Upper Facial Symmetry on Retraction: Symmetrical Facial Movement: Controlled Against Resistance Opening: Normal Against Resistance Closing: Normal Pucker Lips: Normal Smile: Normal Lingual Movement: Normal, Symmetric Lingual Speed of Movement: Normal Lingual Movement Strgth Against Opposition: Normal Lingual Movement Characteristics: Normal Velopharyngeal Movement: Normal Laryngeal Elevation: WFL Laryngeal Movement: Able to Palpate Rate of Intake: WFL Labial Seal: WFL Chewing: WFL (fairly efficient. No lower dentition) A-P Transit: WFL Timing of Swallow: WFL Coughing/Throat Clear: No Change in Voice: No Recommendations - Speech Evaluation, Impression/Plan Impression: Communication intact. Swallowing is functional. - Dysphagia Impressions/Plan Swallowing Skills: WFL *Silent aspiration: cannot be R/O at bedside Dysphagia Treatment Plan: Chin Tuck/Down, 1/2 tsp. at a time, Elevate HOB during feed - Recommendations Diet Consistency: Other (soft, easy to chew. Pt likes Chicken and Burgers) Medication Administration: Whole with water Liquids: Thin Liquids
--- NOTE | 2018-11-14 11:24 | PN ---
Progress Note, Physician History of Present Illness: AWAKE IN BED ORIENTED TPO PERSON/ PLACE/DATE WAS AGITATED THIS AM WANTS TO GO HOME DENIES L PERIORBITAL PAIN NO EYE PAIN OR CHANGE IN VISUAL ACUITY AFEBRILE - Current Medication List Current Medications: Active Medications Aspirin (Asa -) 81 mg PO DAILY [facility] Last Admin: 11/14/18 10:09 Dose: 81 mg Atorvastatin Calcium (Lipitor -) 40 mg PO HS [facility] Last Admin: 11/13/18 21:02 Dose: 40 mg Carvedilol (Coreg -) 6.25 mg PO BID [facility] Last Admin: 11/14/18 10:09 Dose: 6.25 mg Clopidogrel Bisulfate (Plavix -) 75 mg PO DAILY [facility] Last Admin: 11/14/18 10:10 Dose: 75 mg Heparin Sodium (Porcine) (Heparin -) 5,000 unit SQ TID [facility] Last Admin: 11/14/18 05:52 Dose: 5,000 unit Acyclovir 350 mg/ Dextrose 107 mls @ 107 mls/hr IVPB Q24H [facility] Last Admin: 11/13/18 21:03 Dose: 107 mls/hr Insulin Aspart (Novolog Vial Sliding Scale -) 1 vial SQ ACHS [facility]; Protocol Last Admin: 11/14/18 06:10 Dose: 6 units Losartan Potassium (Cozaar -) 25 mg PO DAILY [facility] Last Admin: 11/14/18 10:09 Dose: 25 mg Metoprolol Tartrate (Lopressor Injection -) 5 mg IVPUSH Q4H PRN PRN Reason: SYSTOLIC BP >140 Nifedipine (Procardia Xl -) 90 mg PO DAILY [facility] Last Admin: 11/14/18 10:09 Dose: 90 mg Nystatin (Nystatin Oral Suspension -) 500,000 units PO Q6HPO [facility] Last Admin: 11/14/18 05:52 Dose: 500,000 units Polymyxin/Trimethoprim Sulfate (Polytrim Opthalmic Solution -) 1 drop OU DAILY [facility] Last Admin: 11/14/18 10:10 Dose: 1 drop - Objective Vital Signs: Vital Signs Temperature 98.2 F 11/14/18 09:40 Pulse Rate 83 11/14/18 09:40 Respiratory Rate 20 11/14/18 09:40 Blood Pressure 121/61 11/14/18 09:40 O2 Sat by Pulse Oximetry (%) 95 11/13/18 21:00 Constitutional: Yes: No Distress Eyes: Yes: Conjunctiva Clear HENT: Yes: Other (L PERIORBITAL RASH ENCRUSTED) Cardiovascular: Yes: Regular Rate and Rhythm, S1, S2 Respiratory: Yes: CTA Bilaterally Gastrointestinal: Yes: Normal Bowel Sounds, Soft. No: Tenderness Edema: No Labs: CBC, BMP 11/13/18 11:00 11/14/18 05:20 INR, PTT INR 0.98 (0.83-1.09) 11/08/18 20:00 Assessment/Plan VZV L V1 DISTRIBUTION IMPROVED ? TOXIC / METABOLIC ENCEPHALOPATHY ? VZV VASCULOPATHY ESRD DISCUSSED WITH NEURO- DOES NOT FEEL THIS IS VZV ENCEPHALOPATHY CONT ACV ADJUSTED FOR ESRD DAY # WILL NEED 14 D COURSE WILL GIVE SHORT COURSE STEROIDS (PREDNISONE 1MG/KG QD X 5D) FOR POSSIBLE VZV VASCULOPATHY OPHTHO F/U PT FOR AMBULATION
--- NOTE | 2018-11-14 12:58 | PN ---
Progress Note (short form) - Note Progress Note: seen at bedside with daughter present hd orders for hd for tomorrow Active Medications Aspirin (Asa -) 81 mg PO DAILY [facility] Last Admin: 11/14/18 10:09 Dose: 81 mg Atorvastatin Calcium (Lipitor -) 40 mg PO HS [facility] Last Admin: 11/13/18 21:02 Dose: 40 mg Carvedilol (Coreg -) 6.25 mg PO BID [facility] Last Admin: 11/14/18 10:09 Dose: 6.25 mg Clopidogrel Bisulfate (Plavix -) 75 mg PO DAILY [facility] Last Admin: 11/14/18 10:10 Dose: 75 mg Heparin Sodium (Porcine) (Heparin -) 5,000 unit SQ TID [facility] Last Admin: 11/14/18 05:52 Dose: 5,000 unit Acyclovir 350 mg/ Dextrose 107 mls @ 107 mls/hr IVPB Q24H [facility] Last Admin: 11/13/18 21:03 Dose: 107 mls/hr Sodium Chloride (Normal Saline -) 250 mls @ 3,000 mls/hr IV PRN PRN PRN Reason: Hypotension during Dialysis Stop: 11/15/18 12:50 Insulin Aspart (Novolog Vial Sliding Scale -) 1 vial SQ ACHS [facility]; Protocol Last Admin: 11/14/18 12:09 Dose: 4 units Losartan Potassium (Cozaar -) 25 mg PO DAILY [facility] Last Admin: 11/14/18 10:09 Dose: 25 mg Metoprolol Tartrate (Lopressor Injection -) 5 mg IVPUSH Q4H PRN PRN Reason: SYSTOLIC BP >140 Nifedipine (Procardia Xl -) 90 mg PO DAILY [facility] Last Admin: 11/14/18 10:09 Dose: 90 mg Nystatin (Nystatin Oral Suspension -) 500,000 units PO Q6HPO [facility] Last Admin: 11/14/18 12:09 Dose: Not Given Polymyxin/Trimethoprim Sulfate (Polytrim Opthalmic Solution -) 1 drop OU DAILY [facility] Last Admin: 11/14/18 10:10 Dose: 1 drop Prednisone (Deltasone -) 60 mg PO DAILY [facility] Last Vital Signs Temp Pulse Resp BP Pulse Ox 98.2 F 83 20 121/61 95 11/14/18 09:40 11/14/18 09:40 11/14/18 09:40 11/14/18 09:40 11/13/18 21:00 CBC, BMP 11/13/18 11:00 11/14/18 05:20
[2018-11-14] MEDS: predniSONE 20 MG TABLET (UD) PO SCH (14:12)
--- NOTE | 2018-11-14 15:08 | PN ---
Teaching Attending Note Name of Resident: Trina Mata ATTENDING PHYSICIAN STATEMENT I saw and evaluated the patient. I reviewed the resident's note and discussed the case with the resident. I agree with the resident's findings and plan as documented. SUBJECTIVE: Feeling better. denies visual disturbance, headache, limb numbness/ weakness/tingling. Fever overnight. OBJECTIVE: T 100.7. Hemodynamically Stable. Last Vital Signs Temp Pulse Resp BP Pulse Ox 98.1 F 78 18 101/51 L 95 11/14/18 14:26 11/14/18 14:26 11/14/18 14:26 11/14/18 14:26 11/13/18 21:00 HEENT - L loreta-orbital crusted vesicular rash. No conjuntivitis. NORAH. Heart - S1, S2, SM Lungs - clear to auscultation. Abdomen - Soft, non-tender. Bowel Sounds normal. Extremities - no edema, no calf tenderness. Laboratory Results - last 24 hr 11/13/18 11/13/18 11/14/18 17:41 20:39 05:20 Sodium 137 Potassium 3.7 Chloride 97 L Carbon Dioxide 32 Anion Gap 8 BUN 37.1 H Creatinine 5.2 H Est GFR (CKD-EPI)AfAm 9.26 Est GFR (CKD-EPI)NonAf 7.99 POC Glucometer 223 271 Random Glucose 301 H* Calcium 8.1 L 11/14/18 06:09 Sodium Potassium Chloride Carbon Dioxide Anion Gap BUN Creatinine Est GFR (CKD-EPI)AfAm Est GFR (CKD-EPI)NonAf POC Glucometer 292 Random Glucose Calcium Current Medications Generic Name Dose Route Start Last Admin Trade Name Lars PRN Reason Stop Dose Admin Aspirin 81 mg 11/13/18 10:00 11/14/18 10:09 Asa - PO 81 mg DAILY NAJMA Administration Atorvastatin Calcium 40 mg 11/13/18 19:00 11/13/18 21:02 Lipitor - PO 40 mg HS NAJMA Administration Carvedilol 6.25 mg 11/13/18 19:03 11/14/18 10:09 Coreg - PO 6.25 mg BID NAJMA Administration Clopidogrel Bisulfate 75 mg 11/13/18 10:00 11/14/18 10:10 Plavix - PO 75 mg DAILY NAJMA Administration Heparin Sodium (Porcine) 5,000 unit 11/12/18 22:00 11/14/18 14:12 Heparin - SQ 5,000 unit TID NAJMA Administration Acyclovir 350 mg/ Dextrose 107 mls @ 107 mls/hr 11/12/18 20:00 11/13/18 21:03 IVPB 107 mls/hr Q24H NAJMA Administration Sodium Chloride 250 mls @ 3,000 mls/hr 11/14/18 12:49 Normal Saline - IV 11/15/18 12:50 PRN PRN Hypotension during Dialysis Insulin Aspart 1 vial 11/12/18 22:00 11/14/18 12:09 Novolog Vial Sliding Scale - SQ 4 units ACHS NAJMA Administration Protocol Losartan Potassium 25 mg 11/13/18 19:05 11/14/18 10:09 Cozaar - PO 25 mg DAILY NAJMA Administration Metoprolol Tartrate 5 mg 11/12/18 18:55 Lopressor Injection - IVPUSH Q4H PRN SYSTOLIC BP >140 Nifedipine 90 mg 11/13/18 19:05 11/14/18 10:09 Procardia Xl - PO 90 mg DAILY NAJMA Administration Nystatin 500,000 units 11/13/18 06:00 11/14/18 12:09 Nystatin Oral Suspension - PO Not Given Q6HPO NAJMA Polymyxin/Trimethoprim Sulfate 1 drop 11/14/18 10:00 11/14/18 10:10 Polytrim Opthalmic Solution - OU 1 drop DAILY NAJMA Administration Prednisone 60 mg 11/14/18 11:30 11/14/18 14:12 Deltasone - PO 60 mg DAILY NAJMA Administration Home Medications Medication Instructions Recorded Acetaminophen [Tylenol Extra 500 mg PO PRN PRN 11/07/18 Strength] Aspirin [ASA -] 81 mg PO DAILY 11/07/18 Atorvastatin Ca [Lipitor] 40 mg PO HS 11/07/18 Carvedilol [Coreg -] 6.25 mg PO BID 11/07/18 Donepezil HCl [Aricept -] 10 mg PO DAILY 11/07/18 Losartan Potassium [Cozaar -] 25 mg PO DAILY 11/07/18 Memantine HCl [Namenda -] 10 mg PO BID 11/07/18 Nifedipine [Procardia Xl] 90 mg PO DAILY 11/07/18 Valacyclovir HCl [Valtrex -] 500 mg PO BID 11/07/18 Linagliptin [Tradjenta] 5 mg PO DAILY 08/22/19 Pantoprazole Sodium [Protonix] 40 mg PO DAILY 11/08/18 Sodium Polystyrene Sulfonate 30 gm PO DAILY 11/08/18 [Kayexalate -] ASSESSMENT AND PLAN: 68 year old female wit history of DM2, ESRD on HD, CVA, recently diagnosed with zoster opthalmicus. 1. Zoster Ophthalmicus - Day 7 IV acyclovir. Awaiting Ophthalmology consult. ID following - recommend 14 days of IV acyclovir. Started on Prednisone for possible VZV vasculopathy. 2. Acute metabolic encephalopathy, unlikely VZV encephalopathy. Encephalopathy resolving. 3. Acute/Subacute CVA - L frontal lobe and R degroot radiata infarcts on MRI. Echo - EF 65% Carotid Duplex - moderate plaque on the right common carotid 50-69% - no hemodynamically significant stenosis as per Vascular Sx. Continue Aspirin, Plavix, Lipitor. 4. HTN - continue Nifedipine, Coreg, Cozaar. 5. Hyponatremia/Hyperkalemia - resolved. 6. ESRD on HD (TTS) - Nephrology following. Anemia - normocytic, likely sec to ESRD. Will send Anemia work-up. 7. DM 2 - Maintain on sliding scale Novolog. DVT Px - Heparin SQ
--- NOTE | 2018-11-14 17:20 | PN ---
Physical Exam: SUBJECTIVE: Patient seen and examined. Pt was trying to get out of bed and was very agitated. Nursing staff was able to help her back into the bed and used a vest restraint. She was able to speak to her son on the phone and was calmed. Exam was brief as to not further agitate pt. OBJECTIVE: Vital Signs Period Temp Pulse Resp BP Sys/Travis Pulse Ox Last 24 Hr 98.1 F-100.7 F 78-99 18-20 101-141/51-65 95 GENERAL: The patient is A/Ox3, agitated HEAD: Normal with no signs of trauma. EYES: PERRL, extraocular movements intact, sclera anicteric, left conjunctiva injected with eyelid swelling ENT: Ears normal, nares patent, moist mucous membranes NECK: Trachea midline, full range of motion EXTREMITIES: warm, no edema. NEUROLOGICAL: Cranial nerves II through XII grossly intact. Normal speech, gait not observed. PSYCH: agitated SKIN: Warm, dry, normal turgor, herpetic lesions on left upper eyelid and just above the brow with no crossing of midline, with increased crusting and decreased erythema Laboratory Results - last 24 hr 11/13/18 11/13/18 11/14/18 17:41 20:39 05:20 Sodium 137 Potassium 3.7 Chloride 97 L Carbon Dioxide 32 Anion Gap 8 BUN 37.1 H Creatinine 5.2 H Est GFR (CKD-EPI)AfAm 9.26 Est GFR (CKD-EPI)NonAf 7.99 POC Glucometer 223 271 Random Glucose 301 H* Calcium 8.1 L 11/14/18 11/14/18 11/14/18 06:09 12:07 16:24 Sodium Potassium Chloride Carbon Dioxide Anion Gap BUN Creatinine Est GFR (CKD-EPI)AfAm Est GFR (CKD-EPI)NonAf POC Glucometer 292 248 285 Random Glucose Calcium Active Medications Generic Name Dose Route Start Last Admin Trade Name Freq PRN Reason Stop Dose Admin Aspirin 81 mg 11/13/18 10:00 11/14/18 10:09 Asa - PO 81 mg DAILY NAJMA Administration Atorvastatin Calcium 40 mg 11/13/18 19:00 11/13/18 21:02 Lipitor - PO 40 mg HS NAJMA Administration Carvedilol 6.25 mg 11/13/18 19:03 11/14/18 10:09 Coreg - PO 6.25 mg BID NAJMA Administration Clopidogrel Bisulfate 75 mg 11/13/18 10:00 11/14/18 10:10 Plavix - PO 75 mg DAILY NAJMA Administration Heparin Sodium (Porcine) 5,000 unit 11/12/18 22:00 11/14/18 14:12 Heparin - SQ 5,000 unit TID NAJMA Administration Acyclovir 350 mg/ Dextrose 107 mls @ 107 mls/hr 11/12/18 20:00 11/13/18 21:03 IVPB 107 mls/hr Q24H NAJMA Administration Sodium Chloride 250 mls @ 3,000 mls/hr 11/14/18 12:49 Normal Saline - IV 11/15/18 12:50 PRN PRN Hypotension during Dialysis Insulin Aspart 1 vial 11/12/18 22:00 11/14/18 16:26 Novolog Vial Sliding Scale - SQ 6 units ACHS NAJMA Administration Protocol Losartan Potassium 25 mg 11/13/18 19:05 11/14/18 10:09 Cozaar - PO 25 mg DAILY NAJMA Administration Metoprolol Tartrate 5 mg 11/12/18 18:55 Lopressor Injection - IVPUSH Q4H PRN SYSTOLIC BP >140 Nifedipine 90 mg 11/13/18 19:05 11/14/18 10:09 Procardia Xl - PO 90 mg DAILY NAJMA Administration Nystatin 500,000 units 11/13/18 06:00 11/14/18 12:09 Nystatin Oral Suspension - PO Not Given Q6HPO NAJMA Polymyxin/Trimethoprim Sulfate 1 drop 11/14/18 10:00 11/14/18 10:10 Polytrim Opthalmic Solution - OU 1 drop DAILY NAJMA Administration Prednisone 60 mg 11/14/18 11:30 11/14/18 14:12 Deltasone - PO 60 mg DAILY NAJMA Administration ASSESSMENT/PLAN: Ms. Murphy is a 68yo female with HTN, DM type 2, HLD, CVA, ESRD on dialysis (T , , ) who presented on 11/07/18 with AMS, weakness, and vesicular rash on left eyelid. 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 Right arm tremor is no longer present on exam. 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 Pt is on day 8 of acyclovir and lesions are resolving. Yesterday pt was uremic prior to dialysis BUN 74.8 has decreased to 37.1. MRI showed acute lacunar infarcts right degroot radiata and left frontal lobe per radiology report. CT showed right periventricular chronic lacunar infarct. Carotid doppler showed right common carotid bifurcation 50-69% stenosis. -vascular consult with Dr. Norton ordered. -occasional PVCs on tele -lipid profile HDL 39, LDL 77, total 139, triglycerides 136 -continue ASA -continue Plavix -atorvastatin 40mg -PT for generalized weakness -Swallow eval recommended soft diet. Pt's daughter said she has not been eating because of limited selection of foods. She eats regular diet at home. Recs from tool room supervisor appreciated on equivalent foods that can be offered to the patient that still follow "soft diet" protocol. 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 Vesicular rash on upper lid and above brow not crossing midline. -continue acyclovir -continue Polytrim- now apply to both eyes -ophtho Dr. Medina consult ordered -will d/c contact precautions when vesicles crust over completely #ESRD on dialysis BUN ranges 20s-40s, today 37.1 -continue dialysis -nephro Dr. Campoverde following #DM type 2 BG 200s average -continue SSI -BGM #HTN 110s/50s, stable -continue to monitor BP -continue losartan -continue nifedipine -continue carvedilol -Lopressor push PRN #HLD -lipid profile HDL 39, LDL 77, total 139, triglycerides 136 -atorvastatin decreased back to home dose 40mg after speaking with neuro Dr. Johnson because LDL is 77 FEN -no standing fluids -monitor BUN, electrolytes -soft diet Na controlled DVT Ppe Heparin Dispo consider d/c to short-term rehab Visit type - Emergency Visit Emergency Visit: Yes ED Registration Date: 11/07/18 Care time: The patient presented to the Emergency Department on the above date and was hospitalized for further evaluation of their emergent condition. - New Patient This patient is new to me today: No - Critical Care Critical Care patient: No - Discharge Referral Referred to [facility] Med [facility] No ATTENDING PHYSICIAN STATEMENT I saw and evaluated the patient. I reviewed the resident's note and discussed the case with the resident. I agree with the resident's findings and plan as documented. SUBJECTIVE: OBJECTIVE: ASSESSMENT AND PLAN:
[2018-11-14 19:09] LABS: IRON SERUM 24 ug/dL (50-175); TOTAL IRON BINDING CAPACITY 94 ug/dL (250-450)
[2018-11-14] MEDS: ACYCLOVIR INJECTION 350 MG in DEXTROSE 5%-WATER - 100 ML IVPB SCH (21:34)
[2018-11-14] MEDS: ATORVASTATIN CA 40 MG TABLET (FP) PO SCH (21:35)
[2018-11-15] MEDS: NYSTATIN 500,000 UNITS/5 ML SUSPENSION PO SCH ×5 (00:33→23:56)
[2018-11-15 01:10] LABS: BLOOD UREA NITROGEN 60.7 mg/dL (7-18); CALCIUM 7.9 mg/dL (8.5-10.1); CREATININE 6.7 mg/dL (0.55-1.3)
[2018-11-15] MEDS ORDERED: INSULIN (NOVOLOG) ASPART 100 UNITS/ML 10ML VIAL SQ ONE (02:26)
[2018-11-15 02:29] LABS: ALBUMIN 2.9 g/dl (3.4-5.0)
[2018-11-15] MEDS: HEPARIN NA (PORCINE) 5,000 UNITS/ML 1ML VIAL SQ SCH (05:10)
[2018-11-15] MEDS: INSULIN SLIDING SCALE (NOVOLOG) 1 VIAL SQ SCH ×4 (06:04→22:29)
[2018-11-15 08:04] LABS: BASO % 0.1 % (0-2.0); HEMOGLOBIN 9.6 GM/dL (10.7-15.3); LYMPH % 9.6 % (8-40); MCH 31.3 pg (25.7-33.7); MCHC 33.1 g/dl (32.0-36.0); MEAN CELL VOLUME 94.5 fl (80-96); MEAN PLT VOLUME 8.9 fl (7.5-11.1); MONO % 4.5 % (3.8-10.2); NEUT % 85.8 % (42.8-82.8); PLATELET COUNT 238 K/MM3 (134-434); RBC 3.07 M/mm3 (3.60-5.2); RDW 13.5 % (11.6-15.6); WHITE BLOOD COUNT 10.4 K/mm3 (4.0-10.0)
[2018-11-15 08:41] LABS: ALBUMIN 2.8 g/dl (3.4-5.0); BLOOD UREA NITROGEN 73.8 mg/dL (7-18); CALCIUM 8.4 mg/dL (8.5-10.1); CREATININE 7.2 mg/dL (0.55-1.3); POTASSIUM 4.5 mmol/L (3.5-5.1); TOT PROT 7.6 g/dl (6.4-8.2)
--- NOTE | 2018-11-15 09:09 | PN ---
Progress Note (short form) - Note Progress Note: Neurology CHIEF COMPLAINT: weakness HISTORY OF PRESENT ILLNESS: 68 y/o F, pmh of htn, dm type 2, hld, cva, esrd on dialysis via left arm fistula presents to the ED c/o of eye infection and weakness of one day duration associated with nausea, nbnb vomiting and nonbloody diarrhea. In the ED , pt was hypertensive at 218/103 which was controlled after administration of losartan and nifedipine. Pt is a poor historian and has multiple admissions for AMS and confusion. In the past dr. Correia has suggested hypertensive encephalopathy which could be the cause of pt's worsening cognition. apid response note from yesterday reviewed, discussed with resident over the phone. Mental status waxes and wanes. Can be alert at times but other times somnolent. Is on Acylclovir, his a.m. somnolent butquickly arousable and alert. Can tell me she's at [facility] as well as month is October and year is 2018. MRI brain with R degroot radiata and L fronal infarcts, no comment as to acute vs subacute vs chronic. Remains on ASA, plavix along with statin. carotid Dopplers completed and reviewed, moderate plaques 50-69% stenosis of the right common carotid. Discussed with ID specialist yesterday and he was considering starting steroids as he reported seeing cases of herpes ophthalmicus with subsequent vasculitis , no objection to steroids at this point. this a.m., she remains in [facility] but, cooperative, aware that she is in the hospital, can tell me the date as well as the name of the president Active Medications Aspirin (Asa -) 81 mg PO DAILY [facility] Last Admin: 11/14/18 10:09 Dose: 81 mg Atorvastatin Calcium (Lipitor -) 40 mg PO HS [facility] Last Admin: 11/14/18 21:35 Dose: 40 mg Carvedilol (Coreg -) 6.25 mg PO BID [facility] Last Admin: 11/14/18 21:35 Dose: 6.25 mg Clopidogrel Bisulfate (Plavix -) 75 mg PO DAILY [facility] Last Admin: 11/14/18 10:10 Dose: 75 mg Heparin Sodium (Porcine) (Heparin -) 5,000 unit SQ BID [facility] Acyclovir 350 mg/ Dextrose 107 mls @ 107 mls/hr IVPB Q24H [facility] Last Admin: 11/14/18 21:34 Dose: 107 mls/hr Sodium Chloride (Normal Saline -) 250 mls @ 3,000 mls/hr IV PRN PRN PRN Reason: Hypotension during Dialysis Stop: 11/15/18 12:50 Insulin Aspart (Novolog Vial Sliding Scale -) 1 vial SQ ACHS [facility]; Protocol Last Admin: 11/15/18 06:04 Dose: Not Given Insulin Detemir (Levemir Vial) 10 units SQ DAILY@0700 [facility] Losartan Potassium (Cozaar -) 25 mg PO DAILY [facility] Last Admin: 11/14/18 10:09 Dose: 25 mg Metoprolol Tartrate (Lopressor Injection -) 5 mg IVPUSH Q4H PRN PRN Reason: SYSTOLIC BP >140 Nifedipine (Procardia Xl -) 90 mg PO DAILY [facility] Last Admin: 11/14/18 10:09 Dose: 90 mg Nystatin (Nystatin Oral Suspension -) 500,000 units PO Q6HPO [facility] Last Admin: 11/15/18 05:10 Dose: Not Given Polymyxin/Trimethoprim Sulfate (Polytrim Opthalmic Solution -) 1 drop OU DAILY [facility] Last Admin: 11/14/18 10:10 Dose: 1 drop Prednisone (Deltasone -) 60 mg PO DAILY [facility] Last Admin: 11/14/18 14:12 Dose: 60 mg PHYSICAL EXAMINATION Vital Signs Period Temp Pulse Resp BP Sys/Travis Pulse Ox Last 24 Hr 98.1 F-98.9 F 78-90 18-20 101-126/51-61 97 GENERAL: Awake, alert EYES: Left eye discharge- dry and crusted, redness, mild superficial swelling and difficult to keep open. Pupils equal, round and reactive to light, extraocular movements intact, EARS, NOSE, THROAT: Vesicular rash on the left forehead present. Oropharynx clear without exudates. Moist mucous membranes. NECK: Normal range of motion, supple without lymphadenopathy, JVD, or masses. LUNGS: Breath sounds equal, clear to auscultation bilaterally. No wheezes, and no crackles. No accessory muscle use. HEART: Regular rate and rhythm, normal S1 and S2 without murmur, rub or gallop. ABDOMEN: Soft, nontender, not distended, normoactive bowel sounds, no guarding, no rebound, no masses. No hepatomegaly or splenomegaly. MUSCULOSKELETAL: No CVA tenderness. UPPER EXTREMITIES: 2+ pulses, warm, well-perfused. No cyanosis. No peripheral edema. LOWER EXTREMITIES: 2+ pulses, warm, well-perfused. No peripheral edema. NEUROLOGICAL: AWake, alert, not participating in confrontation testing but moves extremities grossly, sensory intact PSYCHIATRIC: Cooperative. Good eye contact. Appropriate mood and affect. CBCD WBC 10.4 K/mm3 (4.0-10.0) H 11/15/18 07:10 RBC 3.07 M/mm3 (3.60-5.2) L 11/15/18 07:10 Hgb 9.6 GM/dL (10.7-15.3) L 11/15/18 07:10 Hct 29.0 % (32.4-45.2) L 11/15/18 07:10 MCV 94.5 fl (80-96) 11/15/18 07:10 MCHC 33.1 g/dl (32.0-36.0) 11/15/18 07:10 RDW 13.5 % (11.6-15.6) 11/15/18 07:10 Plt Count 238 K/MM3 (134-434) D 11/15/18 07:10 MPV 8.9 fl (7.5-11.1) 11/15/18 07:10 CMP Sodium 134 mmol/L (136-145) L 11/15/18 07:10 Potassium 4.5 mmol/L (3.5-5.1) 11/15/18 07:10 Chloride 93 mmol/L (98-107) L 11/15/18 07:10 Carbon Dioxide 31 mmol/L (21-32) 11/15/18 07:10 Anion Gap 10 MMOL/L (8-16) 11/15/18 07:10 BUN 73.8 mg/dL (7-18) H 11/15/18 07:10 Creatinine 7.2 mg/dL (0.55-1.3) H 11/15/18 07:10 Random Glucose 296 mg/dL (74-106) H 11/15/18 07:10 Calcium 8.4 mg/dL (8.5-10.1) L 11/15/18 07:10 Total Bilirubin 1.0 mg/dL (0.2-1) 11/15/18 07:10 AST 15 U/L (15-37) 11/15/18 07:10 ALT 15 U/L (13-61) 11/15/18 07:10 Alkaline Phosphatase 60 U/L (45-117) 11/15/18 07:10 Total Protein 7.6 g/dl (6.4-8.2) 11/15/18 07:10 Albumin 2.8 g/dl (3.4-5.0) L 11/15/18 07:10 CARDIAC ENZYMES Creatine Kinase 58 U/L (26-192) 11/07/18 19:33 Troponin I < 0.02 ng/ml (0.00-0.05) 11/07/18 19:33 ASSESSMENT/PLAN: 68 y/o F, pmh of htn, dm type 2, hld, cva, esrd on dialysis via left arm fistula presents to the ED c/o of eye infection and weakness of one day duration associated with nausea, nbnb vomiting and nonbloody diarrhea. In the ED , pt was hypertensive at 218/103 which was controlled after administration of losartan and nifedipine. Pt is a poor historian and has multiple admissions for AMS and confusion. In the past dr. Correia has suggested hypertensive encephalopathy which could be the cause of pt's worsening cognition. apid response note from yesterday reviewed, discussed with resident over the phone. Mental status waxes and wanes. Can be alert at times but other times somnolent. Is on Acylclovir, his a.m. somnolent butquickly arousable and alert. Can tell me she's at [facility] as well as month is October and year is 2018. MRI brain with R degroot radiata and L fronal infarcts, no comment as to acute vs subacute vs chronic. Remains on ASA, plavix along with statin. carotid Dopplers completed and reviewed, moderate plaques 50-69% stenosis of the right common carotid. Discussed with ID specialist yesterday and he was considering starting steroids as he reported seeing cases of herpes ophthalmicus with subsequent vasculitis , no objection to steroids at this point. this a.m., she remains in [facility] but, cooperative, aware that she is in the hospital, can tell me the date as well as the name of the president. Continue hemodialysis, optimize renal status. monitor glucose, maintain euglycemic range. Continue infectious mgmt. Multiple CVAss also leading to limitation in patient's functionality.
[2018-11-15] MEDS ORDERED: HEPARIN NA (PORCINE) 5,000 UNITS/ML 1ML VIAL SQ SCH (10:00)
--- NOTE | 2018-11-15 10:15 | PN ---
Progress Note, PROGRAM CLERK - Note Progress Note: Selected Entries 11/14/18 11/14/18 11/14/18 10:43 14:26 18:00 Breakfast 0 Lunch 75% Supper 25% Laboratory Tests 11/13/18 11/13/18 11/14/18 11:00 11:00 05:20 WBC 7.2 Random Glucose 154 H 301 H* 11/15/18 11/15/18 00:20 07:10 WBC 10.4 H Random Glucose 520 H* Glucose elevated. Per nursing,had Prednisone yesterday. pt on Nepro for dialysis , and cannot have Glucerna. Contacted by nursing yesterday afternoon that family would like pt on reg diet. Pt has specific foods that she accepts and has not had a good appetite. She ate fish for lunch well yesterday,tolerated well with family. Pt chews fairly well although dentition is limited. Refused breakfast today but had Nepro without difficulty. REC: Reg diet, menu selection. Nepro as supplement b/n meals or as meal if refuses tray. RD consult
[2018-11-15] MEDS ORDERED: PT OWN MED DRAWER 7, Y5N ONE ×4 (11:13→20:54)
--- NOTE | 2018-11-15 12:35 | PN ---
Teaching Attending Note Name of Resident: Trina Mata ATTENDING PHYSICIAN STATEMENT I saw and evaluated the patient. I reviewed the resident's note and discussed the case with the resident. I agree with the resident's findings and plan as documented. SUBJECTIVE: Feeling better. Denies visual disturbance, headache, limb numbness/ weakness/tingling. No fever overnight. OBJECTIVE: Fever resolved. Afebrile overnight. Hemodynamically Stable. Last Vital Signs Temp Pulse Resp BP Pulse Ox 98.9 F 86 18 126/56 L 97 11/15/18 02:18 11/15/18 02:18 11/15/18 02:18 11/15/18 02:18 11/14/18 20:06 HEENT - L loreta-orbital crusted vesicular rash. No conjunctivitis. NORAH. Heart - S1, S2, SM Lungs - clear to auscultation. Abdomen - Soft, non-tender. Bowel Sounds normal. Extremities - no edema, no calf tenderness. Neuro - AAO x 3. Moving all 4 extremities. Laboratory Results - last 24 hr 11/14/18 11/14/18 11/14/18 12:07 16:24 17:05 WBC RBC Hgb Hct MCV MCH MCHC RDW Plt Count MPV Absolute Neuts (auto) Neutrophils % Lymphocytes % Monocytes % Eosinophils % Basophils % Nucleated RBC % Sodium Potassium Chloride Carbon Dioxide Anion Gap BUN Creatinine Est GFR (CKD-EPI)AfAm Est GFR (CKD-EPI)NonAf POC Glucometer 248 285 Random Glucose Calcium Iron 24 L TIBC 94 L Iron Saturation 25 Unsaturated IBC 70 L Total Bilirubin AST ALT Alkaline Phosphatase Total Protein Albumin Vitamin B12 2801 H Serum Folate 11/14/18 11/14/18 11/14/18 21:31 21:33 22:52 WBC RBC Hgb Hct MCV MCH MCHC RDW Plt Count MPV Absolute Neuts (auto) Neutrophils % Lymphocytes % Monocytes % Eosinophils % Basophils % Nucleated RBC % Sodium Potassium Chloride Carbon Dioxide Anion Gap BUN Creatinine Est GFR (CKD-EPI)AfAm Est GFR (CKD-EPI)NonAf POC Glucometer [phone] Random Glucose Calcium Iron TIBC Iron Saturation Unsaturated IBC Total Bilirubin AST ALT Alkaline Phosphatase Total Protein Albumin Vitamin B12 Serum Folate 11/15/18 11/15/18 11/15/18 00:12 00:20 03:28 WBC RBC Hgb Hct MCV MCH MCHC RDW Plt Count MPV Absolute Neuts (auto) Neutrophils % Lymphocytes % Monocytes % Eosinophils % Basophils % Nucleated RBC % Sodium 136 Potassium 4.0 Chloride 93 L Carbon Dioxide 31 Anion Gap 12 BUN 60.7 H Creatinine 6.7 H Est GFR (CKD-EPI)AfAm 6.82 Est GFR (CKD-EPI)NonAf 5.88 POC Glucometer 493 376 Random Glucose 520 H* Calcium 7.9 L Iron 25 L TIBC Iron Saturation Unsaturated IBC Total Bilirubin AST ALT Alkaline Phosphatase Total Protein Albumin 2.9 L Vitamin B12 Serum Folate 11/15/18 11/15/18 11/15/18 05:07 07:10 07:10 WBC 10.4 H RBC 3.07 L Hgb 9.6 L Hct 29.0 L MCV 94.5 MCH 31.3 MCHC 33.1 RDW 13.5 Plt Count 238 D MPV 8.9 Absolute Neuts (auto) 8.9 H Neutrophils % 85.8 H D Lymphocytes % 9.6 D Monocytes % 4.5 Eosinophils % 0.0 D Basophils % 0.1 Nucleated RBC % 0 Sodium 134 L Potassium 4.5 Chloride 93 L Carbon Dioxide 31 Anion Gap 10 BUN 73.8 H Creatinine 7.2 H Est GFR (CKD-EPI)AfAm 6.25 Est GFR (CKD-EPI)NonAf 5.39 POC Glucometer 331 Random Glucose 296 H Calcium 8.4 L Iron TIBC Iron Saturation Unsaturated IBC Total Bilirubin 1.0 AST 15 ALT 15 Alkaline Phosphatase 60 Total Protein 7.6 Albumin 2.8 L Vitamin B12 Serum Folate Current Medications Generic Name Dose Route Start Last Admin Trade Name Freq PRN Reason Stop Dose Admin Aspirin 81 mg 11/13/18 10:00 11/14/18 10:09 Asa - PO 81 mg DAILY [facility] Administration Atorvastatin Calcium 40 mg 11/13/18 19:00 11/14/18 21:35 Lipitor - PO 40 mg HS NAJMA Administration Carvedilol 6.25 mg 11/13/18 19:03 11/14/18 21:35 Coreg - PO 6.25 mg BID [facility] Administration Clopidogrel Bisulfate 75 mg 11/13/18 10:00 11/14/18 10:10 Plavix - PO 75 mg DAILY [facility] Administration Heparin Sodium (Porcine) 5,000 unit 11/15/18 10:00 Heparin - SQ BID [facility] Acyclovir 350 mg/ Dextrose 107 mls @ 107 mls/hr 11/12/18 20:00 11/14/18 21:34 IVPB 107 mls/hr Q24H [facility] Administration Sodium Chloride 250 mls @ 3,000 mls/hr 11/15/18 12:49 Normal Saline - IV 11/15/18 12:50 PRN PRN Hypotension during Dialysis Insulin Aspart 1 vial 11/12/18 22:00 11/15/18 06:04 Novolog Vial Sliding Scale - SQ Not Given ACHS [facility] Protocol Insulin Detemir 10 units 11/15/18 09:00 Levemir Vial SQ DAILY@0700 [facility] Losartan Potassium 25 mg 11/13/18 19:05 11/14/18 10:09 Cozaar - PO 25 mg DAILY [facility] Administration Metoprolol Tartrate 5 mg 11/12/18 18:55 Lopressor Injection - IVPUSH Q4H PRN SYSTOLIC BP >140 Nifedipine 90 mg 11/13/18 19:05 11/14/18 10:09 Procardia Xl - PO 90 mg DAILY [facility] Administration Nystatin 500,000 units 11/13/18 06:00 11/15/18 05:10 Nystatin Oral Suspension - PO Not Given Q6HPO [facility] Polymyxin/Trimethoprim Sulfate 1 drop 11/14/18 10:00 11/14/18 10:10 Polytrim Opthalmic Solution - OU 1 drop DAILY [facility] Administration Prednisone 60 mg 11/14/18 11:30 11/14/18 14:12 Deltasone - PO 60 mg DAILY [facility] Administration Home Medications Medication Instructions Recorded Acetaminophen [Tylenol Extra 500 mg PO PRN PRN 11/07/18 Strength] Aspirin [ASA -] 81 mg PO DAILY 11/07/18 Atorvastatin Ca [Lipitor] 40 mg PO HS 11/07/18 Carvedilol [Coreg -] 6.25 mg PO BID 11/07/18 Donepezil HCl [Aricept -] 10 mg PO DAILY 11/07/18 Losartan Potassium [Cozaar -] 25 mg PO DAILY 11/07/18 Memantine HCl [Namenda -] 10 mg PO BID 11/07/18 Nifedipine [Procardia Xl] 90 mg PO DAILY 11/07/18 Valacyclovir HCl [Valtrex -] 500 mg PO BID 11/07/18 Linagliptin [Tradjenta] 5 mg PO DAILY 11/08/18 Pantoprazole Sodium [Protonix] 40 mg PO DAILY 11/08/18 Sodium Polystyrene Sulfonate 30 gm PO DAILY 11/08/18 [Kayexalate -] ASSESSMENT AND PLAN: 68 year old female wit history of DM 2, ESRD on HD, CVA, recently diagnosed with zoster ophthalmicus. 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 Awaiting Ophthalmology consult. ID following - recommend 14 days total of IV acyclovir. Day 2 Prednisone for possible VZV vasculopathy. 2. Acute metabolic encephalopathy, unlikely VZV encephalopathy - resolved. 3. Acute/Subacute CVA - L frontal lobe and R degroot radiata infarcts on MRI. Echo - EF 65% Carotid Duplex - moderate plaque on the right common carotid 50-69% - no hemodynamically significant stenosis as per Vascular Sx. Continue Aspirin, Plavix, Lipitor. 4. HTN - continue Nifedipine, Coreg, Cozaar. 5. Hyponatremia/Hyperkalemia - resolved. 6. ESRD on HD (TTS) - Nephrology following. Anemia - normocytic, likely sec to ESRD. Will send Anemia work-up. 7. DM 2 - Hyperglycemia sec to Steroids. Levemir 10 units daily added to sliding scale Novolog. Home oral anti-hyperglycemics held. DVT Px - Heparin SQ
[2018-11-15] MEDS ORDERED: SODIUM CHLORIDE 250 ML IV PRN (12:49)
--- NOTE | 2018-11-15 13:37 | PN ---
Progress Note, Physician History of Present Illness: AWAKE IN BED ALERT, ORIENTED DENIES L PERIORBITAL PAIN NO EYE PAIN OR CHANGE IN VISUAL ACUITY AFEBRILE - Current Medication List Current Medications: Active Medications Aspirin (Asa -) 81 mg PO DAILY [facility] Last Admin: 11/14/18 10:09 Dose: 81 mg Atorvastatin Calcium (Lipitor -) 40 mg PO HS [facility] Last Admin: 11/14/18 21:35 Dose: 40 mg Carvedilol (Coreg -) 6.25 mg PO BID [facility] Last Admin: 11/14/18 21:35 Dose: 6.25 mg Clopidogrel Bisulfate (Plavix -) 75 mg PO DAILY [facility] Last Admin: 11/14/18 10:10 Dose: 75 mg Heparin Sodium (Porcine) (Heparin -) 5,000 unit SQ BID [facility] Last Admin: 11/15/18 12:52 Dose: Not Given Acyclovir 350 mg/ Dextrose 107 mls @ 107 mls/hr IVPB Q24H [facility] Last Admin: 11/14/18 21:34 Dose: 107 mls/hr Insulin Aspart (Novolog Vial Sliding Scale -) 1 vial SQ [facility]; Protocol Last Admin: 11/15/18 06:04 Dose: Not Given Insulin Detemir (Levemir Vial) 10 units SQ DAILY@0700 [facility] Losartan Potassium (Cozaar -) 25 mg PO DAILY [facility] Last Admin: 11/14/18 10:09 Dose: 25 mg Metoprolol Tartrate (Lopressor Injection -) 5 mg IVPUSH Q4H PRN PRN Reason: SYSTOLIC BP >140 Nifedipine (Procardia Xl -) 90 mg PO DAILY [facility] Last Admin: 11/14/18 10:09 Dose: 90 mg Nystatin (Nystatin Oral Suspension -) 500,000 units PO Q6HPO [facility] Last Admin: 11/15/18 12:53 Dose: Not Given Polymyxin/Trimethoprim Sulfate (Polytrim Opthalmic Solution -) 1 drop OU DAILY [facility] Last Admin: 11/14/18 10:10 Dose: 1 drop Prednisone (Deltasone -) 60 mg PO DAILY [facility] Last Admin: 11/14/18 14:12 Dose: 60 mg - Objective Vital Signs: Vital Signs Temperature 98.1 F 11/15/18 11:10 Pulse Rate 88 11/15/18 12:34 Respiratory Rate 20 11/15/18 12:34 Blood Pressure 140/70 11/15/18 12:34 O2 Sat by Pulse Oximetry (%) 97 11/14/18 20:06 Constitutional: Yes: No Distress Eyes: Yes: Other (ENCRUSTED LESIONS L PERIORBITAL AREA) Cardiovascular: Yes: Regular Rate and Rhythm, S1, S2 Respiratory: Yes: CTA Bilaterally Gastrointestinal: Yes: Normal Bowel Sounds, Soft. No: Tenderness Labs: CBC, BMP 11/15/18 07:10 11/15/18 07:10 INR, PTT INR 0.98 (0.83-1.09) 11/08/18 20:00 Assessment/Plan VZV L V1 DISTRIBUTION IMPROVED ? VZV VASCULOPATHY ESRD CONT ACV ADJUSTED FOR ESRD WILL NEED 14 D COURSE SHORT COURSE STEROIDS (PREDNISONE 1MG/KG QD X 5D) FOR POSSIBLE VZV VASCULOPATHY OPHTHO F/U PT FOR AMBULATION
[2018-11-15] MEDS: ASPIRIN 81 MG CHEWABLE TABLETS PO SCH (16:10)
[2018-11-15] MEDS: CLOPIDOGREL BISULFATE 75 MG TABLET (FP) PO SCH (16:10)
--- NOTE | 2018-11-15 16:12 | PN ---
Physical Exam: SUBJECTIVE: Patient seen and examined. She is feeling "good" today and is requesting to have the [place] vest removed. She is denying any eye pain or decreased vision. OBJECTIVE: Vital Signs Period Temp Pulse Resp BP Sys/Travis Pulse Ox Last 24 Hr 98.1 F-98.9 F 80-90 14-20 120-146/51-81 97 GENERAL: The patient is A/Ox3. Very pleasant and cooperative today. HEAD: Normal with no signs of trauma. EYES: PERRL, extraocular movements intact, sclera anicteric, left eyelid swelling ENT: Ears normal, nares patent, moist mucous membranes NECK: Trachea midline, full range of motion EXTREMITIES: warm, no edema. NEUROLOGICAL: Cranial nerves II through XII grossly intact. Normal speech, gait not observed. PSYCH: normal mood, normal affect SKIN: Warm, dry, normal turgor, herpetic lesions on left upper eyelid and just above the brow with no crossing of midline, with increased crusting and significantly decreased erythema Laboratory Results - last 24 hr 11/14/18 11/14/18 11/14/18 12:07 16:24 17:05 WBC RBC Hgb Hct MCV MCH MCHC RDW Plt Count MPV Absolute Neuts (auto) Neutrophils % Lymphocytes % Monocytes % Eosinophils % Basophils % Nucleated RBC % Sodium Potassium Chloride Carbon Dioxide Anion Gap BUN Creatinine Est GFR (CKD-EPI)AfAm Est GFR (CKD-EPI)NonAf POC Glucometer 248 285 Random Glucose Calcium Iron 24 L TIBC 94 L Iron Saturation 25 Unsaturated IBC 70 L Total Bilirubin AST ALT Alkaline Phosphatase Total Protein Albumin Vitamin B12 2801 H Serum Folate 11/14/18 11/14/18 11/14/18 21:31 21:33 22:52 WBC RBC Hgb Hct MCV MCH MCHC RDW Plt Count MPV Absolute Neuts (auto) Neutrophils % Lymphocytes % Monocytes % Eosinophils % Basophils % Nucleated RBC % Sodium Potassium Chloride Carbon Dioxide Anion Gap BUN Creatinine Est GFR (CKD-EPI)AfAm Est GFR (CKD-EPI)NonAf POC Glucometer 514 496 492 Random Glucose Calcium Iron TIBC Iron Saturation Unsaturated IBC Total Bilirubin AST ALT Alkaline Phosphatase Total Protein Albumin Vitamin B12 Serum Folate 11/15/18 11/15/18 11/15/18 00:12 00:20 03:28 WBC RBC Hgb Hct MCV MCH MCHC RDW Plt Count MPV Absolute Neuts (auto) Neutrophils % Lymphocytes % Monocytes % Eosinophils % Basophils % Nucleated RBC % Sodium 136 Potassium 4.0 Chloride 93 L Carbon Dioxide 31 Anion Gap 12 BUN 60.7 H Creatinine 6.7 H Est GFR (CKD-EPI)AfAm 6.82 Est GFR (CKD-EPI)NonAf 5.88 POC Glucometer 493 376 Random Glucose 520 H* Calcium 7.9 L Iron 25 L TIBC Iron Saturation Unsaturated IBC Total Bilirubin AST ALT Alkaline Phosphatase Total Protein Albumin 2.9 L Vitamin B12 Serum Folate 11/15/18 11/15/18 11/15/18 05:07 07:10 07:10 WBC 10.4 H RBC 3.07 L Hgb 9.6 L Hct 29.0 L MCV 94.5 MCH 31.3 MCHC 33.1 RDW 13.5 Plt Count 238 D MPV 8.9 Absolute Neuts (auto) 8.9 H Neutrophils % 85.8 H D Lymphocytes % 9.6 D Monocytes % 4.5 Eosinophils % 0.0 D Basophils % 0.1 Nucleated RBC % 0 Sodium 134 L Potassium 4.5 Chloride 93 L Carbon Dioxide 31 Anion Gap 10 BUN 73.8 H Creatinine 7.2 H Est GFR (CKD-EPI)AfAm 6.25 Est GFR (CKD-EPI)NonAf 5.39 POC Glucometer 331 Random Glucose 296 H Calcium 8.4 L Iron TIBC Iron Saturation Unsaturated IBC Total Bilirubin 1.0 AST 15 ALT 15 Alkaline Phosphatase 60 Total Protein 7.6 Albumin 2.8 L Vitamin B12 Serum Folate Active Medications Generic Name Dose Route Start Last Admin Trade Name Freq PRN Reason Stop Dose Admin Aspirin 81 mg 11/13/18 10:00 11/14/18 10:09 Asa - PO 81 mg DAILY [facility] Administration Atorvastatin Calcium 40 mg 11/13/18 19:00 11/14/18 21:35 Lipitor - PO 40 mg HS NAJMA Administration Carvedilol 6.25 mg 11/13/18 19:03 11/14/18 21:35 Coreg - PO 6.25 mg BID NAJ[facility] Administration Clopidogrel Bisulfate 75 mg 11/13/18 10:00 11/14/18 10:10 Plavix - PO 75 mg DAILY [facility] Administration Heparin Sodium (Porcine) 5,000 unit 11/15/18 10:00 11/15/18 12:52 Heparin - SQ Not Given BID [facility] Acyclovir 350 mg/ Dextrose 107 mls @ 107 mls/hr 11/12/18 20:00 11/14/18 21:34 IVPB 107 mls/hr Q24H [facility] Administration Insulin Aspart 1 vial 11/12/18 22:00 11/15/18 06:04 Novolog Vial Sliding Scale - SQ Not Given ACHS [facility] Protocol Insulin Detemir 10 units 11/15/18 09:00 Levemir Vial SQ DAILY@0700 [facility] Losartan Potassium 25 mg 11/13/18 19:05 11/14/18 10:09 Cozaar - PO 25 mg DAILY [facility] Administration Metoprolol Tartrate 5 mg 11/12/18 18:55 Lopressor Injection - IVPUSH Q4H PRN SYSTOLIC BP >140 Nifedipine 90 mg 11/13/18 19:05 11/14/18 10:09 Procardia Xl - PO 90 mg DAILY [facility] Administration Nystatin 500,000 units 11/13/18 06:00 11/15/18 12:53 Nystatin Oral Suspension - PO Not Given Q6HPO [facility] Polymyxin/Trimethoprim Sulfate 1 drop 11/14/18 10:00 11/14/18 10:10 Polytrim Opthalmic Solution - OU 1 drop DAILY [facility] Administration Prednisone 60 mg 11/14/18 11:30 11/14/18 14:12 Deltasone - PO 60 mg DAILY [facility] Administration ASSESSMENT/PLAN: Ms. Murphy is a 68yo female with HTN, DM type 2, HLD, CVA, ESRD on dialysis (T , , ) who presented on 11/07/18 with AMS, weakness, and vesicular rash on left eyelid. 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 Right arm tremor is no longer present on exam. 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 Pt is on day 8 of acyclovir and lesions are resolving. Monday pt was uremic prior to dialysis BUN 74.8 has decreased to 37.1. MRI showed acute lacunar infarcts right degroot radiata and left frontal lobe per radiology report. CT showed right periventricular chronic lacunar infarct. Carotid doppler showed right common carotid bifurcation 50-69% stenosis. -vascular consult with Dr. Norton ordered. -occasional PVCs on tele -lipid profile HDL 39, LDL 77, total 139, triglycerides 136 -continue ASA -continue Plavix -atorvastatin 40mg -PT for generalized weakness -Speech recommended regular diet so patient would eat. 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 Vesicular rash on upper lid and above brow not crossing midline. Significantly improved. -continue acyclovir -stop Polytrim #ESRD on dialysis BUN ranges 20s-40s, today 73 -continue dialysis -nephro Dr. Campoverde following #DM type 2 BG 200s average, after initiating prednisone BG increased to 400s -continue SSI -add levemir 10U daily -BGM #HTN stable -continue to monitor BP -continue losartan -continue nifedipine -continue carvedilol -Lopressor push PRN #HLD -lipid profile HDL 39, LDL 77, total 139, triglycerides 136 -atorvastatin decreased back to home dose 40mg after speaking with neuro Dr. Johnson because LDL is 77 FEN -no standing fluids -monitor BUN, electrolytes -Na controlled/sugar controlled diet DVT Ppe Heparin Dispo Tunnel cath or PICC to be placed tomorrow for pt to receive acyclovir. Pt then ready for discharge to SNF. Visit type - Emergency Visit Emergency Visit: Yes ED Registration Date: 11/07/18 Care time: The patient presented to the Emergency Department on the above date and was hospitalized for further evaluation of their emergent condition. - New Patient This patient is new to me today: No - Critical Care Critical Care patient: No - Discharge Referral Referred to [facility] Med P.C.: No ATTENDING PHYSICIAN STATEMENT I saw and evaluated the patient. I reviewed the resident's note and discussed the case with the resident. I agree with the resident's findings and plan as documented. SUBJECTIVE: OBJECTIVE: ASSESSMENT AND PLAN:
[2018-11-15] MEDS: CARVEDILOL 6.25 MG TABLET (FP) PO SCH ×2 (16:28→22:29)
[2018-11-15] MEDS: INSULIN (LEVEMIR) 100 UNITS/ML UNITS SQ SCH (17:24)
[2018-11-15] MEDS: NIFEdipine E.R. 90 MG TABLET (FP) PO SCH (17:25)
[2018-11-15] MEDS: LOSARTAN POTASSIUM 25 MG TABLET PO SCH (17:25)
[2018-11-15] MEDS: predniSONE 20 MG TABLET (UD) PO SCH (17:25)
[2018-11-15] MEDS: POLYMYXIN B SULFATE/TMP 10 ML OPHTHALMIC SOLUTION OU SCH (17:26)
[2018-11-15] MEDS: ACYCLOVIR INJECTION 350 MG in DEXTROSE 5%-WATER - 100 ML IVPB SCH (20:55)
[2018-11-15] MEDS: ATORVASTATIN CA 40 MG TABLET (FP) PO SCH (22:29)
--- NOTE | 2018-11-15 22:53 | PN ---
Progress Note (short form) - Note Progress Note: seen at bedside with daughter present seen while on dialysis treatment is unventful so far Current Medications Aspirin (Asa -) 81 mg PO DAILY [facility] Last Admin: 11/15/18 16:10 Dose: Not Given Atorvastatin Calcium (Lipitor -) 40 mg PO HS [facility] Last Admin: 11/15/18 22:29 Dose: 40 mg Carvedilol (Coreg -) 6.25 mg PO BID [facility] Last Admin: 11/15/18 22:29 Dose: 6.25 mg Clopidogrel Bisulfate (Plavix -) 75 mg PO DAILY [facility] Last Admin: 11/15/18 16:10 Dose: Not Given Heparin Sodium (Porcine) (Heparin -) 5,000 unit SQ BID [facility] Last Admin: 11/15/18 12:52 Dose: Not Given Acyclovir 350 mg/ Dextrose 107 mls @ 107 mls/hr IVPB Q24H [facility] Last Admin: 11/15/18 20:55 Dose: 107 mls/hr Insulin Aspart (Novolog Vial Sliding Scale -) 1 vial SQ [facility]; Protocol Last Admin: 11/15/18 22:29 Dose: 10 units Insulin Detemir (Levemir Vial) 10 units SQ DAILY@0700 [facility] Last Admin: 11/15/18 17:24 Dose: 10 unit Losartan Potassium (Cozaar -) 25 mg PO DAILY [facility] Last Admin: 11/15/18 17:25 Dose: 25 mg Metoprolol Tartrate (Lopressor Injection -) 5 mg IVPUSH Q4H PRN PRN Reason: SYSTOLIC BP >140 Nifedipine (Procardia Xl -) 90 mg PO DAILY [facility] Last Admin: 11/15/18 17:25 Dose: 90 mg Nystatin (Nystatin Oral Suspension -) 500,000 units PO Q6HPO [facility] Last Admin: 11/15/18 17:26 Dose: 500,000 units Polymyxin/Trimethoprim Sulfate (Polytrim Opthalmic Solution -) 1 drop OU DAILY [facility] Last Admin: 11/15/18 17:26 Dose: 1 drop Prednisone (Deltasone -) 60 mg PO DAILY [facility] Last Admin: 11/15/18 17:25 Dose: 60 mg Last Vital Signs Temp Pulse Resp BP Pulse Ox 98.2 F 90 20 138/59 L 97 11/15/18 14:45 11/15/18 15:38 11/15/18 14:50 11/15/18 15:38 11/15/18 21:00 lungs clear heart reg abd soft nontender ext no edema CBC, BMP 11/15/18 07:10 11/15/18 07:10 IMP ESRD on HD CVA Plan next HD on Sat
[2018-11-15] MEDS ORDERED: Insulin (LOG) Aspart 100 UNITS/ML VIAL SQ ONE (23:00)
[2018-11-16] MEDS: NYSTATIN 500,000 UNITS/5 ML SUSPENSION PO SCH ×2 (06:17→13:56)
[2018-11-16] MEDS: INSULIN (LEVEMIR) 100 UNITS/ML UNITS SQ SCH (06:17)
[2018-11-16] MEDS: INSULIN SLIDING SCALE (NOVOLOG) 1 VIAL SQ SCH ×2 (06:18→13:58)
[2018-11-16 06:36] VITALS: BP 133/67; PULSE 76; TEMP 98.3
[2018-11-16] MEDS ORDERED: INSULIN (LEVEMIR) 100 UNITS/ML UNITS SQ ONE (07:42)
--- NOTE | 2018-11-16 09:08 | PN ---
Progress Note (short form) - Note Progress Note: Neurology CHIEF COMPLAINT: weakness HISTORY OF PRESENT ILLNESS: 68 y/o F, pmh of htn, dm type 2, hld, cva, esrd on dialysis via left arm fistula presents to the ED c/o of eye infection and weakness of one day duration associated with nausea, nbnb vomiting and nonbloody diarrhea. In the ED , pt was hypertensive at 218/103 which was controlled after administration of losartan and nifedipine. Pt is a poor historian and has multiple admissions for AMS and confusion. In the past dr. Correia has suggested hypertensive encephalopathy which could be the cause of pt's worsening cognition. apid response note from yesterday reviewed, discussed with resident over the phone. Mental status waxes and wanes. Can be alert at times but other times somnolent. Is on Acylclovir, his a.m. somnolent butquickly arousable and alert. Can tell me she's at [facility] as well as month is October and year is 2018. MRI brain with R degroot radiata and L fronal infarcts, no comment as to acute vs subacute vs chronic. Remains on ASA, plavix along with statin. carotid Dopplers completed and reviewed, moderate plaques 50-69% stenosis of the right common carotid. Discussed with ID specialist and he was considering starting steroids as he reported seeing cases of herpes ophthalmicus with subsequent vasculopathy , no objection to steroids, patient put on 5 day course . this a.m., cooperative, aware that she is in the hospital, can tell me the date as well as the name of the President. mental status appears stable Active Medications Aspirin (Asa -) 81 mg PO DAILY [facility] Last Admin: 11/15/18 16:10 Dose: Not Given Atorvastatin Calcium (Lipitor -) 40 mg PO HS [facility] Last Admin: 11/15/18 22:29 Dose: 40 mg Carvedilol (Coreg -) 6.25 mg PO BID [facility] Last Admin: 11/15/18 22:29 Dose: 6.25 mg Clopidogrel Bisulfate (Plavix -) 75 mg PO DAILY [facility] Last Admin: 11/15/18 16:10 Dose: Not Given Heparin Sodium (Porcine) (Heparin -) 5,000 unit SQ BID [facility] Last Admin: 11/15/18 12:52 Dose: Not Given Acyclovir 350 mg/ Dextrose 107 mls @ 107 mls/hr IVPB Q24H [facility] Last Admin: 11/15/18 20:55 Dose: 107 mls/hr Insulin Aspart (Novolog Vial Sliding Scale -) 1 vial SQ ACHS [facility]; Protocol Last Admin: 11/16/18 06:18 Dose: 8 units Insulin Detemir (Levemir Vial) 10 units SQ DAILY@0700 [facility] Last Admin: 11/16/18 06:17 Dose: 10 unit Losartan Potassium (Cozaar -) 25 mg PO DAILY [facility] Last Admin: 11/15/18 17:25 Dose: 25 mg Metoprolol Tartrate (Lopressor Injection -) 5 mg IVPUSH Q4H PRN PRN Reason: SYSTOLIC BP >140 Nifedipine (Procardia Xl -) 90 mg PO DAILY [facility] Last Admin: 11/15/18 17:25 Dose: 90 mg Nystatin (Nystatin Oral Suspension -) 500,000 units PO Q6HPO [facility] Last Admin: 11/16/18 06:17 Dose: Not Given Polymyxin/Trimethoprim Sulfate (Polytrim Opthalmic Solution -) 1 drop OU DAILY [facility] Last Admin: 11/15/18 17:26 Dose: 1 drop Prednisone (Deltasone -) 60 mg PO DAILY [facility] Last Admin: 11/15/18 17:25 Dose: 60 mg PHYSICAL EXAMINATION Vital Signs Period Temp Pulse Resp BP Sys/Travis Pulse Ox Last 24 Hr 98.1 F-98.6 F 76-90 14-20 124-146/59-81 97 GENERAL: Awake, alert EYES: Left eye discharge- dry and crusted, redness, mild superficial swelling and difficult to keep open. Pupils equal, round and reactive to light, extraocular movements intact, EARS, NOSE, THROAT: Vesicular rash on the left forehead present. Oropharynx clear without exudates. Moist mucous membranes. NECK: Normal range of motion, supple without lymphadenopathy, JVD, or masses. LUNGS: Breath sounds equal, clear to auscultation bilaterally. No wheezes, and no crackles. No accessory muscle use. HEART: Regular rate and rhythm, normal S1 and S2 without murmur, rub or gallop. ABDOMEN: Soft, nontender, not distended, normoactive bowel sounds, no guarding, no rebound, no masses. No hepatomegaly or splenomegaly. MUSCULOSKELETAL: No CVA tenderness. UPPER EXTREMITIES: 2+ pulses, warm, well-perfused. No cyanosis. No peripheral edema. LOWER EXTREMITIES: 2+ pulses, warm, well-perfused. No peripheral edema. NEUROLOGICAL: AWake, alert, not participating in confrontation testing but moves extremities grossly, sensory intact PSYCHIATRIC: Cooperative. Good eye contact. Appropriate mood and affect. CBCD WBC 10.4 K/mm3 (4.0-10.0) H 11/15/18 07:10 RBC 3.07 M/mm3 (3.60-5.2) L 11/15/18 07:10 Hgb 9.6 GM/dL (10.7-15.3) L 11/15/18 07:10 Hct 29.0 % (32.4-45.2) L 11/15/18 07:10 MCV 94.5 fl (80-96) 11/15/18 07:10 MCHC 33.1 g/dl (32.0-36.0) 11/15/18 07:10 RDW 13.5 % (11.6-15.6) 11/15/18 07:10 Plt Count 238 K/MM3 (134-434) D 11/15/18 07:10 MPV 8.9 fl (7.5-11.1) 11/15/18 07:10 CMP Sodium 134 mmol/L (136-145) L 11/15/18 07:10 Potassium 4.5 mmol/L (3.5-5.1) 11/15/18 07:10 Chloride 93 mmol/L (98-107) L 11/15/18 07:10 Carbon Dioxide 31 mmol/L (21-32) 11/15/18 07:10 Anion Gap 10 MMOL/L (8-16) 11/15/18 07:10 BUN 73.8 mg/dL (7-18) H 11/15/18 07:10 Creatinine 7.2 mg/dL (0.55-1.3) H 11/15/18 07:10 Random Glucose 451 mg/dL (74-106) H* 11/15/18 22:50 Calcium 8.4 mg/dL (8.5-10.1) L 11/15/18 07:10 Total Bilirubin 1.0 mg/dL (0.2-1) 11/15/18 07:10 AST 15 U/L (15-37) 11/15/18 07:10 ALT 15 U/L (13-61) 11/15/18 07:10 Alkaline Phosphatase 60 U/L (45-117) 11/15/18 07:10 Total Protein 7.6 g/dl (6.4-8.2) 11/15/18 07:10 Albumin 2.8 g/dl (3.4-5.0) L 11/15/18 07:10 CARDIAC ENZYMES Creatine Kinase 58 U/L (26-192) 11/07/18 19:33 Troponin I < 0.02 ng/ml (0.00-0.05) 11/07/18 19:33 ASSESSMENT/PLAN: 68 y/o F, pmh of htn, dm type 2, hld, cva, esrd on dialysis via left arm fistula presents to the ED c/o of eye infection and weakness of one day duration associated with nausea, nbnb vomiting and nonbloody diarrhea. In the ED , pt was hypertensive at 218/103 which was controlled after administration of losartan and nifedipine. Pt is a poor historian and has multiple admissions for AMS and confusion. In the past dr. Correia has suggested hypertensive encephalopathy which could be the cause of pt's worsening cognition. apid response note from yesterday reviewed, discussed with resident over the phone. Mental status waxes and wanes. Can be alert at times but other times somnolent. Is on Acylclovir, his a.m. somnolent butquickly arousable and alert. Can tell me she's at [facility] as well as month is October and year is 2019. MRI brain with R degroot radiata and L fronal infarcts, no comment as to acute vs subacute vs chronic. Remains on ASA, plavix along with statin. carotid Dopplers completed and reviewed, moderate plaques 50-69% stenosis of the right common carotid. Discussed with ID specialist and he was considering starting steroids as he reported seeing cases of herpes ophthalmicus with subsequent vasculopathy , no objection to steroids, patient put on 5 day course . this a.m., cooperative, aware that she is in the hospital, can tell me the date as well as the name of the President. mental status appears stable. Continue hemodialysis, optimize renal status. monitor glucose, maintain euglycemic range. Continue infectious mgmt.
[2018-11-16] MEDS: CARVEDILOL 6.25 MG TABLET (FP) PO SCH (10:30)
--- NOTE | 2018-11-16 11:07 | PN ---
Teaching Attending Note Name of Resident: Trina Mata ATTENDING PHYSICIAN STATEMENT I saw and evaluated the patient. I reviewed the resident's note and discussed the case with the resident. I agree with the resident's findings and plan as documented. SUBJECTIVE: Feels much improved. Denies visual disturbance, headache, limb numbness/weakness/tingling. No fever overnight. OBJECTIVE: Fever resolved. Afebrile, Hemodynamically Stable. Last Vital Signs Temp Pulse Resp BP Pulse Ox 98.3 F 76 18 133/67 97 11/16/18 06:00 11/16/18 06:00 11/16/18 06:00 11/16/18 06:00 11/15/18 21:00 HEENT - L loreta-orbital crusted vesicular rash. No conjunctivitis. NORAH. Heart - S1, S2, SM Lungs - clear to auscultation. Abdomen - Soft, non-tender. Bowel Sounds normal. Extremities - no edema, no calf tenderness. Mild venous stasis skin changes. Neuro - AAO x 3. Moving all 4 extremities. Laboratory Results - last 24 hr 11/15/18 11/15/18 11/15/18 15:19 22:26 22:50 POC Glucometer 255 467 Random Glucose 451 H* 11/15/18 11/16/18 11/16/18 23:55 01:41 05:35 POC Glucometer 416 301 329 Random Glucose Current Medications Generic Name Dose Route Start Last Admin Trade Name Freq PRN Reason Stop Dose Admin Aspirin 81 mg 11/13/18 10:00 11/15/18 16:10 Asa - PO Not Given DAILY [facility] Atorvastatin Calcium 40 mg 11/13/18 19:00 11/15/18 22:29 Lipitor - PO 40 mg HS [facility] Administration Carvedilol 6.25 mg 11/13/18 19:03 11/15/18 22:29 Coreg - PO 6.25 mg BID [facility] Administration Clopidogrel Bisulfate 75 mg 11/13/18 10:00 11/15/18 16:10 Plavix - PO Not Given DAILY [facility] Heparin Sodium (Porcine) 5,000 unit 11/15/18 10:00 11/15/18 12:52 Heparin - SQ Not Given BID [facility] Acyclovir 350 mg/ Dextrose 107 mls @ 107 mls/hr 11/12/18 20:00 11/15/18 20:55 IVPB 107 mls/hr Q24H [facility] Administration Insulin Aspart 1 vial 11/12/18 22:00 11/16/18 06:18 Novolog Vial Sliding Scale - SQ 8 units ACHS [facility] Administration Protocol Insulin Detemir 10 units 11/15/18 09:00 11/16/18 06:17 Levemir Vial SQ 10 unit DAILY@0700 [facility] Administration Losartan Potassium 25 mg 11/13/18 19:05 11/15/18 17:25 Cozaar - PO 25 mg DAILY [facility] Administration Metoprolol Tartrate 5 mg 11/12/18 18:55 Lopressor Injection - IVPUSH Q4H PRN SYSTOLIC BP >140 Nifedipine 90 mg 11/13/18 19:05 11/15/18 17:25 Procardia Xl - PO 90 mg DAILY [facility] Administration Nystatin 500,000 units 11/13/18 06:00 11/16/18 06:17 Nystatin Oral Suspension - PO Not Given Q6HPO [facility] Polymyxin/Trimethoprim Sulfate 1 drop 11/14/18 10:00 11/15/18 17:26 Polytrim Opthalmic Solution - OU 1 drop DAILY [facility] Administration Prednisone 60 mg 11/14/18 11:30 11/15/18 17:25 Deltasone - PO 60 mg DAILY [facility] Administration Discharge Medications Medication Instructions Recorded Acetaminophen [Tylenol Extra 500 mg PO PRN PRN 11/07/18 Strength] Aspirin [ASA -] 81 mg PO DAILY 11/07/18 Atorvastatin Ca [Lipitor] 40 mg PO HS 11/07/18 Carvedilol [Coreg -] 6.25 mg PO BID 11/07/18 Donepezil HCl [Aricept -] 10 mg PO DAILY 11/07/18 Losartan Potassium [Cozaar -] 25 mg PO DAILY 11/07/18 Memantine HCl [Namenda -] 10 mg PO BID 11/07/18 Nifedipine [Procardia Xl] 90 mg PO DAILY 11/07/18 Linagliptin [Tradjenta] 5 mg PO DAILY 11/08/18 Pantoprazole Sodium [Protonix] 40 mg PO DAILY 11/08/18 Sodium Polystyrene Sulfonate 30 gm PO DAILY 11/08/18 [Kayexalate -] Acyclovir Injection [Zovirax 350 mg IVPB DAILY 5 Days #5 vial 11/15/18 Injection -] Clopidogrel Bisulfate [Plavix -] 75 mg PO DAILY tablet 11/15/18 Insulin (Levemir) [Levemir Vial] 10 units SQ DAILY@0700 units 11/15/18 Prednisone [Deltasone] 60 mg PO DAILY 3 Days #9 tablet 11/15/18 ASSESSMENT AND PLAN: 68 year old female wit history of DM 2, ESRD on HD, CVA, recently diagnosed with zoster ophthalmicus. 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 ID following - recommend 14 days total of IV acyclovir. Day 3 Prednisone for possible VZV vasculopathy - to complete 5 days. Needs Ophthalmology eval on discharge. 2. Acute metabolic encephalopathy, unlikely VZV encephalopathy - resolved. 3. Acute/Subacute CVA - L frontal lobe and R degroot radiata infarcts on MRI. Echo - EF 65% Carotid Duplex - moderate plaque on the right common carotid 50-69% - no hemodynamically significant stenosis as per Vascular Sx. Continue Aspirin, Plavix, Lipitor. 4. HTN - continue Nifedipine, Coreg, Cozaar. 5. Hyponatremia/Hyperkalemia - resolved. 6. ESRD on HD (TTS) - Nephrology following. Anemia - normocytic, likely sec to ESRD. Epo as per Nephrology. 7. DM 2 - Hyperglycemia sec to Steroids. Levemir 15 units added to sliding scale Novolog. Home oral anti-hyperglycemics to be resmed on discharge along with sliding scale before meals and before bedtime. DVT Px - Heparin SQ Dispo - medically stable for transfer to SNF.
[2018-11-16] MEDS ORDERED: PT OWN MED DRAWER 7, Y5N ONE (13:47)
[2018-11-16] MEDS: LOSARTAN POTASSIUM 25 MG TABLET PO SCH (13:56)
[2018-11-16] MEDS: NIFEdipine E.R. 90 MG TABLET (FP) PO SCH (13:57)
[2018-11-16] MEDS: predniSONE 20 MG TABLET (UD) PO SCH (13:58)
[2018-11-16] MEDS: POLYMYXIN B SULFATE/TMP 10 ML OPHTHALMIC SOLUTION OU SCH (14:03)
--- NOTE | 2018-11-16 14:28 | PN ---
Progress Note (short form) - Note Progress Note: seen at bedside with daughter present seen while on dialysis treatment is unventful so far Active Medications Aspirin (Asa -) 81 mg PO DAILY [facility] Last Admin: 11/15/18 16:10 Dose: Not Given Atorvastatin Calcium (Lipitor -) 40 mg PO HS [facility] Last Admin: 11/15/18 22:29 Dose: 40 mg Carvedilol (Coreg -) 6.25 mg PO BID [facility] Last Admin: 11/16/18 10:30 Dose: Not Given Clopidogrel Bisulfate (Plavix -) 75 mg PO DAILY [facility] Last Admin: 11/15/18 16:10 Dose: Not Given Heparin Sodium (Porcine) (Heparin -) 5,000 unit SQ BID [facility] Last Admin: 11/15/18 12:52 Dose: Not Given Acyclovir 350 mg/ Dextrose 107 mls @ 107 mls/hr IVPB Q24H [facility] Last Admin: 11/15/18 20:55 Dose: 107 mls/hr Insulin Aspart (Novolog Vial Sliding Scale -) 1 vial SQ [facility]; Protocol Last Admin: 11/16/18 13:58 Dose: 6 units Insulin Detemir (Levemir Vial) 10 units SQ DAILY@0700 [facility] Last Admin: 11/16/18 06:17 Dose: 10 unit Losartan Potassium (Cozaar -) 25 mg PO DAILY [facility] Last Admin: 11/16/18 13:56 Dose: 25 mg Metoprolol Tartrate (Lopressor Injection -) 5 mg IVPUSH Q4H PRN PRN Reason: SYSTOLIC BP >140 Nifedipine (Procardia Xl -) 90 mg PO DAILY [facility] Last Admin: 11/16/18 13:57 Dose: 90 mg Nystatin (Nystatin Oral Suspension -) 500,000 units PO Q6HPO [facility] Last Admin: 11/16/18 13:56 Dose: Not Given Polymyxin/Trimethoprim Sulfate (Polytrim Opthalmic Solution -) 1 drop OU DAILY [facility] Last Admin: 11/16/18 14:03 Dose: 1 drop Prednisone (Deltasone -) 60 mg PO DAILY [facility] Last Admin: 11/16/18 13:58 Dose: 60 mg Last Vital Signs Temp Pulse Resp BP Pulse Ox 98.3 F 76 18 133/67 97 11/16/18 06:00 11/16/18 06:00 11/16/18 06:00 11/16/18 06:00 11/15/18 21:00 no new c/o lungs clear heart reg abd soft nontender ext no edema CBC, BMP 11/15/18 07:10 11/15/18 07:10 IMP ESRD on HD CVA stable Plan next HD on Sat
== END 2018-11-16 14:52 | DRG 64 ==
LOC: JER 18:47 → JERBED 22:16 → J6S 11-08 18:56 → J4S 11-12 18:51
PROVIDERS: ADMIT Internal Medicine
PROC: 5A1D70Z Performance of Urinary Filtration, Intermittent, Less than 6 Hours Per Day (ICD-10-PCS; 2018-11-15)
PROC: 02HV33Z Insertion of Infusion Device into Superior Vena Cava, Percutaneous Approach (ICD-10-PCS; principal; 2018-11-16)
DX: I63.9 Cerebral infarction, unspecified (principal); N18.6 End stage renal disease; G93.41 Metabolic encephalopathy; B02.30 Zoster ocular disease, unspecified; I67.4 Hypertensive encephalopathy; E87.1 Hypo-osmolality and hyponatremia; I12.0 Hypertensive chronic kidney disease with stage 5 chronic kidney disease or end stage renal disease; E87.5 Hyperkalemia; T42.4X5A Adverse effect of benzodiazepines, initial encounter; I16.0 Hypertensive urgency; E11.22 Type 2 diabetes mellitus with diabetic chronic kidney disease; E78.5 Hyperlipidemia, unspecified; I25.10 Atherosclerotic heart disease of native coronary artery without angina pectoris; E11.65 Type 2 diabetes mellitus with hyperglycemia; R19.7 Diarrhea, unspecified; Z99.2 Dependence on renal dialysis
CPT/HCPCS: 36415; 36558; 36600; 70450-TC; 70480-TC; 70551-TC; 71045-TC-FY; 77001-TC-FY; 80048; 80053; 80061; 82040; 82140; 82550; 82607; 82746; 82803; 82947; 82962; 83540; 83550; 83605; 83721; 83735; 84100; 84439; 84443; 84484; 85025; 85027; 85610; 86803; 87040; 87340; 93005; 93010; 93306-TC; 93880-TC; 97116-GP; 97161-GP; 99281-25; 99285-25; C1751; J0885; J1644; J7030

== ENCOUNTER 2018-11-19 13:31 | Emergency (ER) | payer OTHER ==
[2018-11-19 13:43] VITALS: BP 131/65; PULSE 66; TEMP 97.2; BMI 27.4
--- NOTE | 2018-11-19 13:49 | PDOC ---
History of Present Illness - General Chief Complaint: Injury Stated Complaint: FALL Time Seen by Provider: 11/19/18 13:47 History Source: Patient Exam Limitations: Clinical Condition - History of Present Illness Initial Comments: Marissa Murphy is a 68 yo F from [facility] w a pmh of HTN, HLD, NIDDM, dementia , CVA w residual left sided weakness, ESRD (T/R/Sat), anemia, CAD, angina, b/l cataracts, GERD and seizures who presents to the [facility] ER via EMS after she fell down and hit her head when the son was assisting her to get up in the [facility]. Per Chart patient is taking aspirin and plavix. Patient states she was recently in this hospital and diagnosed with a CVA. Son who is with patient at bedside states it is his fault because patient always has weak legs and is not steady on her feet. The son states that as the patient was trying to get up her legs went out and she fell hitting her right forehead and left leg. The patient denied feeling abnormal in any capacity but the [place] [employer] floor supervisor advised to come to the ER to be evaluated. Here in the ER the patient has a large swollen bruise on her right forehead. Denies new weakness, fevers, chills, numbness, tingling, chest pain, SOB, difficulty breathing, or back pain. Allergies: NKDA PCP: Loren Lutz Renal: Julienne Corrales PSH: Appendectomy, renal transplant- 1st transplant failed after 5 years, still in the body. 2nd attempt- donor kidney failed and was never transplanted, CAD s/ p Cath Social Hx: [facility] resident. Denies cigarette, alcohol, or other substance usage Past History - Past Medical History Allergies/Adverse Reactions: Allergies Allergy/AdvReac Type Severity Reaction Status Date / Time codeine Allergy Verified 11/07/18 18:49 promethazine HCl Allergy Verified 11/07/18 18:49 [From Phenergan] Home Medications: Ambulatory Orders Acetaminophen [Tylenol Extra Strength] 500 mg PO PRN PRN 11/07/18 Aspirin [ASA -] 81 mg PO DAILY 11/07/18 Atorvastatin Ca [Lipitor] 40 mg PO HS 11/07/18 Carvedilol [Coreg -] 6.25 mg PO BID 11/07/18 Donepezil HCl [Aricept -] 10 mg PO DAILY 11/07/18 Losartan Potassium [Cozaar -] 25 mg PO DAILY 11/07/18 Memantine HCl [Namenda -] 10 mg PO BID 11/07/18 Nifedipine [Procardia Xl] 90 mg PO DAILY 11/07/18 Linagliptin [Tradjenta] 5 mg PO DAILY 11/08/18 Pantoprazole Sodium [Protonix] 40 mg PO DAILY 11/08/18 Sodium Polystyrene Sulfonate [Kayexalate -] 30 gm PO DAILY 11/08/18 Clopidogrel Bisulfate [Plavix -] 75 mg PO DAILY tablet 11/15/18 Acyclovir Injection [Zovirax Injection -] 350 mg IV DAILY #5 vial 11/16/18 predniSONE [Deltasone -] 60 mg PO DAILY 2 Days #6 tablet 11/16/18 Anemia: Yes Asthma: No Cancer: No Cardiac Disorders: Yes (angina) CVA: Yes (L sided weakness) COPD: No CHF: No DVT: No Dementia: Yes (AMS) Diabetes: Yes Dialysis: Yes () GI Disorders: Yes (GERD) Disorders: No HTN: Yes Hypercholesterolemia: Yes Liver Disease: No Seizures: Yes Thyroid Disease: No - Surgical History Abdominal Surgery: Yes Appendectomy: Yes Neurologic Surgery: No - Immunization History Immunization Up to Date: Yes - Suicide/Smoking/Psychosocial Hx Smoking Status: No Smoking History: Never smoked Have you smoked in the past 12 months: No Number of Cigarettes Smoked Daily: 0 Information on smoking cessation initiated: No Hx Alcohol Use: No Drug/Substance Use Hx: No Substance Use Type: None Hx Substance Use Treatment: No Review of Systems - Review of Systems Able to Perform ROS?: Yes Comments:: CONSTITUTIONAL: Absent: fever, chills, diaphoresis, generalized weakness, malaise, loss of appetite HEENT: Present: eye pain Absent: rhinorrhea, nasal congestion, throat pain, throat swelling, difficulty swallowing, mouth swelling, ear pain, visual Changes CARDIOVASCULAR: Absent: chest pain, syncope, palpitations, irregular heart rate, lightheadedness , peripheral edema RESPIRATORY: Absent: cough, shortness of breath, dyspnea with exertion, orthopnea, wheezing, stridor, hemoptysis GASTROINTESTINAL: Absent: abdominal pain, abdominal distension, nausea, vomiting, diarrhea, constipation, melena, hematochezia GENITOURINARY: Absent: dysuria, frequency, urgency, hesitancy, hematuria, flank pain, genital pain MUSCULOSKELETAL: Absent: myalgia, arthralgia, joint swelling SKIN: Present: Bruise, rash Absent: itching, pallor HEMATOLOGIC/IMMUNOLOGIC: Present: Easy bleeding, easy bruising Absent: lymphadenopathy, frequent infections ENDOCRINE: Absent: unexplained weight gain, unexplained weight loss, heat intolerance, cold intolerance NEUROLOGIC: Present: unsteady gait Absent: headache, focal weakness or paresthesias, dizziness, seizure, mental status changes, bladder or bowel incontinence PSYCHIATRIC: Absent: anxiety, depression, suicidal or homicidal ideation, hallucinations. *Physical Exam - Vital Signs Last Vital Signs Temp Pulse Resp BP Pulse Ox 97.2 F L 66 18 131/65 99 11/19/18 13:42 11/19/18 13:42 11/19/18 13:42 11/19/18 13:42 11/19/18 13:42 - Physical Exam Comments: GENERAL: Large bruise on right forehead. Awake and alert. No acute distress. HEENT: Hematoma on right forehead. well healing scabs around the left eye. Normocephalic. PERRLA, EOMI. No conjunctival pallor. Sclera are non-icteric. Moist mucous membranes. Oropharynx is clear. NECK: Supple. Full ROM. No JVD. CARDIOVASCULAR: Regular rate and rhythm. Distal pulses are 2+ and symmetric. PULMONARY: No evidence of respiratory distress. Lungs clear to auscultation bilaterally. No wheezing, rales or rhonchi. ABDOMINAL: Soft. Non-tender. Non-distended. No rebound or guarding. No organomegaly. Normoactive bowel sounds. MUSCULOSKELETAL Normal range of motion at all joints. There is slight bony tenderness on the left mijares with a small laceration. No bony deformities. No CVA tenderness. EXTREMITIES: Left upper extremity fistula in place. No cyanosis. No clubbing. No edema. No calf tenderness. SKIN: scabs healing around left eye. Warm and dry. Normal capillary refill. No jaundice. NEUROLOGICAL: Alert, awake, appropriate. Cranial nerves 2-12 intact. No deficits to light touch in face, upper extremities and lower extremities. No motor deficits in the in face, upper extremities and lower extremities. Normal speech. PSYCHIATRIC: Cooperative. Good eye contact. Appropriate mood and affect. ED Treatment Course - RADIOLOGY Radiograph Interpretation: Head CT: Cranial CT without contrast Clinical information: evaluate for bleed No intracranial hemorrhage is noted. There is no extra-axial fluid collection. No CT evidence of intracranial injury or calvarial fracture. In comparison to a prior CT study of 11/09/2018 interval development of a right frontal scalp hematoma is seen. As on an MRI exam of 11/09/2018 note is made of a small acute/ subacute infarct within the right frontal degroot radiata. Several small chronic infarcts are seen within the left frontal degroot radiata. Chronic left parieto- occipital cortical infarct as on the prior CT/MRI exams. No gross mass lesion is noted. There is no obstructive hydrocephalus. Note is again made of a moderate amount of nonspecific fluid accumulation within the left mastoid air cells. IMPRESSION: No CT evidence of acute intracranial injury. Right frontal scalp hematoma. Small acute/subacute right frontal subcortical white matter infarct as also noted on an MRI exam of 11/09/2018. Small chronic left frontal subcortical white matter infarcts. Chronic left parieto-occipital cortical infarct as on prior studies. Note is again made of a moderate amount of fluid within the left mastoid air cells. Cervical CT: Cervical spine CT without contrast Clinical information: fall Multiplanar imaging was performed. No fracture or posttraumatic malalignment is seen. Prominent multilevel degenerative disc and facet joint changes are noted. There is mild multilevel degenerative anterolisthesis. The perivertebral soft tissues demonstrate no obvious abnormality. Impression: No fracture is identified. Tib/Fib XR: Tibia and fibula: Pain. Possible fracture AP and lateral views of the left tibia and fibula reveal loss of bone density, degenerative changes and vascular calcifications. There are metallic foreign bodies in the soft tissues posterior to the mid third of the tibia. Correlation recommended. Impression: No acute fracture. Arthritic changes. Loss of bone density. Vascular calcifications. Metallic foreign bodies posterior soft tissues. Medical Decision Making - Medical Decision Making Marissa Murphy is a 68 yo F from [facility] w a pmh of HTN, HLD, NIDDM, dementia , CVA w residual left sided weakness, ESRD (T/R/Sat), anemia, CAD, angina, b/l cataracts, GERD and seizures who presents to the [facility] ER via EMS after she fell down and hit her head when the son was assisting her to get up in the [facility]. Per Chart patient is taking aspirin and plavix. Patient states she was recently in this hospital and diagnosed with a CVA. Son who is with patient at bedside states it is his fault because patient always has weak legs and is not steady on her feet. The son states that as the patient was trying to get up her legs went out and she fell hitting her right forehead and left leg. The patient denied feeling abnormal in any capacity but the [place] [employer] floor supervisor advised to come to the ER to be evaluated. Here in the ER the patient has a large swollen bruise on her right forehead. Denies new weakness, fevers, chills, numbness, tingling, chest pain, SOB, difficulty breathing, or back pain. Vital Signs Temp Pulse Resp BP Pulse Ox 97.2 F L 66 18 131/65 99 11/19/18 13:42 11/19/18 13:42 11/19/18 13:42 11/19/18 13:42 11/19/18 13:42 DDx IBNLT: ICH, SAH, vertebral fx, tib/fib injury MDM: It appears the patient experienced a mechanical fall and was unsteady on her feet. There does not appear to be any acute changes from her baseline according to the patient and her son. Plan: Head/neck CT to r/o fx or brain bleed. Leg XR renata r/o fx, analgesia, re- assess. Head CT: MPRESSION: No CT evidence of acute intracranial injury. Right frontal scalp hematoma. Small acute/subacute right frontal subcortical white matter infarct as also noted on an MRI exam of 11/09/2018. Small chronic left frontal subcortical white matter infarcts. Chronic left parieto-occipital cortical infarct as on prior studies. Note is again made of a moderate amount of fluid within the left mastoid air cells. Cervical CT: Impression: No fracture is identified. XR: Tibia and fibula: Pain. Possible fracture AP and lateral views of the left tibia and fibula reveal loss of bone density, degenerative changes and vascular calcifications. There are metallic foreign bodies in the soft tissues posterior to the mid third of the tibia. Correlation recommended. Impression: No acute fracture. Arthritic changes. Loss of bone density. Vascular calcifications. Metallic foreign bodies posterior soft tissues. Re-assessment: Patient feels well and has been asymptomatic throughout her ED stay. Imaging essentially negative for acute pathology. Disposition: DC back to [facility]. *DC/Admit/Observation/Transfer Diagnosis at time of Disposition: Fall Qualifiers: Encounter type: initial encounter Qualified Code(s): W19.XXXA - Unspecified fall, initial encounter - Discharge Dispostion Disposition: HOME Condition at time of disposition: Improved Decision to Admit order: No - Referrals Referrals: Enio Saenz MD [Primary Care Provider] - - Patient Instructions Printed Discharge Instructions: How to Prevent Falls Additional Instructions: You came into the ER after you fell and hit your head. We did a cat scan of your head which showed you are not bleeding in your brain. We also did a cat scan of your neck which showed no broken bones in your neck. Please make sure to schedule a follow up appointment with your primary care doctor in the next 3 to 5 days. Come back to the ER immediately if you experience and nausea, vomiting, headache , or any other new or worsening concerns. Thank you for coming to the [facility] ER. We hope you feel better soon! Print Language: RWANDAN - Post Discharge Activity
[2018-11-19] MEDS ORDERED: ACETAMINOPHEN 325 MG TABLET (FP) PO ONE (14:39)
[2018-11-19] MEDS ORDERED: ACETAMINOPHEN 325 MG TABLET (FP) ONE (15:09)
--- NOTE | 2018-11-19 15:44 | PDOC ---
Attending Attestation - Resident Resident Name: Jeffery Nunez - ED Attending Attestation I have performed the following: I have examined & evaluated the patient, The case was reviewed & discussed with the resident, I agree w/resident's findings & plan, Exceptions are as noted - HPI HPI: 11/19/18 15:39 68 F with h/o HTN, HLD, DM, dementia, CVA, ESRD, CAD, presenting to ED for fall. Pt was being assisted out of her chair at [place] by her son when she fell. Pt has baseline weakness in her legs and requires significant assistance at all times to get around. Pt endorses hitting her head but no LOC. Denies any new weakness in any extremity. Denies CP/SOB/palpitations/lightheadedness. Pt now complains of pain in her forehead as well as her mijares. - Physicial Exam PE: 11/19/18 15:44 GENERAL: Awake, alert, in no acute distress. HEAD: + hematoma to forehead EYES: PERRLA, EOMI, sclera anicteric, conjunctiva clear ENT: Auricles normal inspection, hearing grossly normal, nares patent, oropharynx clear without exudates. Moist mucosa NECK: Nontender, no stepoffs, Normal ROM, supple, no lymphadenopathy, JVD, or masses LUNGS: Breath sounds equal, clear to auscultation bilaterally. No wheezes, and no crackles HEART: Regular rate and rhythm, normal S1 and S2, no murmurs, rubs or gallops ABDOMEN: Soft, nontender, normoactive bowel sounds. No guarding, no rebound. No masses EXTREMITIES: Normal range of motion, no edema. No clubbing or cyanosis. No cords, erythema, or tenderness NEUROLOGICAL: Cranial nerves II through XII intact. 5/5 strength and sensation in all extremities, Normal speech, normal gait, normal cerebellar function SKIN: Warm, Dry, normal turgor, no rashes or lesions noted. - Medical Decision Making 11/19/18 15:45 68 F with forehead hematoma and L mijares pain after mechanical fall today. - CT head/c-spine - XR L tib/fib 11/19/18 15:45 Imaging negative Pt is well appearing, with normal vitals. Clinically stable for DC at this time. I discussed the physical exam findings, ancillary test results and final diagnoses with the patient. I answered all of the patient's questions. The patient was satisfied with the care received and felt comfortable with the discharge plan and treatment plan. The patient agrees to follow up with the primary care physician within 24-72 hours.
--- NOTE | 2018-11-20 12:44 | EKG ---
Test Reason : Blood Pressure : / mmHG Vent. Rate : 068 BPM Atrial Rate : 068 BPM P-R Int : 186 ms QRS Dur : 112 ms QT Int : 478 ms P-R-T Axes : 009 016 051 degrees QTc Int : 508 ms NORMAL SINUS RHYTHM INCOMPLETE LEFT BUNDLE BRANCH BLOCK PROLONGED QT ABNORMAL ECG WHEN COMPARED WITH ECG OF 07-NOV-2018 20:28, NO SIGNIFICANT CHANGE WAS FOUND Confirmed by Deep Danielle MD ([id number]) on 11/20/2018 12:44:25 PM Referred By: Confirmed By:Deep Danielle MD
== END 2018-11-19 16:30 | disposition home or self-care (01) ==
LOC: JER 13:31
DX: S00.83XA Contusion of other part of head, initial encounter (principal); S80.12XA Contusion of left lower leg, initial encounter; W04.XXXA Fall while being carried or supported by other persons, initial encounter; Y93.89 Activity, other specified; Y92.122 Bedroom in nursing home as the place of occurrence of the external cause; Y99.8 Other external cause status; I25.119 Atherosclerotic heart disease of native coronary artery with unspecified angina pectoris; I13.11 Hypertensive heart and chronic kidney disease without heart failure, with stage 5 chronic kidney disease, or end stage renal disease; N18.6 End stage renal disease; Z99.2 Dependence on renal dialysis; Z95.5 Presence of coronary angioplasty implant and graft; E78.5 Hyperlipidemia, unspecified; E11.22 Type 2 diabetes mellitus with diabetic chronic kidney disease; Z79.84 Long term (current) use of oral hypoglycemic drugs; F03.90 Unspecified dementia, unspecified severity, without behavioral disturbance, psychotic disturbance, mood disturbance, and anxiety; G40.909 Epilepsy, unspecified, not intractable, without status epilepticus; I69.854 Hemiplegia and hemiparesis following other cerebrovascular disease affecting left non-dominant side; D64.9 Anemia, unspecified
CPT/HCPCS: 70450-TC; 72125-TC; 73590-TC-LT-FY; 93005; 93010; 99282-25

== ENCOUNTER → 2018-12-05 | Day surgery (SDC) | payer OTHER | END | disposition home or self-care (01) | LOC: JRADIR 10:25 | PROVIDERS: ATTEND Internal Medicine | PROC: 02PY03Z Removal of Infusion Device from Great Vessel, Open Approach (ICD-10-PCS; principal; 2018-12-05) | DX: Z45.2 Encounter for adjustment and management of vascular access device (principal) | CPT/HCPCS: 36589 ==

== ENCOUNTER 2018-12-29 00:52 | Inpatient (IN) | payer OTHER ==
[2018-12-29 01:15] VITALS: BMI 29.2
--- NOTE | 2018-12-29 01:23 | PDOC ---
History of Present Illness - General Chief Complaint: Shortness of Breath Stated Complaint: DIFFICULTY BREATHING Time Seen by Provider: 12/29/18 01:16 - History of Present Illness Initial Comments: The pt is a 68F with a history of HTN, HLD, DM, dementia, CVA, ESRD, CAD who presents for evaluation of 1 day of shortness of breath. She denies fevers, chest pain, N/V, dizziness, abdominal pain, dysuria, hematuria, or blood in her stool. She denies swelling of her legs. She denies being on O2 at home. Reports she was discharged from [facility] today and has been feeling well before today. 12/29/18 01:20 Past History - Past Medical History Allergies/Adverse Reactions: Allergies Allergy/AdvReac Type Severity Reaction Status Date / Time codeine Allergy Verified 12/29/18 01:48 promethazine HCl Allergy Verified 12/29/18 01:48 [From Phenergan] Home Medications: Ambulatory Orders Aspirin [ASA -] 81 mg PO DAILY 11/07/18 Atorvastatin Ca [Lipitor] 40 mg PO HS 11/07/18 Carvedilol [Coreg -] 6.25 mg PO BID 11/07/18 Donepezil HCl [Aricept -] 10 mg PO HS 11/07/18 Losartan Potassium [Cozaar -] 25 mg PO DAILY 11/07/18 Memantine HCl [Namenda -] 10 mg PO BID 11/07/18 Nifedipine [Procardia Xl] 90 mg PO DAILY 11/07/18 Pantoprazole Sodium [Protonix] 40 mg PO DAILY 11/08/18 Clopidogrel Bisulfate [Plavix -] 75 mg PO DAILY tablet 11/15/18 Insulin Detemir [Levemir Flextouch] 15 unit SQ HS 12/29/18 Mirtazapine [Remeron -] 15 mg PO HS 12/29/18 Anemia: Yes Asthma: No Cancer: No Cardiac Disorders: Yes (angina) CVA: Yes (L sided weakness) COPD: No CHF: No DVT: No Dementia: Yes (AMS) Diabetes: Yes Dialysis: Yes () GI Disorders: Yes (GERD) Disorders: No HTN: Yes Hypercholesterolemia: Yes Liver Disease: No Seizures: Yes Thyroid Disease: No - Surgical History Abdominal Surgery: Yes Appendectomy: Yes Neurologic Surgery: No - Immunization History Immunization Up to Date: Yes - Psycho Social/Smoking Cessation Hx Smoking Status: No Smoking History: Unknown if ever smoked Have you smoked in the past 12 months: No Number of Cigarettes Smoked Daily: 0 Information on smoking cessation initiated: No Hx Alcohol Use: No Drug/Substance Use Hx: No Substance Use Type: None Hx Substance Use Treatment: No Review of Systems - Review of Systems Able to Perform ROS?: Yes Comments:: GENERAL/CONSTITUTIONAL: No fever or chills. No weakness HEAD, EYES, EARS, NOSE AND THROAT: No change in vision. No change in hearing. No sore throat CARDIOVASCULAR: No chest pain RESPIRATORY: Denies cough, hemoptysis GASTROINTESTINAL: No nausea, vomiting, diarrhea or constipation GENITOURINARY: No dysuria, frequency, or change in urination MUSCULOSKELETAL: No joint or muscle swelling or pain. No neck or back pain SKIN: No rash NEUROLOGIC: No headache, vertigo, loss of consciousness ENDOCRINE: No increased thirst. No abnormal weight change ALLERGIC/IMMUNOLOGIC: No hives or skin allergy 12/29/18 01:37 Is the patient limited Lithuanian proficient: No *Physical Exam - Vital Signs Last Vital Signs Temp Pulse Resp BP Pulse Ox 99.1 F 109 H 24 H 161/88 98 12/29/18 01:13 12/29/18 01:13 12/29/18 01:13 12/29/18 01:13 12/29/18 01:13 - Physical Exam Comments: GENERAL: Awake, alert, and oriented to person/place/time, in no acute distress HEAD: No signs of trauma, normocephalic, atraumatic EYES: PERRLA, EOMI, sclera anicteric, conjunctiva clear ENT: Hearing grossly normal, nares patent, oropharynx clear without exudates. No uvular deviation. Moist mucosa LUNGS: R>L crackles, decreased breath sounds at the b/l bases HEART: Tachycardic rate with regular rhythm, normal S1 and S2, no murmurs appreciated, peripheral pulses normal and equal bilaterally ABDOMEN: Soft, nontender, normoactive bowel sounds. No guarding, no rebound EXTREMITIES: Normal inspection, Normal range of motion, no edema. No clubbing or cyanosis NEUROLOGICAL: Chronic left facial droop, Normal speech SKIN: Warm, Dry 12/29/18 01:39 ED Treatment Course - LABORATORY CBC & Chemistry Diagram: 12/29/18 01:47 12/29/18 01:47 - RADIOLOGY Radiology Studies Ordered: Category Date Time Status CHEST X-RAY PORTABLE* [RAD] Stat Radiology 12/29/18 01:19 Ordered Medical Decision Making - Medical Decision Making The pt is a 68F with a history of HTN, HLD, DM, dementia, CVA, ESRD, CAD who presents for evaluation of 1 day of shortness of breath. Pt likely hypervolemic. Pt due for dialysis 12/28/18 ED Course Labs sent from sepsis order set CXR ECG BiPAP 12/29/18 01:41 ECG w/ sinus tachycardia; HR 105; no axis deviation, no ischemic changes 12/29/18 02:00 No leukocytosis Mild anemia, no indication to transfuse at this time 12/29/18 04:15 CMP hemolyzed x2 Thrid sent Trop I neg Remainder of CMP pending BNP elevated, most recent ECHO w/ EF 65% Plan for admission for hypervolemia Pt with improved symptoms on BiPAP Pt signed out to Alfredaricardo Admitting 12/29/18 07:14 Discharge - Discharge Information Problems reviewed: Yes Clinical Impression/Diagnosis: Shortness of breath, ESRD (end stage renal disease) on dialysis Condition: Fair - Admission Yes - Follow up/Referral - Patient Discharge Instructions - Post Discharge Activity
--- NOTE | 2018-12-29 01:25 | PDOC ---
Attending Attestation - Resident Resident Name: Adrián Zacarias - ED Attending Attestation I have performed the following: I have examined & evaluated the patient, The case was reviewed & discussed with the resident, I agree w/resident's findings & plan, Exceptions are as noted - HPI HPI: 12/29/18 01:24 The pt is a 68F with a history of HTN, HLD, DM, CVA, ESRD (T,R,Sat), CAD who presents for evaluation of 1 day of shortness of breath. No fevers or chills No cough She denies fevers, chest pain, N/V, dizziness, abdominal pain, dysuria, hematuria, or blood in her stool. She denies swelling of her legs. Pt states she was discharged from [facility] today and has been feeling well before today. 12/29/18 01:20 PAST MEDICAL HISTORY: HTN, HLD, CVA, ESRD (T/R/Sat), b/l cataracts PAST SURGICAL HISTORY: Renal transplantation Social History: denies tobacco/drugs/alcohol Allergies: codeine, Phenergan - Physicial Exam PE: 12/29/18 03:42 GENERAL: Awake, alert EYES: PERRLA, EOMI, sclera anicteric, conjunctiva clear ENT: Hearing grossly normal, nares patent, oropharynx clear without exudates. LUNGS: R>L crackles, decreased breath sounds at the b/l bases HEART: Tachycardic rate with regular rhythm, normal S1 and S2, no murmurs appreciated, peripheral pulses normal and equal bilaterally ABDOMEN: Soft, nontender, normoactive bowel sounds. No guarding, no rebound EXTREMITIES: Normal inspection, Normal range of motion, no edema. No clubbing or cyanosis NEUROLOGICAL: Chronic left facial droop, Normal speech SKIN: Warm, Dry - Medical Decision Making 12/29/18 04:46 Laboratory Tests 11/15/18 12/29/18 07:10 01:47 WBC 10.4 H 10.7 H Hgb 9.6 L 8.3 L Hct 29.0 L 25.4 L Plt Count 238 D 255 CXR - congestive changes, no effusion Pt stable on BIPAP Will plan to admit for HD due to fluid overloading (pt does not make urine) Clinical impression: fluid overloading, initial presentation
[2018-12-29 02:18] LABS: BASO % 0.7 % (0-2.0); EOS % 4.8 % (0-4.5); HEMATOCRIT 25.4 % (32.4-45.2); HEMOGLOBIN 8.3 GM/dL (10.7-15.3); LYMPH % 7.7 % (8-40); MCH 31.3 pg (25.7-33.7); MCHC 32.8 g/dl (32.0-36.0); MEAN CELL VOLUME 95.2 fl (80-96); MEAN PLT VOLUME 8.5 fl (7.5-11.1); MONO % 7.3 % (3.8-10.2); NEUT % 79.5 % (42.8-82.8); PLATELET COUNT 255 K/MM3 (134-434); RBC 2.67 M/mm3 (3.60-5.2); RDW 15.2 % (11.6-15.6); WHITE BLOOD COUNT 10.7 K/mm3 (4.0-10.0)
[2018-12-29 02:24] LABS: VENOUS PC02 45.1 mmHg (38-52); VENOUS PH 7.4 (7.31-7.41)
[2018-12-29 03:07] LABS: PROTHROMBIN TIME (PATIENT) 11.8 SEC (9.7-13.0)
[2018-12-29 07:22] LABS: ALK PHOS 78 U/L (45-117); ANION GAP 10 MMOL/L (8-16); BILIRUBIN,TOTAL 0.5 mg/dL (0.2-1); BLOOD UREA NITROGEN 40.5 mg/dL (7-18); CALCIUM 8.2 mg/dL (8.5-10.1); CHLORIDE 98 mmol/L (98-107); CO2 26 mmol/L (21-32); GLUCOSE,RANDOM 145 mg/dL (74-106); MAGNESIUM 2.1 mg/dL (1.8-2.4); POTASSIUM 4.7 mmol/L (3.5-5.1); SGOT/AST 20 U/L (15-37); SGPT/ALT 20 U/L (13-61); SODIUM 134 mmol/L (136-145); TOT PROT 6.8 g/dl (6.4-8.2)
--- NOTE | 2018-12-29 09:29 | HP ---
<Ankush Swanson - Last Filed: 12/29/18 12:18> CHIEF COMPLAINT: PCP: HISTORY OF PRESENT ILLNESS: ER course was notable for: (1) (2) (3) Recent Travel: PAST MEDICAL HISTORY: PAST SURGICAL HISTORY: Social History: Smoking: Alcohol: Drugs: Allergies codeine Allergy (Verified 12/29/18 01:48) promethazine HCl [From Phenergan] Allergy (Verified 12/29/18 01:48) ANAPHYLAXIS HOME MEDICATIONS: Home Medications Medication Instructions Recorded Aspirin [ASA -] 81 mg PO DAILY 11/07/18 Atorvastatin Ca [Lipitor] 40 mg PO HS 11/07/18 Carvedilol [Coreg -] 6.25 mg PO BID 11/07/18 Donepezil HCl [Aricept -] 10 mg PO HS 11/07/18 Losartan Potassium [Cozaar -] 25 mg PO DAILY 11/07/18 Memantine HCl [Namenda -] 10 mg PO BID 11/07/18 Nifedipine [Procardia Xl] 90 mg PO DAILY 11/07/18 Pantoprazole Sodium [Protonix] 40 mg PO DAILY 11/08/18 Clopidogrel Bisulfate [Plavix -] 75 mg PO DAILY tablet 11/15/18 Insulin Detemir [Levemir Flextouch] 15 unit SQ HS 12/29/18 Mirtazapine [Remeron -] 15 mg PO HS 12/29/18 REVIEW OF SYSTEMS CONSTITUTIONAL: Absent: fever, chills, diaphoresis, generalized weakness, malaise, loss of appetite, weight change HEENT: Absent: rhinorrhea, nasal congestion, throat pain, throat swelling, difficulty swallowing, mouth swelling, ear pain, eye pain, visual changes CARDIOVASCULAR: Absent: chest pain, syncope, palpitations, irregular heart rate, lightheadedness , peripheral edema RESPIRATORY: Absent: cough, shortness of breath, dyspnea with exertion, orthopnea, wheezing, stridor, hemoptysis GASTROINTESTINAL: Absent: abdominal pain, abdominal distension, nausea, vomiting, diarrhea, constipation, melena, hematochezia GENITOURINARY: Absent: dysuria, frequency, urgency, hesitancy, hematuria, flank pain, genital pain MUSCULOSKELETAL: Absent: myalgia, arthralgia, joint swelling, back pain, neck pain SKIN: Absent: rash, itching, pallor HEMATOLOGIC/IMMUNOLOGIC: Absent: easy bleeding, easy bruising, lymphadenopathy, frequent infections ENDOCRINE: Absent: unexplained weight gain, unexplained weight loss, heat intolerance, cold intolerance NEUROLOGIC: Absent: headache, focal weakness or paresthesias, dizziness, unsteady gait, seizure, mental status changes, bladder or bowel incontinence PSYCHIATRIC: Absent: anxiety, depression, suicidal or homicidal ideation, hallucinations. PHYSICAL EXAMINATION Vital Signs - 24 hr 12/29/18 12/29/18 12/29/18 01:13 01:36 01:50 Temperature 99.1 F Pulse Rate 109 H Pulse Rate [ Right Radial] Respiratory 24 H Rate Blood Pressure 161/88 Blood Pressure [Right Arm] O2 Sat by Pulse 98 98 100 Oximetry (%) 12/29/18 12/29/18 12/29/18 05:00 06:23 09:34 Temperature 98.0 F Pulse Rate Pulse Rate [ 98 H 90 90 Right Radial] Respiratory 22 H 18 16 Rate Blood Pressure Blood Pressure 146/64 124/69 142/66 [Right Arm] O2 Sat by Pulse 100 100 100 Oximetry (%) GENERAL: Awake, alert, and fully oriented, in no acute distress. HEAD: Normal with no signs of trauma. EYES: Pupils equal, round and reactive to light, extraocular movements intact, sclera anicteric, conjunctiva clear. No lid lag. EARS, NOSE, THROAT: Ears normal, nares patent, oropharynx clear without exudates. Moist mucous membranes. NECK: Normal range of motion, supple without lymphadenopathy, JVD, or masses. LUNGS: Breath sounds equal, clear to auscultation bilaterally. No wheezes, and no crackles. No accessory muscle use. HEART: Regular rate and rhythm, normal S1 and S2 without murmur, rub or gallop. ABDOMEN: Soft, nontender, not distended, normoactive bowel sounds, no guarding, no rebound, no masses. No hepatomegaly or splenomegaly. MUSCULOSKELETAL: Normal range of motion at all joints. No bony deformities or tenderness. No CVA tenderness. UPPER EXTREMITIES: 2+ pulses, warm, well-perfused. No cyanosis. No clubbing. No peripheral edema. LOWER EXTREMITIES: 2+ pulses, warm, well-perfused. No calf tenderness. No peripheral edema. NEUROLOGICAL: Cranial nerves II-XII intact. Normal speech. Normal gait. PSYCHIATRIC: Cooperative. Good eye contact. Appropriate mood and affect. SKIN: Warm, dry, normal turgor, no rashes or lesions noted, normal capillary refill. Laboratory Results - last 24 hr 12/29/18 12/29/18 12/29/18 01:47 01:47 01:47 WBC 10.7 H RBC 2.67 L Hgb 8.3 L Hct 25.4 L MCV 95.2 MCH 31.3 MCHC 32.8 RDW 15.2 D Plt Count 255 MPV 8.5 Absolute Neuts (auto) 8.6 H Neutrophils % 79.5 Lymphocytes % 7.7 L Monocytes % 7.3 Eosinophils % 4.8 H D Basophils % 0.7 D Nucleated RBC % 0 PT with INR INR PTT (Actin FS) 35.0 VBG pH POC VBG pCO2 POC VBG pO2 VBG HCO3 VBG O2 Sat (Kurt) VBG Base Excess Sodium Cancelled Potassium Cancelled Chloride Cancelled Carbon Dioxide Cancelled Anion Gap Cancelled BUN Cancelled Creatinine Cancelled Est GFR (CKD-EPI)AfAm Cancelled Est GFR (CKD-EPI)NonAf Cancelled Random Glucose Cancelled Lactic Acid Calcium Cancelled Phosphorus Magnesium Total Bilirubin Cancelled AST Cancelled ALT Cancelled Alkaline Phosphatase Cancelled Creatine Kinase Troponin I B-Natriuretic Peptide Total Protein Cancelled Albumin Cancelled 12/29/18 12/29/18 12/29/18 01:47 01:47 01:53 WBC RBC Hgb Hct MCV MCH MCHC RDW Plt Count MPV Absolute Neuts (auto) Neutrophils % Lymphocytes % Monocytes % Eosinophils % Basophils % Nucleated RBC % PT with INR 11.80 INR 1.00 PTT (Actin FS) VBG pH 7.40 POC VBG pCO2 45.1 POC VBG pO2 63.0 H VBG HCO3 27.2 VBG O2 Sat (Kurt) 88.2 H VBG Base Excess 2.6 H Sodium Potassium Chloride Carbon Dioxide Anion Gap BUN Creatinine Est GFR (CKD-EPI)AfAm Est GFR (CKD-EPI)NonAf Random Glucose Lactic Acid 1.1 Calcium Phosphorus Magnesium Total Bilirubin AST ALT Alkaline Phosphatase Creatine Kinase Troponin I B-Natriuretic Peptide Total Protein Albumin 12/29/18 12/29/18 12/29/18 01:53 04:00 04:00 WBC RBC Hgb Hct MCV MCH MCHC RDW Plt Count MPV Absolute Neuts (auto) Neutrophils % Lymphocytes % Monocytes % Eosinophils % Basophils % Nucleated RBC % PT with INR INR PTT (Actin FS) VBG pH POC VBG pCO2 POC VBG pO2 VBG HCO3 VBG O2 Sat (Kurt) VBG Base Excess Sodium Potassium Chloride Carbon Dioxide Anion Gap BUN Creatinine Est GFR (CKD-EPI)AfAm Est GFR (CKD-EPI)NonAf Random Glucose Lactic Acid Calcium Phosphorus Cancelled Magnesium Total Bilirubin AST ALT Alkaline Phosphatase Creatine Kinase Cancelled Cancelled Troponin I Cancelled Cancelled B-Natriuretic Peptide Total Protein Albumin 12/29/18 12/29/18 12/29/18 04:00 06:10 06:10 WBC RBC Hgb Hct MCV MCH MCHC RDW Plt Count MPV Absolute Neuts (auto) Neutrophils % Lymphocytes % Monocytes % Eosinophils % Basophils % Nucleated RBC % PT with INR INR PTT (Actin FS) VBG pH POC VBG pCO2 POC VBG pO2 VBG HCO3 VBG O2 Sat (Kurt) VBG Base Excess Sodium Cancelled 134 L Potassium Cancelled 4.7 Chloride Cancelled 98 Carbon Dioxide Cancelled 26 Anion Gap Cancelled 10 BUN Cancelled 40.5 H Creatinine Cancelled 6.0 H Est GFR (CKD-EPI)AfAm Cancelled 7.79 Est GFR (CKD-EPI)NonAf Cancelled 6.72 Random Glucose Cancelled 145 H Lactic Acid Calcium Cancelled 8.2 L Phosphorus Cancelled 4.8 Magnesium Cancelled 2.1 Total Bilirubin Cancelled 0.5 AST Cancelled 20 ALT Cancelled 20 Alkaline Phosphatase Cancelled 78 Creatine Kinase Cancelled 108 Troponin I Cancelled < 0.02 B-Natriuretic Peptide Cancelled Total Protein Cancelled 6.8 Albumin Cancelled 3.0 L 12/29/18 06:10 WBC RBC Hgb Hct MCV MCH MCHC RDW Plt Count MPV Absolute Neuts (auto) Neutrophils % Lymphocytes % Monocytes % Eosinophils % Basophils % Nucleated RBC % PT with INR INR PTT (Actin FS) VBG pH POC VBG pCO2 POC VBG pO2 VBG HCO3 VBG O2 Sat (Kurt) VBG Base Excess Sodium Potassium Chloride Carbon Dioxide Anion Gap BUN Creatinine Est GFR (CKD-EPI)AfAm Est GFR (CKD-EPI)NonAf Random Glucose Lactic Acid Calcium Phosphorus Magnesium Total Bilirubin AST ALT Alkaline Phosphatase Creatine Kinase Troponin I B-Natriuretic Peptide 58780.3 H Total Protein Albumin ASSESSMENT/PLAN: ATTENDING PHYSICIAN STATEMENT I saw and evaluated the patient. I reviewed the resident's note and discussed the case with the resident. I agree with the resident's findings and plan as documented. SUBJECTIVE: OBJECTIVE: ASSESSMENT AND PLAN: <Nik Whitt - Last Filed: 12/29/18 17:37> CHIEF COMPLAINT: Shortness of breath PCP: Dr. Loren Lutz HISTORY OF PRESENT ILLNESS: 68yo F with significant history of ESRD (T/T/S) s/p 2 failed transplants, HTN , DM, CVA, microvascular dementia who presents to our facilities due to shortness of breath. Pt was recently at [facility] for short-term rehab and was subsequently discharged back home after her stay. Pt reports when she got home she felt short of breath, called an ambulance and came to this ED. Pt missed her dialysis day per her report, but she cannot remember why she missed it. When pt was in ED she was started on NIPPV 02/11/60%/16 which pt reported helped her breathing. Currently she feels short of breath, however pt says she feels better compared to when she first came in. Pt denies any fever/ chills, cough, chest pain, palpitations, abdominal pain, back pain, headaches, numbness/tingling, weakness. PAST MEDICAL HISTORY: HTN, HLD, CVA, ESRD (T/R/Sat), b/l cataracts PAST SURGICAL HISTORY: renal transplant- 1st transplant failed after 5 years, still in the body. 2nd attempt- donor kidney failed and was never transplanted CAD s/p Cath- Dr. Tovar as per chart Social History: Smoking: denies Alcohol: denies Drugs: denies Family History: Noncontributory Allergies codeine Allergy (Verified 12/29/18 01:48) promethazine HCl [From Phenergan] Allergy (Verified 12/29/18 01:48) ANAPHYLAXIS HOME MEDICATIONS: Home Medications Medication Instructions Recorded Aspirin [ASA -] 81 mg PO DAILY 11/07/18 Atorvastatin Ca [Lipitor] 40 mg PO HS 11/07/18 Carvedilol [Coreg -] 6.25 mg PO BID 11/07/18 Donepezil HCl [Aricept -] 10 mg PO HS 11/07/18 Losartan Potassium [Cozaar -] 25 mg PO DAILY 11/07/18 Memantine HCl [Namenda -] 10 mg PO BID 11/07/18 Nifedipine [Procardia Xl] 90 mg PO DAILY 11/07/18 Pantoprazole Sodium [Protonix] 40 mg PO DAILY 11/08/18 Clopidogrel Bisulfate [Plavix -] 75 mg PO DAILY tablet 11/15/18 Insulin Detemir [Levemir Flextouch] 15 unit SQ HS 12/29/18 Mirtazapine [Remeron -] 15 mg PO HS 12/29/18 REVIEW OF SYSTEMS As per HPI PHYSICAL EXAMINATION Vital Signs - 24 hr 12/29/18 12/29/18 12/29/18 01:13 01:36 01:50 Temperature 99.1 F Pulse Rate 109 H Pulse Rate [ Right Radial] Respiratory 24 H Rate Blood Pressure 161/88 Blood Pressure [Right Arm] O2 Sat by Pulse 98 98 100 Oximetry (%) 12/29/18 12/29/18 05:00 06:23 Temperature Pulse Rate Pulse Rate [ 98 H 90 Right Radial] Respiratory 22 H 18 Rate Blood Pressure Blood Pressure 146/64 124/69 [Right Arm] O2 Sat by Pulse 100 100 Oximetry (%) GENERAL: Awake, alert, and fully oriented, in no acute distress. Mild memory impairment HEENT: NC, L sided palsy residual from chronic CVA, R pupil reactive to light, anicteric, MMM NECK: No JVD LUNGS: Bilateral rales. No wheezes. No accessory muscle use. NIPPV 16/8/60%/16 HEART: RRR, normal S1 and S2 without murmur ABDOMEN: Soft, nontender, not distended, normoactive bowel sounds, no guarding. + Hepatojugular reflux EXTREMITIES: 2+ pulses, warm, well-perfused. No calf tenderness. 1+ edema at the ankles PSYCHIATRIC: Cooperative. Appropriate mood and affect. SKIN: Warm, dry, no rashes or lesions noted Laboratory Results - last 24 hr 12/29/18 12/29/18 12/29/18 01:47 01:47 01:47 WBC 10.7 H RBC 2.67 L Hgb 8.3 L Hct 25.4 L MCV 95.2 MCH 31.3 MCHC 32.8 RDW 15.2 D Plt Count 255 MPV 8.5 Absolute Neuts (auto) 8.6 H Neutrophils % 79.5 Lymphocytes % 7.7 L Monocytes % 7.3 Eosinophils % 4.8 H D Basophils % 0.7 D Nucleated RBC % 0 PT with INR INR PTT (Actin FS) 35.0 VBG pH POC VBG pCO2 POC VBG pO2 VBG HCO3 VBG O2 Sat (Kurt) VBG Base Excess Sodium Cancelled Potassium Cancelled Chloride Cancelled Carbon Dioxide Cancelled Anion Gap Cancelled BUN Cancelled Creatinine Cancelled Est GFR (CKD-EPI)AfAm Cancelled Est GFR (CKD-EPI)NonAf Cancelled Random Glucose Cancelled Lactic Acid Calcium Cancelled Phosphorus Magnesium Total Bilirubin Cancelled AST Cancelled ALT Cancelled Alkaline Phosphatase Cancelled Creatine Kinase Troponin I B-Natriuretic Peptide Total Protein Cancelled Albumin Cancelled 12/29/18 12/29/18 12/29/18 01:47 01:47 01:53 WBC RBC Hgb Hct MCV MCH MCHC RDW Plt Count MPV Absolute Neuts (auto) Neutrophils % Lymphocytes % Monocytes % Eosinophils % Basophils % Nucleated RBC % PT with INR 11.80 INR 1.00 PTT (Actin FS) VBG pH 7.40 POC VBG pCO2 45.1 POC VBG pO2 63.0 H VBG HCO3 27.2 VBG O2 Sat (Kurt) 88.2 H VBG Base Excess 2.6 H Sodium Potassium Chloride Carbon Dioxide Anion Gap BUN Creatinine Est GFR (CKD-EPI)AfAm Est GFR (CKD-EPI)NonAf Random Glucose Lactic Acid 1.1 Calcium Phosphorus Magnesium Total Bilirubin AST ALT Alkaline Phosphatase Creatine Kinase Troponin I B-Natriuretic Peptide Total Protein Albumin 12/29/18 12/29/18 12/29/18 01:53 04:00 04:00 WBC RBC Hgb Hct MCV MCH MCHC RDW Plt Count MPV Absolute Neuts (auto) Neutrophils % Lymphocytes % Monocytes % Eosinophils % Basophils % Nucleated RBC % PT with INR INR PTT (Actin FS) VBG pH POC VBG pCO2 POC VBG pO2 VBG HCO3 VBG O2 Sat (Kurt) VBG Base Excess Sodium Potassium Chloride Carbon Dioxide Anion Gap BUN Creatinine Est GFR (CKD-EPI)AfAm Est GFR (CKD-EPI)NonAf Random Glucose Lactic Acid Calcium Phosphorus Cancelled Magnesium Total Bilirubin AST ALT Alkaline Phosphatase Creatine Kinase Cancelled Cancelled Troponin I Cancelled Cancelled B-Natriuretic Peptide Total Protein Albumin 12/29/18 12/29/18 12/29/18 04:00 06:10 06:10 WBC RBC Hgb Hct MCV MCH MCHC RDW Plt Count MPV Absolute Neuts (auto) Neutrophils % Lymphocytes % Monocytes % Eosinophils % Basophils % Nucleated RBC % PT with INR INR PTT (Actin FS) VBG pH POC VBG pCO2 POC VBG pO2 VBG HCO3 VBG O2 Sat (Kurt) VBG Base Excess Sodium Cancelled 134 L Potassium Cancelled 4.7 Chloride Cancelled 98 Carbon Dioxide Cancelled 26 Anion Gap Cancelled 10 BUN Cancelled 40.5 H Creatinine Cancelled 6.0 H Est GFR (CKD-EPI)AfAm Cancelled 7.79 Est GFR (CKD-EPI)NonAf Cancelled 6.72 Random Glucose Cancelled 145 H Lactic Acid Calcium Cancelled 8.2 L Phosphorus Cancelled 4.8 Magnesium Cancelled 2.1 Total Bilirubin Cancelled 0.5 AST Cancelled 20 ALT Cancelled 20 Alkaline Phosphatase Cancelled 78 Creatine Kinase Cancelled 108 Troponin I Cancelled < 0.02 B-Natriuretic Peptide Cancelled Total Protein Cancelled 6.8 Albumin Cancelled 3.0 L 12/29/18 06:10 WBC RBC Hgb Hct MCV MCH MCHC RDW Plt Count MPV Absolute Neuts (auto) Neutrophils % Lymphocytes % Monocytes % Eosinophils % Basophils % Nucleated RBC % PT with INR INR PTT (Actin FS) VBG pH POC VBG pCO2 POC VBG pO2 VBG HCO3 VBG O2 Sat (Kurt) VBG Base Excess Sodium Potassium Chloride Carbon Dioxide Anion Gap BUN Creatinine Est GFR (CKD-EPI)AfAm Est GFR (CKD-EPI)NonAf Random Glucose Lactic Acid Calcium Phosphorus Magnesium Total Bilirubin AST ALT Alkaline Phosphatase Creatine Kinase Troponin I B-Natriuretic Peptide 32317.3 H Total Protein Albumin Active Medications Aspirin (Asa -) 81 mg PO DAILY [facility] Last Admin: 12/29/18 11:08 Dose: 81 mg Atorvastatin Calcium (Lipitor -) 40 mg PO [facility] Carvedilol (Coreg -) 6.25 mg PO BID [facility] Last Admin: 12/29/18 11:08 Dose: 6.25 mg Clopidogrel Bisulfate (Plavix -) 75 mg PO DAILY [facility] Last Admin: 12/29/18 11:08 Dose: 75 mg Donepezil HCl (Aricept -) 10 mg PO HS [facility] Sodium Chloride (Normal Saline -) 250 mls @ 3,000 mls/hr IV PRN PRN PRN Reason: Hypotension during Dialysis Stop: 12/30/18 17:05 Losartan Potassium (Cozaar -) 25 mg PO DAILY [facility] Last Admin: 12/29/18 11:08 Dose: 25 mg Memantine (Namenda -) 10 mg PO BID [facility] Last Admin: 12/29/18 11:08 Dose: 10 mg Mirtazapine (Remeron -) 15 mg PO HS [facility] Nifedipine (Procardia Xl -) 90 mg PO DAILY [facility] Last Admin: 12/29/18 11:09 Dose: 90 mg Pantoprazole Sodium (Protonix -) 40 mg PO DAILY [facility] Last Admin: 12/29/18 11:09 Dose: 40 mg Previous echocardiogram reviewed 10/2018: Interpretation Summary Compared to the prior echo report on 11/01/17, there is no significant change. There is mild concentric left ventricular hypertrophy. Left ventricular systolic function is normal. Ejection Fraction = 65%. The right ventricle is normal in size and function. Normal left and right atrial size and function. There is mild mitral valve thickening. There is mild mitral regurgitation. There is trace tricuspid regurgitation. Right ventricular systolic pressure is normal. There is moderate aortic valve thickening. ASSESSMENT/PLAN: Acute hypoxic respiratory distress Volume overload Type 2 DM Vascular dementia CVA with residual L sided deficits Hx HTN Hx HLD --Pt with NIPPV: settings adjusted to 16, 6, 35%, 14 RR --Titrate to NC and off maintaining SPO2 >90% --Consulted nephrology service for dialysis --If pt improves with dialysis anticipate discharge home within 24h --Continue home medications as below: ASA 81mg qdaily Plavix 75mg qdaily Coreg 6.25mg BID PO Procardia XL 90mg qdaily Cozaar 25mg qdaily Lipitor 40mg HS Aricept 10mg HS Namenda 10mg BID REmeron 15mg HS FEN: Fluids: Avoid Electrolyte abnormalities: None Nutrition: Advance as tolerated Dispo: await dialysis and interval improvement in effusions Case discussed with Dr. siddhartha Whitt, DO - IM PGY-3 Visit type - Emergency Visit Emergency Visit: Yes ED Registration Date: 12/29/18 Care time: The patient presented to the Emergency Department on the above date and was hospitalized for further evaluation of their emergent condition. - New Patient This patient is new to me today: Yes Date on this admission: 12/29/18 - Critical Care Critical Care patient: No ATTENDING PHYSICIAN STATEMENT I saw and evaluated the patient. I reviewed the resident's note and discussed the case with the resident. I agree with the resident's findings and plan as documented. SUBJECTIVE: OBJECTIVE: ASSESSMENT AND PLAN:
[2018-12-29] MEDS: CLOPIDOGREL BISULFATE 75 MG TABLET (FP) PO SCH (11:08)
[2018-12-29] MEDS: CARVEDILOL 6.25 MG TABLET (FP) PO SCH ×2 (11:08→21:53)
[2018-12-29] MEDS: LOSARTAN POTASSIUM 25 MG TABLET PO SCH (11:08)
[2018-12-29] MEDS: ASPIRIN 81 MG CHEWABLE TABLETS PO SCH (11:08)
[2018-12-29] MEDS: MEMANTINE HCL 10 MG TABLET (FP) PO SCH ×2 (11:08→21:53)
[2018-12-29] MEDS: PANTOPRAZOLE 40 MG TABLET (FP) PO SCH (11:09)
[2018-12-29] MEDS: NIFEdipine E.R. 90 MG TABLET (FP) PO SCH (11:09)
--- NOTE | 2018-12-29 14:56 | EKG ---
Test Reason : Blood Pressure : / mmHG Vent. Rate : 105 BPM Atrial Rate : 105 BPM P-R Int : 176 ms QRS Dur : 096 ms QT Int : 362 ms P-R-T Axes : 039 052 046 degrees QTc Int : 478 ms SINUS TACHYCARDIA OTHERWISE NORMAL ECG WHEN COMPARED WITH ECG OF 19-NOV-2018 15:07, VENT. RATE HAS INCREASED BY 37 BPM Confirmed by Nataliya Busby ([id number]) on 12/29/2018 2:56:00 PM Referred By: Confirmed By:Nataliya Busby
[2018-12-29] MEDS ORDERED: SODIUM CHLORIDE 250 ML IV PRN (17:05)
--- NOTE | 2018-12-29 17:10 | CON.NEP ---
Consult Consult Specialty:: Nephrology - History of Present Illness Chief Complaint: ESRD and SOB History of Present Illness: esrd on hd tiw tts admitted with sob, whhezing, cough she is unable to give details - Past Medical History [employer]PRES[employer]IVE: Yes: CVA, Dementia, TIA Cardio/Vascular: Yes: HTN, Hyperlipdemia Gastrointestinal: Yes: Other Renal/: Yes: Renal Failure (on HD (TTS)), Hemodialysis, Other (s/p DDRT 2006) Endocrine: Yes: Diabetes Mellitus - Past Surgical History Past Surgical History: Yes: Appendectomy, , Hysterectomy, Kidney Transplant (2006 [facility]) - Alcohol/Substance Use Hx Alcohol Use: No - Smoking History Smoking history: Unknown if ever smoked Have you smoked in the past 12 months: No Aproximately how many cigarettes per day: 0 - Social History Usual Living Arrangement: With Significant Other ADL: Independent History of Recent Travel: No (traveled to [place] in August 2013) Home Medications - Allergies Allergies/Adverse Reactions: Allergies Allergy/AdvReac Type Severity Reaction Status Date / Time codeine Allergy Verified 12/29/18 01:48 promethazine HCl Allergy Verified 12/29/18 01:48 [From Phenergan] - Home Medications Home Medications: Ambulatory Orders Aspirin [ASA -] 81 mg PO DAILY 11/07/18 Atorvastatin Ca [Lipitor] 40 mg PO HS 11/07/18 Carvedilol [Coreg -] 6.25 mg PO BID 11/07/18 Donepezil HCl [Aricept -] 10 mg PO HS 11/07/18 Losartan Potassium [Cozaar -] 25 mg PO DAILY 11/07/18 Memantine HCl [Namenda -] 10 mg PO BID 11/07/18 Nifedipine [Procardia Xl] 90 mg PO DAILY 11/07/18 Pantoprazole Sodium [Protonix] 40 mg PO DAILY 11/08/18 Clopidogrel Bisulfate [Plavix -] 75 mg PO DAILY tablet 11/15/18 Insulin Detemir [Levemir Flextouch] 15 unit SQ HS 12/29/18 Mirtazapine [Remeron -] 15 mg PO HS 12/29/18 Nephrology Consult - Height Height: 5 ft 4 in - Weight Weight: 170 lb - BMI Body Mass Index (BMI): 29.2 - Lab Results CBC,BMP: CBC, BMP 12/29/18 01:47 12/29/18 06:10 Anion Gap: Anion Gap Anion Gap 10 MMOL/L (8-16) 12/29/18 06:10 - Physical Examination Vital Signs: Vital Signs Temperature 99.0 F 12/29/18 15:55 Pulse Rate 98 H 12/29/18 16:35 Respiratory Rate 18 12/29/18 16:35 Blood Pressure 133/57 L 12/29/18 16:35 O2 Sat by Pulse Oximetry (%) 98 12/29/18 14:00 Assessment/Plan esrd on hd tiw tts admitted with sob, wheezing, cough partly fluid overload tolerating HD well
[2018-12-29] MEDS: ATORVASTATIN CA 40 MG TABLET (FP) PO SCH (21:53)
[2018-12-29] MEDS: MIRTAZAPINE 15 MG TABLET (FP) PO SCH (21:53)
[2018-12-29] MEDS: DONEPEZIL HCL 10 MG TABLET (FP) PO SCH (21:53)
[2018-12-30] MEDS: CARVEDILOL 6.25 MG TABLET (FP) PO SCH ×2 (10:15→21:33)
[2018-12-30] MEDS: CLOPIDOGREL BISULFATE 75 MG TABLET (FP) PO SCH (10:15)
[2018-12-30] MEDS: MEMANTINE HCL 10 MG TABLET (FP) PO SCH ×2 (10:15→21:33)
[2018-12-30] MEDS: NIFEdipine E.R. 90 MG TABLET (FP) PO SCH (10:15)
[2018-12-30] MEDS: PANTOPRAZOLE 40 MG TABLET (FP) PO SCH (10:15)
[2018-12-30] MEDS: ASPIRIN 81 MG CHEWABLE TABLETS PO SCH (10:15)
[2018-12-30] MEDS: LOSARTAN POTASSIUM 25 MG TABLET PO SCH (10:15)
--- NOTE | 2018-12-30 17:38 | PN ---
Progress Note (short form) - Note Progress Note: esrd on hd tiw tts admitted with sob, wheezing, cough partly fluid overload tolerating HD well Current Medications Aspirin (Asa -) 81 mg PO DAILY [facility] Last Admin: 12/30/18 10:15 Dose: 81 mg Atorvastatin Calcium (Lipitor -) 40 mg PO HS [facility] Last Admin: 12/29/18 21:53 Dose: 40 mg Carvedilol (Coreg -) 6.25 mg PO BID [facility] Last Admin: 12/30/18 10:15 Dose: 6.25 mg Clopidogrel Bisulfate (Plavix -) 75 mg PO DAILY [facility] Last Admin: 12/30/18 10:15 Dose: 75 mg Donepezil HCl (Aricept -) 10 mg PO HS [facility] Last Admin: 12/29/18 21:53 Dose: 10 mg Sodium Chloride (Normal Saline -) 250 mls @ 3,000 mls/hr IV PRN PRN PRN Reason: Hypotension during Dialysis Stop: 12/30/18 17:05 Losartan Potassium (Cozaar -) 25 mg PO DAILY [facility] Last Admin: 12/30/18 10:15 Dose: 25 mg Memantine (Namenda -) 10 mg PO BID [facility] Last Admin: 12/30/18 10:15 Dose: 10 mg Mirtazapine (Remeron -) 15 mg PO HS [facility] Last Admin: 12/29/18 21:53 Dose: 15 mg Nifedipine (Procardia Xl -) 90 mg PO DAILY [facility] Last Admin: 12/30/18 10:15 Dose: 90 mg Pantoprazole Sodium (Protonix -) 40 mg PO DAILY [facility] Last Admin: 12/30/18 10:15 Dose: 40 mg Last Vital Signs Temp Pulse Resp BP Pulse Ox 98.4 F 81 20 111/61 99 12/30/18 14:52 12/30/18 14:52 12/30/18 10:00 12/30/18 14:52 12/30/18 09:00 CBC, BMP 12/29/18 01:47 12/29/18 06:10 IMP- esrd fluid overload s/p hd Plan- ok for d/c from renal pov
[2018-12-30] MEDS: MIRTAZAPINE 15 MG TABLET (FP) PO SCH (21:33)
[2018-12-30] MEDS: ATORVASTATIN CA 40 MG TABLET (FP) PO SCH (21:33)
[2018-12-30] MEDS: DONEPEZIL HCL 10 MG TABLET (FP) PO SCH (21:33)
[2018-12-31 09:00] VITALS: BP 138/67; TEMP 98.4
[2018-12-31] MEDS ORDERED: PT OWN MED DRAWER 7, Y5N ONE (09:25)
[2018-12-31] MEDS: PANTOPRAZOLE 40 MG TABLET (FP) PO SCH (09:28)
[2018-12-31] MEDS: CLOPIDOGREL BISULFATE 75 MG TABLET (FP) PO SCH (09:28)
[2018-12-31] MEDS: CARVEDILOL 6.25 MG TABLET (FP) PO SCH (09:28)
[2018-12-31] MEDS: NIFEdipine E.R. 90 MG TABLET (FP) PO SCH (09:29)
[2018-12-31] MEDS: ASPIRIN 81 MG CHEWABLE TABLETS PO SCH (09:29)
[2018-12-31] MEDS: LOSARTAN POTASSIUM 25 MG TABLET PO SCH (09:29)
[2018-12-31] MEDS: MEMANTINE HCL 10 MG TABLET (FP) PO SCH (09:29)
--- NOTE | 2018-12-31 10:28 | DS ---
Physical Exam: SUBJECTIVE: Pt previously discharged yesterday pending transportation home. No complaints today. Awaiting daughter for transport back home. OBJECTIVE: Vital Signs Period Temp Pulse Resp BP Sys/Travis Pulse Ox Last 24 Hr 97.6 F-98.6 F 73-102 18-20 111-146/52-73 94 PHYSICAL EXAM GENERAL: Awake, alert, and fully oriented, in no acute distress. 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 No wheezes. No accessory muscle use. HEART: RRR, normal S1 and S2 without murmur ABDOMEN: Soft, nontender, not distended, normoactive bowel sounds, no guarding. - Hepatojugular reflux EXTREMITIES: 2+ pulses, warm, well-perfused. No calf tenderness. trace edema at the ankles PSYCHIATRIC: Cooperative. Appropriate mood and affect. SKIN: Warm, dry, no rashes or lesions noted LABS CBC, BMP 12/29/18 01:47 12/29/18 06:10 Microbiology 12/29/18 01:47 Blood - Peripheral Venous Blood Culture - Preliminary NO GROWTH OBTAINED AFTER 48 HOURS, INCUBATION TO CONTINUE FOR 3 DAYS. 12/29/18 01:43 Blood - Peripheral Venous Blood Culture - Preliminary NO GROWTH OBTAINED AFTER 48 HOURS, INCUBATION TO CONTINUE FOR 3 DAYS. IMAGING: Initial CXR: A single AP view of the chest reveals new congestive changes with possible superimposed infiltrates and fluid. There is a prominent mediastinum with arthritic changes. These findings have developed since 11/07/2018. Correlation recommended. HOSPITAL COURSE: Date of Admission:12/29/18 Date of Discharge: 12/31/18 Pt was admitted on 12/29/18 due to acute volume overload 2/2 from missing dialysis day. Pt was stabilized with NIPPV which improved breathing and was dialyzed as per our custom car builder's orders. Pt had resolved shortness of breath and she was titrated off of oxygen. She was given a pre- and post- ambulatory oxygenation assessment which she passed and does not require home oxygen. PT is being discharged in stable condition back home (being transported by daughter) with instructions to resume her home medications and continued compliance of her dialysis. Minutes to complete discharge: 30 Discharge Summary Problems reviewed: Yes Reason For Visit: SHORTNESS OF BREATH, DIABETES MELLITUS Current Active Problems Shortness of breath (Acute) ESRD (end stage renal disease) on dialysis (Chronic) Condition: Fair - Instructions Diet, Activity, Other Instructions: You were admitted from fluid overload due to missed HD Please keep all HD sessions as scheduled Spoke to Dr. Forte-did not need BMP per today but we will need BMP prior to DC FU with Dr. Lutz 3-5 days Continue renal diet Continue current activity Please return to hospital for CP, SOB, or related sx. Referrals: Loren Lutz MD [Primary Care Provider] - (3-5 days) - Home Medications Comprehensive Discharge Medication List: Ambulatory Orders Aspirin [ASA -] 81 mg PO DAILY 11/07/18 Atorvastatin Ca [Lipitor] 40 mg PO HS 11/07/18 Carvedilol [Coreg -] 6.25 mg PO BID 11/07/18 Donepezil HCl [Aricept -] 10 mg PO HS 11/07/18 Losartan Potassium [Cozaar -] 25 mg PO DAILY 11/07/18 Memantine HCl [Namenda -] 10 mg PO BID 11/07/18 Nifedipine [Procardia Xl] 90 mg PO DAILY 11/07/18 Pantoprazole Sodium [Protonix] 40 mg PO DAILY 11/08/18 Clopidogrel Bisulfate [Plavix -] 75 mg PO DAILY tablet 11/15/18 Insulin Detemir [Levemir Flextouch] 15 unit SQ HS 12/29/18 Mirtazapine [Remeron -] 15 mg PO HS 12/29/18 This patient is new to me today: No Emergency Visit: Yes ED Registration Date: 12/29/18 Care time: The patient presented to the Emergency Department on the above date and was hospitalized for further evaluation of their emergent condition. Critical Care patient: No - Discharge Referral Referred to [facility] Med [facility].C.: No ATTENDING PHYSICIAN STATEMENT I saw and evaluated the patient. I reviewed the resident's note and discussed the case with the resident. I agree with the resident's findings and plan as documented. SUBJECTIVE: OBJECTIVE: ASSESSMENT AND PLAN:
[2018-12-31 11:01] VITALS: PULSE 102
--- NOTE | 2018-12-31 11:42 | PN ---
Progress Note (short form) - Note Progress Note: Renal follow up for ESRD on HD Seen and examined at the bedside awake and alert no acute complaints s/p dialysis on Monday no sob, chest pain, abd pain, fever or chills Vital Signs Temperature 98.4 F 12/31/18 08:59 Pulse Rate 102 H 12/31/18 10:16 Respiratory Rate 18 12/31/18 08:59 Blood Pressure 138/67 12/31/18 08:59 O2 Sat by Pulse Oximetry (%) 94 L 12/31/18 10:16 Intake & Output 12/28/18 12/29/18 12/30/18 12/31/18 23:59 23:59 23:59 23:59 Intake Total 780 1000 150 Balance 780 1000 150 Weight 77.111 kg NAD awake and alert RRR CTA no LE edema CBC, BMP 12/29/18 01:47 12/29/18 06:10 68F with a history of HTN, HLD, DM, CVA, ESRD (T,R,Sat), CAD who presents for evaluation of 1 day of shortness of breath. 1. ESRD on HD 2. CHF/Fluid overload 3. CKD related Anemia 4. Hypertension 5. Hx of CVA No acute need for dialysis today. Next treatment to be done tomorrow as an outpatient. Instructed her to maintain fluid restriction and salt restriction as an outpatient continue MARITZA/Iron with Hd for anemia Discharge planning as per primary team Nicolas Mccray DO
== END 2018-12-31 11:03 | disposition home or self-care (01) | DRG 682 ==
LOC: JER 00:52 → JERBED 05:59 → J6S 19:45
PROVIDERS: ADMIT Internal Medicine; ATTEND Internal Medicine
PROC: 5A1D70Z Performance of Urinary Filtration, Intermittent, Less than 6 Hours Per Day (ICD-10-PCS; principal; 2018-12-29)
DX: I12.0 Hypertensive chronic kidney disease with stage 5 chronic kidney disease or end stage renal disease (principal); N18.6 End stage renal disease; I69.354 Hemiplegia and hemiparesis following cerebral infarction affecting left non-dominant side; E87.70 Fluid overload, unspecified; R06.03 Acute respiratory distress; F01.50 Vascular dementia, unspecified severity, without behavioral disturbance, psychotic disturbance, mood disturbance, and anxiety; E11.9 Type 2 diabetes mellitus without complications; E78.5 Hyperlipidemia, unspecified; Z99.2 Dependence on renal dialysis
CPT/HCPCS: 36415; 71045-TC-FY; 80053; 82550; 82803; 82962; 83605; 83735; 83880; 84100; 84484; 85025; 85610; 85730; 86803; 87040; 87340; 93005; 93010; 94660; 94761; 97116-GP; 97161-GP; 99285-25

== ENCOUNTER 2020-05-28 09:25 | Emergency (ER) | payer OTHER ==
[2020-05-28 10:00] VITALS: TEMP 98.2; BMI 28.3
[2020-05-28 10:45] LABS: BASO % 1.3 % (0-2.0); HEMOGLOBIN 9.9 GM/dL (10.7-15.3); LYMPH % 17.9 % (8-40); MCH 30.5 pg (25.7-33.7); MCHC 32.9 g/dl (32.0-36.0); MEAN CELL VOLUME 92.7 fl (80-96); MONO % 9.4 % (3.8-10.2); NEUT % 59.4 % (42.8-82.8); PLATELET COUNT 203 K/MM3 (134-434); RBC 3.24 M/mm3 (3.60-5.2); RDW 13.8 % (11.6-15.6); WHITE BLOOD COUNT 6.7 K/mm3 (4.0-10.0)
[2020-05-28 10:50] LABS: INR 0.92 (0.83-1.09); PROTHROMBIN TIME (PATIENT) 11.3 SEC (9.7-13.0)
[2020-05-28 10:54] LABS: ACTIVATED PTT 29.3 SECONDS (25.2-36.5)
[2020-05-28 12:15] LABS: ALBUMIN 3.5 g/dl (3.4-5.0); ALK PHOS 77 U/L (45-117); ANION GAP 8 MMOL/L (8-16); BILIRUBIN,TOTAL 0.5 mg/dL (0.2-1); CALCIUM 7.5 mg/dL (8.5-10.1); CHLORIDE 100 mmol/L (98-107); CO2 27 mmol/L (21-32); CREATININE 3.8 mg/dL (0.55-1.3); GLUCOSE,RANDOM 273 mg/dL (74-106); POTASSIUM 4.1 mmol/L (3.5-5.1); SGOT/AST 33 U/L (15-37); SGPT/ALT 33 U/L (13-61); SODIUM 135 mmol/L (136-145); TOT PROT 7.7 g/dl (6.4-8.2)
[2020-05-28 13:09] VITALS: BP 152/91; PULSE 91
== END 2020-05-28 13:09 | disposition home or self-care (01) ==
LOC: JER 09:25
DX: N18.6 End stage renal disease (principal); R10.2 Pelvic and perineal pain; Z99.2 Dependence on renal dialysis
CPT/HCPCS: 36415; 74177-TC; 80053; 83605; 83690; 84484; 85025; 85610; 85730; 93005; 93010; 99285-25

== ENCOUNTER 2020-06-27 09:00 | Emergency (ER) | payer OTHER ==
[2020-06-27 09:31] VITALS: TEMP 96.1; BMI 28.3
[2020-06-27 10:14] LABS: BASO % 2.4 % (0-2.0); EOS % 9.9 % (0-4.5); HEMATOCRIT 31.8 % (32.4-45.2); HEMOGLOBIN 10.6 GM/dL (10.7-15.3); LYMPH % 16.4 % (8-40); MCH 31.1 pg (25.7-33.7); MCHC 33.2 g/dl (32.0-36.0); MEAN CELL VOLUME 93.4 fl (80-96); MEAN PLT VOLUME 7.9 fl (7.5-11.1); MONO % 8.2 % (3.8-10.2); NEUT % 63.1 % (42.8-82.8); PLATELET COUNT 189 K/MM3 (134-434); RDW 14.9 % (11.6-15.6); WHITE BLOOD COUNT 6.2 K/mm3 (4.0-10.0)
[2020-06-27 10:37] LABS: CHLORIDE 97 mmol/L (98-107); SODIUM 135 mmol/L (136-145)
[2020-06-27 10:39] LABS: CALCIUM 7.9 mg/dL (8.5-10.1)
[2020-06-27 10:40] LABS: ANION GAP 8 MMOL/L (8-16); BLOOD UREA NITROGEN 14.6 mg/dL (7-18); CO2 30 mmol/L (21-32); GLUCOSE,RANDOM 107 mg/dL (74-106)
[2020-06-27 10:43] LABS: CREATININE 4.7 mg/dL (0.55-1.3)
[2020-06-27 12:56] VITALS: BP 192/87; PULSE 88
== END 2020-06-27 14:21 | disposition home or self-care (01) ==
LOC: JER 09:00
DX: N18.6 End stage renal disease (principal); E11.9 Type 2 diabetes mellitus without complications; R41.82 Altered mental status, unspecified; Z99.2 Dependence on renal dialysis
CPT/HCPCS: 36415; 70450-TC; 80048; 82550; 82962; 84484; 85025; 93005; 93010; 99285-25

== ENCOUNTER 2021-04-08 06:26 | Observation (INO) | payer OTHER ==
[2021-04-08 09:01] LABS: CHLORIDE 98 mmol/L (98-107); SODIUM 134 mmol/L (136-145)
[2021-04-08 09:03] LABS: ALBUMIN 3.6 g/dl (3.4-5.0); ANION GAP 11 MMOL/L (8-16); CALCIUM 10.7 mg/dL (8.5-10.1); CO2 24 mmol/L (21-32); GLUCOSE,RANDOM 261 mg/dL (74-106); MAGNESIUM 2.3 mg/dL (1.8-2.4)
[2021-04-08 09:04] LABS: BLOOD UREA NITROGEN 37.5 mg/dL (7-18)
[2021-04-08 09:06] LABS: SGPT/ALT 12 U/L (13-61)
[2021-04-08 09:08] LABS: BILIRUBIN,TOTAL 0.5 mg/dL (0.2-1); SGOT/AST 10 U/L (15-37); TOT PROT 8.8 g/dl (6.4-8.2)
[2021-04-08 09:10] LABS: ALK PHOS 80 U/L (45-117)
[2021-04-08 09:11] LABS: HEMATOCRIT 39.3 % (32.4-45.2); HEMOGLOBIN 12.3 GM/dL (10.7-15.3); LYMPH % 10.7 % (8-40); MCH 29.3 pg (25.7-33.7); MCHC 31.2 g/dl (32.0-36.0); MEAN CELL VOLUME 93.7 fl (80-96); MEAN PLT VOLUME 9.5 fl (7.5-11.1); MONO % 8.1 % (3.8-10.2); NEUT % 77.2 % (42.8-82.8); PLATELET COUNT 210 10^3/uL (134-434); RDW 14.8 % (11.6-15.6); WHITE BLOOD COUNT 9.3 K/mm3 (4.0-10.0)
[2021-04-08 09:12] LABS: N-TERMINAL BNP 11028.5 pg/ml (5-125)
[2021-04-08] MEDS ORDERED: INSULIN REGULAR HUMAN 100 UNITS/ML *VIAL IVPUSH ONE (09:12)
[2021-04-08 09:13] LABS: CREATININE 8.9 mg/dL (0.55-1.3)
[2021-04-08] MEDS ORDERED: DEXTROSE 50%-WATER - 25 GM/50 ML VIAL IVPUSH ONE (09:13)
[2021-04-08] MEDS ORDERED: CALCIUM GLUCONATE 10% - 1,000 MG/10 ML VIAL IVPB ONE (09:18)
[2021-04-08] MEDS ORDERED: DEXTROSE 50%-WATER 25 GM/50 ML DISP.SYRIN ONE (09:18)
[2021-04-08 09:20] LABS: ACTIVATED PTT 26.8 SECONDS (25.2-36.5); INR 0.95 (0.83-1.09); PROTHROMBIN TIME (PATIENT) 10.9 SEC (9.7-13.0)
[2021-04-08] MEDS ORDERED: INSULIN REGULAR HUMAN 100 UNITS/ML *VIAL ONE ×2 (09:20→09:22)
[2021-04-08] MEDS ORDERED: ACETAMINOPHEN 325 MG TABLET (FP) PO PRN (11:09)
[2021-04-08] MEDS ORDERED: CALCIUM GLUCONATE 10% - 1,000 MG/10 ML VIAL ONE (11:10)
[2021-04-08] MEDS ORDERED: ALBUTEROL SO4 2.5/IPRATROPIUM 0.5 INH SOL 3 ML VIAL.NEB. NEB ONE (11:47)
[2021-04-08] MEDS: ALBUTEROL SO4 2.5/IPRATROPIUM 0.5 INH SOL 3 ML VIAL.NEB. NEB SCH ×4 (12:03→13:38)
[2021-04-08] MEDS ORDERED: SODIUM CHLORIDE 250 ML IV PRN ×2 (12:59→15:01)
[2021-04-08] MEDS: HEPARIN NA (PORCINE) 5,000 UNITS/ML 1ML VIAL SQ SCH ×2 (15:03→22:00)
[2021-04-08 19:00] LABS: CHLORIDE 102 mmol/L (98-107); SODIUM 137 mmol/L (136-145)
[2021-04-08 19:02] LABS: CALCIUM 9.2 mg/dL (8.5-10.1)
[2021-04-08 19:03] LABS: ANION GAP 8 MMOL/L (8-16); BLOOD UREA NITROGEN 34.7 mg/dL (7-18); CO2 26 mmol/L (21-32); GLUCOSE,RANDOM 227 mg/dL (74-106)
[2021-04-08 19:14] LABS: CREATININE 8.3 mg/dL (0.55-1.3)
[2021-04-08] MEDS: INSULIN SLIDING SCALE (NOVOLOG) 1 VIAL SQ SCH (21:59)
[2021-04-08] MEDS: CARVEDILOL 12.5 MG TABLET (FP) PO SCH (22:00)
[2021-04-08] MEDS: DONEPEZIL HCL 10 MG TABLET (FP) PO SCH (22:00)
[2021-04-08] MEDS ORDERED: LOSARTAN POTASSIUM 25 MG TABLET PO SCH (22:00)
[2021-04-08] MEDS: MEMANTINE HCL 10 MG TABLET (FP) PO SCH (22:00)
[2021-04-08] MEDS: ATORVASTATIN CA 40 MG TABLET (FP) PO SCH (22:00)
[2021-04-09 03:24] VITALS: BMI 25.9
[2021-04-09] MEDS: INSULIN SLIDING SCALE (NOVOLOG) 1 VIAL SQ SCH ×5 (07:00→21:43)
[2021-04-09] MEDS: HEPARIN NA (PORCINE) 5,000 UNITS/ML 1ML VIAL SQ SCH ×3 (07:00→21:44)
[2021-04-09 10:34] LABS: BASO % 1.3 % (0-2.0); EOS % 5.7 % (0-4.5); HEMATOCRIT 36.3 % (32.4-45.2); HEMOGLOBIN 11.8 GM/dL (10.7-15.3); LYMPH % 17.9 % (8-40); MCH 30.1 pg (25.7-33.7); MCHC 32.6 g/dl (32.0-36.0); MEAN CELL VOLUME 92.5 fl (80-96); MEAN PLT VOLUME 7.9 fl (7.5-11.1); MONO % 9.9 % (3.8-10.2); NEUT % 65.2 % (42.8-82.8); PLATELET COUNT 186 10^3/uL (134-434); RBC 3.92 M/mm3 (3.60-5.2); RDW 15.1 % (11.6-15.6); WHITE BLOOD COUNT 6.8 K/mm3 (4.0-10.0)
[2021-04-09] MEDS: MEMANTINE HCL 10 MG TABLET (FP) PO SCH ×2 (10:56→21:45)
[2021-04-09] MEDS: NIFEdipine E.R. 30 MG TABLET PO SCH (10:56)
[2021-04-09] MEDS: CLOPIDOGREL BISULFATE 75 MG TABLET (FP) PO SCH (10:56)
[2021-04-09] MEDS: PANTOPRAZOLE 40 MG TABLET PO SCH (10:56)
[2021-04-09] MEDS: CARVEDILOL 12.5 MG TABLET (FP) PO SCH ×2 (10:56→21:45)
[2021-04-09 11:00] LABS: BLOOD UREA NITROGEN 20.4 mg/dL (7-18); CALCIUM 9.1 mg/dL (8.5-10.1); MAGNESIUM 2.1 mg/dL (1.8-2.4)
[2021-04-09 11:03] LABS: PHOSPHOROUS 2.6 mg/dL (2.5-4.9)
[2021-04-09 11:05] LABS: BILIRUBIN,TOTAL 0.5 mg/dL (0.2-1); TOT PROT 7.3 g/dl (6.4-8.2)
[2021-04-09] MEDS ORDERED: SODIUM CHLORIDE 250 ML IV PRN (15:33)
[2021-04-09 15:41] LABS: URINE APPEARANCE TURBID; URINE COLOR ORANGE
[2021-04-09 15:42] LABS: PH,URINE 6.5 (5.0-8.0); URINE BILIRUBIN NEGATIVE (NEGATIVE); URINE GLUCOSE (UA) NEGATIVE (NEGATIVE); URINE KETONE NEGATIVE (NEGATIVE); URINE LEUK ESTERASE 3+ (NEGATIVE); URINE NITRITE NEGATIVE (NEGATIVE); URINE PROTEIN 3+ (NEGATIVE); URINE UROBILINOGEN 0.2 mg/dL (0.2-1.0)
[2021-04-09 15:45] LABS: URINE RBC >500 /uL (0-23.9); URINE WBC >500 /uL (0-25.8)
[2021-04-09] MEDS ORDERED: DEXTROSE 5%-WATER - 50 ML IVPB ONE (17:43)
[2021-04-09] MEDS ORDERED: cefTRIAXone SODIUM 1 GM VIAL ONE (17:43)
[2021-04-09] MEDS: CEFTRIAXONE 1 GM in DEXTROSE 5%-WATER - 50 ML IVPB SCH (18:39)
[2021-04-09] MEDS: DONEPEZIL HCL 10 MG TABLET (FP) PO SCH (21:45)
[2021-04-09] MEDS: ATORVASTATIN CA 40 MG TABLET (FP) PO SCH (21:45)
[2021-04-10] MEDS: HEPARIN NA (PORCINE) 5,000 UNITS/ML 1ML VIAL SQ SCH ×3 (06:15→21:35)
[2021-04-10] MEDS: INSULIN SLIDING SCALE (NOVOLOG) 1 VIAL SQ SCH ×4 (06:15→21:36)
[2021-04-10 10:25] LABS: HEMATOCRIT 33.7 % (32.4-45.2); MCH 30.1 pg (25.7-33.7); MCHC 32.7 g/dl (32.0-36.0); MEAN CELL VOLUME 92.2 fl (80-96); PLATELET COUNT 195 10^3/uL (134-434); RBC 3.65 M/mm3 (3.60-5.2); RDW 14.9 % (11.6-15.6); WHITE BLOOD COUNT 6.4 K/mm3 (4.0-10.0)
[2021-04-10 10:44] LABS: CALCIUM 8.6 mg/dL (8.5-10.1)
[2021-04-10 10:45] LABS: ALBUMIN 2.7 g/dl (3.4-5.0); BLOOD UREA NITROGEN 28.3 mg/dL (7-18)
[2021-04-10 10:48] LABS: CREATININE 7.2 mg/dL (0.55-1.3); PHOSPHOROUS 2.9 mg/dL (2.5-4.9)
[2021-04-10 10:50] LABS: BILIRUBIN,TOTAL 0.4 mg/dL (0.2-1); TOT PROT 6.7 g/dl (6.4-8.2)
[2021-04-10] MEDS ORDERED: cefTRIAXone SODIUM 1 GM VIAL ONE (13:32)
[2021-04-10] MEDS ORDERED: DEXTROSE 5%-WATER - 50 ML IVPB ONE (13:33)
[2021-04-10] MEDS: PANTOPRAZOLE 40 MG TABLET PO SCH (13:35)
[2021-04-10] MEDS: CLOPIDOGREL BISULFATE 75 MG TABLET (FP) PO SCH (13:35)
[2021-04-10] MEDS: CARVEDILOL 12.5 MG TABLET (FP) PO SCH ×2 (13:36→21:35)
[2021-04-10] MEDS: MEMANTINE HCL 10 MG TABLET (FP) PO SCH ×2 (13:36→21:35)
[2021-04-10] MEDS: NIFEdipine E.R. 30 MG TABLET PO SCH (13:36)
[2021-04-10] MEDS: CEFTRIAXONE 1 GM in DEXTROSE 5%-WATER - 50 ML IVPB SCH (14:07)
[2021-04-10] MEDS: DONEPEZIL HCL 10 MG TABLET (FP) PO SCH (21:35)
[2021-04-10] MEDS: ATORVASTATIN CA 40 MG TABLET (FP) PO SCH (21:35)
[2021-04-11] MEDS: INSULIN SLIDING SCALE (NOVOLOG) 1 VIAL SQ SCH ×4 (06:03→21:33)
[2021-04-11] MEDS: HEPARIN NA (PORCINE) 5,000 UNITS/ML 1ML VIAL SQ SCH ×3 (06:03→21:33)
[2021-04-11 09:11] LABS: BASO % 1.5 % (0-2.0); EOS % 7.9 % (0-4.5); HEMATOCRIT 39.2 % (32.4-45.2); MCH 28.9 pg (25.7-33.7); MCHC 30.7 g/dl (32.0-36.0); MEAN PLT VOLUME 8.2 fl (7.5-11.1); MONO % 11.2 % (3.8-10.2); NEUT % 53.4 % (42.8-82.8); PLATELET COUNT 236 10^3/uL (134-434); RBC 4.17 M/mm3 (3.60-5.2); RDW 14.8 % (11.6-15.6); WHITE BLOOD COUNT 6.1 K/mm3 (4.0-10.0)
[2021-04-11] MEDS ORDERED: DEXTROSE 5%-WATER - 50 ML IVPB ONE (09:11)
[2021-04-11] MEDS ORDERED: cefTRIAXone SODIUM 1 GM VIAL ONE (09:11)
[2021-04-11] MEDS: NIFEdipine E.R. 30 MG TABLET PO SCH (09:16)
[2021-04-11] MEDS: MEMANTINE HCL 10 MG TABLET (FP) PO SCH ×2 (09:16→21:33)
[2021-04-11] MEDS: CLOPIDOGREL BISULFATE 75 MG TABLET (FP) PO SCH (09:16)
[2021-04-11] MEDS: LOSARTAN POTASSIUM 25 MG TABLET PO SCH (09:16)
[2021-04-11] MEDS: CARVEDILOL 12.5 MG TABLET (FP) PO SCH ×2 (09:16→21:33)
[2021-04-11] MEDS: CEFTRIAXONE 1 GM in DEXTROSE 5%-WATER - 50 ML IVPB SCH (09:16)
[2021-04-11] MEDS: PANTOPRAZOLE 40 MG TABLET PO SCH (09:16)
[2021-04-11 09:36] LABS: ALBUMIN 3.1 g/dl (3.4-5.0); BLOOD UREA NITROGEN 21.2 mg/dL (7-18); CALCIUM 8.5 mg/dL (8.5-10.1); MAGNESIUM 1.7 mg/dL (1.8-2.4)
[2021-04-11 09:39] LABS: CREATININE 5.9 mg/dL (0.55-1.3); PHOSPHOROUS 2.6 mg/dL (2.5-4.9)
[2021-04-11 09:41] LABS: BILIRUBIN,TOTAL 0.5 mg/dL (0.2-1); TOT PROT 7.7 g/dl (6.4-8.2)
[2021-04-11] MEDS ORDERED: MAGNESIUM OXIDE 400 MG TABLET (FP) PO ONE (14:30)
[2021-04-11] MEDS ORDERED: TETRAHYDROZOLINE HCL EYE DROPS OS PRN (17:45)
[2021-04-11] MEDS: ATORVASTATIN CA 40 MG TABLET (FP) PO SCH (21:33)
[2021-04-11] MEDS: DONEPEZIL HCL 10 MG TABLET (FP) PO SCH (21:33)
[2021-04-12] MEDS: INSULIN SLIDING SCALE (NOVOLOG) 1 VIAL SQ SCH ×3 (06:02→16:44)
[2021-04-12] MEDS: HEPARIN NA (PORCINE) 5,000 UNITS/ML 1ML VIAL SQ SCH ×2 (06:02→13:03)
[2021-04-12] MEDS ORDERED: DEXTROSE 5%-WATER - 50 ML IVPB ONE (09:42)
[2021-04-12] MEDS ORDERED: cefTRIAXone SODIUM 1 GM VIAL ONE (09:42)
[2021-04-12] MEDS: CEFTRIAXONE 1 GM in DEXTROSE 5%-WATER - 50 ML IVPB SCH (09:57)
[2021-04-12] MEDS: LOSARTAN POTASSIUM 25 MG TABLET PO SCH (09:58)
[2021-04-12] MEDS: PANTOPRAZOLE 40 MG TABLET PO SCH (09:58)
[2021-04-12] MEDS: MEMANTINE HCL 10 MG TABLET (FP) PO SCH (09:58)
[2021-04-12] MEDS: NIFEdipine E.R. 30 MG TABLET PO SCH (09:58)
[2021-04-12] MEDS: CLOPIDOGREL BISULFATE 75 MG TABLET (FP) PO SCH (09:58)
[2021-04-12] MEDS: CARVEDILOL 12.5 MG TABLET (FP) PO SCH (09:58)
[2021-04-12 10:01] LABS: BASO % 2.1 % (0-2.0); EOS % 8.4 % (0-4.5); HEMATOCRIT 35.7 % (32.4-45.2); HEMOGLOBIN 11.6 GM/dL (10.7-15.3); LYMPH % 29.4 % (8-40); MCH 30.1 pg (25.7-33.7); MCHC 32.4 g/dl (32.0-36.0); MEAN CELL VOLUME 92.8 fl (80-96); MONO % 9.9 % (3.8-10.2); NEUT % 50.2 % (42.8-82.8); PLATELET COUNT 210 10^3/uL (134-434); RBC 3.85 M/mm3 (3.60-5.2); WHITE BLOOD COUNT 6.2 K/mm3 (4.0-10.0)
[2021-04-12 10:19] LABS: CHLORIDE 100 mmol/L (98-107); SODIUM 140 mmol/L (136-145)
[2021-04-12 10:27] LABS: ANION GAP 9 MMOL/L (8-16); CALCIUM 8.3 mg/dL (8.5-10.1); CO2 31 mmol/L (21-32); GLUCOSE,RANDOM 189 mg/dL (74-106)
[2021-04-12 10:29] LABS: SGOT/AST 13 U/L (15-37); SGPT/ALT 11 U/L (13-61)
[2021-04-12 10:30] LABS: BILIRUBIN,TOTAL 0.3 mg/dL (0.2-1)
[2021-04-12 10:31] LABS: ALK PHOS 60 U/L (45-117); TOT PROT 7.3 g/dl (6.4-8.2)
[2021-04-12 10:50] LABS: CREATININE 8.1 mg/dL (0.55-1.3)
[2021-04-12 20:12] VITALS: BP 128/69; PULSE 82; TEMP 98.4
== END 2021-04-12 17:20 | disposition home or self-care (01) ==
LOC: JER 06:26 → JERBED 10:57 → UNDOADMOB 10:57 → INTOOBSV 10:57 → J5S 20:08 → JERBED 20:08 → J5S 04-09 14:11 → JERBED 04-09 14:11 → J5S 04-10 16:56
PROVIDERS: ADMIT Internal Medicine
PROC: 3E0F7GC Introduction of Other Therapeutic Substance into Respiratory Tract, Via Natural or Artificial Opening (ICD-10-PCS; principal; 2021-04-09)
PROC: 3E033GC Introduction of Other Therapeutic Substance into Peripheral Vein, Percutaneous Approach (ICD-10-PCS; 2021-04-09)
PROC: 3E03329 Introduction of Other Anti-infective into Peripheral Vein, Percutaneous Approach (ICD-10-PCS; 2021-04-09)
PROC: 3E0337Z Introduction of Electrolytic and Water Balance Substance into Peripheral Vein, Percutaneous Approach (ICD-10-PCS; 2021-04-09)
PROC: 3E023GC Introduction of Other Therapeutic Substance into Muscle, Percutaneous Approach (ICD-10-PCS; 2021-04-09)
PROC: 3E033VG Introduction of Insulin into Peripheral Vein, Percutaneous Approach (ICD-10-PCS; 2021-04-09)
DX: R53.1 Weakness (principal); I12.0 Hypertensive chronic kidney disease with stage 5 chronic kidney disease or end stage renal disease; E11.22 Type 2 diabetes mellitus with diabetic chronic kidney disease; R01.1 Cardiac murmur, unspecified; N18.6 End stage renal disease; T86.12 Kidney transplant failure; Z99.2 Dependence on renal dialysis; E83.52 Hypercalcemia; E87.5 Hyperkalemia; F01.50 Vascular dementia, unspecified severity, without behavioral disturbance, psychotic disturbance, mood disturbance, and anxiety; Z86.73 Personal history of transient ischemic attack (TIA), and cerebral infarction without residual deficits; R26.2 Difficulty in walking, not elsewhere classified; Z88.8 Allergy status to other drugs, medicaments and biological substances; Z29.9 Encounter for prophylactic measures, unspecified; Z88.6 Allergy status to analgesic agent
CPT/HCPCS: 36415; 70450-TC; 71045-TC-FY; 72125-TC; 73140-TC-RT-FY; 74176-TC; 76705-TC; 80048; 80053; 81003; 82550; 82607; 82746; 82962; 83735; 83880; 83970; 84100; 84443; 84484; 85025; 85027; 85610; 85730; 86803; 87040; 87086; 87186; 87340; 87804; 93005; 93010; 94640; 96365; 96372; 96375; 97116-GP; 97161-GP; 99285-25; C9803; G0378; J1644; U0003; U0005

== ENCOUNTER 2022-05-25 09:22 | Observation (INO) | payer OTHER ==
[2022-05-25] MEDS ORDERED: morphine CARPU-JECT 2 MG/1 ML DISP.SYRIN IVPUSH ONE ×2 (10:18→19:22)
[2022-05-25] MEDS ORDERED: ACETAMINOPHEN 325 MG TABLET (FP) PO ONE (10:18)
[2022-05-25] MEDS ORDERED: ACETAMINOPHEN 325 MG TABLET (FP) ONE (10:21)
[2022-05-25 11:18] LABS: BASO % 1.1 % (0-2.0); EOS % 7.8 % (0-4.5); HEMATOCRIT 37.4 % (32.4-45.2); HEMOGLOBIN 11.9 GM/dL (10.7-15.3); MCH 28.3 pg (25.7-33.7); MCHC 31.7 g/dl (32.0-36.0); MEAN CELL VOLUME 89.5 fl (80-96); MONO % 6.4 % (3.8-10.2); NEUT % 72.7 % (42.8-82.8); PLATELET COUNT 342 10^3/uL (134-434); RBC 4.18 M/mm3 (3.60-5.2); RDW 16.8 % (11.6-15.6); WHITE BLOOD COUNT 9.9 K/mm3 (4.0-10.0)
[2022-05-25 11:39] LABS: CHLORIDE 104 mmol/L (98-107); SODIUM 132 mmol/L (136-145)
[2022-05-25 11:42] LABS: CALCIUM 8.8 mg/dL (8.5-10.1)
[2022-05-25 11:44] LABS: ALBUMIN 2.8 g/dl (3.4-5.0); BLOOD UREA NITROGEN 21.4 mg/dL (7-18); CO2 24 mmol/L (21-32); GLUCOSE,RANDOM 131 mg/dL (74-106); LIPASE 128 U/L (73-393)
[2022-05-25 11:46] LABS: CREATININE 5.1 mg/dL (0.55-1.3)
[2022-05-25 11:47] LABS: BILIRUBIN,TOTAL 0.8 mg/dL (0.2-1); TOT PROT 8.7 g/dl (6.4-8.2)
[2022-05-25 11:50] LABS: ALK PHOS 70 U/L (45-117)
[2022-05-25 11:51] LABS: ANION GAP 3 MMOL/L (8-16); SGOT/AST 100 U/L (15-37); SGPT/ALT 27 U/L (13-61)
[2022-05-25] MEDS ORDERED: SODIUM PHOSPHATE/NA BIPHOS 133 ML ENEMA PR ONE (16:48)
[2022-05-25] MEDS ORDERED: MINERAL OIL ENEMA 133 ML ENEMA PR ONE (16:49)
[2022-05-25] MEDS ORDERED: ACETAMINOPHEN 325 MG TABLET (FP) PO PRN (21:22)
[2022-05-25] MEDS ORDERED: ATORVASTATIN CA 40 MG TABLET (FP) PO SCH (22:00)
[2022-05-25] MEDS ORDERED: DONEPEZIL HCL 10 MG TABLET (FP) PO SCH (22:00)
[2022-05-26] MEDS: ASCORBIC ACID 500 MG TABLET (FP) PO SCH ×2 (02:09→10:23)
[2022-05-26] MEDS: CLOPIDOGREL BISULFATE 75 MG TABLET (FP) PO SCH ×2 (02:09→10:23)
[2022-05-26] MEDS: PANTOPRAZOLE 40 MG TABLET PO SCH ×2 (02:09→10:23)
[2022-05-26] MEDS: CHOLECALCIFEROL (VIT D3) 1,000 UNIT (25 MCG) TABLET PO SCH ×2 (02:09→10:23)
[2022-05-26] MEDS: INSULIN SLIDING SCALE (NOVOLOG) 1 VIAL SQ SCH ×4 (02:09→16:43)
[2022-05-26] MEDS: NIFEdipine E.R. 30 MG TABLET PO SCH ×2 (02:09→10:23)
[2022-05-26] MEDS: CARVEDILOL 12.5 MG TABLET (FP) PO SCH ×2 (02:10→10:23)
[2022-05-26] MEDS: MEMANTINE HCL 10 MG TABLET (FP) PO SCH ×2 (02:11→10:23)
[2022-05-26] MEDS ORDERED: LOSARTAN POTASSIUM 25 MG TABLET PO ONE (02:15)
[2022-05-26] MEDS: LOSARTAN POTASSIUM 25 MG TABLET PO SCH ×2 (06:07→10:23)
[2022-05-26 08:16] LABS: CALCIUM 8.6 mg/dL (8.5-10.1)
[2022-05-26 08:17] LABS: ALBUMIN 2.7 g/dl (3.4-5.0); BLOOD UREA NITROGEN 30.4 mg/dL (7-18); MAGNESIUM 2.2 mg/dL (1.8-2.4)
[2022-05-26 08:19] LABS: CREATININE 6.5 mg/dL (0.55-1.3); PHOSPHOROUS 4.2 mg/dL (2.5-4.9)
[2022-05-26 08:20] LABS: BILIRUBIN,TOTAL 1.1 mg/dL (0.2-1); TOT PROT 7.2 g/dl (6.4-8.2)
[2022-05-26 08:22] LABS: HEMATOCRIT 32.8 % (32.4-45.2); HEMOGLOBIN 10.4 GM/dL (10.7-15.3); MCH 28.7 pg (25.7-33.7); MCHC 31.6 g/dl (32.0-36.0); MEAN CELL VOLUME 90.8 fl (80-96); MEAN PLT VOLUME 8.3 fl (7.5-11.1); PLATELET COUNT 297 10^3/uL (134-434); RBC 3.61 M/mm3 (3.60-5.2); RDW 16.5 % (11.6-15.6); WHITE BLOOD COUNT 8.2 K/mm3 (4.0-10.0)
[2022-05-26] MEDS ORDERED: INSULIN (NOVOLOG) ASPART 100 UNITS/ML 10ML VIAL ONE (08:49)
[2022-05-26] MEDS ORDERED: HEPARIN NA (PORCINE) 5,000 UNITS/ML 1ML VIAL SQ SCH (10:00)
[2022-05-26] MEDS: CALCIUM ACETATE 667 MG CAPSULE (FP) PO SCH ×3 (10:23→17:43)
[2022-05-26 10:39] LABS: BASO % 1.2 % (0-2.0); EOS % 10.4 % (0-4.5); HEMATOCRIT 32.9 % (32.4-45.2); HEMOGLOBIN 10.6 GM/dL (10.7-15.3); LYMPH % 13.9 % (8-40); MCHC 32.1 g/dl (32.0-36.0); MEAN CELL VOLUME 90.3 fl (80-96); MEAN PLT VOLUME 8.2 fl (7.5-11.1); MONO % 7.7 % (3.8-10.2); NEUT % 66.8 % (42.8-82.8); PLATELET COUNT 298 10^3/uL (134-434); RBC 3.64 M/mm3 (3.60-5.2); RDW 16.6 % (11.6-15.6); WHITE BLOOD COUNT 9.2 K/mm3 (4.0-10.0)
[2022-05-26] MEDS ORDERED: SODIUM CHLORIDE 250 ML IV PRN (10:39)
[2022-05-26 10:57] LABS: CALCIUM 8.5 mg/dL (8.5-10.1)
[2022-05-26 10:58] LABS: ALBUMIN 2.8 g/dl (3.4-5.0); BLOOD UREA NITROGEN 29.2 mg/dL (7-18); MAGNESIUM 2.1 mg/dL (1.8-2.4)
[2022-05-26 11:01] LABS: CREATININE 6.5 mg/dL (0.55-1.3)
[2022-05-26 11:02] LABS: BILIRUBIN,TOTAL 0.9 mg/dL (0.2-1); TOT PROT 7.6 g/dl (6.4-8.2)
[2022-05-26 11:27] VITALS: RESP 18
[2022-05-26 13:17] VITALS: TEMP 98
[2022-05-26 15:13] VITALS: BMI 25.8
[2022-05-26 16:30] VITALS: BP 129/77; PULSE 78
[2022-05-26] MEDS ORDERED: POLYETHYLENE GLYCOL (HEALTHYLAX) 3350 17 GM PACKET PO SCH ×2 (22:00)
[2022-05-26] MEDS ORDERED: SENNOSIDES 8.6MG TABLET (FP) PO SCH (22:00)
[2022-05-26] MEDS ORDERED: DOCUSATE SODIUM 100 MG CAPSULE (FP) PO SCH (22:00)
== END 2022-05-26 18:49 | disposition home health service (06) ==
LOC: JER 09:22 → UNDOADMOB 19:23 → JERBED 19:23 → OBSVTOIN 21:22 → INTOOBSV 21:22 → J8W 23:50 → JERBED 23:50 → J8W 05-26 12:49
PROVIDERS: ADMIT Internal Medicine; ATTEND Nurse Practitioner Acute Care
PROC: 3E023GC Introduction of Other Therapeutic Substance into Muscle, Percutaneous Approach (ICD-10-PCS; principal; 2022-05-26)
PROC: 3E033NZ Introduction of Analgesics, Hypnotics, Sedatives into Peripheral Vein, Percutaneous Approach (ICD-10-PCS; 2022-05-26)
DX: K59.00 Constipation, unspecified (principal); E11.22 Type 2 diabetes mellitus with diabetic chronic kidney disease; I13.11 Hypertensive heart and chronic kidney disease without heart failure, with stage 5 chronic kidney disease, or end stage renal disease; N18.6 End stage renal disease; Z99.2 Dependence on renal dialysis; Z94.0 Kidney transplant status; R10.9 Unspecified abdominal pain
CPT/HCPCS: 0241U-QW; 36415; 74018-TC-FY; 74177-TC; 76705-TC; 80053; 82962; 83605; 83690; 83735; 84100; 84132; 85025; 85027; 86803; 87340; 93005; 93010; 96372; 96374; 96375; 99285-25; G0378; J1644

== ENCOUNTER 2022-07-12 06:54 | Emergency (ER) | payer OTHER ==
[2022-07-12] MEDS ORDERED: ROCURONIUM BROMIDE 50 MG/5 ML SYRINGE ONE (06:57)
[2022-07-12 07:03] VITALS: BMI 30.9
[2022-07-12] MEDS ORDERED: LABETALOL HCL 5 MG/1 ML (100MG/20 ML VIAL) IVPUSH ONE (07:20)
[2022-07-12] MEDS ORDERED: ROCURONIUM BROMIDE 50 MG/5 ML VIAL IV ONE (07:21)
[2022-07-12 07:28] LABS: EOS % 8.5 % (0-4.5); HEMATOCRIT 37.2 % (32.4-45.2); HEMOGLOBIN 12.3 GM/dL (10.7-15.3); LYMPH % 14.1 % (8-40); MCH 29.7 pg (25.7-33.7); MCHC 32.9 g/dl (32.0-36.0); MEAN CELL VOLUME 90.1 fl (80-96); MEAN PLT VOLUME 8.4 fl (7.5-11.1); MONO % 7.2 % (3.8-10.2); NEUT % 68.2 % (42.8-82.8); PLATELET COUNT 167 10^3/uL (134-434); RBC 4.13 M/mm3 (3.60-5.2); RDW 17.5 % (11.6-15.6); WHITE BLOOD COUNT 7.6 K/mm3 (4.0-10.0)
[2022-07-12] MEDS ORDERED: LABETALOL HCL 20 MG/4 ML VIAL ONE (07:28)
[2022-07-12 07:29] LABS: VENOUS BASE EXCESS -3.2 mmol/L (-2-2); VENOUS O2 SATURATION 99.3 % (70-80); VENOUS PCO2 38.4 mmHg (38-52); VENOUS PH 7.369 (7.310-7.410)
[2022-07-12] MEDS ORDERED: LABETALOL HCL INJECTION 300 MG in SODIUM CHLORIDE 240 ML IV SCH (07:30)
[2022-07-12 07:36] LABS: INR 1.02 (0.83-1.09); PROTHROMBIN TIME (PATIENT) 11.8 SEC (9.7-13.0)
[2022-07-12] MEDS ORDERED: levETIRAcetam 500 MG/5 ML INJECTION VIAL IVPB ONE ×2 (07:37→07:38)
[2022-07-12 07:39] LABS: ACTIVATED PTT 34.1 SECONDS (25.2-36.5)
[2022-07-12 07:46] LABS: CHLORIDE 102 mmol/L (98-107); SODIUM 134 mmol/L (136-145)
[2022-07-12 07:48] LABS: ALBUMIN 3.4 g/dl (3.4-5.0); ANION GAP 12 MMOL/L (8-16); CALCIUM 9.5 mg/dL (8.5-10.1); CO2 21 mmol/L (21-32); GLUCOSE,RANDOM 182 mg/dL (74-106); MAGNESIUM 2.2 mg/dL (1.8-2.4)
[2022-07-12 07:51] LABS: SGPT/ALT 27 U/L (13-61)
[2022-07-12 07:52] LABS: PHOSPHOROUS 4.5 mg/dL (2.5-4.9); SGOT/AST 30 U/L (15-37)
[2022-07-12 07:53] LABS: BILIRUBIN,TOTAL 0.5 mg/dL (0.2-1); TOT PROT 8.2 g/dl (6.4-8.2)
[2022-07-12 07:54] LABS: ALK PHOS 75 U/L (45-117)
[2022-07-12 07:56] LABS: N-TERMINAL BNP 15563.2 pg/ml (5-125)
[2022-07-12 08:02] VITALS: TEMP 95.2
[2022-07-12 08:05] LABS: CREATININE 7.6 mg/dL (0.55-1.3)
[2022-07-12 09:32] VITALS: BP 176/90; PULSE 64; RESP 14
== END 2022-07-12 09:29 | disposition short-term general hospital (02) ==
LOC: JER 06:54 → UNDOADMIN 07:08 → JERBED 07:08 → JER 09:29
PROC: 0BH17EZ Insertion of Endotracheal Airway into Trachea, Via Natural or Artificial Opening (ICD-10-PCS; principal; 2022-07-12)
PROC: 3E033GC Introduction of Other Therapeutic Substance into Peripheral Vein, Percutaneous Approach (ICD-10-PCS; 2022-07-12)
PROC: 3E033GC Introduction of Other Therapeutic Substance into Peripheral Vein, Percutaneous Approach (ICD-10-PCS; 2022-07-12)
PROC: 3E033GC Introduction of Other Therapeutic Substance into Peripheral Vein, Percutaneous Approach (ICD-10-PCS; 2022-07-12)
DX: I63.9 Cerebral infarction, unspecified (principal); I62.9 Nontraumatic intracranial hemorrhage, unspecified; N18.6 End stage renal disease; Z99.2 Dependence on renal dialysis; Z20.822 Contact with and (suspected) exposure to COVID-19
CPT/HCPCS: 0241U-QW; 36415; 36430; 70450-TC; 71045-TC-FY; 80053; 82803; 82962; 83605; 83735; 83880; 84100; 84484; 85025; 85610; 85730; 86850; 86900; 86901; 93005; 93010; 99291; 99292; P9034